=== PATIENT | male | born 1950 | race Caucasian/White ===

== ENCOUNTER 2018-05-03 16:26 | Inpatient (IN) | payer MEDICARE ==
[~2018-05-03] VITALS: Ht 172.7 cm; Wt 70.5 kg
[~2018-05-03 16:26] MED LIST: ALBU2.5V5 NEB; CEFP200T PO; DOXY100T PO; FLUT1DIS3 IH; FLUT1DIS5 IH; FURO-69 PO; LEVO750T31 PO; METO25TA4 PO; PANT40TA3 PO; POTA10TA12 PO; PRED-220 PO; TAMS0.4C97 PO; TIOT18CA IH
[2018-05-03] MEDS ORDERED: IV NORMAL SALINE 1000ML BAG 1,000 ML IV ONE (16:45)
[2018-05-03 16:55] LABS: BASO % 0 % (0-3); EOS # 0.1 x10^3/uL (0.0-0.7); EOS % 1 % (0-3); HEMATOCRIT 40.9 % (39.0-53.0); HEMOGLOBIN 13.4 g/dL (13.0-17.5); LYMPH # 0.7 x10^3/uL (1.0-4.8); LYMPH % 5 % (24-48); MEAN CORPUSCULAR HEMOGLOBIN 30 pg (25-35); MEAN CORPUSCULAR HGB CONC 33 g/dL (31-37); MEAN CORPUSCULAR VOLUME 92 fL (79-100); MONO # 0.8 x10^3/uL (0.0-1.1); MONO % 5 % (0-9); NEUT # 13.7 x10^3uL (1.8-7.7); NEUT % 89 % (31-73); PLATELET COUNT 225 x10^3/uL (140-400); RED BLOOD COUNT 4.44 x10^6/uL (4.30-5.70); RED CELL DISTRIBUTION WIDTH 13.7 % (11.5-14.5); WHITE BLOOD COUNT 15.3 x10^3/uL (4.0-11.0)
--- NOTE | 2018-05-03 17:12 | RAD ---
CHEST AP ONLY History: Shortness of air, wet cough Comparison: 04/14/2016 Findings: Single view of the chest is submitted. There are patchy foci of airspace and interstitial opacity greatest of the mid hemithoraces. There is no pleural fluid or pneumothorax. Heart size is stable, within normal limits. Impression: 1. There are patchy foci of airspace and interstitial opacity bilaterally which may be due to pneumonia or edema. Electronically signed by: Salvador Alva MD (05/03/2018 5:07 PM) [facility]
[2018-05-03] MEDS ORDERED: IPRATRPIUM/ALBUTEROL 0.5/2.5MG 3 ML NEBU. NEB ONE ×2 (17:15→19:15)
[2018-05-03] MEDS ORDERED: methylPREDNISolone SOD SUCC PF 125 MG/2 ML VIAL. IV ONE (17:15)
[2018-05-03 17:20] LABS: % BANDS 9 % (0-9); % LYMPHS 11 % (24-48); % MONOS 4 % (0-10); % SEGS 76 % (35-66); PLT ESTIMATE ADEQUATE (ADEQUATE)
[2018-05-03] MEDS ORDERED: AZITHRMYCN 500MG IVPB FOR OMNI 250 ML IV ONE (17:30)
[2018-05-03] MEDS ORDERED: cefTRIAXone IV Push 1 GM VIAL. IVP ONE (17:30)
--- NOTE | 2018-05-03 17:30 | PHYS DOC ---
Past Medical History Past Medical History: Asthma, CHF, COPD, GERD Additional Past Medical Histor: BPH, home oxygen Past Surgical History: Other Additional Past Surgical Histo: left shoulder rotator cuff repair Additional Information: 1/2 ppd Alcohol Use: Sober Drug Use: None Adult General Chief Complaint Chief Complaint: DYSPNEA/RESPIRATOY DISTRESS HPI HPI 67-year-old male presents to ER via EMS for complaints of shortness of air. Per EMS patient was dropped off at the fire station with oxygenation of 68% and was cyanotic around the lips. Patient is O2 dependent with history of COPD. EMS administered DuoNeb with improved symptoms prior to arrival to ER. On arrival patient is on oxygen via nasal cannula with O2 sat of 89-90%. Patient is denying any pain. Pt reports over past few days he has started feeling fatigued with prod. cough. He reports he felt feverish. He denies CP/palpitations. He denies swelling. He reports his appetite has been less- denies N/V/D. He denies urinary sxs. He reports he smokes <1ppd. He denies any recent travel. He denies flu vaccine in 2018. Review of Systems Review of Systems Constitutional: Reports feeling feverish with gen. weakness/fatigue Eyes: Denies change in visual acuity, redness, or eye pain [] HENT: Denies nasal congestion or sore throat [] Respiratory: Reports prod. cough with SOA Cardiovascular: Denies CP/palpitations GI: Denies abdominal pain, nausea, vomiting, bloody stools or diarrhea [] : Denies dysuria or hematuria [] Musculoskeletal: Denies back/neck pain or joint pain [] Integument: Denies rash, swelling or skin lesions [] Neurologic: Denies headache, focal weakness or sensory changes [] Endocrine: Denies polyuria or polydipsia [] All other systems were reviewed and found to be within normal limits, except as documented in this note. Current Medications Current Medications Current Medications Medications (Trade) Dose Ordered Sig/Elijah Start Time Stop Time Status Last Admin Dose Admin Albuterol/ Ipratropium (Duoneb) 3 ml 1X ONCE 05/03/18 17:15 05/03/18 17:16 DC 05/03/18 17:01 3 ML Azithromycin 250 ml @ 250 mls/hr 1X ONCE 05/03/18 17:30 05/03/18 18:29 DC 05/03/18 18:11 250 MLS/HR Ceftriaxone Sodium (Rocephin) 1 gm 1X ONCE 05/03/18 17:30 05/03/18 17:31 DC 05/03/18 18:06 1 GM Methylprednisolone Sodium Succinate (SOLU-Medrol 125MG VIAL) 125 mg 1X ONCE 05/03/18 17:15 05/03/18 17:16 DC 05/03/18 18:02 125 MG Sodium Chloride 1,000 ml @ 1,000 mls/hr 1X ONCE 05/03/18 16:45 05/03/18 17:44 DC 05/03/18 18:00 1,000 MLS/HR Allergies Allergies Allergies Coded Allergies Type Severity Reaction Last Updated Verified morphine Adverse Reaction Intermediate Itching 04/14/16 Yes Physical Exam Physical Exam Constitutional: Well developed, well nourished, no acute distress, non-toxic appearance. Speaking in full sentences HENT: Normocephalic, atraumatic, bilateral ears normal, mucous membranes pink/ dry, nose normal. [] Eyes: Pupils equal, conjunctiva normal, no discharge. [] Neck: Normal range of motion, no tenderness, supple, no stridor/gross adenopathy. Trachea midline Cardiovascular: Tachycardic heart rate regular rhythm, no murmur [] Lungs & Thorax: Coarse rhonchi with expiratory wheezing in upper lobes- diminished air movement throughout all lung munson with less air movement in bases. Resp. labored. Abdomen: Bowel sounds normal, soft, no tenderness Skin: Warm, dry, no erythema, no rash. [] Back: No tenderness, no CVA tenderness. [] Extremities: No tenderness, no cyanosis, no clubbing, ROM intact, no edema. [] Neurologic: Alert and oriented X 3, normal motor function, normal sensory function, no focal deficits noted. [] Psychologic: Affect normal, judgement normal, mood normal. [] Current Patient Data Vital Signs Vital Signs Date Time Temp Pulse Resp B/P (MAP) Pulse Ox O2 Delivery O2 Flow Rate FiO2 05/03/18 17:30 94 24 133/64 (87) 92 Nasal Cannula 4.0 05/03/18 16:26 98.9 98.9 Lab Values Laboratory Tests Test 05/03/18 16:40 05/03/18 17:13 05/03/18 17:15 White Blood Count 15.3 x10^3/uL (4.0-11.0) H Red Blood Count 4.44 x10^6/uL (4.30-5.70) Hemoglobin 13.4 g/dL (13.0-17.5) Hematocrit 40.9 % (39.0-53.0) Mean Corpuscular Volume 92 fL (79-100) Mean Corpuscular Hemoglobin 30 pg (25-35) Mean Corpuscular Hemoglobin Concent 33 g/dL (31-37) Red Cell Distribution Width 13.7 % (11.5-14.5) Platelet Count 225 x10^3/uL (140-400) Neutrophils (%) (Auto) 89 % (31-73) H Lymphocytes (%) (Auto) 5 % (24-48) L Monocytes (%) (Auto) 5 % (0-9) Eosinophils (%) (Auto) 1 % (0-3) Basophils (%) (Auto) 0 % (0-3) Neutrophils # (Auto) 13.7 x10^3uL (1.8-7.7) H Lymphocytes # (Auto) 0.7 x10^3/uL (1.0-4.8) L Monocytes # (Auto) 0.8 x10^3/uL (0.0-1.1) Eosinophils # (Auto) 0.1 x10^3/uL (0.0-0.7) Basophils # (Auto) 0.0 x10^3/uL (0.0-0.2) Segmented Neutrophils % 76 % (35-66) H Band Neutrophils % 9 % (0-9) Lymphocytes % 11 % (24-48) L Monocytes % 4 % (0-10) Platelet Estimate Adequate (ADEQUATE) Influenza Type A Antigen Negative (NEGATIVE) Influenza Type B Antigen Negative (NEGATIVE) Sodium Level 139 mmol/L (136-145) Potassium Level 4.3 mmol/L (3.5-5.1) Chloride Level 93 mmol/L (98-107) L Carbon Dioxide Level 42 mmol/L (21-32) H Anion Gap 4 (6-14) L Blood Urea Nitrogen 15 mg/dL (8-26) Creatinine 0.5 mg/dL (0.7-1.3) L Estimated GFR (Cockcroft-Gault) 165.4 BUN/Creatinine Ratio 30 (6-20) H Glucose Level 163 mg/dL (70-99) H Lactic Acid Level 1.3 mmol/L (0.4-2.0) Calcium Level 9.1 mg/dL (8.5-10.1) Magnesium Level 2.0 mg/dL (1.8-2.4) Total Bilirubin 0.5 mg/dL (0.2-1.0) Aspartate Amino Transferase (AST) 16 U/L (15-37) Alanine Aminotransferase (ALT) 13 U/L (16-63) L Alkaline Phosphatase 145 U/L (46-116) H Troponin I Quantitative < 0.017 ng/mL (0.000-0.055) Total Protein 6.8 g/dL (6.4-8.2) Albumin 3.3 g/dL (3.4-5.0) L Albumin/Globulin Ratio 0.9 (1.0-1.7) L Laboratory Tests 05/03/18 16:40 Laboratory Tests 05/03/18 17:15 Microbiology 05/03/18 Blood Culture - Final, Complete NO GROWTH AFTER 5 DAYS EKG EKG EKG obtained 05/03/18 at [address] Negron Sinus tachycardia Rate 105 No STEMI Radiology/Procedures Radiology/Procedures PROCEDURE: CHEST AP ONLY CHEST AP ONLY History: Shortness of air, wet cough Comparison: 04/14/2016 Findings: Single view of the chest is submitted. There are patchy foci of airspace and interstitial opacity greatest of the mid hemithoraces. There is no pleural fluid or pneumothorax. Heart size is stable, within normal limits. Impression: 1. There are patchy foci of airspace and interstitial opacity bilaterally which may be due to pneumonia or edema. Electronically signed by: Donovan Blanchard MD (05/03/2018 5:07 PM) [facility] DICTATED and SIGNED BY: DONOVAN BLANCHARD MD DATE: 05/03/18 6428 Course & Med Decision Making Course & Med Decision Making Pertinent Labs and Imaging studies reviewed. (See chart for details) 1740: On reevaluation following dose of Solu-Medrol and DuoNeb treatment patient reports his symptoms have significantly improved. Respirations are equal and nonlabored. Patient has improved lung sounds throughout with increased air movement in bases. Patient is speaking in full sentences. Discussed chest x-ray with probable pneumonia and WBCs at 15.3 with 9 bands. Patient denies any recent hospitalization. Blood cultures were obtained and lactic acid was normal limits at 1.3. Patient was started on IV Rocephin and azithromycin for CAP. Discussed plans for admission and pt is agreeable. Will admit to hospitalist services for further care/monitoring. 1814: Spoke with Dr. Cutler, hospitalist and discussed pt's case and plan of care- per his request will consult pulmonology with admit orders. Pt while waiting on room assignment for admit started having increased SOA- O2 sat mid 80's on 4L O2. Additional Duoneb ordered. Dragon Disclaimer Dragon Disclaimer This electronic medical record was generated, in whole or in part, using a voice recognition dictation system. Departure Departure Impression: Primary Impression: COPD exacerbation Additional Impression: Pneumonia Disposition: ADMITTED INPATIENT Admitting Physician: Casandra Cutler Condition: STABLE Referrals: TOMMIE FLAHERTY MD (PCP) Scripts Ipratropium/Albuterol Sulfate (DUONEB 0.5-3(2.5) MG/3 ML) 3 Ml Ampul.neb 3 ML NEB RTQID for copd MDD 1, #30 EACH Prov: ALBERT MONTEZ MD 05/10/18 Problem Qualifiers EUGENE BANDA APRN May 03, 2018 17:30
[2018-05-03 17:35] LABS: CALCIUM 9.1 mg/dL (8.5-10.1); CREATININE 0.5 mg/dL (0.7-1.3); GFR 165.4; POTASSIUM 4.3 mmol/L (3.5-5.1)
[2018-05-03 17:41] LABS: ALBUMIN 3.3 g/dL (3.4-5.0); ALBUMIN/GLOBULIN RATIO 0.9 (1.0-1.7); TOTAL BILIRUBIN 0.5 mg/dL (0.2-1.0); TOTAL PROTEIN 6.8 g/dL (6.4-8.2)
[2018-05-03 17:51] LABS: INFLUENZA A PATIENT NEGATIVE (NEGATIVE); INFLUENZA B PATIENT NEGATIVE (NEGATIVE)
[2018-05-03 19:15] LABS: BASE EXCESS COOX 10 mmol/L (-3-3); HCO3 COOX 39 mmol/L (21-28); METHEMOGLOBIN 0.3 % (0.0-1.9); OXYHEMOGLOBIN 85.1 %; PO2 COOX 56 mmHg (65-108); SAT O2 COOX 88 % (92-99)
[2018-05-03 19:45] VITALS: BP 117/72
--- NOTE | 2018-05-03 19:45 | NUR ---
The patient, YOUNG PENNINGTON, 67 y/o, M admitted by ANÍBAL BAUTISTA III, DO, was given written information regarding hospital policies, unit procedures and contact persons. Valuables were checked and left with the patient.
[2018-05-03 20:24] LABS: PCO2 COOX 79 mmHg (35-46)
[2018-05-03 23:00] VITALS: BP 112/58
[2018-05-04 03:00] VITALS: BP 123/71
[2018-05-04 07:15] VITALS: BP 142/80
[2018-05-04] MEDS ORDERED: IPRATRPIUM/ALBUTEROL 0.5/2.5MG 3 ML NEBU. NEB STA (07:49)
--- NOTE | 2018-05-04 07:57 | PDOC1 ---
History and Physical Date of Admission Date of Admission DATE: 05/03/18 TIME: 19:54 Identification/Chief Complaint Chief Complaint Shortness of breath Source Source: Chart review, Patient History of Present Illness History of Present Illness 65-year-old smoker with COPD, who started having respiratory symptoms about 2 weeks ago. He relates that between coughing, shortness of breath, sneezing and nasal dripping, symptoms were essentially getting worse and worse. He does have COPD and is home O2 dependent on 2 liters. This, however, does not keep him from smoking on a regular basis. His breathing even at rest has been getting worse. Cough is significant. He denied any fevers or chills over the past couple of weeks. Denies any sick contact. Did not have the flu vaccine. POC rapid flu testing negative Per EMS patient was dropped off at the fire station with oxygenation of 68% and was cyanotic around the lips. Patient is O2 dependent with history of COPD. EMS administered DuoNeb with improved symptoms prior to arrival to ER. On arrival patient is on oxygen via nasal cannula with O2 sat of 89-90%, however he was continuing to have increased respirations and desaturations. Patient is denying any pain. Pt reports over past few days he has started feeling fatigued with prod. cough. He reports he felt feverish. He denies CP/palpitations. He denies swelling. He reports his appetite has been less- denies N/V/D. He denies urinary sxs. He reports he smokes <1ppd. Placed on BIPAP after my eval 17/10 with rate of 18 and FI02 of 60%. Past Medical History Cardiovascular: Other Pulmonary: COPD, Pneumonia, Other GI: No pertinent hx Heme/Onc: No pertinent hx Hepatobiliary: No pertinent hx Psych: No pertinent hx Musculoskeletal: No pain Rheumatologic: No pertinent hx Infectious disease: No pertinent hx Renal/: No pertinent hx Endocrine: No pertinent hx Past Surgical History Past Surgical History: Other Family History Family History: Hypertension Social History ALCOHOL: none Drugs: None Current Problem List Problem List Problems Medical Problems: (1) COPD exacerbation Status: Acute Current Medications Current Medications Current Medications Albuterol/ Ipratropium (Duoneb) 3 ml 1X ONCE NEB Last administered on at 17:01; Start 05/03/18 at 17:15; Stop 05/03/18 at 17:16; Status DC Sodium Chloride 1,000 ml @ 1,000 mls/hr 1X ONCE IV Last administered on at 18:00; Start 05/03/18 at 16:45; Stop 05/03/18 at 17:44; Status DC Methylprednisolone Sodium Succinate (SOLU-Medrol 125MG VIAL) 125 mg 1X ONCE IV Last administered on 05/03/18at 18:02; Start 05/03/18 at 17:15; Stop 05/03/18 at 17:16; Status DC Ceftriaxone Sodium (Rocephin) 1 gm 1X ONCE IVP Last administered on 05/03/18at 18:06; Start 05/03/18 at 17:30; Stop 05/03/18 at 17:31; Status DC Azithromycin 250 ml @ 250 mls/hr 1X ONCE IV Last administered on 05/03/18at 18: 11; Start 05/03/18 at 17:30; Stop 05/03/18 at 18:29; Status DC Albuterol/ Ipratropium (Duoneb) 3 ml 1X ONCE NEB Last administered on at 19:06; Start 05/03/18 at 19:15; Stop 05/03/18 at 19:16; Status DC Influenza Virus Vaccine (Afluria Trivalent [id number] Syringe) 0.5 ml ONCE ONCE VAX IM ; Start 05/03/18 at 20:30; Stop 05/03/18 at 20:34; Status DC Albuterol/ Ipratropium (Duoneb) 3 ml RTQID NEB ; Start 05/04/18 at 08:00 Methylprednisolone Sodium Succinate (SOLU-Medrol 40MG VIAL) 40 mg Q12HR IV ; Start 05/04/18 at 09:00; Status UNV Budesonide (Pulmicort) 0.5 mg RTBID NEB ; Start 05/04/18 at 08:00; Status UNV Ceftriaxone Sodium (Rocephin) 1 gm Q24H IVP ; Start 05/04/18 at 08:00; Status UNV Doxycycline Hyclate 100 mg/ Dextrose 100 ml @ 50 mls/hr Q12HR IV ; Start at 09:00; Status UNV Albuterol/ Ipratropium (Duoneb) 3 ml 1X STAT NEB ; Start 05/04/18 at 07:49; Stop 05/04/18 at 07:50; Status UNV Albuterol Sulfate (Ventolin Neb Soln) 2.5 mg PRN Q4HRS NEB ; Start 05/04/18 at 08:00; Status UNV Metoprolol Tartrate (Lopressor) 12.5 mg BID PO ; Start 05/04/18 at 09:00; Status UNV Pantoprazole Sodium (Protonix) 40 mg DAILY PO ; Start 05/04/18 at 09:00; Status UNV Potassium Chloride (Klor-Con) 10 meq DAILY PO ; Start 05/04/18 at 09:00; Status UNV Tamsulosin HCl (Flomax) 0.4 mg DAILY PO ; Start 05/04/18 at 09:00; Status UNV Non-Formulary Medication (Tiotropium Rodessa (Spiriva)) 1 cap DAILY IH ; Start 05/04/18 at 09:00; Status UNV Active Scripts Active Doxycycline Hyclate 100 Mg Tablet 100 Mg PO BID Prednisone (Prednisone) 10 Mg Tablet 10 Mg PO UD Take 4 tablets by mouth daily for 5 days, then take 3 tablets by mouth daily for 5 days, then resume home dose of prednisone Prednisone (Prednisone) 10 Mg Tablet 10 Mg PO UD Take 4 tablets by mouth daily for 3 days, then take 3 tablets by mouth daily for 3 days, then take 2 tablet by mouth daily for 3 days, then take 1 tablet by mouth daily x 3 days, then stop. Reported Protonix (Pantoprazole Sodium) 40 Mg Tablet.dr 40 Mg PO DAILY Potassium Chloride 10 Meq Capsule.er 10 Meq PO DAILY Lasix (Furosemide) 20 Mg Tablet 1 Tab PO DAILY Albuterol Sulfate Neb Soln (Albuterol Sulfate) 2.5 Mg/3 Ml Vial.neb 1 Vial NEB PRN Q4HRS Advair 500-50 Diskus (Fluticasone/Salmeterol) 1 Each Disk.w.dev 1 Puff IH DAILY Spiriva (Tiotropium Rodessa) 18 Mcg Cap.w.dev 1 Cap IH DAILY Flomax (Tamsulosin Hcl) 0.4 Mg Cap.er.24h 1 Cap PO DAILY Metoprolol Tartrate 25 Mg Tablet 12.5 Mg PO BID Allergies Allergies: Coded Allergies: No Known Medication Allergies (Verified Allergy, Unknown, 3/5/19) morphine (Verified Adverse Reaction, Intermediate, Itching, 04/14/16) ROS General: YES: Fatigue, Malaise, Appetite; No: Chills, Night Sweats, Other PSYCHOLOGICAL ROS: No: Anxiety, Behavioral Disorder, Concentration difficultie , Decreased libido, Depression, Disorientation, Hallucinations, Hostility, Irritablity, Memory difficulties, Mood Swings, Obsessive thoughts, Physical abuse, Sexual abuse, Sleep disturbances, Suicidal ideation, Other Eyes: No Blurry vision, No Decreased vision, No Double vision, No Dry eyes, No Excessive tearing, No Eye Pain, No Itchy Eyes, No Loss of vision, No Photophobia , No Scotomata, No Uses contacts, No Uses glasses, No Other HEENT: No: Heacaches, Visual Changes, Hearing change, Nasal congestion, Nasal discharge, Oral lesions, Sinus pain, Sore Throat, Epistaxis, Sneezing, Snoring, Tinnitus, Vertigo, Vocal changes, Other ALLERGY AND IMMUNOLOGY: No: Hives, Insect Bite Sensitivity, Itchy/Watery Eyes, Nasal Congestion, Post Nasal Drip, Seasonal Allergies, Other Hematological and Lymphatic: No: Bleeding Problems, Blood Clots, Blood Transfusions, Brusing, Night Sweats, Pallor, Swollen Lymph Nodes, Other ENDOCRINE: No: Breast Changes, Galactorrhea, Hair Pattern Changes, Hot Flashes , Malaise/lethargy, Mood Swings, Palpitations, Polydipsia/polyuria, Skin Changes , Temperature Intolerance, Unexpected Weight Changes, Other Breast: No New/Changing Breast Lumps, No Nipple changes, No Nipple discharge, No Other Respiratory: YES: Cough, Shortness of breath, SOB with excertion, Tachypnea, Wheezing Cardiovascular: yes Palpitations, yes Edema; No Chest Pain, No Orthopnea, No Paroxysmal Noc. Dyspnea, No Lt Headedness, No Other Gastrointestinal: Yes Nausea, Yes Abdominal Pain; No Vomiting, No Diarrhea, No Constipation, No Melena, No Hematochezia, No Other Genitourinary: YES Flank Pain; No Dysuria, No Frequency, No Incontinence, No Hematuria, No Retention, No Discharge, No Urgency, No Pain, No Other, No , No , No , No , No , No , No Musculoskeletal: No Gait Disturbance, No Joint Pain, No Joint Stiffness, No Joint Swelling, No Muscle Pain, No Muscular Weakness, No Pain In:, No Swelling In:, No Other Neurological: No Behavorial Changes, No Bowel/Bladder ControlChng, No Confusion , No Dizziness, No Gait Disturbance, No Headaches, No Impaired Coord/balance, No Memory Loss, No Numbness/Tingling, No Seizures, No Speech Problems, No Tremors, No Visual Changes, No Weakness, No Other Skin: No Dry Skin, No Eczema, No Hair Changes, No Lumps, No Mole Changes, No Mottling, No Nail Changes, No Pruritus, No Rash, No Skin Lesion Changes, No Other, No Acne Physical Exam General: Alert, Oriented X3, Cooperative, No acute distress HEENT: Atraumatic, PERRLA, EOMI, Mucous membr. moist/pink Lungs: Other (Diffuse wheezes bilaterally with basilar rhonchi) Heart: S1S2, RRR, murmurs (4/6 systolic ejection murmur heard best at right 2nd ICS) Abdomen: Normal bowel sounds, Soft, No hepatosplenomegaly, No masses Extremities: No clubbing, No cyanosis, No edema, Normal pulses, No tenderness/ swelling Skin: No rashes, No breakdown, No significant lesion Neuro: Normal gait, Normal speech, Strength at 5/5 X4 ext, Normal tone, Sensation intact, Cranial nerves 3-12 NL, Reflexes 2+ Psych/Mental Status: Mental status NL, Mood NL Vitals Vitals Vital Signs Date Time Temp Pulse Resp B/P (MAP) Pulse Ox O2 Delivery O2 Flow Rate FiO2 05/04/18 07:37 100 BiPAP/CPAP 05/04/18 07:15 98.6 108 22 142/80 (100) 98.6 05/03/18 21:00 4.0 Labs Labs Laboratory Tests Test 05/03/18 16:40 05/03/18 17:13 05/03/18 17:15 05/03/18 19:12 White Blood Count 15.3 x10^3/uL (4.0-11.0) Red Blood Count 4.44 x10^6/uL (4.30-5.70) Hemoglobin 13.4 g/dL (13.0-17.5) Hematocrit 40.9 % (39.0-53.0) Mean Corpuscular Volume 92 fL (79-100) Mean Corpuscular Hemoglobin 30 pg (25-35) Mean Corpuscular Hemoglobin Concent 33 g/dL (31-37) Red Cell Distribution Width 13.7 % (11.5-14.5) Platelet Count 225 x10^3/uL (140-400) Neutrophils (%) (Auto) 89 % (31-73) Lymphocytes (%) (Auto) 5 % (24-48) Monocytes (%) (Auto) 5 % (0-9) Eosinophils (%) (Auto) 1 % (0-3) Basophils (%) (Auto) 0 % (0-3) Neutrophils # (Auto) 13.7 x10^3uL (1.8-7.7) Lymphocytes # (Auto) 0.7 x10^3/uL (1.0-4.8) Monocytes # (Auto) 0.8 x10^3/uL (0.0-1.1) Eosinophils # (Auto) 0.1 x10^3/uL (0.0-0.7) Basophils # (Auto) 0.0 x10^3/uL (0.0-0.2) Segmented Neutrophils % 76 % (35-66) Band Neutrophils % 9 % (0-9) Lymphocytes % 11 % (24-48) Monocytes % 4 % (0-10) Platelet Estimate Adequate (ADEQUATE) Influenza Type A Antigen Negative (NEGATIVE) Influenza Type B Antigen Negative (NEGATIVE) Sodium Level 139 mmol/L (136-145) Potassium Level 4.3 mmol/L (3.5-5.1) Chloride Level 93 mmol/L (98-107) Carbon Dioxide Level 42 mmol/L (21-32) Anion Gap 4 (6-14) Blood Urea Nitrogen 15 mg/dL (8-26) Creatinine 0.5 mg/dL (0.7-1.3) Estimated GFR (Cockcroft-Gault) 165.4 BUN/Creatinine Ratio 30 (6-20) Glucose Level 163 mg/dL (70-99) Lactic Acid Level 1.3 mmol/L (0.4-2.0) Calcium Level 9.1 mg/dL (8.5-10.1) Magnesium Level 2.0 mg/dL (1.8-2.4) Total Bilirubin 0.5 mg/dL (0.2-1.0) Aspartate Amino Transf (AST/SGOT) 16 U/L (15-37) Alanine Aminotransferase (ALT/SGPT) 13 U/L (16-63) Alkaline Phosphatase 145 U/L (46-116) Troponin I Quantitative < 0.017 ng/mL (0.000-0.055) Total Protein 6.8 g/dL (6.4-8.2) Albumin 3.3 g/dL (3.4-5.0) Albumin/Globulin Ratio 0.9 (1.0-1.7) O2 Saturation 88 % (92-99) Arterial Blood pH 7.32 (7.35-7.45) Arterial Blood pCO2 at Patient Temp 79 mmHg (35-46) Arterial Blood pO2 at Patient Temp 56 mmHg (65-108) Arterial Blood HCO3 39 mmol/L (21-28) Arterial Blood Base Excess 10 mmol/L (-3-3) Oxyhemoglobin 85.1 % Methemoglobin 0.3 % (0.0-1.9) Carbon Monoxide, Quantitative 2.8 % (0.0-1.9) FiO2 36 Laboratory Tests Test 05/03/18 16:40 05/03/18 17:13 05/03/18 17:15 05/03/18 19:12 White Blood Count 15.3 x10^3/uL (4.0-11.0) Red Blood Count 4.44 x10^6/uL (4.30-5.70) Hemoglobin 13.4 g/dL (13.0-17.5) Hematocrit 40.9 % (39.0-53.0) Mean Corpuscular Volume 92 fL (79-100) Mean Corpuscular Hemoglobin 30 pg (25-35) Mean Corpuscular Hemoglobin Concent 33 g/dL (31-37) Red Cell Distribution Width 13.7 % (11.5-14.5) Platelet Count 225 x10^3/uL (140-400) Neutrophils (%) (Auto) 89 % (31-73) Lymphocytes (%) (Auto) 5 % (24-48) Monocytes (%) (Auto) 5 % (0-9) Eosinophils (%) (Auto) 1 % (0-3) Basophils (%) (Auto) 0 % (0-3) Neutrophils # (Auto) 13.7 x10^3uL (1.8-7.7) Lymphocytes # (Auto) 0.7 x10^3/uL (1.0-4.8) Monocytes # (Auto) 0.8 x10^3/uL (0.0-1.1) Eosinophils # (Auto) 0.1 x10^3/uL (0.0-0.7) Basophils # (Auto) 0.0 x10^3/uL (0.0-0.2) Segmented Neutrophils % 76 % (35-66) Band Neutrophils % 9 % (0-9) Lymphocytes % 11 % (24-48) Monocytes % 4 % (0-10) Platelet Estimate Adequate (ADEQUATE) Influenza Type A Antigen Negative (NEGATIVE) Influenza Type B Antigen Negative (NEGATIVE) Sodium Level 139 mmol/L (136-145) Potassium Level 4.3 mmol/L (3.5-5.1) Chloride Level 93 mmol/L (98-107) Carbon Dioxide Level 42 mmol/L (21-32) Anion Gap 4 (6-14) Blood Urea Nitrogen 15 mg/dL (8-26) Creatinine 0.5 mg/dL (0.7-1.3) Estimated GFR (Cockcroft-Gault) 165.4 BUN/Creatinine Ratio 30 (6-20) Glucose Level 163 mg/dL (70-99) Lactic Acid Level 1.3 mmol/L (0.4-2.0) Calcium Level 9.1 mg/dL (8.5-10.1) Magnesium Level 2.0 mg/dL (1.8-2.4) Total Bilirubin 0.5 mg/dL (0.2-1.0) Aspartate Amino Transf (AST/SGOT) 16 U/L (15-37) Alanine Aminotransferase (ALT/SGPT) 13 U/L (16-63) Alkaline Phosphatase 145 U/L (46-116) Troponin I Quantitative < 0.017 ng/mL (0.000-0.055) Total Protein 6.8 g/dL (6.4-8.2) Albumin 3.3 g/dL (3.4-5.0) Albumin/Globulin Ratio 0.9 (1.0-1.7) O2 Saturation 88 % (92-99) Arterial Blood pH 7.32 (7.35-7.45) Arterial Blood pCO2 at Patient Temp 79 mmHg (35-46) Arterial Blood pO2 at Patient Temp 56 mmHg (65-108) Arterial Blood HCO3 39 mmol/L (21-28) Arterial Blood Base Excess 10 mmol/L (-3-3) Oxyhemoglobin 85.1 % Methemoglobin 0.3 % (0.0-1.9) Carbon Monoxide, Quantitative 2.8 % (0.0-1.9) FiO2 36 Images Images CXR - There are patchy foci of airspace and interstitial opacity bilaterally which may be due to pneumonia or edema. VTE Prophylaxis Ordered VTE Prophylaxis Devices: No VTE Pharmacological Prophylaxi: Yes Assessment/Plan Assessment/Plan A/P: [id number] respiratory failure - on BIPAP currently. Steroids, nebs, treat pneumonia. Consult pulm Community acquired pneumonia - rocephin + doxy Sepsis - tachy with RR and leukocytosis, this is likely from gram positive or high risk of gram negative/atypical pneumonia with history of COPD. Given IVF. Antibiotics given Acute exacerbation of chronic obstructive pulmonary disease - as above, nebs, steroids Tobacco dependence - counseled. Nicotine patch Murmur - systolic, awaiting TTE. Likely from . Consulted cardiology per pt request HTN: controlled HLD - statin FEN - renal PPX - Heparin FULL CODE Inpatient for CAP with COPD exacerbation complicated by hypoxia and sepsis EVGENY ELIZABETH MD May 04, 2018 07:57
[2018-05-04] MEDS: BUDESONIDE 0.5 MG/2 ML NEBU. NEB SCH ×2 (08:00→19:48)
[2018-05-04] MEDS ORDERED: ALBUTEROL SULFATE 2.5 MG/3 ML NEBU. NEB PRN (08:00)
[2018-05-04] MEDS: IPRATRPIUM/ALBUTEROL 0.5/2.5MG 3 ML NEBU. NEB SCH ×4 (08:00→19:48)
--- NOTE | 2018-05-04 08:27 | EKG ---
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
[2018-05-04] MEDS ORDERED: NON FORMULARY ITEM (Tiotropium Bromide (Spiriva) 1 CAP) IH SCH (09:00)
[2018-05-04 09:15] LABS: BASO % 0 % (0-3); EOS % 0 % (0-3); HEMATOCRIT 40.3 % (39.0-53.0); LYMPH # 0.6 x10^3/uL (1.0-4.8); LYMPH % 3 % (24-48); MEAN CORPUSCULAR HEMOGLOBIN 30 pg (25-35); MEAN CORPUSCULAR HGB CONC 32 g/dL (31-37); MEAN CORPUSCULAR VOLUME 93 fL (79-100); MONO # 0.4 x10^3/uL (0.0-1.1); MONO % 3 % (0-9); NEUT # 15.1 x10^3uL (1.8-7.7); NEUT % 94 % (31-73); PLATELET COUNT 292 x10^3/uL (140-400); RED BLOOD COUNT 4.32 x10^6/uL (4.30-5.70); WHITE BLOOD COUNT 16.1 x10^3/uL (4.0-11.0)
--- NOTE | 2018-05-04 09:21 | NUR ---
SW following pt for anticipated dc needs. Chart reviewed. Pt lives at home with family and has home 02. No SW needs indicated at this time. Will continue to assess needs.
[2018-05-04 09:34] LABS: CALCIUM 9.3 mg/dL (8.5-10.1); CREATININE 0.6 mg/dL (0.7-1.3); POTASSIUM 4.3 mmol/L (3.5-5.1)
[2018-05-04] MEDS: DOXYCYCLINE HYCLATE 100 MG in IV DEXTROSE 5% 100ML 100 ML IV SCH ×2 (09:46→21:11)
[2018-05-04] MEDS: methylPREDNISolone SOD SUCC PF 40 MG/ML VIAL. IV SCH ×2 (09:46→21:09)
[2018-05-04] MEDS: TAMSULOSIN 0.4 MG CAP.ER.24H. PO SCH (09:47)
[2018-05-04] MEDS: cefTRIAXone IV Push 1 GM VIAL. IVP SCH (09:47)
[2018-05-04] MEDS: PANTOPRAZOLE 40 MG TABLET.DR. PO SCH (09:47)
[2018-05-04] MEDS: POTASSIUM CHLORIDE 10 MEQ TABLET.ER. PO SCH (09:47)
[2018-05-04] MEDS: METOPROLOL TART IMMED RELEASE 25 MG TABLET. PO SCH ×2 (09:48→21:10)
[2018-05-04 11:01] VITALS: BP 142/80
[2018-05-04] MEDS ORDERED: IPRATRPIUM/ALBUTEROL 0.5/2.5MG 3 ML NEBU. NEB SCH (12:00)
--- NOTE | 2018-05-04 12:03 | PDOC2 ---
BEN ROSS DETACKER 05/04/18 1203: CARDIAC CONSULT DATE OF CONSULT Date of Consult DATE: 05/04/18 TIME: 11:57 REASON FOR CONSULT Reason for Consult: aortic stenosis, worsening murmur REFERRING PHYSICIAN Referring Physician: Char SOURCE Source: Chart review, Patient HISTORY OF PRESENT ILLNESS HISTORY OF PRESENT ILLNESS This is a pleasant 67 yo male admitted for complains of coughing and SOA. Reports that he has been getting more SOA in the last month. He also continued to smoke tobacco. Reports that in the last few days he has been coughing more productively with greenish sputum. He has been using his inhalers and continues O2 at 2.5 LPM at home but continues to be SOA. No complains of palpitations or chest pain. No leg edema. No fever but sometimes feels like having hot flashes. No prior hx of valvular disease, CAD or any arrhythmias. PAST MEDICAL HISTORY Past Medical History Cardiovascular: Other (coronary calcium noted on CT scan of chest) Pulmonary: COPD, Pneumonia, Other (emphysema) GI: GERD Heme/Onc: No pertinent hx Hepatobiliary: No pertinent hx Psych: No pertinent hx Musculoskeletal: OA Rheumatologic: No pertinent hx Infectious disease: No pertinent hx ENT: No pertinent hx Renal/: No pertinent hx Endocrine: No pertinent hx Dermatology: No pertinent hx PAST SURGICAL HISTORY Past Surgical History left rotator cuff repair X 2 FAMILY HISTORY Family History noncontributory to CV SOCIAL HISTORY Smoke: No ALCOHOL: none Drugs: None CURRENT MEDICATIONS CURRENT MEDICATIONS Current Medications Medications (Trade) Dose Ordered Sig/Elijah Route PRN Reason Start Time Stop Time Status Last Admin Dose Admin Albuterol/ Ipratropium (Duoneb) 3 ml 1X ONCE NEB 05/03/18 17:15 05/03/18 17:16 DC 05/03/18 17:01 Sodium Chloride 1,000 ml @ 1,000 mls/hr 1X ONCE IV 05/03/18 16:45 05/03/18 17:44 DC 05/03/18 18:00 Methylprednisolone Sodium Succinate (SOLU-Medrol 125MG VIAL) 125 mg 1X ONCE IV 05/03/18 17:15 05/03/18 17:16 DC 05/03/18 18:02 Ceftriaxone Sodium (Rocephin) 1 gm 1X ONCE IVP 05/03/18 17:30 05/03/18 17:31 DC 05/03/18 18:06 Azithromycin 250 ml @ 250 mls/hr 1X ONCE IV 05/03/18 17:30 05/03/18 18:29 DC 05/03/18 18:11 Albuterol/ Ipratropium (Duoneb) 3 ml 1X ONCE NEB 05/03/18 19:15 05/03/18 19:16 DC 05/03/18 19:06 Albuterol/ Ipratropium (Duoneb) 3 ml RTQID NEB 05/04/18 08:00 05/04/18 08:00 Methylprednisolone Sodium Succinate (SOLU-Medrol 40MG VIAL) 40 mg Q12HR IV 05/04/18 09:00 05/04/18 09:46 Budesonide (Pulmicort) 0.5 mg RTBID NEB 05/04/18 08:00 05/04/18 08:00 Ceftriaxone Sodium (Rocephin) 1 gm Q24H IVP 05/04/18 09:00 05/04/18 09:47 Doxycycline Hyclate 100 mg/ Dextrose 100 ml @ 50 mls/hr Q12HR IV 05/04/18 09:00 05/04/18 09:46 Albuterol/ Ipratropium (Duoneb) 3 ml 1X STAT NEB 05/04/18 07:49 05/04/18 08:02 DC 05/04/18 07:58 Metoprolol Tartrate (Lopressor) 12.5 mg BID PO 05/04/18 09:00 05/04/18 09:48 Pantoprazole Sodium (Protonix) 40 mg DAILYAC PO 05/04/18 09:00 05/04/18 09:47 Potassium Chloride (Klor-Con) 10 meq DAILY PO 05/04/18 09:00 05/04/18 09:47 Tamsulosin HCl (Flomax) 0.4 mg DAILY PO 05/04/18 09:00 05/04/18 09:47 ALLERGIES ALLERGIES: Coded Allergies: No Known Medication Allergies (Verified Allergy, Unknown, 05/04/18) morphine (Verified Adverse Reaction, Intermediate, Itching, 04/14/16) ROS Review of System 14 point ROS evaluated with pertinent positives noted per HPI PHYSICAL EXAM General: Alert, Oriented X3, Cooperative, mild distress HEENT: Atraumatic, Mucous membr. moist/pink Lungs: Other (diminished with diffuse wheeze) Heart: Regular rate (sinus tach), Normal S1, Normal S2, Other (2/6 systolic murmur otherwise no significant murmur) Abdomen: Soft, No tenderness Extremities: No cyanosis, No edema Skin: No breakdown, No significant lesion Neuro: Normal speech, Sensation intact Psych/Mental Status: Mental status NL, Mood NL MUSCULOSKELETAL: Osteoarthritic changes both hands VITALS VITALS Vital Signs Date Time Temp Pulse Resp B/P (MAP) Pulse Ox O2 Delivery O2 Flow Rate FiO2 05/04/18 11:01 98.9 105 20 142/80 (100) 93 BiPAP/CPAP 98.9 05/04/18 08:03 4.0 LABS Lab: Laboratory Tests Test 05/03/18 16:40 05/03/18 17:13 05/03/18 17:15 05/03/18 19:12 White Blood Count 15.3 x10^3/uL (4.0-11.0) Red Blood Count 4.44 x10^6/uL (4.30-5.70) Hemoglobin 13.4 g/dL (13.0-17.5) Hematocrit 40.9 % (39.0-53.0) Mean Corpuscular Volume 92 fL (79-100) Mean Corpuscular Hemoglobin 30 pg (25-35) Mean Corpuscular Hemoglobin Concent 33 g/dL (31-37) Red Cell Distribution Width 13.7 % (11.5-14.5) Platelet Count 225 x10^3/uL (140-400) Neutrophils (%) (Auto) 89 % (31-73) Lymphocytes (%) (Auto) 5 % (24-48) Monocytes (%) (Auto) 5 % (0-9) Eosinophils (%) (Auto) 1 % (0-3) Basophils (%) (Auto) 0 % (0-3) Neutrophils # (Auto) 13.7 x10^3uL (1.8-7.7) Lymphocytes # (Auto) 0.7 x10^3/uL (1.0-4.8) Monocytes # (Auto) 0.8 x10^3/uL (0.0-1.1) Eosinophils # (Auto) 0.1 x10^3/uL (0.0-0.7) Basophils # (Auto) 0.0 x10^3/uL (0.0-0.2) Segmented Neutrophils % 76 % (35-66) Band Neutrophils % 9 % (0-9) Lymphocytes % 11 % (24-48) Monocytes % 4 % (0-10) Platelet Estimate Adequate (ADEQUATE) Influenza Type A Antigen Negative (NEGATIVE) Influenza Type B Antigen Negative (NEGATIVE) Sodium Level 139 mmol/L (136-145) Potassium Level 4.3 mmol/L (3.5-5.1) Chloride Level 93 mmol/L (98-107) Carbon Dioxide Level 42 mmol/L (21-32) Anion Gap 4 (6-14) Blood Urea Nitrogen 15 mg/dL (8-26) Creatinine 0.5 mg/dL (0.7-1.3) Estimated GFR (Cockcroft-Gault) 165.4 BUN/Creatinine Ratio 30 (6-20) Glucose Level 163 mg/dL (70-99) Lactic Acid Level 1.3 mmol/L (0.4-2.0) Calcium Level 9.1 mg/dL (8.5-10.1) Magnesium Level 2.0 mg/dL (1.8-2.4) Total Bilirubin 0.5 mg/dL (0.2-1.0) Aspartate Amino Transf (AST/SGOT) 16 U/L (15-37) Alanine Aminotransferase (ALT/SGPT) 13 U/L (16-63) Alkaline Phosphatase 145 U/L (46-116) Troponin I Quantitative < 0.017 ng/mL (0.000-0.055) Total Protein 6.8 g/dL (6.4-8.2) Albumin 3.3 g/dL (3.4-5.0) Albumin/Globulin Ratio 0.9 (1.0-1.7) O2 Saturation 88 % (92-99) Arterial Blood pH 7.32 (7.35-7.45) Arterial Blood pCO2 at Patient Temp 79 mmHg (35-46) Arterial Blood pO2 at Patient Temp 56 mmHg (65-108) Arterial Blood HCO3 39 mmol/L (21-28) Arterial Blood Base Excess 10 mmol/L (-3-3) Oxyhemoglobin 85.1 % Methemoglobin 0.3 % (0.0-1.9) Carbon Monoxide, Quantitative 2.8 % (0.0-1.9) FiO2 36 Test 05/04/18 08:45 05/04/18 08:55 Sodium Level 139 mmol/L (136-145) Potassium Level 4.3 mmol/L (3.5-5.1) Chloride Level 95 mmol/L (98-107) Carbon Dioxide Level 42 mmol/L (21-32) Anion Gap 2 (6-14) Blood Urea Nitrogen 17 mg/dL (8-26) Creatinine 0.6 mg/dL (0.7-1.3) Estimated GFR (Cockcroft-Gault) 134.0 Glucose Level 197 mg/dL (70-99) Calcium Level 9.3 mg/dL (8.5-10.1) White Blood Count 16.1 x10^3/uL (4.0-11.0) Red Blood Count 4.32 x10^6/uL (4.30-5.70) Hemoglobin 13.0 g/dL (13.0-17.5) Hematocrit 40.3 % (39.0-53.0) Mean Corpuscular Volume 93 fL (79-100) Mean Corpuscular Hemoglobin 30 pg (25-35) Mean Corpuscular Hemoglobin Concent 32 g/dL (31-37) Red Cell Distribution Width 14.0 % (11.5-14.5) Platelet Count 292 x10^3/uL (140-400) Neutrophils (%) (Auto) 94 % (31-73) Lymphocytes (%) (Auto) 3 % (24-48) Monocytes (%) (Auto) 3 % (0-9) Eosinophils (%) (Auto) 0 % (0-3) Basophils (%) (Auto) 0 % (0-3) Neutrophils # (Auto) 15.1 x10^3uL (1.8-7.7) Lymphocytes # (Auto) 0.6 x10^3/uL (1.0-4.8) Monocytes # (Auto) 0.4 x10^3/uL (0.0-1.1) Eosinophils # (Auto) 0.0 x10^3/uL (0.0-0.7) Basophils # (Auto) 0.0 x10^3/uL (0.0-0.2) ECHOCARDIOGRAM ECHOCARDIOGRAM <Conclusion> The left ventricular systolic function is normal and the ejection fraction is within normal range. The Ejection Fraction is 55%. Doppler and Color Flow revealed trace to mild tricuspid regurgitation. The PA pressure was estimated at 48 mmHg. No significant valvular disease. DATE: 10/12/15 1534 ASSESSMENT/PLAN ASSESSMENT/PLAN 1. Acute respiratory failure with AECOPD with continued tobaccoism 2. Murmur: low grade systolic, none significant awaiting TTE. 3. Reactive sinus tach: physiologic 4. HTN: controlled 5. HLP Recommendations 1. Continue with bipap. May need to conuslt pulmonary will defer to PCP. 2. May hold BB with noted wheeze. 3. TTE. smopking cessation. supportive care. FAREED PRADO MD 05/04/18 1419: CARDIAC CONSULT ASSESSMENT/PLAN ASSESSMENT/PLAN Patient seen and examined. Agree with MANAGER OF DATA's assessment and plan. Sinus tachycardia physiologic 2-D echo showed normal LV function without any significant aortic stenosis Continue current treatment for acute COPD exacerbation per pulmonary team Thank you for your consultation BEN ROSS APRN May 04, 2018 12:03 FAREED PRADO MD May 04, 2018 14:19
--- NOTE | 2018-05-04 12:23 | CARD ---
MR#: [id number] Date of Study: 05/04/2018 Ordering Physician: BEN ROSS, Referring Physician: ANÍBAL BAUTISTA Tech: Selina Lua DAQUAN APPROVED REPORT EXAM: Two-dimensional and M-mode echocardiogram with Doppler and color Doppler. Other Information Quality : Technically LimitedHR: 100bpm Rhythm : TachycardiaTechnically limited study due to COPD. INDICATION Murmur 2D DIMENSIONS RVDd2.7 (2.9-3.5cm)Left Atrium(2D)3.3 (1.6-4.0cm) IVSd1.0 (0.7-1.1cm)Aortic Root(2D)4.1 (2.0-3.7cm) LVDd4.2 (3.9-5.9cm)LVOT Diameter2.1 (1.8-2.4cm) PWd1.0 (0.7-1.1cm)LVDs3.2 (2.5-4.0cm) FS (%) 24.7 %SV39.0 ml LVEF(%)49.4 (>50%) Aortic Valve AoV Peak Jesus.118.3cm/sAoV VTI25.1cm AO Peak GR.5.6mmHgLVOT Peak Jesus.85.1cm/s AO Mean GR.3mmHgAVA (VMAX)2.56cm2 JOSE (VTI)2.60cm2 Mitral Valve MV E Hwcxihno66.2cm/sMV DECEL ATBP589xi MV A Ltgleopy469.7cm/sE/A Ratio0.8 MV A Byzpjxpd20jq Pulmonary Valve PV Peak Cnovnlrj575.0cm/s Tricuspid Valve TR P. Hznmlpmz198kn/sRAP FWSMWAQO0xlJk TR Peak Gr.14rxFiULZH00ubKm LEFT VENTRICLE The left ventricle is normal size. There is normal left ventricular wall thickness. Left ventricle sy stolic function is normal. The Ejection Fraction is 50-55%. Septal motion consistent with increased r ight ventricular systolic pressure. Transmitral Doppler flow pattern is Grade I-abnormal relaxation p attern. RIGHT VENTRICLE The right ventricle is mildly dilated. There is normal right ventricular wall thickness. Systolic fun ction is borderline reduced. ATRIA The left atrium size is normal. The right atrium is mildly dilated. The interatrial septum is intact with no evidence for an atrial septal defect or patent foramen ovale as noted on 2-D or Doppler imagi ng. AORTIC VALVE The aortic valve is normal in structure and function. The aortic valve is trileaflet. Doppler and Col or Flow revealed no significant aortic regurgitation. There is no significant aortic valvular stenosi s. MITRAL VALVE The mitral valve is thickened but opens well. There is no evidence of mitral valve prolapse. There is no mitral valve stenosis. Doppler and Color Flow revealed no mitral valve regurgitation noted. TRICUSPID VALVE The tricuspid valve is normal in structure and function. Doppler and Color Flow revealed trace to mil d tricuspid regurgitation. There is moderate pulmonary hypertension. The PA pressure was estimated at 50 mmHg. There is no tricuspid valve prolapse or vegetation. There is no tricuspid valve stenosis. PULMONIC VALVE The pulmonary valve is normal in structure and function. Doppler and Color Flow revealed no pulmonic valvular regurgitation. There is no pulmonic valvular stenosis. GREAT VESSELS The aortic root is mildly enlarged. The ascending aorta is normal in size. The IVC is dilated and col lapses <50% with inspiration. PERICARDIAL EFFUSION There is no evidence of significant pericardial effusion. Critical Notification Critical Value: No <Conclusion> Left ventricle systolic function is normal. The Ejection Fraction is 50-55%. Transmitral Doppler flow pattern is Grade I-abnormal relaxation pattern. The right ventricle is mildly dilated. Trace to mild tricuspid regurgitation. There is moderate pulmonary hypertension. The PA pressure was estimated at 50 mmHg. There is no evidence of significant pericardial effusion. Signed by : Alexey Neal, Electronically Approved : 05/04/2018 12:23:06
[2018-05-04 15:07] VITALS: BP 130/70
--- NOTE | 2018-05-04 16:11 | NUR ---
SS following up with discharge planning. SS met with pt in room to discuss discharge planning. Pt reported that he lives with his niece in a trailer home and will need transportation home when ready to discharge. Pt also reported that he will need oxygen when he goes home as well. SS will continue to follow for discharge planning.
--- NOTE | 2018-05-04 16:54 | PDOC ---
PULMONARY PROGRESS NOTES Vitals Vital Signs Date Time Temp Pulse Resp B/P (MAP) Pulse Ox O2 Delivery O2 Flow Rate FiO2 05/04/18 15:51 97 BiPAP/CPAP 05/04/18 15:07 98.3 109 20 130/70 (90) 98.3 05/04/18 08:03 4.0 General: Alert Lungs: Wheezing Cardiovascular: S1, S2 Abdomen: Soft, Non-tender Extremities: No Edema Labs Laboratory Tests Test 05/03/18 16:40 05/03/18 17:13 05/03/18 17:15 05/03/18 19:12 White Blood Count 15.3 x10^3/uL (4.0-11.0) Red Blood Count 4.44 x10^6/uL (4.30-5.70) Hemoglobin 13.4 g/dL (13.0-17.5) Hematocrit 40.9 % (39.0-53.0) Mean Corpuscular Volume 92 fL (79-100) Mean Corpuscular Hemoglobin 30 pg (25-35) Mean Corpuscular Hemoglobin Concent 33 g/dL (31-37) Red Cell Distribution Width 13.7 % (11.5-14.5) Platelet Count 225 x10^3/uL (140-400) Neutrophils (%) (Auto) 89 % (31-73) Lymphocytes (%) (Auto) 5 % (24-48) Monocytes (%) (Auto) 5 % (0-9) Eosinophils (%) (Auto) 1 % (0-3) Basophils (%) (Auto) 0 % (0-3) Neutrophils # (Auto) 13.7 x10^3uL (1.8-7.7) Lymphocytes # (Auto) 0.7 x10^3/uL (1.0-4.8) Monocytes # (Auto) 0.8 x10^3/uL (0.0-1.1) Eosinophils # (Auto) 0.1 x10^3/uL (0.0-0.7) Basophils # (Auto) 0.0 x10^3/uL (0.0-0.2) Segmented Neutrophils % 76 % (35-66) Band Neutrophils % 9 % (0-9) Lymphocytes % 11 % (24-48) Monocytes % 4 % (0-10) Platelet Estimate Adequate (ADEQUATE) Influenza Type A Antigen Negative (NEGATIVE) Influenza Type B Antigen Negative (NEGATIVE) Sodium Level 139 mmol/L (136-145) Potassium Level 4.3 mmol/L (3.5-5.1) Chloride Level 93 mmol/L (98-107) Carbon Dioxide Level 42 mmol/L (21-32) Anion Gap 4 (6-14) Blood Urea Nitrogen 15 mg/dL (8-26) Creatinine 0.5 mg/dL (0.7-1.3) Estimated GFR (Cockcroft-Gault) 165.4 BUN/Creatinine Ratio 30 (6-20) Glucose Level 163 mg/dL (70-99) Lactic Acid Level 1.3 mmol/L (0.4-2.0) Calcium Level 9.1 mg/dL (8.5-10.1) Magnesium Level 2.0 mg/dL (1.8-2.4) Total Bilirubin 0.5 mg/dL (0.2-1.0) Aspartate Amino Transf (AST/SGOT) 16 U/L (15-37) Alanine Aminotransferase (ALT/SGPT) 13 U/L (16-63) Alkaline Phosphatase 145 U/L (46-116) Troponin I Quantitative < 0.017 ng/mL (0.000-0.055) Total Protein 6.8 g/dL (6.4-8.2) Albumin 3.3 g/dL (3.4-5.0) Albumin/Globulin Ratio 0.9 (1.0-1.7) O2 Saturation 88 % (92-99) Arterial Blood pH 7.32 (7.35-7.45) Arterial Blood pCO2 at Patient Temp 79 mmHg (35-46) Arterial Blood pO2 at Patient Temp 56 mmHg (65-108) Arterial Blood HCO3 39 mmol/L (21-28) Arterial Blood Base Excess 10 mmol/L (-3-3) Oxyhemoglobin 85.1 % Methemoglobin 0.3 % (0.0-1.9) Carbon Monoxide, Quantitative 2.8 % (0.0-1.9) FiO2 36 Test 05/04/18 08:45 05/04/18 08:55 Sodium Level 139 mmol/L (136-145) Potassium Level 4.3 mmol/L (3.5-5.1) Chloride Level 95 mmol/L (98-107) Carbon Dioxide Level 42 mmol/L (21-32) Anion Gap 2 (6-14) Blood Urea Nitrogen 17 mg/dL (8-26) Creatinine 0.6 mg/dL (0.7-1.3) Estimated GFR (Cockcroft-Gault) 134.0 Glucose Level 197 mg/dL (70-99) Calcium Level 9.3 mg/dL (8.5-10.1) White Blood Count 16.1 x10^3/uL (4.0-11.0) Red Blood Count 4.32 x10^6/uL (4.30-5.70) Hemoglobin 13.0 g/dL (13.0-17.5) Hematocrit 40.3 % (39.0-53.0) Mean Corpuscular Volume 93 fL (79-100) Mean Corpuscular Hemoglobin 30 pg (25-35) Mean Corpuscular Hemoglobin Concent 32 g/dL (31-37) Red Cell Distribution Width 14.0 % (11.5-14.5) Platelet Count 292 x10^3/uL (140-400) Neutrophils (%) (Auto) 94 % (31-73) Lymphocytes (%) (Auto) 3 % (24-48) Monocytes (%) (Auto) 3 % (0-9) Eosinophils (%) (Auto) 0 % (0-3) Basophils (%) (Auto) 0 % (0-3) Neutrophils # (Auto) 15.1 x10^3uL (1.8-7.7) Lymphocytes # (Auto) 0.6 x10^3/uL (1.0-4.8) Monocytes # (Auto) 0.4 x10^3/uL (0.0-1.1) Eosinophils # (Auto) 0.0 x10^3/uL (0.0-0.7) Basophils # (Auto) 0.0 x10^3/uL (0.0-0.2) Laboratory Tests Test 05/03/18 17:13 05/03/18 17:15 05/03/18 19:12 05/04/18 08:45 Influenza Type A Antigen Negative (NEGATIVE) Influenza Type B Antigen Negative (NEGATIVE) Sodium Level 139 mmol/L (136-145) 139 mmol/L (136-145) Potassium Level 4.3 mmol/L (3.5-5.1) 4.3 mmol/L (3.5-5.1) Chloride Level 93 mmol/L (98-107) 95 mmol/L (98-107) Carbon Dioxide Level 42 mmol/L (21-32) 42 mmol/L (21-32) Anion Gap 4 (6-14) 2 (6-14) Blood Urea Nitrogen 15 mg/dL (8-26) 17 mg/dL (8-26) Creatinine 0.5 mg/dL (0.7-1.3) 0.6 mg/dL (0.7-1.3) Estimated GFR (Cockcroft-Gault) 165.4 134.0 BUN/Creatinine Ratio 30 (6-20) Glucose Level 163 mg/dL (70-99) 197 mg/dL (70-99) Lactic Acid Level 1.3 mmol/L (0.4-2.0) Calcium Level 9.1 mg/dL (8.5-10.1) 9.3 mg/dL (8.5-10.1) Magnesium Level 2.0 mg/dL (1.8-2.4) Total Bilirubin 0.5 mg/dL (0.2-1.0) Aspartate Amino Transf (AST/SGOT) 16 U/L (15-37) Alanine Aminotransferase (ALT/SGPT) 13 U/L (16-63) Alkaline Phosphatase 145 U/L (46-116) Troponin I Quantitative < 0.017 ng/mL (0.000-0.055) Total Protein 6.8 g/dL (6.4-8.2) Albumin 3.3 g/dL (3.4-5.0) Albumin/Globulin Ratio 0.9 (1.0-1.7) O2 Saturation 88 % (92-99) Arterial Blood pH 7.32 (7.35-7.45) Arterial Blood pCO2 at Patient Temp 79 mmHg (35-46) Arterial Blood pO2 at Patient Temp 56 mmHg (65-108) Arterial Blood HCO3 39 mmol/L (21-28) Arterial Blood Base Excess 10 mmol/L (-3-3) Oxyhemoglobin 85.1 % Methemoglobin 0.3 % (0.0-1.9) Carbon Monoxide, Quantitative 2.8 % (0.0-1.9) FiO2 36 Test 05/04/18 08:55 White Blood Count 16.1 x10^3/uL (4.0-11.0) Red Blood Count 4.32 x10^6/uL (4.30-5.70) Hemoglobin 13.0 g/dL (13.0-17.5) Hematocrit 40.3 % (39.0-53.0) Mean Corpuscular Volume 93 fL (79-100) Mean Corpuscular Hemoglobin 30 pg (25-35) Mean Corpuscular Hemoglobin Concent 32 g/dL (31-37) Red Cell Distribution Width 14.0 % (11.5-14.5) Platelet Count 292 x10^3/uL (140-400) Neutrophils (%) (Auto) 94 % (31-73) Lymphocytes (%) (Auto) 3 % (24-48) Monocytes (%) (Auto) 3 % (0-9) Eosinophils (%) (Auto) 0 % (0-3) Basophils (%) (Auto) 0 % (0-3) Neutrophils # (Auto) 15.1 x10^3uL (1.8-7.7) Lymphocytes # (Auto) 0.6 x10^3/uL (1.0-4.8) Monocytes # (Auto) 0.4 x10^3/uL (0.0-1.1) Eosinophils # (Auto) 0.0 x10^3/uL (0.0-0.7) Basophils # (Auto) 0.0 x10^3/uL (0.0-0.2) Medications Active Scripts Medications Dose Route/Sig Max Daily Dose Days Date Category Dose Instructions Doxycycline Hyclate 100 Mg Tablet 100 Mg PO BID 04/16/16 Rx Prednisone (Prednisone) 10 Mg Tablet 10 Mg PO UD 04/16/16 Rx Take 4 tablets by mouth daily for 5 days, then take 3 tablets by mouth daily for 5 days, then resume home dose of prednisone Protonix (Pantoprazole Sodium) 40 Mg Tablet.dr 40 Mg PO DAILY 11/18/15 Reported Potassium Chloride 10 Meq Capsule.er 10 Meq PO DAILY 11/18/15 Reported Lasix (Furosemide) 20 Mg Tablet 1 Tab PO DAILY 11/18/15 Reported Prednisone (Prednisone) 10 Mg Tablet 10 Mg PO UD 10/15/15 Rx Take 4 tablets by mouth daily for 3 days, then take 3 tablets by mouth daily for 3 days, then take 2 tablet by mouth daily for 3 days, then take 1 tablet by mouth daily x 3 days, then stop. Albuterol Sulfate Neb Soln (Albuterol Sulfate) 2.5 Mg/3 Ml Vial.neb 1 Vial NEB PRN Q4HRS 10/11/15 Reported Advair 500-50 Diskus (Fluticasone/Salmeterol) 1 Each Disk.w.dev 1 Puff IH DAILY 10/11/15 Reported Spiriva (Tiotropium Prole) 18 Mcg Cap.w.dev 1 Cap IH DAILY 10/11/15 Reported Flomax (Tamsulosin Hcl) 0.4 Mg Cap.er.24h 1 Cap PO DAILY 10/11/15 Reported Metoprolol Tartrate 25 Mg Tablet 12.5 Mg PO BID 10/11/15 Reported Impression . A/C RESP FAILURE SEE ORDERS THANKS MARISABEL PULIDO MD May 04, 2018 16:54
[2018-05-04] MEDS: FLUTICASONE 50MCG/NASAL SPRAY 16GM BOTTLE. NS SCH (16:57)
[2018-05-04 19:00] VITALS: BP 125/72
[2018-05-04] MEDS: guaiFENesin DM 200MG/20MG 10 ML SYRUP PO PRN (21:10)
[2018-05-04 22:57] VITALS: BP 106/58
[2018-05-04 23:57] LABS: BASE EXCESS ABG 14 mmol/L (-3-3); HCO3 ABG 42 mmol/L (21-28); PCO2 ABG 70 mmHg (35-46); PO2 ABG 57 mmHg (65-108); SAT O2 ABG 91 % (92-99)
[2018-05-05 03:00] VITALS: BP 128/73
[2018-05-05 06:15] LABS: BASO % 0 % (0-3); EOS % 0 % (0-3); HEMATOCRIT 36.4 % (39.0-53.0); HEMOGLOBIN 11.6 g/dL (13.0-17.5); LYMPH # 0.4 x10^3/uL (1.0-4.8); LYMPH % 3 % (24-48); MEAN CORPUSCULAR HEMOGLOBIN 29 pg (25-35); MEAN CORPUSCULAR HGB CONC 32 g/dL (31-37); MEAN CORPUSCULAR VOLUME 93 fL (79-100); MONO # 0.3 x10^3/uL (0.0-1.1); MONO % 2 % (0-9); NEUT # 15.6 x10^3uL (1.8-7.7); NEUT % 96 % (31-73); PLATELET COUNT 285 x10^3/uL (140-400); RED BLOOD COUNT 3.93 x10^6/uL (4.30-5.70); RED CELL DISTRIBUTION WIDTH 13.9 % (11.5-14.5); WHITE BLOOD COUNT 16.3 x10^3/uL (4.0-11.0)
[2018-05-05 06:42] LABS: CALCIUM 8.7 mg/dL (8.5-10.1); CREATININE 0.5 mg/dL (0.7-1.3); GFR 165.4; POTASSIUM 4.5 mmol/L (3.5-5.1)
[2018-05-05 07:00] VITALS: BP 135/70
[2018-05-05] MEDS: IPRATRPIUM/ALBUTEROL 0.5/2.5MG 3 ML NEBU. NEB SCH ×4 (07:28→19:30)
[2018-05-05] MEDS: BUDESONIDE 0.5 MG/2 ML NEBU. NEB SCH ×2 (07:28→19:30)
--- NOTE | 2018-05-05 07:58 | CONS ---
DATE OF CONSULTATION: 05/04/2018 ATTENDING PHYSICIAN: Dr. Montgomery.. REASON FOR CONSULTATION: The patient is seen in pulmonary consultation at the request of Dr. Montgomery for increasing shortness of air. HISTORY OF PRESENT ILLNESS: The patient is a 67-year-old with chronic respiratory failure, pulmonary fibrosis, tobacco dependent, presented with increasing shortness of breath over the last 2-3 days, coughing up some green sputum. No hemoptysis. He normally wears 2 liters of oxygen at home. He had no fever, chills, nausea, vomiting. He does have a history of bilateral pulmonary infiltrates compatible with fibrosis. His x-ray now slightly worse in comparison to the previous film. I was asked to see him in consultation. PAST MEDICAL HISTORY: 1. Chronic respiratory failure secondary to COPD and fibrosis. 2. Tobacco dependence. 3. Previous pneumonia. 4. BPH. PAST SURGICAL HISTORY: Left rotator cuff repair. SOCIAL HISTORY: He smokes. He is currently not utilizing tobacco. REVIEW OF SYSTEMS: CONSTITUTIONAL: No fever or chills. EYES: No change in visual acuity. HENT: No nasal congestion or sore throat. PULMONARY: As indicated above. CARDIOVASCULAR: No chest pain. No pressure. GASTROINTESTINAL: No nausea, vomiting, diarrhea. GENITOURINARY: No dysuria or frequency. MUSCULOSKELETAL: No localized muscle aches or joint pains. SKIN: No new skin rashes. NEUROLOGIC: No headaches, diplopia or blurred vision. PHYSICAL EXAMINATION: GENERAL: The patient was in no overt significant respiratory distress at this point, he was able to complete full sentences in comparison to when he first came in. EYES: The sclerae were nonicteric. NECK: Jugular venous distention was not elevated. No lymphadenopathy. CHEST: Full expansion. LUNGS: He has crackles, poor airway flow, no wheezes. CARDIOVASCULAR: Regular rate and rhythm with S1, S2, no S3. ABDOMEN: Soft, nontender, nondistended. EXTREMITIES: No clubbing, cyanosis or edema. NEUROLOGIC: The patient was awake, alert, following commands. A detailed neuro exam was not performed. LABORATORY DATA: Reviewed. White count was elevated. Electrolytes were noted. Arterial blood gas; pH of 7.32, PaCO2 of 79, pO2 of 56. Serology for influenza was negative. IMPRESSION: 1. Acute on chronic hypoxemic hypercapnic respiratory failure. 2. Pneumonia, suspect gram-negative, gram-positive. 3. Pulmonary fibrosis. 4. Tobacco dependence. 5. Gastroesophageal reflux. PLAN: 1. Continue current medical regimen. 2. The patient instructed on the importance of discontinuing tobacco use. 3. BiPAP. 4. DVT and GI prophylaxis. I do appreciate the privilege in sharing in the patient's care. MARISABEL PULIDO MD DR: ROBERT/joshua JOB#: [id number] / [id number]
[2018-05-05] MEDS: FLUTICASONE 50MCG/NASAL SPRAY 16GM BOTTLE. NS SCH (10:00)
[2018-05-05] MEDS: guaiFENesin DM 200MG/20MG 10 ML SYRUP PO PRN (10:00)
[2018-05-05] MEDS: PANTOPRAZOLE 40 MG TABLET.DR. PO SCH (10:01)
[2018-05-05] MEDS: methylPREDNISolone SOD SUCC PF 40 MG/ML VIAL. IV SCH ×2 (10:01→19:57)
[2018-05-05] MEDS: POTASSIUM CHLORIDE 10 MEQ TABLET.ER. PO SCH (10:02)
[2018-05-05] MEDS: METOPROLOL TART IMMED RELEASE 25 MG TABLET. PO SCH ×2 (10:02→19:57)
[2018-05-05] MEDS: TAMSULOSIN 0.4 MG CAP.ER.24H. PO SCH (10:02)
[2018-05-05] MEDS: cefTRIAXone IV Push 1 GM VIAL. IVP SCH (10:03)
[2018-05-05] MEDS: DOXYCYCLINE HYCLATE 100 MG in IV DEXTROSE 5% 100ML 100 ML IV SCH ×2 (10:09→19:57)
--- NOTE | 2018-05-05 10:11 | PDOC ---
PULMONARY PROGRESS NOTES Subjective Patient off BiPAP currently on 3L of oxygen, feels better Vitals Vital Signs Date Time Temp Pulse Resp B/P (MAP) Pulse Ox O2 Delivery O2 Flow Rate FiO2 05/05/18 10:02 94 135/70 05/05/18 07:29 96 Nasal Cannula 4.0 05/05/18 07:00 97.7 18 97.7 ROS: No Nausea, No Chest Pain, No Abdominal Pain, No Increase Cough General: Alert Lungs: Wheezing, Crackles Cardiovascular: S1, S2 Abdomen: Soft, Non-tender Neuro Exam: Alert Extremities: No Edema Skin: Warm Labs Laboratory Tests Test 05/03/18 16:40 05/03/18 17:13 05/03/18 17:15 05/03/18 19:12 White Blood Count 15.3 x10^3/uL (4.0-11.0) Red Blood Count 4.44 x10^6/uL (4.30-5.70) Hemoglobin 13.4 g/dL (13.0-17.5) Hematocrit 40.9 % (39.0-53.0) Mean Corpuscular Volume 92 fL (79-100) Mean Corpuscular Hemoglobin 30 pg (25-35) Mean Corpuscular Hemoglobin Concent 33 g/dL (31-37) Red Cell Distribution Width 13.7 % (11.5-14.5) Platelet Count 225 x10^3/uL (140-400) Neutrophils (%) (Auto) 89 % (31-73) Lymphocytes (%) (Auto) 5 % (24-48) Monocytes (%) (Auto) 5 % (0-9) Eosinophils (%) (Auto) 1 % (0-3) Basophils (%) (Auto) 0 % (0-3) Neutrophils # (Auto) 13.7 x10^3uL (1.8-7.7) Lymphocytes # (Auto) 0.7 x10^3/uL (1.0-4.8) Monocytes # (Auto) 0.8 x10^3/uL (0.0-1.1) Eosinophils # (Auto) 0.1 x10^3/uL (0.0-0.7) Basophils # (Auto) 0.0 x10^3/uL (0.0-0.2) Segmented Neutrophils % 76 % (35-66) Band Neutrophils % 9 % (0-9) Lymphocytes % 11 % (24-48) Monocytes % 4 % (0-10) Platelet Estimate Adequate (ADEQUATE) Influenza Type A Antigen Negative (NEGATIVE) Influenza Type B Antigen Negative (NEGATIVE) Sodium Level 139 mmol/L (136-145) Potassium Level 4.3 mmol/L (3.5-5.1) Chloride Level 93 mmol/L (98-107) Carbon Dioxide Level 42 mmol/L (21-32) Anion Gap 4 (6-14) Blood Urea Nitrogen 15 mg/dL (8-26) Creatinine 0.5 mg/dL (0.7-1.3) Estimated GFR (Cockcroft-Gault) 165.4 BUN/Creatinine Ratio 30 (6-20) Glucose Level 163 mg/dL (70-99) Lactic Acid Level 1.3 mmol/L (0.4-2.0) Calcium Level 9.1 mg/dL (8.5-10.1) Magnesium Level 2.0 mg/dL (1.8-2.4) Total Bilirubin 0.5 mg/dL (0.2-1.0) Aspartate Amino Transf (AST/SGOT) 16 U/L (15-37) Alanine Aminotransferase (ALT/SGPT) 13 U/L (16-63) Alkaline Phosphatase 145 U/L (46-116) Troponin I Quantitative < 0.017 ng/mL (0.000-0.055) Total Protein 6.8 g/dL (6.4-8.2) Albumin 3.3 g/dL (3.4-5.0) Albumin/Globulin Ratio 0.9 (1.0-1.7) O2 Saturation 88 % (92-99) Arterial Blood pH 7.32 (7.35-7.45) Arterial Blood pCO2 at Patient Temp 79 mmHg (35-46) Arterial Blood pO2 at Patient Temp 56 mmHg (65-108) Arterial Blood HCO3 39 mmol/L (21-28) Arterial Blood Base Excess 10 mmol/L (-3-3) Oxyhemoglobin 85.1 % Methemoglobin 0.3 % (0.0-1.9) Carbon Monoxide, Quantitative 2.8 % (0.0-1.9) FiO2 36 Test 05/04/18 08:45 05/04/18 08:55 05/04/18 17:38 05/05/18 05:30 Sodium Level 139 mmol/L (136-145) 141 mmol/L (136-145) Potassium Level 4.3 mmol/L (3.5-5.1) 4.5 mmol/L (3.5-5.1) Chloride Level 95 mmol/L (98-107) 98 mmol/L (98-107) Carbon Dioxide Level 42 mmol/L (21-32) 41 mmol/L (21-32) Anion Gap 2 (6-14) 2 (6-14) Blood Urea Nitrogen 17 mg/dL (8-26) 14 mg/dL (8-26) Creatinine 0.6 mg/dL (0.7-1.3) 0.5 mg/dL (0.7-1.3) Estimated GFR (Cockcroft-Gault) 134.0 165.4 Glucose Level 197 mg/dL (70-99) 200 mg/dL (70-99) Calcium Level 9.3 mg/dL (8.5-10.1) 8.7 mg/dL (8.5-10.1) White Blood Count 16.1 x10^3/uL (4.0-11.0) 16.3 x10^3/uL (4.0-11.0) Red Blood Count 4.32 x10^6/uL (4.30-5.70) 3.93 x10^6/uL (4.30-5.70) Hemoglobin 13.0 g/dL (13.0-17.5) 11.6 g/dL (13.0-17.5) Hematocrit 40.3 % (39.0-53.0) 36.4 % (39.0-53.0) Mean Corpuscular Volume 93 fL (79-100) 93 fL (79-100) Mean Corpuscular Hemoglobin 30 pg (25-35) 29 pg (25-35) Mean Corpuscular Hemoglobin Concent 32 g/dL (31-37) 32 g/dL (31-37) Red Cell Distribution Width 14.0 % (11.5-14.5) 13.9 % (11.5-14.5) Platelet Count 292 x10^3/uL (140-400) 285 x10^3/uL (140-400) Neutrophils (%) (Auto) 94 % (31-73) 96 % (31-73) Lymphocytes (%) (Auto) 3 % (24-48) 3 % (24-48) Monocytes (%) (Auto) 3 % (0-9) 2 % (0-9) Eosinophils (%) (Auto) 0 % (0-3) 0 % (0-3) Basophils (%) (Auto) 0 % (0-3) 0 % (0-3) Neutrophils # (Auto) 15.1 x10^3uL (1.8-7.7) 15.6 x10^3uL (1.8-7.7) Lymphocytes # (Auto) 0.6 x10^3/uL (1.0-4.8) 0.4 x10^3/uL (1.0-4.8) Monocytes # (Auto) 0.4 x10^3/uL (0.0-1.1) 0.3 x10^3/uL (0.0-1.1) Eosinophils # (Auto) 0.0 x10^3/uL (0.0-0.7) 0.0 x10^3/uL (0.0-0.7) Basophils # (Auto) 0.0 x10^3/uL (0.0-0.2) 0.0 x10^3/uL (0.0-0.2) O2 Saturation 91 % (92-99) Arterial Blood pH 7.39 (7.35-7.45) Arterial Blood pCO2 at Patient Temp 70 mmHg (35-46) Arterial Blood pO2 at Patient Temp 57 mmHg (65-108) Arterial Blood HCO3 42 mmol/L (21-28) Arterial Blood Base Excess 14 mmol/L (-3-3) Laboratory Tests Test 05/04/18 17:38 05/05/18 05:30 O2 Saturation 91 % (92-99) Arterial Blood pH 7.39 (7.35-7.45) Arterial Blood pCO2 at Patient Temp 70 mmHg (35-46) Arterial Blood pO2 at Patient Temp 57 mmHg (65-108) Arterial Blood HCO3 42 mmol/L (21-28) Arterial Blood Base Excess 14 mmol/L (-3-3) White Blood Count 16.3 x10^3/uL (4.0-11.0) Red Blood Count 3.93 x10^6/uL (4.30-5.70) Hemoglobin 11.6 g/dL (13.0-17.5) Hematocrit 36.4 % (39.0-53.0) Mean Corpuscular Volume 93 fL (79-100) Mean Corpuscular Hemoglobin 29 pg (25-35) Mean Corpuscular Hemoglobin Concent 32 g/dL (31-37) Red Cell Distribution Width 13.9 % (11.5-14.5) Platelet Count 285 x10^3/uL (140-400) Neutrophils (%) (Auto) 96 % (31-73) Lymphocytes (%) (Auto) 3 % (24-48) Monocytes (%) (Auto) 2 % (0-9) Eosinophils (%) (Auto) 0 % (0-3) Basophils (%) (Auto) 0 % (0-3) Neutrophils # (Auto) 15.6 x10^3uL (1.8-7.7) Lymphocytes # (Auto) 0.4 x10^3/uL (1.0-4.8) Monocytes # (Auto) 0.3 x10^3/uL (0.0-1.1) Eosinophils # (Auto) 0.0 x10^3/uL (0.0-0.7) Basophils # (Auto) 0.0 x10^3/uL (0.0-0.2) Sodium Level 141 mmol/L (136-145) Potassium Level 4.5 mmol/L (3.5-5.1) Chloride Level 98 mmol/L (98-107) Carbon Dioxide Level 41 mmol/L (21-32) Anion Gap 2 (6-14) Blood Urea Nitrogen 14 mg/dL (8-26) Creatinine 0.5 mg/dL (0.7-1.3) Estimated GFR (Cockcroft-Gault) 165.4 Glucose Level 200 mg/dL (70-99) Calcium Level 8.7 mg/dL (8.5-10.1) Medications Active Scripts Medications Dose Route/Sig Max Daily Dose Days Date Category Dose Instructions Doxycycline Hyclate 100 Mg Tablet 100 Mg PO BID 04/16/16 Rx Prednisone (Prednisone) 10 Mg Tablet 10 Mg PO UD 04/16/16 Rx Take 4 tablets by mouth daily for 5 days, then take 3 tablets by mouth daily for 5 days, then resume home dose of prednisone Protonix (Pantoprazole Sodium) 40 Mg Tablet.dr 40 Mg PO DAILY 11/18/15 Reported Potassium Chloride 10 Meq Capsule.er 10 Meq PO DAILY 11/18/15 Reported Lasix (Furosemide) 20 Mg Tablet 1 Tab PO DAILY 11/18/15 Reported Prednisone (Prednisone) 10 Mg Tablet 10 Mg PO UD 10/15/15 Rx Take 4 tablets by mouth daily for 3 days, then take 3 tablets by mouth daily for 3 days, then take 2 tablet by mouth daily for 3 days, then take 1 tablet by mouth daily x 3 days, then stop. Albuterol Sulfate Neb Soln (Albuterol Sulfate) 2.5 Mg/3 Ml Vial.neb 1 Vial NEB PRN Q4HRS 10/11/15 Reported Advair 500-50 Diskus (Fluticasone/Salmeterol) 1 Each Disk.w.dev 1 Puff IH DAILY 10/11/15 Reported Spiriva (Tiotropium [place]) 18 Mcg Cap.w.dev 1 Cap IH DAILY 10/11/15 Reported Flomax (Tamsulosin Hcl) 0.4 Mg Cap.er.24h 1 Cap PO DAILY 10/11/15 Reported Metoprolol Tartrate 25 Mg Tablet 12.5 Mg PO BID 10/11/15 Reported Impression . IMPRESSION: 1. Acute on chronic hypoxemic hypercapnic respiratory failure. 2. Pneumonia, suspect gram-negative, gram-positive. 3. Pulmonary fibrosis. 4. Tobacco dependence. 5. Gastroesophageal reflux. Plan . continue PRN BiPAP, antibiotics, steroids, oxygen supplementation ABG noted improved MARISABEL PULIDO MD May 05, 2018 10:11
[2018-05-05 10:49] VITALS: BP 123/71
[2018-05-05] MEDS: NICOTINE 21MG PATCH. TD SCH (12:38)
[2018-05-05] MEDS: LACTOBACILLUS RHAMNOSUS GG 1 CAPSULE. PO SCH ×2 (14:19→19:56)
[2018-05-05 15:00] VITALS: BP 129/75
--- NOTE | 2018-05-05 16:02 | NUR ---
SS following up with discharge planning. PT evaluated pt and recommended home with home healthcare. [facility] videotape sales representative, Rossy, met with pt to discuss home healthcare. Pt agreeable to home healthcare with [facility], ; fax [phone], at discharge. SS will await discharge orders for home healthcare and will proceed accordingly.
--- NOTE | 2018-05-05 17:15 | PDOC ---
PROGRESS NOTES Chief Complaint Chief Complaint [id number] respiratory failure - off BIPAP currently. Steroids, nebs, treat pneumonia. Community acquired pneumonia - rocephin + doxy Sepsis - tachy with RR and leukocytosis, this is likely from gram positive or high risk of gram negative/atypical pneumonia with history of COPD. Given IVF. Antibiotics given Acute exacerbation of chronic obstructive pulmonary disease - as above, nebs, steroids Tobacco dependence - counseled. Nicotine patch Murmur - systolic, awaiting TTE. Likely from . Consulted cardiology per pt request HTN: controlled HLD - statin History of Present Illness History of Present Illness Patient with no acue events reported overnight, patient denies fever chills or new complaints. Reassurance provided. Vitals Vitals Vital Signs Date Time Temp Pulse Resp B/P (MAP) Pulse Ox O2 Delivery O2 Flow Rate FiO2 05/05/18 15:06 Nasal Cannula 4.0 05/05/18 15:00 98.2 96 18 129/75 (93) 95 98.2 Physical Exam General: Alert, Oriented X3, Cooperative, No acute distress Heart: Regular rate (sinus tach), Normal S1, Normal S2, Other (2/6 systolic murmur otherwise no significant murmur) Lungs: Wheezing, Crackles Abdomen: Normal bowel sounds, Soft, No hepatosplenomegaly, No masses Extremities: No clubbing, No cyanosis, No edema, Normal pulses, No tenderness/ swelling Skin: No rashes, No breakdown, No significant lesion Labs LABS Laboratory Tests Test 05/04/18 17:38 05/05/18 05:30 O2 Saturation 91 % (92-99) Arterial Blood pH 7.39 (7.35-7.45) Arterial Blood pCO2 at Patient Temp 70 mmHg (35-46) Arterial Blood pO2 at Patient Temp 57 mmHg (65-108) Arterial Blood HCO3 42 mmol/L (21-28) Arterial Blood Base Excess 14 mmol/L (-3-3) White Blood Count 16.3 x10^3/uL (4.0-11.0) Red Blood Count 3.93 x10^6/uL (4.30-5.70) Hemoglobin 11.6 g/dL (13.0-17.5) Hematocrit 36.4 % (39.0-53.0) Mean Corpuscular Volume 93 fL (79-100) Mean Corpuscular Hemoglobin 29 pg (25-35) Mean Corpuscular Hemoglobin Concent 32 g/dL (31-37) Red Cell Distribution Width 13.9 % (11.5-14.5) Platelet Count 285 x10^3/uL (140-400) Neutrophils (%) (Auto) 96 % (31-73) Lymphocytes (%) (Auto) 3 % (24-48) Monocytes (%) (Auto) 2 % (0-9) Eosinophils (%) (Auto) 0 % (0-3) Basophils (%) (Auto) 0 % (0-3) Neutrophils # (Auto) 15.6 x10^3uL (1.8-7.7) Lymphocytes # (Auto) 0.4 x10^3/uL (1.0-4.8) Monocytes # (Auto) 0.3 x10^3/uL (0.0-1.1) Eosinophils # (Auto) 0.0 x10^3/uL (0.0-0.7) Basophils # (Auto) 0.0 x10^3/uL (0.0-0.2) Sodium Level 141 mmol/L (136-145) Potassium Level 4.5 mmol/L (3.5-5.1) Chloride Level 98 mmol/L (98-107) Carbon Dioxide Level 41 mmol/L (21-32) Anion Gap 2 (6-14) Blood Urea Nitrogen 14 mg/dL (8-26) Creatinine 0.5 mg/dL (0.7-1.3) Estimated GFR (Cockcroft-Gault) 165.4 Glucose Level 200 mg/dL (70-99) Calcium Level 8.7 mg/dL (8.5-10.1) Assessment and Plan Assessmemt and Plan Problems Medical Problems: (1) COPD exacerbation Status: Acute Comment Review of Relevant I have reviewed the following items zaire (where applicable) has been applied. Labs Laboratory Tests Test 05/03/18 17:15 05/03/18 19:12 05/04/18 08:45 05/04/18 08:55 Sodium Level 139 mmol/L (136-145) 139 mmol/L (136-145) Potassium Level 4.3 mmol/L (3.5-5.1) 4.3 mmol/L (3.5-5.1) Chloride Level 93 mmol/L (98-107) 95 mmol/L (98-107) Carbon Dioxide Level 42 mmol/L (21-32) 42 mmol/L (21-32) Anion Gap 4 (6-14) 2 (6-14) Blood Urea Nitrogen 15 mg/dL (8-26) 17 mg/dL (8-26) Creatinine 0.5 mg/dL (0.7-1.3) 0.6 mg/dL (0.7-1.3) Estimated GFR (Cockcroft-Gault) 165.4 134.0 BUN/Creatinine Ratio 30 (6-20) Glucose Level 163 mg/dL (70-99) 197 mg/dL (70-99) Lactic Acid Level 1.3 mmol/L (0.4-2.0) Calcium Level 9.1 mg/dL (8.5-10.1) 9.3 mg/dL (8.5-10.1) Magnesium Level 2.0 mg/dL (1.8-2.4) Total Bilirubin 0.5 mg/dL (0.2-1.0) Aspartate Amino Transf (AST/SGOT) 16 U/L (15-37) Alanine Aminotransferase (ALT/SGPT) 13 U/L (16-63) Alkaline Phosphatase 145 U/L (46-116) Troponin I Quantitative < 0.017 ng/mL (0.000-0.055) Total Protein 6.8 g/dL (6.4-8.2) Albumin 3.3 g/dL (3.4-5.0) Albumin/Globulin Ratio 0.9 (1.0-1.7) O2 Saturation 88 % (92-99) Arterial Blood pH 7.32 (7.35-7.45) Arterial Blood pCO2 at Patient Temp 79 mmHg (35-46) Arterial Blood pO2 at Patient Temp 56 mmHg (65-108) Arterial Blood HCO3 39 mmol/L (21-28) Arterial Blood Base Excess 10 mmol/L (-3-3) Oxyhemoglobin 85.1 % Methemoglobin 0.3 % (0.0-1.9) Carbon Monoxide, Quantitative 2.8 % (0.0-1.9) FiO2 36 White Blood Count 16.1 x10^3/uL (4.0-11.0) Red Blood Count 4.32 x10^6/uL (4.30-5.70) Hemoglobin 13.0 g/dL (13.0-17.5) Hematocrit 40.3 % (39.0-53.0) Mean Corpuscular Volume 93 fL (79-100) Mean Corpuscular Hemoglobin 30 pg (25-35) Mean Corpuscular Hemoglobin Concent 32 g/dL (31-37) Red Cell Distribution Width 14.0 % (11.5-14.5) Platelet Count 292 x10^3/uL (140-400) Neutrophils (%) (Auto) 94 % (31-73) Lymphocytes (%) (Auto) 3 % (24-48) Monocytes (%) (Auto) 3 % (0-9) Eosinophils (%) (Auto) 0 % (0-3) Basophils (%) (Auto) 0 % (0-3) Neutrophils # (Auto) 15.1 x10^3uL (1.8-7.7) Lymphocytes # (Auto) 0.6 x10^3/uL (1.0-4.8) Monocytes # (Auto) 0.4 x10^3/uL (0.0-1.1) Eosinophils # (Auto) 0.0 x10^3/uL (0.0-0.7) Basophils # (Auto) 0.0 x10^3/uL (0.0-0.2) Test 05/04/18 17:38 05/05/18 05:30 O2 Saturation 91 % (92-99) Arterial Blood pH 7.39 (7.35-7.45) Arterial Blood pCO2 at Patient Temp 70 mmHg (35-46) Arterial Blood pO2 at Patient Temp 57 mmHg (65-108) Arterial Blood HCO3 42 mmol/L (21-28) Arterial Blood Base Excess 14 mmol/L (-3-3) White Blood Count 16.3 x10^3/uL (4.0-11.0) Red Blood Count 3.93 x10^6/uL (4.30-5.70) Hemoglobin 11.6 g/dL (13.0-17.5) Hematocrit 36.4 % (39.0-53.0) Mean Corpuscular Volume 93 fL (79-100) Mean Corpuscular Hemoglobin 29 pg (25-35) Mean Corpuscular Hemoglobin Concent 32 g/dL (31-37) Red Cell Distribution Width 13.9 % (11.5-14.5) Platelet Count 285 x10^3/uL (140-400) Neutrophils (%) (Auto) 96 % (31-73) Lymphocytes (%) (Auto) 3 % (24-48) Monocytes (%) (Auto) 2 % (0-9) Eosinophils (%) (Auto) 0 % (0-3) Basophils (%) (Auto) 0 % (0-3) Neutrophils # (Auto) 15.6 x10^3uL (1.8-7.7) Lymphocytes # (Auto) 0.4 x10^3/uL (1.0-4.8) Monocytes # (Auto) 0.3 x10^3/uL (0.0-1.1) Eosinophils # (Auto) 0.0 x10^3/uL (0.0-0.7) Basophils # (Auto) 0.0 x10^3/uL (0.0-0.2) Sodium Level 141 mmol/L (136-145) Potassium Level 4.5 mmol/L (3.5-5.1) Chloride Level 98 mmol/L (98-107) Carbon Dioxide Level 41 mmol/L (21-32) Anion Gap 2 (6-14) Blood Urea Nitrogen 14 mg/dL (8-26) Creatinine 0.5 mg/dL (0.7-1.3) Estimated GFR (Cockcroft-Gault) 165.4 Glucose Level 200 mg/dL (70-99) Calcium Level 8.7 mg/dL (8.5-10.1) Laboratory Tests Test 05/04/18 17:38 05/05/18 05:30 O2 Saturation 91 % (92-99) Arterial Blood pH 7.39 (7.35-7.45) Arterial Blood pCO2 at Patient Temp 70 mmHg (35-46) Arterial Blood pO2 at Patient Temp 57 mmHg (65-108) Arterial Blood HCO3 42 mmol/L (21-28) Arterial Blood Base Excess 14 mmol/L (-3-3) White Blood Count 16.3 x10^3/uL (4.0-11.0) Red Blood Count 3.93 x10^6/uL (4.30-5.70) Hemoglobin 11.6 g/dL (13.0-17.5) Hematocrit 36.4 % (39.0-53.0) Mean Corpuscular Volume 93 fL (79-100) Mean Corpuscular Hemoglobin 29 pg (25-35) Mean Corpuscular Hemoglobin Concent 32 g/dL (31-37) Red Cell Distribution Width 13.9 % (11.5-14.5) Platelet Count 285 x10^3/uL (140-400) Neutrophils (%) (Auto) 96 % (31-73) Lymphocytes (%) (Auto) 3 % (24-48) Monocytes (%) (Auto) 2 % (0-9) Eosinophils (%) (Auto) 0 % (0-3) Basophils (%) (Auto) 0 % (0-3) Neutrophils # (Auto) 15.6 x10^3uL (1.8-7.7) Lymphocytes # (Auto) 0.4 x10^3/uL (1.0-4.8) Monocytes # (Auto) 0.3 x10^3/uL (0.0-1.1) Eosinophils # (Auto) 0.0 x10^3/uL (0.0-0.7) Basophils # (Auto) 0.0 x10^3/uL (0.0-0.2) Sodium Level 141 mmol/L (136-145) Potassium Level 4.5 mmol/L (3.5-5.1) Chloride Level 98 mmol/L (98-107) Carbon Dioxide Level 41 mmol/L (21-32) Anion Gap 2 (6-14) Blood Urea Nitrogen 14 mg/dL (8-26) Creatinine 0.5 mg/dL (0.7-1.3) Estimated GFR (Cockcroft-Gault) 165.4 Glucose Level 200 mg/dL (70-99) Calcium Level 8.7 mg/dL (8.5-10.1) Microbiology 05/03/18 Blood Culture - Preliminary, Resulted NO GROWTH AFTER 1 DAY Medications Current Medications Albuterol/ Ipratropium (Duoneb) 3 ml 1X ONCE NEB Last administered on at 17:01; Start 05/03/18 at 17:15; Stop 05/03/18 at 17:16; Status DC Sodium Chloride 1,000 ml @ 1,000 mls/hr 1X ONCE IV Last administered on 18:00; Start 05/03/18 at 16:45; Stop 05/03/18 at 17:44; Status DC Methylprednisolone Sodium Succinate (SOLU-Medrol 125MG VIAL) 125 mg 1X ONCE IV Last administered on 05/03/18 18:02; Start 05/03/18 at 17:15; Stop 05/03/18 at 17:16; Status DC Ceftriaxone Sodium (Rocephin) 1 gm 1X ONCE IVP Last administered on 05/03/18 18:06; Start 05/03/18 at 17:30; Stop 05/03/18 at 17:31; Status DC Azithromycin 250 ml @ 250 mls/hr 1X ONCE IV Last administered on 05/03/18 18: 11; Start 05/03/18 at 17:30; Stop 05/03/18 at 18:29; Status DC Albuterol/ Ipratropium (Duoneb) 3 ml 1X ONCE NEB Last administered on 19:06; Start 05/03/18 at 19:15; Stop 05/03/18 at 19:16; Status DC Influenza Virus Vaccine (Afluria Trivalent [id number] Syringe) 0.5 ml ONCE ONCE VAX IM ; Start 05/03/18 at 20:30; Stop 05/03/18 at 20:34; Status DC Albuterol/ Ipratropium (Duoneb) 3 ml RTQID NEB Last administered on 05/05/18 15 :05; Start 05/04/18 at 08:00 Methylprednisolone Sodium Succinate (SOLU-Medrol 40MG VIAL) 40 mg Q12HR IV Last administered on 05/05/18 10:01; Start 05/04/18 at 09:00 Budesonide (Pulmicort) 0.5 mg RTBID NEB Last administered on 05/05/18 07:28; Start 05/04/18 at 08:00 Ceftriaxone Sodium (Rocephin) 1 gm Q24H IVP Last administered on 05/05/18 10:03 ; Start 05/04/18 at 09:00 Doxycycline Hyclate 100 mg/ Dextrose 100 ml @ 50 mls/hr Q12HR IV Last administered on 05/05/18 10:09; Start 05/04/18 at 09:00 Albuterol/ Ipratropium (Duoneb) 3 ml 1X STAT NEB Last administered on 07:58; Start 05/04/18 at 07:49; Stop 05/04/18 at 08:02; Status DC Albuterol Sulfate (Ventolin Neb Soln) 2.5 mg PRN Q4HRS PRN NEB SHORTNESS OF BREATH Last administered on 05/05/18 02:40; Start 05/04/18 at 08:00 Metoprolol Tartrate (Lopressor) 12.5 mg BID PO Last administered on 05/05/18 10 :02; Start 05/04/18 at 09:00 Pantoprazole Sodium (Protonix) 40 mg DAILYAC PO Last administered on 05/05/18 10:01; Start 05/04/18 at 09:00 Potassium Chloride (Klor-Con) 10 meq DAILY PO Last administered on 05/05/18 10: 02; Start 05/04/18 at 09:00 Tamsulosin HCl (Flomax) 0.4 mg DAILY PO Last administered on 05/05/18 10:02; Start 05/04/18 at 09:00 Non-Formulary Medication (Tiotropium [place] (Spiriva)) 1 cap DAILY IH ; Start 05/04/18 at 09:00; Stop 05/04/18 at 09:00; Status DC Guaifenesin (Robitussin Dm) 10 ml PRN Q6HRS PRN PO COUGH Last administered on 10:00; Start 05/04/18 at 08:00 Albuterol/ Ipratropium (Duoneb) 3 ml RTQID NEB ; Start 05/04/18 at 12:00; Stop at 12:00; Status DC Fluticasone Propionate (Flonase) 2 spray DAILY NS Last administered on 10:00; Start 05/04/18 at 14:30 Nicotine (Nicoderm Cq 21mg) 1 patch DAILY TD Last administered on 05/05/18at 12: 38; Start 05/05/18 at 12:15 Lactobacillus Rhamnosus (Culturelle) 1 cap BID PO Last administered on at 14:19; Start 05/05/18 at 13:00 Active Scripts Active Doxycycline Hyclate 100 Mg Tablet 100 Mg PO BID Prednisone (Prednisone) 10 Mg Tablet 10 Mg PO UD Take 4 tablets by mouth daily for 5 days, then take 3 tablets by mouth daily for 5 days, then resume home dose of prednisone Prednisone (Prednisone) 10 Mg Tablet 10 Mg PO UD Take 4 tablets by mouth daily for 3 days, then take 3 tablets by mouth daily for 3 days, then take 2 tablet by mouth daily for 3 days, then take 1 tablet by mouth daily x 3 days, then stop. Reported Protonix (Pantoprazole Sodium) 40 Mg Tablet.dr 40 Mg PO DAILY Potassium Chloride 10 Meq Capsule.er 10 Meq PO DAILY Lasix (Furosemide) 20 Mg Tablet 1 Tab PO DAILY Albuterol Sulfate Neb Soln (Albuterol Sulfate) 2.5 Mg/3 Ml Vial.neb 1 Vial NEB PRN Q4HRS Advair 500-50 Diskus (Fluticasone/Salmeterol) 1 Each Disk.w.dev 1 Puff IH DAILY Spiriva (Tiotropium [place]) 18 Mcg Cap.w.dev 1 Cap IH DAILY Flomax (Tamsulosin Hcl) 0.4 Mg Cap.er.24h 1 Cap PO DAILY Metoprolol Tartrate 25 Mg Tablet 12.5 Mg PO BID Vitals/I & O Vital Sign - Last 24 Hours 05/04/18 05/04/18 05/04/18 05/04/18 19:00 19:52 20:18 21:00 Temp 97.7 97.7 Pulse 105 Resp 18 B/P (MAP) 125/72 (89) Pulse Ox 99 96 O2 Delivery BiPAP/CPAP BiPAP/CPAP Nasal Cannula O2 Flow Rate 4.0 4.0 05/04/18 05/04/18 05/05/18 05/05/18 21:10 22:57 02:40 03:00 Temp 97.6 97.3 97.6 97.3 Pulse 105 94 94 Resp 20 20 B/P (MAP) 125/72 106/58 (74) 128/73 (91) Pulse Ox 94 97 97 O2 Delivery BiPAP/CPAP Nasal Cannula Nasal Cannula O2 Flow Rate 4.0 4.0 05/05/18 05/05/18 05/05/18 05/05/18 07:00 07:29 08:00 10:02 Temp 97.7 97.7 Pulse 94 94 Resp 18 B/P (MAP) 135/70 (91) 135/70 Pulse Ox 97 96 O2 Delivery Nasal Cannula Nasal Cannula Nasal Cannula O2 Flow Rate 4.0 4.0 4.0 05/05/18 05/05/18 05/05/18 05/05/18 10:49 11:17 15:00 15:06 Temp 98.4 98.2 98.4 98.2 Pulse 96 96 Resp 18 18 B/P (MAP) 123/71 (88) 129/75 (93) Pulse Ox 95 95 O2 Delivery Nasal Cannula Nasal Cannula Nasal Cannula Nasal Cannula O2 Flow Rate 2.0 4.0 3.0 4.0 Intake and Output 05/04/18 05/04/18 05/05/18 15:00 23:00 07:00 Intake Total 520 ml 240 ml 100 ml Output Total 3 ml 975 ml Balance 520 ml 237 ml -875 ml MUSA HOYT MD May 05, 2018 17:15
[2018-05-05 19:00] VITALS: BP 124/57
[2018-05-05 23:00] VITALS: BP_SYST 112; BP_SYST 87; BP_DIAS 41; BP_DIAS 65
[2018-05-06 03:06] VITALS: BP 121/68
[2018-05-06 04:15] LABS: BASO % 0 % (0-3); EOS % 0 % (0-3); HEMATOCRIT 35.1 % (39.0-53.0); HEMOGLOBIN 11.1 g/dL (13.0-17.5); LYMPH # 0.3 x10^3/uL (1.0-4.8); LYMPH % 3 % (24-48); MEAN CORPUSCULAR HEMOGLOBIN 30 pg (25-35); MEAN CORPUSCULAR HGB CONC 32 g/dL (31-37); MEAN CORPUSCULAR VOLUME 94 fL (79-100); MONO # 0.3 x10^3/uL (0.0-1.1); MONO % 3 % (0-9); NEUT # 10.6 x10^3uL (1.8-7.7); NEUT % 94 % (31-73); PLATELET COUNT 291 x10^3/uL (140-400); RED BLOOD COUNT 3.76 x10^6/uL (4.30-5.70); RED CELL DISTRIBUTION WIDTH 14.1 % (11.5-14.5); WHITE BLOOD COUNT 11.3 x10^3/uL (4.0-11.0)
[2018-05-06 04:25] LABS: CALCIUM 9.2 mg/dL (8.5-10.1); CREATININE 0.7 mg/dL (0.7-1.3); GFR 112.1; POTASSIUM 4.4 mmol/L (3.5-5.1)
[2018-05-06 07:00] VITALS: BP 129/69
[2018-05-06] MEDS: IPRATRPIUM/ALBUTEROL 0.5/2.5MG 3 ML NEBU. NEB SCH ×4 (07:31→19:41)
[2018-05-06] MEDS: BUDESONIDE 0.5 MG/2 ML NEBU. NEB SCH ×2 (07:35→19:42)
[2018-05-06] MEDS: PANTOPRAZOLE 40 MG TABLET.DR. PO SCH (08:50)
[2018-05-06] MEDS: TAMSULOSIN 0.4 MG CAP.ER.24H. PO SCH (08:50)
[2018-05-06] MEDS: LACTOBACILLUS RHAMNOSUS GG 1 CAPSULE. PO SCH ×2 (08:51→20:16)
[2018-05-06] MEDS: NICOTINE 21MG PATCH. TD SCH (08:51)
[2018-05-06] MEDS: METOPROLOL TART IMMED RELEASE 25 MG TABLET. PO SCH ×2 (08:51→20:17)
[2018-05-06] MEDS: cefTRIAXone IV Push 1 GM VIAL. IVP SCH (08:52)
[2018-05-06] MEDS: methylPREDNISolone SOD SUCC PF 40 MG/ML VIAL. IV SCH ×2 (08:52→20:16)
[2018-05-06] MEDS: DOXYCYCLINE HYCLATE 100 MG in IV DEXTROSE 5% 100ML 100 ML IV SCH ×2 (08:53→20:15)
[2018-05-06] MEDS: FLUTICASONE 50MCG/NASAL SPRAY 16GM BOTTLE. NS SCH (08:53)
--- NOTE | 2018-05-06 09:21 | PDOC ---
PULMONARY PROGRESS NOTES Subjective Patient better but still SOA Vitals Vital Signs Date Time Temp Pulse Resp B/P (MAP) Pulse Ox O2 Delivery O2 Flow Rate FiO2 05/06/18 08:51 98 121/68 05/06/18 07:33 96 Nasal Cannula 4.0 05/06/18 03:06 97.3 20 97.3 ROS: No Nausea, No Chest Pain, No Abdominal Pain, No Increase Cough General: Alert Lungs: Wheezing, Crackles Cardiovascular: S1, S2 Abdomen: Soft, Non-tender Neuro Exam: Alert Extremities: No Edema Skin: Warm Labs Laboratory Tests Test 05/04/18 17:38 05/05/18 05:30 05/06/18 03:10 05/06/18 03:15 O2 Saturation 91 % (92-99) Arterial Blood pH 7.39 (7.35-7.45) Arterial Blood pCO2 at Patient Temp 70 mmHg (35-46) Arterial Blood pO2 at Patient Temp 57 mmHg (65-108) Arterial Blood HCO3 42 mmol/L (21-28) Arterial Blood Base Excess 14 mmol/L (-3-3) White Blood Count 16.3 x10^3/uL (4.0-11.0) 11.3 x10^3/uL (4.0-11.0) Red Blood Count 3.93 x10^6/uL (4.30-5.70) 3.76 x10^6/uL (4.30-5.70) Hemoglobin 11.6 g/dL (13.0-17.5) 11.1 g/dL (13.0-17.5) Hematocrit 36.4 % (39.0-53.0) 35.1 % (39.0-53.0) Mean Corpuscular Volume 93 fL (79-100) 94 fL (79-100) Mean Corpuscular Hemoglobin 29 pg (25-35) 30 pg (25-35) Mean Corpuscular Hemoglobin Concent 32 g/dL (31-37) 32 g/dL (31-37) Red Cell Distribution Width 13.9 % (11.5-14.5) 14.1 % (11.5-14.5) Platelet Count 285 x10^3/uL (140-400) 291 x10^3/uL (140-400) Neutrophils (%) (Auto) 96 % (31-73) 94 % (31-73) Lymphocytes (%) (Auto) 3 % (24-48) 3 % (24-48) Monocytes (%) (Auto) 2 % (0-9) 3 % (0-9) Eosinophils (%) (Auto) 0 % (0-3) 0 % (0-3) Basophils (%) (Auto) 0 % (0-3) 0 % (0-3) Neutrophils # (Auto) 15.6 x10^3uL (1.8-7.7) 10.6 x10^3uL (1.8-7.7) Lymphocytes # (Auto) 0.4 x10^3/uL (1.0-4.8) 0.3 x10^3/uL (1.0-4.8) Monocytes # (Auto) 0.3 x10^3/uL (0.0-1.1) 0.3 x10^3/uL (0.0-1.1) Eosinophils # (Auto) 0.0 x10^3/uL (0.0-0.7) 0.0 x10^3/uL (0.0-0.7) Basophils # (Auto) 0.0 x10^3/uL (0.0-0.2) 0.0 x10^3/uL (0.0-0.2) Sodium Level 141 mmol/L (136-145) 138 mmol/L (136-145) Potassium Level 4.5 mmol/L (3.5-5.1) 4.4 mmol/L (3.5-5.1) Chloride Level 98 mmol/L (98-107) 97 mmol/L (98-107) Carbon Dioxide Level 41 mmol/L (21-32) 43 mmol/L (21-32) Anion Gap 2 (6-14) -2 (6-14) Blood Urea Nitrogen 14 mg/dL (8-26) 19 mg/dL (8-26) Creatinine 0.5 mg/dL (0.7-1.3) 0.7 mg/dL (0.7-1.3) Estimated GFR (Cockcroft-Gault) 165.4 112.1 Glucose Level 200 mg/dL (70-99) 222 mg/dL (70-99) Calcium Level 8.7 mg/dL (8.5-10.1) 9.2 mg/dL (8.5-10.1) Laboratory Tests Test 05/06/18 03:10 05/06/18 03:15 White Blood Count 11.3 x10^3/uL (4.0-11.0) Red Blood Count 3.76 x10^6/uL (4.30-5.70) Hemoglobin 11.1 g/dL (13.0-17.5) Hematocrit 35.1 % (39.0-53.0) Mean Corpuscular Volume 94 fL (79-100) Mean Corpuscular Hemoglobin 30 pg (25-35) Mean Corpuscular Hemoglobin Concent 32 g/dL (31-37) Red Cell Distribution Width 14.1 % (11.5-14.5) Platelet Count 291 x10^3/uL (140-400) Neutrophils (%) (Auto) 94 % (31-73) Lymphocytes (%) (Auto) 3 % (24-48) Monocytes (%) (Auto) 3 % (0-9) Eosinophils (%) (Auto) 0 % (0-3) Basophils (%) (Auto) 0 % (0-3) Neutrophils # (Auto) 10.6 x10^3uL (1.8-7.7) Lymphocytes # (Auto) 0.3 x10^3/uL (1.0-4.8) Monocytes # (Auto) 0.3 x10^3/uL (0.0-1.1) Eosinophils # (Auto) 0.0 x10^3/uL (0.0-0.7) Basophils # (Auto) 0.0 x10^3/uL (0.0-0.2) Sodium Level 138 mmol/L (136-145) Potassium Level 4.4 mmol/L (3.5-5.1) Chloride Level 97 mmol/L (98-107) Carbon Dioxide Level 43 mmol/L (21-32) Anion Gap -2 (6-14) Blood Urea Nitrogen 19 mg/dL (8-26) Creatinine 0.7 mg/dL (0.7-1.3) Estimated GFR (Cockcroft-Gault) 112.1 Glucose Level 222 mg/dL (70-99) Calcium Level 9.2 mg/dL (8.5-10.1) Medications Active Scripts Medications Dose Route/Sig Max Daily Dose Days Date Category Dose Instructions Doxycycline Hyclate 100 Mg Tablet 100 Mg PO BID 04/16/16 Rx Prednisone (Prednisone) 10 Mg Tablet 10 Mg PO UD 04/16/16 Rx Take 4 tablets by mouth daily for 5 days, then take 3 tablets by mouth daily for 5 days, then resume home dose of prednisone Protonix (Pantoprazole Sodium) 40 Mg Tablet.dr 40 Mg PO DAILY 11/18/15 Reported Potassium Chloride 10 Meq Capsule.er 10 Meq PO DAILY 11/18/15 Reported Lasix (Furosemide) 20 Mg Tablet 1 Tab PO DAILY 11/18/15 Reported Prednisone (Prednisone) 10 Mg Tablet 10 Mg PO UD 10/15/15 Rx Take 4 tablets by mouth daily for 3 days, then take 3 tablets by mouth daily for 3 days, then take 2 tablet by mouth daily for 3 days, then take 1 tablet by mouth daily x 3 days, then stop. Albuterol Sulfate Neb Soln (Albuterol Sulfate) 2.5 Mg/3 Ml Vial.neb 1 Vial NEB PRN Q4HRS 10/11/15 Reported Advair 500-50 Diskus (Fluticasone/Salmeterol) 1 Each Disk.w.dev 1 Puff IH DAILY 10/11/15 Reported Spiriva (Tiotropium [place]) 18 Mcg Cap.w.dev 1 Cap IH DAILY 10/11/15 Reported Flomax (Tamsulosin Hcl) 0.4 Mg Cap.er.24h 1 Cap PO DAILY 10/11/15 Reported Metoprolol Tartrate 25 Mg Tablet 12.5 Mg PO BID 10/11/15 Reported Impression . IMPRESSION: 1. Acute on chronic hypoxemic hypercapnic respiratory failure. 2. Pneumonia, suspect gram-negative, gram-positive. 3. Pulmonary fibrosis. 4. Tobacco dependence. 5. Gastroesophageal reflux. Plan . will obtain ABG, may qualify for a home BiPAP continue antibiotics and steroids continue BiPAP discuss with case management and social service MARISABEL PULIDO MD May 06, 2018 09:21
[2018-05-06] MEDS: POTASSIUM CHLORIDE 10 MEQ TABLET.ER. PO SCH (09:40)
[2018-05-06 11:00] VITALS: BP 134/75
[2018-05-06 15:00] VITALS: BP 137/71
[2018-05-06 16:40] LABS: BASE EXCESS ABG 15 mmol/L (-3-3); HCO3 ABG 44 mmol/L (21-28); PO2 ABG 70 mmHg (65-108); SAT O2 ABG 94 % (92-99)
[2018-05-06 16:41] LABS: PCO2 ABG 77 mmHg (35-46)
[2018-05-06 19:00] VITALS: BP 160/82
--- NOTE | 2018-05-06 19:17 | PDOC ---
PROGRESS NOTES Chief Complaint Chief Complaint [id number] respiratory failure - off BIPAP currently. Steroids, nebs, treat pneumonia. Community acquired pneumonia - rocephin + doxy Sepsis - tachy with RR and leukocytosis, this is likely from gram positive or high risk of gram negative/atypical pneumonia with history of COPD. Given IVF. Antibiotics given Acute exacerbation of chronic obstructive pulmonary disease - as above, nebs, steroids Tobacco dependence - counseled. Nicotine patch Murmur - systolic, awaiting TTE. Likely from . Consulted cardiology per pt request HTN: controlled HLD - statin History of Present Illness History of Present Illness Patient with no acute events reported overnight, patient denies fever chills or new complaints. Reassurance provided. Patient was able to ambulate today on the hallways but gets winded very quickly. Reassurance has been provided we will continue to monitor on a daily basis his progress definitely improved compared to admission Vitals Vitals Vital Signs Date Time Temp Pulse Resp B/P (MAP) Pulse Ox O2 Delivery O2 Flow Rate FiO2 05/06/18 15:48 96 Nasal Cannula 4.0 05/06/18 15:00 98.3 98 20 137/71 (93) 98.3 Physical Exam General: Alert, Oriented X3, Cooperative, No acute distress Heart: Regular rate (sinus tach), Normal S1, Normal S2, Other (2/6 systolic murmur otherwise no significant murmur) Lungs: Wheezing, Crackles Abdomen: Normal bowel sounds, Soft, No hepatosplenomegaly, No masses Extremities: No clubbing, No cyanosis, No edema, Normal pulses, No tenderness/ swelling Skin: No rashes, No breakdown, No significant lesion Labs LABS Laboratory Tests Test 05/06/18 03:10 05/06/18 03:15 05/06/18 12:07 05/06/18 15:45 White Blood Count 11.3 x10^3/uL (4.0-11.0) Red Blood Count 3.76 x10^6/uL (4.30-5.70) Hemoglobin 11.1 g/dL (13.0-17.5) Hematocrit 35.1 % (39.0-53.0) Mean Corpuscular Volume 94 fL (79-100) Mean Corpuscular Hemoglobin 30 pg (25-35) Mean Corpuscular Hemoglobin Concent 32 g/dL (31-37) Red Cell Distribution Width 14.1 % (11.5-14.5) Platelet Count 291 x10^3/uL (140-400) Neutrophils (%) (Auto) 94 % (31-73) Lymphocytes (%) (Auto) 3 % (24-48) Monocytes (%) (Auto) 3 % (0-9) Eosinophils (%) (Auto) 0 % (0-3) Basophils (%) (Auto) 0 % (0-3) Neutrophils # (Auto) 10.6 x10^3uL (1.8-7.7) Lymphocytes # (Auto) 0.3 x10^3/uL (1.0-4.8) Monocytes # (Auto) 0.3 x10^3/uL (0.0-1.1) Eosinophils # (Auto) 0.0 x10^3/uL (0.0-0.7) Basophils # (Auto) 0.0 x10^3/uL (0.0-0.2) Sodium Level 138 mmol/L (136-145) Potassium Level 4.4 mmol/L (3.5-5.1) Chloride Level 97 mmol/L (98-107) Carbon Dioxide Level 43 mmol/L (21-32) Anion Gap -2 (6-14) Blood Urea Nitrogen 19 mg/dL (8-26) Creatinine 0.7 mg/dL (0.7-1.3) Estimated GFR (Cockcroft-Gault) 112.1 Glucose Level 222 mg/dL (70-99) Calcium Level 9.2 mg/dL (8.5-10.1) Glucose (Fingerstick) 234 mg/dL (70-99) O2 Saturation 94 % (92-99) Arterial Blood pH 7.37 (7.35-7.45) Arterial Blood pCO2 at Patient Temp 77 mmHg (35-46) Arterial Blood pO2 at Patient Temp 70 mmHg (65-108) Arterial Blood HCO3 44 mmol/L (21-28) Arterial Blood Base Excess 15 mmol/L (-3-3) FiO2 4 lpm nc Test 05/06/18 16:16 Glucose (Fingerstick) 166 mg/dL (70-99) Review of Systems Review of Systems 10 point review is negative on ly pertinent as per HPI Assessment and Plan Assessmemt and Plan Problems Medical Problems: (1) COPD exacerbation Status: Acute Comment Review of Relevant I have reviewed the following items zaire (where applicable) has been applied. Labs Laboratory Tests Test 05/05/18 05:30 05/06/18 03:10 05/06/18 03:15 05/06/18 12:07 White Blood Count 16.3 x10^3/uL (4.0-11.0) 11.3 x10^3/uL (4.0-11.0) Red Blood Count 3.93 x10^6/uL (4.30-5.70) 3.76 x10^6/uL (4.30-5.70) Hemoglobin 11.6 g/dL (13.0-17.5) 11.1 g/dL (13.0-17.5) Hematocrit 36.4 % (39.0-53.0) 35.1 % (39.0-53.0) Mean Corpuscular Volume 93 fL (79-100) 94 fL (79-100) Mean Corpuscular Hemoglobin 29 pg (25-35) 30 pg (25-35) Mean Corpuscular Hemoglobin Concent 32 g/dL (31-37) 32 g/dL (31-37) Red Cell Distribution Width 13.9 % (11.5-14.5) 14.1 % (11.5-14.5) Platelet Count 285 x10^3/uL (140-400) 291 x10^3/uL (140-400) Neutrophils (%) (Auto) 96 % (31-73) 94 % (31-73) Lymphocytes (%) (Auto) 3 % (24-48) 3 % (24-48) Monocytes (%) (Auto) 2 % (0-9) 3 % (0-9) Eosinophils (%) (Auto) 0 % (0-3) 0 % (0-3) Basophils (%) (Auto) 0 % (0-3) 0 % (0-3) Neutrophils # (Auto) 15.6 x10^3uL (1.8-7.7) 10.6 x10^3uL (1.8-7.7) Lymphocytes # (Auto) 0.4 x10^3/uL (1.0-4.8) 0.3 x10^3/uL (1.0-4.8) Monocytes # (Auto) 0.3 x10^3/uL (0.0-1.1) 0.3 x10^3/uL (0.0-1.1) Eosinophils # (Auto) 0.0 x10^3/uL (0.0-0.7) 0.0 x10^3/uL (0.0-0.7) Basophils # (Auto) 0.0 x10^3/uL (0.0-0.2) 0.0 x10^3/uL (0.0-0.2) Sodium Level 141 mmol/L (136-145) 138 mmol/L (136-145) Potassium Level 4.5 mmol/L (3.5-5.1) 4.4 mmol/L (3.5-5.1) Chloride Level 98 mmol/L (98-107) 97 mmol/L (98-107) Carbon Dioxide Level 41 mmol/L (21-32) 43 mmol/L (21-32) Anion Gap 2 (6-14) -2 (6-14) Blood Urea Nitrogen 14 mg/dL (8-26) 19 mg/dL (8-26) Creatinine 0.5 mg/dL (0.7-1.3) 0.7 mg/dL (0.7-1.3) Estimated GFR (Cockcroft-Gault) 165.4 112.1 Glucose Level 200 mg/dL (70-99) 222 mg/dL (70-99) Calcium Level 8.7 mg/dL (8.5-10.1) 9.2 mg/dL (8.5-10.1) Glucose (Fingerstick) 234 mg/dL (70-99) Test 05/06/18 15:45 05/06/18 16:16 O2 Saturation 94 % (92-99) Arterial Blood pH 7.37 (7.35-7.45) Arterial Blood pCO2 at Patient Temp 77 mmHg (35-46) Arterial Blood pO2 at Patient Temp 70 mmHg (65-108) Arterial Blood HCO3 44 mmol/L (21-28) Arterial Blood Base Excess 15 mmol/L (-3-3) FiO2 4 lpm nc Glucose (Fingerstick) 166 mg/dL (70-99) Laboratory Tests Test 05/06/18 03:10 05/06/18 03:15 05/06/18 12:07 05/06/18 15:45 White Blood Count 11.3 x10^3/uL (4.0-11.0) Red Blood Count 3.76 x10^6/uL (4.30-5.70) Hemoglobin 11.1 g/dL (13.0-17.5) Hematocrit 35.1 % (39.0-53.0) Mean Corpuscular Volume 94 fL (79-100) Mean Corpuscular Hemoglobin 30 pg (25-35) Mean Corpuscular Hemoglobin Concent 32 g/dL (31-37) Red Cell Distribution Width 14.1 % (11.5-14.5) Platelet Count 291 x10^3/uL (140-400) Neutrophils (%) (Auto) 94 % (31-73) Lymphocytes (%) (Auto) 3 % (24-48) Monocytes (%) (Auto) 3 % (0-9) Eosinophils (%) (Auto) 0 % (0-3) Basophils (%) (Auto) 0 % (0-3) Neutrophils # (Auto) 10.6 x10^3uL (1.8-7.7) Lymphocytes # (Auto) 0.3 x10^3/uL (1.0-4.8) Monocytes # (Auto) 0.3 x10^3/uL (0.0-1.1) Eosinophils # (Auto) 0.0 x10^3/uL (0.0-0.7) Basophils # (Auto) 0.0 x10^3/uL (0.0-0.2) Sodium Level 138 mmol/L (136-145) Potassium Level 4.4 mmol/L (3.5-5.1) Chloride Level 97 mmol/L (98-107) Carbon Dioxide Level 43 mmol/L (21-32) Anion Gap -2 (6-14) Blood Urea Nitrogen 19 mg/dL (8-26) Creatinine 0.7 mg/dL (0.7-1.3) Estimated GFR (Cockcroft-Gault) 112.1 Glucose Level 222 mg/dL (70-99) Calcium Level 9.2 mg/dL (8.5-10.1) Glucose (Fingerstick) 234 mg/dL (70-99) O2 Saturation 94 % (92-99) Arterial Blood pH 7.37 (7.35-7.45) Arterial Blood pCO2 at Patient Temp 77 mmHg (35-46) Arterial Blood pO2 at Patient Temp 70 mmHg (65-108) Arterial Blood HCO3 44 mmol/L (21-28) Arterial Blood Base Excess 15 mmol/L (-3-3) FiO2 4 lpm nc Test 05/06/18 16:16 Glucose (Fingerstick) 166 mg/dL (70-99) Microbiology 05/03/18 Blood Culture - Preliminary, Resulted NO GROWTH AFTER 3 DAYS Medications Current Medications Albuterol/ Ipratropium (Duoneb) 3 ml 1X ONCE NEB Last administered on 17:01; Start 05/03/18 at 17:15; Stop 05/03/18 at 17:16; Status DC Sodium Chloride 1,000 ml @ 1,000 mls/hr 1X ONCE IV Last administered on 18:00; Start 05/03/18 at 16:45; Stop 05/03/18 at 17:44; Status DC Methylprednisolone Sodium Succinate (SOLU-Medrol 125MG VIAL) 125 mg 1X ONCE IV Last administered on 05/03/18 18:02; Start 05/03/18 at 17:15; Stop 05/03/18 at 17:16; Status DC Ceftriaxone Sodium (Rocephin) 1 gm 1X ONCE IVP Last administered on 05/03/18 18:06; Start 05/03/18 at 17:30; Stop 05/03/18 at 17:31; Status DC Azithromycin 250 ml @ 250 mls/hr 1X ONCE IV Last administered on 05/03/18at 18: 11; Start 05/03/18 at 17:30; Stop 05/03/18 at 18:29; Status DC Albuterol/ Ipratropium (Duoneb) 3 ml 1X ONCE NEB Last administered on 19:06; Start 05/03/18 at 19:15; Stop 05/03/18 at 19:16; Status DC Influenza Virus Vaccine (Afluria Trivalent [id number] Syringe) 0.5 ml ONCE ONCE VAX IM Last administered on 05/06/18at 09:40; Start 05/03/18 at 20:30; Stop at 20:34; Status DC Albuterol/ Ipratropium (Duoneb) 3 ml RTQID NEB Last administered on 05/06/18 15 :46; Start 05/04/18 at 08:00 Methylprednisolone Sodium Succinate (SOLU-Medrol 40MG VIAL) 40 mg Q12HR IV Last administered on 05/06/18 08:52; Start 05/04/18 at 09:00 Budesonide (Pulmicort) 0.5 mg RTBID NEB Last administered on 05/06/18 07:35; Start 05/04/18 at 08:00 Ceftriaxone Sodium (Rocephin) 1 gm Q24H IVP Last administered on 05/06/18 08:52 ; Start 05/04/18 at 09:00 Doxycycline Hyclate 100 mg/ Dextrose 100 ml @ 50 mls/hr Q12HR IV Last administered on 05/06/18 08:53; Start 05/04/18 at 09:00 Albuterol/ Ipratropium (Duoneb) 3 ml 1X STAT NEB Last administered on 07:58; Start 05/04/18 at 07:49; Stop 05/04/18 at 08:02; Status DC Albuterol Sulfate (Ventolin Neb Soln) 2.5 mg PRN Q4HRS PRN NEB SHORTNESS OF BREATH Last administered on 05/05/18 02:40; Start 05/04/18 at 08:00 Metoprolol Tartrate (Lopressor) 12.5 mg BID PO Last administered on 05/06/18 08 :51; Start 05/04/18 at 09:00 Pantoprazole Sodium (Protonix) 40 mg DAILYAC PO Last administered on 05/06/18 08:50; Start 05/04/18 at 09:00 Potassium Chloride (Klor-Con) 10 meq DAILY PO Last administered on 05/06/18 09: 40; Start 05/04/18 at 09:00 Tamsulosin HCl (Flomax) 0.4 mg DAILY PO Last administered on 05/06/18 08:50; Start 05/04/18 at 09:00 Non-Formulary Medication (Tiotropium [place] (Spiriva)) 1 cap DAILY IH ; Start 05/04/18 at 09:00; Stop 05/04/18 at 09:00; Status DC Guaifenesin (Robitussin Dm) 10 ml PRN Q6HRS PRN PO COUGH Last administered on at 10:00; Start 05/04/18 at 08:00 Albuterol/ Ipratropium (Duoneb) 3 ml RTQID NEB ; Start 05/04/18 at 12:00; Stop at 12:00; Status DC Fluticasone Propionate (Flonase) 2 spray DAILY NS Last administered on at 10:00; Start 05/04/18 at 14:30 Nicotine (Nicoderm Cq 21mg) 1 patch DAILY TD Last administered on 05/06/18at 08: 51; Start 05/05/18 at 12:15 Lactobacillus Rhamnosus (Culturelle) 1 cap BID PO Last administered on at 08:51; Start 05/05/18 at 13:00 Active Scripts Active Doxycycline Hyclate 100 Mg Tablet 100 Mg PO BID Prednisone (Prednisone) 10 Mg Tablet 10 Mg PO UD Take 4 tablets by mouth daily for 5 days, then take 3 tablets by mouth daily for 5 days, then resume home dose of prednisone Prednisone (Prednisone) 10 Mg Tablet 10 Mg PO UD Take 4 tablets by mouth daily for 3 days, then take 3 tablets by mouth daily for 3 days, then take 2 tablet by mouth daily for 3 days, then take 1 tablet by mouth daily x 3 days, then stop. Reported Protonix (Pantoprazole Sodium) 40 Mg Tablet.dr 40 Mg PO DAILY Potassium Chloride 10 Meq Capsule.er 10 Meq PO DAILY Lasix (Furosemide) 20 Mg Tablet 1 Tab PO DAILY Albuterol Sulfate Neb Soln (Albuterol Sulfate) 2.5 Mg/3 Ml Vial.neb 1 Vial NEB PRN Q4HRS Advair 500-50 Diskus (Fluticasone/Salmeterol) 1 Each Disk.w.dev 1 Puff IH DAILY Spiriva (Tiotropium [place]) 18 Mcg Cap.w.dev 1 Cap IH DAILY Flomax (Tamsulosin Hcl) 0.4 Mg Cap.er.24h 1 Cap PO DAILY Metoprolol Tartrate 25 Mg Tablet 12.5 Mg PO BID Vitals/I & O Vital Sign - Last 24 Hours 05/05/18 05/05/18 05/05/18 05/05/18 19:29 19:31 19:31 19:57 Pulse 100 B/P (MAP) 124/57 Pulse Ox 96 96 O2 Delivery Nasal Cannula Nasal Cannula O2 Flow Rate 4.0 4.0 4.0 05/05/18 05/05/18 05/06/18 05/06/18 20:00 23:00 00:01 03:06 Temp 97.6 97.3 97.6 97.3 Pulse 97 98 Resp B/P (MAP) 112/65 (81) 121/68 (85) Pulse Ox 95 95 92 O2 Delivery Nasal Cannula BiPAP/CPAP BiPAP/CPAP BiPAP/CPAP O2 Flow Rate 4.0 05/06/18 05/06/18 05/06/18 05/06/18 07:00 07:33 08:00 08:51 Temp 98.1 98.1 Pulse 90 98 Resp 22 B/P (MAP) 129/69 (89) 121/68 Pulse Ox 94 96 O2 Delivery BiPAP/CPAP Nasal Cannula Nasal Cannula O2 Flow Rate 4.0 4.0 05/06/18 05/06/18 05/06/18 05/06/18 11:00 11:20 15:00 15:48 Temp 98.3 98.3 98.3 98.3 Pulse 104 98 Resp B/P (MAP) 134/75 (94) 137/71 (93) Pulse Ox 93 94 91 96 O2 Delivery BiPAP/CPAP Nasal Cannula BiPAP/CPAP Nasal Cannula O2 Flow Rate 4.0 4.0 Intake and Output 05/05/18 05/05/18 05/06/18 14:59 22:59 06:59 Intake Total 600 ml 400 ml Output Total 700 ml Balance 600 ml 400 ml -700 ml MUSA HOYT MD May 06, 2018 19:17
[2018-05-06 23:00] VITALS: BP 135/73
[2018-05-07 03:00] VITALS: BP 132/65
[2018-05-07 07:00] VITALS: BP 154/55
[2018-05-07] MEDS: BUDESONIDE 0.5 MG/2 ML NEBU. NEB SCH ×2 (07:34→19:49)
[2018-05-07] MEDS: IPRATRPIUM/ALBUTEROL 0.5/2.5MG 3 ML NEBU. NEB SCH ×4 (07:34→19:49)
--- NOTE | 2018-05-07 08:13 | NUR ---
SW consulted to set up home Bipap with [facility]. SW faxed referral to [facility] and requested for an order form. Will continue to follow.
[2018-05-07] MEDS: NICOTINE 21MG PATCH. TD SCH ×2 (09:00→11:55)
[2018-05-07] MEDS: POTASSIUM CHLORIDE 10 MEQ TABLET.ER. PO SCH (09:19)
[2018-05-07] MEDS: TAMSULOSIN 0.4 MG CAP.ER.24H. PO SCH (09:19)
[2018-05-07] MEDS: LACTOBACILLUS RHAMNOSUS GG 1 CAPSULE. PO SCH ×2 (09:19→20:53)
[2018-05-07] MEDS: PANTOPRAZOLE 40 MG TABLET.DR. PO SCH (09:19)
[2018-05-07] MEDS: METOPROLOL TART IMMED RELEASE 25 MG TABLET. PO SCH ×2 (09:20→20:54)
[2018-05-07] MEDS: guaiFENesin DM 200MG/20MG 10 ML SYRUP PO PRN (09:22)
[2018-05-07] MEDS: FLUTICASONE 50MCG/NASAL SPRAY 16GM BOTTLE. NS SCH (09:22)
[2018-05-07] MEDS: methylPREDNISolone SOD SUCC PF 40 MG/ML VIAL. IV SCH ×2 (09:23→20:54)
[2018-05-07] MEDS: cefTRIAXone IV Push 1 GM VIAL. IVP SCH (09:23)
[2018-05-07] MEDS: DOXYCYCLINE HYCLATE 100 MG in IV DEXTROSE 5% 100ML 100 ML IV SCH ×2 (09:24→20:55)
--- NOTE | 2018-05-07 10:20 | NUR ---
[facility] following. Spoke with pt at bedside who reported he already has home triolgy through [facility]. Cailin from [facility] also confirmed pt had received equipment through [facility]. Dr. Cardoso notified. [facility] provided pt with [facility] area of aging and [facility] information. RN notified.
--- NOTE | 2018-05-07 10:21 | PDOC ---
PULMONARY PROGRESS NOTES Subjective Patient better but still SOA Vitals Vital Signs Date Time Temp Pulse Resp B/P (MAP) Pulse Ox O2 Delivery O2 Flow Rate FiO2 05/07/18 09:20 63 154/55 05/07/18 08:00 Nasal Cannula 2.0 05/07/18 07:35 92 05/07/18 07:00 98.6 17 98.6 ROS: No Nausea, No Chest Pain, No Abdominal Pain, No Increase Cough General: Alert Lungs: Wheezing, Crackles Cardiovascular: S1, S2 Abdomen: Soft, Non-tender Neuro Exam: Alert Extremities: No Edema Skin: Warm Labs Laboratory Tests Test 05/06/18 03:10 05/06/18 03:15 05/06/18 12:07 05/06/18 15:45 White Blood Count 11.3 x10^3/uL (4.0-11.0) Red Blood Count 3.76 x10^6/uL (4.30-5.70) Hemoglobin 11.1 g/dL (13.0-17.5) Hematocrit 35.1 % (39.0-53.0) Mean Corpuscular Volume 94 fL (79-100) Mean Corpuscular Hemoglobin 30 pg (25-35) Mean Corpuscular Hemoglobin Concent 32 g/dL (31-37) Red Cell Distribution Width 14.1 % (11.5-14.5) Platelet Count 291 x10^3/uL (140-400) Neutrophils (%) (Auto) 94 % (31-73) Lymphocytes (%) (Auto) 3 % (24-48) Monocytes (%) (Auto) 3 % (0-9) Eosinophils (%) (Auto) 0 % (0-3) Basophils (%) (Auto) 0 % (0-3) Neutrophils # (Auto) 10.6 x10^3uL (1.8-7.7) Lymphocytes # (Auto) 0.3 x10^3/uL (1.0-4.8) Monocytes # (Auto) 0.3 x10^3/uL (0.0-1.1) Eosinophils # (Auto) 0.0 x10^3/uL (0.0-0.7) Basophils # (Auto) 0.0 x10^3/uL (0.0-0.2) Sodium Level 138 mmol/L (136-145) Potassium Level 4.4 mmol/L (3.5-5.1) Chloride Level 97 mmol/L (98-107) Carbon Dioxide Level 43 mmol/L (21-32) Anion Gap -2 (6-14) Blood Urea Nitrogen 19 mg/dL (8-26) Creatinine 0.7 mg/dL (0.7-1.3) Estimated GFR (Cockcroft-Gault) 112.1 Glucose Level 222 mg/dL (70-99) Calcium Level 9.2 mg/dL (8.5-10.1) Glucose (Fingerstick) 234 mg/dL (70-99) O2 Saturation 94 % (92-99) Arterial Blood pH 7.37 (7.35-7.45) Arterial Blood pCO2 at Patient Temp 77 mmHg (35-46) Arterial Blood pO2 at Patient Temp 70 mmHg (65-108) Arterial Blood HCO3 44 mmol/L (21-28) Arterial Blood Base Excess 15 mmol/L (-3-3) FiO2 4 lpm nc Test 05/06/18 16:16 05/07/18 07:18 Glucose (Fingerstick) 166 mg/dL (70-99) 122 mg/dL (70-99) Laboratory Tests Test 05/06/18 12:07 05/06/18 15:45 05/06/18 16:16 05/07/18 07:18 Glucose (Fingerstick) 234 mg/dL (70-99) 166 mg/dL (70-99) 122 mg/dL (70-99) O2 Saturation 94 % (92-99) Arterial Blood pH 7.37 (7.35-7.45) Arterial Blood pCO2 at Patient Temp 77 mmHg (35-46) Arterial Blood pO2 at Patient Temp 70 mmHg (65-108) Arterial Blood HCO3 44 mmol/L (21-28) Arterial Blood Base Excess 15 mmol/L (-3-3) FiO2 4 lpm nc Medications Active Scripts Medications Dose Route/Sig Max Daily Dose Days Date Category Dose Instructions Doxycycline Hyclate 100 Mg Tablet 100 Mg PO BID 04/16/16 Rx Prednisone (Prednisone) 10 Mg Tablet 10 Mg PO UD 04/16/16 Rx Take 4 tablets by mouth daily for 5 days, then take 3 tablets by mouth daily for 5 days, then resume home dose of prednisone Protonix (Pantoprazole Sodium) 40 Mg Tablet. 40 Mg PO DAILY 11/18/15 Reported Potassium Chloride 10 Meq Capsule.er 10 Meq PO DAILY 11/18/15 Reported Lasix (Furosemide) 20 Mg Tablet 1 Tab PO DAILY 11/18/15 Reported Prednisone (Prednisone) 10 Mg Tablet 10 Mg PO UD 10/15/15 Rx Take 4 tablets by mouth daily for 3 days, then take 3 tablets by mouth daily for 3 days, then take 2 tablet by mouth daily for 3 days, then take 1 tablet by mouth daily x 3 days, then stop. Albuterol Sulfate Neb Soln (Albuterol Sulfate) 2.5 Mg/3 Ml Vial.neb 1 Vial NEB PRN Q4HRS 10/11/15 Reported Advair 500-50 Diskus (Fluticasone/Salmeterol) 1 Each Disk.w.dev 1 Puff IH DAILY 10/11/15 Reported Spiriva (Tiotropium [place]) 18 Mcg Cap.w.dev 1 Cap IH DAILY 10/11/15 Reported Flomax (Tamsulosin Hcl) 0.4 Mg Cap.er.24h 1 Cap PO DAILY 10/11/15 Reported Metoprolol Tartrate 25 Mg Tablet 12.5 Mg PO BID 10/11/15 Reported Impression . IMPRESSION: 1. Acute on chronic hypoxemic hypercapnic respiratory failure. 2. Pneumonia, suspect gram-negative, gram-positive. 3. Pulmonary fibrosis. 4. Tobacco dependence. 5. Gastroesophageal reflux. Plan . PT INFORMED ME THAT HE HAS A BIPAP AT HOME NOT COMPLAINANT AT TIMES POSSIBLE D/C IN MARISABEL BOWERS MD May 07, 2018 10:21
[2018-05-07 11:00] VITALS: BP 143/77
[2018-05-07 15:00] VITALS: BP 133/61
--- NOTE | 2018-05-07 17:07 | PDOC ---
PROGRESS NOTES Chief Complaint Chief Complaint [id number] respiratory failure - off BIPAP currently. Steroids, nebs, treat pneumonia. Community acquired pneumonia - rocephin + doxy Sepsis - tachy with RR and leukocytosis, this is likely from gram positive or high risk of gram negative/atypical pneumonia with history of COPD. Given IVF. Antibiotics given Acute exacerbation of chronic obstructive pulmonary disease - as above, nebs, steroids Tobacco dependence - counseled. Nicotine patch Murmur - systolic, awaiting TTE. Likely from . Consulted cardiology per pt request HTN: controlled HLD - statin History of Present Illness History of Present Illness Patient with no acute events reported overnight, patient denies fever chills or new complaints. Slowly improving may need placement thought Vitals Vitals Vital Signs Date Time Temp Pulse Resp B/P (MAP) Pulse Ox O2 Delivery O2 Flow Rate FiO2 05/07/18 15:17 90 Nasal Cannula 3.0 05/07/18 15:00 98.4 98 20 133/61 (85) 98.4 Physical Exam General: Alert, Oriented X3, Cooperative, No acute distress Heart: Regular rate (sinus tach), Normal S1, Normal S2, Other (2/6 systolic murmur otherwise no significant murmur) Lungs: Wheezing, Crackles Abdomen: Normal bowel sounds, Soft, No hepatosplenomegaly, No masses Extremities: No clubbing, No cyanosis, No edema, Normal pulses, No tenderness/ swelling Skin: No rashes, No breakdown, No significant lesion Labs LABS Laboratory Tests Test 05/07/18 07:18 05/07/18 11:17 05/07/18 16:23 Glucose (Fingerstick) 122 mg/dL (70-99) 202 mg/dL (70-99) 213 mg/dL (70-99) Assessment and Plan Assessmemt and Plan Problems Medical Problems: (1) COPD exacerbation Status: Acute Comment Review of Relevant I have reviewed the following items zaire (where applicable) has been applied. Labs Laboratory Tests Test 05/06/18 03:10 05/06/18 03:15 05/06/18 12:07 05/06/18 15:45 White Blood Count 11.3 x10^3/uL (4.0-11.0) Red Blood Count 3.76 x10^6/uL (4.30-5.70) Hemoglobin 11.1 g/dL (13.0-17.5) Hematocrit 35.1 % (39.0-53.0) Mean Corpuscular Volume 94 fL (79-100) Mean Corpuscular Hemoglobin 30 pg (25-35) Mean Corpuscular Hemoglobin Concent 32 g/dL (31-37) Red Cell Distribution Width 14.1 % (11.5-14.5) Platelet Count 291 x10^3/uL (140-400) Neutrophils (%) (Auto) 94 % (31-73) Lymphocytes (%) (Auto) 3 % (24-48) Monocytes (%) (Auto) 3 % (0-9) Eosinophils (%) (Auto) 0 % (0-3) Basophils (%) (Auto) 0 % (0-3) Neutrophils # (Auto) 10.6 x10^3uL (1.8-7.7) Lymphocytes # (Auto) 0.3 x10^3/uL (1.0-4.8) Monocytes # (Auto) 0.3 x10^3/uL (0.0-1.1) Eosinophils # (Auto) 0.0 x10^3/uL (0.0-0.7) Basophils # (Auto) 0.0 x10^3/uL (0.0-0.2) Sodium Level 138 mmol/L (136-145) Potassium Level 4.4 mmol/L (3.5-5.1) Chloride Level 97 mmol/L (98-107) Carbon Dioxide Level 43 mmol/L (21-32) Anion Gap -2 (6-14) Blood Urea Nitrogen 19 mg/dL (8-26) Creatinine 0.7 mg/dL (0.7-1.3) Estimated GFR (Cockcroft-Gault) 112.1 Glucose Level 222 mg/dL (70-99) Calcium Level 9.2 mg/dL (8.5-10.1) Glucose (Fingerstick) 234 mg/dL (70-99) O2 Saturation 94 % (92-99) Arterial Blood pH 7.37 (7.35-7.45) Arterial Blood pCO2 at Patient Temp 77 mmHg (35-46) Arterial Blood pO2 at Patient Temp 70 mmHg (65-108) Arterial Blood HCO3 44 mmol/L (21-28) Arterial Blood Base Excess 15 mmol/L (-3-3) FiO2 4 lpm nc Test 05/06/18 16:16 05/07/18 07:18 05/07/18 11:17 05/07/18 16:23 Glucose (Fingerstick) 166 mg/dL (70-99) 122 mg/dL (70-99) 202 mg/dL (70-99) 213 mg/dL (70-99) Laboratory Tests Test 05/07/18 07:18 05/07/18 11:17 05/07/18 16:23 Glucose (Fingerstick) 122 mg/dL (70-99) 202 mg/dL (70-99) 213 mg/dL (70-99) Microbiology 05/03/18 Blood Culture - Preliminary, Resulted NO GROWTH AFTER 3 DAYS Medications Current Medications Albuterol/ Ipratropium (Duoneb) 3 ml 1X ONCE NEB Last administered on 17:01; Start 05/03/18 at 17:15; Stop 05/03/18 at 17:16; Status DC Sodium Chloride 1,000 ml @ 1,000 mls/hr 1X ONCE IV Last administered on 18:00; Start 05/03/18 at 16:45; Stop 05/03/18 at 17:44; Status DC Methylprednisolone Sodium Succinate (SOLU-Medrol 125MG VIAL) 125 mg 1X ONCE IV Last administered on 05/03/18 18:02; Start 05/03/18 at 17:15; Stop 05/03/18 at 17:16; Status DC Ceftriaxone Sodium (Rocephin) 1 gm 1X ONCE IVP Last administered on 05/03/18 18:06; Start 05/03/18 at 17:30; Stop 05/03/18 at 17:31; Status DC Azithromycin 250 ml @ 250 mls/hr 1X ONCE IV Last administered on 05/03/18 18: 11; Start 05/03/18 at 17:30; Stop 05/03/18 at 18:29; Status DC Albuterol/ Ipratropium (Duoneb) 3 ml 1X ONCE NEB Last administered on 19:06; Start 05/03/18 at 19:15; Stop 05/03/18 at 19:16; Status DC Influenza Virus Vaccine (Afluria Trivalent [id number] Syringe) 0.5 ml ONCE ONCE VAX IM Last administered on 05/06/18 09:40; Start 05/03/18 at 20:30; Stop at 20:34; Status DC Albuterol/ Ipratropium (Duoneb) 3 ml RTQID NEB Last administered on 05/07/18 15 :13; Start 05/04/18 at 08:00 Methylprednisolone Sodium Succinate (SOLU-Medrol 40MG VIAL) 40 mg Q12HR IV Last administered on 05/07/18 09:23; Start 05/04/18 at 09:00 Budesonide (Pulmicort) 0.5 mg RTBID NEB Last administered on 05/07/18 07:34; Start 05/04/18 at 08:00 Ceftriaxone Sodium (Rocephin) 1 gm Q24H IVP Last administered on 05/07/18 09:23 ; Start 05/04/18 at 09:00 Doxycycline Hyclate 100 mg/ Dextrose 100 ml @ 50 mls/hr Q12HR IV Last administered on 05/07/18 09:24; Start 05/04/18 at 09:00 Albuterol/ Ipratropium (Duoneb) 3 ml 1X STAT NEB Last administered on 07:58; Start 05/04/18 at 07:49; Stop 05/04/18 at 08:02; Status DC Albuterol Sulfate (Ventolin Neb Soln) 2.5 mg PRN Q4HRS PRN NEB SHORTNESS OF BREATH Last administered on 05/05/18 02:40; Start 05/04/18 at 08:00 Metoprolol Tartrate (Lopressor) 12.5 mg BID PO Last administered on 05/07/18 09 :20; Start 05/04/18 at 09:00 Pantoprazole Sodium (Protonix) 40 mg DAILYAC PO Last administered on 05/07/18 09:19; Start 05/04/18 at 09:00 Potassium Chloride (Klor-Con) 10 meq DAILY PO Last administered on 05/07/18 09: 19; Start 05/04/18 at 09:00 Tamsulosin HCl (Flomax) 0.4 mg DAILY PO Last administered on 05/07/18 09:19; Start 05/04/18 at 09:00 Non-Formulary Medication (Tiotropium [place] (Spiriva)) 1 cap DAILY IH ; Start 05/04/18 at 09:00; Stop 05/04/18 at 09:00; Status DC Guaifenesin (Robitussin Dm) 10 ml PRN Q6HRS PRN PO COUGH Last administered on 09:22; Start 05/04/18 at 08:00 Albuterol/ Ipratropium (Duoneb) 3 ml RTQID NEB ; Start 05/04/18 at 12:00; Stop at 12:00; Status DC Fluticasone Propionate (Flonase) 2 spray DAILY NS Last administered on 09:22; Start 05/04/18 at 14:30 Nicotine (Nicoderm Cq 21mg) 1 patch DAILY TD Last administered on 05/07/18at 11: 55; Start 05/05/18 at 12:15 Lactobacillus Rhamnosus (Culturelle) 1 cap BID PO Last administered on 09:19; Start 05/05/18 at 13:00 Active Scripts Active Doxycycline Hyclate 100 Mg Tablet 100 Mg PO BID Reported Protonix (Pantoprazole Sodium) 40 Mg Tablet.dr 40 Mg PO DAILY Potassium Chloride 10 Meq Capsule.er 10 Meq PO DAILY Lasix (Furosemide) 20 Mg Tablet 1 Tab PO DAILY Albuterol Sulfate Neb Soln (Albuterol Sulfate) 2.5 Mg/3 Ml Vial.neb 1 Vial NEB PRN Q4HRS Advair 500-50 Diskus (Fluticasone/Salmeterol) 1 Each Disk.w.dev 1 Puff IH DAILY Spiriva (Tiotropium [place]) 18 Mcg Cap.w.dev 1 Cap IH DAILY Flomax (Tamsulosin Hcl) 0.4 Mg Cap.er.24h 1 Cap PO DAILY Metoprolol Tartrate 25 Mg Tablet 12.5 Mg PO BID Vitals/I & O Vital Sign - Last 24 Hours 05/06/18 05/06/18 05/06/18 05/06/18 19:00 19:45 19:46 19:53 Temp 97.7 97.7 Pulse 98 Resp 20 B/P (MAP) 160/82 (108) Pulse Ox 95 97 97 O2 Delivery Nasal Cannula Nasal Cannula Nasal Cannula Nasal Cannula O2 Flow Rate 4.0 4.0 4.0 05/06/18 05/06/18 05/06/18 05/06/18 20:17 21:00 21:17 23:00 Temp 97.4 97.4 Pulse 98 57 Resp 18 B/P (MAP) 137/71 135/73 (93) Pulse Ox 95 98 O2 Delivery BiPAP/CPAP BiPAP/CPAP O2 Flow Rate 4.0 05/07/18 05/07/18 05/07/18 05/07/18 03:00 07:00 07:35 08:00 Temp 97.1 98.6 97.1 98.6 Pulse 93 63 Resp 18 17 B/P (MAP) 132/65 (87) 154/55 (88) Pulse Ox 95 97 92 O2 Delivery Nasal Cannula Nasal Cannula Nasal Cannula Nasal Cannula O2 Flow Rate 2.0 2.0 05/07/18 05/07/18 05/07/18 05/07/18 09:20 11:00 11:20 15:00 Temp 97.9 98.4 97.9 98.4 Pulse 63 93 98 Resp 20 20 B/P (MAP) 154/55 143/77 (99) 133/61 (85) Pulse Ox 93 89 94 O2 Delivery Nasal Cannula Nasal Cannula Nasal Cannula O2 Flow Rate 3.0 05/07/18 15:17 Pulse Ox 90 O2 Delivery Nasal Cannula O2 Flow Rate 3.0 Intake and Output 05/06/18 05/06/18 05/07/18 14:59 22:59 06:59 Intake Total 540 ml 460 ml 750 ml Output Total 200 ml 2850 ml Balance 540 ml 260 ml -2100 ml MUSA HOYT MD May 07, 2018 17:07
[2018-05-07 19:00] VITALS: BP 128/59
[2018-05-07 23:00] VITALS: BP 130/75
[2018-05-08 03:00] VITALS: BP 126/68
[2018-05-08 07:00] VITALS: BP 133/82
[2018-05-08] MEDS: BUDESONIDE 0.5 MG/2 ML NEBU. NEB SCH ×2 (07:24→19:54)
[2018-05-08] MEDS: IPRATRPIUM/ALBUTEROL 0.5/2.5MG 3 ML NEBU. NEB SCH ×4 (07:24→19:54)
[2018-05-08] MEDS: PANTOPRAZOLE 40 MG TABLET.DR. PO SCH (07:34)
[2018-05-08] MEDS: NICOTINE 21MG PATCH. TD SCH (07:37)
[2018-05-08] MEDS: cefTRIAXone IV Push 1 GM VIAL. IVP SCH (08:43)
[2018-05-08] MEDS: FLUTICASONE 50MCG/NASAL SPRAY 16GM BOTTLE. NS SCH (08:44)
[2018-05-08] MEDS: POTASSIUM CHLORIDE 10 MEQ TABLET.ER. PO SCH (08:44)
[2018-05-08] MEDS: methylPREDNISolone SOD SUCC PF 40 MG/ML VIAL. IV SCH ×2 (08:44→21:20)
[2018-05-08] MEDS: TAMSULOSIN 0.4 MG CAP.ER.24H. PO SCH (08:44)
[2018-05-08] MEDS: LACTOBACILLUS RHAMNOSUS GG 1 CAPSULE. PO SCH ×2 (08:44→21:20)
[2018-05-08] MEDS: METOPROLOL TART IMMED RELEASE 25 MG TABLET. PO SCH ×2 (08:45→21:20)
[2018-05-08] MEDS: DOXYCYCLINE HYCLATE 100 MG in IV DEXTROSE 5% 100ML 100 ML IV SCH ×2 (08:46→21:21)
--- NOTE | 2018-05-08 08:46 | PDOC ---
PULMONARY PROGRESS NOTES Subjective still has sob, cough, no pain, on home 02 Vitals Vital Signs Date Time Temp Pulse Resp B/P (MAP) Pulse Ox O2 Delivery O2 Flow Rate FiO2 05/08/18 07:25 96 Nasal Cannula 3.0 05/08/18 03:00 98.3 89 20 126/68 (87) 98.3 ROS: No Nausea, No Chest Pain, No Abdominal Pain, No Increase Cough General: Alert Lungs: Wheezing, Crackles Cardiovascular: S1, S2 Abdomen: Soft, Non-tender Neuro Exam: Alert Extremities: No Edema Skin: Warm Labs Laboratory Tests Test 05/06/18 12:07 05/06/18 15:45 05/06/18 16:16 05/07/18 07:18 Glucose (Fingerstick) 234 mg/dL (70-99) 166 mg/dL (70-99) 122 mg/dL (70-99) O2 Saturation 94 % (92-99) Arterial Blood pH 7.37 (7.35-7.45) Arterial Blood pCO2 at Patient Temp 77 mmHg (35-46) Arterial Blood pO2 at Patient Temp 70 mmHg (65-108) Arterial Blood HCO3 44 mmol/L (21-28) Arterial Blood Base Excess 15 mmol/L (-3-3) FiO2 4 lpm nc Test 05/07/18 11:17 05/07/18 16:23 05/07/18 20:51 05/08/18 07:54 Glucose (Fingerstick) 202 mg/dL (70-99) 213 mg/dL (70-99) 161 mg/dL (70-99) 117 mg/dL (70-99) Laboratory Tests Test 05/07/18 11:17 05/07/18 16:23 05/07/18 20:51 05/08/18 07:54 Glucose (Fingerstick) 202 mg/dL (70-99) 213 mg/dL (70-99) 161 mg/dL (70-99) 117 mg/dL (70-99) Medications Active Scripts Medications Dose Route/Sig Max Daily Dose Days Date Category Dose Instructions Doxycycline Hyclate 100 Mg Tablet 100 Mg PO BID 04/16/16 Rx Prednisone (Prednisone) 10 Mg Tablet 10 Mg PO UD 04/16/16 Rx Take 4 tablets by mouth daily for 5 days, then take 3 tablets by mouth daily for 5 days, then resume home dose of prednisone Protonix (Pantoprazole Sodium) 40 Mg Tablet.dr 40 Mg PO DAILY 11/18/15 Reported Potassium Chloride 10 Meq Capsule.er 10 Meq PO DAILY 11/18/15 Reported Lasix (Furosemide) 20 Mg Tablet 1 Tab PO DAILY 11/18/15 Reported Prednisone (Prednisone) 10 Mg Tablet 10 Mg PO UD 10/15/15 Rx Take 4 tablets by mouth daily for 3 days, then take 3 tablets by mouth daily for 3 days, then take 2 tablet by mouth daily for 3 days, then take 1 tablet by mouth daily x 3 days, then stop. Albuterol Sulfate Neb Soln (Albuterol Sulfate) 2.5 Mg/3 Ml Vial.neb 1 Vial NEB PRN Q4HRS 10/11/15 Reported Advair 500-50 Diskus (Fluticasone/Salmeterol) 1 Each Disk.w.dev 1 Puff IH DAILY 10/11/15 Reported Spiriva (Tiotropium [place]) 18 Mcg Cap.w.dev 1 Cap IH DAILY 10/11/15 Reported Flomax (Tamsulosin Hcl) 0.4 Mg Cap.er.24h 1 Cap PO DAILY 10/11/15 Reported Metoprolol Tartrate 25 Mg Tablet 12.5 Mg PO BID 10/11/15 Reported Impression . IMPRESSION: 1. Acute on chronic hypoxemic hypercapnic respiratory failure. 2. Pneumonia, suspect gram-negative, gram-positive. 3. Pulmonary fibrosis. 4. Tobacco dependence. 5. Gastroesophageal reflux. 6. copd w ae Plan . bipap prn during day and cont at night 02 titration BD, ICS cont solumedrol bid, no dose change increase activity advised to quit smoking for ever discussed w pt and rn MARITZA JAMES MD May 08, 2018 08:46
[2018-05-08 11:00] VITALS: BP 144/76
[2018-05-08] MEDS ORDERED: LIDO:MAALOX:BENADRYL 1:1:1 180 ML BOTTLE. PO PRN ×2 (12:45→13:45)
--- NOTE | 2018-05-08 13:48 | PDOC ---
PROGRESS NOTES Chief Complaint Chief Complaint [id number] respiratory failure - off BIPAP currently. Steroids, nebs, treat pneumonia. Community acquired pneumonia - rocephin + doxy Sepsis - tachy with RR and leukocytosis, this is likely from gram positive or high risk of gram negative/atypical pneumonia with history of COPD. Given IVF. Antibiotics given Acute exacerbation of chronic obstructive pulmonary disease - as above, nebs, steroids Tobacco dependence - counseled. Nicotine patch Murmur - systolic, awaiting TTE. Likely from . Consulted cardiology per pt request HTN: controlled HLD - statin History of Present Illness History of Present Illness Patient with no acute events reported overnight, patient denies fever chills or new complaints. Slowly improving may need placement thought, patient today requesting to be put back on his BiPAP after he went for ambulation. Unfortunately the patient has very little capacity most likely will require placement ones were done with this hospital stay. Pulmonary outbound sales consultant recommendations greatly appreciated Vitals Vitals Vital Signs Date Time Temp Pulse Resp B/P (MAP) Pulse Ox O2 Delivery O2 Flow Rate FiO2 05/08/18 11:17 96 BiPAP/CPAP 05/08/18 11:16 3.0 05/08/18 11:00 97.5 104 28 144/76 (98) 97.5 Physical Exam General: Alert, Oriented X3, Cooperative, No acute distress Heart: Regular rate (sinus tach), Normal S1, Normal S2, Other (2/6 systolic murmur otherwise no significant murmur) Lungs: Wheezing, Crackles Abdomen: Normal bowel sounds, Soft, No hepatosplenomegaly, No masses Extremities: No clubbing, No cyanosis, No edema, Normal pulses, No tenderness/ swelling Skin: No rashes, No breakdown, No significant lesion Labs LABS Laboratory Tests Test 05/07/18 16:23 05/07/18 20:51 05/08/18 07:54 Glucose (Fingerstick) 213 mg/dL (70-99) 161 mg/dL (70-99) 117 mg/dL (70-99) Review of Systems Review of Systems Review of systems except for history of present illness Assessment and Plan Assessmemt and Plan Problems Medical Problems: (1) COPD exacerbation Status: Acute Comment Review of Relevant I have reviewed the following items zaire (where applicable) has been applied. Labs Laboratory Tests Test 05/06/18 15:45 05/06/18 16:16 3/8/19 07:18 05/07/18 11:17 O2 Saturation 94 % (92-99) Arterial Blood pH 7.37 (7.35-7.45) Arterial Blood pCO2 at Patient Temp 77 mmHg (35-46) Arterial Blood pO2 at Patient Temp 70 mmHg (65-108) Arterial Blood HCO3 44 mmol/L (21-28) Arterial Blood Base Excess 15 mmol/L (-3-3) FiO2 4 lpm nc Glucose (Fingerstick) 166 mg/dL (70-99) 122 mg/dL (70-99) 202 mg/dL (70-99) Test 05/07/18 16:23 05/07/18 20:51 05/08/18 07:54 Glucose (Fingerstick) 213 mg/dL (70-99) 161 mg/dL (70-99) 117 mg/dL (70-99) Laboratory Tests Test 05/07/18 16:23 05/07/18 20:51 05/08/18 07:54 Glucose (Fingerstick) 213 mg/dL (70-99) 161 mg/dL (70-99) 117 mg/dL (70-99) Microbiology 05/03/18 Blood Culture - Preliminary, Resulted NO GROWTH AFTER 4 DAYS Medications Current Medications Albuterol/ Ipratropium (Duoneb) 3 ml 1X ONCE NEB Last administered on at 17:01; Start 05/03/18 at 17:15; Stop 05/03/18 at 17:16; Status DC Sodium Chloride 1,000 ml @ 1,000 mls/hr 1X ONCE IV Last administered on at 18:00; Start 05/03/18 at 16:45; Stop 05/03/18 at 17:44; Status DC Methylprednisolone Sodium Succinate (SOLU-Medrol 125MG VIAL) 125 mg 1X ONCE IV Last administered on 05/03/18at 18:02; Start 05/03/18 at 17:15; Stop 05/03/18 at 17:16; Status DC Ceftriaxone Sodium (Rocephin) 1 gm 1X ONCE IVP Last administered on 05/03/18at 18:06; Start 05/03/18 at 17:30; Stop 05/03/18 at 17:31; Status DC Azithromycin 250 ml @ 250 mls/hr 1X ONCE IV Last administered on 05/03/18 18: 11; Start 05/03/18 at 17:30; Stop 05/03/18 at 18:29; Status DC Albuterol/ Ipratropium (Duoneb) 3 ml 1X ONCE NEB Last administered on 19:06; Start 05/03/18 at 19:15; Stop 05/03/18 at 19:16; Status DC Influenza Virus Vaccine (Afluria Trivalent [id number] Syringe) 0.5 ml ONCE ONCE VAX IM Last administered on 05/06/18 09:40; Start 05/03/18 at 20:30; Stop at 20:34; Status DC Albuterol/ Ipratropium (Duoneb) 3 ml RTQID NEB Last administered on 05/08/18 11 :14; Start 05/04/18 at 08:00 Methylprednisolone Sodium Succinate (SOLU-Medrol 40MG VIAL) 40 mg Q12HR IV Last administered on 05/08/18 08:44; Start 05/04/18 at 09:00 Budesonide (Pulmicort) 0.5 mg RTBID NEB Last administered on 05/08/18 07:24; Start 05/04/18 at 08:00 Ceftriaxone Sodium (Rocephin) 1 gm Q24H IVP Last administered on 05/08/18 08:43 ; Start 05/04/18 at 09:00 Doxycycline Hyclate 100 mg/ Dextrose 100 ml @ 50 mls/hr Q12HR IV Last administered on 05/08/18 08:46; Start 05/04/18 at 09:00 Albuterol/ Ipratropium (Duoneb) 3 ml 1X STAT NEB Last administered on 07:58; Start 05/04/18 at 07:49; Stop 05/04/18 at 08:02; Status DC Albuterol Sulfate (Ventolin Neb Soln) 2.5 mg PRN Q4HRS PRN NEB SHORTNESS OF BREATH Last administered on 05/05/18 02:40; Start 05/04/18 at 08:00 Metoprolol Tartrate (Lopressor) 12.5 mg BID PO Last administered on 05/08/18 08 :45; Start 05/04/18 at 09:00 Pantoprazole Sodium (Protonix) 40 mg DAILYAC PO Last administered on 05/08/18 07:34; Start 05/04/18 at 09:00 Potassium Chloride (Klor-Con) 10 meq DAILY PO Last administered on 05/08/18 08: 44; Start 05/04/18 at 09:00 Tamsulosin HCl (Flomax) 0.4 mg DAILY PO Last administered on 05/08/18 08:44; Start 05/04/18 at 09:00 Non-Formulary Medication (Tiotropium [place] (Spiriva)) 1 cap DAILY IH ; Start 05/04/18 at 09:00; Stop 05/04/18 at 09:00; Status DC Guaifenesin (Robitussin Dm) 10 ml PRN Q6HRS PRN PO COUGH Last administered on 09:22; Start 05/04/18 at 08:00 Albuterol/ Ipratropium (Duoneb) 3 ml RTQID NEB ; Start 05/04/18 at 12:00; Stop at 12:00; Status DC Fluticasone Propionate (Flonase) 2 spray DAILY NS Last administered on 08:44; Start 05/04/18 at 14:30 Nicotine (Nicoderm Cq 21mg) 1 patch DAILY TD Last administered on 05/08/18 07: 37; Start 05/05/18 at 12:15 Lactobacillus Rhamnosus (Culturelle) 1 cap BID PO Last administered on 08:44; Start 05/05/18 at 13:00 Multi-Ingredient Mouthwash/Gargle (Magic Mouthwash) 10 ml PRN QID PRN PO MOUTH PAIN; Start 05/08/18 at 12:45 Active Scripts Active Doxycycline Hyclate 100 Mg Tablet 100 Mg PO BID Reported Protonix (Pantoprazole Sodium) 40 Mg Tablet.dr 40 Mg PO DAILY Potassium Chloride 10 Meq Capsule.er 10 Meq PO DAILY Lasix (Furosemide) 20 Mg Tablet 1 Tab PO DAILY Albuterol Sulfate Neb Soln (Albuterol Sulfate) 2.5 Mg/3 Ml Vial.neb 1 Vial NEB PRN Q4HRS Advair 500-50 Diskus (Fluticasone/Salmeterol) 1 Each Disk.w.dev 1 Puff IH DAILY Spiriva (Tiotropium [place]) 18 Mcg Cap.w.dev 1 Cap IH DAILY Flomax (Tamsulosin Hcl) 0.4 Mg Cap.er.24h 1 Cap PO DAILY Metoprolol Tartrate 25 Mg Tablet 12.5 Mg PO BID Vitals/I & O Vital Sign - Last 24 Hours 05/07/18 05/07/18 05/07/18 05/07/18 15:00 15:17 19:00 19:51 Temp 98.4 98.3 98.4 98.3 Pulse 98 105 Resp 20 20 B/P (MAP) 133/61 (85) 128/59 (82) Pulse Ox 94 90 91 91 O2 Delivery Nasal Cannula Nasal Cannula Nasal Cannula Nasal Cannula O2 Flow Rate 3.0 3.0 05/07/18 05/07/18 05/07/18 05/07/18 20:06 20:54 21:26 21:46 Pulse 105 B/P (MAP) 128/59 Pulse Ox 93 O2 Delivery Nasal Cannula BiPAP/CPAP O2 Flow Rate 3.0 3.0 05/07/18 05/08/18 05/08/18 05/08/18 23:00 03:00 07:00 07:25 Temp 98.3 98.3 97.7 98.3 98.3 97.7 Pulse 90 89 97 Resp 20 20 20 B/P (MAP) 130/75 (93) 126/68 (87) 133/82 (99) Pulse Ox 91 94 94 96 O2 Delivery Nasal Cannula Nasal Cannula Nasal Cannula Nasal Cannula O2 Flow Rate 3.0 3.0 05/08/18 05/08/18 05/08/18 05/08/18 07:25 08:00 08:45 11:00 Temp 97.5 97.5 Pulse 97 104 Resp 28 B/P (MAP) 133/82 144/76 (98) Pulse Ox 96 91 O2 Delivery Nasal Cannula Nasal Cannula O2 Flow Rate 3.0 2.0 3.0 05/08/18 05/08/18 11:16 11:17 Pulse Ox 94 96 O2 Delivery Nasal Cannula BiPAP/CPAP O2 Flow Rate 3.0 Intake and Output 05/07/18 05/07/18 05/08/18 15:00 23:00 07:00 Intake Total 690 ml 950 ml 1000 ml Output Total 750 ml Balance 690 ml 950 ml 250 ml MUSA HOYT MD May 08, 2018 13:47
[2018-05-08 15:00] VITALS: BP 126/73
[2018-05-08] MEDS ORDERED: DEXTROSE 50% 25 GM / 50ML DISP.SYRIN. IV PRN (17:15)
[2018-05-08] MEDS ORDERED: INSULIN LISPRO 300 UNITS/3 ML INSULN.PEN. SQ ONE (17:15)
--- NOTE | 2018-05-08 17:27 | NUR ---
Patient blood sugar [address] Olson, see nursing communication and orders, patient verb. understanding medication, side effects to report and POC.
[2018-05-08 19:00] VITALS: BP 129/65
[2018-05-08 23:04] VITALS: BP 111/52
[2018-05-09 03:37] VITALS: BP 134/80
[2018-05-09 07:00] VITALS: BP 136/74
[2018-05-09] MEDS: BUDESONIDE 0.5 MG/2 ML NEBU. NEB SCH ×2 (07:27→19:36)
[2018-05-09] MEDS: IPRATRPIUM/ALBUTEROL 0.5/2.5MG 3 ML NEBU. NEB SCH ×4 (07:27→19:36)
[2018-05-09] MEDS: PANTOPRAZOLE 40 MG TABLET.DR. PO SCH (07:30)
[2018-05-09] MEDS: INSULIN LISPRO 300 UNITS/3 ML INSULN.PEN. SQ SCH ×3 (07:34→16:53)
--- NOTE | 2018-05-09 08:08 | PDOC ---
PROGRESS NOTES Chief Complaint Chief Complaint Fcfqk-rx-szycidw respiratory failure - off BIPAP currently. Steroids, nebs, treat pneumonia. Community acquired pneumonia - rocephin + doxy Sepsis - tachy with RR and leukocytosis, this is likely from gram positive or high risk of gram negative/atypical pneumonia with history of COPD. Given IVF. Antibiotics given Acute exacerbation of chronic obstructive pulmonary disease - as above, nebs, steroids Tobacco dependence - counseled. Nicotine patch Murmur - systolic, awaiting TTE. Likely from . Consulted cardiology per pt request HTN: controlled HLD - statin History of Present Illness History of Present Illness 65-year-old smoker with COPD, who started having respiratory symptoms about 2 weeks ago. He relates that between coughing, shortness of breath, sneezing and nasal dripping, symptoms were essentially getting worse and worse. He does have COPD and is home O2 dependent on 2 liters. This, however, does not keep him from smoking on a regular basis. His breathing even at rest has been getting worse. Cough is significant. He denied any fevers or chills over the past couple of weeks. Denies any sick contact. Did not have the flu vaccine. POC rapid flu testing negative Per EMS patient was dropped off at the fire station with oxygenation of 68% and was cyanotic around the lips. Patient is O2 dependent with history of COPD. EMS administered DuoNeb with improved symptoms prior to arrival to ER. On arrival patient is on oxygen via nasal cannula with O2 sat of 89-90%, however he was continuing to have increased respirations and desaturations. Placed on BIPAP after my eval 17/10 with rate of 18 and FI02 of 60%. Patient with no acute events reported overnight, patient denies fever chills or new complaints. Slowly improving may need placement thought, patient today requesting to be put back on his BiPAP after he went for ambulation. Labs stable today. BUN up, however. Hb improved Plan: Unfortunately the patient has very little residual lung capacity most likely will require placement ones were done with this hospital stay. He almost needs LTAC with how frequently he requires BIPAP he is almost purely dependent on it. Pulmonary siebel consultant recommendations greatly appreciated Vitals Vitals Vital Signs Date Time Temp Pulse Resp B/P (MAP) Pulse Ox O2 Delivery O2 Flow Rate FiO2 05/09/18 07:29 94 Nasal Cannula 2.0 05/09/18 03:37 97.5 97 20 134/80 (98) 97.5 Physical Exam General: Alert, Oriented X3, Cooperative, No acute distress Heart: Regular rate (sinus tach), Normal S1, Normal S2, Other (2/6 systolic murmur otherwise no significant murmur) Lungs: Wheezing, Crackles Abdomen: Normal bowel sounds, Soft, No hepatosplenomegaly, No masses Extremities: No clubbing, No cyanosis, No edema, Normal pulses, No tenderness/ swelling Skin: No rashes, No breakdown, No significant lesion Labs LABS Laboratory Tests Test 05/08/18 11:44 05/08/18 16:45 05/08/18 20:11 05/09/18 07:32 Glucose (Fingerstick) 197 mg/dL (70-99) 257 mg/dL (70-99) 190 mg/dL (70-99) 139 mg/dL (70-99) Assessment and Plan Assessmemt and Plan Problems Medical Problems: (1) COPD exacerbation Status: Acute Comment Review of Relevant I have reviewed the following items zaire (where applicable) has been applied. Labs Laboratory Tests Test 05/07/18 11:17 05/07/18 16:23 05/07/18 20:51 05/08/18 07:54 Glucose (Fingerstick) 202 mg/dL (70-99) 213 mg/dL (70-99) 161 mg/dL (70-99) 117 mg/dL (70-99) Test 05/08/18 11:44 05/08/18 16:45 05/08/18 20:11 05/09/18 07:32 Glucose (Fingerstick) 197 mg/dL (70-99) 257 mg/dL (70-99) 190 mg/dL (70-99) 139 mg/dL (70-99) Laboratory Tests Test 05/08/18 11:44 05/08/18 16:45 05/08/18 20:11 05/09/18 07:32 Glucose (Fingerstick) 197 mg/dL (70-99) 257 mg/dL (70-99) 190 mg/dL (70-99) 139 mg/dL (70-99) Microbiology 05/03/18 Blood Culture - Final, Complete NO GROWTH AFTER 5 DAYS Medications Current Medications Albuterol/ Ipratropium (Duoneb) 3 ml 1X ONCE NEB Last administered on 17:01; Start 05/03/18 at 17:15; Stop 05/03/18 at 17:16; Status DC Sodium Chloride 1,000 ml @ 1,000 mls/hr 1X ONCE IV Last administered on 18:00; Start 05/03/18 at 16:45; Stop 05/03/18 at 17:44; Status DC Methylprednisolone Sodium Succinate (SOLU-Medrol 125MG VIAL) 125 mg 1X ONCE IV Last administered on 05/03/18 18:02; Start 05/03/18 at 17:15; Stop 05/03/18 at 17:16; Status DC Ceftriaxone Sodium (Rocephin) 1 gm 1X ONCE IVP Last administered on 05/03/18 18:06; Start 05/03/18 at 17:30; Stop 05/03/18 at 17:31; Status DC Azithromycin 250 ml @ 250 mls/hr 1X ONCE IV Last administered on 05/03/18 18: 11; Start 05/03/18 at 17:30; Stop 05/03/18 at 18:29; Status DC Albuterol/ Ipratropium (Duoneb) 3 ml 1X ONCE NEB Last administered on 19:06; Start 05/03/18 at 19:15; Stop 05/03/18 at 19:16; Status DC Influenza Virus Vaccine (Afluria Trivalent [id number] Syringe) 0.5 ml ONCE ONCE VAX IM Last administered on 05/06/18 09:40; Start 05/03/18 at 20:30; Stop at 20:34; Status DC Albuterol/ Ipratropium (Duoneb) 3 ml RTQID NEB Last administered on 05/09/18 07:27; Start 05/04/18 at 08:00 Methylprednisolone Sodium Succinate (SOLU-Medrol 40MG VIAL) 40 mg Q12HR IV Last administered on 05/08/18 21:20; Start 05/04/18 at 09:00 Budesonide (Pulmicort) 0.5 mg RTBID NEB Last administered on 05/09/18 07:27; Start 05/04/18 at 08:00 Ceftriaxone Sodium (Rocephin) 1 gm Q24H IVP Last administered on 05/08/18 08:43 ; Start 05/04/18 at 09:00 Doxycycline Hyclate 100 mg/ Dextrose 100 ml @ 50 mls/hr Q12HR IV Last administered on 05/08/18 21:21; Start 05/04/18 at 09:00 Albuterol/ Ipratropium (Duoneb) 3 ml 1X STAT NEB Last administered on 07:58; Start 05/04/18 at 07:49; Stop 05/04/18 at 08:02; Status DC Albuterol Sulfate (Ventolin Neb Soln) 2.5 mg PRN Q4HRS PRN NEB SHORTNESS OF BREATH Last administered on 05/05/18 02:40; Start 05/04/18 at 08:00 Metoprolol Tartrate (Lopressor) 12.5 mg BID PO Last administered on 05/08/18 21 :20; Start 05/04/18 at 09:00 Pantoprazole Sodium (Protonix) 40 mg DAILYAC PO Last administered on 05/09/18 07:30; Start 05/04/18 at 09:00 Potassium Chloride (Klor-Con) 10 meq DAILY PO Last administered on 05/08/18 08: 44; Start 05/04/18 at 09:00 Tamsulosin HCl (Flomax) 0.4 mg DAILY PO Last administered on 05/08/18 08:44; Start 05/04/18 at 09:00 Non-Formulary Medication (Tiotropium [place] (Spiriva)) 1 cap DAILY IH ; Start 05/04/18 at 09:00; Stop 05/04/18 at 09:00; Status DC Guaifenesin (Robitussin Dm) 10 ml PRN Q6HRS PRN PO COUGH Last administered on 09:22; Start 05/04/18 at 08:00 Albuterol/ Ipratropium (Duoneb) 3 ml RTQID NEB ; Start 05/04/18 at 12:00; Stop at 12:00; Status DC Fluticasone Propionate (Flonase) 2 spray DAILY NS Last administered on 08:44; Start 05/04/18 at 14:30 Nicotine (Nicoderm Cq 21mg) 1 patch DAILY TD Last administered on 05/08/18at 07: 37; Start 05/05/18 at 12:15 Lactobacillus Rhamnosus (Culturelle) 1 cap BID PO Last administered on at 21:20; Start 05/05/18 at 13:00 Multi-Ingredient Mouthwash/Gargle (Magic Mouthwash) 10 ml PRN QID PRN PO MOUTH PAIN; Start 05/08/18 at 12:45; Status Cancel Multi-Ingredient Mouthwash/Gargle (Magic Mouthwash) 10 ml PRN QID PRN PO MOUTH PAIN Last administered on 05/08/18at 16:56; Start 05/08/18 at 13:45 Insulin Human Lispro (HumaLOG) 4 units 1X ONCE SQ Last administered on at 17:21; Start 05/08/18 at 17:15; Stop 05/08/18 at 17:16; Status DC Insulin Human Lispro (HumaLOG) 0-5 UNITS TIDWMEALS SQ ; Start 05/09/18 at 08:00 Dextrose (Dextrose 50%-Water Syringe) 12.5 gm PRN Q15MIN PRN IV SEE COMMENTS; Start 05/08/18 at 17:15 Active Scripts Active Doxycycline Hyclate 100 Mg Tablet 100 Mg PO BID Reported Protonix (Pantoprazole Sodium) 40 Mg Tablet.dr 40 Mg PO DAILY Potassium Chloride 10 Meq Capsule.er 10 Meq PO DAILY Lasix (Furosemide) 20 Mg Tablet 1 Tab PO DAILY Albuterol Sulfate Neb Soln (Albuterol Sulfate) 2.5 Mg/3 Ml Vial.neb 1 Vial NEB PRN Q4HRS Advair 500-50 Diskus (Fluticasone/Salmeterol) 1 Each Disk.w.dev 1 Puff IH DAILY Spiriva (Tiotropium [place]) 18 Mcg Cap.w.dev 1 Cap IH DAILY Flomax (Tamsulosin Hcl) 0.4 Mg Cap.er.24h 1 Cap PO DAILY Metoprolol Tartrate 25 Mg Tablet 12.5 Mg PO BID Vitals/I & O Vital Sign - Last 24 Hours 05/08/18 05/08/18 05/08/18 05/08/18 08:45 11:00 11:16 11:17 Temp 97.5 97.5 Pulse 97 104 Resp 28 B/P (MAP) 133/82 144/76 (98) Pulse Ox 91 94 96 O2 Delivery Nasal Cannula Nasal Cannula BiPAP/CPAP O2 Flow Rate 3.0 3.0 05/08/18 05/08/18 05/08/18 05/08/18 15:00 15:47 19:00 19:55 Temp 97.8 97.8 97.8 97.8 Pulse 97 88 Resp 24 20 B/P (MAP) 126/73 (90) 129/65 (86) Pulse Ox 95 94 94 O2 Delivery Nasal Cannula Nasal Cannula Nasal Cannula Nasal Cannula O2 Flow Rate 3.0 3.0 3.0 05/08/18 05/08/18 05/08/18 05/08/18 19:55 20:05 21:00 21:20 Pulse 88 B/P (MAP) 129/65 Pulse Ox 94 O2 Delivery Nasal Cannula Nasal Cannula O2 Flow Rate 3.0 3.0 3.0 05/08/18 05/09/18 05/09/18 05/09/18 23:04 00:04 01:59 03:37 Temp 98.5 97.5 98.5 97.5 Pulse 68 97 Resp 20 20 B/P (MAP) 111/52 (71) 134/80 (98) Pulse Ox 94 91 O2 Delivery Nasal Cannula BiPAP/CPAP BiPAP/CPAP Nasal Cannula 05/09/18 05/09/18 05:03 07:29 Pulse Ox 94 O2 Delivery BiPAP/CPAP Nasal Cannula O2 Flow Rate 2.0 Intake and Output 05/08/18 05/08/18 05/09/18 15:00 23:00 07:00 Intake Total 1040 ml 180 ml Output Total 110 ml 100 ml 500 ml Balance 930 ml 80 ml -500 ml EVGENY ELIZABETH MD May 09, 2018 08:08
[2018-05-09] MEDS: NICOTINE 21MG PATCH. TD SCH (08:36)
[2018-05-09] MEDS: FLUTICASONE 50MCG/NASAL SPRAY 16GM BOTTLE. NS SCH (08:36)
[2018-05-09] MEDS: cefTRIAXone IV Push 1 GM VIAL. IVP SCH (08:36)
[2018-05-09] MEDS: methylPREDNISolone SOD SUCC PF 40 MG/ML VIAL. IV SCH (08:37)
[2018-05-09] MEDS: POTASSIUM CHLORIDE 10 MEQ TABLET.ER. PO SCH (08:37)
[2018-05-09] MEDS: TAMSULOSIN 0.4 MG CAP.ER.24H. PO SCH (08:37)
[2018-05-09] MEDS: DOXYCYCLINE HYCLATE 100 MG in IV DEXTROSE 5% 100ML 100 ML IV SCH ×2 (08:37→21:22)
[2018-05-09] MEDS: LACTOBACILLUS RHAMNOSUS GG 1 CAPSULE. PO SCH ×2 (08:37→21:21)
[2018-05-09] MEDS: METOPROLOL TART IMMED RELEASE 25 MG TABLET. PO SCH ×2 (08:43→21:21)
--- NOTE | 2018-05-09 09:33 | PDOC ---
PULMONARY PROGRESS NOTES Subjective sob, cough better, no pain, on home 02, has bipap at home Vitals Vital Signs Date Time Temp Pulse Resp B/P (MAP) Pulse Ox O2 Delivery O2 Flow Rate FiO2 05/09/18 08:43 99 136/74 05/09/18 07:29 94 Nasal Cannula 2.0 05/09/18 07:00 98.9 20 98.9 ROS: No Nausea, No Chest Pain, No Abdominal Pain, No Increase Cough General: Alert Lungs: Other (a few end exp wheezing, better air movement) Cardiovascular: S1, S2 Abdomen: Soft, Non-tender Neuro Exam: Alert Extremities: No Edema Skin: Warm Labs Laboratory Tests Test 05/07/18 11:17 05/07/18 16:23 05/07/18 20:51 05/08/18 07:54 Glucose (Fingerstick) 202 mg/dL (70-99) 213 mg/dL (70-99) 161 mg/dL (70-99) 117 mg/dL (70-99) Test 05/08/18 11:44 05/08/18 16:45 05/08/18 20:11 05/09/18 07:32 Glucose (Fingerstick) 197 mg/dL (70-99) 257 mg/dL (70-99) 190 mg/dL (70-99) 139 mg/dL (70-99) Laboratory Tests Test 05/08/18 11:44 05/08/18 16:45 05/08/18 20:11 05/09/18 07:32 Glucose (Fingerstick) 197 mg/dL (70-99) 257 mg/dL (70-99) 190 mg/dL (70-99) 139 mg/dL (70-99) Medications Active Scripts Medications Dose Route/Sig Max Daily Dose Days Date Category Dose Instructions Doxycycline Hyclate 100 Mg Tablet 100 Mg PO BID 04/16/16 Rx Prednisone (Prednisone) 10 Mg Tablet 10 Mg PO UD 04/16/16 Rx Take 4 tablets by mouth daily for 5 days, then take 3 tablets by mouth daily for 5 days, then resume home dose of prednisone Protonix (Pantoprazole Sodium) 40 Mg Tablet.dr 40 Mg PO DAILY 11/18/15 Reported Potassium Chloride 10 Meq Capsule.er 10 Meq PO DAILY 11/18/15 Reported Lasix (Furosemide) 20 Mg Tablet 1 Tab PO DAILY 11/18/15 Reported Prednisone (Prednisone) 10 Mg Tablet 10 Mg PO UD 10/15/15 Rx Take 4 tablets by mouth daily for 3 days, then take 3 tablets by mouth daily for 3 days, then take 2 tablet by mouth daily for 3 days, then take 1 tablet by mouth daily x 3 days, then stop. Albuterol Sulfate Neb Soln (Albuterol Sulfate) 2.5 Mg/3 Ml Vial.neb 1 Vial NEB PRN Q4HRS 10/11/15 Reported Advair 500-50 Diskus (Fluticasone/Salmeterol) 1 Each Disk.w.dev 1 Puff IH DAILY 10/11/15 Reported Spiriva (Tiotropium [place]) 18 Mcg Cap.w.dev 1 Cap IH DAILY 10/11/15 Reported Flomax (Tamsulosin Hcl) 0.4 Mg Cap.er.24h 1 Cap PO DAILY 10/11/15 Reported Metoprolol Tartrate 25 Mg Tablet 12.5 Mg PO BID 10/11/15 Reported Impression . IMPRESSION: 1. Acute on chronic hypoxemic hypercapnic respiratory failure. 2. Pneumonia, suspect gram-negative, gram-positive. 3. Pulmonary fibrosis. 4. Tobacco dependence. 5. Gastroesophageal reflux. 6. copd w ae Plan . bipap prn during day and cont at night 02 titration BD, ICS change solumedrol to prednisone 40 mg daily w taper by 10 mg q 3d increase activity advised to quit smoking for ever discussed w pt and rn MARITZA JAMES MD May 09, 2018 09:33
[2018-05-09 10:15] LABS: BASO % 0 % (0-3); EOS % 0 % (0-3); HEMATOCRIT 41.8 % (39.0-53.0); HEMOGLOBIN 13.3 g/dL (13.0-17.5); LYMPH # 0.6 x10^3/uL (1.0-4.8); LYMPH % 5 % (24-48); MEAN CORPUSCULAR HEMOGLOBIN 30 pg (25-35); MEAN CORPUSCULAR HGB CONC 32 g/dL (31-37); MEAN CORPUSCULAR VOLUME 93 fL (79-100); MONO # 0.4 x10^3/uL (0.0-1.1); MONO % 3 % (0-9); NEUT # 11.7 x10^3uL (1.8-7.7); NEUT % 92 % (31-73); PLATELET COUNT 370 x10^3/uL (140-400); WHITE BLOOD COUNT 12.7 x10^3/uL (4.0-11.0)
[2018-05-09 10:36] LABS: CREATININE 0.8 mg/dL (0.7-1.3); GFR 96.1; POTASSIUM 4.6 mmol/L (3.5-5.1)
[2018-05-09 11:00] VITALS: BP 140/74
[2018-05-09 15:00] VITALS: BP 124/76
[2018-05-09 19:00] VITALS: BP 135/73
[2018-05-09] MEDS ORDERED: DOCUSATE SODIUM 100 MG CAPSULE. PO PRN (19:30)
[2018-05-09 23:05] VITALS: BP 134/75
[2018-05-10 03:05] VITALS: BP 136/79
[2018-05-10] MEDS: PANTOPRAZOLE 40 MG TABLET.DR. PO SCH ×2 (05:33→10:25)
[2018-05-10 07:00] VITALS: BP 128/77
[2018-05-10 07:13] LABS: CALCIUM 9.3 mg/dL (8.5-10.1); CREATININE 0.6 mg/dL (0.7-1.3); POTASSIUM 4.9 mmol/L (3.5-5.1)
[2018-05-10] MEDS: INSULIN LISPRO 300 UNITS/3 ML INSULN.PEN. SQ SCH ×2 (08:00→12:00)
[2018-05-10] MEDS: IPRATRPIUM/ALBUTEROL 0.5/2.5MG 3 ML NEBU. NEB SCH ×2 (08:53→12:46)
[2018-05-10] MEDS: BUDESONIDE 0.5 MG/2 ML NEBU. NEB SCH (08:53)
[2018-05-10] MEDS ORDERED: predniSONE 20 MG TABLET PO SCH (09:00)
[2018-05-10] MEDS: METOPROLOL TART IMMED RELEASE 25 MG TABLET. PO SCH (10:24)
[2018-05-10] MEDS: LACTOBACILLUS RHAMNOSUS GG 1 CAPSULE. PO SCH (10:25)
[2018-05-10] MEDS: POTASSIUM CHLORIDE 10 MEQ TABLET.ER. PO SCH (10:25)
[2018-05-10] MEDS: TAMSULOSIN 0.4 MG CAP.ER.24H. PO SCH (10:29)
[2018-05-10] MEDS: NICOTINE 21MG PATCH. TD SCH (10:30)
[2018-05-10] MEDS: FLUTICASONE 50MCG/NASAL SPRAY 16GM BOTTLE. NS SCH (10:31)
[2018-05-10] MEDS: cefTRIAXone IV Push 1 GM VIAL. IVP SCH (10:37)
[2018-05-10] MEDS: DOXYCYCLINE HYCLATE 100 MG in IV DEXTROSE 5% 100ML 100 ML IV SCH (10:38)
[2018-05-10 11:00] VITALS: BP 126/78
--- NOTE | 2018-05-10 11:40 | NUR ---
SW following pt. Spoke with RN who had concerns about pt going home as pt is too weak. Spoke with pt in room and pt is interested in SNF. Pt reported he feels to weak and is not able to ambulate well due to SOA. Pt agreeable with [facility]. SW phoned and faxed referral to [facility]. Aimme here to see pt. Pt acceptance and admission pending. Will continue to follow.
[2018-05-10] MEDS ORDERED: IPRA3AMP29 NEB (12:27)
[2018-05-10] MEDS ORDERED: BUDE0.5A NEB (12:27)
[2018-05-10] MEDS ORDERED: GUAI5SYR PO (12:27)
--- NOTE | 2018-05-10 12:28 | SNU/HH DC ---
DISCHARGE ORDERS DISCHARGE INFORMATION: DISCHARGE DATE: May 10, 2018 FINAL DIAGNOSIS Problems Medical Problems: (1) COPD exacerbation Status: Acute CONDITION ON DISCHARGE: Stable CODE STATUS: Code Status: Full [facility]: SNF STAY <30 DAYS: Yes HOSPICE: HOSPICE: No HOSPICE EVAL & TREAT: No LTAC: ADMIT TO LTAC: No POST DISCHARGE ORDERS: ACTIVITY ORDERS: Activity as tolerated WEIGHT BEARING STATUS: As tolerated DIET AFTER DISCHARGE: Regular WOUND/INCISION CARE: No wound care needed CHECKS AFTER DISCHARGE: CHECKS AFTER DISCHARGE: Check blood press - daily, Check blood sugar, ac/hs TREATMENT/EQUIPMENT ORDERS: RESPIRATORY EQUIPMENT NEEDED: Oxygen, BiPAP Physical Therapy For: Evalulation/Treatment Occupational Therapy For: Evaluation/Treatment DISCHARGE MEDICATIONS: Home Meds Active Scripts Guaifenesin/Dextromethorphan (GUAIFENESIN DM SYRUP) 5 Ml Syrup, 10 ML PO PRN Q6HRS for cough MDD 1 for 7 Days, [facility] [place] Prov:ALBERT MONTEZ MD 05/10/18 Budesonide (BUDESONIDE) 0.5 Mg/2 Ml Ampul.neb, 0.5 MG NEB RTBID for copd MDD 1, #30 EACH Prov:ALBERT MONTEZ MD 05/10/18 Ipratropium/Albuterol Sulfate (DUONEB 0.5-3(2.5) MG/3 ML) 3 Ml Ampul.neb, 3 ML NEB RTQID for copd MDD 1, #30 EACH Prov:ALBERT MONTEZ MD 05/10/18 Doxycycline Hyclate (DOXYCYCLINE HYCLATE) 100 Mg Tablet, 100 MG PO BID, #14 TAB Prov:VIRAL SERRANO MD 04/16/16 Reported Medications Pantoprazole Sodium (PROTONIX) 40 Mg Tablet.dr, 40 MG PO DAILY, TAB 1 Refill 11/18/15 Potassium Chloride (POTASSIUM CHLORIDE) 10 Meq Capsule.er, 10 MEQ PO DAILY, TAB.SR 11/18/15 Furosemide (LASIX) 20 Mg Tablet, 1 TAB PO DAILY, #90 TAB 1 Refill 11/18/15 Albuterol Sulfate (ALBUTEROL SULFATE NEB SOLN) 2.5 Mg/3 Ml Vial.neb, 1 VIAL NEB PRN Q4HRS, #50 VIAL 10/11/15 Fluticasone/Salmeterol (ADVAIR 500-50 DISKUS) 1 Each Disk.w.dev, 1 PUFF IH DAILY , #1 INHALER 5 Refills 10/11/15 Tiotropium [place] (SPIRIVA) 18 Mcg Cap.w.dev, 1 CAP IH DAILY, #30 CAP 3 Refills 10/11/15 Tamsulosin Hcl (FLOMAX) 0.4 Mg Cap.er.24h, 1 CAP PO DAILY, #30 CAP 11 Refills 10/11/15 Metoprolol Tartrate (METOPROLOL TARTRATE) 25 Mg Tablet, 12.5 MG PO BID, #180 TAB 1 Refill 10/11/15 Discontinued Scripts Prednisone (PREDNISONE ) 10 Mg Tablet, 10 MG PO UD for PREDNISONE TAPER, #35 TAB 0 Refills Take 4 tablets by mouth daily for 5 days, then take 3 tablets by mouth daily for 5 days, then resume home dose of prednisone Prov:VIRAL SERRANO MD 04/16/16 Prednisone (PREDNISONE ) 10 Mg Tablet, 10 MG PO UD for PREDNISONE TAPER, #30 TAB 0 Refills Take 4 tablets by mouth daily for 3 days, then take 3 tablets by mouth daily for 3 days, then take 2 tablet by mouth daily for 3 days, then take 1 tablet by mouth daily x 3 days, then stop. Prov:VIRAL SERRANO MD 10/15/15 ALBERT MONTEZ MD May 10, 2018 12:28
--- NOTE | 2018-05-10 12:32 | PDOC3 ---
Discharge Summary Visit Information Date of Admission: May 03, 2018 Date of Discharge: May 10, 2018 Admitting Diagnosis Comment: 1. Acute on chronic hypoxemic hypercapnic respiratory failure. 2. Pneumonia, suspect gram-negative, gram-positive. 3. Pulmonary fibrosis. 4. Tobacco dependence. 5. Gastroesophageal reflux. 6. copd w ae Final Diagnosis Problems Medical Problems: (1) COPD exacerbation Status: Acute Brief Hospital Course Allergies Allergies Coded Allergies Type Severity Reaction Last Updated Verified morphine Adverse Reaction Intermediate Itching 04/14/16 Yes Vital Signs Vital Signs Date Time Temp Pulse Resp B/P (MAP) Pulse Ox O2 Delivery O2 Flow Rate FiO2 05/10/18 11:00 97.9 96 20 126/78 (94) 93 Nasal Cannula 2.0 97.9 Lab Results Laboratory Tests Test 05/08/18 16:45 05/08/18 20:11 05/09/18 07:32 05/09/18 09:10 Glucose (Fingerstick) 257 mg/dL (70-99) 190 mg/dL (70-99) 139 mg/dL (70-99) White Blood Count 12.7 x10^3/uL (4.0-11.0) Red Blood Count 4.50 x10^6/uL (4.30-5.70) Hemoglobin 13.3 g/dL (13.0-17.5) Hematocrit 41.8 % (39.0-53.0) Mean Corpuscular Volume 93 fL (79-100) Mean Corpuscular Hemoglobin 30 pg (25-35) Mean Corpuscular Hemoglobin Concent 32 g/dL (31-37) Red Cell Distribution Width 14.0 % (11.5-14.5) Platelet Count 370 x10^3/uL (140-400) Neutrophils (%) (Auto) 92 % (31-73) Lymphocytes (%) (Auto) 5 % (24-48) Monocytes (%) (Auto) 3 % (0-9) Eosinophils (%) (Auto) 0 % (0-3) Basophils (%) (Auto) 0 % (0-3) Neutrophils # (Auto) 11.7 x10^3uL (1.8-7.7) Lymphocytes # (Auto) 0.6 x10^3/uL (1.0-4.8) Monocytes # (Auto) 0.4 x10^3/uL (0.0-1.1) Eosinophils # (Auto) 0.0 x10^3/uL (0.0-0.7) Basophils # (Auto) 0.0 x10^3/uL (0.0-0.2) Sodium Level 135 mmol/L (136-145) Potassium Level 4.6 mmol/L (3.5-5.1) Chloride Level 93 mmol/L (98-107) Carbon Dioxide Level 39 mmol/L (21-32) Anion Gap 3 (6-14) Blood Urea Nitrogen 31 mg/dL (8-26) Creatinine 0.8 mg/dL (0.7-1.3) Estimated GFR (Cockcroft-Gault) 96.1 Glucose Level 279 mg/dL (70-99) Calcium Level 9.0 mg/dL (8.5-10.1) Test 05/09/18 11:24 05/09/18 15:52 05/09/18 20:13 05/10/18 05:20 Glucose (Fingerstick) 234 mg/dL (70-99) 205 mg/dL (70-99) 140 mg/dL (70-99) Sodium Level 137 mmol/L (136-145) Potassium Level 4.9 mmol/L (3.5-5.1) Chloride Level 92 mmol/L (98-107) Carbon Dioxide Level 43 mmol/L (21-32) Anion Gap 2 (6-14) Blood Urea Nitrogen 29 mg/dL (8-26) Creatinine 0.6 mg/dL (0.7-1.3) Estimated GFR (Cockcroft-Gault) 134.0 Glucose Level 104 mg/dL (70-99) Calcium Level 9.3 mg/dL (8.5-10.1) Test 05/10/18 07:46 05/10/18 11:11 Glucose (Fingerstick) 81 mg/dL (70-99) 119 mg/dL (70-99) Laboratory Tests Test 05/09/18 15:52 05/09/18 20:13 05/10/18 05:20 05/10/18 07:46 Glucose (Fingerstick) 205 mg/dL (70-99) 140 mg/dL (70-99) 81 mg/dL (70-99) Sodium Level 137 mmol/L (136-145) Potassium Level 4.9 mmol/L (3.5-5.1) Chloride Level 92 mmol/L (98-107) Carbon Dioxide Level 43 mmol/L (21-32) Anion Gap 2 (6-14) Blood Urea Nitrogen 29 mg/dL (8-26) Creatinine 0.6 mg/dL (0.7-1.3) Estimated GFR (Cockcroft-Gault) 134.0 Glucose Level 104 mg/dL (70-99) Calcium Level 9.3 mg/dL (8.5-10.1) Test 05/10/18 11:11 Glucose (Fingerstick) 119 mg/dL (70-99) Brief Hospital Course Mr. Romero is a 67 old white male, smoker, lives in a trailer, admitted for COPD exacerbation with pneumonia on chest x-ray. Comanagement pulmonary. Needed BiPAP when necessary. We are able to get him to rehabilitation SNU Agreeable Counselled on smoke cessation By mouth Doxy. Pred Taper and other inhalers on chart DC time less than 30 minutes Consults pulmonary Procedures performed none Discharge Information Condition at Discharge: Improved, Stable Disposition/Orders: Other (snu) Scheduled Albuterol Sulfate (Albuterol Sulfate Neb Soln) 2.5 Mg/3 Ml Vial.neb, 1 VIAL NEB PRN Q4HRS, #50 (Reported) Entered as Reported by: ROSEMARIE VILLANUEVA on 10/11/15413 Last Action: Continued on 05/04/18752 by EVGENY ELIZABETH MD Budesonide (Budesonide) 0.5 Mg/2 Ml Ampul.neb, 0.5 MG NEB RTBID for copd MDD 1, #30 Prescribed by: ALBERT MONTEZ on 05/10/18 1227 Doxycycline Hyclate (Doxycycline Hyclate) 100 Mg Tablet, 100 MG PO BID, #14 Prescribed by: VIRAL SERRANO on 04/16/16 1054 Last Action: HELD on 05/04/18752 by EVGENY ELIZABETH MD Fluticasone/Salmeterol (Advair 500-50 Diskus) 1 Each Disk.w.dev, 1 PUFF IH DAILY , #1 Ref 5 (Reported) Entered as Reported by: ROSEMARIE VILLANUEVA on 10/11/15413 Last Action: HELD on 05/04/18752 by EVGENY ELIZABETH MD Furosemide (Lasix) 20 Mg Tablet, 1 TAB PO DAILY, #90 Ref 1 (Reported) Entered as Reported by: Kate Casarez on 11/18/15 1156 Last Action: HELD on 05/04/18752 by EVGENY ELIZABETH MD Guaifenesin/Dextromethorphan (Guaifenesin Dm Syrup) 5 Ml Syrup, 10 ML PO PRN Q6HRS for cough MDD 1 for 7 Days Prescribed by: ALBERT MONTEZ on 05/10/18 1227 Ipratropium/Albuterol Sulfate (Duoneb 0.5-3(2.5) Mg/3 Ml) 3 Ml Ampul.neb, 3 ML NEB RTQID for copd MDD 1, #30 Prescribed by: ALBERT MONTEZ on 05/10/18 1227 Metoprolol Tartrate (Metoprolol Tartrate) 25 Mg Tablet, 12.5 MG PO BID, #180 Ref 1 (Reported) Entered as Reported by: ROSEMARIE VILLANUEVA on 10/11/15413 Last Action: Continued on 05/04/18752 by EVGENY ELIZABETH MD Pantoprazole Sodium (Protonix) 40 Mg Tablet.dr, 40 MG PO DAILY, Ref 1 (Reported) Entered as Reported by: Kate Casarez on 11/18/15 1229 Last Action: Continued on 05/04/18752 by EVGENY ELIZABETH MD Potassium Chloride (Potassium Chloride) 10 Meq Capsule.er, 10 MEQ PO DAILY, ( Reported) Entered as Reported by: Kate Casarez on 11/18/15 1157 Last Action: Continued on 05/04/18752 by EVGENY ELIZABETH MD Tamsulosin Hcl (Flomax) 0.4 Mg Cap.er.24h, 1 CAP PO DAILY, #30 Ref 11 (Reported) Entered as Reported by: ROSEMARIE VILLANUEVA on 10/11/15413 Last Action: Continued on 05/04/18752 by EVGENY ELIZABETH MD Tiotropium [place] (Spiriva) 18 Mcg Cap.w.dev, 1 CAP IH DAILY, #30 Ref 3 ( Reported) Entered as Reported by: ROSEMARIE VILLANUEVA on 10/11/15413 Last Action: Converted on 05/04/18 0753 by EVGENY ELIZABETH MD Discontinued Medications Prednisone (Prednisone ) 10 Mg Tablet, 10 MG PO UD for PREDNISONE TAPER, #30 Ref 0 Take 4 tablets by mouth daily for 3 days, then take 3 tablets by mouth daily for 3 days, then take 2 tablet by mouth daily for 3 days, then take 1 tablet by mouth daily x 3 days, then stop. Discontinued Reason: COMPLETED Prescribed by: VIRAL SERRANO on 10/15/15 1521 Last Action: Discontinued on 05/07/181438 by UMA CRAMER RPH Prednisone (Prednisone ) 10 Mg Tablet, 10 MG PO UD for PREDNISONE TAPER, #35 Ref 0 Take 4 tablets by mouth daily for 5 days, then take 3 tablets by mouth daily for 5 days, then resume home dose of prednisone Discontinued Reason: COMPLETED Prescribed by: VIRAL SERRANO on 04/16/16 1054 Last Action: Discontinued on 05/07/181438 by UMA CRAMER [facility] ALBERT MONTEZ MD May 10, 2018 12:32
[2018-05-10] MEDS ORDERED: MAG HYDROX/ALUMINUM HYD/SIMETH 30 ML ORAL.SUSP PO ONE (13:00)
[2018-05-10] MEDS ORDERED: MAG HYDROX/ALUMINUM HYD/SIMETH 30 ML ORAL.SUSP PO PRN (13:00)
--- NOTE | 2018-05-10 14:17 | NUR ---
[facility] following. Pt has been accepted at [facility]. [facility]TIE phoned and faxed orders and Bipap setting. Pt will transport via facility arranged w/c van between [phone]. Packet on chart. Pt aware and agreeable with plans. Discussed with RN.
[2018-05-10 15:00] VITALS: BP 117/64
--- NOTE | 2018-05-10 15:55 | NUR ---
Discharge Note: [facility] [place] Discharge instructions and discharge home medications reviewed with Patient and a copy given. All questions have been answered and understanding verbalized. The following instructions and handouts were given: COPD Discontinued lines and drains: peripheral line. Patient discharged to Rehab Facility with Ambulance Personnel via Wheelchair
== END 2018-05-10 16:09 | DRG 871 ==
LOC: ER 16:26 → 5 NORTH 18:05
PROVIDERS: ADMIT Internal Medicine; ATTEND Internal Medicine
PROC: 5A09357 Assistance with Respiratory Ventilation, Less than 24 Consecutive Hours, Continuous Positive Airway Pressure (ICD-10-PCS; principal; 2018-05-03)
PROC: 5A09357 Assistance with Respiratory Ventilation, Less than 24 Consecutive Hours, Continuous Positive Airway Pressure (ICD-10-PCS; 2018-05-04)
PROC: 5A09357 Assistance with Respiratory Ventilation, Less than 24 Consecutive Hours, Continuous Positive Airway Pressure (ICD-10-PCS; 2018-05-05)
PROC: 5A09357 Assistance with Respiratory Ventilation, Less than 24 Consecutive Hours, Continuous Positive Airway Pressure (ICD-10-PCS; 2018-05-10)
DX: A41.9 Sepsis, unspecified organism (principal); J96.21 Acute and chronic respiratory failure with hypoxia; J96.22 Acute and chronic respiratory failure with hypercapnia; J15.6 Pneumonia due to other Gram-negative bacteria; J15.9 Unspecified bacterial pneumonia; J44.1 Chronic obstructive pulmonary disease with (acute) exacerbation; J44.0 Chronic obstructive pulmonary disease with (acute) lower respiratory infection; J84.10 Pulmonary fibrosis, unspecified; K21.9 Gastro-esophageal reflux disease without esophagitis; I50.9 Heart failure, unspecified; I11.0 Hypertensive heart disease with heart failure; Z99.81 Dependence on supplemental oxygen; Z82.49 Family history of ischemic heart disease and other diseases of the circulatory system; F17.210 Nicotine dependence, cigarettes, uncomplicated; Z79.51 Long term (current) use of inhaled steroids; E78.5 Hyperlipidemia, unspecified; N40.0 Benign prostatic hyperplasia without lower urinary tract symptoms; Z79.899 Other long term (current) drug therapy
CPT/HCPCS: 36415; 36600; 71045; 80048; 80053; 82805; 82962; 83605; 83735; 84484; 85007; 85025; 87040; 87804; 90471; 90756; 93005; 93306; 94640; 94660; 94760; 96374; 96375; J0456; J0696; J1815; J2920; J2930; J3490; J7030; J7512; J7613; J7620; J7626; 97116; 97530; 97535; 99285-25; Q2035

== ENCOUNTER 2018-05-17 21:44 | Inpatient (IN) | payer MEDICARE ==
[~2018-05-17] VITALS: Ht 170.2 cm; Wt 64.1 kg
[~2018-05-17 21:44] MED LIST changes: +BUDE0.5A NEB; +GUAI5SYR PO; +IPRA3AMP29 NEB
[2018-05-17] MEDS ORDERED: IPRATRPIUM/ALBUTEROL 0.5/2.5MG 3 ML NEBU. ONE (21:53)
[2018-05-17 22:01] LABS: BASO # 0.1 x10^3/uL (0.0-0.2); BASO % 1 % (0-3); EOS # 0.2 x10^3/uL (0.0-0.7); EOS % 2 % (0-3); HEMATOCRIT 42.3 % (39.0-53.0); HEMOGLOBIN 13.4 g/dL (13.0-17.5); LYMPH # 1.5 x10^3/uL (1.0-4.8); LYMPH % 16 % (24-48); MEAN CORPUSCULAR HEMOGLOBIN 30 pg (25-35); MEAN CORPUSCULAR HGB CONC 32 g/dL (31-37); MEAN CORPUSCULAR VOLUME 93 fL (79-100); MONO # 0.8 x10^3/uL (0.0-1.1); MONO % 8 % (0-9); NEUT # 7.1 x10^3uL (1.8-7.7); NEUT % 73 % (31-73); PLATELET COUNT 362 x10^3/uL (140-400); RED BLOOD COUNT 4.53 x10^6/uL (4.30-5.70); RED CELL DISTRIBUTION WIDTH 14.3 % (11.5-14.5); WHITE BLOOD COUNT 9.7 x10^3/uL (4.0-11.0)
[2018-05-17] MEDS ORDERED: IPRATRPIUM/ALBUTEROL 0.5/2.5MG 3 ML NEBU. NEB ONE (22:15)
[2018-05-17] MEDS ORDERED: methylPREDNISolone SOD SUCC PF 125 MG/2 ML VIAL. IV ONE (22:15)
[2018-05-17 22:16] LABS: CALCIUM 9.3 mg/dL (8.5-10.1); CREATININE 0.8 mg/dL (0.7-1.3); GFR 96.1; POTASSIUM 4.5 mmol/L (3.5-5.1)
[2018-05-17 22:16] LABS: BASE EXCESS ABG 6 mmol/L (-3-3); HCO3 ABG 34 mmol/L (21-28); PO2 ABG 59 mmHg (65-108); SAT O2 ABG 90 % (92-99)
[2018-05-17 22:17] LABS: PROTHROMBIN TIME PATIENT 12.6 SEC (11.7-14.0)
[2018-05-17 22:18] LABS: FIO2 ABG 50; PCO2 ABG 61 mmHg (35-46)
[2018-05-17 22:20] LABS: D-DIMER 1.67 ug/mlFEU (0.00-0.50)
[2018-05-17 22:25] LABS: ALBUMIN 3.8 g/dL (3.4-5.0); TOTAL BILIRUBIN 0.3 mg/dL (0.2-1.0); TOTAL PROTEIN 7.6 g/dL (6.4-8.2)
--- NOTE | 2018-05-17 22:43 | PHYS DOC ---
Past Medical History Past Medical History: Asthma, CHF, COPD, GERD Additional Past Medical Histor: BPH, home oxygen Past Surgical History: Other Additional Past Surgical Histo: left shoulder rotator cuff repair Alcohol Use: Sober Drug Use: None Adult General Chief Complaint Chief Complaint: DYSPNEA/RESPIRATOY DISTRESS HPI HPI Patient is a 67 yo male who was recently discharged from [facility] w/ pneumonia who presents via EMS from [facility] with complaint of worsening shortness of breath. Per EMS patient received several duoneb treatments at [facility] and was 84% on 4LNC when EMS arrived. EMS applied bipap and patient's sat improved to low 90s. Patient reports he was feeling better on bipap. Patient denies additional sx besides dry cough. 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 Review of Systems Review of Systems Constitutional: Denies fever or chills [] HENT: Denies nasal congestion or sore throat [] Respiratory: Admits cough. Admits shortness of breath. ] Cardiovascular: Denies chest pain GI: Denies abdominal pain, nausea, vomiting, bloody stools or diarrhea [] : Denies dysuria or hematuria [] Musculoskeletal: Denies back pain or joint pain [] Integument: Denies rash or skin lesions [] Neurologic: Denies headache, focal weakness or sensory changes [] Endocrine: Denies polyuria or polydipsia [] All other systems were reviewed and found to be within normal limits, except as documented in this note. Current Medications Current Medications Current Medications Medications (Trade) Dose Ordered Sig/Elijah Start Time Stop Time Status Last Admin Dose Admin Albuterol/ Ipratropium (Duoneb) 3 ml STK-MED ONCE 05/17/18 21:53 05/17/18 21:54 DC Methylprednisolone Sodium Succinate (SOLU-Medrol 125MG VIAL) 125 mg 1X ONCE 05/17/18 22:15 05/17/18 22:16 DC 05/17/18 22:22 125 MG Allergies Allergies Allergies Coded Allergies Type Severity Reaction Last Updated Verified morphine Adverse Reaction Intermediate Itching 04/14/16 Yes Physical Exam Physical Exam Constitutional: Well developed, well nourished, bipap mask in place HENT: Normocephalic, atraumatic, nose normal, no oropharyngeal exudates appreciated Neck: Normal range of motion, no tenderness, supple, no stridor. [] Cardiovascular: Difficult to auscultate d/t bipap Lungs & Thorax: wheezing noted with use of accessroy muscles Skin: Warm, dry, no erythema, no rash. [] Extremities: No tenderness, no cyanosis, no clubbing, no edema, no cords or swelling appreciated. [] Neurologic: Alert and oriented X 3 moving all extremities Current Patient Data Vital Signs Vital Signs Date Time Temp Pulse Resp B/P (MAP) Pulse Ox O2 Delivery O2 Flow Rate FiO2 05/17/18 22:55 94 122/65 (84) 99 BiPAP/CPAP 05/17/18 21:51 98.7 26 98.7 Lab Values Laboratory Tests Test 05/17/18 20:21 05/17/18 22:09 White Blood Count 9.7 x10^3/uL (4.0-11.0) Red Blood Count 4.53 x10^6/uL (4.30-5.70) Hemoglobin 13.4 g/dL (13.0-17.5) Hematocrit 42.3 % (39.0-53.0) Mean Corpuscular Volume 93 fL (79-100) Mean Corpuscular Hemoglobin 30 pg (25-35) Mean Corpuscular Hemoglobin Concent 32 g/dL (31-37) Red Cell Distribution Width 14.3 % (11.5-14.5) Platelet Count 362 x10^3/uL (140-400) Neutrophils (%) (Auto) 73 % (31-73) Lymphocytes (%) (Auto) 16 % (24-48) L Monocytes (%) (Auto) 8 % (0-9) Eosinophils (%) (Auto) 2 % (0-3) Basophils (%) (Auto) 1 % (0-3) Neutrophils # (Auto) 7.1 x10^3uL (1.8-7.7) Lymphocytes # (Auto) 1.5 x10^3/uL (1.0-4.8) Monocytes # (Auto) 0.8 x10^3/uL (0.0-1.1) Eosinophils # (Auto) 0.2 x10^3/uL (0.0-0.7) Basophils # (Auto) 0.1 x10^3/uL (0.0-0.2) Prothrombin Time 12.6 SEC (11.7-14.0) Prothrombin Time INR 1.0 (0.8-1.1) D-Dimer (Zoila) 1.67 ug/mlFEU (0.00-0.50) H Sodium Level 137 mmol/L (136-145) Potassium Level 4.5 mmol/L (3.5-5.1) Chloride Level 96 mmol/L (98-107) L Carbon Dioxide Level 37 mmol/L (21-32) H Anion Gap 4 (6-14) L Blood Urea Nitrogen 26 mg/dL (8-26) Creatinine 0.8 mg/dL (0.7-1.3) Estimated GFR (Cockcroft-Gault) 96.1 BUN/Creatinine Ratio 33 (6-20) H Glucose Level 128 mg/dL (70-99) H Lactic Acid Level 1.0 mmol/L (0.4-2.0) Calcium Level 9.3 mg/dL (8.5-10.1) Total Bilirubin 0.3 mg/dL (0.2-1.0) Aspartate Amino Transferase (AST) 43 U/L (15-37) H Alanine Aminotransferase (ALT) 100 U/L (16-63) H Alkaline Phosphatase 108 U/L (46-116) Troponin I Quantitative < 0.017 ng/mL (0.000-0.055) QQ-Axt-E-Type Natriuretic Peptide 59 pg/mL (0-124) Total Protein 7.6 g/dL (6.4-8.2) Albumin 3.8 g/dL (3.4-5.0) Albumin/Globulin Ratio 1.0 (1.0-1.7) Procalcitonin < 0.10 ng/mL (0.00-0.10) O2 Saturation 90 % (92-99) L Arterial Blood pH 7.36 (7.35-7.45) Arterial Blood pCO2 at Patient Temp 61 mmHg (35-46) *H Arterial Blood pO2 at Patient Temp 59 mmHg (65-108) L Arterial Blood HCO3 34 mmol/L (21-28) H Arterial Blood Base Excess 6 mmol/L (-3-3) H FiO2 50 Laboratory Tests 05/17/18 20:21 Laboratory Tests 05/17/18 20:21 EKG EKG @2151: HR 102BPM; Sinus tachycardia. Normal axis. No ST elevation appreciated.] Radiology/Procedures Radiology/Procedures [PROCEDURE: PORTABLE CHEST 1V PORTABLE CHEST 1V Clinical History: SOA Technique: AP view of the chest was obtained at 05/17/2018 10:14 PM. Comparison: April 14, 2016. Findings: The cardiomediastinal silhouette is normal. The pulmonary vasculature is normal. There is patchy reticular opacities throughout the lungs. The pleural margins are clear. Impression: Mild interstitial edema not seen previously suggesting atypical pneumonia or mild CHF. Electronically signed by: Buck Irwin III, MD (05/17/2018 11:19 PM) [facility]] PROCEDURE: CT ANGIOGRAPHY CHEST INDICATION: SOB, EVAL FOR PE; OMNI 350, 75ML COMPARISON: None. TECHNIQUE: Axial CT images obtained through the chest. Intravenous contrast utilized. Angiogram 3D images processed per protocol. One or more of the following individualized dose reduction techniques were utilized for this examination: 1. Automated exposure control; 2. Adjustment of the mA and/or kV according to patient size; 3. Use of iterative reconstruction technique. FINDINGS: Disorganized pulmonary markings bilaterally with cystic changes throughout the bilateral lungs. There are some patchy groundglass and nodular opacities as well. This includes at the right lower lung where there are some focal masslike opacities identified with a couple of them measuring up to approximately 11 mm. There is some peribronchial thickening. Debris is seen within the airways most severe at the right lung. Partial visualization of air at suspected partially visualized gallbladder. Small hiatal hernia. Enlarged lymph nodes within the mediastinum. Degenerative changes of spine. Portion of ascending thoracic aorta obscured by motion. Aortic root measures approximately 48 mm with a ascending thoracic aorta measuring up to about 36 mm. Coronary artery calcific atherosclerosis. No central pulmonary embolus. Limited peripherally by motion. IMPRESSION: No central pulmonary embolus. Limited peripherally by motion. There is debris within the airway is severe within the right lung. Would correlate with symptoms of aspiration. Patchy nodular and groundglass opacities bilaterally. Could be infectious or inflammatory in nature but neoplastic causes are not excluded and a follow-up could be obtained to ensure no growth to exclude neoplasm. The patient also has lymphadenopathy within the mediastinum and hilum which can be followed at that time as well. This lymphadenopathy could be reactive in nature but neoplastic causes not excluded. Cystic changes throughout the bilateral lungs which can be seen with chronic lung disease such as emphysema. Coronary artery calcific atherosclerosis. Electronically signed by: Kevin Webb MD (05/18/2018 1:32 AM) [facility] [place] Impressions: IMPRESSION: No central pulmonary embolus. Limited peripherally by motion. There is debris within the airway is severe within the right lung. Would correlate with symptoms of aspiration. Patchy nodular and groundglass opacities bilaterally. Could be infectious or inflammatory in nature but neoplastic causes are not excluded and a follow-up could be obtained to ensure no growth to exclude neoplasm. The patient also has lymphadenopathy within the mediastinum and hilum which can be followed at that time as well. This lymphadenopathy could be reactive in nature but neoplastic causes not excluded. Cystic changes throughout the bilateral lungs which can be seen with chronic lung disease such as emphysema. Coronary artery calcific atherosclerosis. Electronically signed by: Kevin Webb MD (05/18/2018 1:32 AM) [facility] [place] Course & Med Decision Making Course & Med Decision Making Critical care time was 40 minutes exclusive of procedures.Patient is a 67 yo male who recently dc from [facility] sp pneumonia who presents from assisted living facility with chief complaint of shortness of breath. Patient received several nebulized treatments at the facility without symptomatic improvement. On arrival via EMS patient was tolerating bipap well. Bipap continued in ED. EKG revealed sinus tachycardia. CXR revealed "mild interstitial edema...suggesting atypical pneumonia or mild CHF". CT angio revealed no central PE, however nodular and groundglass opacities that could be infection or inflammatory in nature. ABG revealed pH 7.36, pCO2 61H, pO2 59L, HCO3 34 indicative of respiratory acidosis. D/t increasing hypoxia, shortness of breath, and imaging felt patient was appropriate for admission d/t COPD exacerbation and pneumonia. Patient received vancomycin and piptazo for pneumonia coverage. Patient admitted to [facility] for further evaluation per usual local protocol. Plan discussed with patient who voiced understanding and agreement. Dragon Disclaimer Dragon Disclaimer This electronic medical record was generated, in whole or in part, using a voice recognition dictation system. Departure Departure Impression: Primary Impression: COPD (chronic obstructive pulmonary disease) Additional Impression: Pneumonia Disposition: ADMITTED INPATIENT Admitting Physician: Other Condition: GUARDED Referrals: DUSTY RAGSDALE MD (PCP) Problem Qualifiers MEGHANN DIAZ MD May 17, 2018 22:43
[2018-05-17] MEDS ORDERED: PIP/TAZO PER PHARMACY MC PRN (23:15)
--- NOTE | 2018-05-17 23:22 | RAD ---
PORTABLE CHEST 1V Clinical History: SOA Technique: AP view of the chest was obtained at 05/17/2018 10:14 PM. Comparison: April 14, 2016. Findings: The cardiomediastinal silhouette is normal. The pulmonary vasculature is normal. There is patchy reticular opacities throughout the lungs. The pleural margins are clear. Impression: Mild interstitial edema not seen previously suggesting atypical pneumonia or mild CHF. Electronically signed by: Buck Irwin III, MD (05/17/2018 11:19 PM) [facility]
[2018-05-17] MEDS ORDERED: VANCOMYCIN 1.5 GM in IV NORMAL SALINE 500ML BAG 500 ML IV ONE (23:30)
[2018-05-17] MEDS ORDERED: PIPERACILLIN/TAZOBACTAM 3.375 GM in IV NORMAL SALINE 50ML 50 ML IV ONE (23:30)
[2018-05-17] MEDS ORDERED: CONTRAST GIVEN. MC PRN (23:45)
[2018-05-18] VITALS (7 sets, daily range): BP systolic 110–143; BP diastolic 58–76
[2018-05-18] MEDS: ASPIRIN CHEWABLE 81 MG TABLET. PO ONE ×2 (00:30→21:29)
[2018-05-18] MEDS ORDERED: IOHEXOL 350 MG/ML 100 ML VIAL. IV ONE (00:30)
--- NOTE | 2018-05-18 01:35 | RAD ---
INDICATION: SOB, EVAL FOR PE; OMNI 350, 75ML COMPARISON: None. TECHNIQUE: Axial CT images obtained through the chest. Intravenous contrast utilized. Angiogram 3D images processed per protocol. One or more of the following individualized dose reduction techniques were utilized for this examination: 1. Automated exposure control; 2. Adjustment of the mA and/or kV according to patient size; 3. Use of iterative reconstruction technique. FINDINGS: Disorganized pulmonary markings bilaterally with cystic changes throughout the bilateral lungs. There are some patchy groundglass and nodular opacities as well. This includes at the right lower lung where there are some focal masslike opacities identified with a couple of them measuring up to approximately 11 mm. There is some peribronchial thickening. Debris is seen within the airways most severe at the right lung. Partial visualization of air at suspected partially visualized gallbladder. Small hiatal hernia. Enlarged lymph nodes within the mediastinum. Degenerative changes of spine. Portion of ascending thoracic aorta obscured by motion. Aortic root measures approximately 48 mm with a ascending thoracic aorta measuring up to about 36 mm. Coronary artery calcific atherosclerosis. No central pulmonary embolus. Limited peripherally by motion. IMPRESSION: No central pulmonary embolus. Limited peripherally by motion. There is debris within the airway is severe within the right lung. Would correlate with symptoms of aspiration. Patchy nodular and groundglass opacities bilaterally. Could be infectious or inflammatory in nature but neoplastic causes are not excluded and a follow-up could be obtained to ensure no growth to exclude neoplasm. The patient also has lymphadenopathy within the mediastinum and hilum which can be followed at that time as well. This lymphadenopathy could be reactive in nature but neoplastic causes not excluded. Cystic changes throughout the bilateral lungs which can be seen with chronic lung disease such as emphysema. Coronary artery calcific atherosclerosis. Electronically signed by: Kevin Webb MD (05/18/2018 1:32 AM) [facility]
--- NOTE | 2018-05-18 01:35 | EKG ---
[facility] [address] [place] [address] Test Date: 2018-05-17 Test Time: 21:51:12 Pat Name: YOUNG PENNINGTON Department: Room: 207 Gender: M Maturity Checker: : 1950 Requested By: MEGHANN DIAZ Order Number: [id number] Reading MD: Oseas Hinton MD Measurements Intervals [place] Rate: 102 P: 61 AR: 124 QRS: 73 QRSD: 86 T: 64 QT: 304 QTc: 400 Interpretive Statements SINUS TACHYCARDIA Electronically Signed On 05-21-2018 16:05:07 CDT by Oseas Hinton MD
[2018-05-18] MEDS: VANCOMYCIN PER PHARMACY MC PRN ×2 (01:40→09:37)
--- NOTE | 2018-05-18 01:40 | NUR ---
Pharmacy Vancomycin Dosing Note S:Consulted to monitor and dose vancomycin started 05/18/18. O:YOUNG PENNINGTON is a 67 year old M with HCAP . Height: 5 feet, 7 inches Weight: 63.947267 kg [place] Body Weight: 66.10 Adjusted Body Weight: 64.86 Dosing Weight: Actual Other Antibiotics: ZOSYN 3.375 GM Q6H LABS: Last BUN: 26 Last Creatinine: 0.8 Creatinine Clearance: 59 mL/min Last WBC: 9.7 Last Procalcitonin: Tmax (past 24 hours): Microbiology: I/O: Drug Levels: Last level: on at Last dose given 05/18/18 at 0000 Vancomycin Dosing: Loading Dose: 1500 mg x1 Dosing Weight: Actual Target Trough: 15-20 A: Based on: WT AND CRCL P: 1. Begin Vancomycin 1000 mg IV q12h 2. Follow up Trough level on 05/19/18 at 1130 3. Pharmacy will continue to monitor, follow and adjust therapy as needed. GRACIELA TALAVERA RPH, 05/18/18 0140 Signed: 05/18/18 at 0141 by GRACIELA TALAVERA RPH PHA
--- NOTE | 2018-05-18 02:00 | NUR ---
The patient, YOUNG PENNINGTON, 67 y/o, M admitted by MUSA HOYT MD, was given written information regarding hospital policies, unit procedures and contact persons. PT ARRIVED TO ROOM 207 ON GURNEY FROM ER WITH STAFF X1. PT ON NON REBREATHER. UNTIL HE NEEDS TO GO BACK ON BIPAP. DISCUSSED POC, MEDS, HISTORY. NPO TILL AM, AND RT TREATMENTS. PT REQUESTED PRN. CALLED DR HOYT, SEE ORDER. PT STATES HE STOPPED SMOKING TWO DAYS AGO. AND PT STATES HE JUST LEFT [facility] BEGIN[facility]ING OF THE MONTH WITH PNEUMONIA. WENT TO [facility]. FLU THEN WAS NEGATIVE. Valuables were checked and DOCUMENTED IN EMR. LCRN .
[2018-05-18] MEDS ORDERED: ALBUTEROL SULFATE 2.5 MG/3 ML NEBU. NEB PRN (02:30)
--- NOTE | 2018-05-18 04:00 | NUR ---
VERIFIED THAT ASPIRIN WAS NOT GIVEN IN ER. PASSED ON TO DAYS RN. MAGALLON
[2018-05-18] MEDS ORDERED: PIPERACILLIN/TAZOBACTAM 3.375 GM in IV NORMAL SALINE 50ML 50 ML IV SCH (06:00)
[2018-05-18] MEDS: IPRATRPIUM/ALBUTEROL 0.5/2.5MG 3 ML NEBU. NEB SCH ×5 (07:33→20:07)
--- NOTE | 2018-05-18 11:23 | NUR ---
SS following up with discharge planning. SS received notification that pt was from [facility] nursing [facility]. ROBERT contacted [facility], ; fax [phone], to verify pt's previous placement. [facility] confirmed that pt was a skilled rehabilitation resident from there facility and was able to return when medically stable for discharge. Pt is currently on high flow oxygen at this time.
[2018-05-18] MEDS: VANCOMYCIN 1 GM in IV NORMAL SALINE 250ML 250 ML IV SCH (11:44)
[2018-05-18] MEDS: PIPERACILLIN/TAZOBACTAM 4.5 GM in IV NORMAL SALINE 100ML 100 ML IV SCH ×2 (11:44→17:40)
--- NOTE | 2018-05-18 15:21 | NUR ---
Bedside Swallow Evaluation completed. Please see full report for additional details. Impressions: Mild oropharyngeal dysphagia w/ s/s aspiration noted w/ thin liquids and solids. Respiratory status, timing of breath/swallow cycle and inhalation post swallow contributing factors for dysphagia. No s/s aspiration noted w/ trials of honey thick liquids and puree. Pt impulsivity w/ thin liquids should also be noted. Recommendations: Initiate dysphagia I (puree) diet w/ honey thick liquids, no straws and swallow precautions. ST f/u for dysphagia and to assess safety for possible diet upgrade. D/w Ana-GRISELDA (to enter orders), written precautions posted in room
--- NOTE | 2018-05-18 15:35 | PDOC1 ---
History and Physical Date of Admission Date of Admission May 18, 2018 Identification/Chief Complaint Chief Complaint I couldn't breathe Source Source: Chart review, Patient History of Present Illness History of Present Illness Jairo is a 67-year-old gentleman with significant COPD who was recently admitted to our institution for a similar episode of shortness of breath. On that occasion the patient was diagnosed with a pneumonia given the very slow progression on his last admission consultation with pulmonology was required. The patient needed BiPAP on and off during that hospital stay and given that the patient lived in a very precarious situation on a trailer arrangements were made to get him to have rehabilitation she was discharged with doxycycline and prednisone taper the night of the admission the patient complained of inability to catch his breath at the facility a pulse oximetry dropped into the 70s according to the patient. The patient denied excessive coughing no fever no chills no recent sick contacts reported. The patient denies dietary transgressions and he has been adherent to the medical management of his underlying COPD disease. Patient that my evaluation is in no apparent distress accessory muscle use seen. No signs of respiratory or hemodynamic instability appreciated. Plan of care explained detail to the patient reassurances been provided and all of his concerns were addressed to the best of my abilities The rest to admit the patient for medical optimization Past Medical History Cardiovascular: Other Pulmonary: COPD, Pneumonia, Other GI: No pertinent hx Heme/Onc: No pertinent hx Hepatobiliary: No pertinent hx Psych: No pertinent hx Rheumatologic: No pertinent hx Infectious disease: No pertinent hx Renal/: No pertinent hx Endocrine: No pertinent hx Past Surgical History Past Surgical History: Other Family History Family History: Hypertension Social History ALCOHOL: none Drugs: None Current Problem List Problem List Problems Medical Problems: (1) COPD (chronic obstructive pulmonary disease) Status: Acute Current Medications Current Medications Current Medications Medications (Trade) Dose Ordered Sig/Elijah Start Time Stop Time Status Last Admin Dose Admin Albuterol Sulfate (Ventolin Neb Soln) 2.5 mg PRN Q4HRS PRN 05/18/18 02:30 05/18/18 02:15 2.5 MG Albuterol/ Ipratropium (Duoneb) 3 ml RTQID 05/18/18 08:00 05/19/18 07:59 05/18/18 11:34 3 ML Aspirin (Children'S Aspirin) 324 mg 1X ONCE 05/18/18 00:30 05/18/18 00:31 DC Info (CONTRAST GIVEN -- Rx MONITORING) 1 each PRN DAILY PRN 05/17/18 23:45 05/19/18 23:44 Iohexol (Omnipaque 350 Mg/ml) 75 ml 1X ONCE 05/18/18 00:30 05/18/18 00:31 DC 05/18/18 00:58 75 ML Methylprednisolone Sodium Succinate (SOLU-Medrol 125MG VIAL) 125 mg 1X ONCE 05/17/18 22:15 05/17/18 22:16 DC 05/17/18 22:22 125 MG Piperacillin Sod/ Tazobactam Sod (Zosyn Per Pharmacy) 1 each PRN DAILY PRN 05/17/18 23:15 Piperacillin Sod/ Tazobactam Sod 3.375 gm/Sodium Chloride 50 ml @ 100 mls/hr Q6HRS 05/18/18 06:00 05/18/18 09:40 DC 05/18/18 06:15 100 MLS/HR Piperacillin Sod/ Tazobactam Sod 4.5 gm/Sodium Chloride 100 ml @ 200 mls/hr Q6HRS 05/18/18 12:00 05/18/18 11:44 200 MLS/HR Vancomycin HCl (Vanco Per Pharmacy) 1 each PRN DAILY PRN 05/17/18 23:15 05/18/18 09:37 1 EACH Vancomycin HCl (Vancomycin Trough Level) 1 each 1X ONCE 05/19/18 11:30 05/19/18 11:31 Vancomycin HCl 1.5 gm/Sodium Chloride 500 ml @ 250 mls/hr 1X ONCE 05/17/18 23:30 05/18/18 01:29 DC 05/17/18 23:44 250 MLS/HR Vancomycin HCl 1 gm/Sodium Chloride 250 ml @ 250 mls/hr Q12H 05/18/18 12:00 05/18/18 11:44 250 MLS/HR Allergies Allergies Allergies Coded Allergies Type Severity Reaction Last Updated Verified morphine Adverse Reaction Intermediate Itching 04/14/16 Yes ROS Review of System CONSTITUTIONAL: No fever or chills EYES: No recent changes SKIN: No rash or itching CARDIOVASCULAR: No chest pain, syncope, palpitations, or edema RESPIRATORY: No SOB or cough GASTROINTESTINAL: No nausea, vomiting or abdominal pain NEUROLOGICAL: No headaches or weakness ENDOCRINE: No cold or heat intolerance GENITOURINARY: No urgency or frequency of urination MUSCULOSKELETAL: No back pain or joint pain LYMPHATICS: No enlarged lymph nodes PSYCHIATRIC: No anxiety or depression Physical Exam Physical Exam GEN.: No apparent distress. Alert and oriented. HEENT: Head is normocephalic, atraumatic NECK: Supple. LUNGS: Clear to auscultation. HEART: RRR, S1, S2 present. Peripheral pulses intact ABDOMEN: Soft, nontender. Positive bowel sounds. EXTREMITIES: Without any cyanosis. NEUROLOGIC: Normal speech, normal tone PSYCHIATRIC: Normal affect, normal mood. SKIN: No ulcerations Vitals Vitals Vital Signs Date Time Temp Pulse Resp B/P (MAP) Pulse Ox O2 Delivery O2 Flow Rate FiO2 05/18/18 11:35 97 Venturi Mask 15.0 05/18/18 11:00 96 20 143/70 (94) 05/18/18 07:00 95.9 95.9 Labs Labs Laboratory Tests Test 05/17/18 20:21 05/17/18 22:09 White Blood Count 9.7 x10^3/uL (4.0-11.0) Red Blood Count 4.53 x10^6/uL (4.30-5.70) Hemoglobin 13.4 g/dL (13.0-17.5) Hematocrit 42.3 % (39.0-53.0) Mean Corpuscular Volume 93 fL (79-100) Mean Corpuscular Hemoglobin 30 pg (25-35) Mean Corpuscular Hemoglobin Concent 32 g/dL (31-37) Red Cell Distribution Width 14.3 % (11.5-14.5) Platelet Count 362 x10^3/uL (140-400) Neutrophils (%) (Auto) 73 % (31-73) Lymphocytes (%) (Auto) 16 % (24-48) Monocytes (%) (Auto) 8 % (0-9) Eosinophils (%) (Auto) 2 % (0-3) Basophils (%) (Auto) 1 % (0-3) Neutrophils # (Auto) 7.1 x10^3uL (1.8-7.7) Lymphocytes # (Auto) 1.5 x10^3/uL (1.0-4.8) Monocytes # (Auto) 0.8 x10^3/uL (0.0-1.1) Eosinophils # (Auto) 0.2 x10^3/uL (0.0-0.7) Basophils # (Auto) 0.1 x10^3/uL (0.0-0.2) Prothrombin Time 12.6 SEC (11.7-14.0) Prothromb Time International Ratio 1.0 (0.8-1.1) D-Dimer (Zoila) 1.67 ug/mlFEU (0.00-0.50) Sodium Level 137 mmol/L (136-145) Potassium Level 4.5 mmol/L (3.5-5.1) Chloride Level 96 mmol/L (98-107) Carbon Dioxide Level 37 mmol/L (21-32) Anion Gap 4 (6-14) Blood Urea Nitrogen 26 mg/dL (8-26) Creatinine 0.8 mg/dL (0.7-1.3) Estimated GFR (Cockcroft-Gault) 96.1 BUN/Creatinine Ratio 33 (6-20) Glucose Level 128 mg/dL (70-99) Lactic Acid Level 1.0 mmol/L (0.4-2.0) Calcium Level 9.3 mg/dL (8.5-10.1) Total Bilirubin 0.3 mg/dL (0.2-1.0) Aspartate Amino Transf (AST/SGOT) 43 U/L (15-37) Alanine Aminotransferase (ALT/SGPT) 100 U/L (16-63) Alkaline Phosphatase 108 U/L (46-116) Troponin I Quantitative < 0.017 ng/mL (0.000-0.055) KJ-Iwc-H-Type Natriuretic Peptide 59 pg/mL (0-124) Total Protein 7.6 g/dL (6.4-8.2) Albumin 3.8 g/dL (3.4-5.0) Albumin/Globulin Ratio 1.0 (1.0-1.7) Procalcitonin < 0.10 ng/mL (0.00-0.10) O2 Saturation 90 % (92-99) Arterial Blood pH 7.36 (7.35-7.45) Arterial Blood pCO2 at Patient Temp 61 mmHg (35-46) Arterial Blood pO2 at Patient Temp 59 mmHg (65-108) Arterial Blood HCO3 34 mmol/L (21-28) Arterial Blood Base Excess 6 mmol/L (-3-3) FiO2 50 Laboratory Tests Test 05/17/18 20:21 05/17/18 22:09 White Blood Count 9.7 x10^3/uL (4.0-11.0) Red Blood Count 4.53 x10^6/uL (4.30-5.70) Hemoglobin 13.4 g/dL (13.0-17.5) Hematocrit 42.3 % (39.0-53.0) Mean Corpuscular Volume 93 fL (79-100) Mean Corpuscular Hemoglobin 30 pg (25-35) Mean Corpuscular Hemoglobin Concent 32 g/dL (31-37) Red Cell Distribution Width 14.3 % (11.5-14.5) Platelet Count 362 x10^3/uL (140-400) Neutrophils (%) (Auto) 73 % (31-73) Lymphocytes (%) (Auto) 16 % (24-48) Monocytes (%) (Auto) 8 % (0-9) Eosinophils (%) (Auto) 2 % (0-3) Basophils (%) (Auto) 1 % (0-3) Neutrophils # (Auto) 7.1 x10^3uL (1.8-7.7) Lymphocytes # (Auto) 1.5 x10^3/uL (1.0-4.8) Monocytes # (Auto) 0.8 x10^3/uL (0.0-1.1) Eosinophils # (Auto) 0.2 x10^3/uL (0.0-0.7) Basophils # (Auto) 0.1 x10^3/uL (0.0-0.2) Prothrombin Time 12.6 SEC (11.7-14.0) Prothromb Time International Ratio 1.0 (0.8-1.1) D-Dimer (Zoila) 1.67 ug/mlFEU (0.00-0.50) Sodium Level 137 mmol/L (136-145) Potassium Level 4.5 mmol/L (3.5-5.1) Chloride Level 96 mmol/L (98-107) Carbon Dioxide Level 37 mmol/L (21-32) Anion Gap 4 (6-14) Blood Urea Nitrogen 26 mg/dL (8-26) Creatinine 0.8 mg/dL (0.7-1.3) Estimated GFR (Cockcroft-Gault) 96.1 BUN/Creatinine Ratio 33 (6-20) Glucose Level 128 mg/dL (70-99) Lactic Acid Level 1.0 mmol/L (0.4-2.0) Calcium Level 9.3 mg/dL (8.5-10.1) Total Bilirubin 0.3 mg/dL (0.2-1.0) Aspartate Amino Transf (AST/SGOT) 43 U/L (15-37) Alanine Aminotransferase (ALT/SGPT) 100 U/L (16-63) Alkaline Phosphatase 108 U/L (46-116) Troponin I Quantitative < 0.017 ng/mL (0.000-0.055) ZU-Fsq-V-Type Natriuretic Peptide 59 pg/mL (0-124) Total Protein 7.6 g/dL (6.4-8.2) Albumin 3.8 g/dL (3.4-5.0) Albumin/Globulin Ratio 1.0 (1.0-1.7) Procalcitonin < 0.10 ng/mL (0.00-0.10) O2 Saturation 90 % (92-99) Arterial Blood pH 7.36 (7.35-7.45) Arterial Blood pCO2 at Patient Temp 61 mmHg (35-46) Arterial Blood pO2 at Patient Temp 59 mmHg (65-108) Arterial Blood HCO3 34 mmol/L (21-28) Arterial Blood Base Excess 6 mmol/L (-3-3) FiO2 50 VTE Prophylaxis Ordered VTE Prophylaxis Devices: Yes VTE Pharmacological Prophylaxi: Yes Assessment/Plan Assessment/Plan 1. Acute on chronic hypoxemic hypercapnic respiratory failure. 2. Recent history of Pneumonia, completed treatment in our institution 3. Pulmonary fibrosis. 4. Tobacco dependence. 5. Gastroesophageal reflux. 6. Acute exacerbation of COPD Plan: Resume home medications Resume home inhalers We will monitor off antibiotics and extending 4 hours The decision therapy as needed Encouraged more activity as tolerated Further recommendations will be based on the clinical course MUSA HOYT MD May 18, 2018 15:35
[2018-05-18] MEDS ORDERED: NICO1PAT27 TD (18:40)
[2018-05-18] MEDS ORDERED: SENN-80 PO (18:40)
[2018-05-18] MEDS ORDERED: MAG355OR11 PO (18:40)
[2018-05-18] MEDS ORDERED: MAG HYDROX/ALUMINUM HYD/SIMETH 30 ML ORAL.SUSP PO PRN (19:45)
[2018-05-18] MEDS: BUDESONIDE 0.5 MG/2 ML NEBU. NEB SCH (20:00)
[2018-05-18] MEDS: SENNOSIDES 8.6 MG TABLET PO SCH (21:11)
[2018-05-18] MEDS: METOPROLOL TART IMMED RELEASE 25 MG TABLET. PO SCH (21:12)
[2018-05-18] MEDS ORDERED: ASPIRIN CHEWABLE 81 MG TABLET. ONE ×2 (21:25→21:29)
[2018-05-19] MEDS: VANCOMYCIN 1 GM in IV NORMAL SALINE 250ML 250 ML IV SCH (00:33)
[2018-05-19] MEDS: PIPERACILLIN/TAZOBACTAM 4.5 GM in IV NORMAL SALINE 100ML 100 ML IV SCH ×2 (00:34→05:09)
[2018-05-19 03:26] VITALS: BP 129/59
[2018-05-19 07:07] VITALS: BP 128/67
[2018-05-19] MEDS: IPRATRPIUM/ALBUTEROL 0.5/2.5MG 3 ML NEBU. NEB SCH ×4 (07:46→20:28)
[2018-05-19] MEDS: BUDESONIDE 0.5 MG/2 ML NEBU. NEB SCH ×2 (07:47→20:00)
[2018-05-19] MEDS ORDERED: NON FORMULARY ITEM (Tiotropium Bromide (Spiriva) 1 CAP) IH SCH (09:00)
[2018-05-19] MEDS ORDERED: NON FORMULARY ITEM (Fluticasone/Salmeterol (Advair 500-50 Diskus) 1 PUFF) IH SCH (09:00)
[2018-05-19] MEDS: NICOTINE 7MG PATCH. TD SCH (09:00)
[2018-05-19] MEDS: TAMSULOSIN 0.4 MG CAP.ER.24H. PO SCH (09:31)
[2018-05-19] MEDS: PANTOPRAZOLE 40 MG TABLET.DR. PO SCH (09:31)
[2018-05-19] MEDS: SENNOSIDES 8.6 MG TABLET PO SCH ×2 (09:31→21:32)
[2018-05-19] MEDS: METOPROLOL TART IMMED RELEASE 25 MG TABLET. PO SCH ×2 (09:32→21:31)
[2018-05-19] MEDS: POTASSIUM CHLORIDE 10 MEQ TABLET.ER. PO SCH (09:32)
[2018-05-19] MEDS: FUROSEMIDE 20 MG TABLET PO SCH (09:32)
[2018-05-19 11:26] VITALS: BP 111/57
--- NOTE | 2018-05-19 14:25 | PDOC ---
PROGRESS NOTES Chief Complaint Chief Complaint 1. Acute on chronic hypoxemic hypercapnic respiratory failure. Silent aspiration, patient seen by speech therapy and changes to the consistency of his diet have been made with thickened equates. Most likely secondary to his respiratory effort he seems way improved ever since his diet was changed yesterday not very happy with the changes that I have explained the importance of following recommendations from speech therapy 2. Recent history of Pneumonia, completed treatment in our institution 3. Pulmonary fibrosis. 4. Tobacco dependence. 5. Gastroesophageal reflux. 6. Acute exacerbation of COPD Plan: Resume home medications Resume home inhalers We will monitor off antibiotics Encouraged more activity as tolerated Further recommendations will be based on the clinical course hopefully discharge in the next 24 to 48 hours. History of Present Illness History of Present Illness had a swallow evaluation yesterday and he needed an adjustment on the consistency of his liquids. Patient is not happy about the change, reassurances been provided and indicated the importance of continuing with this restrictions as per speech therapy given that if he is indeed aspirating this could be compromising his respiratory status going forward Vitals Vitals Vital Signs Date Time Temp Pulse Resp B/P (MAP) Pulse Ox O2 Delivery O2 Flow Rate FiO2 05/19/18 11:31 92 Nasal Cannula 3.0 05/19/18 11:26 98.1 97 19 111/57 (75) 98.1 Physical Exam Physical Exam Gen.: Reji Leo ill-appearing in no apparent distress Head: Normal shape atraumatic Eyes: Pupils equal reactive to light and accommodation, normal conjunctivae and lids Ears: Normal shape Nose: Normal shape no trauma Mouth: No exudates of the back of throat no thrush no lesions Neck: Supple no JVD no carotid bruit or lymphadenopathy no thyromegaly Chest: Lungs with generalized rails most likely secondary to his underlying fibrosis with good inspiratory effort no crackles or rhonchi Cardiovascular: S1-S2 regular rhythm no murmurs gallops or rubs Abdomen: Bowel sounds present soft nontender no hepatosplenomegaly appreciated sign Extremities: No clubbing no cyanosis no edema peripheral pulses palpated bilaterally Neurological: Alert awake oriented in person time place and situation, cranial nerves II through XII intact, no motor or sensory deficits appreciated Psych: Appropriate mood, cooperative Lungs: Other Review of Systems Review of Systems Pertinent as per history of present illness otherwise 14 point review of system is negative Assessment and Plan Assessmemt and Plan Problems Medical Problems: (1) COPD (chronic obstructive pulmonary disease) Status: Acute Comment Review of Relevant I have reviewed the following items zaire (where applicable) has been applied. Labs Laboratory Tests Test 05/17/18 20:21 05/17/18 22:09 05/18/18 06:00 White Blood Count 9.7 x10^3/uL (4.0-11.0) Red Blood Count 4.53 x10^6/uL (4.30-5.70) Hemoglobin 13.4 g/dL (13.0-17.5) Hematocrit 42.3 % (39.0-53.0) Mean Corpuscular Volume 93 fL (79-100) Mean Corpuscular Hemoglobin 30 pg (25-35) Mean Corpuscular Hemoglobin Concent 32 g/dL (31-37) Red Cell Distribution Width 14.3 % (11.5-14.5) Platelet Count 362 x10^3/uL (140-400) Neutrophils (%) (Auto) 73 % (31-73) Lymphocytes (%) (Auto) 16 % (24-48) Monocytes (%) (Auto) 8 % (0-9) Eosinophils (%) (Auto) 2 % (0-3) Basophils (%) (Auto) 1 % (0-3) Neutrophils # (Auto) 7.1 x10^3uL (1.8-7.7) Lymphocytes # (Auto) 1.5 x10^3/uL (1.0-4.8) Monocytes # (Auto) 0.8 x10^3/uL (0.0-1.1) Eosinophils # (Auto) 0.2 x10^3/uL (0.0-0.7) Basophils # (Auto) 0.1 x10^3/uL (0.0-0.2) Prothrombin Time 12.6 SEC (11.7-14.0) Prothromb Time International Ratio 1.0 (0.8-1.1) D-Dimer (Zoila) 1.67 ug/mlFEU (0.00-0.50) Sodium Level 137 mmol/L (136-145) Potassium Level 4.5 mmol/L (3.5-5.1) Chloride Level 96 mmol/L (98-107) Carbon Dioxide Level 37 mmol/L (21-32) Anion Gap 4 (6-14) Blood Urea Nitrogen 26 mg/dL (8-26) Creatinine 0.8 mg/dL (0.7-1.3) Estimated GFR (Cockcroft-Gault) 96.1 BUN/Creatinine Ratio 33 (6-20) Glucose Level 128 mg/dL (70-99) Lactic Acid Level 1.0 mmol/L (0.4-2.0) Calcium Level 9.3 mg/dL (8.5-10.1) Total Bilirubin 0.3 mg/dL (0.2-1.0) Aspartate Amino Transf (AST/SGOT) 43 U/L (15-37) Alanine Aminotransferase (ALT/SGPT) 100 U/L (16-63) Alkaline Phosphatase 108 U/L (46-116) Troponin I Quantitative < 0.017 ng/mL (0.000-0.055) HW-Uuq-W-Type Natriuretic Peptide 59 pg/mL (0-124) Total Protein 7.6 g/dL (6.4-8.2) Albumin 3.8 g/dL (3.4-5.0) Albumin/Globulin Ratio 1.0 (1.0-1.7) Procalcitonin < 0.10 ng/mL (0.00-0.10) O2 Saturation 90 % (92-99) Arterial Blood pH 7.36 (7.35-7.45) Arterial Blood pCO2 at Patient Temp 61 mmHg (35-46) Arterial Blood pO2 at Patient Temp 59 mmHg (65-108) Arterial Blood HCO3 34 mmol/L (21-28) Arterial Blood Base Excess 6 mmol/L (-3-3) FiO2 50 Nasal Screen MRSA (PCR) Negative (Negative) Microbiology 05/17/18 Blood Culture - Preliminary, Resulted NO GROWTH AFTER 1 DAY Medications Current Medications Albuterol/ Ipratropium (Duoneb) 3 ml 1X ONCE NEB Last administered on at 21:55; Start 05/17/18 at 22:15; Stop 05/17/18 at 22:16; Status DC Methylprednisolone Sodium Succinate (SOLU-Medrol 125MG VIAL) 125 mg 1X ONCE IV Last administered on 05/17/18at 22:22; Start 05/17/18 at 22:15; Stop 05/17/18 at 22:16; Status DC Albuterol/ Ipratropium (Duoneb) 3 ml STK-MED ONCE .ROUTE ; Start 05/17/18 at 21: 53; Stop 05/17/18 at 21:54; Status DC Piperacillin Sod/ Tazobactam Sod (Zosyn Per Pharmacy) 1 each PRN DAILY PRN MC SEE COMMENTS; Start 05/17/18 at 23:15; Stop 05/19/18 at 10:05; Status DC Albuterol/ Ipratropium (Duoneb) 3 ml RTQID NEB Last administered on 05/18/18at 20:07; Start 05/18/18 at 08:00; Stop 05/19/18 at 07:59; Status DC Vancomycin HCl (Vanco Per Pharmacy) 1 each PRN DAILY PRN MC SEE COMMENTS Last administered on 05/18/18at 09:37; Start 05/17/18 at 23:15; Stop 05/19/18 at 10:05 ; Status DC Vancomycin HCl 1.5 gm/Sodium Chloride 500 ml @ 250 mls/hr 1X ONCE IV Last administered on 05/17/18at 23:44; Start 05/17/18 at 23:30; Stop 05/18/18 at 01:29 ; Status DC Piperacillin Sod/ Tazobactam Sod 3.375 gm/Sodium Chloride 50 ml @ 100 mls/hr 1X ONCE IV Last administered on 05/17/18at 23:44; Start 05/17/18 at 23:30; Stop 05/17/18 at 23:59; Status DC Iohexol (Omnipaque 350 Mg/ml) 75 ml 1X ONCE IV Last administered on 05/18/18at 00:58; Start 05/18/18 at 00:30; Stop 05/18/18 at 00:31; Status DC Aspirin (Children'S Aspirin) 324 mg 1X ONCE PO Last administered on 05/18/18at 21:29; Start 05/18/18 at 00:30; Stop 05/18/18 at 00:31; Status DC Info (CONTRAST GIVEN -- Rx MONITORING) 1 each PRN DAILY PRN MC SEE COMMENTS; Start 05/17/18 at 23:45; Stop 05/19/18 at 23:44 Vancomycin HCl 1 gm/Sodium Chloride 250 ml @ 250 mls/hr Q12H IV Last administered on 05/19/18at 00:33; Start 05/18/18 at 12:00; Stop 05/19/18 at 10:05 ; Status DC Vancomycin HCl (Vancomycin Trough Level) 1 each 1X ONCE MC ; Start 05/19/18 at 11:30; Stop 05/19/18 at 11:30; Status DC Piperacillin Sod/ Tazobactam Sod 3.375 gm/Sodium Chloride 50 ml @ 100 mls/hr Q6HRS IV Last administered on 05/18/18at 06:15; Start 05/18/18 at 06:00; Stop at 09:40; Status DC Albuterol Sulfate (Ventolin Neb Soln) 2.5 mg PRN Q4HRS PRN NEB SHORTNESS OF BREATH Last administered on 05/18/18at 02:15; Start 05/18/18 at 02:30 Piperacillin Sod/ Tazobactam Sod 4.5 gm/Sodium Chloride 100 ml @ 200 mls/hr Q6HRS IV Last administered on 05/19/18at 05:09; Start 05/18/18 at 12:00; Stop at 10:04; Status DC Furosemide (Lasix) 20 mg DAILY PO Last administered on 05/19/18 09:32; Start 05/19/18 at 09:00 Albuterol/ Ipratropium (Duoneb) 3 ml RTQID NEB Last administered on 05/19/18at 11:31; Start 05/18/18 at 20:00 Metoprolol Tartrate (Lopressor) 12.5 mg BID PO Last administered on 05/19/18 09:32; Start 05/18/18 at 21:00 Pantoprazole Sodium (Protonix) 40 mg DAILY PO Last administered on 05/19/18 09 :31; Start 05/19/18 at 09:00 Potassium Chloride (Klor-Con) 10 meq DAILY PO Last administered on 05/19/18 09 :32; Start 05/19/18 at 09:00 Tamsulosin HCl (Flomax) 0.4 mg DAILY PO Last administered on 05/19/18at 09:31; Start 05/19/18 at 09:00 Non-Formulary Medication (Fluticasone/ Salmeterol (Advair 500-50 Diskus)) 1 puff DAILY IH ; Start 05/19/18 at 09:00; Stop 05/19/18 at 09:00; Status DC Al Hydroxide/Mg Hydroxide (Mylanta Plus Xs) 30 ml PRN Q6HRS PRN PO HEARTBURN / GAS; Start 05/18/18 at 19:45 Nicotine (Nicoderm Cq 7mg) 1 patch DAILY TD ; Start 05/19/18 at 09:00 Sennosides (Senna) 8.6 mg BID PO Last administered on 05/19/18at 09:31; Start at 21:00 Non-Formulary Medication (Tiotropium [place] (Spiriva)) 1 cap DAILY IH ; Start 05/19/18 at 09:00; Status UNV Budesonide (Pulmicort) 0.5 mg RTBID NEB Last administered on 05/19/18at 07:47; Start 05/18/18 at 20:00 Aspirin (Children'S Aspirin) 81 mg STK-MED ONCE .ROUTE ; Start 05/18/18 at 21:25 ; Stop 05/18/18 at 21:26; Status DC Aspirin (Children'S Aspirin) 81 mg STK-MED ONCE .ROUTE ; Start 05/18/18 at 21:29 ; Stop 05/18/18 at 21:30; Status DC Active Scripts Active Duoneb 0.5-3(2.5) Mg/3 Ml (Albuterol/Ipratropium) 3 Ml Ampul.neb 3 Ml NEB RTQID MDD 1 Reported Senna (Sennosides) 8.6 Mg Tablet 8.6 Mg PO BID NICODERM CQ 7mg (Nicotine) 1 Each Patch.td24 1 Patch TD DAILY Maalox Advanced Suspension (Mag Hydrox/Aluminum Hyd/Simeth) 355 Ml Oral.susp 355 Ml PO PRN Q6HRS PRN Protonix (Pantoprazole Sodium) 40 Mg Tablet.dr 40 Mg PO DAILY Potassium Chloride 10 Meq Capsule.er 10 Meq PO DAILY Lasix (Furosemide) 20 Mg Tablet 1 Tab PO DAILY Albuterol Sulfate Neb Soln (Albuterol Sulfate) 2.5 Mg/3 Ml Vial.neb 1 Vial NEB PRN Q4HRS Advair 500-50 Diskus (Fluticasone/Salmeterol) 1 Each Disk.w.dev 1 Puff IH DAILY Spiriva (Tiotropium [place]) 18 Mcg Cap.w.dev 1 Cap IH DAILY Flomax (Tamsulosin Hcl) 0.4 Mg Cap.er.24h 1 Cap PO DAILY Metoprolol Tartrate 25 Mg Tablet 12.5 Mg PO BID Vitals/I & O Vital Sign - Last 24 Hours 05/18/18 05/18/18 05/18/18 05/18/18 15:00 15:39 19:00 19:45 Temp 97.5 97.8 97.5 97.8 Pulse 98 99 Resp 22 21 B/P (MAP) 130/76 (94) 123/70 (87) Pulse Ox 92 95 96 O2 Delivery Room Air Nasal Cannula Nasal Cannula Nasal Cannula O2 Flow Rate 3.0 3.0 3.0 05/18/18 05/18/18 05/18/18 05/19/18 20:00 21:12 23:05 03:26 Temp 98.5 97.9 98.5 97.9 Pulse 99 94 87 Resp 18 B/P (MAP) 123/70 117/58 (77) 129/59 (82) Pulse Ox 98 97 O2 Delivery Nasal Cannula Nasal Cannula Venturi Mask O2 Flow Rate 4.0 3.0 9.0 05/19/18 05/19/18 05/19/18 05/19/18 07:07 07:48 07:52 09:32 Temp 97.7 97.7 Pulse 91 103 Resp 20 B/P (MAP) 128/67 (87) 128/67 Pulse Ox 95 95 O2 Delivery Venturi Mask Nasal Cannula Venturi Mask O2 Flow Rate 9.0 3.0 12.0 05/19/18 05/19/18 11:26 11:31 Temp 98.1 98.1 Pulse 97 Resp 19 B/P (MAP) 111/57 (75) Pulse Ox 93 92 O2 Delivery Nasal Cannula Nasal Cannula O2 Flow Rate 2.0 3.0 Intake and Output 05/18/18 05/18/18 05/19/18 15:00 23:00 07:00 Intake Total 500 ml 560 ml Output Total 450 ml 800 ml 350 ml Balance 50 ml -240 ml -350 ml MUSA HOYT MD May 19, 2018 14:25
[2018-05-19 15:00] VITALS: BP 113/63
[2018-05-19] MEDS ORDERED: SIMETHICONE 80 MG TAB.CHEW PO PRN (18:30)
[2018-05-19 19:25] VITALS: BP 138/71
[2018-05-19] MEDS ORDERED: ACETAMINOPHEN 500 MG TABLET PO PRN (21:15)
[2018-05-19] MEDS: LACTOBACILLUS RHAMNOSUS GG 1 CAPSULE. PO SCH (21:32)
[2018-05-19 22:32] VITALS: BP 109/57
[2018-05-20 03:23] VITALS: BP 107/56
[2018-05-20 07:00] VITALS: BP 149/68
[2018-05-20] MEDS: IPRATRPIUM/ALBUTEROL 0.5/2.5MG 3 ML NEBU. NEB SCH ×2 (07:23→10:42)
[2018-05-20] MEDS: BUDESONIDE 0.5 MG/2 ML NEBU. NEB SCH (07:24)
[2018-05-20] MEDS: LACTOBACILLUS RHAMNOSUS GG 1 CAPSULE. PO SCH (08:20)
[2018-05-20] MEDS: PANTOPRAZOLE 40 MG TABLET.DR. PO SCH (08:20)
[2018-05-20] MEDS: METOPROLOL TART IMMED RELEASE 25 MG TABLET. PO SCH (08:20)
[2018-05-20] MEDS: FUROSEMIDE 20 MG TABLET PO SCH (08:20)
[2018-05-20] MEDS: POTASSIUM CHLORIDE 10 MEQ TABLET.ER. PO SCH (08:21)
[2018-05-20] MEDS: TAMSULOSIN 0.4 MG CAP.ER.24H. PO SCH (08:21)
[2018-05-20] MEDS: SENNOSIDES 8.6 MG TABLET PO SCH (08:21)
[2018-05-20] MEDS: NICOTINE 7MG PATCH. TD SCH (08:43)
[2018-05-20] MEDS ORDERED: FLUTICASONE 50MCG/NASAL SPRAY 16GM BOTTLE. NS SCH (09:00)
--- NOTE | 2018-05-20 10:44 | PDOC ---
PROGRESS NOTES Chief Complaint Chief Complaint Recently admitted HERE for a similar episode of shortness of breath. On that occasion the patient was diagnosed with a pneumonia given the very slow progression on his last admission consultation with pulmonology was required. The patient needed BiPAP on and off during that hospital stay and given that the patient lived in a very precarious situation on a trailer arrangements were made to get him to have rehabilitation she was discharged with doxycycline and prednisone taper the night of the admission the patient complained of inability to catch his breath at the facility a pulse oximetry dropped into the 70s according to the patient. DIETETIC TECHNICIAN REGISTERED IMPRESSION 1. Acute on chronic hypoxemic hypercapnic respiratory failure. Silent aspiration, patient seen by speech therapy and changes to the consistency of his diet have been made with thickened equates. Most likely secondary to his respiratory effort he seems way improved ever since his diet was changed 05/18 not very happy with the changes that I have explained the importance of following recommendations from speech therapy 2. Recent history of Pneumonia, completed treatment in our institution 3. Pulmonary fibrosis. 4. Tobacco dependence. 5. Gastroesophageal reflux. 6. Acute exacerbation of COPD 7. Patchy nodular and groundglass opacities bilaterally. Could be infectious or inflammatory in nature but neoplastic causes are not excluded and a follow-up could be obtained to ensure no growth to exclude neoplasm. 8. lymphadenopathy within the mediastinum and hilum which can be followed at that time as well. This lymphadenopathy could be reactive in nature but neoplastic causes not excluded. Plan: Counseled on smoking permanent cessation agrees to stop long discussion Resume home medications Resume home inhalers We will monitor off antibiotics Encouraged more activity as tolerated Further recommendations will be based on the clinical course hopefully discharge in the next 24 to 48 hours. TO [facility] d/c planning 36 min History of Present Illness History of Present Illness had a swallow evaluation yesterday and he needed an adjustment on the consistency of his liquids. Patient is not happy about the change, reassurances been provided and indicated the importance of continuing with this restrictions as per speech therapy given that if he is indeed aspirating this could be compromising his respiratory status going forward Vitals Vitals Vital Signs Date Time Temp Pulse Resp B/P (MAP) Pulse Ox O2 Delivery O2 Flow Rate FiO2 05/20/18 08:20 105 05/20/18 07:24 93 Nasal Cannula 3.0 05/20/18 07:00 97.6 24 149/68 (95) 97.6 Physical Exam Physical Exam Gen.: appearing in no apparent distress Head: Normal shape atraumatic Eyes: Pupils equal reactive to light and accommodation, normal conjunctivae and lids Ears: Normal shape Nose: Normal shape no trauma Mouth: No exudates of the back of throat no thrush no lesions Neck: Supple no JVD no carotid bruit or lymphadenopathy no thyromegaly Chest: Lungs with generalized rails most likely secondary to his underlying fibrosis with good inspiratory effort no crackles or rhonchi Cardiovascular: S1-S2 regular rhythm no murmurs gallops or rubs Abdomen: Bowel sounds present soft nontender no hepatosplenomegaly appreciated sign Extremities: No clubbing no cyanosis no edema peripheral pulses palpated bilaterally Neurological: Alert awake oriented in person time place and situation, cranial nerves II through XII intact, no motor or sensory deficits appreciated Psych: Appropriate mood, cooperative General: Alert, Oriented X3, Cooperative, No acute distress Heart: Regular rate Lungs: Other (diminished) Extremities: No cyanosis, No edema Skin: No significant lesion Labs LABS PROCEDURE: CT ANGIOGRAPHY CHEST INDICATION: SOB, EVAL FOR PE; OMNI 350, 75ML COMPARISON: None. TECHNIQUE: Axial CT images obtained through the chest. Intravenous contrast utilized. Angiogram 3D images processed per protocol. One or more of the following individualized dose reduction techniques were utilized for this examination: 1. Automated exposure control; 2. Adjustment of the mA and/or kV according to patient size; 3. Use of iterative reconstruction technique. FINDINGS: Disorganized pulmonary markings bilaterally with cystic changes throughout the bilateral lungs. There are some patchy groundglass and nodular opacities as well. This includes at the right lower lung where there are some focal masslike opacities identified with a couple of them measuring up to approximately 11 mm. There is some peribronchial thickening. Debris is seen within the airways most severe at the right lung. Partial visualization of air at suspected partially visualized gallbladder. Small hiatal hernia. Enlarged lymph nodes within the mediastinum. Degenerative changes of spine. Portion of ascending thoracic aorta obscured by motion. Aortic root measures approximately 48 mm with a ascending thoracic aorta measuring up to about 36 mm. Coronary artery calcific atherosclerosis. No central pulmonary embolus. Limited peripherally by motion. IMPRESSION: No central pulmonary embolus. Limited peripherally by motion. There is debris within the airway is severe within the right lung. Would correlate with symptoms of aspiration. Patchy nodular and groundglass opacities bilaterally. Could be infectious or inflammatory in nature but neoplastic causes are not excluded and a follow-up could be obtained to ensure no growth to exclude neoplasm. The patient also has lymphadenopathy within the mediastinum and hilum which can be followed at that time as well. This lymphadenopathy could be reactive in nature but neoplastic causes not excluded. Cystic changes throughout the bilateral lungs which can be seen with chronic lung disease such as emphysema. Coronary artery calcific atherosclerosis. Assessment and Plan Assessmemt and Plan Problems Medical Problems: (1) COPD (chronic obstructive pulmonary disease) Status: Acute Comment Review of Relevant I have reviewed the following items zaire (where applicable) has been applied. Labs Microbiology 05/17/18 Blood Culture - Preliminary, Resulted NO GROWTH AFTER 2 DAYS Medications Current Medications Albuterol/ Ipratropium (Duoneb) 3 ml 1X ONCE NEB Last administered on at 21:55; Start 05/17/18 at 22:15; Stop 05/17/18 at 22:16; Status DC Methylprednisolone Sodium Succinate (SOLU-Medrol 125MG VIAL) 125 mg 1X ONCE IV Last administered on 05/17/18at 22:22; Start 05/17/18 at 22:15; Stop 05/17/18 at 22:16; Status DC Albuterol/ Ipratropium (Duoneb) 3 ml STK-MED ONCE .ROUTE ; Start 05/17/18 at 21: 53; Stop 05/17/18 at 21:54; Status DC Piperacillin Sod/ Tazobactam Sod (Zosyn Per Pharmacy) 1 each PRN DAILY PRN MC SEE COMMENTS; Start 05/17/18 at 23:15; Stop 05/19/18 at 10:05; Status DC Albuterol/ Ipratropium (Duoneb) 3 ml RTQID NEB Last administered on 05/18/18at 20:07; Start 05/18/18 at 08:00; Stop 05/19/18 at 07:59; Status DC Vancomycin HCl (Vanco Per Pharmacy) 1 each PRN DAILY PRN MC SEE COMMENTS Last administered on 05/18/18at 09:37; Start 05/17/18 at 23:15; Stop 05/19/18 at 10:05 ; Status DC Vancomycin HCl 1.5 gm/Sodium Chloride 500 ml @ 250 mls/hr 1X ONCE IV Last administered on 05/17/18at 23:44; Start 05/17/18 at 23:30; Stop 05/18/18 at 01:29 ; Status DC Piperacillin Sod/ Tazobactam Sod 3.375 gm/Sodium Chloride 50 ml @ 100 mls/hr 1X ONCE IV Last administered on 05/17/18at 23:44; Start 05/17/18 at 23:30; Stop 05/17/18 at 23:59; Status DC Iohexol (Omnipaque 350 Mg/ml) 75 ml 1X ONCE IV Last administered on 05/18/18at 00:58; Start 05/18/18 at 00:30; Stop 05/18/18 at 00:31; Status DC Aspirin (Children'S Aspirin) 324 mg 1X ONCE PO Last administered on 05/18/18at 21:29; Start 05/18/18 at 00:30; Stop 05/18/18 at 00:31; Status DC Info (CONTRAST GIVEN -- Rx MONITORING) 1 each PRN DAILY PRN MC SEE COMMENTS; Start 05/17/18 at 23:45; Stop 05/19/18 at 23:44; Status DC Vancomycin HCl 1 gm/Sodium Chloride 250 ml @ 250 mls/hr Q12H IV Last administered on 05/19/18at 00:33; Start 05/18/18 at 12:00; Stop 05/19/18 at 10:05 ; Status DC Vancomycin HCl (Vancomycin Trough Level) 1 each 1X ONCE MC ; Start 05/19/18 at 11:30; Stop 05/19/18 at 11:30; Status DC Piperacillin Sod/ Tazobactam Sod 3.375 gm/Sodium Chloride 50 ml @ 100 mls/hr Q6HRS IV Last administered on 05/18/18at 06:15; Start 05/18/18 at 06:00; Stop at 09:40; Status DC Albuterol Sulfate (Ventolin Neb Soln) 2.5 mg PRN Q4HRS PRN NEB SHORTNESS OF BREATH Last administered on 05/18/18at 02:15; Start 05/18/18 at 02:30 Piperacillin Sod/ Tazobactam Sod 4.5 gm/Sodium Chloride 100 ml @ 200 mls/hr Q6HRS IV Last administered on 05/19/18at 05:09; Start 05/18/18 at 12:00; Stop at 10:04; Status DC Furosemide (Lasix) 20 mg DAILY PO Last administered on 05/20/18at 08:20; Start 05/19/18 at 09:00 Albuterol/ Ipratropium (Duoneb) 3 ml RTQID NEB Last administered on 05/20/18at 10:42; Start 05/18/18 at 20:00 Metoprolol Tartrate (Lopressor) 12.5 mg BID PO Last administered on 05/20/18 08:20; Start 05/18/18 at 21:00 Pantoprazole Sodium (Protonix) 40 mg DAILY PO Last administered on 05/20/18 08 :20; Start 05/19/18 at 09:00 Potassium Chloride (Klor-Con) 10 meq DAILY PO Last administered on 05/20/18at 08 :21; Start 05/19/18 at 09:00 Tamsulosin HCl (Flomax) 0.4 mg DAILY PO Last administered on 05/20/18at 08:21; Start 05/19/18 at 09:00 Non-Formulary Medication (Fluticasone/ Salmeterol (Advair 500-50 Diskus)) 1 puff DAILY IH ; Start 05/19/18 at 09:00; Stop 05/19/18 at 09:00; Status DC Al Hydroxide/Mg Hydroxide (Mylanta Plus Xs) 30 ml PRN Q6HRS PRN PO HEARTBURN / GAS Last administered on 05/19/18at 15:03; Start 05/18/18 at 19:45 Nicotine (Nicoderm Cq 7mg) 1 patch DAILY TD ; Start 05/19/18 at 09:00 Sennosides (Senna) 8.6 mg BID PO Last administered on 05/20/18 08:21; Start at 21:00 Non-Formulary Medication (Tiotropium [place] (Spiriva)) 1 cap DAILY IH ; Start 05/19/18 at 09:00; Status UNV Budesonide (Pulmicort) 0.5 mg RTBID NEB Last administered on 05/20/18at 07:24; Start 05/18/18 at 20:00 Aspirin (Children'S Aspirin) 81 mg STK-MED ONCE .ROUTE ; Start 05/18/18 at 21:25 ; Stop 05/18/18 at 21:26; Status DC Aspirin (Children'S Aspirin) 81 mg STK-MED ONCE .ROUTE ; Start 05/18/18 at 21:29 ; Stop 05/18/18 at 21:30; Status DC Lactobacillus Rhamnosus (Culturelle) 1 cap BID PO Last administered on at 08:20; Start 05/19/18 at 21:00 Simethicone (Gas-X) 80 mg PRN AFTMEALHC PRN PO GAS / BLOATING Last administered on 05/19/18at 18:38; Start 05/19/18 at 18:30 Acetaminophen (Tylenol) 500 mg PRN Q6HRS PRN PO MILD PAIN / TEMP Last administered on 05/19/18at 21:31; Start 05/19/18 at 21:15 Fluticasone Propionate (Flonase) 2 spray DAILY NS Last administered on at 08:25; Start 05/20/18 at 09:00 Active Scripts Active Duoneb 0.5-3(2.5) Mg/3 Ml (Albuterol/Ipratropium) 3 Ml Ampul.neb 3 Ml NEB RTQID MDD 1 Reported Senna (Sennosides) 8.6 Mg Tablet 8.6 Mg PO BID NICODERM CQ 7mg (Nicotine) 1 Each Patch.td24 1 Patch TD DAILY Maalox Advanced Suspension (Mag Hydrox/Aluminum Hyd/Simeth) 355 Ml Oral.susp 355 Ml PO PRN Q6HRS PRN Protonix (Pantoprazole Sodium) 40 Mg Tablet.dr 40 Mg PO DAILY Potassium Chloride 10 Meq Capsule.er 10 Meq PO DAILY Lasix (Furosemide) 20 Mg Tablet 1 Tab PO DAILY Albuterol Sulfate Neb Soln (Albuterol Sulfate) 2.5 Mg/3 Ml Vial.neb 1 Vial NEB PRN Q4HRS Advair 500-50 Diskus (Fluticasone/Salmeterol) 1 Each Disk.w.dev 1 Puff IH DAILY Spiriva (Tiotropium [place]) 18 Mcg Cap.w.dev 1 Cap IH DAILY Flomax (Tamsulosin Hcl) 0.4 Mg Cap.er.24h 1 Cap PO DAILY Metoprolol Tartrate 25 Mg Tablet 12.5 Mg PO BID Vitals/I & O Vital Sign - Last 24 Hours 05/19/18 05/19/18 05/19/18 05/19/18 11:26 11:31 15:00 15:17 Temp 98.1 98.2 98.1 98.2 Pulse 97 100 Resp 19 18 B/P (MAP) 111/57 (75) 113/63 (80) Pulse Ox 93 92 92 93 O2 Delivery Nasal Cannula Nasal Cannula Nasal Cannula Nasal Cannula O2 Flow Rate 2.0 3.0 2.0 3.0 05/19/18 05/19/18 05/19/18 05/19/18 19:25 20:00 20:11 21:31 Temp 98.5 98.5 Pulse 109 109 Resp 18 B/P (MAP) 138/71 (93) 138/71 Pulse Ox 93 94 O2 Delivery Nasal Cannula Nasal Cannula Nasal Cannula O2 Flow Rate 2.0 4.0 3.0 05/19/18 05/20/18 05/20/18 05/20/18 22:32 03:23 07:00 07:24 Temp 98.2 98.2 97.6 98.2 98.2 97.6 Pulse 91 90 101 Resp 18 18 24 B/P (MAP) 109/57 (74) 107/56 (73) 149/68 (95) Pulse Ox 95 95 91 93 O2 Delivery Nasal Cannula Venturi Mask Nasal Cannula Nasal Cannula O2 Flow Rate 2.0 9.0 3.0 3.0 05/20/18 08:20 Pulse 105 Intake and Output 05/19/18 05/19/18 05/20/18 14:59 22:59 06:59 Intake Total 770 ml 420 ml Output Total 1100 ml 350 ml 950 ml Balance -330 ml 70 ml -950 ml GARY BAEZ MD May 20, 2018 10:44
[2018-05-20 10:53] VITALS: BP 114/72
--- NOTE | 2018-05-20 11:02 | PDOC3 ---
Discharge Summary Date of Admission: May 18, 2018 Date of Discharge: May 20, 2018 Follow-Up: 1-2 days Admitting Diagnosis comment: discharge dx 1. Acute on chronic hypoxemic hypercapnic respiratory failure. Silent aspiration, patient seen by speech therapy and changes to the consistency of his diet have been made with thickened equates. Most likely secondary to his respiratory effort he seems way improved ever since his diet was changed 05/18 not very happy with the changes that I have explained the importance of following recommendations from speech therapy 2. Recent history of Pneumonia, completed treatment in our institution 3. Pulmonary fibrosis. 4. Tobacco dependence. 5. Gastroesophageal reflux. 6. Acute exacerbation of COPD 7. Patchy nodular and groundglass opacities bilaterally. Could be infectious or inflammatory in nature but neoplastic causes are not excluded and a follow-up could be obtained to ensure no growth to exclude neoplasm. 8. lymphadenopathy within the mediastinum and hilum which can be followed at that time as well. This lymphadenopathy could be reactive in nature but neoplastic causes not excluded. 9. Cystic changes throughout the bilateral lungs seen with chronic lung disease such as emphysema. Plan: Counseled on smoking permanent cessation agrees to stop long discussion Resume home medications Resume home inhalers We will monitor off antibiotics Encouraged more activity as tolerated Further recommendations will be based on the clinical course hopefully discharge today TO [facility] to continue BIPAP PRN d/c planning 36 min History of Present Illness History of Present Illness had a swallow evaluation yesterday and he needed an adjustment on the consistency of his liquids. Patient is not happy about the change, reassurances been provided and indicated the importance of continuing with this restrictions as per speech therapy given that if he is indeed aspirating this could be compromising his respiratory status Vitals Vitals Vital Signs Date Time Temp Pulse Resp B/P (MAP) Pulse Ox O2 Delivery O2 Flow Rate FiO2 05/20/18 08:20 105 05/20/18 07:24 93 Nasal Cannula 3.0 05/20/18 07:00 97.6 24 149/68 (95) 97.6 Physical Exam Physical Exam Gen.: appearing in no apparent distress Head: Normal shape atraumatic Eyes: Pupils equal reactive to light and accommodation, normal conjunctivae and lids Ears: Normal shape Nose: Normal shape no trauma Mouth: No exudates of the back of throat no thrush no lesions Neck: Supple no JVD no carotid bruit or lymphadenopathy no thyromegaly Chest: Lungs with generalized rails most likely secondary to his underlying fibrosis with good inspiratory effort no crackles or rhonchi Cardiovascular: S1-S2 regular rhythm no murmurs gallops or rubs Abdomen: Bowel sounds present soft nontender no hepatosplenomegaly appreciated sign Extremities: No clubbing no cyanosis no edema peripheral pulses palpated bilaterally Neurological: Alert awake oriented in person time place and situation, cranial nerves II through XII intact, no motor or sensory deficits appreciated Psych: Appropriate mood, cooperative General: Alert, Oriented X3, Cooperative, No acute distress Heart: Regular rate Lungs: Other (diminished) Extremities: No cyanosis, No edema Skin: No significant lesion Labs LABS PROCEDURE: CT ANGIOGRAPHY CHEST INDICATION: SOB, EVAL FOR PE; OMNI 350, 75ML COMPARISON: None. TECHNIQUE: Axial CT images obtained through the chest. Intravenous contrast utilized. Angiogram 3D images processed per protocol. One or more of the following individualized dose reduction techniques were utilized for this examination: 1. Automated exposure control; 2. Adjustment of the mA and/or kV according to patient size; 3. Use of iterative reconstruction technique. FINDINGS: Disorganized pulmonary markings bilaterally with cystic changes throughout the bilateral lungs. There are some patchy groundglass and nodular opacities as well. This includes at the right lower lung where there are some focal masslike opacities identified with a couple of them measuring up to approximately 11 mm. There is some peribronchial thickening. Debris is seen within the airways most severe at the right lung. Partial visualization of air at suspected partially visualized gallbladder. Small hiatal hernia. Enlarged lymph nodes within the mediastinum. Degenerative changes of spine. Portion of ascending thoracic aorta obscured by motion. Aortic root measures approximately 48 mm with a ascending thoracic aorta measuring up to about 36 mm. Coronary artery calcific atherosclerosis. No central pulmonary embolus. Limited peripherally by motion. IMPRESSION: No central pulmonary embolus. Limited peripherally by motion. There is debris within the airway is severe within the right lung. Would correlate with symptoms of aspiration. Patchy nodular and groundglass opacities bilaterally. Could be infectious or inflammatory in nature but neoplastic causes are not excluded and a follow-up could be obtained to ensure no growth to exclude neoplasm. The patient also has lymphadenopathy within the mediastinum and hilum which can be followed at that time as well. This lymphadenopathy could be reactive in nature but neoplastic causes not excluded. Cystic changes throughout the bilateral lungs which can be seen with chronic lung disease such as emphysema. Coronary artery calcific atherosclerosis. FINAL DIAGNOSIS Problems Medical Problems: (1) COPD (chronic obstructive pulmonary disease) Status: Acute Brief Hospital Course Mr. Romeor is a 67 old [sex] who presented with [ copd exac , severe] CONDITION AT DISCHARGE: Improved Discharge Medications Current Medications Albuterol/ Ipratropium (Duoneb) 3 ml 1X ONCE NEB Last administered on at 21:55; Start 05/17/18 at 22:15; Stop 05/17/18 at 22:16; Status DC Methylprednisolone Sodium Succinate (SOLU-Medrol 125MG VIAL) 125 mg 1X ONCE IV Last administered on 05/17/18at 22:22; Start 05/17/18 at 22:15; Stop 05/17/18 at 22:16; Status DC Albuterol/ Ipratropium (Duoneb) 3 ml STK-MED ONCE .ROUTE ; Start 05/17/18 at 21: 53; Stop 05/17/18 at 21:54; Status DC Piperacillin Sod/ Tazobactam Sod (Zosyn Per Pharmacy) 1 each PRN DAILY PRN MC SEE COMMENTS; Start 05/17/18 at 23:15; Stop 05/19/18 at 10:05; Status DC Albuterol/ Ipratropium (Duoneb) 3 ml RTQID NEB Last administered on 05/18/18at 20:07; Start 05/18/18 at 08:00; Stop 05/19/18 at 07:59; Status DC Vancomycin HCl (Vanco Per Pharmacy) 1 each PRN DAILY PRN MC SEE COMMENTS Last administered on 05/18/18at 09:37; Start 05/17/18 at 23:15; Stop 05/19/18 at 10:05 ; Status DC Vancomycin HCl 1.5 gm/Sodium Chloride 500 ml @ 250 mls/hr 1X ONCE IV Last administered on 05/17/18at 23:44; Start 05/17/18 at 23:30; Stop 05/18/18 at 01:29 ; Status DC Piperacillin Sod/ Tazobactam Sod 3.375 gm/Sodium Chloride 50 ml @ 100 mls/hr 1X ONCE IV Last administered on 05/17/18at 23:44; Start 05/17/18 at 23:30; Stop 05/17/18 at 23:59; Status DC Iohexol (Omnipaque 350 Mg/ml) 75 ml 1X ONCE IV Last administered on 05/18/18at 00:58; Start 05/18/18 at 00:30; Stop 05/18/18 at 00:31; Status DC Aspirin (Children'S Aspirin) 324 mg 1X ONCE PO Last administered on 05/18/18at 21:29; Start 05/18/18 at 00:30; Stop 05/18/18 at 00:31; Status DC Info (CONTRAST GIVEN -- Rx MONITORING) 1 each PRN DAILY PRN MC SEE COMMENTS; Start 05/17/18 at 23:45; Stop 05/19/18 at 23:44; Status DC Vancomycin HCl 1 gm/Sodium Chloride 250 ml @ 250 mls/hr Q12H IV Last administered on 05/19/18at 00:33; Start 05/18/18 at 12:00; Stop 05/19/18 at 10:05 ; Status DC Vancomycin HCl (Vancomycin Trough Level) 1 each 1X ONCE MC ; Start 05/19/18 at 11:30; Stop 05/19/18 at 11:30; Status DC Piperacillin Sod/ Tazobactam Sod 3.375 gm/Sodium Chloride 50 ml @ 100 mls/hr Q6HRS IV Last administered on 05/18/18at 06:15; Start 05/18/18 at 06:00; Stop at 09:40; Status DC Albuterol Sulfate (Ventolin Neb Soln) 2.5 mg PRN Q4HRS PRN NEB SHORTNESS OF BREATH Last administered on 05/18/18at 02:15; Start 05/18/18 at 02:30 Piperacillin Sod/ Tazobactam Sod 4.5 gm/Sodium Chloride 100 ml @ 200 mls/hr Q6HRS IV Last administered on 05/19/18at 05:09; Start 05/18/18 at 12:00; Stop at 10:04; Status DC Furosemide (Lasix) 20 mg DAILY PO Last administered on 05/20/18at 08:20; Start 05/19/18 at 09:00 Albuterol/ Ipratropium (Duoneb) 3 ml RTQID NEB Last administered on 05/20/18at 10:42; Start 05/18/18 at 20:00 Metoprolol Tartrate (Lopressor) 12.5 mg BID PO Last administered on 05/20/18at 08:20; Start 05/18/18 at 21:00 Pantoprazole Sodium (Protonix) 40 mg DAILY PO Last administered on 05/20/18at 08 :20; Start 05/19/18 at 09:00 Potassium Chloride (Klor-Con) 10 meq DAILY PO Last administered on 05/20/18at 08 :21; Start 05/19/18 at 09:00 Tamsulosin HCl (Flomax) 0.4 mg DAILY PO Last administered on 05/20/18at 08:21; Start 05/19/18 at 09:00 Non-Formulary Medication (Fluticasone/ Salmeterol (Advair 500-50 Diskus)) 1 puff DAILY IH ; Start 05/19/18 at 09:00; Stop 05/19/18 at 09:00; Status DC Al Hydroxide/Mg Hydroxide (Mylanta Plus Xs) 30 ml PRN Q6HRS PRN PO HEARTBURN / GAS Last administered on 05/19/18at 15:03; Start 05/18/18 at 19:45 Nicotine (Nicoderm Cq 7mg) 1 patch DAILY TD ; Start 05/19/18 at 09:00 Sennosides (Senna) 8.6 mg BID PO Last administered on 05/20/18at 08:21; Start at 21:00 Non-Formulary Medication (Tiotropium [place] (Spiriva)) 1 cap DAILY IH ; Start 05/19/18 at 09:00; Status UNV Budesonide (Pulmicort) 0.5 mg RTBID NEB Last administered on 05/20/18at 07:24; Start 05/18/18 at 20:00 Aspirin (Children'S Aspirin) 81 mg STK-MED ONCE .ROUTE ; Start 05/18/18 at 21:25 ; Stop 05/18/18 at 21:26; Status DC Aspirin (Children'S Aspirin) 81 mg STK-MED ONCE .ROUTE ; Start 05/18/18 at 21:29 ; Stop 05/18/18 at 21:30; Status DC Lactobacillus Rhamnosus (Culturelle) 1 cap BID PO Last administered on at 08:20; Start 05/19/18 at 21:00 Simethicone (Gas-X) 80 mg PRN AFTMEALHC PRN PO GAS / BLOATING Last administered on 05/19/18at 18:38; Start 05/19/18 at 18:30 Acetaminophen (Tylenol) 500 mg PRN Q6HRS PRN PO MILD PAIN / TEMP Last administered on 05/19/18at 21:31; Start 05/19/18 at 21:15 Fluticasone Propionate (Flonase) 2 spray DAILY NS Last administered on at 08:25; Start 05/20/18 at 09:00 Active Scripts Active Duoneb 0.5-3(2.5) Mg/3 Ml (Albuterol/Ipratropium) 3 Ml Ampul.neb 3 Ml NEB RTQID MDD 1 Reported Senna (Sennosides) 8.6 Mg Tablet 8.6 Mg PO BID NICODERM CQ 7mg (Nicotine) 1 Each Patch.td24 1 Patch TD DAILY Maalox Advanced Suspension (Mag Hydrox/Aluminum Hyd/Simeth) 355 Ml Oral.susp 355 Ml PO PRN Q6HRS PRN Protonix (Pantoprazole Sodium) 40 Mg Tablet.dr 40 Mg PO DAILY Potassium Chloride 10 Meq Capsule.er 10 Meq PO DAILY Lasix (Furosemide) 20 Mg Tablet 1 Tab PO DAILY Albuterol Sulfate Neb Soln (Albuterol Sulfate) 2.5 Mg/3 Ml Vial.neb 1 Vial NEB PRN Q4HRS Advair 500-50 Diskus (Fluticasone/Salmeterol) 1 Each Disk.w.dev 1 Puff IH DAILY Spiriva (Tiotropium [place]) 18 Mcg Cap.w.dev 1 Cap IH DAILY Flomax (Tamsulosin Hcl) 0.4 Mg Cap.er.24h 1 Cap PO DAILY Metoprolol Tartrate 25 Mg Tablet 12.5 Mg PO BID Vital Signs Vital Signs Date Time Temp Pulse Resp B/P (MAP) Pulse Ox O2 Delivery O2 Flow Rate FiO2 05/20/18 08:20 105 05/20/18 07:24 93 Nasal Cannula 3.0 05/20/18 07:00 97.6 24 149/68 (95) 97.6 Allergies Allergies Coded Allergies Type Severity Reaction Last Updated Verified morphine Adverse Reaction Intermediate Itching 04/14/16 Yes Disposition/Orders: Other (to snf bed) Patient Instructions D/C PLANNING 36 MIN GARY BAEZ MD May 20, 2018 11:02
[2018-05-20] MEDS ORDERED: SIME80TA14 PO (11:05)
[2018-05-20] MEDS ORDERED: LACT1CAP19 PO (11:05)
--- NOTE | 2018-05-20 11:06 | SNU/HH DC ---
DISCHARGE ORDERS DISCHARGE INFORMATION: FINAL DIAGNOSIS Problems Medical Problems: (1) COPD (chronic obstructive pulmonary disease) Status: Acute CONDITION ON DISCHARGE: Stable CODE STATUS: Code Status: Full DETENTION: SNF STAY <30 DAYS: Yes HOSPICE: HOSPICE: No HOSPICE EVAL & TREAT: No LTAC: ADMIT TO LTAC: No POST DISCHARGE ORDERS: ACTIVITY ORDERS: Activity as tolerated WEIGHT BEARING STATUS: As tolerated DIET AFTER DISCHARGE: Regular WOUND/INCISION CARE: No wound care needed CHECKS AFTER DISCHARGE: CHECKS AFTER DISCHARGE: Check blood press - daily, Check blood sugar, ac/hs TREATMENT/EQUIPMENT ORDERS: ADAPTIVE EQUIPMENT NEEDED: None RESPIRATORY EQUIPMENT NEEDED: Oxygen, BiPAP Physical Therapy For: Evalulation/Treatment Occupational Therapy For: Evaluation/Treatment Speech Language Pathology For: Evaluation/Treatment DISCHARGE MEDICATIONS: Home Meds Active Scripts Lactobacillus Rhamnosus Gg (CULTURELLE) 1 Each Cap.sprink, 1 CAP PO BID for GI SUPPLEMENT for 14 Days, #28 CAP Prov:GARY BAEZ MD 05/20/18 Simethicone (SIMETHICONE) 80 Mg Tab.chew, 80 MG PO PRN AFTMEALHC PRN for GAS / BLOATING for 14 Days, #30 TAB.CHEW Prov:GARY BAEZ MD 05/20/18 Ipratropium/Albuterol Sulfate (DUONEB 0.5-3(2.5) MG/3 ML) 3 Ml Ampul.neb, 3 ML NEB RTQID for copd MDD 1, #30 EACH Prov:ALBERT MONTEZ MD 05/10/18 Reported Medications Sennosides (SENNA) 8.6 Mg Tablet, 8.6 MG PO BID for constipation, TAB 05/18/18 Nicotine (NICODERM CQ 7mg) 1 Each Patch.td24, 1 PATCH TD DAILY for smoking cessation, PATCH 05/18/18 Mag Hydrox/Aluminum Hyd/Simeth (Maalox Advanced Suspension) 355 Ml Oral.susp, 355 ML PO PRN Q6HRS PRN for HEARTBURN / GAS, MISC 05/18/18 Pantoprazole Sodium (PROTONIX) 40 Mg Tablet.dr, 40 MG PO DAILY, TAB 1 Refill 11/18/15 Potassium Chloride (POTASSIUM CHLORIDE) 10 Meq Capsule.er, 10 MEQ PO DAILY, TAB.SR 11/18/15 Furosemide (LASIX) 20 Mg Tablet, 1 TAB PO DAILY, #90 TAB 1 Refill 11/18/15 Fluticasone/Salmeterol (ADVAIR 500-50 DISKUS) 1 Each Disk.w.dev, 1 PUFF IH DAILY , #1 INHALER 5 Refills 10/11/15 Tiotropium Sabine (SPIRIVA) 18 Mcg Cap.w.dev, 1 CAP IH DAILY, #30 CAP 3 Refills 10/11/15 Tamsulosin Hcl (FLOMAX) 0.4 Mg Cap.er.24h, 1 CAP PO DAILY, #30 CAP 11 Refills 10/11/15 Metoprolol Tartrate (METOPROLOL TARTRATE) 25 Mg Tablet, 12.5 MG PO BID, #180 TAB 1 Refill 10/11/15 Discontinued Reported Medications Albuterol Sulfate (ALBUTEROL SULFATE NEB SOLN) 2.5 Mg/3 Ml Vial.neb, 1 VIAL NEB PRN Q4HRS, #50 VIAL 10/11/15 GARY BAEZ MD May 20, 2018 11:06
[2018-05-20] MEDS ORDERED: DOXY100C2 PO (11:09)
--- NOTE | 2018-05-20 11:17 | NUR ---
SS following up with discharge planning. Discharge orders received for return to [facility]. SS phoned and faxed discharge orders and clinical to [facility], ; fax [phone]. Pt will discharge today and go to [facility]. [facility] to arrange transport. Pt and pt's RN notified. SS attempted to contact pt's sister, Susana Buck, to notify but received no answer and was not provided with option to leave voicemail. Pt's RN notified.
[2018-05-20] MEDS ORDERED: LEVO500T59 PO (13:00)
--- NOTE | 2018-05-20 13:20 | NUR ---
Discharge: Report called to [facility] [phone] spoke with Yuliana. IV removed, catheter tip in-tact. Reviewed orders and plan of care, medications, follow-up, ect. Copy of chart sent with patient. Script for Radhauin sent with patient. All belongings with patient. Patient assisted off of unit via wheelchair accompanied by transport.
--- NOTE | 2018-05-20 13:25 | CONS ---
DATE OF CONSULTATION: ATTENDING PHYSICIAN: Dr. Olson. REASON FOR CONSULTATION: Abnormal CT chest, dyspnea. HISTORY OF PRESENT ILLNESS: The patient is a 67-year-old who has history of oxygen-dependent COPD. He smoked for 40 years. He just quit 2 days ago. He came into the hospital with increasing shortness of breath. He states that he was having his physical therapy, and he thought that he was pushed a bit more harder. The patient has been having cough with purulent sputum production. He was seen by a physician at [facility] and was prescribed doxycycline, and he kept refilling that as an outpatient. He was noted to be hypoxic on arrival with saturations in the 70s. The patient underwent CT chest, which was reviewed by me. There was no evidence of central pulmonary embolism. There were patchy ground-glass and alveolar opacities, especially in the left upper lobe, more likely consistent with pneumonitis. There was debris in the right mainstem bronchus consistent with mucus. There was evidence of severe emphysema. Cardiology saw the patient and has been dismissed. He is currently on his home oxygen at 3 liters, saturation of 94%. Denies any headaches, no nausea, vomiting, no diarrhea, no dysuria, no focal weakness. No leg edema. PAST MEDICAL HISTORY: History of oxygen-dependent COPD with chronic respiratory failure. Pneumonia. PAST SURGICAL HISTORY: No recent surgeries. ALLERGIES: MORPHINE. FAMILY HISTORY: Hypertension. SOCIAL HISTORY: Smoker for 40 years, quit 2 days ago. CURRENT MEDICATIONS: Reviewed as listed in the MRAD including DuoNeb. PHYSICAL EXAMINATION: VITAL SIGNS: Reviewed. Pulse ox 94% on 3 liters. NECK: Supple. LUNGS: Diminished breath sounds bilaterally, no wheezing. CARDIOVASCULAR: Regular rate and rhythm. ABDOMEN: Soft, nontender. EXTREMITIES: With no pitting edema. LABORATORY DATA: Reviewed. White cell count 9.7, hemoglobin 13.4. ABGs with a pH of 7.36, pCO2 of 61, pO2 of 59 on 50% FiO2. IMPRESSION: 1. Acute on chronic hypoxic respiratory failure secondary to acute exacerbation of chronic obstructive pulmonary disease and mild patchy pneumonitis. He also has mucus debris in distal right mainstem bronchus. 2. 40 years of tobacco use, just quit 2 days ago, on home oxygen at 2 L, with 3 liters with exertion, now comes in with increased dyspnea, highly likely has severe chronic obstructive pulmonary disease. 3. Abnormal CT chest as discussed above. More consistent with pneumonitis and mucus debris, along with severe emphysema. RECOMMENDATIONS: 1. Continue with present oxygen 2-3 liters. 2. Since the patient has failed oral doxycycline, I will discharge him on oral Levaquin. He has been spitting of yellow sputum. 3. Continue present diabetes. 4. Continue bronchodilators. 5. I have given him a followup with me in the office. The patient has stated that he has transportation issues and does not guarantee that he will make it. However, he will call my office to set up an appointment. I may repeat a CT chest in few months. Discussed with RN. PAULA HAYNES MD DR: EUN/joshua JOB#: [id number] / [id number]
== END 2018-05-20 13:15 | disposition home or self-care (01) | DRG 177 ==
LOC: ER 21:44 → 2 NORTH 23:01
PROVIDERS: ADMIT Internal Medicine; ATTEND Internal Medicine
PROC: 5A09357 Assistance with Respiratory Ventilation, Less than 24 Consecutive Hours, Continuous Positive Airway Pressure (ICD-10-PCS; principal; 2018-05-17)
PROC: 5A09357 Assistance with Respiratory Ventilation, Less than 24 Consecutive Hours, Continuous Positive Airway Pressure (ICD-10-PCS; 2018-05-18)
DX: J69.0 Pneumonitis due to inhalation of food and vomit (principal); J96.22 Acute and chronic respiratory failure with hypercapnia; J96.21 Acute and chronic respiratory failure with hypoxia; J44.1 Chronic obstructive pulmonary disease with (acute) exacerbation; J44.0 Chronic obstructive pulmonary disease with (acute) lower respiratory infection; J15.6 Pneumonia due to other Gram-negative bacteria; J15.9 Unspecified bacterial pneumonia; I50.9 Heart failure, unspecified; J84.10 Pulmonary fibrosis, unspecified; Z99.81 Dependence on supplemental oxygen; K21.9 Gastro-esophageal reflux disease without esophagitis; N40.0 Benign prostatic hyperplasia without lower urinary tract symptoms; F17.200 Nicotine dependence, unspecified, uncomplicated; Z87.01 Personal history of pneumonia (recurrent); Z88.5 Allergy status to narcotic agent; Z82.49 Family history of ischemic heart disease and other diseases of the circulatory system
CPT/HCPCS: 36415; 36600; 71045; 71275; 80053; 82805; 83605; 83880; 84145; 84484; 85025; 85379; 85610; 87040; 87641; 93005; 94640; 94660; 94667; 94760; 96365; 96366; 96368; 99291; 99406; J2543; J2930; J3370; J7040; J7050; J7613; J7620; J7626; Q9967; 92526; 92610; 97110; 97530; 97535; J7030

== ENCOUNTER 2018-07-12 20:27 | Inpatient (IN) | payer MEDICARE ==
[~2018-07-12] VITALS: Ht 170.2 cm; Wt 59.4 kg
[~2018-07-12 20:27] MED LIST changes: +DOXY100C2 PO; +LACT1CAP19 PO; +LEVO500T59 PO; +MAG355OR11 PO; +NICO1PAT27 TD; +SENN-80 PO; +SIME80TA14 PO
[2018-07-12] MEDS ORDERED: IPRATRPIUM/ALBUTEROL 0.5/2.5MG 3 ML NEBU. ONE (20:38)
[2018-07-12] MEDS ORDERED: IPRATRPIUM/ALBUTEROL 0.5/2.5MG 3 ML NEBU. NEB ONE (20:45)
[2018-07-12] MEDS ORDERED: methylPREDNISolone SOD SUCC PF 125 MG/2 ML VIAL. IV ONE (20:45)
[2018-07-12] MEDS ORDERED: FUROSEMIDE 20 MG/2 ML VIAL. IVP ONE (20:45)
[2018-07-12 21:07] LABS: BASO % 1 % (0-3); EOS # 0.2 x10^3/uL (0.0-0.7); EOS % 3 % (0-3); HEMATOCRIT 40.6 % (39.0-53.0); HEMOGLOBIN 13.4 g/dL (13.0-17.5); LYMPH # 0.9 x10^3/uL (1.0-4.8); LYMPH % 12 % (24-48); MEAN CORPUSCULAR HEMOGLOBIN 30 pg (25-35); MEAN CORPUSCULAR HGB CONC 33 g/dL (31-37); MEAN CORPUSCULAR VOLUME 91 fL (79-100); MONO # 0.5 x10^3/uL (0.0-1.1); MONO % 6 % (0-9); NEUT # 5.8 x10^3uL (1.8-7.7); NEUT % 79 % (31-73); PLATELET COUNT 288 x10^3/uL (140-400); RED BLOOD COUNT 4.48 x10^6/uL (4.30-5.70); RED CELL DISTRIBUTION WIDTH 14.8 % (11.5-14.5); WHITE BLOOD COUNT 7.4 x10^3/uL (4.0-11.0)
[2018-07-12 21:17] LABS: PROTHROMBIN TIME PATIENT 11.5 SEC (11.7-14.0)
[2018-07-12 21:18] LABS: BLOOD UREA NITROGEN 14 mg/dL (8-26); BUN/CREATININE RATIO 23 (6-20); CALCIUM 9.5 mg/dL (8.5-10.1); CHLORIDE 93 mmol/L (98-107); CREATININE 0.6 mg/dL (0.7-1.3); GLUCOSE 115 mg/dL (70-99); POTASSIUM 3.9 mmol/L (3.5-5.1); SODIUM 138 mmol/L (136-145)
[2018-07-12 21:24] LABS: ALBUMIN/GLOBULIN RATIO 1.1 (1.0-1.7); ALK PHOS 112 U/L (46-116); ALT (SGPT) 16 U/L (16-63); AST (SGOT) 16 U/L (15-37); TOTAL BILIRUBIN 0.4 mg/dL (0.2-1.0); TOTAL PROTEIN 7.6 g/dL (6.4-8.2)
[2018-07-12 21:29] LABS: ANION GAP 0 (6-14)
--- NOTE | 2018-07-12 21:40 | RAD ---
AP portable chest radiograph 07/12/2018 Clinical History: Shortness of breath. An AP erect portable digital radiograph of the chest was obtained. Comparison study is dated 05/17/2018. The cardiac silhouette is normal in size. The thoracic aorta is mildly tortuous. Emphysematous changes are seen involving both lungs. Prominence of the interstitial markings throughout both lungs are seen consistent with areas of fibrosis. These are unchanged. Patchy right lower lobe subsegmental atelectasis and/or infiltrate is noted. No pneumothorax or pleural effusion is seen. The osseous structures are unchanged. Impression: Patchy right lower lobe subsegmental atelectasis and/or infiltrate. Electronically signed by: Charlie To MD (07/12/2018 9:37 PM) [facility]
[2018-07-12 21:46] LABS: CARBON DIOXIDE > 45 mmol/L (21-32)
[2018-07-12] MEDS ORDERED: PIP/TAZO PER PHARMACY MC PRN (22:30)
[2018-07-12 22:53] LABS: BASE EXCESS ABG 14 mmol/L (-3-3); HCO3 ABG 43 mmol/L (21-28); PO2 ABG 64 mmHg (65-108); SAT O2 ABG 93 % (92-99)
[2018-07-12 22:54] LABS: PCO2 ABG 79 mmHg (35-46)
--- NOTE | 2018-07-12 23:33 | PHYS DOC ---
Past Medical History Past Medical History: Asthma, CHF, COPD, GERD Additional Past Medical Histor: BPH, home oxygen Past Surgical History: Other Additional Past Surgical Histo: left shoulder rotator cuff repair Alcohol Use: Sober Drug Use: None Adult General Chief Complaint Chief Complaint: SHORTNESS OF BREATH [facility] HPI Patient is a 67 year oldmale brought in by dread with a chief complaint of shortness of breath. Patient has been coughing really not taking the Lasix he constance arauz can't give me a good reason why he is still smoking history and quit he did quit for 3 months he was here a while back, but better but now is worse again. SOB, really has some chest tightness, but mostly with deep breathing and there is cough occasional yellow sputum shortness of breath is pretty constant actually not worse with lying flat or exertion per se patient is on home oxygen sats have been a little lower than he is used to Review of Systems Review of Systems Constitutional: Denies fever or chills [] Eyes: Denies change in visual acuity, redness, or eye pain [] Cardiovascular: No additional information not addressed in HPI [] GI: Denies abdominal pain, nausea, vomiting, bloody stools or diarrhea [] Musculoskeletal: Denies back pain or joint pain [] Integument: Denies rash or skin lesions [] All other systems were reviewed and found to be within normal limits, except as documented in this note. Current Medications Current Medications Current Medications Medications (Trade) Dose Ordered Sig/Elijah Start Time Stop Time Status Last Admin Dose Admin Albuterol/ Ipratropium (Duoneb) 3 ml RTQID 07/13/18 08:00 07/14/18 07:59 Furosemide (Lasix) 20 mg 1X ONCE 07/12/18 20:45 07/12/18 20:46 DC 07/12/18 22:40 20 MG Methylprednisolone Sodium Succinate (SOLU-Medrol 125MG VIAL) 125 mg 1X ONCE 07/12/18 20:45 07/12/18 20:46 DC 07/12/18 21:15 125 MG Piperacillin Sod/ Tazobactam Sod (Zosyn Per Pharmacy) 1 each PRN DAILY PRN 07/12/18 22:30 Piperacillin Sod/ Tazobactam Sod 3.375 gm/Sodium Chloride 50 ml @ 100 mls/hr Q6HRS 07/12/18 23:00 Allergies Allergies Allergies Coded Allergies Type Severity Reaction Last Updated Verified morphine Adverse Reaction Intermediate Itching 04/14/16 Yes Physical Exam Physical Exam Constitutional: Well developed, chronically ill-appearing HENT: Normocephalic, atraumatic, bilateral external ears normal, oropharynx moist, no oral exudates, nose normal. [] Eyes: PERRLA, EOMI, conjunctiva normal, no discharge. [] Neck: Normal range of motion, no tenderness, supple, no stridor. [] Cardiovascular:Heart rate regular rhythm, difficult to assess due to respiratory sounds Lungs & Thorax: Wheezing noted bilaterally lung munson there is mild increase in respiratory effort there are some crackles at the bilateral lung bases Abdomen: Bowel sounds normal, soft, no tenderness, no masses, no pulsatile masses. [] Skin: Warm, dry, no erythema, no rash. [] Back: No tenderness, no CVA tenderness. [] Extremities: No tenderness, no cyanosis, no clubbing, ROM intact, no edema. [] Neurologic: Alert and oriented X 3, normal motor function, normal sensory function, no focal deficits noted. [] Psychologic: Affect normal, judgement normal, mood normal. [] Current Patient Data Vital Signs Vital Signs Date Time Temp Pulse Resp B/P (MAP) Pulse Ox O2 Delivery O2 Flow Rate FiO2 07/12/18 20:47 92 Nasal Cannula 4.0 07/12/18 20:27 98.8 96 26 113/65 (81) 98.8 Lab Values Laboratory Tests Test 07/12/18 20:52 07/12/18 22:28 White Blood Count 7.4 x10^3/uL (4.0-11.0) Red Blood Count 4.48 x10^6/uL (4.30-5.70) Hemoglobin 13.4 g/dL (13.0-17.5) Hematocrit 40.6 % (39.0-53.0) Mean Corpuscular Volume 91 fL (79-100) Mean Corpuscular Hemoglobin 30 pg (25-35) Mean Corpuscular Hemoglobin Concent 33 g/dL (31-37) Red Cell Distribution Width 14.8 % (11.5-14.5) H Platelet Count 288 x10^3/uL (140-400) Neutrophils (%) (Auto) 79 % (31-73) H Lymphocytes (%) (Auto) 12 % (24-48) L Monocytes (%) (Auto) 6 % (0-9) Eosinophils (%) (Auto) 3 % (0-3) Basophils (%) (Auto) 1 % (0-3) Neutrophils # (Auto) 5.8 x10^3uL (1.8-7.7) Lymphocytes # (Auto) 0.9 x10^3/uL (1.0-4.8) L Monocytes # (Auto) 0.5 x10^3/uL (0.0-1.1) Eosinophils # (Auto) 0.2 x10^3/uL (0.0-0.7) Basophils # (Auto) 0.0 x10^3/uL (0.0-0.2) Prothrombin Time 11.5 SEC (11.7-14.0) L Prothrombin Time INR 0.9 (0.8-1.1) Sodium Level 138 mmol/L (136-145) Potassium Level 3.9 mmol/L (3.5-5.1) Chloride Level 93 mmol/L (98-107) L Carbon Dioxide Level > 45 mmol/L (21-32) H Anion Gap 0 (6-14) L Blood Urea Nitrogen 14 mg/dL (8-26) Creatinine 0.6 mg/dL (0.7-1.3) L Estimated GFR (Cockcroft-Gault) 134.0 BUN/Creatinine Ratio 23 (6-20) H Glucose Level 115 mg/dL (70-99) H Calcium Level 9.5 mg/dL (8.5-10.1) Total Bilirubin 0.4 mg/dL (0.2-1.0) Aspartate Amino Transferase (AST) 16 U/L (15-37) Alanine Aminotransferase (ALT) 16 U/L (16-63) Alkaline Phosphatase 112 U/L (46-116) Troponin I Quantitative < 0.017 ng/mL (0.000-0.055) HQ-Jxm-G-Type Natriuretic Peptide 73 pg/mL (0-124) Total Protein 7.6 g/dL (6.4-8.2) Albumin 4.0 g/dL (3.4-5.0) Albumin/Globulin Ratio 1.1 (1.0-1.7) O2 Saturation 93 % (92-99) Arterial Blood pH 7.35 (7.35-7.45) Arterial Blood pCO2 at Patient Temp 79 mmHg (35-46) *H Arterial Blood pO2 at Patient Temp 64 mmHg (65-108) L Arterial Blood HCO3 43 mmol/L (21-28) H Arterial Blood Base Excess 14 mmol/L (-3-3) H Laboratory Tests 07/12/18 20:52 Laboratory Tests 07/12/18 20:52 EKG EKG EKG shows a normal sinus rhythm rate of 96 no acute ischemic changes noted no STEMI interpreted by me time of encounter[] Radiology/Procedures Radiology/Procedures [] Impressions: The cardiac silhouette is normal in size. The thoracic aorta is mildly tortuous. Emphysematous changes are seen involving both lungs. Prominence of the interstitial markings throughout both lungs are seen consistent with areas of fibrosis. These are unchanged. Patchy right lower lobe subsegmental atelectasis and/or infiltrate is noted. No pneumothorax or pleural effusion is seen. The osseous structures are unchanged. Impression: Patchy right lower lobe subsegmental atelectasis and/or infiltrate. Electronically signed by: Charlie To MD (07/12/2018 9:37 PM) [facility] DICTATED and SIGNED BY: CHARLIE TO MD. Course & Med Decision Making Course & Med Decision Making Pertinent Labs and Imaging studies reviewed. (See chart for details) []67-year-old male on home oxygen, history of COPD and CHF patient here with increasing shortness of breath likely multifactorial etiology. Patient is a abnormal lung sounds chest x-ray suggestive of a possible subtle pneumonia I ordered blood cultures lactic acid as well as Zosyn for that chest x-ray finding. BNP and troponin are negative possibly primarily a COPD exacerbation. Patient was given treatment for that as well I spoke with Dr. ELIZABETH, [id number] DISCUSSED PLAN OF ARE AND ADMIT The blood gas does show a compensated respiratory acidosis the patient said the CPAP helped him last time so I asked RT to put that on when he sleeping upstairs tonight. It may help his work of breathing Dragon Disclaimer Dragon Disclaimer This electronic medical record was generated, in whole or in part, using a voice recognition dictation system. Departure Departure Impression: Primary Impression: Acute and chronic respiratory failure with hypoxia Disposition: ADMITTED INPATIENT Admitting Physician: Other Condition: STABLE Referrals: DUSTY RAGSDALE MD (PCP) MEGHANN DIAZ MD July 12, 2018 23:32
[2018-07-13] VITALS (7 sets, daily range): BP systolic 107–145; BP diastolic 54–77
[2018-07-13] MEDS: PIPERACILLIN/TAZOBACTAM 3.375 GM in IV NORMAL SALINE 50ML 50 ML IV SCH ×4 (00:01→18:42)
[2018-07-13] MEDS: ALBUTEROL SULFATE 2.5 MG/3 ML NEBU. NEB PRN (04:53)
--- NOTE | 2018-07-13 06:42 | EKG ---
[facility] [address] [place] [id number] Test Date: 2018-07-12 Test Time: 20:38:46 Pat Name: YOUNG PENNINGTON Department: Room: [facility] 1 Gender: M [employer]: : 1950 Requested By: MEGHANN DIAZ Order Number: [id number] Reading MD: Alexey Neal Measurements Intervals [place] Rate: 96 P: 68 IN: 120 QRS: 82 QRSD: 82 T: 77 QT: 314 QTc: 397 Interpretive Statements SINUS RHYTHM NORMAL ECG Electronically Signed On 08-06-2018 11:43:09 CDT by Alexey Neal
[2018-07-13] MEDS ORDERED: IPRATRPIUM/ALBUTEROL 0.5/2.5MG 3 ML NEBU. NEB SCH ×2 (08:00→12:00)
--- NOTE | 2018-07-13 08:40 | NUR ---
Notified Dr. Miles of tachycardia. 110's, occasionally will jump to 120's. Does have cardiac home meds, discussed maybe restarting these.
[2018-07-13] MEDS ORDERED: SIMETHICONE 80 MG TAB.CHEW PO PRN (08:45)
--- NOTE | 2018-07-13 08:52 | PDOC1 ---
History and Physical Date of Admission Date of Admission DATE: 07/13/18 TIME: 08:48 Identification/Chief Complaint Chief Complaint cough, dyspnea, Source Source: Chart review, Patient History of Present Illness History of Present Illness Mr. Loredo is a 67 year oldmale brought in by EMS, he had sudden onset of syptoms after eating, then coughing, he has prior trouble swallowing, and thinks he may have had trouble with some food. Sudden marked cough, dyspnea, shortness of breath. 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 Past Medical History Cardiovascular: No pertinent hx, Other Pulmonary: COPD, Pneumonia, Other GI: No pertinent hx Heme/Onc: No pertinent hx Hepatobiliary: No pertinent hx Psych: No pertinent hx Musculoskeletal: No pain Rheumatologic: No pertinent hx Infectious disease: No pertinent hx Renal/: No pertinent hx Endocrine: No pertinent hx Past Surgical History Past Surgical History: Other Family History Family History: Hypertension Social History Smoke: <1 pack per day ALCOHOL: none Drugs: None Current Problem List Problem List Problems Medical Problems: (1) Acute and chronic respiratory failure with hypoxia Status: Acute Current Medications Current Medications Current Medications Albuterol/ Ipratropium (Duoneb) 3 ml STK-MED ONCE .ROUTE ; Start 07/12/18 at 20:38; Stop 07/12/18 at 20:39; Status DC Albuterol/ Ipratropium (Duoneb) 3 ml 1X ONCE NEB Last administered on 07/12/18at 20:45; Start 07/12/18 at 20:45; Stop 07/12/18 at 20:46; Status DC Methylprednisolone Sodium Succinate (SOLU-Medrol 125MG VIAL) 125 mg 1X ONCE IV Last administered on 07/12/18at 21:15; Start 07/12/18 at 20:45; Stop 07/12/18 at 20:46; Status DC Furosemide (Lasix) 20 mg 1X ONCE IVP Last administered on 07/12/18at 22:40; Start 07/12/18 at 20:45; Stop 07/12/18 at 20:46; Status DC Piperacillin Sod/ Tazobactam Sod (Zosyn Per Pharmacy) 1 each PRN DAILY PRN MC SEE COMMENTS; Start 07/12/18 at 22:30 Albuterol/ Ipratropium (Duoneb) 3 ml RTQID NEB Last administered on 07/13/18at 08:00; Start 07/13/18 at 08:00; Stop 07/14/18 at 07:59 Piperacillin Sod/ Tazobactam Sod 3.375 gm/Sodium Chloride 50 ml @ 100 mls/hr Q6HRS IV Last administered on 07/13/18at 05:31; Start 07/12/18 at 23:00 Albuterol Sulfate (Ventolin Neb Soln) 2.5 mg PRN Q4HRS PRN NEB SHORTNESS OF BREATH Last administered on 07/13/18at 04:53; Start 07/13/18 at 05:00 Enoxaparin Sodium (Lovenox 40mg Syringe) 40 mg Q24H SQ ; Start 07/13/18 at 09:00 Furosemide (Lasix) 20 mg DAILY PO ; Start 07/13/18 at 09:00; Status UNV Albuterol/ Ipratropium (Duoneb) 3 ml RTQID NEB ; Start 07/13/18 at 12:00; Status UNV Lactobacillus Rhamnosus (Culturelle) 1 cap BID PO ; Start 07/13/18 at 09:00; Status UNV Metoprolol Tartrate (Lopressor) 12.5 mg BID PO ; Start 07/13/18 at 09:00; Status UNV Pantoprazole Sodium (Protonix) 40 mg DAILY PO ; Start 07/13/18 at 09:00; Status UNV Potassium Chloride (Klor-Con) 10 meq DAILY PO ; Start 07/13/18 at 09:00; Status UNV Simethicone (Gas-X) 80 mg PRN AFTMEALHC PRN PO GAS / BLOATING; Start 07/13/18 at 08:45; Status UNV Tamsulosin HCl (Flomax) 0.4 mg DAILY PO ; Start 07/13/18 at 09:00; Status UNV Non-Formulary Medication (Fluticasone/ Salmeterol (Advair 500-50 Diskus)) 1 puff DAILY IH ; Start 07/13/18 at 09:00; Status UNV Non-Formulary Medication (Mag Hydrox/ Aluminum Hyd/ Simeth (Maalox Advanced Suspension)) 355 ml PRN Q6HRS PRN PO HEARTBURN / GAS; Start 07/13/18 at 08:45; Status UNV Non-Formulary Medication (Nicotine (NICODERM CQ 7mg)) 1 patch DAILY TD ; Start 07/13/18 at 09:00; Status UNV Non-Formulary Medication (Sennosides (Senna)) 8.6 mg BID PO ; Start 07/13/18 at 09:00; Status UNV Non-Formulary Medication (Tiotropium [place] (Spiriva)) 1 cap DAILY IH ; Start 07/13/18 at 09:00; Status UNV Active Scripts Active Culturelle (Lactobacillus Rhamnosus Gg) 1 Each Cap.sprink 1 Cap PO BID 14 Days Simethicone 80 Mg Tab.chew 80 Mg PO PRN AFTMEALHC PRN 14 Days Duoneb 0.5-3(2.5) Mg/3 Ml (Albuterol/Ipratropium) 3 Ml Ampul.neb 3 Ml NEB RTQID MDD 1 Reported Senna (Sennosides) 8.6 Mg Tablet 8.6 Mg PO BID NICODERM CQ 7mg (Nicotine) 1 Each Patch.td24 1 Patch TD DAILY Maalox Advanced Suspension (Mag Hydrox/Aluminum Hyd/Simeth) 355 Ml Oral.susp 355 Ml PO PRN Q6HRS PRN Protonix (Pantoprazole Sodium) 40 Mg Tablet.dr 40 Mg PO DAILY Potassium Chloride 10 Meq Capsule.er 10 Meq PO DAILY Lasix (Furosemide) 20 Mg Tablet 1 Tab PO DAILY Advair 500-50 Diskus (Fluticasone/Salmeterol) 1 Each Disk.w.dev 1 Puff IH DAILY Spiriva (Tiotropium [place]) 18 Mcg Cap.w.dev 1 Cap IH DAILY Flomax (Tamsulosin Hcl) 0.4 Mg Cap.er.24h 1 Cap PO DAILY Metoprolol Tartrate 25 Mg Tablet 12.5 Mg PO BID Allergies Allergies: Coded Allergies: morphine (Verified Adverse Reaction, Intermediate, Itching, 04/14/16) ROS General: No: Chills, Night Sweats, Fatigue, Malaise, Appetite, Other PSYCHOLOGICAL ROS: No: Anxiety, Behavioral Disorder, Concentration difficultie, Decreased libido, Depression, Disorientation, Hallucinations, Hostility, Irritablity, Memory difficulties, Mood Swings, Obsessive thoughts, Physical abuse, Sexual abuse, Sleep disturbances, Suicidal ideation, Other Eyes: No Blurry vision, No Decreased vision, No Double vision, No Dry eyes, No Excessive tearing, No Eye Pain, No Itchy Eyes, No Loss of vision, No Ph otophobia, No Scotomata, No Uses contacts, No Uses glasses, No Other HEENT: No: Heacaches, Visual Changes, Hearing change, Nasal congestion, Nasal discharge, Oral lesions, Sinus pain, Sore Throat, Epistaxis, Sneezing, Snoring, Tinnitus, Vertigo, Vocal changes, Other Respiratory: No: Cough, Hemoptysis, Orthopnea, Pleuritic Pain, Shortness of breath, SOB with excertion, Sputum Changes, Stridor, Tachypnea, Wheezing, Other Cardiovascular: No Chest Pain, No Palpitations, No Orthopnea, No Paroxysmal Noc. Dyspnea, No Edema, No Lt Headedness, No Other Gastrointestinal: Yes Nausea; No Vomiting, No Abdominal Pain, No Diarrhea, No Constipation, No Melena, No H ematochezia, No Other Genitourinary: No Dysuria, No Frequency, No Incontinence, No Hematuria, No Retention, No Discharge, No Urgency, No Pain, No Flank Pain, No Other, No , No , No , No , No , No , No Musculoskeletal: Yes Joint Pain; No Gait Disturbance, No Joint Stiffness, No Joint Swelling, No Muscle Pain, No Muscular Weakness, No Pain In:, No Swelling In:, No Other Neurological: No Behavorial Changes, No Bowel/Bladder ControlChng, No Confusion, No Dizziness, No Gait Disturbance, No Headaches, No Impaired Coord/balance, No Memory Loss, No Numbness/Tingling, No Seizures, No Speech Problems, No Tremors, No Visual Changes, No Weakness, No Other Skin: No Dry Skin, No Eczema, No Hair Changes, No Lumps, No Mole Changes, No Mottling, No Nail Changes, No Pruritus, No Rash, No Skin Lesion Changes, No Other, No Acne Physical Exam General: Alert, Oriented X3, Cooperative, mild distress HEENT: Atraumatic, PERRLA Lungs: Other (rales, wheeze, low volume) Abdomen: Normal bowel sounds, Soft Rectal Exam: not examined Extremities: No clubbing, No edema Skin: No rashes Neuro: Normal tone, Sensation intact, Cranial nerves 3-12 NL Psych/Mental Status: Mood NL Vitals Vitals Vital Signs Date Time Temp Pulse Resp B/P (MAP) Pulse Ox O2 Delivery O2 Flow Rate FiO2 07/13/18 08:00 95 Nasal Cannula 2.5 07/13/18 07:15 98.1 107 20 107/67 (80) 98.1 Labs Labs Laboratory Tests Test 07/12/18 20:52 07/12/18 22:28 07/13/18 01:35 07/13/18 04:25 White Blood Count 7.4 x10^3/uL (4.0-11.0) Red Blood Count 4.48 x10^6/uL (4.30-5.70) Hemoglobin 13.4 g/dL (13.0-17.5) Hematocrit 40.6 % (39.0-53.0) Mean Corpuscular Volume 91 fL (79-100) Mean Corpuscular Hemoglobin 30 pg (25-35) Mean Corpuscular Hemoglobin Concent 33 g/dL (31-37) Red Cell Distribution Width 14.8 % (11.5-14.5) Platelet Count 288 x10^3/uL (140-400) Neutrophils (%) (Auto) 79 % (31-73) Lymphocytes (%) (Auto) 12 % (24-48) Monocytes (%) (Auto) 6 % (0-9) Eosinophils (%) (Auto) 3 % (0-3) Basophils (%) (Auto) 1 % (0-3) Neutrophils # (Auto) 5.8 x10^3uL (1.8-7.7) Lymphocytes # (Auto) 0.9 x10^3/uL (1.0-4.8) Monocytes # (Auto) 0.5 x10^3/uL (0.0-1.1) Eosinophils # (Auto) 0.2 x10^3/uL (0.0-0.7) Basophils # (Auto) 0.0 x10^3/uL (0.0-0.2) Prothrombin Time 11.5 SEC (11.7-14.0) Prothromb Time International Ratio 0.9 (0.8-1.1) Sodium Level 138 mmol/L (136-145) Potassium Level 3.9 mmol/L (3.5-5.1) Chloride Level 93 mmol/L (98-107) Carbon Dioxide Level > 45 mmol/L (21-32) Anion Gap 0 (6-14) Blood Urea Nitrogen 14 mg/dL (8-26) Creatinine 0.6 mg/dL (0.7-1.3) Estimated GFR (Cockcroft-Gault) 134.0 BUN/Creatinine Ratio 23 (6-20) Glucose Level 115 mg/dL (70-99) Lactic Acid Level 1.1 mmol/L (0.4-2.0) Calcium Level 9.5 mg/dL (8.5-10.1) Total Bilirubin 0.4 mg/dL (0.2-1.0) Aspartate Amino Transf (AST/SGOT) 16 U/L (15-37) Alanine Aminotransferase (ALT/SGPT) 16 U/L (16-63) Alkaline Phosphatase 112 U/L (46-116) Troponin I Quantitative < 0.017 ng/mL (0.000-0.055) < 0.017 ng/mL (0.000-0.055) < 0.017 ng/mL (0.000-0.055) RE-Ioe-X-Type Natriuretic Peptide 73 pg/mL (0-124) Total Protein 7.6 g/dL (6.4-8.2) Albumin 4.0 g/dL (3.4-5.0) Albumin/Globulin Ratio 1.1 (1.0-1.7) O2 Saturation 93 % (92-99) Arterial Blood pH 7.35 (7.35-7.45) Arterial Blood pCO2 at Patient Temp 79 mmHg (35-46) Arterial Blood pO2 at Patient Temp 64 mmHg (65-108) Arterial Blood HCO3 43 mmol/L (21-28) Arterial Blood Base Excess 14 mmol/L (-3-3) Laboratory Tests Test 07/12/18 20:52 07/12/18 22:28 07/13/18 01:35 07/13/18 04:25 White Blood Count 7.4 x10^3/uL (4.0-11.0) Red Blood Count 4.48 x10^6/uL (4.30-5.70) Hemoglobin 13.4 g/dL (13.0-17.5) Hematocrit 40.6 % (39.0-53.0) Mean Corpuscular Volume 91 fL (79-100) Mean Corpuscular Hemoglobin 30 pg (25-35) Mean Corpuscular Hemoglobin Concent 33 g/dL (31-37) Red Cell Distribution Width 14.8 % (11.5-14.5) Platelet Count 288 x10^3/uL (140-400) Neutrophils (%) (Auto) 79 % (31-73) Lymphocytes (%) (Auto) 12 % (24-48) Monocytes (%) (Auto) 6 % (0-9) Eosinophils (%) (Auto) 3 % (0-3) Basophils (%) (Auto) 1 % (0-3) Neutrophils # (Auto) 5.8 x10^3uL (1.8-7.7) Lymphocytes # (Auto) 0.9 x10^3/uL (1.0-4.8) Monocytes # (Auto) 0.5 x10^3/uL (0.0-1.1) Eosinophils # (Auto) 0.2 x10^3/uL (0.0-0.7) Basophils # (Auto) 0.0 x10^3/uL (0.0-0.2) Prothrombin Time 11.5 SEC (11.7-14.0) Prothromb Time International Ratio 0.9 (0.8-1.1) Sodium Level 138 mmol/L (136-145) Potassium Level 3.9 mmol/L (3.5-5.1) Chloride Level 93 mmol/L (98-107) Carbon Dioxide Level > 45 mmol/L (21-32) Anion Gap 0 (6-14) Blood Urea Nitrogen 14 mg/dL (8-26) Creatinine 0.6 mg/dL (0.7-1.3) Estimated GFR (Cockcroft-Gault) 134.0 BUN/Creatinine Ratio 23 (6-20) Glucose Level 115 mg/dL (70-99) Lactic Acid Level 1.1 mmol/L (0.4-2.0) Calcium Level 9.5 mg/dL (8.5-10.1) Total Bilirubin 0.4 mg/dL (0.2-1.0) Aspartate Amino Transf (AST/SGOT) 16 U/L (15-37) Alanine Aminotransferase (ALT/SGPT) 16 U/L (16-63) Alkaline Phosphatase 112 U/L (46-116) Troponin I Quantitative < 0.017 ng/mL (0.000-0.055) < 0.017 ng/mL (0.000-0.055) < 0.017 ng/mL (0.000-0.055) IT-Qzx-J-Type Natriuretic Peptide 73 pg/mL (0-124) Total Protein 7.6 g/dL (6.4-8.2) Albumin 4.0 g/dL (3.4-5.0) Albumin/Globulin Ratio 1.1 (1.0-1.7) O2 Saturation 93 % (92-99) Arterial Blood pH 7.35 (7.35-7.45) Arterial Blood pCO2 at Patient Temp 79 mmHg (35-46) Arterial Blood pO2 at Patient Temp 64 mmHg (65-108) Arterial Blood HCO3 43 mmol/L (21-28) Arterial Blood Base Excess 14 mmol/L (-3-3) VTE Prophylaxis Ordered VTE Prophylaxis Devices: No VTE Pharmacological Prophylaxi: Yes Assessment/Plan Assessment/Plan dysphagia aspiration pneumonitis COPD, severe disease with acute bronchitis tobacco use disorder constance jasmine CHF, VIRAL SERRANO MD July 13, 2018 08:52
--- NOTE | 2018-07-13 08:54 | CONS ---
DATE OF CONSULTATION: ATTENDING PHYSICIAN: Dr. Montgomery. REASON FOR CONSULTATION: Dyspnea, respiratory failure. HISTORY OF PRESENT ILLNESS: The patient is a 67-year-old male who has been a smoker for 40 years, has not quit cigarettes. He came to the hospital with increasing shortness of breath for the last 2 weeks. He had a cough, which has been productive of yellow sputum. For the same duration, no fever, no chills. He has some occasional chest pains. No headaches, no nausea, vomiting, no diarrhea. The patient was seen in the Emergency Room, and a chest x-ray was reviewed by me, it shows mild bilateral interstitial infiltrates with slightly prominence in the right lower lobe. ABG showed a pH of 7.35, pCO2 of 79 and a pO2 of 64. The patient was placed on BiPAP overnight. He states he is mildly better, but still has increased work of breathing with minimal activity. The patient on oxygen at home at 2 liters. Denies any history of DVT or pulmonary embolism. His previous CAT scan from April of last year showed some bilateral patchy nodular infiltrates. PAST MEDICAL HISTORY: Significant for history of COPD with ongoing tobaccoism, history of chronic respiratory failure, GERD, BPH. PAST SURGICAL HISTORY: Left shoulder surgery. ALLERGIES: MORPHINE. REVIEW OF SYSTEMS: Twelve-point system obtained. Pertinent positives discussed in my history of present illness, otherwise noncontributory. All systems that were negative were reviewed as well. MEDICATIONS: All reviewed as listed in the MRAD. FAMILY HISTORY: Noncontributory to lungs. SOCIAL HISTORY: Smoker for 40 years, still smokes. PHYSICAL EXAMINATION: VITAL SIGNS: Reviewed. Pulse ox 95% on 2.5 liters. NECK: Supple. LUNGS: With bilateral faint expiratory wheezes. CARDIOVASCULAR: Regular rate and rhythm. ABDOMEN: Soft, nontender. EXTREMITIES: With no pitting edema. LABORATORY DATA: Reviewed. ABGs as discussed in my history of present illness. BUN and creatinine 14 and 0.6. White cell count 7.4, hemoglobin 13.4. IMPRESSION: 1. Acute on chronic hypoxic and hypercapnic respiratory failure secondary to acute exacerbation of chronic obstructive pulmonary disease and bilateral pneumonia. 2. Abnormal chest x-ray with patchy interstitial infiltrates, more prominent on the right lower lobe, but he has also involvement in other lobes as well. He had an abnormal CT chest in April with some reticular nodular inflammatory infiltrates. He would benefit from repeating the CT chest. 3. 40+ years of tobacco use and continues to smoke cigarettes and severe chronic obstructive pulmonary disease. RECOMMENDATIONS: 1. Continue with present bronchodilators. 2. P.r.n. BiPAP during the day and bedtime scheduled. Clinically, has improved with the BiPAP. 3. Broad-spectrum antibiotic to cover for gram-negative pneumonia. 4. Noncontrast CT chest. 5. DVT prophylaxis will be added. 6. We will repeat chest x-ray in few days after antibiotics. 7. Smoking cessation counseling provided. 8. echo PAULA HAYNES MD DR: EUN/joshua JOB#: [id number] / [id number] TRICIA
[2018-07-13] MEDS: FUROSEMIDE 20 MG TABLET PO SCH (08:56)
[2018-07-13] MEDS: PANTOPRAZOLE 40 MG TABLET.DR. PO SCH (08:56)
[2018-07-13] MEDS: SENNOSIDES 8.6 MG TABLET PO SCH ×2 (08:56→21:20)
[2018-07-13] MEDS: TAMSULOSIN 0.4 MG CAP.ER.24H. PO SCH (08:56)
[2018-07-13] MEDS: METOPROLOL TART IMMED RELEASE 25 MG TABLET. PO SCH ×2 (08:57→21:21)
[2018-07-13] MEDS: LACTOBACILLUS RHAMNOSUS GG 1 CAPSULE. PO SCH ×2 (08:57→21:21)
[2018-07-13] MEDS: POTASSIUM CHLORIDE 10 MEQ TABLET.ER. PO SCH (08:57)
[2018-07-13] MEDS: NICOTINE 7MG PATCH. TD SCH (08:58)
[2018-07-13] MEDS: methylPREDNISolone SOD SUCC PF 40 MG/ML VIAL. IV SCH ×2 (08:58→21:21)
[2018-07-13] MEDS: ENOXAPARIN 40 MG/0.4 ML SYRINGE. SQ SCH (08:58)
[2018-07-13] MEDS ORDERED: NON FORMULARY ITEM (Fluticasone/Salmeterol (Advair 500-50 Diskus) 1 PUFF) IH SCH (09:00)
[2018-07-13] MEDS ORDERED: NON FORMULARY ITEM (Tiotropium Bromide (Spiriva) 1 CAP) IH SCH (09:00)
[2018-07-13] MEDS ORDERED: MAG HYDROX/ALUMINUM HYD/SIMETH 30 ML ORAL.SUSP PO PRN (09:00)
--- NOTE | 2018-07-13 09:33 | NUR ---
Discussed heart rate in 130's with Dr. Miles. PO metoprolol that patient typically takes at home, administered. Actively coughing, PRN cough medication ordered.
[2018-07-13] MEDS: guaiFENesin/CODEINE 100mg/10mg 5 ML LIQUID PO PRN (11:30)
[2018-07-13] MEDS: BUDESONIDE 0.5 MG/2 ML NEBU. NEB SCH ×2 (11:56→20:25)
[2018-07-13] MEDS: IPRATRPIUM/ALBUTEROL 0.5/2.5MG 3 ML NEBU. NEB SCH ×4 (11:56→22:00)
[2018-07-13] MEDS ORDERED: IV NORMAL SALINE 500ML BAG 500 ML IV ONE (13:15)
--- NOTE | 2018-07-13 14:36 | NUR ---
SW following pt for anticipated dc needs. Chart reviewed. Pt lives at home with family. PT pending. No dc recommendations noted at this time. Will continue to eval dc needs.
--- NOTE | 2018-07-13 14:43 | RAD ---
CT CHEST WO CONTRAST Indication: Pneumonia Technique: Noncontrast CT imaging was performed of the chest, multiplanar reconstruction images submitted. One or more of the following individualized dose reduction techniques were utilized for this examination: 1. Automated exposure control 2. Adjustment of the mA and/or kV according to patient size 3. Use of iterative reconstruction technique. Comparison: May 18, 2018 Findings: There is no pleural or pericardial effusion or pneumothorax. There is increased right lower lobe infiltrate near the lung base, has a somewhat nodular morphology,. There are also some new small areas of somewhat nodular appearing infiltrate of the superior right lower lobe and also of the right upper lobe as seen on image 25 series 2 which measures about 1.8 cm. There is again fairly severe emphysema. There is again ectatic ascending thoracic aorta about 3.8 cm. There is coronary calcification. Pretracheal node about 1.1 cm short axis dimension is similar, some other smaller nodes also present as seen previously. IMPRESSION: 1. There is some increased right lower lobe infiltrate such as near the lung base but also of the superior right lower lobe and right upper lobe. Findings could be on a postinfectious basis although underlying neoplastic etiology again not excludable. Assuming there are clinical findings of infection, short-term follow-up after treatment within 2 months is advised. If there are not findings suggestive of infection, PET CT or biopsy should be considered. 2. There is again fairly severe emphysema. 3. There is some coronary calcification. 4. There is stable mild mediastinal lymphadenopathy. Electronically signed by: Salvador Alva MD (07/13/2018 2:40 PM) [email or web address]
[2018-07-14] VITALS (7 sets, daily range): BP systolic 105–130; BP diastolic 59–76
[2018-07-14] MEDS: PIPERACILLIN/TAZOBACTAM 3.375 GM in IV NORMAL SALINE 50ML 50 ML IV SCH ×5 (00:58→23:10)
[2018-07-14] MEDS: ALBUTEROL SULFATE 2.5 MG/3 ML NEBU. NEB PRN (04:17)
[2018-07-14] MEDS: BUDESONIDE 0.5 MG/2 ML NEBU. NEB SCH ×2 (08:00→20:50)
[2018-07-14] MEDS: PANTOPRAZOLE 40 MG TABLET.DR. PO SCH (08:22)
[2018-07-14] MEDS: FUROSEMIDE 20 MG TABLET PO SCH (08:22)
[2018-07-14] MEDS: METOPROLOL TART IMMED RELEASE 25 MG TABLET. PO SCH ×2 (08:22→20:58)
[2018-07-14] MEDS: SENNOSIDES 8.6 MG TABLET PO SCH ×2 (08:22→20:56)
[2018-07-14] MEDS: LACTOBACILLUS RHAMNOSUS GG 1 CAPSULE. PO SCH ×2 (08:22→20:59)
[2018-07-14] MEDS: NICOTINE 7MG PATCH. TD SCH (08:22)
[2018-07-14] MEDS: TAMSULOSIN 0.4 MG CAP.ER.24H. PO SCH (08:23)
[2018-07-14] MEDS: ENOXAPARIN 40 MG/0.4 ML SYRINGE. SQ SCH (08:23)
[2018-07-14] MEDS: methylPREDNISolone SOD SUCC PF 40 MG/ML VIAL. IV SCH ×2 (08:23→20:56)
[2018-07-14] MEDS: POTASSIUM CHLORIDE 10 MEQ TABLET.ER. PO SCH (08:23)
[2018-07-14] MEDS: guaiFENesin/CODEINE 100mg/10mg 5 ML LIQUID PO PRN ×2 (08:36→21:00)
[2018-07-14] MEDS: IPRATRPIUM/ALBUTEROL 0.5/2.5MG 3 ML NEBU. NEB SCH ×5 (08:58→22:00)
--- NOTE | 2018-07-14 10:50 | PDOC ---
PULMONARY PROGRESS NOTES Subjective no soa Vitals Vital Signs Date Time Temp Pulse Resp B/P (MAP) Pulse Ox O2 Delivery O2 Flow Rate FiO2 07/14/18 08:59 96 Nasal Cannula 2.5 07/14/18 08:22 97 110/66 07/14/18 07:15 98.1 18 98.1 General: Alert, No acute distress Lungs: Other (decrease bases) Cardiovascular: S1, S2 Abdomen: Soft, Non-tender Extremities: Other (1+edema) Labs Laboratory Tests Test 07/12/18 20:52 07/12/18 22:28 07/13/18 01:35 07/13/18 04:25 White Blood Count 7.4 x10^3/uL (4.0-11.0) Red Blood Count 4.48 x10^6/uL (4.30-5.70) Hemoglobin 13.4 g/dL (13.0-17.5) Hematocrit 40.6 % (39.0-53.0) Mean Corpuscular Volume 91 fL (79-100) Mean Corpuscular Hemoglobin 30 pg (25-35) Mean Corpuscular Hemoglobin Concent 33 g/dL (31-37) Red Cell Distribution Width 14.8 % (11.5-14.5) Platelet Count 288 x10^3/uL (140-400) Neutrophils (%) (Auto) 79 % (31-73) Lymphocytes (%) (Auto) 12 % (24-48) Monocytes (%) (Auto) 6 % (0-9) Eosinophils (%) (Auto) 3 % (0-3) Basophils (%) (Auto) 1 % (0-3) Neutrophils # (Auto) 5.8 x10^3uL (1.8-7.7) Lymphocytes # (Auto) 0.9 x10^3/uL (1.0-4.8) Monocytes # (Auto) 0.5 x10^3/uL (0.0-1.1) Eosinophils # (Auto) 0.2 x10^3/uL (0.0-0.7) Basophils # (Auto) 0.0 x10^3/uL (0.0-0.2) Prothrombin Time 11.5 SEC (11.7-14.0) Prothromb Time International Ratio 0.9 (0.8-1.1) Sodium Level 138 mmol/L (136-145) Potassium Level 3.9 mmol/L (3.5-5.1) Chloride Level 93 mmol/L (98-107) Carbon Dioxide Level > 45 mmol/L (21-32) Anion Gap 0 (6-14) Blood Urea Nitrogen 14 mg/dL (8-26) Creatinine 0.6 mg/dL (0.7-1.3) Estimated GFR (Cockcroft-Gault) 134.0 BUN/Creatinine Ratio 23 (6-20) Glucose Level 115 mg/dL (70-99) Lactic Acid Level 1.1 mmol/L (0.4-2.0) Calcium Level 9.5 mg/dL (8.5-10.1) Total Bilirubin 0.4 mg/dL (0.2-1.0) Aspartate Amino Transf (AST/SGOT) 16 U/L (15-37) Alanine Aminotransferase (ALT/SGPT) 16 U/L (16-63) Alkaline Phosphatase 112 U/L (46-116) Troponin I Quantitative < 0.017 ng/mL (0.000-0.055) < 0.017 ng/mL (0.000-0.055) < 0.017 ng/mL (0.000-0.055) ZD-Ggd-M-Type Natriuretic Peptide 73 pg/mL (0-124) Total Protein 7.6 g/dL (6.4-8.2) Albumin 4.0 g/dL (3.4-5.0) Albumin/Globulin Ratio 1.1 (1.0-1.7) O2 Saturation 93 % (92-99) Arterial Blood pH 7.35 (7.35-7.45) Arterial Blood pCO2 at Patient Temp 79 mmHg (35-46) Arterial Blood pO2 at Patient Temp 64 mmHg (65-108) Arterial Blood HCO3 43 mmol/L (21-28) Arterial Blood Base Excess 14 mmol/L (-3-3) Procalcitonin < 0.10 ng/mL (0.00-0.10) Medications Active Scripts Medications Dose Route/Sig Max Daily Dose Days Date Category Culturelle (Lactobacillus Rhamnosus Gg) 1 Each Cap.sprink 1 Cap PO BID 14 05/20/18 Rx Simethicone 80 Mg Tab.chew 80 Mg PO PRN AFTMEALHC PRN 14 05/20/18 Rx Senna (Sennosides) 8.6 Mg Tablet 8.6 Mg PO BID 05/18/18 Reported NICODERM CQ 7mg (Nicotine) 1 Each Patch.td24 1 Patch TD DAILY 05/18/18 Reported Maalox Advanced Suspension (Mag Hydrox/Aluminum Hyd/Simeth) 355 Ml Oral.susp 355 Ml PO PRN Q6HRS PRN 05/18/18 Reported Duoneb 0.5-3(2.5) Mg/3 Ml (Albuterol/Ipratropium) 3 Ml Ampul.neb 3 Ml NEB RTQID MDD 1 05/10/18 Rx Protonix (Pantoprazole Sodium) 40 Mg Tablet.dr 40 Mg PO DAILY 11/18/15 Reported Potassium Chloride 10 Meq Capsule.er 10 Meq PO DAILY 11/18/15 Reported Lasix (Furosemide) 20 Mg Tablet 1 Tab PO DAILY 11/18/15 Reported Advair 500-50 Diskus (Fluticasone/Salmeterol) 1 Each Disk.w.dev 1 Puff IH DAILY 10/11/15 Reported Spiriva (Tiotropium [place]) 18 Mcg Cap.w.dev 1 Cap IH DAILY 10/11/15 Reported Flomax (Tamsulosin Hcl) 0.4 Mg Cap.er.24h 1 Cap PO DAILY 10/11/15 Reported Metoprolol Tartrate 25 Mg Tablet 12.5 Mg PO BID 10/11/15 Reported Advair 250-50 Diskus (Fluticasone/Salmeterol) 1 Each Disk.w.dev 1 Each IH 02/14/[address] CHEST IMPRESSION: 1. There is some increased right lower lobe infiltrate such as near the lung base but also of the superior right lower lobe and right upper lobe. Findings could be on a postinfectious basis although underlying neoplastic etiology again not excludable. Assuming there are clinical findings of infection, short-term follow-up after treatment within 2 months is advised. If there are not findings suggestive of infection, PET CT or biopsy should be considered. 2. There is again fairly severe emphysema. 3. There is some coronary calcification. 4. There is stable mild mediastinal lymphadenopathy. Impression . 1. Acute on chronic hypoxic and hypercapnic respiratory failure secondary to acute exacerbation of chronic obstructive pulmonary disease and bilateral pneumonia. 2. Abnormal chest x-ray with patchy interstitial infiltrates, more prominent on the right lower lobe, but he has also involvement in other lobes as well. He had an abnormal CT chest in April with some reticular nodular inflammatory infiltrates. 3. 40+ years of tobacco use and continues to smoke cigarettes and severe chronic obstructive pulmonary disease. Plan . RECOMMENDATIONS: 1. Continue with present bronchodilators. 2. P.r.n. BiPAP during the day and bedtime scheduled. Clinically, has improved with the BiPAP. 3. Broad-spectrum antibiotic to cover for gram-negative pneumonia. 4. Noncontrast CT chest reviewed. Likely infectious etiology, will need f/u ct chest in 2 months 5. DVT prophylaxis will be added. 6. We will repeat chest x-ray in few days after antibiotics. 7. Smoking cessation counseling provided. 8. PAULA Yan MD July 14, 2018 10:50
--- NOTE | 2018-07-14 13:17 | PDOC ---
PROGRESS NOTES Chief Complaint Chief Complaint dysphagia aspiration pneumonitis? COPD severe disease with acute bronchitis tobacco use disorder cor pulmonale, right sided chronic CHF, Acute on chronic hypoxic and hypercapnic respiratory failure secondary to the above Plan: Continue with antibiotics Supportive measures Further recommendations will be based on the clinical course Follow recommendations from pulmonology network consultant Assessing the a.m. History of Present Illness History of Present Illness Patient with improved symptoms. Still quite short of breath. I have encouraged more activity today, still complaining of some cough no fever or chills reported overnight Vitals Vitals Vital Signs Date Time Temp Pulse Resp B/P (MAP) Pulse Ox O2 Delivery O2 Flow Rate FiO2 07/14/18 12:02 90 Nasal Cannula 2.5 07/14/18 11:06 98.3 93 24 130/76 (94) 98.3 Physical Exam General: Alert, Oriented X3, Cooperative, mild distress Lungs: Other (decrease bases) Abdomen: Normal bowel sounds, Soft Extremities: No clubbing, No edema Skin: No rashes Review of Systems Review of Systems Pertinent as per history of present illness otherwise 14 point review of system is negative Assessment and Plan Assessmemt and Plan Problems Medical Problems: (1) Acute and chronic respiratory failure with hypoxia Status: Acute Comment Review of Relevant I have reviewed the following items zaire (where applicable) has been applied. Labs Laboratory Tests Test 07/12/18 20:52 07/12/18 22:28 07/13/18 01:35 07/13/18 04:25 White Blood Count 7.4 x10^3/uL (4.0-11.0) Red Blood Count 4.48 x10^6/uL (4.30-5.70) Hemoglobin 13.4 g/dL (13.0-17.5) Hematocrit 40.6 % (39.0-53.0) Mean Corpuscular Volume 91 fL (79-100) Mean Corpuscular Hemoglobin 30 pg (25-35) Mean Corpuscular Hemoglobin Concent 33 g/dL (31-37) Red Cell Distribution Width 14.8 % (11.5-14.5) Platelet Count 288 x10^3/uL (140-400) Neutrophils (%) (Auto) 79 % (31-73) Lymphocytes (%) (Auto) 12 % (24-48) Monocytes (%) (Auto) 6 % (0-9) Eosinophils (%) (Auto) 3 % (0-3) Basophils (%) (Auto) 1 % (0-3) Neutrophils # (Auto) 5.8 x10^3uL (1.8-7.7) Lymphocytes # (Auto) 0.9 x10^3/uL (1.0-4.8) Monocytes # (Auto) 0.5 x10^3/uL (0.0-1.1) Eosinophils # (Auto) 0.2 x10^3/uL (0.0-0.7) Basophils # (Auto) 0.0 x10^3/uL (0.0-0.2) Prothrombin Time 11.5 SEC (11.7-14.0) Prothromb Time International Ratio 0.9 (0.8-1.1) Sodium Level 138 mmol/L (136-145) Potassium Level 3.9 mmol/L (3.5-5.1) Chloride Level 93 mmol/L (98-107) Carbon Dioxide Level > 45 mmol/L (21-32) Anion Gap 0 (6-14) Blood Urea Nitrogen 14 mg/dL (8-26) Creatinine 0.6 mg/dL (0.7-1.3) Estimated GFR (Cockcroft-Gault) 134.0 BUN/Creatinine Ratio 23 (6-20) Glucose Level 115 mg/dL (70-99) Lactic Acid Level 1.1 mmol/L (0.4-2.0) Calcium Level 9.5 mg/dL (8.5-10.1) Total Bilirubin 0.4 mg/dL (0.2-1.0) Aspartate Amino Transf (AST/SGOT) 16 U/L (15-37) Alanine Aminotransferase (ALT/SGPT) 16 U/L (16-63) Alkaline Phosphatase 112 U/L (46-116) Troponin I Quantitative < 0.017 ng/mL (0.000-0.055) < 0.017 ng/mL (0.000-0.055) < 0.017 ng/mL (0.000-0.055) VD-Utc-A-Type Natriuretic Peptide 73 pg/mL (0-124) Total Protein 7.6 g/dL (6.4-8.2) Albumin 4.0 g/dL (3.4-5.0) Albumin/Globulin Ratio 1.1 (1.0-1.7) O2 Saturation 93 % (92-99) Arterial Blood pH 7.35 (7.35-7.45) Arterial Blood pCO2 at Patient Temp 79 mmHg (35-46) Arterial Blood pO2 at Patient Temp 64 mmHg (65-108) Arterial Blood HCO3 43 mmol/L (21-28) Arterial Blood Base Excess 14 mmol/L (-3-3) Procalcitonin < 0.10 ng/mL (0.00-0.10) Microbiology 07/12/18 Blood Culture - Preliminary, Resulted NO GROWTH AFTER 1 DAY Medications Current Medications Albuterol/ Ipratropium (Duoneb) 3 ml STK-MED ONCE .ROUTE ; Start 07/12/18 at 20:38; Stop 07/12/18 at 20:39; Status DC Albuterol/ Ipratropium (Duoneb) 3 ml 1X ONCE NEB Last administered on 07/12/18at 20:45; Start 07/12/18 at 20:45; Stop 07/12/18 at 20:46; Status DC Methylprednisolone Sodium Succinate (SOLU-Medrol 125MG VIAL) 125 mg 1X ONCE IV Last administered on 07/12/18at 21:15; Start 07/12/18 at 20:45; Stop 07/12/18 at 20:46; Status DC Furosemide (Lasix) 20 mg 1X ONCE IVP Last administered on 07/12/18at 22:40; Start 07/12/18 at 20:45; Stop 07/12/18 at 20:46; Status DC Piperacillin Sod/ Tazobactam Sod (Zosyn Per Pharmacy) 1 each PRN DAILY PRN MC SEE COMMENTS; Start 07/12/18 at 22:30 Albuterol/ Ipratropium (Duoneb) 3 ml RTQID NEB Last administered on 07/13/18at 08:00; Start 07/13/18 at 08:00; Stop 07/13/18 at 08:43; Status DC Piperacillin Sod/ Tazobactam Sod 3.375 gm/Sodium Chloride 50 ml @ 100 mls/hr Q6HRS IV Last administered on 07/14/18at 12:55; Start 07/12/18 at 23:00 Albuterol Sulfate (Ventolin Neb Soln) 2.5 mg PRN Q4HRS PRN NEB SHORTNESS OF BREATH Last administered on 07/14/18 04:17; Start 07/13/18 at 05:00 Enoxaparin Sodium (Lovenox 40mg Syringe) 40 mg Q24H SQ Last administered on 07/14/18 08:23; Start 07/13/18 at 09:00 Furosemide (Lasix) 20 mg DAILY PO Last administered on 07/14/18 08:22; Start 07/13/18 at 09:30 Albuterol/ Ipratropium (Duoneb) 3 ml RTQID NEB ; Start 07/13/18 at 12:00; Status UNV Lactobacillus Rhamnosus (Culturelle) 1 cap BID PO Last administered on 07/14/18 08:22; Start 07/13/18 at 09:30 Metoprolol Tartrate (Lopressor) 12.5 mg BID PO Last administered on 07/14/18 08:22; Start 07/13/18 at 09:30 Pantoprazole Sodium (Protonix) 40 mg DAILYAC PO Last administered on 07/14/18 08:22; Start 07/13/18 at 09:30 Potassium Chloride (Klor-Con) 10 meq DAILY PO Last administered on 07/14/18 08:23; Start 07/13/18 at 09:30 Simethicone (Gas-X) 80 mg PRN AFTMEALHC PRN PO GAS / BLOATING; Start 07/13/18 at 08:45 Tamsulosin HCl (Flomax) 0.4 mg DAILY PO Last administered on 07/14/18 08:23; Start 07/13/18 at 09:30 Non-Formulary Medication (Fluticasone/ Salmeterol (Advair 500-50 Diskus)) 1 puff DAILY IH ; Start 07/13/18 at 09:00; Status UNV Al Hydroxide/Mg Hydroxide (Mylanta Plus Xs) 30 ml PRN Q6HRS PRN PO HEARTBURN / GAS; Start 07/13/18 at 09:00 Nicotine (Nicoderm Cq 7mg) 1 patch DAILY TD Last administered on 07/14/18 08:22; Start 07/13/18 at 09:30 Sennosides (Senna) 8.6 mg BID PO Last administered on 5/15/19at 08:22; Start 07/13/18 at 09:30 Non-Formulary Medication (Tiotropium [place] (Spiriva)) 1 cap DAILY IH ; Start 07/13/18 at 09:00; Status UNV Albuterol/ Ipratropium (Duoneb) 3 ml Q4HRS W/A NEB Last administered on 07/14/18at 12:01; Start 07/13/18 at 10:00 Methylprednisolone Sodium Succinate (SOLU-Medrol 40MG VIAL) 40 mg Q12HR IV Last administered on 07/14/18at 08:23; Start 07/13/18 at 09:30 Budesonide (Pulmicort) 0.5 mg RTBID NEB Last administered on 07/14/18at 08:00; Start 07/13/18 at 10:00 Guaifenesin/ Codeine Phosphate (Robitussin Ac) 15 ml PRN Q6HRS PRN PO COUGH L ast administered on 07/14/18at 08:36; Start 07/13/18 at 09:15 Sodium Chloride 500 ml @ 500 mls/hr 1X ONCE IV Last administered on 07/13/18at 13:15; Start 07/13/18 at 13:15; Stop 07/13/18 at 14:14; Status DC Active Scripts Active Culturelle (Lactobacillus Rhamnosus Gg) 1 Each Cap.sprink 1 Cap PO BID 14 Days Simethicone 80 Mg Tab.chew 80 Mg PO PRN AFTMEALHC PRN 14 Days Duoneb 0.5-3(2.5) Mg/3 Ml (Albuterol/Ipratropium) 3 Ml Ampul.neb 3 Ml NEB RTQID MDD 1 Reported Senna (Sennosides) 8.6 Mg Tablet 8.6 Mg PO BID NICODERM CQ 7mg (Nicotine) 1 Each Patch.td24 1 Patch TD DAILY Maalox Advanced Suspension (Mag Hydrox/Aluminum Hyd/Simeth) 355 Ml Oral.susp 355 Ml PO PRN Q6HRS PRN Protonix (Pantoprazole Sodium) 40 Mg Tablet.dr 40 Mg PO DAILY Potassium Chloride 10 Meq Capsule.er 10 Meq PO DAILY Lasix (Furosemide) 20 Mg Tablet 1 Tab PO DAILY Advair 500-50 Diskus (Fluticasone/Salmeterol) 1 Each Disk.w.dev 1 Puff IH DAILY Spiriva (Tiotropium [place]) 18 Mcg Cap.w.dev 1 Cap IH DAILY Flomax (Tamsulosin Hcl) 0.4 Mg Cap.er.24h 1 Cap PO DAILY Metoprolol Tartrate 25 Mg Tablet 12.5 Mg PO BID Advair 250-50 Diskus (Fluticasone/Salmeterol) 1 Each Disk.w.dev 1 Each IH Vitals/I & O Vital Sign - Last 24 Hours 07/13/18 07/13/18 07/13/18 07/13/18 15:15 16:11 19:15 20:15 Temp 98.6 98.1 98.6 98.1 Pulse 100 104 Resp 20 16 B/P (MAP) 124/68 (86) 119/63 (81) Pulse Ox 95 95 99 O2 Delivery Nasal Cannula Nasal Cannula Nasal Cannula Nasal Cannula O2 Flow Rate 2.5 2.5 2.0 2.5 07/13/18 07/13/18 07/13/18 07/13/18 20:25 21:21 22:24 23:30 Temp 98.0 98.0 Pulse 100 91 Resp 18 B/P (MAP) 124/68 108/54 (72) Pulse Ox 95 98 93 O2 Delivery Nasal Cannula BiPAP/CPAP BiPAP/CPAP O2 Flow Rate 2.5 2.0 07/14/18 07/14/18 07/14/18 07/14/18 00:50 03:15 03:17 04:17 Temp 98.0 98.0 Pulse 95 Resp 18 B/P (MAP) 110/69 (83) Pulse Ox 98 90 98 95 O2 Delivery BiPAP/CPAP BiPAP/CPAP BiPAP/CPAP Nasal Cannula O2 Flow Rate 2.0 2.5 07/14/18 07/14/18 07/14/18 07/14/18 07:15 07:59 08:22 08:59 Temp 98.1 98.1 Pulse 97 97 Resp 18 B/P (MAP) 110/66 (81) 110/66 Pulse Ox 92 96 O2 Delivery Nasal Cannula Nasal Cannula Nasal Cannula O2 Flow Rate 2.0 2.5 2.5 07/14/18 07/14/18 11:06 12:02 Temp 98.3 98.3 Pulse 93 Resp 24 B/P (MAP) 130/76 (94) Pulse Ox 96 90 O2 Delivery Nasal Cannula Nasal Cannula O2 Flow Rate 2.5 2.5 Intake and Output 07/13/18 07/13/18 07/14/18 14:59 22:59 06:59 Intake Total 240 ml 640 ml 300 ml Output Total 300 ml 700 ml 300 ml Balance -60 ml -60 ml 0 ml Nutrition Consultation Dietary Evaluation: Recommendations by RD: Increase Calorie Intake, Protein supplementation Comments: ensure q day Expected Outcomes/Goals: to meet > 75% est nutr needs Malnutrition Findings: Body Fat Depletion (Non Severe: Mild Depletion Weight Status: Underweight MUSA HOYT MD July 14, 2018 13:17
[2018-07-15 03:08] VITALS: BP 123/62
[2018-07-15] MEDS: PANTOPRAZOLE 40 MG TABLET.DR. PO SCH (05:37)
[2018-07-15] MEDS: PIPERACILLIN/TAZOBACTAM 3.375 GM in IV NORMAL SALINE 50ML 50 ML IV SCH ×3 (05:37→17:00)
[2018-07-15] MEDS: IPRATRPIUM/ALBUTEROL 0.5/2.5MG 3 ML NEBU. NEB SCH ×5 (06:00→21:03)
[2018-07-15 07:00] VITALS: BP 114/56
[2018-07-15] MEDS: methylPREDNISolone SOD SUCC PF 40 MG/ML VIAL. IV SCH ×2 (08:04→21:20)
[2018-07-15] MEDS: ENOXAPARIN 40 MG/0.4 ML SYRINGE. SQ SCH (08:04)
[2018-07-15] MEDS: TAMSULOSIN 0.4 MG CAP.ER.24H. PO SCH (08:05)
[2018-07-15] MEDS: LACTOBACILLUS RHAMNOSUS GG 1 CAPSULE. PO SCH ×2 (08:05→21:21)
[2018-07-15] MEDS: FUROSEMIDE 20 MG TABLET PO SCH (08:05)
[2018-07-15] MEDS: SENNOSIDES 8.6 MG TABLET PO SCH ×2 (08:05→21:22)
[2018-07-15] MEDS: POTASSIUM CHLORIDE 10 MEQ TABLET.ER. PO SCH (08:05)
[2018-07-15] MEDS: NICOTINE 7MG PATCH. TD SCH (08:05)
[2018-07-15] MEDS: METOPROLOL TART IMMED RELEASE 25 MG TABLET. PO SCH ×2 (08:06→21:21)
[2018-07-15] MEDS: BUDESONIDE 0.5 MG/2 ML NEBU. NEB SCH ×2 (09:54→21:03)
[2018-07-15] MEDS: FLUTICASONE 50MCG/NASAL SPRAY 16GM BOTTLE. NS SCH ×2 (10:28→21:21)
[2018-07-15] MEDS ORDERED: BARIUM SULFATE 40% (APPLE) 148 GM PWD. PO ONE (10:30)
[2018-07-15 11:00] VITALS: BP 119/64
--- NOTE | 2018-07-15 13:02 | PDOC ---
PULMONARY PROGRESS NOTES Subjective no soa Vitals Vital Signs Date Time Temp Pulse Resp B/P (MAP) Pulse Ox O2 Delivery O2 Flow Rate FiO2 07/15/18 11:00 95 18 119/64 (82) 98 Nasal Cannula 3.0 07/15/18 07:00 96.8 96.8 General: Alert, No acute distress Lungs: Other (decrease bases) Cardiovascular: S1, S2 Abdomen: Soft, Non-tender Extremities: Other (1+edema) Medications Active Scripts Medications Dose Route/Sig Max Daily Dose Days Date Category Culturelle (Lactobacillus Rhamnosus Gg) 1 Each Cap.sprink 1 Cap PO BID 14 05/20/18 Rx Simethicone 80 Mg Tab.chew 80 Mg PO PRN AFTMEALHC PRN 14 05/20/18 Rx Senna (Sennosides) 8.6 Mg Tablet 8.6 Mg PO BID 05/18/18 Reported NICODERM CQ 7mg (Nicotine) 1 Each Patch.td24 1 Patch TD DAILY 05/18/18 Reported Maalox Advanced Suspension (Mag Hydrox/Aluminum Hyd/Simeth) 355 Ml Oral.susp 355 Ml PO PRN Q6HRS PRN 05/18/18 Reported Duoneb 0.5-3(2.5) Mg/3 Ml (Albuterol/Ipratropium) 3 Ml Ampul.neb 3 Ml NEB RTQID MDD 1 05/10/18 Rx Protonix (Pantoprazole Sodium) 40 Mg Tablet.dr 40 Mg PO DAILY 11/18/15 Reported Potassium Chloride 10 Meq Capsule.er 10 Meq PO DAILY 11/18/15 Reported Lasix (Furosemide) 20 Mg Tablet 1 Tab PO DAILY 11/18/15 Reported Advair 500-50 Diskus (Fluticasone/Salmeterol) 1 Each Disk.w.dev 1 Puff IH DAILY 10/11/15 Reported Spiriva (Tiotropium [place]) 18 Mcg Cap.w.dev 1 Cap IH DAILY 10/11/15 Reported Flomax (Tamsulosin Hcl) 0.4 Mg Cap.er.24h 1 Cap PO DAILY 10/11/15 Reported Metoprolol Tartrate 25 Mg Tablet 12.5 Mg PO BID 10/11/15 Reported Advair 250-50 Diskus (Fluticasone/Salmeterol) 1 Each Disk.w.dev 1 Each IH 12/16/[address] CHEST IMPRESSION: 1. There is some increased right lower lobe infiltrate such as near the lung base but also of the superior right lower lobe and right upper lobe. Findings could be on a postinfectious basis although underlying neoplastic etiology again not excludable. Assuming there are clinical findings of infection, short-term follow-up after treatment within 2 months is advised. If there are not findings suggestive of infection, PET CT or biopsy should be considered. 2. There is again fairly severe emphysema. 3. There is some coronary calcification. 4. There is stable mild mediastinal lymphadenopathy. Impression . 1. Acute on chronic hypoxic and hypercapnic respiratory failure secondary to acute exacerbation of chronic obstructive pulmonary disease and bilateral pneumonia. 2. Abnormal chest x-ray with patchy interstitial infiltrates, more prominent on the right lower lobe, but he has also involvement in other lobes as well. He had an abnormal CT chest in April with some reticular nodular inflammatory infiltrates as well. Repeat ct chest with increase RLL nodular infiltrate and RUL infiltrate 3. 40+ years of tobacco use and continues to smoke cigarettes and severe chronic obstructive pulmonary disease. Plan . RECOMMENDATIONS: 1. Continue with present bronchodilators. 2. P.r.n. BiPAP during the day and bedtime scheduled. Clinically, has improved with the BiPAP. 3. Broad-spectrum antibiotic to cover for gram-negative pneumonia. 4. Noncontrast CT chest reviewed. Likely infectious etiology, will need f/u ct chest in 2 months 5. DVT prophylaxis will be added. 6. We will repeat chest x-ray in am 7. Smoking cessation counseling provided. PAULA HAYNES MD July 15, 2018 13:01
--- NOTE | 2018-07-15 14:37 | RAD ---
Video dysphagia study, 07/15/2018: HISTORY: Possible aspiration pneumonia The swallowing mechanism was examined fluoroscopically in the lateral projection while the patient ingested a variety of food materials mixed with barium. 1.3 minutes of fluoroscopy time was utilized. One video fluoroscopic loop was recorded by member of the speech Department. The patient demonstrated good oral control of the barium materials. There was prompt initiation of pharyngeal peristalsis. The majority of the barium bolus passed normally through the cervical esophagus. There was no significant laryngeal penetration or aspiration during ingestion of the thin liquids, thickened materials or barium coated solids. The patient utilized a straw without difficulty. IMPRESSION: No significant abnormality is detected. Electronically signed by: Michael Ervin MD (07/15/2018 2:35 PM) [facility]
[2018-07-15 15:00] VITALS: BP 116/67
--- NOTE | 2018-07-15 15:35 | PDOC3 ---
Discharge Summary Visit Information Date of Admission: July 13, 2018 Date of Discharge: July 15, 2018 Admitting Diagnosis Comment: dysphagia aspiration pneumonitis COPD, severe disease with acute bronchitis tobacco use disorder corpulmonale, r CHF, Final Diagnosis aspiration pneumonitis ruled out COPD severe disease with acute bronchitis tobacco use disorder cor pulmonale, right sided chronic CHF, Acute on chronic hypoxic and hypercapnic respiratory failure secondary to the above Brief Hospital Course Allergies Allergies Coded Allergies Type Severity Reaction Last Updated Verified morphine Allergy Intermediate Itching 07/15/18 Yes Vital Signs Vital Signs Date Time Temp Pulse Resp B/P (MAP) Pulse Ox O2 Delivery O2 Flow Rate FiO2 07/15/18 15:00 98.2 102 18 116/67 (83) 94 Room Air 98.2 07/15/18 13:[address] CHEST WO CONTRAST Indication: Pneumonia Technique: Noncontrast CT imaging was performed of the chest, multiplanar reconstruction images submitted. One or more of the following individualized dose reduction techniques were utilized for this examination: 1. Automated exposure control 2. Adjustment of the mA and/or kV according to patient size 3. Use of iterative reconstruction technique. Comparison: May 18, 2018 Findings: There is no pleural or pericardial effusion or pneumothorax. There is increased right lower lobe infiltrate near the lung base, has a somewhat nodular morphology,. There are also some new small areas of somewhat nodular appearing infiltrate of the superior right lower lobe and also of the right upper lobe as seen on image 25 series 2 which measures about 1.8 cm. There is again fairly severe emphysema. There is again ectatic ascending thoracic aorta about 3.8 cm. There is coronary calcification. Pretracheal node about 1.1 cm short axis dimension is similar, some other smaller nodes also present as seen previously. IMPRESSION: 1. There is some increased right lower lobe infiltrate such as near the lung base but also of the superior right lower lobe and right upper lobe. Findings could be on a postinfectious basis although underlying neoplastic etiology again not excludable. Assuming there are clinical findings of infection, short-term follow-up after treatment within 2 months is advised. If there are not findings suggestive of infection, PET CT or biopsy should be considered. 2. There is again fairly severe emphysema. 3. There is some coronary calcification. 4. There is stable mild mediastinal lymphadenopathy. Electronically signed by: Salvador Alva MD (07/13/2018 2:40 PM) [facility] Brief Hospital Course Mr. Loredo is a 67 year oldmale brought in by EMS, he had sudden onset of syptoms after eating, then coughing, he has prior trouble swallowing, and thinks he may have had trouble with some food. Sudden marked cough, dyspnea, shortness of breath. 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 Hunt and the following recommendations were provided: IMPRESSION: 1. Acute on chronic hypoxic and hypercapnic respiratory failure secondary to acute exacerbation of chronic obstructive pulmonary disease and bilateral pneumonia. 2. Abnormal chest x-ray with patchy interstitial infiltrates, more prominent on the right lower lobe, but he has also involvement in other lobes as well. He had an abnormal CT chest in April with some reticular nodular inflammatory infiltrates. He would benefit from repeating the CT chest. 3. 40+ years of tobacco use and continues to smoke cigarettes and severe chronic obstructive pulmonary disease. RECOMMENDATIONS: 1. Continue with present bronchodilators. 2. P.r.n. BiPAP during the day and bedtime scheduled. Clinically, has improved with the BiPAP. 3. Broad-spectrum antibiotic to cover for gram-negative pneumonia. 4. Noncontrast CT chest. 5. DVT prophylaxis will be added. 6. We will repeat chest x-ray in few days after antibiotics. 7. Smoking cessation counseling provided. 8. echo Patient had an evaluation by speech therapy given the concerned of a possibility of aspiration pneumonitis. The patient underwent a video swallow evaluation with minimal aspiration and recommendations were given by speech therapy to the . The patient was deemed appropriate for discharge I discussed all the findings with patient's prior to dismissal. Signs and symptoms of alarm discussed in detail, the patient was also seen by physical therapy prior to dismissal and he was able to ambulate well. The concern also was for falls given that the patient had a history of his legs "giving out" at the beginning of his hospital stay. No acute events were reported during the evening prior to his dismissal and he is in good spirits to be going home Discharge Information Condition at Discharge: Improved Follow Up: Weeks Disposition/Orders: D/C to Home Scheduled Fluticasone/Salmeterol (Advair 500-50 Diskus) 1 Each Disk.w.dev, 1 PUFF IH TERRIE Y, #1 Ref 5 (Reported) Entered as Reported by: ROSEMARIE VILLANUEVA on 10/11/15413 Last Action: Converted on 07/13/18841 by VIRAL SERRANO Furosemide (Lasix) 20 Mg Tablet, 1 TAB PO DAILY, #90 Ref 1 (Reported) Entered as Reported by: Kate Casarez on 11/18/15 1156 Last Action: Continued on 07/13/18841 by VIRAL SERRANO Ipratropium/Albuterol Sulfate (Duoneb 0.5-3(2.5) Mg/3 Ml) 3 Ml Ampul.neb, 3 ML NEB RTQID for copd MDD 1, #30 Prescribed by: ALBERT MONTEZ on 05/10/18 1227 Last Action: Continued on 07/13/18841 by VIRAL SERRANO Lactobacillus Rhamnosus Gg (Culturelle) 1 Each Cap.sprink, 1 CAP PO BID for GI SUPPLEMENT for 14 Days, #28 Prescribed by: GARY BAEZ MD on 05/20/18 1105 Last Action: Continued on 07/13/18841 by VIRAL SERRANO Metoprolol Tartrate (Metoprolol Tartrate) 25 Mg Tablet, 12.5 MG PO BID, #180 Ref 1 (Reported) Entered as Reported by: ROSEMARIE VILLANUEVA on 10/11/15413 Last Action: Continued on 07/13/18841 by VIRAL SERRANO Nicotine (NICODERM CQ 7mg) 1 Each Patch.td24, 1 PATCH TD DAILY for smoking cessation, (Reported) Entered as Reported by: BALA RAMACHANDRAN on 05/18/18 1840 Last Action: Converted on 07/13/18841 by VIRAL SERRANO Pantoprazole Sodium (Protonix) 40 Mg Tablet.dr, 40 MG PO DAILY, Ref 1 (Reported) Entered as Reported by: Kate Casarez on 11/18/15 1229 Last Action: Continued on 07/13/18841 by VIRAL SERRANO Potassium Chloride (Potassium Chloride) 10 Meq Capsule.er, 10 MEQ PO DAILY, (Reported) Entered as Reported by: Kate Casarez on 11/18/15 1157 Last Action: Continued on 07/13/18841 by VIRAL SERRANO Sennosides (Senna) 8.6 Mg Tablet, 8.6 MG PO BID for constipation, (Reported) Entered as Reported by: BALA RAMACHANDRAN on 05/18/181839 Last Action: Converted on 07/13/18841 by VIRAL SERRANO Tamsulosin Hcl (Flomax) 0.4 Mg Cap.er.24h, 1 CAP PO DAILY, #30 Ref 11 (Reported) Entered as Reported by: ROSEMARIE VILLANUEVA on 10/11/15413 Last Action: Continued on 07/13/18841 by VIRAL SERRANO Tiotropium [place] (Spiriva) 18 Mcg Cap.w.dev, 1 CAP IH DAILY, #30 Ref 3 (Reported) Entered as Reported by: ROSEMARIE VILLANUEVA on 10/11/15413 Last Action: Converted on 07/13/18841 by VIRAL SERRANO Scheduled PRN Mag Hydrox/Aluminum Hyd/Simeth (Maalox Advanced Suspension) 355 Ml Oral.susp, 355 ML PO PRN Q6HRS PRN for HEARTBURN / GAS, (Reported) Entered as Reported by: BALA RAMACHANDRAN on 05/18/181839 Last Action: Converted on 07/13/18841 by VIRAL SERRANO Simethicone (Simethicone) 80 Mg Tab.chew, 80 MG PO PRN AFTMEALHC PRN for GAS / BLOATING for 14 Days, #30 Prescribed by: GARY BAEZ MD on 05/20/18 1105 Last Action: Continued on 07/13/18841 by VIRAL SERRANO Miscellaneous Medications Fluticasone/Salmeterol (Advair 250-50 Diskus) 1 Each Disk.w.dev, 1 EACH IH, (Reported) Entered as Reported by: RASHEL RIOS on 02/14/13 0618 MUSA HOYT MD July 15, 2018 15:35
[2018-07-15 19:00] VITALS: BP 105/61
[2018-07-15 21:07] VITALS: BP 105/61
[2018-07-16] MEDS: PIPERACILLIN/TAZOBACTAM 3.375 GM in IV NORMAL SALINE 50ML 50 ML IV SCH ×4 (00:44→17:31)
[2018-07-16 03:05] VITALS: BP 126/68
[2018-07-16 07:20] VITALS: BP 133/76
[2018-07-16] MEDS: BUDESONIDE 0.5 MG/2 ML NEBU. NEB SCH ×2 (07:52→20:51)
--- NOTE | 2018-07-16 08:04 | PDOC ---
PROGRESS NOTES Chief Complaint Chief Complaint dysphagia aspiration pneumonitis? COPD severe disease with acute bronchitis tobacco use disorder cor pulmonale, right sided chronic CHF, Acute on chronic hypoxic and hypercapnic respiratory failure secondary to the above Plan: Continue with antibiotics Supportive measures Further recommendations will be based on the clinical course Follow recommendations from pulmonology specialty sales consultant Assessing the a.m. CXR in am History of Present Illness History of Present Illness This is a late entry, wrong time of note entered by mistake yesterday. Note for 07/15/2018 Patient with improved symptoms. Still quite short of breath. I have encouraged more activity today, still complaining of some cough no fever or chills reported overnight Vitals Vitals Vital Signs Date Time Temp Pulse Resp B/P (MAP) Pulse Ox O2 Delivery O2 Flow Rate FiO2 07/16/18 07:55 93 Nasal Cannula 3.0 07/16/18 07:20 98.7 94 20 133/76 (95) 98.7 Physical Exam General: Alert, Oriented X3, Cooperative, mild distress Lungs: Other (decrease bases) Abdomen: Normal bowel sounds, Soft Extremities: No clubbing, No edema Skin: No rashes Review of Systems Review of Systems only pertinenet as per hpi otherwise 10 point ROS negative Assessment and Plan Assessmemt and Plan Problems Medical Problems: (1) Acute and chronic respiratory failure with hypoxia Status: Acute Comment Review of Relevant I have reviewed the following items zaire (where applicable) has been applied. Labs Microbiology 07/12/18 Blood Culture - Preliminary, Resulted NO GROWTH AFTER 3 DAYS Medications Current Medications Albuterol/ Ipratropium (Duoneb) 3 ml STK-MED ONCE .ROUTE ; Start 07/12/18 at 20:38; Stop 07/12/18 at 20:39; Status DC Albuterol/ Ipratropium (Duoneb) 3 ml 1X ONCE NEB Last administered on 07/12/18at 20:45; Start 07/12/18 at 20:45; Stop 07/12/18 at 20:46; Status DC Methylprednisolone Sodium Succinate (SOLU-Medrol 125MG VIAL) 125 mg 1X ONCE IV Last administered on 07/12/18at 21:15; Start 07/12/18 at 20:45; Stop 07/12/18 at 20:46; Status DC Furosemide (Lasix) 20 mg 1X ONCE IVP Last administered on 07/12/18at 22:40; Start 07/12/18 at 20:45; Stop 07/12/18 at 20:46; Status DC Piperacillin Sod/ Tazobactam Sod (Zosyn Per Pharmacy) 1 each PRN DAILY PRN MC SEE COMMENTS; Start 07/12/18 at 22:30; Stop 07/14/18 at 14:48; Status DC Albuterol/ Ipratropium (Duoneb) 3 ml RTQID NEB Last administered on 07/13/18at 08:00; Start 07/13/18 at 08:00; Stop 07/13/18 at 08:43; Status DC Piperacillin Sod/ Tazobactam Sod 3.375 gm/Sodium Chloride 50 ml @ 100 mls/hr Q6HRS IV Last administered on 07/16/18at 06:30; Start 07/12/18 at 23:00 Albuterol Sulfate (Ventolin Neb Soln) 2.5 mg PRN Q4HRS PRN NEB SHORTNESS OF BREATH Last administered on 07/14/18at 04:17; Start 07/13/18 at 05:00 Enoxaparin Sodium (Lovenox 40mg Syringe) 40 mg Q24H SQ Last administered on 07/15/18at 08:04; Start 07/13/18 at 09:00 Furosemide (Lasix) 20 mg DAILY PO Last administered on 07/15/18 08:05; Start 07/13/18 at 09:30 Albuterol/ Ipratropium (Duoneb) 3 ml RTQID NEB ; Start 07/13/18 at 12:00; Status UNV Lactobacillus Rhamnosus (Culturelle) 1 cap BID PO Last administered on 07/15/18at 21:21; Start 07/13/18 at 09:30 Metoprolol Tartrate (Lopressor) 12.5 mg BID PO Last administered on 07/15/18 21:21; Start 07/13/18 at 09:30 Pantoprazole Sodium (Protonix) 40 mg DAILYAC PO Last administered on 07/15/18at 05:37; Start 07/13/18 at 09:30 Potassium Chloride (Klor-Con) 10 meq DAILY PO Last administered on 07/15/18at 08:05; Start 07/13/18 at 09:30 Simethicone (Gas-X) 80 mg PRN AFTMEALHC PRN PO GAS / BLOATING; Start 07/13/18 at 08:45 Tamsulosin HCl (Flomax) 0.4 mg DAILY PO Last administered on 07/15/18at 08:05; Start 07/13/18 at 09:30 Non-Formulary Medication (Fluticasone/ Salmeterol (Advair 500-50 Diskus)) 1 puff DAILY IH ; Start 07/13/18 at 09:00; Status UNV Al Hydroxide/Mg Hydroxide (Mylanta Plus Xs) 30 ml PRN Q6HRS PRN PO HEARTBURN / GAS; Start 07/13/18 at 09:00 Nicotine (Nicoderm Cq 7mg) 1 patch DAILY TD Last administered on 07/15/18at 08:05; Start 07/13/18 at 09:30 Sennosides (Senna) 8.6 mg BID PO Last administered on 07/15/18at 21:22; Start 07/13/18 at 09:30 Non-Formulary Medication (Tiotropium [place] (Spiriva)) 1 cap DAILY IH ; Start 07/13/18 at 09:00; Status UNV Albuterol/ Ipratropium (Duoneb) 3 ml Q4HRS W/A NEB Last administered on 21:03; Start 07/13/18 at 10:00 Methylprednisolone Sodium Succinate (SOLU-Medrol 40MG VIAL) 40 mg Q12HR IV Last administered on 07/15/18at 21:20; Start 07/13/18 at 09:30 Budesonide (Pulmicort) 0.5 mg RTBID NEB Last administered on 07/16/18at 07:52; Start 07/13/18 at 10:00 Guaifenesin/ Codeine Phosphate (Robitussin Ac) 15 ml PRN Q6HRS PRN PO COUGH Last administered on 07/14/18 21:00; Start 07/13/18 at 09:15 Sodium Chloride 500 ml @ 500 mls/hr 1X ONCE IV Last administered on 07/13/18 13:15; Start 07/13/18 at 13:15; Stop 07/13/18 at 14:14; Status DC Barium Sulfate (Varibar Thin Liquid Apple) 148 gm 1X ONCE PO Last administered on 07/15/18at 10:30; Start 07/15/18 at 10:30; Stop 07/15/18 at 10:31; Status DC Fluticasone Propionate (Flonase) 2 spray BID NS Last administered on 07/15/18at 21:21; Start 07/15/18 at 11:00 Active Scripts Active Culturelle (Lactobacillus Rhamnosus Gg) 1 Each Cap.sprink 1 Cap PO BID 14 Days Simethicone 80 Mg Tab.chew 80 Mg PO PRN AFTMEALHC PRN 14 Days Duoneb 0.5-3(2.5) Mg/3 Ml (Albuterol/Ipratropium) 3 Ml Ampul.neb 3 Ml NEB RTQID MDD 1 Reported Senna (Sennosides) 8.6 Mg Tablet 8.6 Mg PO BID NICODERM CQ 7mg (Nicotine) 1 Each Patch.td24 1 Patch TD DAILY Maalox Advanced Suspension (Mag Hydrox/Aluminum Hyd/Simeth) 355 Ml Oral.susp 355 Ml PO PRN Q6HRS PRN Protonix (Pantoprazole Sodium) 40 Mg Tablet.dr 40 Mg PO DAILY Potassium Chloride 10 Meq Capsule.er 10 Meq PO DAILY Lasix (Furosemide) 20 Mg Tablet 1 Tab PO DAILY Advair 500-50 Diskus (Fluticasone/Salmeterol) 1 Each Disk.w.dev 1 Puff IH DAILY Spiriva (Tiotropium [place]) 18 Mcg Cap.w.dev 1 Cap IH DAILY Flomax (Tamsulosin Hcl) 0.4 Mg Cap.er.24h 1 Cap PO DAILY Metoprolol Tartrate 25 Mg Tablet 12.5 Mg PO BID Advair 250-50 Diskus (Fluticasone/Salmeterol) 1 Each Disk.w.dev 1 Each IH Vitals/I & O Vital Sign - Last 24 Hours 07/15/18 07/15/18 07/15/18 07/15/18 08:06 09:55 09:55 11:00 Pulse 93 95 Resp 18 B/P (MAP) 114/56 119/64 (82) Pulse Ox 95 95 98 O2 Delivery Nasal Cannula Nasal Cannula Nasal Cannula O2 Flow Rate 3.0 3.0 3.0 07/15/18 07/15/18 07/15/18 07/15/18 13:14 15:00 16:26 19:00 Temp 98.2 97.9 98.2 97.9 Pulse 102 101 Resp 18 18 B/P (MAP) 116/67 (83) 105/61 (76) Pulse Ox 94 94 O2 Delivery Nasal Cannula Nasal Cannula Nasal Cannula Nasal Cannula O2 Flow Rate 3.0 2.0 3.0 3.0 07/15/18 07/15/18 07/15/18 07/15/18 20:00 21:05 21:06 21:07 Temp 97.9 97.9 Pulse 101 Resp 18 B/P (MAP) 105/61 (76) Pulse Ox 98 98 94 O2 Delivery Nasal Cannula Nasal Cannula Nasal Cannula Room Air O2 Flow Rate 3.0 3.0 3.0 07/15/18 07/15/18 07/16/18 07/16/18 21:21 22:05 00:00 02:24 Pulse 101 B/P (MAP) 105/61 Pulse Ox 98 98 O2 Delivery BiPAP/CPAP BiPAP/CPAP BiPAP/CPAP 07/16/18 07/16/18 07/16/18 07/16/18 03:05 07:20 07:54 07:55 Temp 98.7 98.7 98.7 98.7 Pulse 96 94 Resp 18 20 B/P (MAP) 126/68 (87) 133/76 (95) Pulse Ox 94 95 93 93 O2 Delivery Room Air Room Air Nasal Cannula Nasal Cannula O2 Flow Rate 3.0 3.0 Intake and Output 07/15/18 07/15/18 07/16/18 14:59 22:59 06:59 Intake Total 200 ml Balance 200 ml Nutrition Consultation Dietary Evaluation: Recommendations by RD: Increase Calorie Intake, Protein supplementation Comments: ensure q day Expected Outcomes/Goals: to meet > 75% est nutr needs Malnutrition Findings: Body Fat Depletion (Non Severe: Mild Depletion Weight Status: Underweight MUSA HOYT MD July 16, 2018 08:03
[2018-07-16] MEDS: FLUTICASONE 50MCG/NASAL SPRAY 16GM BOTTLE. NS SCH ×2 (08:32→21:58)
[2018-07-16] MEDS: methylPREDNISolone SOD SUCC PF 40 MG/ML VIAL. IV SCH ×2 (08:32→21:15)
[2018-07-16] MEDS: ENOXAPARIN 40 MG/0.4 ML SYRINGE. SQ SCH (08:32)
[2018-07-16] MEDS: TAMSULOSIN 0.4 MG CAP.ER.24H. PO SCH (08:33)
[2018-07-16] MEDS: LACTOBACILLUS RHAMNOSUS GG 1 CAPSULE. PO SCH ×2 (08:33→21:15)
[2018-07-16] MEDS: NICOTINE 7MG PATCH. TD SCH (08:33)
[2018-07-16] MEDS: METOPROLOL TART IMMED RELEASE 25 MG TABLET. PO SCH ×2 (08:33→21:16)
[2018-07-16] MEDS: POTASSIUM CHLORIDE 10 MEQ TABLET.ER. PO SCH (08:33)
[2018-07-16] MEDS: PANTOPRAZOLE 40 MG TABLET.DR. PO SCH (08:33)
[2018-07-16] MEDS: SENNOSIDES 8.6 MG TABLET PO SCH ×2 (08:34→21:15)
[2018-07-16] MEDS: FUROSEMIDE 20 MG TABLET PO SCH (08:34)
[2018-07-16] MEDS: guaiFENesin/CODEINE 100mg/10mg 5 ML LIQUID PO PRN (08:37)
--- NOTE | 2018-07-16 08:45 | RAD ---
Portable chest, 07/16/2018: HISTORY: Pneumonia Comparison is made to a study from 07/12/2018. The heart size is normal. There is emphysema with parenchymal scarring. More prominent right basilar pulmonary markings are unchanged and again suggests superimposed pneumonia. No new pulmonary abnormality is seen. There is no evidence of pleural fluid. IMPRESSION: No significant change since 07/12/2018. Electronically signed by: Michael Ervin MD (07/16/2018 8:43 AM) [facility]
--- NOTE | 2018-07-16 10:43 | PDOC ---
PULMONARY PROGRESS NOTES Subjective no soa Vitals Vital Signs Date Time Temp Pulse Resp B/P (MAP) Pulse Ox O2 Delivery O2 Flow Rate FiO2 07/16/18 08:33 94 133/76 07/16/18 08:00 Nasal Cannula 3.0 07/16/18 07:55 93 07/16/18 07:20 98.7 20 98.7 General: Alert, No acute distress Lungs: Other (decrease bases) Cardiovascular: S1, S2 Abdomen: Soft, Non-tender Extremities: Other (1+edema) Medications Active Scripts Medications Dose Route/Sig Max Daily Dose Days Date Category Culturelle (Lactobacillus Rhamnosus Gg) 1 Each Cap.sprink 1 Cap PO BID 14 05/20/18 Rx Simethicone 80 Mg Tab.chew 80 Mg PO PRN AFTMEALHC PRN 14 05/20/18 Rx Senna (Sennosides) 8.6 Mg Tablet 8.6 Mg PO BID 05/18/18 Reported NICODERM CQ 7mg (Nicotine) 1 Each Patch.td24 1 Patch TD DAILY 05/18/18 Reported Maalox Advanced Suspension (Mag Hydrox/Aluminum Hyd/Simeth) 355 Ml Oral.susp 355 Ml PO PRN Q6HRS PRN 05/18/18 Reported Duoneb 0.5-3(2.5) Mg/3 Ml (Albuterol/Ipratropium) 3 Ml Ampul.neb 3 Ml NEB RTQID MDD 1 05/10/18 Rx Protonix (Pantoprazole Sodium) 40 Mg Tablet.dr 40 Mg PO DAILY 11/18/15 Reported Potassium Chloride 10 Meq Capsule.er 10 Meq PO DAILY 11/18/15 Reported Lasix (Furosemide) 20 Mg Tablet 1 Tab PO DAILY 11/18/15 Reported Advair 500-50 Diskus (Fluticasone/Salmeterol) 1 Each Disk.w.dev 1 Puff IH DAILY 10/11/15 Reported Spiriva (Tiotropium [place]) 18 Mcg Cap.w.dev 1 Cap IH DAILY 10/11/15 Reported Flomax (Tamsulosin Hcl) 0.4 Mg Cap.er.24h 1 Cap PO DAILY 10/11/15 Reported Metoprolol Tartrate 25 Mg Tablet 12.5 Mg PO BID 10/11/15 Reported Advair 250-50 Diskus (Fluticasone/Salmeterol) 1 Each Disk.w.dev 1 Each IH 12/16/[address] CHEST IMPRESSION: 1. There is some increased right lower lobe infiltrate such as near the lung base but also of the superior right lower lobe and right upper lobe. Findings could be on a postinfectious basis although underlying neoplastic etiology again not excludable. Assuming there are clinical findings of infection, short-term follow-up after treatment within 2 months is advised. If there are not findings suggestive of infection, PET CT or biopsy should be considered. 2. There is again fairly severe emphysema. 3. There is some coronary calcification. 4. There is stable mild mediastinal lymphadenopathy. Impression . 1. Acute on chronic hypoxic and hypercapnic respiratory failure secondary to acute exacerbation of chronic obstructive pulmonary disease and bilateral pneumonia. 2. Abnormal chest x-ray with patchy interstitial infiltrates, more prominent on the right lower lobe, but he has also involvement in other lobes as well. He had an abnormal CT chest in April with some reticular nodular inflammatory infiltrates as well. Repeat ct chest with increase RLL nodular infiltrate and RUL infiltrate 3. 40+ years of tobacco use and continues to smoke cigarettes and severe chronic obstructive pulmonary disease. Plan . RECOMMENDATIONS: 1. Continue with present bronchodilators. 2. P.r.n. BiPAP during the day and bedtime scheduled. Clinically, has improved with the BiPAP. 3. Broad-spectrum antibiotic to cover for gram-negative pneumonia. 4. Noncontrast CT chest reviewed. Likely infectious etiology, will need f/u ct chest in 2 months 5. DVT prophylaxis will be added. 6. We will repeat chest x-ray today with unchanged infiltrates, clinically improved 7. Smoking cessation counseling provided. PAULA HAYNES MD July 16, 2018 10:43
[2018-07-16 11:19] VITALS: BP 144/76
[2018-07-16] MEDS: IPRATRPIUM/ALBUTEROL 0.5/2.5MG 3 ML NEBU. NEB SCH ×5 (11:45→22:00)
[2018-07-16 15:17] VITALS: BP 129/74
--- NOTE | 2018-07-16 15:18 | NUR ---
PT recommends SNU. NETTIE spoke with pt and he stated he was at [facility] about three months ago and does not believe he needs SNU. Pt declined HH as well and reported he will think about it. Pt has home 02. Addendum: 07/16/18 at 1521 by HIRA SHEFFIELD Pt also has one day left for SNU and does not want to make co-payments.
--- NOTE | 2018-07-16 17:24 | PDOC ---
PROGRESS NOTES Chief Complaint Chief Complaint dysphagia aspiration pneumonitis? COPD severe disease with acute bronchitis tobacco use disorder cor pulmonale, right sided chronic CHF, Acute on chronic hypoxic and hypercapnic respiratory failure secondary to the above Plan: Continue with antibiotics Supportive measures Further recommendations will be based on the clinical course Follow recommendations from pulmonology real estate consultant Assessing the a.m. CXR in am History of Present Illness History of Present Illness Patient with no acute events continues to have very limited activity due to respiratory distress. Patient with no other complaints. Vitals Vitals Vital Signs Date Time Temp Pulse Resp B/P (MAP) Pulse Ox O2 Delivery O2 Flow Rate FiO2 07/16/18 15:39 Nasal Cannula 3.0 07/16/18 15:17 98.1 101 22 129/74 (92) 90 98.1 Physical Exam General: Alert, Oriented X3, Cooperative, mild distress Lungs: Other (decrease bases) Abdomen: Normal bowel sounds, Soft Extremities: No clubbing, No edema Skin: No rashes Review of Systems Review of Systems pertinent as per hpi otherwise negative Assessment and Plan Assessmemt and Plan Problems Medical Problems: (1) Acute and chronic respiratory failure with hypoxia Status: Acute Comment Review of Relevant I have reviewed the following items zaire (where applicable) has been applied. Labs Microbiology 07/12/18 Blood Culture - Preliminary, Resulted NO GROWTH AFTER 3 DAYS Medications Current Medications Albuterol/ Ipratropium (Duoneb) 3 ml STK-MED ONCE .ROUTE ; Start 07/12/18 at 20:38; Stop 07/12/18 at 20:39; Status DC Albuterol/ Ipratropium (Duoneb) 3 ml 1X ONCE NEB Last administered on 07/12/18a t 20:45; Start 07/12/18 at 20:45; Stop 07/12/18 at 20:46; Status DC Methylprednisolone Sodium Succinate (SOLU-Medrol 125MG VIAL) 125 mg 1X ONCE IV Last administered on 07/12/18at 21:15; Start 07/12/18 at 20:45; Stop 07/12/18 at 20:46; Status DC Furosemide (Lasix) 20 mg 1X ONCE IVP Last administered on 07/12/18at 22:40; Start 07/12/18 at 20:45; Stop 07/12/18 at 20:46; Status DC Piperacillin Sod/ Tazobactam Sod (Zosyn Per Pharmacy) 1 each PRN DAILY PRN MC SEE COMMENTS; Start 07/12/18 at 22:30; Stop 07/14/18 at 14:48; Status DC Albuterol/ Ipratropium (Duoneb) 3 ml RTQID NEB Last administered on 07/13/18at 08:00; Start 07/13/18 at 08:00; Stop 07/13/18 at 08:43; Status DC Piperacillin Sod/ Tazobactam Sod 3.375 gm/Sodium Chloride 50 ml @ 100 mls/hr Q6HRS IV Last administered on 07/16/18at 11:57; Start 07/12/18 at 23:00 Albuterol Sulfate (Ventolin Neb Soln) 2.5 mg PRN Q4HRS PRN NEB SHORTNESS OF BREATH Last administered on 07/14/18at 04:17; Start 07/13/18 at 05:00 Enoxaparin Sodium (Lovenox 40mg Syringe) 40 mg Q24H SQ Last administered on 07/16/18at 08:32; Start 07/13/18 at 09:00 Furosemide (Lasix) 20 mg DAILY PO Last administered on 07/16/18at 08:34; Start 07/13/18 at 09:30 Albuterol/ Ipratropium (Duoneb) 3 ml RTQID NEB ; Start 07/13/18 at 12:00; Status UNV Lactobacillus Rhamnosus (Culturelle) 1 cap BID PO Last administered on 07/16/18at 08:33; Start 07/13/18 at 09:30 Metoprolol Tartrate (Lopressor) 12.5 mg BID PO Last administered on 07/16/18at 08:33; Start 07/13/18 at 09:30 Pantoprazole Sodium (Protonix) 40 mg DAILYAC PO Last administered on 07/16/18at 08:33; Start 07/13/18 at 09:30 Potassium Chloride (Klor-Con) 10 meq DAILY PO Last administered on 07/16/18at 08:33; Start 07/13/18 at 09:30 Simethicone (Gas-X) 80 mg PRN AFTMEALHC PRN PO GAS / BLOATING; Start 07/13/18 at 08:45 Tamsulosin HCl (Flomax) 0.4 mg DAILY PO Last administered on 07/16/18at 08:33; Start 07/13/18 at 09:30 Non-Formulary Medication (Fluticasone/ Salmeterol (Advair 500-50 Diskus)) 1 puff DAILY IH ; Start 07/13/18 at 09:00; Status UNV Al Hydroxide/Mg Hydroxide (Mylanta Plus Xs) 30 ml PRN Q6HRS PRN PO HEARTBURN / GAS; Start 07/13/18 at 09:00 Nicotine (Nicoderm Cq 7mg) 1 patch DAILY TD Last administered on 07/16/18at 08:33; Start 07/13/18 at 09:30 Sennosides (Senna) 8.6 mg BID PO Last administered on 07/16/18at 08:34; Start 07/13/18 at 09:30 Non-Formulary Medication (Tiotropium [place] (Spiriva)) 1 cap DAILY IH ; Start 07/13/18 at 09:00; Status UNV Albuterol/ Ipratropium (Duoneb) 3 ml Q4HRS W/A NEB Last administered on 07/16/18at 15:38; Start 07/13/18 at 10:00 Methylprednisolone Sodium Succinate (SOLU-Medrol 40MG VIAL) 40 mg Q12HR IV Last administered on 07/16/18at 08:32; Start 07/13/18 at 09:30 Budesonide (Pulmicort) 0.5 mg RTBID NEB Last administered on 07/16/18at 07:52; Start 07/13/18 at 10:00 Guaifenesin/ Codeine Phosphate (Robitussin Ac) 15 ml PRN Q6HRS PRN PO COUGH Last administered on 07/16/18at 08:37; Start 07/13/18 at 09:15 Sodium Chloride 500 ml @ 500 mls/hr 1X ONCE IV Last administered on 07/13/18 13:15; Start 07/13/18 at 13:15; Stop 07/13/18 at 14:14; Status DC Barium Sulfate (Varibar Thin Liquid Apple) 148 gm 1X ONCE PO Last administered on 07/15/18at 10:30; Start 07/15/18 at 10:30; Stop 07/15/18 at 10:31; Status DC Fluticasone Propionate (Flonase) 2 spray BID NS Last administered on 07/16/18at 08:32; Start 07/15/18 at 11:00 Active Scripts Active Culturelle (Lactobacillus Rhamnosus Gg) 1 Each Cap.sprink 1 Cap PO BID 14 Days Simethicone 80 Mg Tab.chew 80 Mg PO PRN AFTMEALHC PRN 14 Days Duoneb 0.5-3(2.5) Mg/3 Ml (Albuterol/Ipratropium) 3 Ml Ampul.neb 3 Ml NEB RTQID MDD 1 Reported Senna (Sennosides) 8.6 Mg Tablet 8.6 Mg PO BID NICODERM CQ 7mg (Nicotine) 1 Each Patch.td24 1 Patch TD DAILY Maalox Advanced Suspension (Mag Hydrox/Aluminum Hyd/Simeth) 355 Ml Oral.susp 355 Ml PO PRN Q6HRS PRN Protonix (Pantoprazole Sodium) 40 Mg Tablet.dr 40 Mg PO DAILY Potassium Chloride 10 Meq Capsule.er 10 Meq PO DAILY Lasix (Furosemide) 20 Mg Tablet 1 Tab PO DAILY Advair 500-50 Diskus (Fluticasone/Salmeterol) 1 Each Disk.w.dev 1 Puff IH DAILY Spiriva (Tiotropium [place]) 18 Mcg Cap.w.dev 1 Cap IH DAILY Flomax (Tamsulosin Hcl) 0.4 Mg Cap.er.24h 1 Cap PO DAILY Metoprolol Tartrate 25 Mg Tablet 12.5 Mg PO BID Advair 250-50 Diskus (Fluticasone/Salmeterol) 1 Each Disk.w.dev 1 Each IH Vitals/I & O Vital Sign - Last 24 Hours 07/15/18 07/15/18 07/15/18 07/15/18 19:00 20:00 21:05 21:06 Temp 97.9 97.9 Pulse 101 Resp 18 B/P (MAP) 105/61 (76) Pulse Ox 94 98 98 O2 Delivery Nasal Cannula Nasal Cannula Nasal Cannula Nasal Cannula O2 Flow Rate 3.0 3.0 3.0 3.0 07/15/18 07/15/18 07/15/18 07/16/18 21:07 21:21 22:05 00:00 Temp 97.9 97.9 Pulse 101 101 Resp 18 B/P (MAP) 105/61 (76) 105/61 Pulse Ox 94 98 O2 Delivery Room Air BiPAP/CPAP BiPAP/CPAP 07/16/18 07/16/18 07/16/18 07/16/18 02:24 03:05 07:20 07:54 Temp 98.7 98.7 98.7 98.7 Pulse 96 94 Resp 18 20 B/P (MAP) 126/68 (87) 133/76 (95) Pulse Ox 98 94 95 93 O2 Delivery BiPAP/CPAP Room Air Room Air Nasal Cannula O2 Flow Rate 3.0 07/16/18 07/16/18 07/16/18 07/16/18 07:55 08:00 08:33 11:19 Temp 98.0 98.0 Pulse 94 108 Resp 22 B/P (MAP) 133/76 144/76 (98) Pulse Ox 93 91 O2 Delivery Nasal Cannula Nasal Cannula Room Air O2 Flow Rate 3.0 3.0 07/16/18 07/16/18 07/16/18 11:49 15:17 15:39 Temp 98.1 98.1 Pulse 101 Resp 22 B/P (MAP) 129/74 (92) Pulse Ox 90 O2 Delivery Nasal Cannula Room Air Nasal Cannula O2 Flow Rate 3.0 3.0 Intake and Output 07/15/18 07/15/18 07/16/18 15:00 23:00 07:00 Intake Total 200 ml Balance 200 ml Nutrition Consultation Dietary Evaluation: Recommendations by RD: Increase Calorie Intake, Protein supplementation Comments: ensure q day Expected Outcomes/Goals: to meet > 75% est nutr needs Malnutrition Findings: Body Fat Depletion (Non Severe: Mild Depletion Weight Status: Underweight MUSA HOYT MD July 16, 2018 17:24
[2018-07-16 19:00] VITALS: BP 133/74
[2018-07-16 23:00] VITALS: BP 131/76
[2018-07-17] MEDS: PIPERACILLIN/TAZOBACTAM 3.375 GM in IV NORMAL SALINE 50ML 50 ML IV SCH ×5 (00:40→23:35)
[2018-07-17 03:00] VITALS: BP 136/65
[2018-07-17] MEDS: BUDESONIDE 0.5 MG/2 ML NEBU. NEB SCH ×2 (05:34→20:19)
[2018-07-17] MEDS: IPRATRPIUM/ALBUTEROL 0.5/2.5MG 3 ML NEBU. NEB SCH ×5 (05:34→20:19)
[2018-07-17 07:15] VITALS: BP 139/79
--- NOTE | 2018-07-17 08:42 | PDOC ---
PULMONARY PROGRESS NOTES Subjective sob cough better, no pain, used bipap last night Vitals Vital Signs Date Time Temp Pulse Resp B/P (MAP) Pulse Ox O2 Delivery O2 Flow Rate FiO2 07/17/18 07:15 97.5 94 20 139/79 (99) 95 Nasal Cannula 3.0 97.5 ROS: No Nausea General: Alert, No acute distress HEENT: Other (nc at perrl ) Lungs: Wheezing, Other (decrease bases) Cardiovascular: S1, S2 Abdomen: Soft, Non-tender Neuro Exam: Alert Extremities: Other (1+edema) Skin: Warm Medications Active Scripts Medications Dose Route/Sig Max Daily Dose Days Date Category Culturelle (Lactobacillus Rhamnosus Gg) 1 Each Cap.sprink 1 Cap PO BID 14 05/20/18 Rx Simethicone 80 Mg Tab.chew 80 Mg PO PRN AFTMEALHC PRN 14 05/20/18 Rx Senna (Sennosides) 8.6 Mg Tablet 8.6 Mg PO BID 05/18/18 Reported NICODERM CQ 7mg (Nicotine) 1 Each Patch.td24 1 Patch TD DAILY 05/18/18 Reported Maalox Advanced Suspension (Mag Hydrox/Aluminum Hyd/Simeth) 355 Ml Oral.susp 355 Ml PO PRN Q6HRS PRN 05/18/18 Reported Duoneb 0.5-3(2.5) Mg/3 Ml (Albuterol/Ipratropium) 3 Ml Ampul.neb 3 Ml NEB RTQID MDD 1 05/10/18 Rx Protonix (Pantoprazole Sodium) 40 Mg Tablet.dr 40 Mg PO DAILY 11/18/15 Reported Potassium Chloride 10 Meq Capsule.er 10 Meq PO DAILY 11/18/15 Reported Lasix (Furosemide) 20 Mg Tablet 1 Tab PO DAILY 11/18/15 Reported Advair 500-50 Diskus (Fluticasone/Salmeterol) 1 Each Disk.w.dev 1 Puff IH DAILY 10/11/15 Reported Spiriva (Tiotropium [place]) 18 Mcg Cap.w.dev 1 Cap IH DAILY 10/11/15 Reported Flomax (Tamsulosin Hcl) 0.4 Mg Cap.er.24h 1 Cap PO DAILY 10/11/15 Reported Metoprolol Tartrate 25 Mg Tablet 12.5 Mg PO BID 10/11/15 Reported Advair 250-50 Diskus (Fluticasone/Salmeterol) 1 Each Disk.w.dev 1 Each IH 02/14/[address] CHEST IMPRESSION: 1. There is some increased right lower lobe infiltrate such as near the lung base but also of the superior right lower lobe and right upper lobe. Findings could be on a postinfectious basis although underlying neoplastic etiology again not excludable. Assuming there are clinical findings of infection, short-term follow-up after treatment within 2 months is advised. If there are not findings suggestive of infection, PET CT or biopsy should be considered. 2. There is again fairly severe emphysema. 3. There is some coronary calcification. 4. There is stable mild mediastinal lymphadenopathy. Impression . 1. Acute on chronic hypoxic and hypercapnic respiratory failure secondary to acute exacerbation of chronic obstructive pulmonary disease and bilateral pneumonia. 2. Abnormal chest x-ray with patchy interstitial infiltrates, more prominent on the right lower lobe, but he has also involvement in other lobes as well. He had an abnormal CT chest in April with some reticular nodular inflammatory infiltrates as well. Repeat ct chest with increase RLL nodular infiltrate and RUL infiltrate 3. 40+ years of tobacco use and continues to smoke cigarettes and severe chronic obstructive pulmonary disease. Plan . RECOMMENDATIONS: 1. Continue with present bronchodilators. 2. P.r.n. BiPAP during the day and bedtime scheduled. Clinically, has improved with the BiPAP. 3. Broad-spectrum antibiotic to cover for gram-negative pneumonia. 4. Noncontrast CT chest reviewed. Likely infectious etiology, will need f/u ct chest in 2 months 5. DVT prophylaxis will be added. 6. repeat chest x-ray with unchanged infiltrates, clinically improved 7. Smoking cessation counseling provided. 8. cont solumedrol, no dose change, still wheezing discussed w MARITZA Manriquez MD July 17, 2018 08:42
[2018-07-17] MEDS: LACTOBACILLUS RHAMNOSUS GG 1 CAPSULE. PO SCH ×2 (08:43→21:23)
[2018-07-17] MEDS: TAMSULOSIN 0.4 MG CAP.ER.24H. PO SCH (08:43)
[2018-07-17] MEDS: SENNOSIDES 8.6 MG TABLET PO SCH ×2 (08:43→21:23)
[2018-07-17] MEDS: PANTOPRAZOLE 40 MG TABLET.DR. PO SCH (08:43)
[2018-07-17] MEDS: METOPROLOL TART IMMED RELEASE 25 MG TABLET. PO SCH ×2 (08:44→21:23)
[2018-07-17] MEDS: FUROSEMIDE 20 MG TABLET PO SCH (08:44)
[2018-07-17] MEDS: POTASSIUM CHLORIDE 10 MEQ TABLET.ER. PO SCH (08:44)
[2018-07-17] MEDS: FLUTICASONE 50MCG/NASAL SPRAY 16GM BOTTLE. NS SCH ×2 (08:45→21:26)
[2018-07-17] MEDS: ENOXAPARIN 40 MG/0.4 ML SYRINGE. SQ SCH (08:46)
[2018-07-17] MEDS: methylPREDNISolone SOD SUCC PF 40 MG/ML VIAL. IV SCH ×2 (08:47→21:24)
[2018-07-17] MEDS: NICOTINE 7MG PATCH. TD SCH (08:47)
[2018-07-17 11:00] VITALS: BP_SYST 143; BP_SYST 144; BP_DIAS 60; BP_DIAS 68
--- NOTE | 2018-07-17 14:00 | NUR ---
Short cycle of tachycardia was successfully slowed by patient coughing to stimulate the vagus nerve.
[2018-07-17 15:00] VITALS: BP 142/60
--- NOTE | 2018-07-17 17:34 | PDOC ---
PROGRESS NOTES Chief Complaint Chief Complaint dysphagia aspiration pneumonitis? COPD severe disease with acute bronchitis tobacco use disorder cor pulmonale, right sided chronic CHF, Acute on chronic hypoxic and hypercapnic respiratory failure secondary to the above Plan: Continue with antibiotics Supportive measures Further recommendations will be based on the clinical course Follow recommendations from pulmonology real estate consultant Assessing the a.m. CXR in am History of Present Illness History of Present Illness Patient with no acute events seems to have improved a little bit hoping to be dismissed in the a.m. Vitals Vitals Vital Signs Date Time Temp Pulse Resp B/P (MAP) Pulse Ox O2 Delivery O2 Flow Rate FiO2 07/17/18 16:33 Nasal Cannula 3.0 07/17/18 15:43 92 07/17/18 15:00 97.9 104 20 142/60 (87) 97.9 Physical Exam General: Alert, Oriented X3, Cooperative, mild distress Lungs: Wheezing, Other (decrease bases) Abdomen: Normal bowel sounds, Soft Extremities: No clubbing, No edema Skin: No rashes Review of Systems Review of Systems Pertinent as per history of present illness otherwise 14 point review of system is negative Assessment and Plan Assessmemt and Plan Problems Medical Problems: (1) Acute and chronic respiratory failure with hypoxia Status: Acute Comment Review of Relevant I have reviewed the following items zaire (where applicable) has been applied. Labs Microbiology 07/12/18 Blood Culture - Preliminary, Resulted NO GROWTH AFTER 4 DAYS Medications Current Medications Albuterol/ Ipratropium (Duoneb) 3 ml STK-MED ONCE .ROUTE ; Start 07/12/18 at 20:38; Stop 07/12/18 at 20:39; Status DC Albuterol/ Ipratropium (Duoneb) 3 ml 1X ONCE NEB Last administered on 07/12/18at 20:45; Start 07/12/18 at 20:45; Stop 07/12/18 at 20:46; Status DC Methylprednisolone Sodium Succinate (SOLU-Medrol 125MG VIAL) 125 mg 1X ONCE IV Last administered on 07/12/18at 21:15; Start 07/12/18 at 20:45; Stop 07/12/18 at 20:46; Status DC Furosemide (Lasix) 20 mg 1X ONCE IVP Last administered on 07/12/18at 22:40; Start 07/12/18 at 20:45; Stop 07/12/18 at 20:46; Status DC Piperacillin Sod/ Tazobactam Sod (Zosyn Per Pharmacy) 1 each PRN DAILY PRN MC SEE COMMENTS; Start 07/12/18 at 22:30; Stop 07/14/18 at 14:48; Status DC Albuterol/ Ipratropium (Duoneb) 3 ml RTQID NEB Last administered on 07/13/18at 08:00; Start 07/13/18 at 08:00; Stop 07/13/18 at 08:43; Status DC Piperacillin Sod/ Tazobactam Sod 3.375 gm/Sodium Chloride 50 ml @ 100 mls/hr Q6HRS IV Last administered on 07/17/18at 17:14; Start 07/12/18 at 23:00 Albuterol Sulfate (Ventolin Neb Soln) 2.5 mg PRN Q4HRS PRN NEB SHORTNESS OF BREATH Last administered on 07/14/18at 04:17; Start 07/13/18 at 05:00 Enoxaparin Sodium (Lovenox 40mg Syringe) 40 mg Q24H SQ Last administered on 07/17/18at 08:46; Start 07/13/18 at 09:00 Furosemide (Lasix) 20 mg DAILY PO Last administered on 07/17/18at 08:44; Start 07/13/18 at 09:30 Albuterol/ Ipratropium (Duoneb) 3 ml RTQID NEB ; Start 07/13/18 at 12:00; Status UNV Lactobacillus Rhamnosus (Culturelle) 1 cap BID PO Last administered on at 08:43; Start 07/13/18 at 09:30 Metoprolol Tartrate (Lopressor) 12.5 mg BID PO Last administered on 07/17/18at 08:44; Start 07/13/18 at 09:30 Pantoprazole Sodium (Protonix) 40 mg DAILYAC PO Last administered on 07/17/18at 08:43; Start 07/13/18 at 09:30 Potassium Chloride (Klor-Con) 10 meq DAILY PO Last administered on 07/17/18at 08:44; Start 07/13/18 at 09:30 Simethicone (Gas-X) 80 mg PRN AFTMEALHC PRN PO GAS / BLOATING; Start 07/13/18 at 08:45 Tamsulosin HCl (Flomax) 0.4 mg DAILY PO Last administered on 07/17/18 08:43; Start 07/13/18 at 09:30 Non-Formulary Medication (Fluticasone/ Salmeterol (Advair 500-50 Diskus)) 1 puff DAILY IH ; Start 07/13/18 at 09:00; Status UNV Al Hydroxide/Mg Hydroxide (Mylanta Plus Xs) 30 ml PRN Q6HRS PRN PO HEARTBURN / GAS; Start 07/13/18 at 09:00 Nicotine (Nicoderm Cq 7mg) 1 patch DAILY TD Last administered on 07/17/18 08:47; Start 07/13/18 at 09:30 Sennosides (Senna) 8.6 mg BID PO Last administered on 07/17/18 08:43; Start 07/13/18 at 09:30 Non-Formulary Medication (Tiotropium [place] (Spiriva)) 1 cap DAILY IH ; Start 07/13/18 at 09:00; Status UNV Albuterol/ Ipratropium (Duoneb) 3 ml Q4HRS W/A NEB Last administered on 07/17/18 15:43; Start 07/13/18 at 10:00 Methylprednisolone Sodium Succinate (SOLU-Medrol 40MG VIAL) 40 mg Q12HR IV Last administered on 07/17/18 08:47; Start 07/13/18 at 09:30 Budesonide (Pulmicort) 0.5 mg RTBID NEB Last administered on 07/17/18 05:34; Start 07/13/18 at 10:00 Guaifenesin/ Codeine Phosphate (Robitussin Ac) 15 ml PRN Q6HRS PRN PO COUGH Last administered on 07/16/18 08:37; Start 07/13/18 at 09:15 Sodium Chloride 500 ml @ 500 mls/hr 1X ONCE IV Last administered on 07/13/18 13:15; Start 07/13/18 at 13:15; Stop 07/13/18 at 14:14; Status DC Barium Sulfate (Varibar Thin Liquid Apple) 148 gm 1X ONCE PO Last administered on 07/15/18at 10:30; Start 07/15/18 at 10:30; Stop 07/15/18 at 10:31; Status DC Fluticasone Propionate (Flonase) 2 spray BID NS Last administered on 07/17/18at 08:45; Start 07/15/18 at 11:00 Active Scripts Active Culturelle (Lactobacillus Rhamnosus Gg) 1 Each Cap.sprink 1 Cap PO BID 14 Days Simethicone 80 Mg Tab.chew 80 Mg PO PRN AFTMEALHC PRN 14 Days Duoneb 0.5-3(2.5) Mg/3 Ml (Albuterol/Ipratropium) 3 Ml Ampul.neb 3 Ml NEB RTQID MDD 1 Reported Senna (Sennosides) 8.6 Mg Tablet 8.6 Mg PO BID NICODERM CQ 7mg (Nicotine) 1 Each Patch.td24 1 Patch TD DAILY Maalox Advanced Suspension (Mag Hydrox/Aluminum Hyd/Simeth) 355 Ml Oral.susp 355 Ml PO PRN Q6HRS PRN Protonix (Pantoprazole Sodium) 40 Mg Tablet.dr 40 Mg PO DAILY Potassium Chloride 10 Meq Capsule.er 10 Meq PO DAILY Lasix (Furosemide) 20 Mg Tablet 1 Tab PO DAILY Advair 500-50 Diskus (Fluticasone/Salmeterol) 1 Each Disk.w.dev 1 Puff IH DAILY Spiriva (Tiotropium Stilwell) 18 Mcg Cap.w.dev 1 Cap IH DAILY Flomax (Tamsulosin Hcl) 0.4 Mg Cap.er.24h 1 Cap PO DAILY Metoprolol Tartrate 25 Mg Tablet 12.5 Mg PO BID Advair 250-50 Diskus (Fluticasone/Salmeterol) 1 Each Disk.w.dev 1 Each IH Vitals/I & O Vital Sign - Last 24 Hours 07/16/18 07/16/18 07/16/18 07/16/18 19:00 20:00 20:52 20:52 Temp 98.4 98.4 Pulse 106 Resp 16 B/P (MAP) 133/74 (93) Pulse Ox 96 91 91 O2 Delivery Room Air Nasal Cannula Nasal Cannula Nasal Cannula O2 Flow Rate 3.0 3.0 3.0 07/16/18 07/16/18 07/16/18 07/17/18 21:16 22:08 23:00 03:00 Temp 98.3 97.9 98.3 97.9 Pulse 69 85 Resp 18 16 B/P (MAP) 129/74 131/76 (94) 136/65 (88) Pulse Ox 96 95 98 O2 Delivery BiPAP/CPAP Room Air Room Air 07/17/18 07/17/18 07/17/18 07/17/18 06:00 07:15 08:00 08:44 Temp 97.5 97.5 Pulse 94 94 Resp 20 B/P (MAP) 139/79 (99) 139/79 Pulse Ox 86 95 O2 Delivery Nasal Cannula Nasal Cannula Nasal Cannula O2 Flow Rate 2.0 3.0 3.0 07/17/18 07/17/18 07/17/18 07/17/18 11:00 11:10 15:00 15:43 Temp 98.1 97.9 98.1 97.9 Pulse 98 104 Resp 18 20 B/P (MAP) 144/68 (93) 142/60 (87) Pulse Ox 92 92 94 92 O2 Delivery Nasal Cannula Nasal Cannula Nasal Cannula Nasal Cannula O2 Flow Rate 3.0 3.0 3.0 3.0 07/17/18 16:33 O2 Delivery Nasal Cannula O2 Flow Rate 3.0 Intake and Output 07/16/18 07/16/18 07/17/18 15:00 23:00 07:00 Intake Total 350 ml 200 ml Output Total 900 ml Balance 350 ml 200 ml -900 ml Nutrition Consultation Dietary Evaluation: Recommendations by RD: Increase Calorie Intake, Protein supplementation Comments: ensure q day Expected Outcomes/Goals: to meet > 75% est nutr needs Malnutrition Findings: Body Fat Depletion (Non Severe: Mild Depletion Weight Status: Underweight MUSA HOYT MD July 17, 2018 17:34
[2018-07-17 19:39] VITALS: BP 146/83
[2018-07-17 23:13] VITALS: BP 125/80
[2018-07-18 03:00] VITALS: BP 124/74
[2018-07-18] MEDS: PIPERACILLIN/TAZOBACTAM 3.375 GM in IV NORMAL SALINE 50ML 50 ML IV SCH ×2 (06:10→12:00)
[2018-07-18] MEDS: BUDESONIDE 0.5 MG/2 ML NEBU. NEB SCH (06:25)
[2018-07-18] MEDS: IPRATRPIUM/ALBUTEROL 0.5/2.5MG 3 ML NEBU. NEB SCH ×2 (06:25→12:06)
[2018-07-18 07:10] VITALS: BP 129/72
[2018-07-18] MEDS: PANTOPRAZOLE 40 MG TABLET.DR. PO SCH (07:34)
--- NOTE | 2018-07-18 08:45 | PDOC ---
PULMONARY PROGRESS NOTES Subjective feels better, sob cough better, no pain, used bipap last night Vitals Vital Signs Date Time Temp Pulse Resp B/P (MAP) Pulse Ox O2 Delivery O2 Flow Rate FiO2 07/18/18 07:35 Nasal Cannula 3.0 07/18/18 07:10 97.6 96 20 129/72 (91) 94 97.6 ROS: No Nausea General: Alert, No acute distress HEENT: Other (nc at perrl ) Lungs: Other (decrease bases) Cardiovascular: S1, S2 Abdomen: Soft, Non-tender Neuro Exam: Alert Extremities: Other (1+edema) Skin: Warm Medications Active Scripts Medications Dose Route/Sig Max Daily Dose Days Date Category Culturelle (Lactobacillus Rhamnosus Gg) 1 Each Cap.sprink 1 Cap PO BID 14 05/20/18 Rx Simethicone 80 Mg Tab.chew 80 Mg PO PRN AFTMEALHC PRN 14 05/20/18 Rx Senna (Sennosides) 8.6 Mg Tablet 8.6 Mg PO BID 05/18/18 Reported NICODERM CQ 7mg (Nicotine) 1 Each Patch.td24 1 Patch TD DAILY 05/18/18 Reported Maalox Advanced Suspension (Mag Hydrox/Aluminum Hyd/Simeth) 355 Ml Oral.susp 355 Ml PO PRN Q6HRS PRN 05/18/18 Reported Duoneb 0.5-3(2.5) Mg/3 Ml (Albuterol/Ipratropium) 3 Ml Ampul.neb 3 Ml NEB RTQID MDD 1 05/10/18 Rx Protonix (Pantoprazole Sodium) 40 Mg Tablet.dr 40 Mg PO DAILY 11/18/15 Reported Potassium Chloride 10 Meq Capsule.er 10 Meq PO DAILY 11/18/15 Reported Lasix (Furosemide) 20 Mg Tablet 1 Tab PO DAILY 11/18/15 Reported Advair 500-50 Diskus (Fluticasone/Salmeterol) 1 Each Disk.w.dev 1 Puff IH DAILY 10/11/15 Reported Spiriva (Tiotropium [place]) 18 Mcg Cap.w.dev 1 Cap IH DAILY 10/11/15 Reported Flomax (Tamsulosin Hcl) 0.4 Mg Cap.er.24h 1 Cap PO DAILY 10/11/15 Reported Metoprolol Tartrate 25 Mg Tablet 12.5 Mg PO BID 10/11/15 Reported Advair 250-50 Diskus (Fluticasone/Salmeterol) 1 Each Disk.w.dev 1 Each IH 02/14/[address] CHEST IMPRESSION: 1. There is some increased right lower lobe infiltrate such as near the lung base but also of the superior right lower lobe and right upper lobe. Findings could be on a postinfectious basis although underlying neoplastic etiology again not excludable. Assuming there are clinical findings of infection, short-term follow-up after treatment within 2 months is advised. If there are not findings suggestive of infection, PET CT or biopsy should be considered. 2. There is again fairly severe emphysema. 3. There is some coronary calcification. 4. There is stable mild mediastinal lymphadenopathy. Impression . 1. Acute on chronic hypoxic and hypercapnic respiratory failure secondary to acute exacerbation of chronic obstructive pulmonary disease and bilateral pneumonia. 2. Abnormal chest x-ray with patchy interstitial infiltrates, more prominent on the right lower lobe, but he has also involvement in other lobes as well. He had an abnormal CT chest in April with some reticular nodular inflammatory infiltrates as well. Repeat ct chest with increase RLL nodular infiltrate and RUL infiltrate 3. 40+ years of tobacco use and continues to smoke cigarettes and severe chronic obstructive pulmonary disease. Plan . RECOMMENDATIONS: 1. Continue with present bronchodilators. 2. P.r.n. BiPAP during the day and bedtime scheduled, setting reviewed. Clinically, has improved with the BiPAP. 3. Broad-spectrum antibiotic to cover for gram-negative pneumonia. 4. Noncontrast CT chest reviewed. Likely infectious etiology, will need f/u ct chest in 2 months and fu w dr ramos 5. DVT prophylaxis will be added. 6. repeat chest x-ray with unchanged infiltrates, clinically improved 7. Smoking cessation counseling provided, advised to quit smoking for ever. 8. change solumedrol to 40 mg daily 9. increase activity discussed w pt. MARITZA Gilliland MD July 18, 2018 08:45
[2018-07-18] MEDS: FLUTICASONE 50MCG/NASAL SPRAY 16GM BOTTLE. NS SCH (08:57)
[2018-07-18] MEDS: SENNOSIDES 8.6 MG TABLET PO SCH (08:58)
[2018-07-18] MEDS: TAMSULOSIN 0.4 MG CAP.ER.24H. PO SCH (08:58)
[2018-07-18] MEDS: ENOXAPARIN 40 MG/0.4 ML SYRINGE. SQ SCH (08:58)
[2018-07-18] MEDS: LACTOBACILLUS RHAMNOSUS GG 1 CAPSULE. PO SCH (08:58)
[2018-07-18] MEDS: FUROSEMIDE 20 MG TABLET PO SCH (08:59)
[2018-07-18] MEDS: POTASSIUM CHLORIDE 10 MEQ TABLET.ER. PO SCH (08:59)
[2018-07-18] MEDS: METOPROLOL TART IMMED RELEASE 25 MG TABLET. PO SCH (08:59)
[2018-07-18] MEDS: NICOTINE 7MG PATCH. TD SCH (09:00)
[2018-07-18] MEDS ORDERED: methylPREDNISolone SOD SUCC PF 40 MG/ML VIAL. IV SCH (09:00)
[2018-07-18 11:08] VITALS: BP 125/58
--- NOTE | 2018-07-18 13:37 | PDOC3 ---
Discharge Summary Visit Information Date of Admission: July 13, 2018 Date of Discharge: July 18, 2018 Admitting Diagnosis: Acute copd exacerbation Final Diagnosis COPD severe disease with acute bronchitis tobacco use disorder cor pulmonale, right sided chronic CHF, Acute on chronic hypoxic and hypercapnic respiratory failure secondary to the above Brief Hospital Course Allergies Allergies Coded Allergies Type Severity Reaction Last Updated Verified morphine Allergy Intermediate Itching 07/15/18 Yes Vital Signs Vital Signs Date Time Temp Pulse Resp B/P (MAP) Pulse Ox O2 Delivery O2 Flow Rate FiO2 07/18/18 12:06 Nasal Cannula 3.0 07/18/18 11:08 98.3 104 20 125/58 (80) 93 98.3 General: Alert, Oriented X3, Cooperative, mild distress HEENT: Atraumatic, PERRLA Lungs: Other (rales, wheeze, low volume) Abdomen: Normal bowel sounds, Soft Rectal Exam: not examined Extremities: No clubbing, No edema Skin: No rashes Neuro: Normal tone, Sensation intact, Cranial nerves 3-12 NL Psych/Mental Status: Mood NL Brief Hospital Course Mr. Loredo is a 67 year old male brought in by EMS, he had sudden onset of syptoms after eating, then coughing, he has prior trouble swallowing, and thinks he may have had trouble with some food. Sudden marked cough, dyspnea, shortness of breath. 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 Serrano notes patient quite well. The patient lives with his niece but denied sick contacts most likely is weather related and of course his advanced emphysema. Reassurance has been provided to the patient he did not percent adverse outcomes in the hospital setting and he had a very slow recovery but certainly feels much improved going home. Signs and symptoms of alarm were discussed with the patient prior to discharge all of his concerns were addressed to the best of my abilities Discharge Information Condition at Discharge: Improved Follow Up: Weeks Disposition/Orders: D/C to Home Scheduled Fluticasone/Salmeterol (Advair 500-50 Diskus) 1 Each Disk.w.dev, 1 PUFF IH DAILY, #1 Ref 5 (Reported) Entered as Reported by: ROSEMARIE VILLANUEVA on 10/11/15413 Last Action: Converted on 07/13/18841 by VIRAL SERRANO Furosemide (Lasix) 20 Mg Tablet, 1 TAB PO DAILY, #90 Ref 1 (Reported) Entered as Reported by: Kate Casarez on 11/18/15 1156 Last Action: Continued on 07/13/18841 by VIRAL SERRANO Ipratropium/Albuterol Sulfate (Duoneb 0.5-3(2.5) Mg/3 Ml) 3 Ml Ampul.neb, 3 ML NEB RTQID for copd MDD 1, #30 Prescribed by: ALBERT MONTEZ on 05/10/18 1227 Last Action: Continued on 07/13/18841 by VIRAL SERRANO Lactobacillus Rhamnosus Gg (Culturelle) 1 Each Cap.sprink, 1 CAP PO BID for GI SUPPLEMENT for 14 Days, #28 Prescribed by: GARY BAEZ MD on 05/20/18 1105 Last Action: Continued on 07/13/18841 by VIRAL SERRANO Metoprolol Tartrate (Metoprolol Tartrate) 25 Mg Tablet, 12.5 MG PO BID, #180 Ref 1 (Reported) Entered as Reported by: ROSEMARIE VILLANUEVA on 10/11/15413 Last Action: Continued on 07/13/18841 by VIRAL SERRANO Nicotine (NICODERM CQ 7mg) 1 Each Patch.td24, 1 PATCH TD DAILY for smoking cessation, (Reported) Entered as Reported by: BALA RAMACHANDRAN on 05/18/181839 Last Action: Converted on 07/13/18841 by VIRAL SERRANO Pantoprazole Sodium (Protonix) 40 Mg Tablet.dr, 40 MG PO DAILY, Ref 1 (Reported) Entered as Reported by: Kate Casarez on 11/18/15 1229 Last Action: Continued on 07/13/18841 by VIRAL SERRANO Potassium Chloride (Potassium Chloride) 10 Meq Capsule.er, 10 MEQ PO DAILY, (Reported) Entered as Reported by: Kate Casarez on 11/18/15 1157 Last Action: Continued on 07/13/18841 by VIRAL SERRANO Sennosides (Senna) 8.6 Mg Tablet, 8.6 MG PO BID for constipation, (Reported) Entered as Reported by: BALA RAMACHANDRAN on 05/18/181839 Last Action: Converted on 07/13/18841 by VIRAL SERRANO Tamsulosin Hcl (Flomax) 0.4 Mg Cap.er.24h, 1 CAP PO DAILY, #30 Ref 11 (Reported) Entered as Reported by: ROSEMARIE VILLANUEVA on 10/11/15413 Last Action: Continued on 07/13/18841 by VIRAL SERRANO Tiotropium [place] (Spiriva) 18 Mcg Cap.w.dev, 1 CAP IH DAILY, #30 Ref 3 (Reported) Entered as Reported by: ROSEMARIE VILLANUEVA on 10/11/15413 Last Action: Converted on 07/13/18841 by VIRAL SERRANO Scheduled PRN Mag Hydrox/Aluminum Hyd/Simeth (Maalox Advanced Suspension) 355 Ml Oral.susp, 355 ML PO PRN Q6HRS PRN for HEARTBURN / GAS, (Reported) Entered as Reported by: BALA RAMACHANDRAN on 05/18/181839 Last Action: Converted on 07/13/18841 by VIRAL SERRANO Simethicone (Simethicone) 80 Mg Tab.chew, 80 MG PO PRN AFTMEALHC PRN for GAS / BLOATING for 14 Days, #30 Prescribed by: GARY BAEZ MD on 05/20/18 1105 Last Action: Continued on 07/13/18841 by VIRAL SERRANO Miscellaneous Medications Fluticasone/Salmeterol (Advair 250-50 Diskus) 1 Each Disk.w.dev, 1 EACH IH, (Reported) Entered as Reported by: RASHEL RIOS on 02/14/13 0618 MUSA HOYT MD July 18, 2018 13:37
--- NOTE | 2018-07-18 14:01 | NUR ---
1200 abx non-administered r/t IV removed for DC
--- NOTE | 2018-07-18 14:13 | NUR ---
Discharge Note: [facility] [place] [address] Discharge instructions and discharge home medications reviewed with Patient and a copy given. All questions have been answered and understanding verbalized. F/U instructions provided. Pt. verbalized understanding. The following instructions and handouts were given: COPD, COPD exacerbation, pneumonia Discontinued lines and drains: peripheral IV removed, catheter intact. Bleeding at site. Direct pressure applied, arm elevated, and bandage applied. Patient discharged to home with self-care via cab. pt. states he came to the ED with a portable O2 tank. This nurse and 2 other nurses checked pt. room. This nurse called security and ED with no luck of finding portable tank. This nurse left a message with environmental services to check lost and found. This nurse called nursing route supervisor. Nursing route supervisor stated to send pt. with [facility] portable tank and have aircraft cabin cleaner bring tank back. Pt. stated he has "a bunch of tanks at home that are all full". seasonal driver returned 02 tank to [employer].
== END 2018-07-18 13:21 | disposition home or self-care (01) | DRG 871 ==
LOC: ER 20:27 → 6 SOUTH 23:21
PROVIDERS: ADMIT Internal Medicine; ATTEND Internal Medicine
PROC: 5A09357 Assistance with Respiratory Ventilation, Less than 24 Consecutive Hours, Continuous Positive Airway Pressure (ICD-10-PCS; principal; 2018-07-12)
PROC: 5A09357 Assistance with Respiratory Ventilation, Less than 24 Consecutive Hours, Continuous Positive Airway Pressure (ICD-10-PCS; 2018-07-12)
PROC: 5A09357 Assistance with Respiratory Ventilation, Less than 24 Consecutive Hours, Continuous Positive Airway Pressure (ICD-10-PCS; 2018-07-12)
PROC: 5A09357 Assistance with Respiratory Ventilation, Less than 24 Consecutive Hours, Continuous Positive Airway Pressure (ICD-10-PCS; 2018-07-12)
PROC: 5A09357 Assistance with Respiratory Ventilation, Less than 24 Consecutive Hours, Continuous Positive Airway Pressure (ICD-10-PCS; 2018-07-12)
DX: A41.9 Sepsis, unspecified organism (principal); J18.9 Pneumonia, unspecified organism; J96.21 Acute and chronic respiratory failure with hypoxia; J96.22 Acute and chronic respiratory failure with hypercapnia; J44.0 Chronic obstructive pulmonary disease with (acute) lower respiratory infection; J44.1 Chronic obstructive pulmonary disease with (acute) exacerbation; J20.9 Acute bronchitis, unspecified; I50.9 Heart failure, unspecified; K21.9 Gastro-esophageal reflux disease without esophagitis; N40.0 Benign prostatic hyperplasia without lower urinary tract symptoms; F17.210 Nicotine dependence, cigarettes, uncomplicated; R13.10 Dysphagia, unspecified; I27.81 Cor pulmonale (chronic); Z99.81 Dependence on supplemental oxygen; Z88.5 Allergy status to narcotic agent; Z82.49 Family history of ischemic heart disease and other diseases of the circulatory system; Z71.6 Tobacco abuse counseling
CPT/HCPCS: 36415; 36600; 71045; 71250; 74230; 80053; 82805; 83605; 83880; 84145; 84484; 85025; 85610; 87040; 93005; 94640; 94660; 94760; 96374; 96375; J1650; J1940; J2543; J2920; J2930; J7040; J7613; J7620; J7626; 92610; 92611; 97110; 97116; 97530; 99285-25

== ENCOUNTER 2018-08-02 07:01 | Inpatient (IN) | payer MEDICARE ==
[~2018-08-02] VITALS: Ht 170.2 cm; Wt 62.8 kg
[2018-08-02] MEDS ORDERED: IV NORMAL SALINE 1000ML BAG 1,000 ML IV SCH (07:13)
[2018-08-02] MEDS ORDERED: IPRATRPIUM/ALBUTEROL 0.5/2.5MG 3 ML NEBU. NEB ONE (07:15)
[2018-08-02] MEDS ORDERED: methylPREDNISolone SOD SUCC PF 125 MG/2 ML VIAL. IV ONE (07:15)
[2018-08-02 07:39] LABS: BASO # 0.1 x10^3/uL (0.0-0.2); BASO % 1 % (0-3); EOS # 0.2 x10^3/uL (0.0-0.7); EOS % 2 % (0-3); HEMATOCRIT 39.8 % (39.0-53.0); HEMOGLOBIN 12.9 g/dL (13.0-17.5); LYMPH % 14 % (24-48); MEAN CORPUSCULAR HEMOGLOBIN 30 pg (25-35); MEAN CORPUSCULAR HGB CONC 32 g/dL (31-37); MEAN CORPUSCULAR VOLUME 92 fL (79-100); MONO # 0.4 x10^3/uL (0.0-1.1); MONO % 5 % (0-9); NEUT # 5.3 x10^3uL (1.8-7.7); NEUT % 78 % (31-73); PLATELET COUNT 222 x10^3/uL (140-400); RED BLOOD COUNT 4.32 x10^6/uL (4.30-5.70); RED CELL DISTRIBUTION WIDTH 14.8 % (11.5-14.5); WHITE BLOOD COUNT 6.8 x10^3/uL (4.0-11.0)
[2018-08-02 07:53] LABS: BASE EXCESS ABG 12 mmol/L (-3-3); HCO3 ABG 42 mmol/L (21-28); SAT O2 ABG 83 % (92-99)
[2018-08-02 08:02] LABS: PCO2 ABG 82 mmHg (35-46); PO2 ABG 45 mmHg (65-108)
[2018-08-02 08:02] LABS: CALCIUM 9.4 mg/dL (8.5-10.1); CREATININE 0.5 mg/dL (0.7-1.3); GFR 165.4; POTASSIUM 4.3 mmol/L (3.5-5.1)
[2018-08-02 08:04] LABS: ALBUMIN 3.6 g/dL (3.4-5.0); ALBUMIN/GLOBULIN RATIO 1.2 (1.0-1.7); TOTAL BILIRUBIN 0.4 mg/dL (0.2-1.0); TOTAL PROTEIN 6.6 g/dL (6.4-8.2)
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
[2018-08-02] MEDS ORDERED: cefTRIAXone IV Push 1 GM VIAL. IVP ONE (08:30)
--- NOTE | 2018-08-02 08:55 | RAD ---
EXAM: Chest one view. HISTORY: Shortness of breath. COMPARISON: 07/16/2018. FINDINGS: A frontal view of the chest is obtained. Hyperinflation suggests chronic obstructive pulmonary disease. Scattered interstitial opacities appear chronic and may represent scarring or interstitial lung disease. There is no pneumothorax or pleural effusion. The heart is not enlarged. IMPRESSION: 1. Chronic obstructive pulmonary disease with stable superimposed scarring versus interstitial lung disease.
[2018-08-02 09:08] VITALS: BP 119/71
--- NOTE | 2018-08-02 10:10 | PDOC1 ---
History and Physical Date of Admission Date of Admission DATE: 08/02/18 TIME: 10:05 Identification/Chief Complaint Chief Complaint Shortness of breath History of Present Illness History of Present Illness 65-year-old smoker with COPD on continuous home O2 3L, who started having respiratory symptoms about 2 days ago. He relates that between coughing, shortness of breath, sneezing and nasal dripping, symptoms were essentially getting worse and worse. This, however, does not keep him from smoking on a regular basis. His breathing even at rest has been getting worse. Cough is present. He notes his O2 fell off his face last night. Patient stated while he was sleeping his oxygen nasal tube came off and he felt more shortness of breath. EMS reported that patient had O2 sat of 70 that increased with starting oxygen to more than 90s. EMS administered DuoNeb with improved symptoms prior to arrival to ER. On arrival patient is on oxygen via nasal cannula with O2 sat of 89-90%, however he was continuing to have increased respirations and desaturations. Patient is denying any pain. He denies CP/palpitations. He denies swelling. He reports his appetite has been less- denies N/V/D. He denies urinary sxs. He reports he smokes <1ppd. He denied any fevers or chills over the past couple of weeks. Denies any sick contact. Did not have the flu vaccine. ABG 7.33/82/45 Placed on BIPAP after my eval / per pulm with rate of 24 and FI02 of 40%. EKG NSR Past Medical History Cardiovascular: No pertinent hx, Other Pulmonary: COPD, Pneumonia, Other GI: No pertinent hx Heme/Onc: No pertinent hx Hepatobiliary: No pertinent hx Psych: No pertinent hx Musculoskeletal: No pain Rheumatologic: No pertinent hx Infectious disease: No pertinent hx Renal/: No pertinent hx Endocrine: No pertinent hx Past Surgical History Past Surgical History: Other Family History Family History: Hypertension Social History Smoke: 1 pack per day ALCOHOL: none Drugs: None Current Problem List Problem List Problems Medical Problems: (1) Acute and chronic respiratory failure with hypoxia Status: Acute (2) Hypoxia Status: Acute Current Medications Current Medications Current Medications Sodium Chloride 1,000 ml @ 1,000 mls/hr Q1H IV Last administered on 08/02/18at 08:25; Start 08/02/18 at 07:13; Stop 08/02/18 at 08:12; Status DC Albuterol/ Ipratropium (Duoneb) 3 ml 1X ONCE NEB Last administered on 08/02/18at 07:30; Start 08/02/18 at 07:15; Stop 08/02/18 at 07:20; Status DC Methylprednisolone Sodium Succinate (SOLU-Medrol 125MG VIAL) 125 mg 1X ONCE IV Last administered on 08/02/18at 07:30; Start 08/02/18 at 07:15; Stop 08/02/18 at 07:20; Status DC Ceftriaxone Sodium (Rocephin) 1 gm 1X ONCE IVP ; Start 08/02/18 at 08:30; Stop 08/02/18 at 08:31; Status DC Sodium Chloride 1,000 ml @ 125 mls/hr Q8H IV ; Start 08/02/18 at 08:29; Stop 08/03/18 at 08:28 Active Scripts Active Culturelle (Lactobacillus Rhamnosus Gg) 1 Each Cap.sprink 1 Cap PO BID 14 Days Simethicone 80 Mg Tab.chew 80 Mg PO PRN AFTMEALHC PRN 14 Days Duoneb 0.5-3(2.5) Mg/3 Ml (Albuterol/Ipratropium) 3 Ml Ampul.neb 3 Ml NEB RTQID MDD 1 Reported Senna (Sennosides) 8.6 Mg Tablet 8.6 Mg PO BID NICODERM CQ 7mg (Nicotine) 1 Each Patch.td24 1 Patch TD DAILY Maalox Advanced Suspension (Mag Hydrox/Aluminum Hyd/Simeth) 355 Ml Oral.susp 355 Ml PO PRN Q6HRS PRN Protonix (Pantoprazole Sodium) 40 Mg Tablet.dr 40 Mg PO DAILY Potassium Chloride 10 Meq Capsule.er 10 Meq PO DAILY Lasix (Furosemide) 20 Mg Tablet 1 Tab PO DAILY Advair 500-50 Diskus (Fluticasone/Salmeterol) 1 Each Disk.w.dev 1 Puff IH DAILY Spiriva (Tiotropium Milton) 18 Mcg Cap.w.dev 1 Cap IH DAILY Flomax (Tamsulosin Hcl) 0.4 Mg Cap.er.24h 1 Cap PO DAILY Metoprolol Tartrate 25 Mg Tablet 12.5 Mg PO BID Advair 250-50 Diskus (Fluticasone/Salmeterol) 1 Each Disk.w.dev 1 Each IH Allergies Allergies: Coded Allergies: morphine (Verified Allergy, Intermediate, Itching, 07/15/18) ROS General: YES: Fatigue, Malaise; No: Chills, Night Sweats, Appetite, Other PSYCHOLOGICAL ROS: No: Anxiety, Behavioral Disorder, Concentration difficultie, Decreased libido, Depression, Disorientation, Hallucinations, Hostility, Irritablity, Memory difficulties, Mood Swings, Obsessive thoughts, Physical abuse, Sexual abuse, Sleep disturbances, Suicidal ideation, Other Eyes: No Blurry vision, No Decreased vision, No Double vision, No Dry eyes, No Excessive tearing, No Eye Pain, No Itchy Eyes, No Loss of vision, No Photophobia, No Scotomata, No Uses contacts, No Uses glasses, No Other HEENT: No: Heacaches, Visual Changes, Hearing change, Nasal congestion, Nasal discharge, Oral lesions, Sinus pain, Sore Throat, Epistaxis, Sneezing, Snoring, Tinnitus, Vertigo, Vocal changes, Other ALLERGY AND IMMUNOLOGY: No: Hives, Insect Bite Sensitivity, Itchy/Watery Eyes, Nasal Congestion, Post Nasal Drip, Seasonal Allergies, Other Hematological and Lymphatic: No: Bleeding Problems, Blood Clots, Blood Transfusions, Brusing, Night Sweats, Pallor, Swollen Lymph Nodes, Other ENDOCRINE: No: Breast Changes, Galactorrhea, Hair Pattern Changes, Hot Flashes, Malaise/lethargy, Mood Swings, Palpitations, Polydipsia/polyuria, Skin Changes, Temperature Intolerance, Unexpected Weight Changes, Other Breast: No New/Changing Breast Lumps, No Nipple changes, No Nipple discharge, No Other Respiratory: YES: Cough, Shortness of breath, SOB with excertion, Tachypnea, Wheezing; No: Hemoptysis, Orthopnea, Pleuritic Pain, Sputum Changes, Stridor, Other Cardiovascular: No Chest Pain, No Palpitations, No Orthopnea, No Paroxysmal Noc. Dyspnea, No Edema, No Lt Headedness, No Other Gastrointestinal: No Nausea, No Vomiting, No Abdominal Pain, No Diarrhea, No Constipation, No Melena, No Hematochezia, No Other Genitourinary: No Dysuria, No Frequency, No Incontinence, No Hematuria, No Retention, No Discharge, No Urgency, No Pain, No Flank Pain, No Other, No , No , No , No , No , No , No Musculoskeletal: No Gait Disturbance, No Joint Pain, No Joint Stiffness, No Joint Swelling, No Muscle Pain, No Muscular Weakness, No Pain In:, No Swelling In:, No Other Neurological: No Behavorial Changes, No Bowel/Bladder ControlChng, No Confusion, No Dizziness, No Gait Disturbance, No Headaches, No Impaired Coord/balance, No Memory Loss, No Numbness/Tingling, No Seizures, No Speech Problems, No Tremors, No Visual Changes, No Weakness, No Other Skin: No Dry Skin, No Eczema, No Hair Changes, No Lumps, No Mole Changes, No Mottling, No Nail Changes, No Pruritus, No Rash, No Skin Lesion Changes, No Other, No Acne Physical Exam General: Alert, Oriented X3, Cooperative, No acute distress HEENT: Atraumatic, PERRLA, EOMI, Mucous membr. moist/pink Lungs: Other (DIffuse wheezing) Heart: S1S2, RRR Abdomen: Normal bowel sounds, Soft, No tenderness, No hepatosplenomegaly, No masses Rectal Exam: not examined Extremities: No clubbing, No cyanosis, No edema, Normal pulses, No tenderness/s welling Skin: No rashes, No breakdown, No significant lesion Neuro: Normal gait, Normal speech, Strength at 5/5 X4 ext, Normal tone, Sensation intact, Cranial nerves 3-12 NL, Reflexes 2+ Psych/Mental Status: Mental status NL, Mood NL Vitals Vitals Vital Signs Date Time Temp Pulse Resp B/P (MAP) Pulse Ox O2 Delivery O2 Flow Rate FiO2 08/02/18 09:41 100 BiPAP/CPAP 08/02/18 09:08 98.4 86 20 119/71 (87) 98.4 08/02/18 07:35 4.0 Labs Labs Laboratory Tests Test 08/02/18 07:13 08/02/18 07:15 08/02/18 07:16 08/02/18 07:35 White Blood Count 6.8 x10^3/uL (4.0-11.0) Red Blood Count 4.32 x10^6/uL (4.30-5.70) Hemoglobin 12.9 g/dL (13.0-17.5) Hematocrit 39.8 % (39.0-53.0) Mean Corpuscular Volume 92 fL (79-100) Mean Corpuscular Hemoglobin 30 pg (25-35) Mean Corpuscular Hemoglobin Concent 32 g/dL (31-37) Red Cell Distribution Width 14.8 % (11.5-14.5) Platelet Count 222 x10^3/uL (140-400) Neutrophils (%) (Auto) 78 % (31-73) Lymphocytes (%) (Auto) 14 % (24-48) Monocytes (%) (Auto) 5 % (0-9) Eosinophils (%) (Auto) 2 % (0-3) Basophils (%) (Auto) 1 % (0-3) Neutrophils # (Auto) 5.3 x10^3uL (1.8-7.7) Lymphocytes # (Auto) 1.0 x10^3/uL (1.0-4.8) Monocytes # (Auto) 0.4 x10^3/uL (0.0-1.1) Eosinophils # (Auto) 0.2 x10^3/uL (0.0-0.7) Basophils # (Auto) 0.1 x10^3/uL (0.0-0.2) Lactic Acid Level 0.9 mmol/L (0.4-2.0) Sodium Level 141 mmol/L (136-145) Potassium Level 4.3 mmol/L (3.5-5.1) Chloride Level 95 mmol/L (98-107) Carbon Dioxide Level 43 mmol/L (21-32) Anion Gap 3 (6-14) Blood Urea Nitrogen 12 mg/dL (8-26) Creatinine 0.5 mg/dL (0.7-1.3) Estimated GFR (Cockcroft-Gault) 165.4 BUN/Creatinine Ratio 24 (6-20) Glucose Level 131 mg/dL (70-99) Calcium Level 9.4 mg/dL (8.5-10.1) Total Bilirubin 0.4 mg/dL (0.2-1.0) Aspartate Amino Transf (AST/SGOT) 14 U/L (15-37) Alanine Aminotransferase (ALT/SGPT) 18 U/L (16-63) Alkaline Phosphatase 105 U/L (46-116) Creatine Kinase 36 U/L (39-308) Troponin I Quantitative < 0.017 ng/mL (0.000-0.055) RN-Esp-P-Type Natriuretic Peptide 77 pg/mL (0-124) Total Protein 6.6 g/dL (6.4-8.2) Albumin 3.6 g/dL (3.4-5.0) Albumin/Globulin Ratio 1.2 (1.0-1.7) O2 Saturation 83 % (92-99) Arterial Blood pH 7.33 (7.35-7.45) Arterial Blood pCO2 at Patient Temp 82 mmHg (35-46) Arterial Blood pO2 at Patient Temp 45 mmHg (65-108) Arterial Blood HCO3 42 mmol/L (21-28) Arterial Blood Base Excess 12 mmol/L (-3-3) Laboratory Tests Test 08/02/18 07:13 08/02/18 07:15 08/02/18 07:16 08/02/18 07:35 White Blood Count 6.8 x10^3/uL (4.0-11.0) Red Blood Count 4.32 x10^6/uL (4.30-5.70) Hemoglobin 12.9 g/dL (13.0-17.5) Hematocrit 39.8 % (39.0-53.0) Mean Corpuscular Volume 92 fL (79-100) Mean Corpuscular Hemoglobin 30 pg (25-35) Mean Corpuscular Hemoglobin Concent 32 g/dL (31-37) Red Cell Distribution Width 14.8 % (11.5-14.5) Platelet Count 222 x10^3/uL (140-400) Neutrophils (%) (Auto) 78 % (31-73) Lymphocytes (%) (Auto) 14 % (24-48) Monocytes (%) (Auto) 5 % (0-9) Eosinophils (%) (Auto) 2 % (0-3) Basophils (%) (Auto) 1 % (0-3) Neutrophils # (Auto) 5.3 x10^3uL (1.8-7.7) Lymphocytes # (Auto) 1.0 x10^3/uL (1.0-4.8) Monocytes # (Auto) 0.4 x10^3/uL (0.0-1.1) Eosinophils # (Auto) 0.2 x10^3/uL (0.0-0.7) Basophils # (Auto) 0.1 x10^3/uL (0.0-0.2) Lactic Acid Level 0.9 mmol/L (0.4-2.0) Sodium Level 141 mmol/L (136-145) Potassium Level 4.3 mmol/L (3.5-5.1) Chloride Level 95 mmol/L (98-107) Carbon Dioxide Level 43 mmol/L (21-32) Anion Gap 3 (6-14) Blood Urea Nitrogen 12 mg/dL (8-26) Creatinine 0.5 mg/dL (0.7-1.3) Estimated GFR (Cockcroft-Gault) 165.4 BUN/Creatinine Ratio 24 (6-20) Glucose Level 131 mg/dL (70-99) Calcium Level 9.4 mg/dL (8.5-10.1) Total Bilirubin 0.4 mg/dL (0.2-1.0) Aspartate Amino Transf (AST/SGOT) 14 U/L (15-37) Alanine Aminotransferase (ALT/SGPT) 18 U/L (16-63) Alkaline Phosphatase 105 U/L (46-116) Creatine Kinase 36 U/L (39-308) Troponin I Quantitative < 0.017 ng/mL (0.000-0.055) FR-Sfr-T-Type Natriuretic Peptide 77 pg/mL (0-124) Total Protein 6.6 g/dL (6.4-8.2) Albumin 3.6 g/dL (3.4-5.0) Albumin/Globulin Ratio 1.2 (1.0-1.7) O2 Saturation 83 % (92-99) Arterial Blood pH 7.33 (7.35-7.45) Arterial Blood pCO2 at Patient Temp 82 mmHg (35-46) Arterial Blood pO2 at Patient Temp 45 mmHg (65-108) Arterial Blood HCO3 42 mmol/L (21-28) Arterial Blood Base Excess 12 mmol/L (-3-3) Images Images CT - 1. No acute intracranial findings. MRI is more sensitive for acute ischemia if there is persistent concern. 2. Mild to moderate atrophy and mild chronic microangiopathic white matter change. VTE Prophylaxis Ordered VTE Prophylaxis Devices: Yes VTE Pharmacological Prophylaxi: Yes Assessment/Plan Assessment/Plan A/P: [id number] respiratory failure - on BIPAP currently. Steroids, nebs, treat pneumonia. Consult pulm - rocephin + doxy. will check procalcitonin Acute exacerbation of chronic obstructive pulmonary disease - as above, nebs, steroids Tobacco dependence - counseled. Nicotine patch Murmur - systolic HTN: controlled HLD - statin FEN - renal PPX - Heparin FULL CODE Inpatient for COPD exacerbation complicated by hypoxia EVGENY ELIZABETH MD Aug 02, 2018 10:10
[2018-08-02 11:00] VITALS: BP 130/77
--- NOTE | 2018-08-02 11:17 | EKG ---
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
[2018-08-02] MEDS: IPRATRPIUM/ALBUTEROL 0.5/2.5MG 3 ML NEBU. NEB SCH ×3 (12:15→20:59)
[2018-08-02] MEDS: BUDESONIDE 0.5 MG/2 ML NEBU. NEB SCH ×2 (12:17→20:59)
[2018-08-02] MEDS: IV NORMAL SALINE 1000ML BAG 1,000 ML IV SCH ×2 (12:38→16:50)
--- NOTE | 2018-08-02 13:52 | PDOC ---
PULMONARY PROGRESS NOTES Vitals Vital Signs Date Time Temp Pulse Resp B/P (MAP) Pulse Ox O2 Delivery O2 Flow Rate FiO2 08/02/18 12:23 98 Nasal Cannula 3.0 08/02/18 11:00 98.5 90 20 130/77 (94) 98.5 General: Alert, No acute distress HEENT: Other Lungs: Other Cardiovascular: S1, S2 Abdomen: Soft, Non-tender Extremities: Other Labs Laboratory Tests Test 08/02/18 07:13 08/02/18 07:15 08/02/18 07:16 08/02/18 07:35 White Blood Count 6.8 x10^3/uL (4.0-11.0) Red Blood Count 4.32 x10^6/uL (4.30-5.70) Hemoglobin 12.9 g/dL (13.0-17.5) Hematocrit 39.8 % (39.0-53.0) Mean Corpuscular Volume 92 fL (79-100) Mean Corpuscular Hemoglobin 30 pg (25-35) Mean Corpuscular Hemoglobin Concent 32 g/dL (31-37) Red Cell Distribution Width 14.8 % (11.5-14.5) Platelet Count 222 x10^3/uL (140-400) Neutrophils (%) (Auto) 78 % (31-73) Lymphocytes (%) (Auto) 14 % (24-48) Monocytes (%) (Auto) 5 % (0-9) Eosinophils (%) (Auto) 2 % (0-3) Basophils (%) (Auto) 1 % (0-3) Neutrophils # (Auto) 5.3 x10^3uL (1.8-7.7) Lymphocytes # (Auto) 1.0 x10^3/uL (1.0-4.8) Monocytes # (Auto) 0.4 x10^3/uL (0.0-1.1) Eosinophils # (Auto) 0.2 x10^3/uL (0.0-0.7) Basophils # (Auto) 0.1 x10^3/uL (0.0-0.2) Lactic Acid Level 0.9 mmol/L (0.4-2.0) Sodium Level 141 mmol/L (136-145) Potassium Level 4.3 mmol/L (3.5-5.1) Chloride Level 95 mmol/L (98-107) Carbon Dioxide Level 43 mmol/L (21-32) Anion Gap 3 (6-14) Blood Urea Nitrogen 12 mg/dL (8-26) Creatinine 0.5 mg/dL (0.7-1.3) Estimated GFR (Cockcroft-Gault) 165.4 BUN/Creatinine Ratio 24 (6-20) Glucose Level 131 mg/dL (70-99) Calcium Level 9.4 mg/dL (8.5-10.1) Total Bilirubin 0.4 mg/dL (0.2-1.0) Aspartate Amino Transf (AST/SGOT) 14 U/L (15-37) Alanine Aminotransferase (ALT/SGPT) 18 U/L (16-63) Alkaline Phosphatase 105 U/L (46-116) Creatine Kinase 36 U/L (39-308) Troponin I Quantitative < 0.017 ng/mL (0.000-0.055) HH-Bfk-J-Type Natriuretic Peptide 77 pg/mL (0-124) Total Protein 6.6 g/dL (6.4-8.2) Albumin 3.6 g/dL (3.4-5.0) Albumin/Globulin Ratio 1.2 (1.0-1.7) O2 Saturation 83 % (92-99) Arterial Blood pH 7.33 (7.35-7.45) Arterial Blood pCO2 at Patient Temp 82 mmHg (35-46) Arterial Blood pO2 at Patient Temp 45 mmHg (65-108) Arterial Blood HCO3 42 mmol/L (21-28) Arterial Blood Base Excess 12 mmol/L (-3-3) Laboratory Tests Test 08/02/18 07:13 08/02/18 07:15 08/02/18 07:16 08/02/18 07:35 White Blood Count 6.8 x10^3/uL (4.0-11.0) Red Blood Count 4.32 x10^6/uL (4.30-5.70) Hemoglobin 12.9 g/dL (13.0-17.5) Hematocrit 39.8 % (39.0-53.0) Mean Corpuscular Volume 92 fL (79-100) Mean Corpuscular Hemoglobin 30 pg (25-35) Mean Corpuscular Hemoglobin Concent 32 g/dL (31-37) Red Cell Distribution Width 14.8 % (11.5-14.5) Platelet Count 222 x10^3/uL (140-400) Neutrophils (%) (Auto) 78 % (31-73) Lymphocytes (%) (Auto) 14 % (24-48) Monocytes (%) (Auto) 5 % (0-9) Eosinophils (%) (Auto) 2 % (0-3) Basophils (%) (Auto) 1 % (0-3) Neutrophils # (Auto) 5.3 x10^3uL (1.8-7.7) Lymphocytes # (Auto) 1.0 x10^3/uL (1.0-4.8) Monocytes # (Auto) 0.4 x10^3/uL (0.0-1.1) Eosinophils # (Auto) 0.2 x10^3/uL (0.0-0.7) Basophils # (Auto) 0.1 x10^3/uL (0.0-0.2) Lactic Acid Level 0.9 mmol/L (0.4-2.0) Sodium Level 141 mmol/L (136-145) Potassium Level 4.3 mmol/L (3.5-5.1) Chloride Level 95 mmol/L (98-107) Carbon Dioxide Level 43 mmol/L (21-32) Anion Gap 3 (6-14) Blood Urea Nitrogen 12 mg/dL (8-26) Creatinine 0.5 mg/dL (0.7-1.3) Estimated GFR (Cockcroft-Gault) 165.4 BUN/Creatinine Ratio 24 (6-20) Glucose Level 131 mg/dL (70-99) Calcium Level 9.4 mg/dL (8.5-10.1) Total Bilirubin 0.4 mg/dL (0.2-1.0) Aspartate Amino Transf (AST/SGOT) 14 U/L (15-37) Alanine Aminotransferase (ALT/SGPT) 18 U/L (16-63) Alkaline Phosphatase 105 U/L (46-116) Creatine Kinase 36 U/L (39-308) Troponin I Quantitative < 0.017 ng/mL (0.000-0.055) FF-Wjt-M-Type Natriuretic Peptide 77 pg/mL (0-124) Total Protein 6.6 g/dL (6.4-8.2) Albumin 3.6 g/dL (3.4-5.0) Albumin/Globulin Ratio 1.2 (1.0-1.7) O2 Saturation 83 % (92-99) Arterial Blood pH 7.33 (7.35-7.45) Arterial Blood pCO2 at Patient Temp 82 mmHg (35-46) Arterial Blood pO2 at Patient Temp 45 mmHg (65-108) Arterial Blood HCO3 42 mmol/L (21-28) Arterial Blood Base Excess 12 mmol/L (-3-3) Medications Active Scripts Medications Dose Route/Sig Max Daily Dose Days Date Category Culturelle (Lactobacillus Rhamnosus Gg) 1 Each Cap.sprink 1 Cap PO BID 14 05/20/18 Rx Simethicone 80 Mg Tab.chew 80 Mg PO PRN AFTMEALHC PRN 14 05/20/18 Rx Senna (Sennosides) 8.6 Mg Tablet 8.6 Mg PO BID 05/18/18 Reported NICODERM CQ 7mg (Nicotine) 1 Each Patch.td24 1 Patch TD DAILY 05/18/18 Reported Maalox Advanced Suspension (Mag Hydrox/Aluminum Hyd/Simeth) 355 Ml Oral.susp 355 Ml PO PRN Q6HRS PRN 05/18/18 Reported Duoneb 0.5-3(2.5) Mg/3 Ml (Albuterol/Ipratropium) 3 Ml Ampul.neb 3 Ml NEB RTQID MDD 1 05/10/18 Rx Protonix (Pantoprazole Sodium) 40 Mg Tablet.dr 40 Mg PO DAILY 11/18/15 Reported Potassium Chloride 10 Meq Capsule.er 10 Meq PO DAILY 11/18/15 Reported Lasix (Furosemide) 20 Mg Tablet 1 Tab PO DAILY 11/18/15 Reported Advair 500-50 Diskus (Fluticasone/Salmeterol) 1 Each Disk.w.dev 1 Puff IH DAILY 10/11/15 Reported Spiriva (Tiotropium [place]) 18 Mcg Cap.w.dev 1 Cap IH DAILY 10/11/15 Reported Flomax (Tamsulosin Hcl) 0.4 Mg Cap.er.24h 1 Cap PO DAILY 10/11/15 Reported Metoprolol Tartrate 25 Mg Tablet 12.5 Mg PO BID 10/11/15 Reported Advair 250-50 Diskus (Fluticasone/Salmeterol) 1 Each Disk.w.dev 1 Each IH 02/14/13 Reported Impression . NOTE DICTATED A/C RESP FAILURE AECOPD MARISABEL PULIDO MD Aug 02, 2018 13:52
[2018-08-02] MEDS ORDERED: ALBUTEROL SULFATE 2.5 MG/3 ML NEBU. NEB PRN (14:00)
[2018-08-02 15:00] VITALS: BP 100/70
--- NOTE | 2018-08-02 15:22 | RAD ---
EXAM: CT HEAD WITHOUT CONTRAST. HISTORY: Lower extremity weakness. TECHNIQUE: Computed tomography of the head was performed without intravenous contrast. COMPARISON: None. FINDINGS: There is no intracranial hemorrhage. Hypoattenuation within the periventricular white matter indicates mild chronic microangiopathic change. Prominence of the lateral ventricles and hemispheric sulci indicates mild to moderate atrophy. A mucus retention cyst is noted in the right maxillary sinus. The orbits are unremarkable. The temporal bones are unremarkable. The calvarium reveals no suspicious lesions. IMPRESSION: 1. No acute intracranial findings. MRI is more sensitive for acute ischemia if there is persistent concern. 2. Mild to moderate atrophy and mild chronic microangiopathic white matter change. *One or more of the following individualized dose reduction techniques were utilized for this examination: 1. Automated exposure control. 2. Adjustment of the mA and/or kV according to patient size. 3. Use of iterative reconstruction technique. Electronically signed by: Tracy Wolf MD (08/02/2018 3:14 PM) [facility]
[2018-08-02 15:51] LABS: BASE EXCESS ABG 13 mmol/L (-3-3); HCO3 ABG 43 mmol/L (21-28); PO2 ABG 78 mmHg (65-108); SAT O2 ABG 96 % (92-99)
[2018-08-02 15:53] LABS: FIO2 ABG 40; PCO2 ABG 78 mmHg (35-46)
[2018-08-02] MEDS ORDERED: ONDANSETRON PF 4 MG/2 ML VIAL. IV PRN (16:15)
[2018-08-02] MEDS ORDERED: SIMETHICONE 80 MG TAB.CHEW PO PRN (16:15)
[2018-08-02] MEDS ORDERED: ACETAMINOPHEN 325 MG TABLET. PO PRN (16:15)
[2018-08-02] MEDS: DOXYCYCLINE HYCLATE 100 MG in IV DEXTROSE 5% 100ML 100 ML IV SCH (16:49)
[2018-08-02 19:00] VITALS: BP 115/69
[2018-08-02] MEDS: METOPROLOL TART IMMED RELEASE 25 MG TABLET. PO SCH (22:00)
[2018-08-02] MEDS: LACTOBACILLUS RHAMNOSUS GG 1 CAPSULE. PO SCH (22:00)
[2018-08-02] MEDS: methylPREDNISolone SOD SUCC PF 125 MG/2 ML VIAL. IV SCH (22:00)
[2018-08-02] MEDS: guaiFENesin/CODEINE 100mg/10mg 5 ML LIQUID PO PRN (22:01)
[2018-08-02 22:44] VITALS: BP 103/72
[2018-08-02 23:35] LABS: BILIRUBIN,URINE NEGATIVE (NEG); CLARITY,URINE TURBID; COLOR,URINE YELLOW; NITRITE,URINE NEGATIVE (NEG); PH,URINE 7.5; PROTEIN,URINE NEGATIVE (NEG-TRACE)
[2018-08-02 23:39] LABS: SQUAMOUS EPITHELIAL CELL,UR FEW /LPF
[2018-08-02 23:40] LABS: AMORPHOUS SEDIMENT,UR PRESENT /HPF; BACTERIA,URINE 0 /HPF (0-FEW); RBC,URINE 0 /HPF (0-2); WBC,URINE 0 /HPF (0-4)
[2018-08-03] MEDS: IV NORMAL SALINE 1000ML BAG 1,000 ML IV SCH (00:20)
[2018-08-03] MEDS: DOXYCYCLINE HYCLATE 100 MG in IV DEXTROSE 5% 100ML 100 ML IV SCH ×3 (00:20→21:25)
--- NOTE | 2018-08-03 02:00 | CONS ---
DATE OF CONSULTATION: 08/02/2018 ATTENDING PHYSICIAN: Dr. Montgomery. REASON FOR CONSULTATION: The patient seen in pulmonary consultation at the request of Dr. Montgomery for acute on chronic hypercapnic respiratory failure, pH of 7.33, PaCO2 of 82, pO2 of 45. HISTORY OF PRESENT ILLNESS: The patient is a 67-year-old male with chronic respiratory failure, COPD, tobacco dependence, smokes approximately 3 cigarettes a day became more short of breath and confused at home. He was found to have O2 saturations of 70% by EMS. The patient was admitted, arterial blood gas was obtained revealing a pH of 7.33, PaCO2 of 82, pO2 of 45. Electrolytes were noted. BUN and creatinine were noted. White count was normal. Chest x-ray reveals some increased lung marking, possible interstitial lung disease. I was asked to see him in consultation. The patient is currently on BiPAP. He is awake, alert, following commands. Denies fever or chills. No hemoptysis. PAST MEDICAL HISTORY: 1. Chronic respiratory failure, COPD, tobacco dependence. 2. Gastroesophageal reflux. 3. Benign prostatic hypertrophy. SOCIAL HISTORY: The patient is currently not consuming any alcohol. He was an alcoholic at one-time, continues to smoke. FAMILY HISTORY: No family history of lung disorders. ALLERGIES: MORPHINE. REVIEW OF SYSTEMS: Unobtainable secondary to the patient's condition. He is currently on BiPAP. CURRENT MEDICATION: List was reviewed. Home medication list was reviewed. PHYSICAL EXAMINATION: VITAL SIGNS: Stable. O2 saturation was greater than 92%. HEENT: Eyes, the sclerae were nonicteric. NECK: Jugular venous distention was not elevated. No lymphadenopathy. CHEST: Full expansion. LUNGS: Poor airway flow with no wheezes. CARDIOVASCULAR: Regular rate and rhythm with S1, S2, no S3. ABDOMEN: Soft, nontender, nondistended. EXTREMITIES: No clubbing, cyanosis or edema. NEUROLOGIC: The patient was awake, alert, following commands. A detailed neuro exam was not performed. LABORATORY DATA: As indicated above. IMAGING: Chest x-ray was reviewed revealing increased interstitial lung markings. IMPRESSION: 1. Acute on chronic hypoxemic hypercapnic respiratory failure. 2. Acute exacerbation of chronic obstructive pulmonary disease. 3. Possible interstitial lung disease. 4. Tobacco dependence. 5. Acute nonspecific bronchitis. 6. Metabolic toxic encephalopathy, present upon admission. PLAN: 1. Continue noninvasive ventilation with BiPAP. 2. Repeat arterial blood gas. 3. Steroids and antibiotics. 4. I will review previous films, I believe the patient had a CT of the chest several months ago. We will review it and make further recommendations 5. Continue deep venous thrombosis prophylaxis. 6. Nebulized treatments. 7. Steroids. I do appreciate the privilege in sharing in the patient's care. Total of cumulative critical care time of 35 minutes. MARISABEL PULIDO MD DR: ROBERT/joshua JOB#: [id number] / [id number]
[2018-08-03 02:51] VITALS: BP 111/55
[2018-08-03 07:40] VITALS: BP 127/72
[2018-08-03] MEDS: BUDESONIDE 0.5 MG/2 ML NEBU. NEB SCH ×2 (07:40→20:33)
[2018-08-03] MEDS: IPRATRPIUM/ALBUTEROL 0.5/2.5MG 3 ML NEBU. NEB SCH ×4 (07:40→20:33)
--- NOTE | 2018-08-03 08:46 | PDOC ---
PULMONARY PROGRESS NOTES Subjective PT FEELS BETTER OFF BIPAP Vitals Vital Signs Date Time Temp Pulse Resp B/P (MAP) Pulse Ox O2 Delivery O2 Flow Rate FiO2 08/03/18 07:43 93 Nasal Cannula 3.0 08/03/18 07:40 97.8 85 22 127/72 (90) 97.8 ROS: No Nausea, No Chest Pain, No Abdominal Pain, No Increase Cough General: Alert, No acute distress Lungs: Clear, Other Cardiovascular: S1, S2 Abdomen: Soft, Non-tender Neuro Exam: Alert Extremities: No Edema, Other Skin: Warm Labs Laboratory Tests Test 08/02/18 07:13 08/02/18 07:15 08/02/18 07:16 08/02/18 07:35 White Blood Count 6.8 x10^3/uL (4.0-11.0) Red Blood Count 4.32 x10^6/uL (4.30-5.70) Hemoglobin 12.9 g/dL (13.0-17.5) Hematocrit 39.8 % (39.0-53.0) Mean Corpuscular Volume 92 fL (79-100) Mean Corpuscular Hemoglobin 30 pg (25-35) Mean Corpuscular Hemoglobin Concent 32 g/dL (31-37) Red Cell Distribution Width 14.8 % (11.5-14.5) Platelet Count 222 x10^3/uL (140-400) Neutrophils (%) (Auto) 78 % (31-73) Lymphocytes (%) (Auto) 14 % (24-48) Monocytes (%) (Auto) 5 % (0-9) Eosinophils (%) (Auto) 2 % (0-3) Basophils (%) (Auto) 1 % (0-3) Neutrophils # (Auto) 5.3 x10^3uL (1.8-7.7) Lymphocytes # (Auto) 1.0 x10^3/uL (1.0-4.8) Monocytes # (Auto) 0.4 x10^3/uL (0.0-1.1) Eosinophils # (Auto) 0.2 x10^3/uL (0.0-0.7) Basophils # (Auto) 0.1 x10^3/uL (0.0-0.2) Lactic Acid Level 0.9 mmol/L (0.4-2.0) Sodium Level 141 mmol/L (136-145) Potassium Level 4.3 mmol/L (3.5-5.1) Chloride Level 95 mmol/L (98-107) Carbon Dioxide Level 43 mmol/L (21-32) Anion Gap 3 (6-14) Blood Urea Nitrogen 12 mg/dL (8-26) Creatinine 0.5 mg/dL (0.7-1.3) Estimated GFR (Cockcroft-Gault) 165.4 BUN/Creatinine Ratio 24 (6-20) Glucose Level 131 mg/dL (70-99) Calcium Level 9.4 mg/dL (8.5-10.1) Total Bilirubin 0.4 mg/dL (0.2-1.0) Aspartate Amino Transf (AST/SGOT) 14 U/L (15-37) Alanine Aminotransferase (ALT/SGPT) 18 U/L (16-63) Alkaline Phosphatase 105 U/L (46-116) Creatine Kinase 36 U/L (39-308) Troponin I Quantitative < 0.017 ng/mL (0.000-0.055) YI-Axe-K-Type Natriuretic Peptide 77 pg/mL (0-124) Total Protein 6.6 g/dL (6.4-8.2) Albumin 3.6 g/dL (3.4-5.0) Albumin/Globulin Ratio 1.2 (1.0-1.7) Procalcitonin < 0.10 ng/mL (0.00-0.10) O2 Saturation 83 % (92-99) Arterial Blood pH 7.33 (7.35-7.45) Arterial Blood pCO2 at Patient Temp 82 mmHg (35-46) Arterial Blood pO2 at Patient Temp 45 mmHg (65-108) Arterial Blood HCO3 42 mmol/L (21-28) Arterial Blood Base Excess 12 mmol/L (-3-3) Test 08/02/18 15:40 08/02/18 22:30 O2 Saturation 96 % (92-99) Arterial Blood pH 7.36 (7.35-7.45) Arterial Blood pCO2 at Patient Temp 78 mmHg (35-46) Arterial Blood pO2 at Patient Temp 78 mmHg (65-108) Arterial Blood HCO3 43 mmol/L (21-28) Arterial Blood Base Excess 13 mmol/L (-3-3) FiO2 40 Urine Collection Type Unknown Urine Color Yellow Urine Clarity Turbid Urine pH 7.5 Urine Specific [place] >=1.030 Urine Protein Negative mg/dL (NEG-TRACE) Urine Glucose (UA) >=1000 mg/dL (NEG) Urine Ketones (Stick) Negative mg/dL (NEG) Urine Blood Negative (NEG) Urine Nitrite Negative (NEG) Urine Bilirubin Negative (NEG) Urine Urobilinogen Dipstick 1.0 mg/dL (0.2 mg/dL) Urine Leukocyte Esterase Negative (NEG) Urine RBC 0 /HPF (0-2) Urine WBC 0 /HPF (0-4) Urine Squamous Epithelial Cells Few /LPF Urine Amorphous Sediment Present /HPF Urine Bacteria 0 /HPF (0-FEW) Urine Mucus Slight /LPF Laboratory Tests Test 08/02/18 15:40 08/02/18 22:30 O2 Saturation 96 % (92-99) Arterial Blood pH 7.36 (7.35-7.45) Arterial Blood pCO2 at Patient Temp 78 mmHg (35-46) Arterial Blood pO2 at Patient Temp 78 mmHg (65-108) Arterial Blood HCO3 43 mmol/L (21-28) Arterial Blood Base Excess 13 mmol/L (-3-3) FiO2 40 Urine Collection Type Unknown Urine Color Yellow Urine Clarity Turbid Urine pH 7.5 Urine Specific [place] >=1.030 Urine Protein Negative mg/dL (NEG-TRACE) Urine Glucose (UA) >=1000 mg/dL (NEG) Urine Ketones (Stick) Negative mg/dL (NEG) Urine Blood Negative (NEG) Urine Nitrite Negative (NEG) Urine Bilirubin Negative (NEG) Urine Urobilinogen Dipstick 1.0 mg/dL (0.2 mg/dL) Urine Leukocyte Esterase Negative (NEG) Urine RBC 0 /HPF (0-2) Urine WBC 0 /HPF (0-4) Urine Squamous Epithelial Cells Few /LPF Urine Amorphous Sediment Present /HPF Urine Bacteria 0 /HPF (0-FEW) Urine Mucus Slight /LPF Medications Active Scripts Medications Dose Route/Sig Max Daily Dose Days Date Category Culturelle (Lactobacillus Rhamnosus Gg) 1 Each Cap.sprink 1 Cap PO BID 14 05/20/18 Rx Simethicone 80 Mg Tab.chew 80 Mg PO PRN AFTMEALHC PRN 14 05/20/18 Rx Senna (Sennosides) 8.6 Mg Tablet 8.6 Mg PO BID 05/18/18 Reported NICODERM CQ 7mg (Nicotine) 1 Each Patch.td24 1 Patch TD DAILY 05/18/18 Reported Maalox Advanced Suspension (Mag Hydrox/Aluminum Hyd/Simeth) 355 Ml Oral.susp 355 Ml PO PRN Q6HRS PRN 05/18/18 Reported Duoneb 0.5-3(2.5) Mg/3 Ml (Albuterol/Ipratropium) 3 Ml Ampul.neb 3 Ml NEB RTQID MDD 1 05/10/18 Rx Protonix (Pantoprazole Sodium) 40 Mg Tablet.dr 40 Mg PO DAILY 11/18/15 Reported Potassium Chloride 10 Meq Capsule.er 10 Meq PO DAILY 11/18/15 Reported Lasix (Furosemide) 20 Mg Tablet 1 Tab PO DAILY 11/18/15 Reported Advair 500-50 Diskus (Fluticasone/Salmeterol) 1 Each Disk.w.dev 1 Puff IH DAILY 10/11/15 Reported Spiriva (Tiotropium [place]) 18 Mcg Cap.w.dev 1 Cap IH DAILY 10/11/15 Reported Flomax (Tamsulosin Hcl) 0.4 Mg Cap.er.24h 1 Cap PO DAILY 10/11/15 Reported Metoprolol Tartrate 25 Mg Tablet 12.5 Mg PO BID 10/11/15 Reported Advair 250-50 Diskus (Fluticasone/Salmeterol) 1 Each Disk.w.dev 1 Each IH 02/14/13 Reported Impression . IMPRESSION: 1. Acute on chronic hypoxemic hypercapnic respiratory failure. 2. Acute exacerbation of chronic obstructive pulmonary disease. 3. Possible interstitial lung disease. 4. Tobacco dependence. 5. Acute nonspecific bronchitis. 6. Metabolic toxic encephalopathy, present upon admission. ct JUNE 2018 IMPRESSION: 1. There is some increased right lower lobe infiltrate such as near the lung base but also of the superior right lower lobe and right upper lobe. Findings could be on a postinfectious basis although underlying neoplastic etiology again not excludable. Assuming there are clinical findings of infection, short-term follow-up after treatment within 2 months is advised. If there are not findings suggestive of infection, PET CT or biopsy should be considered. 2. There is again fairly severe emphysema. 3. There is some coronary calcification. 4. There is stable mild mediastinal lymphadenopathy. Plan . REPEAT CT IN BIPAP ANTIBX STERDOIS ABG SISILLO,SABATO MD Aug 03, 2018 08:46
--- NOTE | 2018-08-03 08:50 | NUR ---
SW following pt for anticipated dc needs. Chart reviewed. Pt lives at home and has home 02 with [employer]. No SW needs noted at this time. Will continue to evaluate dc needs.
[2018-08-03] MEDS: NICOTINE 7MG PATCH. TD SCH (09:14)
[2018-08-03] MEDS: FUROSEMIDE 20 MG TABLET PO SCH (09:15)
[2018-08-03] MEDS: methylPREDNISolone SOD SUCC PF 125 MG/2 ML VIAL. IV SCH ×2 (09:15→21:25)
[2018-08-03] MEDS: METOPROLOL TART IMMED RELEASE 25 MG TABLET. PO SCH ×2 (09:15→21:28)
[2018-08-03] MEDS: PANTOPRAZOLE 40 MG TABLET.DR. PO SCH (09:15)
[2018-08-03] MEDS: TAMSULOSIN 0.4 MG CAP.ER.24H. PO SCH (09:15)
[2018-08-03] MEDS: POTASSIUM CHLORIDE 10 MEQ TABLET.ER. PO SCH (09:16)
[2018-08-03] MEDS: LACTOBACILLUS RHAMNOSUS GG 1 CAPSULE. PO SCH ×2 (09:19→21:26)
[2018-08-03] MEDS: guaiFENesin/CODEINE 100mg/10mg 5 ML LIQUID PO PRN ×2 (09:19→21:41)
[2018-08-03] MEDS: FLUTICASONE 50MCG/NASAL SPRAY 16GM BOTTLE. NS SCH (10:36)
[2018-08-03 11:03] VITALS: BP 132/75
--- NOTE | 2018-08-03 11:29 | PDOC ---
[employer] PROGRESS NOTE Chief Complaint Chief Complaint COPD Pneumonia Respiratory failure Bronchitis History of Present Illness History of Present Illness The patient seen and examined Discussed with his RN He is in mild respiratory distress on O2 per nasal cannula States he wants to quit smoking Vitals Vitals Vital Signs Date Time Temp Pulse Resp B/P (MAP) Pulse Ox O2 Delivery O2 Flow Rate FiO2 08/03/18 11:03 98.0 98 22 132/75 (94) 86 Nasal Cannula 3.0 98.0 Physical Exam General: Alert, Oriented X3, Cooperative, moderate distress Heart: Regular rate, Normal S1, Normal S2 Lungs: Wheezing, Crackles, Other Abdomen: Normal bowel sounds, Soft, No tenderness, No hepatosplenomegaly, No masses Extremities: No clubbing, No cyanosis, No edema, Normal pulses, No tenderness/swelling Skin: No rashes, No breakdown, No significant lesion Labs Labs: Laboratory Tests Test 08/02/18 15:40 08/02/18 22:30 O2 Saturation 96 % (92-99) Arterial Blood pH 7.36 (7.35-7.45) Arterial Blood pCO2 at Patient Temp 78 mmHg (35-46) Arterial Blood pO2 at Patient Temp 78 mmHg (65-108) Arterial Blood HCO3 43 mmol/L (21-28) Arterial Blood Base Excess 13 mmol/L (-3-3) FiO2 40 Urine Collection Type Unknown Urine Color Yellow Urine Clarity Turbid Urine pH 7.5 Urine Specific [place] >=1.030 Urine Protein Negative mg/dL (NEG-TRACE) Urine Glucose (UA) >=1000 mg/dL (NEG) Urine Ketones (Stick) Negative mg/dL (NEG) Urine Blood Negative (NEG) Urine Nitrite Negative (NEG) Urine Bilirubin Negative (NEG) Urine Urobilinogen Dipstick 1.0 mg/dL (0.2 mg/dL) Urine Leukocyte Esterase Negative (NEG) Urine RBC 0 /HPF (0-2) Urine WBC 0 /HPF (0-4) Urine Squamous Epithelial Cells Few /LPF Urine Amorphous Sediment Present /HPF Urine Bacteria 0 /HPF (0-FEW) Urine Mucus Slight /LPF Assessment and Plan Assessmemt and Plan Problems Medical Problems: (1) Acute and chronic respiratory failure with hypoxia Status: Acute (2) CO2 retention Status: Acute (3) Hypochloremia Status: Acute (4) Hypoxia Status: Acute [id number] respiratory failure - on BIPAP currently. Steroids, nebs, treat pneumonia. Consult pulm - rocephin + doxy. will check procalcitonin Acute exacerbation of chronic obstructive pulmonary disease - as above, nebs, steroids Tobacco dependence - counseled. Nicotine patch Murmur - systolic HTN: controlled HLD - statin Comment Review of Relevant I have reviewed the following items zaire (where applicable) has been applied. Labs Laboratory Tests Test 08/02/18 07:13 08/02/18 07:15 08/02/18 07:16 08/02/18 07:35 White Blood Count 6.8 x10^3/uL (4.0-11.0) Red Blood Count 4.32 x10^6/uL (4.30-5.70) Hemoglobin 12.9 g/dL (13.0-17.5) Hematocrit 39.8 % (39.0-53.0) Mean Corpuscular Volume 92 fL (79-100) Mean Corpuscular Hemoglobin 30 pg (25-35) Mean Corpuscular Hemoglobin Concent 32 g/dL (31-37) Red Cell Distribution Width 14.8 % (11.5-14.5) Platelet Count 222 x10^3/uL (140-400) Neutrophils (%) (Auto) 78 % (31-73) Lymphocytes (%) (Auto) 14 % (24-48) Monocytes (%) (Auto) 5 % (0-9) Eosinophils (%) (Auto) 2 % (0-3) Basophils (%) (Auto) 1 % (0-3) Neutrophils # (Auto) 5.3 x10^3uL (1.8-7.7) Lymphocytes # (Auto) 1.0 x10^3/uL (1.0-4.8) Monocytes # (Auto) 0.4 x10^3/uL (0.0-1.1) Eosinophils # (Auto) 0.2 x10^3/uL (0.0-0.7) Basophils # (Auto) 0.1 x10^3/uL (0.0-0.2) Lactic Acid Level 0.9 mmol/L (0.4-2.0) Sodium Level 141 mmol/L (136-145) Potassium Level 4.3 mmol/L (3.5-5.1) Chloride Level 95 mmol/L (98-107) Carbon Dioxide Level 43 mmol/L (21-32) Anion Gap 3 (6-14) Blood Urea Nitrogen 12 mg/dL (8-26) Creatinine 0.5 mg/dL (0.7-1.3) Estimated GFR (Cockcroft-Gault) 165.4 BUN/Creatinine Ratio 24 (6-20) Glucose Level 131 mg/dL (70-99) Calcium Level 9.4 mg/dL (8.5-10.1) Total Bilirubin 0.4 mg/dL (0.2-1.0) Aspartate Amino Transf (AST/SGOT) 14 U/L (15-37) Alanine Aminotransferase (ALT/SGPT) 18 U/L (16-63) Alkaline Phosphatase 105 U/L (46-116) Creatine Kinase 36 U/L (39-308) Troponin I Quantitative < 0.017 ng/mL (0.000-0.055) ZO-Sqm-L-Type Natriuretic Peptide 77 pg/mL (0-124) Total Protein 6.6 g/dL (6.4-8.2) Albumin 3.6 g/dL (3.4-5.0) Albumin/Globulin Ratio 1.2 (1.0-1.7) Procalcitonin < 0.10 ng/mL (0.00-0.10) O2 Saturation 83 % (92-99) Arterial Blood pH 7.33 (7.35-7.45) Arterial Blood pCO2 at Patient Temp 82 mmHg (35-46) Arterial Blood pO2 at Patient Temp 45 mmHg (65-108) Arterial Blood HCO3 42 mmol/L (21-28) Arterial Blood Base Excess 12 mmol/L (-3-3) Test 08/02/18 15:40 08/02/18 22:30 O2 Saturation 96 % (92-99) Arterial Blood pH 7.36 (7.35-7.45) Arterial Blood pCO2 at Patient Temp 78 mmHg (35-46) Arterial Blood pO2 at Patient Temp 78 mmHg (65-108) Arterial Blood HCO3 43 mmol/L (21-28) Arterial Blood Base Excess 13 mmol/L (-3-3) FiO2 40 Urine Collection Type Unknown Urine Color Yellow Urine Clarity Turbid Urine pH 7.5 Urine Specific [place] >=1.030 Urine Protein Negative mg/dL (NEG-TRACE) Urine Glucose (UA) >=1000 mg/dL (NEG) Urine Ketones (Stick) Negative mg/dL (NEG) Urine Blood Negative (NEG) Urine Nitrite Negative (NEG) Urine Bilirubin Negative (NEG) Urine Urobilinogen Dipstick 1.0 mg/dL (0.2 mg/dL) Urine Leukocyte Esterase Negative (NEG) Urine RBC 0 /HPF (0-2) Urine WBC 0 /HPF (0-4) Urine Squamous Epithelial Cells Few /LPF Urine Amorphous Sediment Present /HPF Urine Bacteria 0 /HPF (0-FEW) Urine Mucus Slight /LPF Laboratory Tests Test 08/02/18 15:40 08/02/18 22:30 O2 Saturation 96 % (92-99) Arterial Blood pH 7.36 (7.35-7.45) Arterial Blood pCO2 at Patient Temp 78 mmHg (35-46) Arterial Blood pO2 at Patient Temp 78 mmHg (65-108) Arterial Blood HCO3 43 mmol/L (21-28) Arterial Blood Base Excess 13 mmol/L (-3-3) FiO2 40 Urine Collection Type Unknown Urine Color Yellow Urine Clarity Turbid Urine pH 7.5 Urine Specific [place] >=1.030 Urine Protein Negative mg/dL (NEG-TRACE) Urine Glucose (UA) >=1000 mg/dL (NEG) Urine Ketones (Stick) Negative mg/dL (NEG) Urine Blood Negative (NEG) Urine Nitrite Negative (NEG) Urine Bilirubin Negative (NEG) Urine Urobilinogen Dipstick 1.0 mg/dL (0.2 mg/dL) Urine Leukocyte Esterase Negative (NEG) Urine RBC 0 /HPF (0-2) Urine WBC 0 /HPF (0-4) Urine Squamous Epithelial Cells Few /LPF Urine Amorphous Sediment Present /HPF Urine Bacteria 0 /HPF (0-FEW) Urine Mucus Slight /LPF Microbiology 08/02/18 Blood Culture - Preliminary, Resulted NO GROWTH AFTER 1 DAY Medications Current Medications Sodium Chloride 1,000 ml @ 1,000 mls/hr Q1H IV Last administered on 08/02/18at 08:25; Start 08/02/18 at 07:13; Stop 08/02/18 at 08:12; Status DC Albuterol/ Ipratropium (Duoneb) 3 ml 1X ONCE NEB Last administered on 08/02/18at 07:30; Start 08/02/18 at 07:15; Stop 08/02/18 at 07:20; Status DC Methylprednisolone Sodium Succinate (SOLU-Medrol 125MG VIAL) 125 mg 1X ONCE IV Last administered on 08/02/18 07:30; Start 08/02/18 at 07:15; Stop 08/02/18 at 07:20; Status DC Ceftriaxone Sodium (Rocephin) 1 gm 1X ONCE IVP Last administered on 08/02/18at 12:25; Start 08/02/18 at 08:30; Stop 08/02/18 at 08:31; Status DC Sodium Chloride 1,000 ml @ 125 mls/hr Q8H IV Last administered on 08/03/18at 00:20; Start 08/02/18 at 08:29; Stop 08/03/18 at 08:28; Status DC Albuterol/ Ipratropium (Duoneb) 3 ml RTQID NEB Last administered on 08/03/18 07:40; Start 08/02/18 at 12:00 Budesonide (Pulmicort) 0.5 mg RTBID NEB Last administered on 08/03/18 07:40; Start 08/02/18 at 12:00 Doxycycline Hyclate 100 mg/ Dextrose 100 ml @ 50 mls/hr Q12HR IV Last administered on 08/03/18 09:14; Start 08/02/18 at 14:30 Enoxaparin Sodium (Lovenox 40mg Syringe) 40 mg DAILY SQ ; Start 08/03/18 at 14:30 Albuterol Sulfate (Ventolin Neb Soln) 2.5 mg PRN Q2HR PRN NEB DYSPNEA; Start 08/02/18 at 14:00 Methylprednisolone Sodium Succinate (SOLU-Medrol 125MG VIAL) 60 mg BID IV Last administered on 08/03/18 09:15; Start 08/02/18 at 21:00 Furosemide (Lasix) 20 mg DAILY PO Last administered on 08/03/18 09:15; Start 08/03/18 at 09:00 Lactobacillus Rhamnosus (Culturelle) 1 cap BID PO Last administered on 08/03/18 09:19; Start 08/02/18 at 21:00 Metoprolol Tartrate (Lopressor) 12.5 mg BID PO Last administered on 08/03/18 09:15; Start 08/02/18 at 21:00 Pantoprazole Sodium (Protonix) 40 mg DAILYAC PO Last administered on 08/03/18 09:15; Start 08/03/18 at 07:30 Potassium Chloride (Klor-Con) 10 meq DAILY PO Last administered on 08/03/18at 09:16; Start 08/03/18 at 09:00 Simethicone (Gas-X) 80 mg PRN AFTMEALHC PRN PO GAS / BLOATING; Start 08/02/18 at 16:15 Tamsulosin HCl (Flomax) 0.4 mg DAILY PO Last administered on 08/03/18at 09:15; Start 08/03/18 at 09:00 Nicotine (Nicoderm Cq 7mg) 1 patch DAILY TD Last administered on 08/03/18at 09:14; Start 08/03/18 at 09:00 Ondansetron HCl (Zofran) 4 mg PRN Q6HRS PRN IV NAUSEA/VOMITING; Start 08/02/18 at 16:15 Acetaminophen (Tylenol) 650 mg PRN Q6HRS PRN PO FEVER; Start 08/02/18 at 16:15 Guaifenesin/ Codeine Phosphate (Robitussin Ac) 5 ml PRN Q6HRS PRN PO COUGH Last administered on 08/03/18 09:19; Start 08/02/18 at 19:00 Fluticasone Propionate (Flonase) 2 spray DAILY NS Last administered on 08/03/18at 10:36; Start 08/03/18 at 11:00 Active Scripts Active Culturelle (Lactobacillus Rhamnosus Gg) 1 Each Cap.sprink 1 Cap PO BID 14 Days Simethicone 80 Mg Tab.chew 80 Mg PO PRN AFTMEALHC PRN 14 Days Duoneb 0.5-3(2.5) Mg/3 Ml (Albuterol/Ipratropium) 3 Ml Ampul.neb 3 Ml NEB RTQID MDD 1 Reported Senna (Sennosides) 8.6 Mg Tablet 8.6 Mg PO BID NICODERM CQ 7mg (Nicotine) 1 Each Patch.td24 1 Patch TD DAILY Maalox Advanced Suspension (Mag Hydrox/Aluminum Hyd/Simeth) 355 Ml Oral.susp 355 Ml PO PRN Q6HRS PRN Protonix (Pantoprazole Sodium) 40 Mg Tablet.dr 40 Mg PO DAILY Potassium Chloride 10 Meq Capsule.er 10 Meq PO DAILY Lasix (Furosemide) 20 Mg Tablet 1 Tab PO DAILY Advair 500-50 Diskus (Fluticasone/Salmeterol) 1 Each Disk.w.dev 1 Puff IH DAILY Spiriva (Tiotropium [place]) 18 Mcg Cap.w.dev 1 Cap IH DAILY Flomax (Tamsulosin Hcl) 0.4 Mg Cap.er.24h 1 Cap PO DAILY Metoprolol Tartrate 25 Mg Tablet 12.5 Mg PO BID Advair 250-50 Diskus (Fluticasone/Salmeterol) 1 Each Disk.w.dev 1 Each IH Vitals/I & O Vital Sign - Last 24 Hours 08/02/18 08/02/18 08/02/18 08/02/18 12:23 15:00 15:43 19:00 Temp 99.0 98.4 99.0 98.4 Pulse 100 110 Resp 20 20 B/P (MAP) 100/70 (80) 115/69 (84) Pulse Ox 98 97 94 90 O2 Delivery Nasal Cannula BiPAP/CPAP BiPAP/CPAP Nasal Cannula O2 Flow Rate 3.0 3.0 08/02/18 08/02/18 08/02/18 08/02/18 20:10 21:04 21:07 22:00 Pulse 110 B/P (MAP) 115/69 Pulse Ox 83 95 O2 Delivery Nasal Cannula Nasal Cannula BiPAP/CPAP O2 Flow Rate 3.0 3.0 08/02/18 08/02/18 08/02/18 08/03/18 22:43 22:44 23:45 02:51 Temp 98.4 98.1 98.4 98.1 Pulse 105 76 Resp 18 18 B/P (MAP) 103/72 (82) 111/55 (73) Pulse Ox 91 93 O2 Delivery Nasal Cannula Nasal Cannula BiPAP/CPAP Nasal Cannula O2 Flow Rate 3.0 3.0 3.0 08/03/18 08/03/18 08/03/18 08/03/18 07:40 07:43 08:00 09:15 Temp 97.8 97.8 Pulse 85 85 Resp 22 B/P (MAP) 127/72 (90) 127/72 Pulse Ox 93 93 O2 Delivery Nasal Cannula Nasal Cannula Nasal Cannula O2 Flow Rate 3.0 3.0 3.0 08/03/18 11:03 Temp 98.0 98.0 Pulse 98 Resp 22 B/P (MAP) 132/75 (94) Pulse Ox 86 O2 Delivery Nasal Cannula O2 Flow Rate 3.0 Intake and Output 08/02/18 08/02/18 08/03/18 15:00 23:00 07:00 Intake Total 100 ml 300 ml Output Total 125 ml 200 ml Balance -25 ml 300 ml -200 ml ANÍBAL BAUTISTA III DO Aug 03, 2018 11:29
[2018-08-03 13:29] LABS: BASE EXCESS ABG 14 mmol/L (-3-3); HCO3 ABG 43 mmol/L (21-28); PO2 ABG 52 mmHg (65-108); SAT O2 ABG 87 % (92-99)
[2018-08-03 13:33] LABS: PCO2 ABG 74 mmHg (35-46)
[2018-08-03] MEDS: ENOXAPARIN 40 MG/0.4 ML SYRINGE. SQ SCH (15:24)
[2018-08-03 15:25] VITALS: BP 147/83
[2018-08-03] MEDS ORDERED: MAGNESIUM CITRATE 296 ML SOLUTION. PO PRN (16:15)
[2018-08-03 19:47] VITALS: BP 128/75
[2018-08-03] MEDS: POLYETHYLENE GLYCOL 3350 17 GM PACKET. PO SCH (21:00)
[2018-08-03 23:38] VITALS: BP 131/75
[2018-08-04 03:57] VITALS: BP 131/74
[2018-08-04 07:00] VITALS: BP 131/73
[2018-08-04] MEDS: BUDESONIDE 0.5 MG/2 ML NEBU. NEB SCH ×2 (07:47→21:15)
[2018-08-04] MEDS: IPRATRPIUM/ALBUTEROL 0.5/2.5MG 3 ML NEBU. NEB SCH ×4 (07:47→21:15)
--- NOTE | 2018-08-04 08:46 | PDOC ---
PULMONARY PROGRESS NOTES Subjective PT FEELS BETTER. sitting up in the chair. back on nasal cannula oxygen Vitals Vital Signs Date Time Temp Pulse Resp B/P (MAP) Pulse Ox O2 Delivery O2 Flow Rate FiO2 08/04/18 07:49 94 Nasal Cannula 3.0 08/04/18 07:00 97.8 93 16 131/73 (92) 97.8 ROS: No Nausea, No Chest Pain, No Abdominal Pain, No Increase Cough General: Alert, No acute distress Lungs: Clear, Other Cardiovascular: S1, S2 Abdomen: Soft, Non-tender Neuro Exam: Alert Extremities: No Edema, Other Skin: Warm Labs Laboratory Tests Test 08/02/18 15:40 08/02/18 22:30 08/03/18 13:20 O2 Saturation 96 % (92-99) 87 % (92-99) Arterial Blood pH 7.36 (7.35-7.45) 7.38 (7.35-7.45) Arterial Blood pCO2 at Patient Temp 78 mmHg (35-46) 74 mmHg (35-46) Arterial Blood pO2 at Patient Temp 78 mmHg (65-108) 52 mmHg (65-108) Arterial Blood HCO3 43 mmol/L (21-28) 43 mmol/L (21-28) Arterial Blood Base Excess 13 mmol/L (-3-3) 14 mmol/L (-3-3) FiO2 40 2.5 lpm nc Urine Collection Type Unknown Urine Color Yellow Urine Clarity Turbid Urine pH 7.5 Urine Specific [place] >=1.030 Urine Protein Negative mg/dL (NEG-TRACE) Urine Glucose (UA) >=1000 mg/dL (NEG) Urine Ketones (Stick) Negative mg/dL (NEG) Urine Blood Negative (NEG) Urine Nitrite Negative (NEG) Urine Bilirubin Negative (NEG) Urine Urobilinogen Dipstick 1.0 mg/dL (0.2 mg/dL) Urine Leukocyte Esterase Negative (NEG) Urine RBC 0 /HPF (0-2) Urine WBC 0 /HPF (0-4) Urine Squamous Epithelial Cells Few /LPF Urine Amorphous Sediment Present /HPF Urine Bacteria 0 /HPF (0-FEW) Urine Mucus Slight /LPF Laboratory Tests Test 08/03/18 13:20 O2 Saturation 87 % (92-99) Arterial Blood pH 7.38 (7.35-7.45) Arterial Blood pCO2 at Patient Temp 74 mmHg (35-46) Arterial Blood pO2 at Patient Temp 52 mmHg (65-108) Arterial Blood HCO3 43 mmol/L (21-28) Arterial Blood Base Excess 14 mmol/L (-3-3) FiO2 2.5 lpm nc Medications Active Scripts Medications Dose Route/Sig Max Daily Dose Days Date Category Culturelle (Lactobacillus Rhamnosus Gg) 1 Each Cap.sprink 1 Cap PO BID 14 05/20/18 Rx Simethicone 80 Mg Tab.chew 80 Mg PO PRN AFTMEALHC PRN 14 05/20/18 Rx Senna (Sennosides) 8.6 Mg Tablet 8.6 Mg PO BID 05/18/18 Reported NICODERM CQ 7mg (Nicotine) 1 Each Patch.td24 1 Patch TD DAILY 05/18/18 Reported Maalox Advanced Suspension (Mag Hydrox/Aluminum Hyd/Simeth) 355 Ml Oral.susp 355 Ml PO PRN Q6HRS PRN 05/18/18 Reported Duoneb 0.5-3(2.5) Mg/3 Ml (Albuterol/Ipratropium) 3 Ml Ampul.neb 3 Ml NEB RTQID MDD 1 05/10/18 Rx Protonix (Pantoprazole Sodium) 40 Mg Tablet.dr 40 Mg PO DAILY 11/18/15 Reported Potassium Chloride 10 Meq Capsule.er 10 Meq PO DAILY 11/18/15 Reported Lasix (Furosemide) 20 Mg Tablet 1 Tab PO DAILY 11/18/15 Reported Advair 500-50 Diskus (Fluticasone/Salmeterol) 1 Each Disk.w.dev 1 Puff IH DAILY 10/11/15 Reported Spiriva (Tiotropium [place]) 18 Mcg Cap.w.dev 1 Cap IH DAILY 10/11/15 Reported Flomax (Tamsulosin Hcl) 0.4 Mg Cap.er.24h 1 Cap PO DAILY 10/11/15 Reported Metoprolol Tartrate 25 Mg Tablet 12.5 Mg PO BID 10/11/15 Reported Advair 250-50 Diskus (Fluticasone/Salmeterol) 1 Each Disk.w.dev 1 Each IH 02/14/13 Reported Impression . IMPRESSION: 1. Acute on chronic hypoxemic hypercapnic respiratory failure. 2. Acute exacerbation of chronic obstructive pulmonary disease. 3. Possible interstitial lung disease. 4. Tobacco dependence. 5. Acute nonspecific bronchitis. 6. Metabolic toxic encephalopathy, present upon admission. ct JUNE 2018 IMPRESSION: 1. There is some increased right lower lobe infiltrate such as near the lung base but also of the superior right lower lobe and right upper lobe. Findings could be on a postinfectious basis although underlying neoplastic etiology again not excludable. Assuming there are clinical findings of infection, short-term follow-up after treatment within 2 months is advised. If there are not findings suggestive of infection, PET CT or biopsy should be considered. 2. There is again fairly severe emphysema. 3. There is some coronary calcification. 4. There is stable mild mediastinal lymphadenopathy. Plan . will have health and social care teacher check to see if patient qualifies for a noninvasive ventilator at home to prevent readmissions, and acute cor pulmonale MARISABEL PULIDO MD Aug 04, 2018 08:46
[2018-08-04] MEDS: guaiFENesin/CODEINE 100mg/10mg 5 ML LIQUID PO PRN ×2 (08:47→16:49)
[2018-08-04] MEDS: NICOTINE 7MG PATCH. TD SCH (08:47)
[2018-08-04] MEDS: methylPREDNISolone SOD SUCC PF 125 MG/2 ML VIAL. IV SCH ×2 (08:48→20:57)
[2018-08-04] MEDS: TAMSULOSIN 0.4 MG CAP.ER.24H. PO SCH (08:48)
[2018-08-04] MEDS: POLYETHYLENE GLYCOL 3350 17 GM PACKET. PO SCH ×2 (08:48→21:00)
[2018-08-04] MEDS: ENOXAPARIN 40 MG/0.4 ML SYRINGE. SQ SCH (08:48)
[2018-08-04] MEDS: FUROSEMIDE 20 MG TABLET PO SCH (08:48)
[2018-08-04] MEDS: PANTOPRAZOLE 40 MG TABLET.DR. PO SCH (08:48)
[2018-08-04] MEDS: DOXYCYCLINE HYCLATE 100 MG in IV DEXTROSE 5% 100ML 100 ML IV SCH ×2 (08:49→20:57)
[2018-08-04] MEDS: LACTOBACILLUS RHAMNOSUS GG 1 CAPSULE. PO SCH ×2 (08:49→20:56)
[2018-08-04] MEDS: POTASSIUM CHLORIDE 10 MEQ TABLET.ER. PO SCH (08:49)
[2018-08-04] MEDS: METOPROLOL TART IMMED RELEASE 25 MG TABLET. PO SCH ×2 (08:49→20:55)
[2018-08-04] MEDS: FLUTICASONE 50MCG/NASAL SPRAY 16GM BOTTLE. NS SCH (08:49)
[2018-08-04 11:00] VITALS: BP 139/85
--- NOTE | 2018-08-04 11:21 | NUR ---
SW following pt. PT/OT pending. SW will await for PT/OT recommendation to assess skilled needs.
--- NOTE | 2018-08-04 12:32 | PDOC ---
[employer] PROGRESS NOTE Chief Complaint Chief Complaint COPD Pneumonia Respiratory failure Bronchitis History of Present Illness History of Present Illness The patient seen and examined Discussed with his RN He is currently resting with no apparent distress Has O2 per nasal cannula on Has IV Doxy running Vitals Vitals Vital Signs Date Time Temp Pulse Resp B/P (MAP) Pulse Ox O2 Delivery O2 Flow Rate FiO2 08/04/18 11:33 92 Nasal Cannula 3.0 08/04/18 11:00 97.5 91 18 139/85 (103) 97.5 Physical Exam General: Alert, Oriented X3, Cooperative, moderate distress Heart: Regular rate, Normal S1, Normal S2 Lungs: Clear, Other Abdomen: Normal bowel sounds, Soft, No tenderness, No hepatosplenomegaly, No masses Extremities: No clubbing, No cyanosis, No edema, Normal pulses, No tenderness/swelling Skin: No rashes, No breakdown, No significant lesion Labs Labs: Laboratory Tests Test 08/03/18 13:20 O2 Saturation 87 % (92-99) Arterial Blood pH 7.38 (7.35-7.45) Arterial Blood pCO2 at Patient Temp 74 mmHg (35-46) Arterial Blood pO2 at Patient Temp 52 mmHg (65-108) Arterial Blood HCO3 43 mmol/L (21-28) Arterial Blood Base Excess 14 mmol/L (-3-3) FiO2 2.5 lpm nc Assessment and Plan Assessmemt and Plan Problems Medical Problems: (1) Acute and chronic respiratory failure with hypoxia Status: Acute (2) CO2 retention Status: Acute (3) Hypochloremia Status: Acute (4) Hypoxia Status: Acute COPD Pneumonia Respiratory failure Bronchitis Plan Duo nebs and oxygen IV steroids IV antibiotics Home meds PT OT DVT prophylaxis Full code Comment Review of Relevant I have reviewed the following items zaire (where applicable) has been applied. Labs Laboratory Tests Test 08/02/18 15:40 08/02/18 22:30 08/03/18 13:20 O2 Saturation 96 % (92-99) 87 % (92-99) Arterial Blood pH 7.36 (7.35-7.45) 7.38 (7.35-7.45) Arterial Blood pCO2 at Patient Temp 78 mmHg (35-46) 74 mmHg (35-46) Arterial Blood pO2 at Patient Temp 78 mmHg (65-108) 52 mmHg (65-108) Arterial Blood HCO3 43 mmol/L (21-28) 43 mmol/L (21-28) Arterial Blood Base Excess 13 mmol/L (-3-3) 14 mmol/L (-3-3) FiO2 40 2.5 lpm nc Urine Collection Type Unknown Urine Color Yellow Urine Clarity Turbid Urine pH 7.5 Urine Specific [place] >=1.030 Urine Protein Negative mg/dL (NEG-TRACE) Urine Glucose (UA) >=1000 mg/dL (NEG) Urine Ketones (Stick) Negative mg/dL (NEG) Urine Blood Negative (NEG) Urine Nitrite Negative (NEG) Urine Bilirubin Negative (NEG) Urine Urobilinogen Dipstick 1.0 mg/dL (0.2 mg/dL) Urine Leukocyte Esterase Negative (NEG) Urine RBC 0 /HPF (0-2) Urine WBC 0 /HPF (0-4) Urine Squamous Epithelial Cells Few /LPF Urine Amorphous Sediment Present /HPF Urine Bacteria 0 /HPF (0-FEW) Urine Mucus Slight /LPF Laboratory Tests Test 08/03/18 13:20 O2 Saturation 87 % (92-99) Arterial Blood pH 7.38 (7.35-7.45) Arterial Blood pCO2 at Patient Temp 74 mmHg (35-46) Arterial Blood pO2 at Patient Temp 52 mmHg (65-108) Arterial Blood HCO3 43 mmol/L (21-28) Arterial Blood Base Excess 14 mmol/L (-3-3) FiO2 2.5 lpm nc Microbiology 08/02/18 Blood Culture - Preliminary, Resulted NO GROWTH AFTER 2 DAYS Medications Current Medications Sodium Chloride 1,000 ml @ 1,000 mls/hr Q1H IV Last administered on 08/02/18at 08:25; Start 08/02/18 at 07:13; Stop 08/02/18 at 08:12; Status DC Albuterol/ Ipratropium (Duoneb) 3 ml 1X ONCE NEB Last administered on 08/02/18at 07:30; Start 08/02/18 at 07:15; Stop 08/02/18 at 07:20; Status DC Methylprednisolone Sodium Succinate (SOLU-Medrol 125MG VIAL) 125 mg 1X ONCE IV Last administered on 08/02/18at 07:30; Start 08/02/18 at 07:15; Stop 08/02/18 at 07:20; Status DC Ceftriaxone Sodium (Rocephin) 1 gm 1X ONCE IVP Last administered on 08/02/18 12:25; Start 08/02/18 at 08:30; Stop 08/02/18 at 08:31; Status DC Sodium Chloride 1,000 ml @ 125 mls/hr Q8H IV Last administered on 08/03/18 00:20; Start 08/02/18 at 08:29; Stop 08/03/18 at 08:28; Status DC Albuterol/ Ipratropium (Duoneb) 3 ml RTQID NEB Last administered on 08/04/18 11:32; Start 08/02/18 at 12:00 Budesonide (Pulmicort) 0.5 mg RTBID NEB Last administered on 08/04/18 07:47; Start 08/02/18 at 12:00 Doxycycline Hyclate 100 mg/ Dextrose 100 ml @ 50 mls/hr Q12HR IV Last administered on 08/04/18 08:49; Start 08/02/18 at 14:30 Enoxaparin Sodium (Lovenox 40mg Syringe) 40 mg DAILY SQ Last administered on 08/04/18 08:48; Start 08/03/18 at 14:30 Albuterol Sulfate (Ventolin Neb Soln) 2.5 mg PRN Q2HR PRN NEB DYSPNEA; Start 08/02/18 at 14:00 Methylprednisolone Sodium Succinate (SOLU-Medrol 125MG VIAL) 60 mg BID IV Last administered on 08/04/18 08:48; Start 08/02/18 at 21:00 Furosemide (Lasix) 20 mg DAILY PO Last administered on 08/04/18 08:48; Start 08/03/18 at 09:00 Lactobacillus Rhamnosus (Culturelle) 1 cap BID PO Last administered on 08/04/18 08:49; Start 08/02/18 at 21:00 Metoprolol Tartrate (Lopressor) 12.5 mg BID PO Last administered on 08/04/18 08:49; Start 08/02/18 at 21:00 Pantoprazole Sodium (Protonix) 40 mg DAILYAC PO Last administered on 08/04/18 08:48; Start 08/03/18 at 07:30 Potassium Chloride (Klor-Con) 10 meq DAILY PO Last administered on 08/04/18 08:49; Start 08/03/18 at 09:00 Simethicone (Gas-X) 80 mg PRN AFTMEALHC PRN PO GAS / BLOATING; Start 08/02/18 at 16:15 Tamsulosin HCl (Flomax) 0.4 mg DAILY PO Last administered on 08/04/18at 08:48; Start 08/03/18 at 09:00 Nicotine (Nicoderm Cq 7mg) 1 patch DAILY TD Last administered on 08/04/18at 08:47; Start 08/03/18 at 09:00 Ondansetron HCl (Zofran) 4 mg PRN Q6HRS PRN IV NAUSEA/VOMITING; Start 08/02/18 at 16:15 Acetaminophen (Tylenol) 650 mg PRN Q6HRS PRN PO FEVER; Start 08/02/18 at 16:15 Guaifenesin/ Codeine Phosphate (Robitussin Ac) 5 ml PRN Q6HRS PRN PO COUGH Last administered on 08/04/18at 08:47; Start 08/02/18 at 19:00 Fluticasone Propionate (Flonase) 2 spray DAILY NS Last administered on 08/04/18at 08:49; Start 08/03/18 at 11:00 Polyethylene Glycol (miraLAX PACKET) 17 gm BID PO ; Start 08/03/18 at 21:00 Magnesium Citrate (Citroma) 296 ml PRN 1X PRN PO CONSTIPATION Last administered on 08/03/18at 16:50; Start 08/03/18 at 16:15 Active Scripts Active Culturelle (Lactobacillus Rhamnosus Gg) 1 Each Cap.sprink 1 Cap PO BID 14 Days Simethicone 80 Mg Tab.chew 80 Mg PO PRN AFTMEALHC PRN 14 Days Duoneb 0.5-3(2.5) Mg/3 Ml (Albuterol/Ipratropium) 3 Ml Ampul.neb 3 Ml NEB RTQID MDD 1 Reported Senna (Sennosides) 8.6 Mg Tablet 8.6 Mg PO BID NICODERM CQ 7mg (Nicotine) 1 Each Patch.td24 1 Patch TD DAILY Maalox Advanced Suspension (Mag Hydrox/Aluminum Hyd/Simeth) 355 Ml Oral.susp 355 Ml PO PRN Q6HRS PRN Protonix (Pantoprazole Sodium) 40 Mg Tablet.dr 40 Mg PO DAILY Potassium Chloride 10 Meq Capsule.er 10 Meq PO DAILY Lasix (Furosemide) 20 Mg Tablet 1 Tab PO DAILY Advair 500-50 Diskus (Fluticasone/Salmeterol) 1 Each Disk.w.dev 1 Puff IH DAILY Spiriva (Tiotropium [place]) 18 Mcg Cap.w.dev 1 Cap IH DAILY Flomax (Tamsulosin Hcl) 0.4 Mg Cap.er.24h 1 Cap PO DAILY Metoprolol Tartrate 25 Mg Tablet 12.5 Mg PO BID Advair 250-50 Diskus (Fluticasone/Salmeterol) 1 Each Disk.w.dev 1 Each IH Vitals/I & O Vital Sign - Last 24 Hours 08/03/18 08/03/18 08/03/18 08/03/18 12:43 15:25 17:09 19:47 Temp 98.2 97.9 98.2 97.9 Pulse 94 94 Resp 24 20 B/P (MAP) 147/83 (104) 128/75 (92) Pulse Ox 88 88 91 O2 Delivery Nasal Cannula Nasal Cannula Nasal Cannula Nasal Cannula O2 Flow Rate 2.5 3.0 2.5 3.0 08/03/18 08/03/18 08/03/18 08/03/18 20:00 20:36 20:37 21:28 Pulse 94 B/P (MAP) 128/75 Pulse Ox 91 91 O2 Delivery Nasal Cannula Nasal Cannula Nasal Cannula O2 Flow Rate 3.0 3.0 3.0 08/03/18 08/03/18 08/04/18 08/04/18 21:51 23:38 00:57 03:57 Temp 98.1 98.8 98.1 98.8 Pulse 94 92 Resp 20 20 B/P (MAP) 131/75 (93) 131/74 (93) Pulse Ox 95 90 O2 Delivery BiPAP/CPAP Nasal Cannula BiPAP/CPAP Nasal Cannula O2 Flow Rate 3.0 3.0 08/04/18 08/04/18 08/04/18 08/04/18 07:00 07:49 08:00 08:49 Temp 97.8 97.8 Pulse 93 93 Resp 16 B/P (MAP) 131/73 (92) 131/73 Pulse Ox 91 94 O2 Delivery Nasal Cannula Nasal Cannula Nasal Cannula O2 Flow Rate 3.0 3.0 3.0 08/04/18 08/04/18 11:00 11:33 Temp 97.5 97.5 Pulse 91 Resp 18 B/P (MAP) 139/85 (103) Pulse Ox 91 92 O2 Delivery Nasal Cannula Nasal Cannula O2 Flow Rate 3.0 3.0 Intake and Output 08/03/18 08/03/18 08/04/18 15:00 23:00 07:00 Intake Total 600 ml 2400 ml Output Total 500 ml Balance 600 ml 2400 ml -500 ml ANÍBAL BAUTISTA III DO Aug 04, 2018 12:32
[2018-08-04 15:00] VITALS: BP 179/71
[2018-08-04 19:10] VITALS: BP 144/82
[2018-08-04 23:40] VITALS: BP 145/81
[2018-08-05 03:41] VITALS: BP 136/81
[2018-08-05 07:20] VITALS: BP 130/76
[2018-08-05] MEDS: BUDESONIDE 0.5 MG/2 ML NEBU. NEB SCH ×2 (08:07→19:33)
[2018-08-05] MEDS: IPRATRPIUM/ALBUTEROL 0.5/2.5MG 3 ML NEBU. NEB SCH ×4 (08:07→19:32)
[2018-08-05] MEDS: POLYETHYLENE GLYCOL 3350 17 GM PACKET. PO SCH ×2 (09:00→21:11)
--- NOTE | 2018-08-05 09:11 | PDOC ---
PULMONARY PROGRESS NOTES Subjective STILL SOA NOT ABLE TO COMPLETE SENTENCES Vitals Vital Signs Date Time Temp Pulse Resp B/P (MAP) Pulse Ox O2 Delivery O2 Flow Rate FiO2 08/05/18 08:12 93 Nasal Cannula 3.0 08/05/18 07:20 97.2 83 20 130/76 (94) 97.2 ROS: No Nausea, No Chest Pain, No Abdominal Pain, No Increase Cough General: Alert, No acute distress Lungs: Wheezing, Other (SEVERE WHEEZE) Cardiovascular: S1, S2 Abdomen: Soft, Non-tender Neuro Exam: Alert Extremities: No Edema, Other Skin: Warm Labs Laboratory Tests Test 08/03/18 13:20 O2 Saturation 87 % (92-99) Arterial Blood pH 7.38 (7.35-7.45) Arterial Blood pCO2 at Patient Temp 74 mmHg (35-46) Arterial Blood pO2 at Patient Temp 52 mmHg (65-108) Arterial Blood HCO3 43 mmol/L (21-28) Arterial Blood Base Excess 14 mmol/L (-3-3) FiO2 2.5 lpm nc Medications Active Scripts Medications Dose Route/Sig Max Daily Dose Days Date Category Culturelle (Lactobacillus Rhamnosus Gg) 1 Each Cap.sprink 1 Cap PO BID 14 05/20/18 Rx Simethicone 80 Mg Tab.chew 80 Mg PO PRN AFTMEALHC PRN 14 05/20/18 Rx Senna (Sennosides) 8.6 Mg Tablet 8.6 Mg PO BID 05/18/18 Reported NICODERM CQ 7mg (Nicotine) 1 Each Patch.td24 1 Patch TD DAILY 05/18/18 Reported Maalox Advanced Suspension (Mag Hydrox/Aluminum Hyd/Simeth) 355 Ml Oral.susp 355 Ml PO PRN Q6HRS PRN 05/18/18 Reported Duoneb 0.5-3(2.5) Mg/3 Ml (Albuterol/Ipratropium) 3 Ml Ampul.neb 3 Ml NEB RTQID MDD 1 05/10/18 Rx Protonix (Pantoprazole Sodium) 40 Mg Tablet.dr 40 Mg PO DAILY 11/18/15 Reported Potassium Chloride 10 Meq Capsule.er 10 Meq PO DAILY 11/18/15 Reported Lasix (Furosemide) 20 Mg Tablet 1 Tab PO DAILY 11/18/15 Reported Advair 500-50 Diskus (Fluticasone/Salmeterol) 1 Each Disk.w.dev 1 Puff IH DAILY 10/11/15 Reported Spiriva (Tiotropium [place]) 18 Mcg Cap.w.dev 1 Cap IH DAILY 10/11/15 Reported Flomax (Tamsulosin Hcl) 0.4 Mg Cap.er.24h 1 Cap PO DAILY 10/11/15 Reported Metoprolol Tartrate 25 Mg Tablet 12.5 Mg PO BID 10/11/15 Reported Advair 250-50 Diskus (Fluticasone/Salmeterol) 1 Each Disk.w.dev 1 Each IH 02/14/13 Reported Impression . IMPRESSION: 1. Acute on chronic hypoxemic hypercapnic respiratory failure. 2. Acute exacerbation of chronic obstructive pulmonary disease. 3. Possible interstitial lung disease. 4. Tobacco dependence. 5. Acute nonspecific bronchitis. 6. Metabolic toxic encephalopathy, present upon admission. ct JUNE 2018 IMPRESSION: 1. There is some increased right lower lobe infiltrate such as near the lung base but also of the superior right lower lobe and right upper lobe. Findings could be on a postinfectious basis although underlying neoplastic etiology again not excludable. Assuming there are clinical findings of infection, short-term follow-up after treatment within 2 months is advised. If there are not findings suggestive of infection, PET CT or biopsy should be considered. 2. There is again fairly severe emphysema. 3. There is some coronary calcification. 4. There is stable mild mediastinal lymphadenopathy. Plan . PT WAS SCHEDULED TO D/C TODAY HE IS VERY SOA, USING ACCESSORY MUSCLE NOT ABLE TO COMPLETE FULL SENTENCES WILL HOLD D/C TILL TOMORROW D/W RN PRN MARISABEL MULLEN MD Aug 05, 2018 09:11
[2018-08-05] MEDS: FLUTICASONE 50MCG/NASAL SPRAY 16GM BOTTLE. NS SCH (11:12)
[2018-08-05 11:13] VITALS: BP 135/79
[2018-08-05] MEDS: TAMSULOSIN 0.4 MG CAP.ER.24H. PO SCH (11:13)
[2018-08-05] MEDS: PANTOPRAZOLE 40 MG TABLET.DR. PO SCH (11:13)
[2018-08-05] MEDS: FUROSEMIDE 20 MG TABLET PO SCH (11:13)
[2018-08-05] MEDS: methylPREDNISolone SOD SUCC PF 125 MG/2 ML VIAL. IV SCH ×2 (11:13→21:06)
[2018-08-05] MEDS: LACTOBACILLUS RHAMNOSUS GG 1 CAPSULE. PO SCH ×2 (11:13→21:06)
[2018-08-05] MEDS: POTASSIUM CHLORIDE 10 MEQ TABLET.ER. PO SCH (11:14)
[2018-08-05] MEDS: METOPROLOL TART IMMED RELEASE 25 MG TABLET. PO SCH ×2 (11:15→21:06)
[2018-08-05] MEDS: ENOXAPARIN 40 MG/0.4 ML SYRINGE. SQ SCH (11:16)
[2018-08-05] MEDS: NICOTINE 7MG PATCH. TD SCH (11:16)
[2018-08-05] MEDS: DOXYCYCLINE HYCLATE 100 MG in IV DEXTROSE 5% 100ML 100 ML IV SCH ×2 (11:22→21:06)
--- NOTE | 2018-08-05 11:26 | SNU/HH DC ---
DISCHARGE WITH HOME HEALTH DISCHARGE INFORMATION: Final Diagnosis: Problems Medical Problems: (1) Acute and chronic respiratory failure with hypoxia Status: Acute (2) CO2 retention Status: Acute (3) Hypochloremia Status: Acute (4) Hypoxia Status: Acute Condition on Discharge: Stable CODE STATUS: Code Status: Full HOME HEALTH: Face to Face: I certify this patient is under my care and that I, or a nurse practitioner or physician's vet assistant working with me, had a face to face encounter that meets the physician face to face encounter requirements with this patient on []. Medical Complications: COPD Nursing Home For: Admin/Educate Injections RN For Eval/Treatment: Yes Physical Therapy For: Evalulation/Treatment Occupational Therapy For: Evaluation/Treatment Speech Language Pathology For: Evaluation/Treatment Home Health Aide For: Self-care STORAGE BATTERY INSPECTOR For: Community Resources Pt Meets Homebound Status: Poor coordination w/ amb. POST DISCHARGE ORDERS: Activity Instructions for Disc: Activity as tolerated Weight Bearing Status after Di: As tolerated DIET AFTER DISCHARGE: Regular Wound/Incision Care: No wound care needed CHECKS AFTER DISCHARGE: Checks after discharge: Check blood press - daily TREATMENT/EQUIPMENT ORDERS: Adaptive Equipment Issued: None Discharge Respiratory Equipmen: Oxygen, BiPAP CERTIFICATION STATEMENT: Certification Statement: Certification Statement: Based on the above finding, I certify that this patient is confined to the home and needs intermittent long term care, physical therapy and/or speech therapy, or continues to need occupational therapy.~ This patient is under my care, and I have initiated the establishment of the plan of care.~ This patient will be followed by myself or a community physician who will periodically review the plan of care. Home Meds Active Scripts Lactobacillus Rhamnosus Gg (CULTURELLE) 1 Each Cap.sprink, 1 CAP PO BID for GI SUPPLEMENT for 14 Days, #28 CAP Prov:GARY BAEZ MD 05/20/18 Simethicone (SIMETHICONE) 80 Mg Tab.chew, 80 MG PO PRN AFTMEALHC PRN for GAS / BLOATING for 14 Days, #30 TAB.CHEW Prov:GARY BAEZ MD 05/20/18 Ipratropium/Albuterol Sulfate (DUONEB 0.5-3(2.5) MG/3 ML) 3 Ml Ampul.neb, 3 ML NEB RTQID for copd MDD 1, #30 EACH Prov:ALBERT MONTEZ MD 05/10/18 Reported Medications Sennosides (SENNA) 8.6 Mg Tablet, 8.6 MG PO BID for constipation, TAB 05/18/18 Nicotine (NICODERM CQ 7mg) 1 Each Patch.td24, 1 PATCH TD DAILY for smoking c essation, PATCH 05/18/18 Mag Hydrox/Aluminum Hyd/Simeth (Maalox Advanced Suspension) 355 Ml Oral.susp, 355 ML PO PRN Q6HRS PRN for HEARTBURN / GAS, MISC 05/18/18 Pantoprazole Sodium (PROTONIX) 40 Mg Tablet.dr, 40 MG PO DAILY, TAB 1 Refill 11/18/15 Potassium Chloride (POTASSIUM CHLORIDE) 10 Meq Capsule.er, 10 MEQ PO DAILY, TAB.SR 11/18/15 Furosemide (LASIX) 20 Mg Tablet, 1 TAB PO DAILY, #90 TAB 1 Refill 11/18/15 Fluticasone/Salmeterol (ADVAIR 500-50 DISKUS) 1 Each Disk.w.dev, 1 PUFF IH DAILY, #1 INHALER 5 Refills 10/11/15 Tiotropium [place] (SPIRIVA) 18 Mcg Cap.w.dev, 1 CAP IH DAILY, #30 CAP 3 Refills 10/11/15 Tamsulosin Hcl (FLOMAX) 0.4 Mg Cap.er.24h, 1 CAP PO DAILY, #30 CAP 11 Refills 10/11/15 Metoprolol Tartrate (METOPROLOL TARTRATE) 25 Mg Tablet, 12.5 MG PO BID, #180 TAB 1 Refill 10/11/15 Fluticasone/Salmeterol (ADVAIR 250-50 DISKUS) 1 Each Disk.w.dev, 1 EACH IH 02/14/13 ANÍBAL BAUTISTA III DO Aug 05, 2018 11:26
[2018-08-05] MEDS: guaiFENesin/CODEINE 100mg/10mg 5 ML LIQUID PO PRN ×2 (11:27→17:23)
--- NOTE | 2018-08-05 12:40 | NUR ---
Dr. Cardoso would like to hold discharge on patient for one more day. Dr. Cutler notified. Discharge discontinued.
[2018-08-05 15:13] VITALS: BP 125/80
--- NOTE | 2018-08-05 16:03 | NUR ---
SW following pt. PT/OT recommends home health and Pt spoke with Jailyn from [facility] this morning. Pt agreeable with services. Tamy will send a rep to pt's home to fix Bipap machine once pt dc home.
[2018-08-05 20:17] VITALS: BP 138/75
[2018-08-05 23:28] VITALS: BP 130/75
[2018-08-06 03:15] VITALS: BP 127/76
--- NOTE | 2018-08-06 04:14 | PN ---
DATE: 08/05/2018 CHIEF COMPLAINT: Chronic obstructive pulmonary disease exacerbation with respiratory failure. SUBJECTIVE: The patient is still mildly short of breath this morning. OBJECTIVE: I saw and examined the patient. His heart tones were normal, but his lungs were diminished, with some slight wheezing. He is still on oxygen. I discussed the case with the case management team and with Dr. Cardoso and the nurse. ASSESSMENT: Respiratory failure secondary to chronic obstructive pulmonary disease. PLAN: We were initially going to try to discharge today, but he is still just a little too unstable. We are going to give more nebulizer treatments, oxygen therapy, steroids and antibiotics and hope to discharge tomorrow, if he is doing better with home health. TOTAL TIME: 32 minutes. ANÍBAL BAUTISTA DO DR: JAKE/joshua JOB#: [id number] / [id number]
[2018-08-06] MEDS: IPRATRPIUM/ALBUTEROL 0.5/2.5MG 3 ML NEBU. NEB SCH ×4 (06:18→21:06)
[2018-08-06] MEDS: BUDESONIDE 0.5 MG/2 ML NEBU. NEB SCH ×2 (06:18→21:06)
[2018-08-06 07:00] VITALS: BP 139/79
[2018-08-06] MEDS: POTASSIUM CHLORIDE 10 MEQ TABLET.ER. PO SCH (09:00)
[2018-08-06] MEDS: FUROSEMIDE 20 MG TABLET PO SCH (09:00)
[2018-08-06] MEDS: FLUTICASONE 50MCG/NASAL SPRAY 16GM BOTTLE. NS SCH (09:00)
[2018-08-06] MEDS: POLYETHYLENE GLYCOL 3350 17 GM PACKET. PO SCH ×2 (09:13→20:14)
[2018-08-06] MEDS: NICOTINE 7MG PATCH. TD SCH (09:14)
[2018-08-06] MEDS: TAMSULOSIN 0.4 MG CAP.ER.24H. PO SCH (09:14)
[2018-08-06] MEDS: PANTOPRAZOLE 40 MG TABLET.DR. PO SCH (09:14)
[2018-08-06] MEDS: LACTOBACILLUS RHAMNOSUS GG 1 CAPSULE. PO SCH ×2 (09:14→20:14)
[2018-08-06] MEDS: ENOXAPARIN 40 MG/0.4 ML SYRINGE. SQ SCH (09:14)
[2018-08-06] MEDS: METOPROLOL TART IMMED RELEASE 25 MG TABLET. PO SCH ×2 (09:15→21:00)
[2018-08-06 11:00] VITALS: BP 136/62
--- NOTE | 2018-08-06 11:08 | PDOC ---
PULMONARY PROGRESS NOTES Subjective PATIENT STILL SOA NOT ABLE TO COMPLETE SENTENCES USING PACKAGING OPERATOR MUSCLES Vitals Vital Signs Date Time Temp Pulse Resp B/P (MAP) Pulse Ox O2 Delivery O2 Flow Rate FiO2 08/06/18 11:04 Nasal Cannula 3.0 08/06/18 09:15 91 139/79 08/06/18 07:00 97.8 20 95 97.8 ROS: No Nausea, No Chest Pain, No Abdominal Pain, No Increase Cough General: Alert, No acute distress Lungs: Wheezing, Other (SEVERE WHEEZE) Cardiovascular: S1, S2 Abdomen: Soft, Non-tender Neuro Exam: Alert Extremities: No Edema, Other Skin: Warm Medications Active Scripts Medications Dose Route/Sig Max Daily Dose Days Date Category Culturelle (Lactobacillus Rhamnosus Gg) 1 Each Cap.sprink 1 Cap PO BID 14 05/20/18 Rx Simethicone 80 Mg Tab.chew 80 Mg PO PRN AFTMEALHC PRN 14 05/20/18 Rx Senna (Sennosides) 8.6 Mg Tablet 8.6 Mg PO BID 05/18/18 Reported NICODERM CQ 7mg (Nicotine) 1 Each Patch.td24 1 Patch TD DAILY 05/18/18 Reported Maalox Advanced Suspension (Mag Hydrox/Aluminum Hyd/Simeth) 355 Ml Oral.susp 355 Ml PO PRN Q6HRS PRN 05/18/18 Reported Duoneb 0.5-3(2.5) Mg/3 Ml (Albuterol/Ipratropium) 3 Ml Ampul.neb 3 Ml NEB RTQID MDD 1 05/10/18 Rx Protonix (Pantoprazole Sodium) 40 Mg Tablet.dr 40 Mg PO DAILY 11/18/15 Reported Potassium Chloride 10 Meq Capsule.er 10 Meq PO DAILY 11/18/15 Reported Lasix (Furosemide) 20 Mg Tablet 1 Tab PO DAILY 11/18/15 Reported Advair 500-50 Diskus (Fluticasone/Salmeterol) 1 Each Disk.w.dev 1 Puff IH DAILY 10/11/15 Reported Spiriva (Tiotropium [place]) 18 Mcg Cap.w.dev 1 Cap IH DAILY 10/11/15 Reported Flomax (Tamsulosin Hcl) 0.4 Mg Cap.er.24h 1 Cap PO DAILY 10/11/15 Reported Metoprolol Tartrate 25 Mg Tablet 12.5 Mg PO BID 10/11/15 Reported Advair 250-50 Diskus (Fluticasone/Salmeterol) 1 Each Disk.w.dev 1 Each IH 02/14/13 Reported Impression . IMPRESSION: 1. Acute on chronic hypoxemic hypercapnic respiratory failure. 2. Acute exacerbation of chronic obstructive pulmonary disease. 3. Possible interstitial lung disease. 4. Tobacco dependence. 5. Acute nonspecific bronchitis. 6. Metabolic toxic encephalopathy, present upon admission. ct JUNE 2018 IMPRESSION: 1. There is some increased right lower lobe infiltrate such as near the lung base but also of the superior right lower lobe and right upper lobe. Findings could be on a postinfectious basis although underlying neoplastic etiology again not excludable. Assuming there are clinical findings of infection, short-term follow-up after treatment within 2 months is advised. If there are not findings suggestive of infection, PET CT or biopsy should be considered. 2. There is again fairly severe emphysema. 3. There is some coronary calcification. 4. There is stable mild mediastinal lymphadenopathy. Plan . HOLD DISCHARGE CONTINUE BIPAP OXYGEN SUPPLEMENTATION NEBULIZER TREATMENTS MARISABEL PULIDO MD Aug 06, 2018 11:08
--- NOTE | 2018-08-06 14:14 | PDOC ---
PROGRESS NOTES Chief Complaint Chief Complaint COPD, home O2 dependent Pneumonia Respiratory failure Bronchitis History of Present Illness History of Present Illness In the potty Very wheezy still - including on anterior auscultation Tachypneic on short phrases BiPAP at bedside-arranging for something similar gadget at home Plan: Not ready to DC, lost IV line-I have shifted to by mouth Doxy and by mouth prednisone same dose Wait for pulmonary Rounds Discussed with RN and patient-agreeable to stay Vitals Vitals Vital Signs Date Time Temp Pulse Resp B/P (MAP) Pulse Ox O2 Delivery O2 Flow Rate FiO2 08/06/18 11:04 Nasal Cannula 3.0 08/06/18 11:00 98.4 110 22 136/62 (86 91 98.4 Physical Exam General: Alert, Oriented X3, Cooperative, moderate distress Heart: Regular rate, Normal S1, Normal S2 Lungs: Wheezing, Other (SEVERE WHEEZE) Abdomen: Normal bowel sounds, Soft, No tenderness, No hepatosplenomegaly, No masses Extremities: No clubbing, No cyanosis, No edema, Normal pulses, No tenderness/swelling Skin: No rashes, No breakdown, No significant lesion Review of Systems Review of Systems wheezy, SOA short distances, no chest pain, no fever, the rest of ROS 14 point negative Assessment and Plan Assessmemt and Plan Problems Medical Problems: (1) Acute and chronic respiratory failure with hypoxia Status: Acute (2) CO2 retention Status: Acute (3) Hypochloremia Status: Acute (4) Hypoxia Status: Acute Comment Review of Relevant I have reviewed the following items zaire (where applicable) has been applied. Labs Microbiology 08/02/18 Blood Culture - Preliminary, Resulted NO GROWTH AFTER 4 DAYS Medications Current Medications Sodium Chloride 1,000 ml @ 1,000 mls/hr Q1H IV Last administered on 08/02/18at 08:25; Start 08/02/18 at 07:13; Stop 08/02/18 at 08:12; Status DC Albuterol/ Ipratropium (Duoneb) 3 ml 1X ONCE NEB Last administered on 08/02/18at 07:30; Start 08/02/18 at 07:15; Stop 08/02/18 at 07:20; Status DC Methylprednisolone Sodium Succinate (SOLU-Medrol 125MG VIAL) 125 mg 1X ONCE IV Last administered on 08/02/18at 07:30; Start 08/02/18 at 07:15; Stop 08/02/18 at 07:20; Status DC Ceftriaxone Sodium (Rocephin) 1 gm 1X ONCE IVP Last administered on 08/02/18 12:25; Start 08/02/18 at 08:30; Stop 08/02/18 at 08:31; Status DC Sodium Chloride 1,000 ml @ 125 mls/hr Q8H IV Last administered on 08/03/18 00:20; Start 08/02/18 at 08:29; Stop 08/03/18 at 08:28; Status DC Albuterol/ Ipratropium (Duoneb) 3 ml RTQID NEB Last administered on 08/06/18 11:03; Start 08/02/18 at 12:00 Budesonide (Pulmicort) 0.5 mg RTBID NEB Last administered on 08/06/18 06:18; Start 08/02/18 at 12:00 Doxycycline Hyclate 100 mg/ Dextrose 100 ml @ 50 mls/hr Q12HR IV Last a dministered on 08/05/18 21:06; Start 08/02/18 at 14:30; Stop 08/06/18 at 13:01; Status DC Enoxaparin Sodium (Lovenox 40mg Syringe) 40 mg DAILY SQ Last administered on 08/06/18 09:14; Start 08/03/18 at 14:30 Albuterol Sulfate (Ventolin Neb Soln) 2.5 mg PRN Q2HR PRN NEB DYSPNEA; Start 08/02/18 at 14:00 Methylprednisolone Sodium Succinate (SOLU-Medrol 125MG VIAL) 60 mg BID IV Last administered on 08/05/18 21:06; Start 08/02/18 at 21:00; Stop 08/06/18 at 13:01; Status DC Furosemide (Lasix) 20 mg DAILY PO Last administered on 08/05/18 11:13; Start 08/03/18 at 09:00 Lactobacillus Rhamnosus (Culturelle) 1 cap BID PO Last administered on 08/06/18 09:14; Start 08/02/18 at 21:00 Metoprolol Tartrate (Lopressor) 12.5 mg BID PO Last administered on 08/06/18 09:15; Start 08/02/18 at 21:00 Pantoprazole Sodium (Protonix) 40 mg DAILYAC PO Last administered on 08/06/18 09:14; Start 08/03/18 at 07:30 Potassium Chloride (Klor-Con) 10 meq DAILY PO Last administered on 08/05/18 11:14; Start 08/03/18 at 09:00 Simethicone (Gas-X) 80 mg PRN AFTMEALHC PRN PO GAS / BLOATING; Start 08/02/18 at 16:15 Tamsulosin HCl (Flomax) 0.4 mg DAILY PO Last administered on 08/06/18 09:14; Start 08/03/18 at 09:00 Nicotine (Nicoderm Cq 7mg) 1 patch DAILY TD Last administered on 08/06/18 09:14; Start 08/03/18 at 09:00 Ondansetron HCl (Zofran) 4 mg PRN Q6HRS PRN IV NAUSEA/VOMITING; Start 08/02/18 at 16:15 Acetaminophen (Tylenol) 650 mg PRN Q6HRS PRN PO FEVER; Start 08/02/18 at 16:15 Guaifenesin/ Codeine Phosphate (Robitussin Ac) 5 ml PRN Q6HRS PRN PO COUGH Last administered on 08/05/18 17:23; Start 08/02/18 at 19:00 Fluticasone Propionate (Flonase) 2 spray DAILY NS Last administered on 08/06/18 09:00; Start 08/03/18 at 11:00 Polyethylene Glycol (miraLAX PACKET) 17 gm BID PO Last administered on 08/06/18 09:13; Start 08/03/18 at 21:00 Magnesium Citrate (Citroma) 296 ml PRN 1X PRN PO CONSTIPATION Last administered on 08/03/18 16:50; Start 08/03/18 at 16:15 Doxycycline Hyclate (Vibra-Tab) 100 mg BID PO ; Start 08/06/18 at 21:00; Stop 08/06/18 at 21:00; Status DC Prednisone (Prednisone) 60 mg BID PO ; Start 08/06/18 at 21:00; Stop 08/06/18 at 21:00; Status DC Doxycycline Hyclate (Vibra-Tab) 100 mg BID PO ; Start 08/06/18 at 14:15 Prednisone (Prednisone) 60 mg BID PO ; Start 08/06/18 at 14:15 Active Scripts Active Culturelle (Lactobacillus Rhamnosus Gg) 1 Each Cap.sprink 1 Cap PO BID 14 Days Simethicone 80 Mg Tab.chew 80 Mg PO PRN AFTMEALHC PRN 14 Days Duoneb 0.5-3(2.5) Mg/3 Ml (Albuterol/Ipratropium) 3 Ml Ampul.neb 3 Ml NEB RTQID MDD 1 Reported Senna (Sennosides) 8.6 Mg Tablet 8.6 Mg PO BID NICODERM CQ 7mg (Nicotine) 1 Each Patch.td24 1 Patch TD DAILY Maalox Advanced Suspension (Mag Hydrox/Aluminum Hyd/Simeth) 355 Ml Oral.susp 355 Ml PO PRN Q6HRS PRN Protonix (Pantoprazole Sodium) 40 Mg Tablet.dr 40 Mg PO DAILY Potassium Chloride 10 Meq Capsule.er 10 Meq PO DAILY Lasix (Furosemide) 20 Mg Tablet 1 Tab PO DAILY Advair 500-50 Diskus (Fluticasone/Salmeterol) 1 Each Disk.w.dev 1 Puff IH DAILY Spiriva (Tiotropium [place]) 18 Mcg Cap.w.dev 1 Cap IH DAILY Flomax (Tamsulosin Hcl) 0.4 Mg Cap.er.24h 1 Cap PO DAILY Metoprolol Tartrate 25 Mg Tablet 12.5 Mg PO BID Advair 250-50 Diskus (Fluticasone/Salmeterol) 1 Each Disk.w.dev 1 Each IH Vitals/I & O Vital Sign - Last 24 Hours 08/05/18 08/05/18 08/05/18 08/05/18 15:13 15:24 19:34 20:17 Temp 97.9 98.6 97.9 98.6 Pulse 101 114 Resp 20 24 B/P (MAP) 125/80 (95) 138/75 (96) Pulse Ox 96 91 92 O2 Delivery Nasal Cannula Nasal Cannula Nasal Cannula Nasal Cannula O2 Flow Rate 3.0 3.0 3.0 3.0 08/05/18 08/05/18 08/05/18 08/05/18 20:26 21:06 21:30 23:28 Temp 98.2 98.2 Pulse 114 89 Resp 24 B/P (MAP) 138/75 130/75 (93) Pulse Ox 97 O2 Delivery Nasal Cannula BiPAP/CPAP BiPAP/CPAP O2 Flow Rate 3.0 3.0 08/06/18 08/06/18 08/06/18 08/06/18 00:06 03:05 03:15 05:21 Temp 97.7 97.7 Pulse 97 Resp 24 B/P (MAP) 127/76 (93) Pulse Ox 96 97 97 96 O2 Delivery BiPAP/CPAP BiPAP/CPAP BiPAP/CPAP BiPAP/CPAP 08/06/18 08/06/18 08/06/18 08/06/18 06:16 07:00 08:00 09:15 Temp 97.8 97.8 Pulse 91 91 Resp 20 B/P (MAP) 139/79 (99) 139/79 Pulse Ox 95 O2 Delivery Nasal Cannula Nasal Cannula Nasal Cannula O2 Flow Rate 3.0 3.0 3.0 08/06/18 08/06/18 11:00 11:04 Temp 98.4 98.4 Pulse 110 Resp 22 B/P (MAP) 136/62 (86) Pulse Ox 91 O2 Delivery Nasal Cannula Nasal Cannula O2 Flow Rate 3.0 3.0 Intake and Output 08/05/18 08/05/18 08/06/18 15:00 23:00 07:00 Intake Total 960 ml 320 ml Output Total 700 ml 500 ml 1900 ml Balance 260 ml -500 ml -1580 ml Nutrition Consultation Dietary Evaluation: Recommendations by RD: Increase Calorie Intake, Protein supplementation Comments: ensure bid Expected Outcomes/Goals: to meet > 75% est nutr needs Malnutrition Findings: Body Fat Depletion (Non Severe: Mild Depletion Weight Status: Underweight ALBERT MONTEZ MD Aug 06, 2018 14:14
[2018-08-06 15:00] VITALS: BP 126/68
[2018-08-06] MEDS: DOXYCYCLINE HYCLATE 100 MG TABLET PO SCH ×2 (16:07→20:15)
[2018-08-06] MEDS: predniSONE 20 MG TABLET PO SCH ×2 (16:07→20:17)
[2018-08-06 19:39] VITALS: BP 134/70
[2018-08-06] MEDS: guaiFENesin/CODEINE 100mg/10mg 5 ML LIQUID PO PRN (20:18)
[2018-08-06] MEDS ORDERED: DOXYCYCLINE HYCLATE 100 MG TABLET PO SCH (21:00)
[2018-08-06] MEDS ORDERED: predniSONE 20 MG TABLET PO SCH (21:00)
[2018-08-06 23:15] VITALS: BP 114/71
[2018-08-07 03:34] VITALS: BP 117/64
[2018-08-07] MEDS: BUDESONIDE 0.5 MG/2 ML NEBU. NEB SCH ×2 (06:16→20:53)
[2018-08-07] MEDS: IPRATRPIUM/ALBUTEROL 0.5/2.5MG 3 ML NEBU. NEB SCH ×4 (06:16→20:53)
[2018-08-07 07:53] VITALS: BP 148/89
[2018-08-07] MEDS: LACTOBACILLUS RHAMNOSUS GG 1 CAPSULE. PO SCH ×2 (08:44→21:37)
[2018-08-07] MEDS: PANTOPRAZOLE 40 MG TABLET.DR. PO SCH (08:44)
[2018-08-07] MEDS: POTASSIUM CHLORIDE 10 MEQ TABLET.ER. PO SCH (08:44)
[2018-08-07] MEDS: FUROSEMIDE 20 MG TABLET PO SCH (08:45)
[2018-08-07] MEDS: predniSONE 20 MG TABLET PO SCH ×2 (08:46→21:36)
[2018-08-07] MEDS: DOXYCYCLINE HYCLATE 100 MG TABLET PO SCH ×2 (08:46→21:36)
[2018-08-07] MEDS: NICOTINE 7MG PATCH. TD SCH (08:47)
[2018-08-07] MEDS: TAMSULOSIN 0.4 MG CAP.ER.24H. PO SCH (08:47)
[2018-08-07] MEDS: METOPROLOL TART IMMED RELEASE 25 MG TABLET. PO SCH ×2 (08:48→21:37)
[2018-08-07] MEDS: POLYETHYLENE GLYCOL 3350 17 GM PACKET. PO SCH ×2 (08:48→21:35)
[2018-08-07] MEDS: ENOXAPARIN 40 MG/0.4 ML SYRINGE. SQ SCH (08:49)
--- NOTE | 2018-08-07 09:40 | PDOC ---
PULMONARY PROGRESS NOTES Subjective sob cough better, no cp, is on trilogy at night, is on 02 2lp at home Vitals Vital Signs Date Time Temp Pulse Resp B/P (MAP) Pulse Ox O2 Delivery O2 Flow Rate FiO2 08/07/18 08:48 94 148/89 08/07/18 07:53 97.6 20 90 Nasal Cannula 3.0 97.6 ROS: No Nausea, No Chest Pain, No Abdominal Pain, No Increase Cough General: Alert, No acute distress Lungs: Wheezing, Other Cardiovascular: S1, S2 Abdomen: Soft, Non-tender Neuro Exam: Alert Extremities: No Edema, Other Skin: Warm Medications Active Scripts Medications Dose Route/Sig Max Daily Dose Days Date Category Culturelle (Lactobacillus Rhamnosus Gg) 1 Each Cap.sprink 1 Cap PO BID 14 05/20/18 Rx Simethicone 80 Mg Tab.chew 80 Mg PO PRN AFTMEALHC PRN 14 05/20/18 Rx Senna (Sennosides) 8.6 Mg Tablet 8.6 Mg PO BID 05/18/18 Reported NICODERM CQ 7mg (Nicotine) 1 Each Patch.td24 1 Patch TD DAILY 05/18/18 Reported Maalox Advanced Suspension (Mag Hydrox/Aluminum Hyd/Simeth) 355 Ml Oral.susp 355 Ml PO PRN Q6HRS PRN 05/18/18 Reported Duoneb 0.5-3(2.5) Mg/3 Ml (Albuterol/Ipratropium) 3 Ml Ampul.neb 3 Ml NEB RTQID MDD 1 05/10/18 Rx Protonix (Pantoprazole Sodium) 40 Mg Tablet.dr 40 Mg PO DAILY 11/18/15 Reported Potassium Chloride 10 Meq Capsule.er 10 Meq PO DAILY 11/18/15 Reported Lasix (Furosemide) 20 Mg Tablet 1 Tab PO DAILY 11/18/15 Reported Advair 500-50 Diskus (Fluticasone/Salmeterol) 1 Each Disk.w.dev 1 Puff IH DAILY 10/11/15 Reported Spiriva (Tiotropium [place]) 18 Mcg Cap.w.dev 1 Cap IH DAILY 10/11/15 Reported Flomax (Tamsulosin Hcl) 0.4 Mg Cap.er.24h 1 Cap PO DAILY 10/11/15 Reported Metoprolol Tartrate 25 Mg Tablet 12.5 Mg PO BID 10/11/15 Reported Advair 250-50 Diskus (Fluticasone/Salmeterol) 1 Each Disk.w.dev 1 Each IH 02/14/13 Reported Impression . IMPRESSION: 1. Acute on chronic hypoxemic hypercapnic respiratory failure. 2. Acute exacerbation of chronic obstructive pulmonary disease. 3. Possible interstitial lung disease. 4. Tobacco dependence. 5. Acute nonspecific bronchitis. 6. Metabolic toxic encephalopathy, present upon admission. resolved 7. abnl ct of chest ct JUNE 2018 IMPRESSION: 1. There is some increased right lower lobe infiltrate such as near the lung base but also of the superior right lower lobe and right upper lobe. Findings could be on a postinfectious basis although underlying neoplastic etiology again not excludable. Assuming there are clinical findings of infection, short-term follow-up after treatment within 2 months is advised. If there are not findings suggestive of infection, PET CT or biopsy should be considered. 2. There is again fairly severe emphysema. 3. There is some coronary calcification. 4. There is stable mild mediastinal lymphadenopathy. Plan . prednisone w taper by 10 mg q 3d use trilogy qhs at home cont abx, total of 7 days quit smoking for ever OXYGEN SUPPLEMENTATION NEBULIZER TREATMENTS fu ct in mid august discussed w pt MARITZA JAMES MD Aug 07, 2018 09:40
[2018-08-07] MEDS: FLUTICASONE 50MCG/NASAL SPRAY 16GM BOTTLE. NS SCH (10:36)
[2018-08-07 11:00] VITALS: BP 142/79
--- NOTE | 2018-08-07 12:48 | PDOC ---
PROGRESS NOTES Chief Complaint Chief Complaint COPD, home O2 dependent Pneumonia Respiratory failure Bronchitis History of Present Illness History of Present Illness Very wheezy still - including on anterior auscultation Tachypneic on short phrases BiPAP at bedside-arranging for something similar gadget at home Walked with salvador GARZA with assistance Plan: Not ready to DC, lost IV line-I have shifted to by mouth Doxy and by mouth prednisone same dose Discussed with RN and patient-agreeable to stay Vitals Vitals Vital Signs Date Time Temp Pulse Resp B/P (MAP) Pulse Ox O2 Delivery O2 Flow Rate FiO2 08/07/18 11:51 92 Nasal Cannula 3.0 08/07/18 11:00 98.1 98 20 142/79 (100) 98.1 Physical Exam General: Alert, Oriented X3, Cooperative, moderate distress Heart: Regular rate, Normal S1, Normal S2 Lungs: Wheezing, Other (SEVERE WHEEZE) Abdomen: Normal bowel sounds, Soft, No tenderness, No hepatosplenomegaly, No masses Extremities: No clubbing, No cyanosis, No edema, Normal pulses, No tenderness/swelling Skin: No rashes, No breakdown, No significant lesion Review of Systems Review of Systems wheezy, soa short distances, no cp, no fever, no abd issues Assessment and Plan Assessmemt and Plan Problems Medical Problems: (1) Acute and chronic respiratory failure with hypoxia Status: Acute (2) CO2 retention Status: Acute (3) Hypochloremia Status: Acute (4) Hypoxia Status: Acute Comment Review of Relevant I have reviewed the following items zaire (where applicable) has been applied. Labs Microbiology 08/02/18 Blood Culture - Final, Complete NO GROWTH AFTER 5 DAYS Medications Current Medications Sodium Chloride 1,000 ml @ 1,000 mls/hr Q1H IV Last administered on 08/02/18at 08:25; Start 08/02/18 at 07:13; Stop 08/02/18 at 08:12; Status DC Albuterol/ Ipratropium (Duoneb) 3 ml 1X ONCE NEB Last administered on 08/02/18at 07:30; Start 08/02/18 at 07:15; Stop 08/02/18 at 07:20; Status DC Methylprednisolone Sodium Succinate (SOLU-Medrol 125MG VIAL) 125 mg 1X ONCE IV Last administered on 08/02/18at 07:30; Start 08/02/18 at 07:15; Stop 08/02/18 at 07:20; Status DC Ceftriaxone Sodium (Rocephin) 1 gm 1X ONCE IVP Last administered on 08/02/18 12:25; Start 08/02/18 at 08:30; Stop 08/02/18 at 08:31; Status DC Sodium Chloride 1,000 ml @ 125 mls/hr Q8H IV Last administered on 08/03/18 00:20; Start 08/02/18 at 08:29; Stop 08/03/18 at 08:28; Status DC Albuterol/ Ipratropium (Duoneb) 3 ml RTQID NEB Last administered on 08/07/18 11:50; Start 08/02/18 at 12:00 Budesonide (Pulmicort) 0.5 mg RTBID NEB Last administered on 08/07/18 06:16; Start 08/02/18 at 12:00 Doxycycline Hyclate 100 mg/ Dextrose 100 ml @ 50 mls/hr Q12HR IV Last administered on 08/05/18 21:06; Start 08/02/18 at 14:30; Stop 08/06/18 at 13:01; Status DC Enoxaparin Sodium (Lovenox 40mg Syringe) 40 mg DAILY SQ Last administered on 08/07/18 08:49; Start 08/03/18 at 14:30 Albuterol Sulfate (Ventolin Neb Soln) 2.5 mg PRN Q2HR PRN NEB DYSPNEA; Start 08/02/18 at 14:00 Methylprednisolone Sodium Succinate (SOLU-Medrol 125MG VIAL) 60 mg BID IV Last administered on 08/05/18 21:06; Start 08/02/18 at 21:00; Stop 08/06/18 at 13:01; Status DC Furosemide (Lasix) 20 mg DAILY PO Last administered on 08/07/18 08:45; Start 08/03/18 at 09:00 Lactobacillus Rhamnosus (Culturelle) 1 cap BID PO Last administered on 08/07/18 08:44; Start 08/02/18 at 21:00 Metoprolol Tartrate (Lopressor) 12.5 mg BID PO Last administered on 08/07/18 08:48; Start 08/02/18 at 21:00 Pantoprazole Sodium (Protonix) 40 mg DAILYAC PO Last administered on 08/07/18 08:44; Start 08/03/18 at 07:30 Potassium Chloride (Klor-Con) 10 meq DAILY PO Last administered on 08/07/18 08:44; Start 08/03/18 at 09:00 Simethicone (Gas-X) 80 mg PRN AFTMEALHC PRN PO GAS / BLOATING; Start 08/02/18 at 16:15 Tamsulosin HCl (Flomax) 0.4 mg DAILY PO Last administered on 08/07/18 08:47; Start 08/03/18 at 09:00 Nicotine (Nicoderm Cq 7mg) 1 patch DAILY TD Last administered on 08/07/18 08:47; Start 08/03/18 at 09:00 Ondansetron HCl (Zofran) 4 mg PRN Q6HRS PRN IV NAUSEA/VOMITING; Start 08/02/18 at 16:15 Acetaminophen (Tylenol) 650 mg PRN Q6HRS PRN PO FEVER; Start 08/02/18 at 16:15 Guaifenesin/ Codeine Phosphate (Robitussin Ac) 5 ml PRN Q6HRS PRN PO COUGH Last administered on 08/06/18 20:18; Start 08/02/18 at 19:00 Fluticasone Propionate (Flonase) 2 spray DAILY NS Last administered on 08/07/18 10:36; Start 08/03/18 at 11:00 Polyethylene Glycol (miraLAX PACKET) 17 gm BID PO Last administered on 08/07/18 08:48; Start 08/03/18 at 21:00 Magnesium Citrate (Citroma) 296 ml PRN 1X PRN PO CONSTIPATION Last administered on 08/03/18 16:50; Start 08/03/18 at 16:15 Doxycycline Hyclate (Vibra-Tab) 100 mg BID PO ; Start 08/06/18 at 21:00; Stop 08/06/18 at 21:00; Status DC Prednisone (Prednisone) 60 mg BID PO ; Start 08/06/18 at 21:00; Stop 08/06/18 at 21:00; Status DC Doxycycline Hyclate (Vibra-Tab) 100 mg BID PO Last administered on 08/07/18 08:46; Start 08/06/18 at 14:15 Prednisone (Prednisone) 60 mg BID PO Last administered on 08/07/18at 08:46; Start 08/06/18 at 14:15 Active Scripts Active Culturelle (Lactobacillus Rhamnosus Gg) 1 Each Cap.sprink 1 Cap PO BID 14 Days Simethicone 80 Mg Tab.chew 80 Mg PO PRN AFTMEALHC PRN 14 Days Duoneb 0.5-3(2.5) Mg/3 Ml (Albuterol/Ipratropium) 3 Ml Ampul.neb 3 Ml NEB RTQID MDD 1 Reported Senna (Sennosides) 8.6 Mg Tablet 8.6 Mg PO BID NICODERM CQ 7mg (Nicotine) 1 Each Patch.td24 1 Patch TD DAILY Maalox Advanced Suspension (Mag Hydrox/Aluminum Hyd/Simeth) 355 Ml Oral.susp 355 Ml PO PRN Q6HRS PRN Protonix (Pantoprazole Sodium) 40 Mg Tablet.dr 40 Mg PO DAILY Potassium Chloride 10 Meq Capsule.er 10 Meq PO DAILY Lasix (Furosemide) 20 Mg Tablet 1 Tab PO DAILY Advair 500-50 Diskus (Fluticasone/Salmeterol) 1 Each Disk.w.dev 1 Puff IH DAILY Spiriva (Tiotropium [place]) 18 Mcg Cap.w.dev 1 Cap IH DAILY Flomax (Tamsulosin Hcl) 0.4 Mg Cap.er.24h 1 Cap PO DAILY Metoprolol Tartrate 25 Mg Tablet 12.5 Mg PO BID Advair 250-50 Diskus (Fluticasone/Salmeterol) 1 Each Disk.w.dev 1 Each IH Vitals/I & O Vital Sign - Last 24 Hours 08/06/18 08/06/18 08/06/18 08/06/18 15:00 15:26 19:39 19:47 Temp 98.1 97.9 98.1 97.9 Pulse 109 104 Resp 22 16 B/P (MAP) 126/68 (87) 134/70 (91) Pulse Ox 90 91 O2 Delivery Nasal Cannula Nasal Cannula Nasal Cannula Nasal Cannula O2 Flow Rate 3.0 3.0 3.0 3.0 08/06/18 08/06/18 08/06/18 08/07/18 21:00 21:07 23:15 01:25 Temp 98.2 98.2 Pulse 104 93 Resp 28 B/P (MAP) 134/70 114/71 (85) Pulse Ox 92 99 96 O2 Delivery BiPAP/CPAP Nasal Cannula BiPAP/CPAP O2 Flow Rate 3.0 08/07/18 08/07/18 08/07/18 08/07/18 03:34 06:16 07:53 08:48 Temp 98.2 97.6 98.2 97.6 Pulse 90 94 94 Resp 24 20 B/P (MAP) 117/64 (81) 148/89 (108) 148/89 Pulse Ox 97 94 90 O2 Delivery Nasal Cannula Nasal Cannula Nasal Cannula O2 Flow Rate 3.0 3.0 3.0 08/07/18 08/07/18 11:00 11:51 Temp 98.1 98.1 Pulse 98 Resp 20 B/P (MAP) 142/79 (100) Pulse Ox 82 92 O2 Delivery Nasal Cannula Nasal Cannula O2 Flow Rate 3.0 3.0 Intake and Output 08/06/18 08/06/18 08/07/18 15:00 23:00 07:00 Intake Total 500 ml 300 ml 600 ml Output Total 1350 ml Balance 500 ml 300 ml -750 ml Nutrition Consultation Dietary Evaluation: Recommendations by RD: Increase Calorie Intake, Protein supplementation Comments: ensure bid Expected Outcomes/Goals: to meet > 75% est nutr needs Malnutrition Findings: Body Fat Depletion (Non Severe: Mild Depletion Weight Status: Underweight ALBERT MONTEZ MD Aug 07, 2018 12:48
[2018-08-07 15:33] VITALS: BP 94/61
[2018-08-07 19:45] VITALS: BP 129/73
[2018-08-07 23:45] VITALS: BP 136/80
[2018-08-08 03:35] VITALS: BP 136/77
[2018-08-08 07:00] VITALS: BP 129/78
[2018-08-08] MEDS: BUDESONIDE 0.5 MG/2 ML NEBU. NEB SCH (07:06)
[2018-08-08] MEDS: IPRATRPIUM/ALBUTEROL 0.5/2.5MG 3 ML NEBU. NEB SCH ×2 (07:06→11:13)
[2018-08-08] MEDS: ENOXAPARIN 40 MG/0.4 ML SYRINGE. SQ SCH (07:59)
[2018-08-08] MEDS: predniSONE 20 MG TABLET PO SCH (07:59)
[2018-08-08] MEDS: POLYETHYLENE GLYCOL 3350 17 GM PACKET. PO SCH (07:59)
[2018-08-08] MEDS: LACTOBACILLUS RHAMNOSUS GG 1 CAPSULE. PO SCH (07:59)
[2018-08-08] MEDS: PANTOPRAZOLE 40 MG TABLET.DR. PO SCH (08:00)
[2018-08-08] MEDS: FUROSEMIDE 20 MG TABLET PO SCH (08:00)
[2018-08-08] MEDS: POTASSIUM CHLORIDE 10 MEQ TABLET.ER. PO SCH (08:00)
[2018-08-08] MEDS: DOXYCYCLINE HYCLATE 100 MG TABLET PO SCH (08:00)
[2018-08-08] MEDS: TAMSULOSIN 0.4 MG CAP.ER.24H. PO SCH (08:00)
[2018-08-08] MEDS: FLUTICASONE 50MCG/NASAL SPRAY 16GM BOTTLE. NS SCH (08:01)
[2018-08-08] MEDS: METOPROLOL TART IMMED RELEASE 25 MG TABLET. PO SCH (08:01)
--- NOTE | 2018-08-08 08:06 | PDOC ---
PULMONARY PROGRESS NOTES Subjective sob cough better, no cp, used bipap last night, is on trilogy at night, is on 02 2lp at home Vitals Vital Signs Date Time Temp Pulse Resp B/P (MAP) Pulse Ox O2 Delivery O2 Flow Rate FiO2 08/08/18 08:01 90 129/78 08/08/18 07:08 91 Nasal Cannula 3.0 08/08/18 07:00 97.5 18 97.5 ROS: No Nausea, No Chest Pain, No Abdominal Pain, No Increase Cough General: Alert, No acute distress Lungs: Other (deminished bs) Cardiovascular: S1, S2 Abdomen: Soft, Non-tender Neuro Exam: Alert Extremities: No Edema, Other Skin: Warm Medications Active Scripts Medications Dose Route/Sig Max Daily Dose Days Date Category Culturelle (Lactobacillus Rhamnosus Gg) 1 Each Cap.sprink 1 Cap PO BID 14 05/20/18 Rx Simethicone 80 Mg Tab.chew 80 Mg PO PRN AFTMEALHC PRN 14 05/20/18 Rx Senna (Sennosides) 8.6 Mg Tablet 8.6 Mg PO BID 05/18/18 Reported NICODERM CQ 7mg (Nicotine) 1 Each Patch.td24 1 Patch TD DAILY 05/18/18 Reported Maalox Advanced Suspension (Mag Hydrox/Aluminum Hyd/Simeth) 355 Ml Oral.susp 355 Ml PO PRN Q6HRS PRN 05/18/18 Reported Duoneb 0.5-3(2.5) Mg/3 Ml (Albuterol/Ipratropium) 3 Ml Ampul.neb 3 Ml NEB RTQID MDD 1 05/10/18 Rx Protonix (Pantoprazole Sodium) 40 Mg Tablet.dr 40 Mg PO DAILY 11/18/15 Reported Potassium Chloride 10 Meq Capsule.er 10 Meq PO DAILY 11/18/15 Reported Lasix (Furosemide) 20 Mg Tablet 1 Tab PO DAILY 11/18/15 Reported Advair 500-50 Diskus (Fluticasone/Salmeterol) 1 Each Disk.w.dev 1 Puff IH DAILY 10/11/15 Reported Spiriva (Tiotropium [place]) 18 Mcg Cap.w.dev 1 Cap IH DAILY 10/11/15 Reported Flomax (Tamsulosin Hcl) 0.4 Mg Cap.er.24h 1 Cap PO DAILY 10/11/15 Reported Metoprolol Tartrate 25 Mg Tablet 12.5 Mg PO BID 10/11/15 Reported Advair 250-50 Diskus (Fluticasone/Salmeterol) 1 Each Disk.w.dev 1 Each IH 02/14/13 Reported Impression . IMPRESSION: 1. Acute on chronic hypoxemic hypercapnic respiratory failure. 2. Acute exacerbation of chronic obstructive pulmonary disease. 3. Possible interstitial lung disease. 4. Tobacco dependence. 5. Acute nonspecific bronchitis. 6. Metabolic toxic encephalopathy, present upon admission. resolved 7. abnl ct of chest ct JUNE 2018 IMPRESSION: 1. There is some increased right lower lobe infiltrate such as near the lung base but also of the superior right lower lobe and right upper lobe. Findings could be on a postinfectious basis although underlying neoplastic etiology again not excludable. Assuming there are clinical findings of infection, short-term follow-up after treatment within 2 months is advised. If there are not findings suggestive of infection, PET CT or biopsy should be considered. 2. There is again fairly severe emphysema. 3. There is some coronary calcification. 4. There is stable mild mediastinal lymphadenopathy. Plan . prednisone w taper by 10 mg q 3d use trilogy qhs at home cont abx, total of 7 days quit smoking for ever OXYGEN SUPPLEMENTATION NEBULIZER TREATMENTS need fu ct of chest in mid august discussed w pt MARITZA JAMES MD Aug 08, 2018 08:06
[2018-08-08] MEDS: NICOTINE 7MG PATCH. TD SCH (09:56)
[2018-08-08] MEDS ORDERED: NICO1PAT21 TP (10:21)
[2018-08-08] MEDS ORDERED: DOXY100T PO (10:21)
[2018-08-08] MEDS ORDERED: FLUT1DIS5 IH (10:23)
--- NOTE | 2018-08-08 10:25 | PDOC3 ---
Discharge Summary Visit Information Date of Admission: Aug 02, 2018 Date of Discharge: Aug 08, 2018 Admitting Diagnosis Comment: COPD, home O2 dependent Pneumonia Respiratory failure Bronchitis Final Diagnosis Problems Medical Problems: (1) Acute and chronic respiratory failure with hypoxia Status: Acute (2) CO2 retention Status: Acute (3) Hypochloremia Status: Acute (4) Hypoxia Status: Acute Brief Hospital Course Allergies Allergies Coded Allergies Type Severity Reaction Last Updated Verified morphine Allergy Intermediate Itching 07/15/18 Yes Vital Signs Vital Signs Date Time Temp Pulse Resp B/P (MAP) Pulse Ox O2 Delivery O2 Flow Rate FiO2 08/08/18 08:01 90 129/78 08/08/18 07:50 Nasal Cannula 3.0 08/08/18 07:08 91 08/08/18 07:00 97.5 18 97.5 Brief Hospital Course Mr. Romero is a 67 old white male home O2 dependent O2, 2 L nasal cannula comes in because of COPD flare with high wheezing component both on anterior and posterior auscultation. Comanagement pulmonary. Needed BiPAP. He has home Trilogy. He basically stayed maybe close to 1 week here with us to get the wheezing under control. He will discharged today to continue Advair 500/250, prednisone taper, Doxy for 7 days. Trilogy during the night and O2 2 L nasal cannula at baseline All Rx on chart DC time 31 minutes discussed with GRISELDA Martínez Discharge Information Condition at Discharge: Improved, Stable Disposition/Orders: D/C to Home Scheduled Doxycycline Hyclate (Doxycycline Hyclate) 100 Mg Tablet, 100 MG PO BID for bronchitis MDD 1, #14 Prescribed by: ALBERT MONTEZ on 08/08/18 1021 Fluticasone/Salmeterol (Advair 500-50 Diskus) 1 Each Disk.w.dev, 1 PUFF IH DAILY, #1 Ref 5 (Reported) Entered as Reported by: ROSEMARIE VILLANUEVA on 10/11/15 0414 Last Taken: UNKNOWN on Unknown Date & Time Last Action: Last Taken Edited on 08/02/18 09 by ROLAN ELAM Fluticasone/Salmeterol (Advair 500-50 Diskus) 1 Each Disk.w.dev, 1 PUFF IH BID for copd, #1 Ref 5 Prescribed by: ALBERT MONTEZ on 08/08/18 1023 Furosemide (Lasix) 20 Mg Tablet, 1 TAB PO DAILY, #90 Ref 1 (Reported) Entered as Reported by: Kate Casarez on 11/18/15 1156 Last Taken: Unknown Dose on 08/01/18 Last Action: Continued on 08/02/181612 by EVGENY ELIZABETH MD Ipratropium/Albuterol Sulfate (Duoneb 0.5-3(2.5) Mg/3 Ml) 3 Ml Ampul.neb, 3 ML NEB RTQID for copd MDD 1, #30 Prescribed by: ALBERT MONTEZ on 05/10/18 1227 Last Taken: Unknown Dose on 08/01/18 Last Action: Last Taken Edited on 08/02/18 09 by ROLAN ELAM Lactobacillus Rhamnosus Gg (Culturelle) 1 Each Cap.sprink, 1 CAP PO BID for GI SUPPLEMENT for 14 Days, #28 Prescribed by: GARY BAEZ MD on 05/20/18 1105 Last Taken: Unknown Dose on Unknown Date & Time Last Action: Continued on 08/02/181612 by EVGENY ELIZABETH MD Metoprolol Tartrate (Metoprolol Tartrate) 25 Mg Tablet, 12.5 MG PO BID, #180 Ref 1 (Reported) Entered as Reported by: ROSEMARIE VILLANUEVA on 10/11/15 0414 Last Taken: Unknown Dose on 08/02/18 Last Action: Continued on 08/02/181612 by EVGENY ELIZABETH MD Nicotine (NICODERM CQ 7mg) 1 Each Patch.td24, 1 PATCH TD DAILY for smoking cessation, (Reported) Entered as Reported by: BALA RAMACHANDRAN on 05/18/18 1840 Last Taken: Unknown Dose on Unknown Date & Time Last Action: Converted on 08/02/181612 by EVGENY ELIZABETH MD Nicotine (NICODERM CQ 21mg) 1 Each Patch.td24, 1 PATCH TP DAILY for smoking cessation, #28 Ref 1 Prescribed by: ALBERT MONTEZ on 08/08/18 1021 Pantoprazole Sodium (Protonix) 40 Mg Tablet.dr, 40 MG PO DAILY, Ref 1 (Reported) Entered as Reported by: Kate Casarez on 11/18/15 1229 Last Taken: Unknown Dose on 08/01/18 Last Action: Continued on 08/02/181612 by EVGENY ELIZABETH MD Potassium Chloride (Potassium Chloride) 10 Meq Capsule.er, 10 MEQ PO DAILY, (Reported) Entered as Reported by: Kate Shresthat on 11/18/15 1157 Last Taken: Unknown Dose on 08/01/18 Last Action: Continued on 08/02/181612 by EVGENY ELIZABETH MD Sennosides (Senna) 8.6 Mg Tablet, 8.6 MG PO BID for constipation, (Reported) Entered as Reported by: BALA RAMACHANDRAN on 05/18/181839 Last Taken: Unknown Dose on Unknown Date & Time Last Action: Last Taken Edited on 08/02/18906 by ROLAN ELAM Tamsulosin Hcl (Flomax) 0.4 Mg Cap.er.24h, 1 CAP PO DAILY, #30 Ref 11 (Reported) Entered as Reported by: ROSEMARIE VILLANUEVA on 10/11/15413 Last Taken: Unknown Dose on 08/01/18 Last Action: Continued on 08/02/181612 by EVGENY ELIZABETH MD Tiotropium [place] (Spiriva) 18 Mcg Cap.w.dev, 1 CAP IH DAILY, #30 Ref 3 (Reported) Entered as Reported by: ROSEMARIE VILLANUEVA on 10/11/15413 Last Taken: Unknown Dose on 08/01/18 Last Action: Last Taken Edited on 08/02/18906 by ROLAN ELAM Scheduled PRN Mag Hydrox/Aluminum Hyd/Simeth (Maalox Advanced Suspension) 355 Ml Oral.susp, 355 ML PO PRN Q6HRS PRN for HEARTBURN / GAS, (Reported) Entered as Reported by: BALA RAMACHANDRAN on 05/18/181839 Last Taken: Unknown Dose on Unknown Date & Time Last Action: Last Taken Edited on 08/02/18906 by ROLAN ELAM Simethicone (Simethicone) 80 Mg Tab.chew, 80 MG PO PRN AFTMEALHC PRN for GAS / BLOATING for 14 Days, #30 Prescribed by: GARY BAEZ MD on 05/20/18 1105 Last Taken: Unknown Dose on Unknown Date & Time Last Action: Continued on 08/02/181612 by EVGENY ELIZABETH MD Discontinued Medications Fluticasone/Salmeterol (Advair 250-50 Diskus) 1 Each Disk.w.dev, 1 EACH IH, (Reported) Entered as Reported by: RASHEL RIOS on 02/14/13 0618 Last Taken: UNKNOWN on Unknown Date & Time Last Action: Last Taken Edited on 08/02/18 0907 by ALBERT BHAT MD Aug 08, 2018 10:25
--- NOTE | 2018-08-08 10:26 | SNU/HH DC ---
DISCHARGE WITH HOME HEALTH DISCHARGE INFORMATION: Discharge Date: Aug 08, 2018 Final Diagnosis: Problems Medical Problems: (1) Acute and chronic respiratory failure with hypoxia Status: Acute (2) CO2 retention Status: Acute (3) Hypochloremia Status: Acute (4) Hypoxia Status: Acute Condition on Discharge: Stable CODE STATUS: Code Status: Full HOME HEALTH: Face to Face: I certify this patient is under my care and that I, or a nurse practitioner or physician's certified physician assistant working with me, had a face to face encounter that meets the physician face to face encounter requirements with this patient on []. RN For Eval/Treatment: Yes Physical Therapy For: Evalulation/Treatment Occupational Therapy For: Evaluation/Treatment Home Health Aide For: Self-care PLASTIC BOAT BUFFER For: Community Resources Pt Meets Homebound Status: Extreme weakness w/ amb. POST DISCHARGE ORDERS: Activity Instructions for Disc: Activity as tolerated Weight Bearing Status after Di: As tolerated DIET AFTER DISCHARGE: Regular Wound/Incision Care: No wound care needed CHECKS AFTER DISCHARGE: Checks after discharge: Check blood press - daily TREATMENT/EQUIPMENT ORDERS: Adaptive Equipment Issued: None Discharge Respiratory Equipmen: Oxygen, BiPAP CERTIFICATION STATEMENT: Certification Statement: Certification Statement: Based on the above finding, I certify that this patient is confined to the home and needs intermittent residential care, physical therapy and/or speech therapy, or continues to need occupational therapy.~ This patient is under my care, and I have initiated the establishment of the plan of care.~ This patient will be followed by myself or a community physician who will periodically review the plan of care. Home Meds Active Scripts Fluticasone/Salmeterol (ADVAIR 500-50 DISKUS) 1 Each Disk.w.dev, 1 PUFF IH BID for copd, #1 INHALER 5 Refills Prov:ALBERT MONTEZ MD 08/08/18 Nicotine (NICODERM CQ 21mg) 1 Each Patch.td24, 1 PATCH TP DAILY for smoking cessation, #28 PATCH 1 Refill Prov:ALBERT MONTEZ MD 08/08/18 Doxycycline Hyclate (DOXYCYCLINE HYCLATE) 100 Mg Tablet, 100 MG PO BID for bronchitis MDD 1, #14 TAB Prov:ALBERT MONTEZ MD 08/08/18 Lactobacillus Rhamnosus Gg (CULTURELLE) 1 Each Cap.sprink, 1 CAP PO BID for GI SUPPLEMENT for 14 Days, #28 CAP Prov:GARY BAEZ MD 05/20/18 Simethicone (SIMETHICONE) 80 Mg Tab.chew, 80 MG PO PRN AFTMEALHC PRN for GAS / BLOATING for 14 Days, #30 TAB.CHEW Prov:GARY BAEZ MD 05/20/18 Ipratropium/Albuterol Sulfate (DUONEB 0.5-3(2.5) MG/3 ML) 3 Ml Ampul.neb, 3 ML NEB RTQID for copd MDD 1, #30 EACH Prov:ALBERT MONTEZ MD 05/10/18 Reported Medications Sennosides (SENNA) 8.6 Mg Tablet, 8.6 MG PO BID for constipation, TAB 05/18/18 Nicotine (NICODERM CQ 7mg) 1 Each Patch.td24, 1 PATCH TD DAILY for smoking cessation, PATCH 05/18/18 Mag Hydrox/Aluminum Hyd/Simeth (Maalox Advanced Suspension) 355 Ml Oral.susp, 355 ML PO PRN Q6HRS PRN for HEARTBURN / GAS, MISC 05/18/18 Pantoprazole Sodium (PROTONIX) 40 Mg Tablet.dr, 40 MG PO DAILY, TAB 1 Refill 11/18/15 Potassium Chloride (POTASSIUM CHLORIDE) 10 Meq Capsule.er, 10 MEQ PO DAILY, TAB.SR 11/18/15 Furosemide (LASIX) 20 Mg Tablet, 1 TAB PO DAILY, #90 TAB 1 Refill 11/18/15 Fluticasone/Salmeterol (ADVAIR 500-50 DISKUS) 1 Each Disk.w.dev, 1 PUFF IH DAILY, #1 INHALER 5 Refills 10/11/15 Tiotropium [place] (SPIRIVA) 18 Mcg Cap.w.dev, 1 CAP IH DAILY, #30 CAP 3 Refills 10/11/15 Tamsulosin Hcl (FLOMAX) 0.4 Mg Cap.er.24h, 1 CAP PO DAILY, #30 CAP 11 Refills 10/11/15 Metoprolol Tartrate (METOPROLOL TARTRATE) 25 Mg Tablet, 12.5 MG PO BID, #180 TAB 1 Refill 10/11/15 Discontinued Reported Medications Fluticasone/Salmeterol (ADVAIR 250-50 DISKUS) 1 Each Disk.w.dev, 1 EACH IH 02/14/13 ALBERT MONTEZ MD Aug 08, 2018 10:26
[2018-08-08 10:46] VITALS: BP 123/69
--- NOTE | 2018-08-08 13:13 | NUR ---
Discharge Note: [place] [place] Discharge instructions and discharge home medications reviewed with Patient and a copy given. All questions have been answered and understanding verbalized. The following instructions and handouts were given: discharge instructions, home health agency number, new prescriptions, education and follow up recommendations. Discontinued lines and drains: Peripheral IV discontinued intact. Patient discharged to Home or Self Care with Self via Wheelchair off unit for cab ride home
== END 2018-08-08 13:15 | disposition home health service (06) | DRG 871 ==
LOC: ER 07:01 → 6 SOUTH 07:13 → 5 NORTH 08-08 05:32
PROVIDERS: ADMIT Internal Medicine; ATTEND Internal Medicine
PROC: 5A09357 Assistance with Respiratory Ventilation, Less than 24 Consecutive Hours, Continuous Positive Airway Pressure (ICD-10-PCS; principal; 2018-08-02)
PROC: 5A09357 Assistance with Respiratory Ventilation, Less than 24 Consecutive Hours, Continuous Positive Airway Pressure (ICD-10-PCS; 2018-08-03)
PROC: 5A09357 Assistance with Respiratory Ventilation, Less than 24 Consecutive Hours, Continuous Positive Airway Pressure (ICD-10-PCS; 2018-08-04)
PROC: 5A09357 Assistance with Respiratory Ventilation, Less than 24 Consecutive Hours, Continuous Positive Airway Pressure (ICD-10-PCS; 2018-08-05)
PROC: 5A09357 Assistance with Respiratory Ventilation, Less than 24 Consecutive Hours, Continuous Positive Airway Pressure (ICD-10-PCS; 2018-08-07)
DX: A41.9 Sepsis, unspecified organism (principal); J96.21 Acute and chronic respiratory failure with hypoxia; J18.9 Pneumonia, unspecified organism; G92 Toxic encephalopathy; J96.22 Acute and chronic respiratory failure with hypercapnia; E78.5 Hyperlipidemia, unspecified; E87.8 Other disorders of electrolyte and fluid balance, not elsewhere classified; F17.210 Nicotine dependence, cigarettes, uncomplicated; I11.0 Hypertensive heart disease with heart failure; I25.10 Atherosclerotic heart disease of native coronary artery without angina pectoris; I50.9 Heart failure, unspecified; J43.9 Emphysema, unspecified; J20.9 Acute bronchitis, unspecified; K21.9 Gastro-esophageal reflux disease without esophagitis; K59.00 Constipation, unspecified; N40.0 Benign prostatic hyperplasia without lower urinary tract symptoms; Z79.51 Long term (current) use of inhaled steroids; Z79.899 Other long term (current) drug therapy; Z82.49 Family history of ischemic heart disease and other diseases of the circulatory system; Z99.81 Dependence on supplemental oxygen; Z88.8 Allergy status to other drugs, medicaments and biological substances
CPT/HCPCS: 36415; 36600; 70450; 71045; 80053; 81001; 82550; 82805; 83605; 83880; 84145; 84484; 85025; 87040; 93005; 94640; 94660; 94760; 96374; J0696; J1650; J2930; J3490; J7030; J7512; J7620; J7626; 97116; 99285-25

== ENCOUNTER 2018-08-30 14:31 | Inpatient (IN) | payer MEDICARE ==
[~2018-08-30] VITALS: Ht 165.1 cm; Wt 64.4 kg
[~2018-08-30 14:31] MED LIST changes: +NICO1PAT21 TP; -PANT40TA3 PO; +PANT40TA77 PO
[2018-08-30] MEDS ORDERED: IPRATRPIUM/ALBUTEROL 0.5/2.5MG 3 ML NEBU. ONE (14:37)
--- NOTE | 2018-08-30 14:51 | PHYS DOC ---
Past Medical History Past Medical History: Asthma, CHF, COPD, GERD, Hypertension, Pneumonia Additional Past Medical Histor: BPH, home oxygen Past Surgical History: Other Additional Past Surgical Histo: left shoulder rotator cuff repair Alcohol Use: Sober Drug Use: None Adult General Chief Complaint Chief Complaint: SHORTNESS OF BREATH HPI HPI Patient is a 68-year-old male with a past history of COPD, on home oxygen, who states he quit smoking a few days ago, who presents to the emergency department via EMS for increasing respiratory difficulty or respiratory distress. He was placed on CPAP by EMS, but is tolerating nasal cannula in the emergency department. Does report increasing trouble breathing over the past few days after receiving a Pneumovax. He denies any pain, including any chest pain, has had a cough productive of greenish sputum, and denies any fevers or chills. There are no alleviating or exacerbating factors to his symptoms, although exertion seems to worsen his symptoms. Reviewed the patient's records reveals that he was admitted to the hospital for difficulty breathing at the beginning of July. He had an echocardiogram in April of this past year, which showed an EF of 50 of 55%. Review of Systems Review of Systems Constitutional: Denies fever or chills [] Eyes: Denies change in visual acuity, redness, or eye pain [] HENT: Denies nasal congestion or sore throat [] Respiratory: No additional information not addressed in HPI [] Cardiovascular:The patient denies any chest pain, palpitations, or orthopnea [] GI: Denies abdominal pain, nausea, vomiting, bloody stools or diarrhea [] : Denies dysuria or hematuria [] Musculoskeletal: Denies back pain or joint pain [] Integument: Denies rash or skin lesions [] Neurologic: Denies headache, focal weakness or sensory changes [] Endocrine: Denies polyuria or polydipsia [] All other systems were reviewed and found to be within normal limits, except as documented in this note. Current Medications Current Medications Current Medications Medications (Trade) Dose Ordered Sig/Elijah Start Time Stop Time Status Last Admin Dose Admin Albuterol/ Ipratropium (Duoneb) 3 ml 1X ONCE 08/30/18 15:00 08/30/18 15:01 DC 08/30/18 14:53 3 ML Methylprednisolone Sodium Succinate (SOLU-Medrol 125MG VIAL) 125 mg 1X ONCE 08/30/18 15:00 08/30/18 15:01 DC 08/30/18 15:03 125 MG Sodium Chloride 1,000 ml @ 1,000 mls/hr 1X ONCE 08/30/18 15:00 08/30/18 15:59 08/30/18 15:05 1,000 MLS/HR Allergies Allergies Allergies Coded Allergies Type Severity Reaction Last Updated Verified morphine Allergy Intermediate Itching 07/15/18 Yes Physical Exam Physical Exam PHYSICAL EXAM: CONSTITUTIONAL: Well developed, well nourished HEAD: normocephalic, atraumatic EENT: PERRL, EOMI. Conjunctivae normal color, sclerae non-icteric; moist mucous membranes. NECK: Supple, non-tender; no meningismus. LUNGS: There are globally diminished breath sounds in all lung munson, with scattered wheezing diffusely. There are no rales or rhonchi. There is moderately increased work of breathing. HEART: Regular rate and rhythm, no murmur CHEST: No deformity; non-tender ABDOMEN: The abdomen is soft, and non-tender, no masses or bruits. EXTREM: Normal ROM; no deformity, no calf tenderness. Normal pulses palpable in all extremities. There is no pedal edema. SKIN: No rash; no diaphoresis NEURO: Alert; normal speech and cognition; CN's grossly intact; strength grossly intact without focal deficit. BACK: No CVA TTP. Current Patient Data Vital Signs Vital Signs Date Time Temp Pulse Resp B/P (MAP) Pulse Ox O2 Delivery O2 Flow Rate FiO2 08/30/18 15:06 91 BiPAP/CPAP 08/30/18 15:00 2.5 08/30/18 14:31 98.4 113 24 124/64 (84) 98.4 Lab Values Laboratory Tests Test 08/30/18 14:40 08/30/18 14:45 White Blood Count 6.5 x10^3/uL (4.0-11.0) Red Blood Count 3.95 x10^6/uL (4.30-5.70) L Hemoglobin 12.1 g/dL (13.0-17.5) L Hematocrit 36.6 % (39.0-53.0) L Mean Corpuscular Volume 93 fL (79-100) Mean Corpuscular Hemoglobin 31 pg (25-35) Mean Corpuscular Hemoglobin Concent 33 g/dL (31-37) Red Cell Distribution Width 15.0 % (11.5-14.5) H Platelet Count 225 x10^3/uL (140-400) Neutrophils (%) (Auto) 82 % (31-73) H Lymphocytes (%) (Auto) 12 % (24-48) L Monocytes (%) (Auto) 5 % (0-9) Eosinophils (%) (Auto) 2 % (0-3) Basophils (%) (Auto) 1 % (0-3) Neutrophils # (Auto) 5.3 x10^3uL (1.8-7.7) Lymphocytes # (Auto) 0.8 x10^3/uL (1.0-4.8) L Monocytes # (Auto) 0.3 x10^3/uL (0.0-1.1) Eosinophils # (Auto) 0.1 x10^3/uL (0.0-0.7) Basophils # (Auto) 0.0 x10^3/uL (0.0-0.2) Sodium Level 139 mmol/L (136-145) Potassium Level 4.1 mmol/L (3.5-5.1) Chloride Level 97 mmol/L (98-107) L Carbon Dioxide Level > 45 mmol/L (21-32) H Anion Gap (6-14) Blood Urea Nitrogen 13 mg/dL (8-26) Creatinine 0.6 mg/dL (0.7-1.3) L Estimated GFR (Cockcroft-Gault) 133.6 BUN/Creatinine Ratio 22 (6-20) H Glucose Level 213 mg/dL (70-99) H Calcium Level 9.3 mg/dL (8.5-10.1) Total Bilirubin 0.3 mg/dL (0.2-1.0) Aspartate Amino Transferase (AST) 16 U/L (15-37) Alanine Aminotransferase (ALT) 23 U/L (16-63) Alkaline Phosphatase 105 U/L (46-116) Troponin I Quantitative < 0.017 ng/mL (0.000-0.055) EK-Gfe-R-Type Natriuretic Peptide 39 pg/mL (0-124) Total Protein 6.7 g/dL (6.4-8.2) Albumin 3.4 g/dL (3.4-5.0) Albumin/Globulin Ratio 1.0 (1.0-1.7) O2 Saturation 90 % (92-99) L Arterial Blood pH 7.25 (7.35-7.45) L Arterial Blood pCO2 at Patient Temp 104 mmHg (35-46) *H Arterial Blood pO2 at Patient Temp 62 mmHg (65-108) L Arterial Blood HCO3 45 mmol/L (21-28) H Arterial Blood Base Excess 13 mmol/L (-3-3) H FiO2 30% Laboratory Tests 08/30/18 14:40 Laboratory Tests 08/30/18 14:40 EKG EKG [Normal sinus rhythm at a rate of 115 bpm with occasional PVCs, normal axis, normal ischemic ST/T changes.] Radiology/Procedures Radiology/Procedures [PROCEDURE: PORTABLE CHEST 1V Examination: PORTABLE CHEST 1V History: Shortness of breath Comparison/Correlation: 08/02/2018 portable chest x-ray exam Findings: Portable upright frontal view chest was obtained. Heart size is normal. No pneumothorax. Interstitial thickening of the lung munson is similar to prior exam. No new infiltrate. There is very minimal interstitial linear thickening of the left lower lung field that is more evident. No dense consolidation in the interval. No definite pleural effusion. Bony structures are unremarkable. Impression: No suspicious new process. No focal consolidation in the interval.] Course & Med Decision Making Course & Med Decision Making Pertinent Labs and Imaging studies reviewed. (See chart for details) []The patient's condition remains stable. I spoke with the hospitalist, who accepted the patient to the hospital for further evaluation and treatm ent.pulmonary on-call has been consult as well Dragon Disclaimer Dragon Disclaimer This electronic medical record was generated, in whole or in part, using a voice recognition dictation system. Departure Departure Impression: Primary Impression: COPD exacerbation Additional Impression: Acute and chronic respiratory failure with hypoxia Disposition: ADMITTED INPATIENT Admitting Physician: HIMS Condition: STABLE Referrals: DUSTY RAGSDALE MD (PCP) Problem Qualifiers MARY BOSCH MD Aug 30, 2018 14:51
[2018-08-30 14:56] LABS: BASO % 1 % (0-3); EOS # 0.1 x10^3/uL (0.0-0.7); EOS % 2 % (0-3); HEMATOCRIT 36.6 % (39.0-53.0); HEMOGLOBIN 12.1 g/dL (13.0-17.5); LYMPH # 0.8 x10^3/uL (1.0-4.8); LYMPH % 12 % (24-48); MEAN CORPUSCULAR HEMOGLOBIN 31 pg (25-35); MEAN CORPUSCULAR HGB CONC 33 g/dL (31-37); MEAN CORPUSCULAR VOLUME 93 fL (79-100); MONO # 0.3 x10^3/uL (0.0-1.1); MONO % 5 % (0-9); NEUT # 5.3 x10^3uL (1.8-7.7); NEUT % 82 % (31-73); PLATELET COUNT 225 x10^3/uL (140-400); RED BLOOD COUNT 3.95 x10^6/uL (4.30-5.70); WHITE BLOOD COUNT 6.5 x10^3/uL (4.0-11.0)
[2018-08-30] MEDS ORDERED: IV NORMAL SALINE 1000ML BAG 1,000 ML IV ONE (15:00)
[2018-08-30] MEDS ORDERED: methylPREDNISolone SOD SUCC PF 125 MG/2 ML VIAL. IV ONE (15:00)
[2018-08-30] MEDS ORDERED: IPRATRPIUM/ALBUTEROL 0.5/2.5MG 3 ML NEBU. NEB ONE (15:00)
[2018-08-30 15:11] LABS: BASE EXCESS ABG 13 mmol/L (-3-3); HCO3 ABG 45 mmol/L (21-28); PO2 ABG 62 mmHg (65-108); SAT O2 ABG 90 % (92-99)
[2018-08-30 15:12] LABS: FIO2 ABG 30%; PCO2 ABG 104 mmHg (35-46)
[2018-08-30 15:20] LABS: BLOOD UREA NITROGEN 13 mg/dL (8-26); BUN/CREATININE RATIO 22 (6-20); CALCIUM 9.3 mg/dL (8.5-10.1); CHLORIDE 97 mmol/L (98-107); CREATININE 0.6 mg/dL (0.7-1.3); GFR 133.6; GLUCOSE 213 mg/dL (70-99); POTASSIUM 4.1 mmol/L (3.5-5.1); SODIUM 139 mmol/L (136-145)
--- NOTE | 2018-08-30 15:20 | EKG ---
[facility] [address] [place] [address] Test Date: 2018-08-30 Test Time: 14:36:43 Pat Name: YOUNG PENNINGTON Department: Room: Gender: M [employer] L[employer] Operator: : [id number] Requested By: MARY BOSCH Order Number: [id number] Reading MD: Measurements Intervals Mcrae Rate: 115 P: 63 MA: 120 QRS: 75 QRSD: 84 T: 63 QT: 298 QTc: 414 Interpretive Statements SINUS TACHYCARDIA VENTRICULAR PREMATURE COMPLEX(ES) ABNORMAL ECG RI6.01 Unconfirmed report No previous ECG available for comparison
--- NOTE | 2018-08-30 15:24 | RAD ---
Examination: PORTABLE CHEST 1V History: Shortness of breath Comparison/Correlation: 08/02/2018 portable chest x-ray exam Findings: Portable upright frontal view chest was obtained. Heart size is normal. No pneumothorax. Interstitial thickening of the lung munson is similar to prior exam. No new infiltrate. There is very minimal interstitial linear thickening of the left lower lung field that is more evident. No dense consolidation in the interval. No definite pleural effusion. Bony structures are unremarkable. Impression: No suspicious new process. No focal consolidation in the interval. Electronically signed by: Eric Hernandez MD (08/30/2018 3:21 PM) [facility]
[2018-08-30 15:27] LABS: ALBUMIN 3.4 g/dL (3.4-5.0); ALK PHOS 105 U/L (46-116); ALT (SGPT) 23 U/L (16-63); AST (SGOT) 16 U/L (15-37); TOTAL BILIRUBIN 0.3 mg/dL (0.2-1.0); TOTAL PROTEIN 6.7 g/dL (6.4-8.2)
[2018-08-30 15:36] LABS: CARBON DIOXIDE > 45 mmol/L (21-32)
--- NOTE | 2018-08-30 16:32 | PDOC ---
PULMONARY PROGRESS NOTES Vitals Vital Signs Date Time Temp Pulse Resp B/P (MAP) Pulse Ox O2 Delivery O2 Flow Rate FiO2 08/30/18 15:06 91 BiPAP/CPAP 08/30/18 15:00 2.5 08/30/18 14:31 98.4 113 24 124/64 (84) 98.4 General: Alert, No acute distress Lungs: Other Cardiovascular: S1, S2 Abdomen: Soft, Non-tender Extremities: No Edema, Other Labs Laboratory Tests Test 08/30/18 14:40 08/30/18 14:45 White Blood Count 6.5 x10^3/uL (4.0-11.0) Red Blood Count 3.95 x10^6/uL (4.30-5.70) Hemoglobin 12.1 g/dL (13.0-17.5) Hematocrit 36.6 % (39.0-53.0) Mean Corpuscular Volume 93 fL (79-100) Mean Corpuscular Hemoglobin 31 pg (25-35) Mean Corpuscular Hemoglobin Concent 33 g/dL (31-37) Red Cell Distribution Width 15.0 % (11.5-14.5) Platelet Count 225 x10^3/uL (140-400) Neutrophils (%) (Auto) 82 % (31-73) Lymphocytes (%) (Auto) 12 % (24-48) Monocytes (%) (Auto) 5 % (0-9) Eosinophils (%) (Auto) 2 % (0-3) Basophils (%) (Auto) 1 % (0-3) Neutrophils # (Auto) 5.3 x10^3uL (1.8-7.7) Lymphocytes # (Auto) 0.8 x10^3/uL (1.0-4.8) Monocytes # (Auto) 0.3 x10^3/uL (0.0-1.1) Eosinophils # (Auto) 0.1 x10^3/uL (0.0-0.7) Basophils # (Auto) 0.0 x10^3/uL (0.0-0.2) Sodium Level 139 mmol/L (136-145) Potassium Level 4.1 mmol/L (3.5-5.1) Chloride Level 97 mmol/L (98-107) Carbon Dioxide Level > 45 mmol/L (21-32) Anion Gap (6-14) Blood Urea Nitrogen 13 mg/dL (8-26) Creatinine 0.6 mg/dL (0.7-1.3) Estimated GFR (Cockcroft-Gault) 133.6 BUN/Creatinine Ratio 22 (6-20) Glucose Level 213 mg/dL (70-99) Calcium Level 9.3 mg/dL (8.5-10.1) Total Bilirubin 0.3 mg/dL (0.2-1.0) Aspartate Amino Transf (AST/SGOT) 16 U/L (15-37) Alanine Aminotransferase (ALT/SGPT) 23 U/L (16-63) Alkaline Phosphatase 105 U/L (46-116) Troponin I Quantitative < 0.017 ng/mL (0.000-0.055) ON-Qud-J-Type Natriuretic Peptide 39 pg/mL (0-124) Total Protein 6.7 g/dL (6.4-8.2) Albumin 3.4 g/dL (3.4-5.0) Albumin/Globulin Ratio 1.0 (1.0-1.7) O2 Saturation 90 % (92-99) Arterial Blood pH 7.25 (7.35-7.45) Arterial Blood pCO2 at Patient Temp 104 mmHg (35-46) Arterial Blood pO2 at Patient Temp 62 mmHg (65-108) Arterial Blood HCO3 45 mmol/L (21-28) Arterial Blood Base Excess 13 mmol/L (-3-3) FiO2 30% Laboratory Tests Test 08/30/18 14:40 08/30/18 14:45 White Blood Count 6.5 x10^3/uL (4.0-11.0) Red Blood Count 3.95 x10^6/uL (4.30-5.70) Hemoglobin 12.1 g/dL (13.0-17.5) Hematocrit 36.6 % (39.0-53.0) Mean Corpuscular Volume 93 fL (79-100) Mean Corpuscular Hemoglobin 31 pg (25-35) Mean Corpuscular Hemoglobin Concent 33 g/dL (31-37) Red Cell Distribution Width 15.0 % (11.5-14.5) Platelet Count 225 x10^3/uL (140-400) Neutrophils (%) (Auto) 82 % (31-73) Lymphocytes (%) (Auto) 12 % (24-48) Monocytes (%) (Auto) 5 % (0-9) Eosinophils (%) (Auto) 2 % (0-3) Basophils (%) (Auto) 1 % (0-3) Neutrophils # (Auto) 5.3 x10^3uL (1.8-7.7) Lymphocytes # (Auto) 0.8 x10^3/uL (1.0-4.8) Monocytes # (Auto) 0.3 x10^3/uL (0.0-1.1) Eosinophils # (Auto) 0.1 x10^3/uL (0.0-0.7) Basophils # (Auto) 0.0 x10^3/uL (0.0-0.2) Sodium Level 139 mmol/L (136-145) Potassium Level 4.1 mmol/L (3.5-5.1) Chloride Level 97 mmol/L (98-107) Carbon Dioxide Level > 45 mmol/L (21-32) Anion Gap (6-14) Blood Urea Nitrogen 13 mg/dL (8-26) Creatinine 0.6 mg/dL (0.7-1.3) Estimated GFR (Cockcroft-Gault) 133.6 BUN/Creatinine Ratio 22 (6-20) Glucose Level 213 mg/dL (70-99) Calcium Level 9.3 mg/dL (8.5-10.1) Total Bilirubin 0.3 mg/dL (0.2-1.0) Aspartate Amino Transf (AST/SGOT) 16 U/L (15-37) Alanine Aminotransferase (ALT/SGPT) 23 U/L (16-63) Alkaline Phosphatase 105 U/L (46-116) Troponin I Quantitative < 0.017 ng/mL (0.000-0.055) OF-Omv-V-Type Natriuretic Peptide 39 pg/mL (0-124) Total Protein 6.7 g/dL (6.4-8.2) Albumin 3.4 g/dL (3.4-5.0) Albumin/Globulin Ratio 1.0 (1.0-1.7) O2 Saturation 90 % (92-99) Arterial Blood pH 7.25 (7.35-7.45) Arterial Blood pCO2 at Patient Temp 104 mmHg (35-46) Arterial Blood pO2 at Patient Temp 62 mmHg (65-108) Arterial Blood HCO3 45 mmol/L (21-28) Arterial Blood Base Excess 13 mmol/L (-3-3) FiO2 30% Medications Active Scripts Medications Dose Route/Sig Max Daily Dose Days Date Category Advair 500-50 Diskus (Fluticasone/Salmeterol) 1 Each Disk.w.dev 1 Puff IH BID 08/08/18 Rx NICODERM CQ 21mg (Nicotine) 1 Each Patch.td24 1 Patch TP DAILY 08/08/18 Rx Doxycycline Hyclate 100 Mg Tablet 100 Mg PO BID MDD 1 08/08/18 Rx Culturelle (Lactobacillus Rhamnosus Gg) 1 Each Cap.sprink 1 Cap PO BID 14 05/20/18 Rx Simethicone 80 Mg Tab.chew 80 Mg PO PRN AFTMEALHC PRN 14 05/20/18 Rx Senna (Sennosides) 8.6 Mg Tablet 8.6 Mg PO BID 05/18/18 Reported NICODERM CQ 7mg (Nicotine) 1 Each Patch.td24 1 Patch TD DAILY 05/18/18 Reported Maalox Advanced Suspension (Mag Hydrox/Aluminum Hyd/Simeth) 355 Ml Oral.susp 355 Ml PO PRN Q6HRS PRN 05/18/18 Reported Duoneb 0.5-3(2.5) Mg/3 Ml (Albuterol/Ipratropium) 3 Ml Ampul.neb 3 Ml NEB RTQID MDD 1 05/10/18 Rx Protonix (Pantoprazole Sodium) 40 Mg Tablet.dr 40 Mg PO DAILY 11/18/15 Reported Potassium Chloride 10 Meq Capsule.er 10 Meq PO DAILY 11/18/15 Reported Lasix (Furosemide) 20 Mg Tablet 1 Tab PO DAILY 11/18/15 Reported Advair 500-50 Diskus (Fluticasone/Salmeterol) 1 Each Disk.w.dev 1 Puff IH DAILY 10/11/15 Reported Spiriva (Tiotropium [place]) 18 Mcg Cap.w.dev 1 Cap IH DAILY 10/11/15 Reported Flomax (Tamsulosin Hcl) 0.4 Mg Cap.er.24h 1 Cap PO DAILY 10/11/15 Reported Metoprolol Tartrate 25 Mg Tablet 12.5 Mg PO BID 10/11/15 Reported Impression . FULL NOTE DICTATED AECOPD RESP FAILURE MARISABEL PULIDO MD Aug 30, 2018 16:32
--- NOTE | 2018-08-30 17:03 | PDOC1 ---
History and Physical Date of Admission: Date of Admission DATE: 08/30/18 TIME: 17:01 Chief Complaint: Problems: (1) PNA (pneumonia) (2) Pneumonia (3) COPD exacerbation (4) COPD exacerbation (5) Pneumonia (6) COPD (chronic obstructive pulmonary disease) (7) CHF (congestive heart failure) (8) Hypoxia (9) COPD exacerbation (10) Acute and chronic respiratory failure with hypoxia Chief Complain: Shortness of breath History of Present Illness: HPI: This is a pleasant middle-aged male with end-stage COPD who just quit smoking a couple days ago He told me on his last admission he was given a quit smoking but apparently he's been smoking Once again he presents to ER with fulminant respiratory failure We put him on BiPAP Rates his symptoms at 10 out 10 Has associated anxiety Describes as agonizing I discussed the case with ER physician and Dr. Lorenzana of the pulmonary service Patient is being admitted on steroids breathing treatments oxygen and antibiotics Past Medical/Surgical History: PMH/PSH: Past Medical History: Asthma, CHF, COPD, GERD, Hypertension, Pneumonia Additional Past Medical Histor: BPH, home oxygen Past Surgical History: Other Additional Past Surgical Histo: left shoulder rotator cuff repair Alcohol Use: Sober Allergies: Allergies: Coded Allergies: morphine (Verified Allergy, Intermediate, Itching, 07/15/18) Family History: Family History: COPD Social History: Social Hisoty: He states he quit smoking no drinking or drugs Current Medications: Current Medications Current Medications Albuterol/ Ipratropium (Duoneb) 3 ml STK-MED ONCE .ROUTE ; Start 08/30/18 at 14:37; Stop 08/30/18 at 14:38; Status DC Albuterol/ Ipratropium (Duoneb) 3 ml 1X ONCE NEB Last administered on 08/30/18at 14:53; Start 08/30/18 at 15:00; Stop 08/30/18 at 15:01; Status DC Methylprednisolone Sodium Succinate (SOLU-Medrol 125MG VIAL) 125 mg 1X ONCE IV Last administered on 08/30/18at 15:03; Start 08/30/18 at 15:00; Stop 08/30/18 at 15:01; Status DC Sodium Chloride 1,000 ml @ 1,000 mls/hr 1X ONCE IV Last administered on 08/30/18at 15:05; Start 08/30/18 at 15:00; Stop 08/30/18 at 15:59; Status DC Methylprednisolone Sodium Succinate (SOLU-Medrol 125MG VIAL) 80 mg Q8HRS IV ; Start 08/30/18 at 22:00 Active Scripts Active Advair 500-50 Diskus (Fluticasone/Salmeterol) 1 Each Disk.w.dev 1 Puff IH BID NICODERM CQ 21mg (Nicotine) 1 Each Patch.td24 1 Patch TP DAILY Doxycycline Hyclate 100 Mg Tablet 100 Mg PO BID MDD 1 Culturelle (Lactobacillus Rhamnosus Gg) 1 Each Cap.sprink 1 Cap PO BID 14 Days Simethicone 80 Mg Tab.chew 80 Mg PO PRN AFTMEALHC PRN 14 Days Duoneb 0.5-3(2.5) Mg/3 Ml (Albuterol/Ipratropium) 3 Ml Ampul.neb 3 Ml NEB RTQID MDD 1 Reported Senna (Sennosides) 8.6 Mg Tablet 8.6 Mg PO BID NICODERM CQ 7mg (Nicotine) 1 Each Patch.td24 1 Patch TD DAILY Maalox Advanced Suspension (Mag Hydrox/Aluminum Hyd/Simeth) 355 Ml Oral.susp 355 Ml PO PRN Q6HRS PRN Protonix (Pantoprazole Sodium) 40 Mg Tablet.dr 40 Mg PO DAILY Potassium Chloride 10 Meq Capsule.er 10 Meq PO DAILY Lasix (Furosemide) 20 Mg Tablet 1 Tab PO DAILY Advair 500-50 Diskus (Fluticasone/Salmeterol) 1 Each Disk.w.dev 1 Puff IH DAILY Spiriva (Tiotropium [place]) 18 Mcg Cap.w.dev 1 Cap IH DAILY Flomax (Tamsulosin Hcl) 0.4 Mg Cap.er.24h 1 Cap PO DAILY Metoprolol Tartrate 25 Mg Tablet 12.5 Mg PO BID ROS: Review of Systems Review of System REVIEW OF SYSTEMS: GENERAL: Denies weakness SKIN: No bruising, hair changes or rashes. EYES: No blurred, double or loss of vision. NOSE AND THROAT: No history of nosebleeds, hoarseness or sore throat. HEART: No history of palpitations, chest pain or shortness of breath on exertion. LUNGS: Denies cough, hemoptysis, wheezing or shortness of breath. GASTROINTESTINAL: Denies changes in appetite, nausea, vomiting, diarrhea or constipation. GENITOURINARY: No history of frequency, urgency, hesitancy or nocturia. NEUROLOGIC: Denies history of numbness, tingling, tremor or weakness. PSYCHIATRIC: No history of panic, anxiety or depression. ENDOCRINE: No history of heat or cold intolerance, polyuria or polydipsia. EXTREMITIES: Denies muscle weakness, joint pain, pain on walking or stiffness. Physical Exam: Vital Signs: Vital Signs Date Time Temp Pulse Resp B/P (MAP) Pulse Ox O2 Delivery O2 Flow Rate FiO2 08/30/18 16:30 91 BiPAP/CPAP 08/30/18 15:00 2.5 08/30/18 14:31 98.4 113 24 124/64 (84) 98.4 Physcial Exam: GEN.: No apparent distress. Alert and oriented. HEENT: Head is normocephalic, atraumatic NECK: Supple, no JVD LUNGS: Clear to auscultation without rhonchi or wheezing HEART: RRR, S1, S2 present. Peripheral pulses intact ABDOMEN: Soft, nontender. Positive bowel sounds no organomegaly EXTREMITIES: Without any cyanosis, clubbing, or edema. Pedal pulses intact NEUROLOGIC: Normal speech, normal tone. A&O x 3 PSYCHIATRIC: Normal affect, normal mood. Stable SKIN: No ulcerations or rashes VASCULAR: Good capillary refill Labs: Labs: Laboratory Tests Test 08/30/18 14:40 08/30/18 14:45 White Blood Count 6.5 x10^3/uL (4.0-11.0) Red Blood Count 3.95 x10^6/uL (4.30-5.70) Hemoglobin 12.1 g/dL (13.0-17.5) Hematocrit 36.6 % (39.0-53.0) Mean Corpuscular Volume 93 fL (79-100) Mean Corpuscular Hemoglobin 31 pg (25-35) Mean Corpuscular Hemoglobin Concent 33 g/dL (31-37) Red Cell Distribution Width 15.0 % (11.5-14.5) Platelet Count 225 x10^3/uL (140-400) Neutrophils (%) (Auto) 82 % (31-73) Lymphocytes (%) (Auto) 12 % (24-48) Monocytes (%) (Auto) 5 % (0-9) Eosinophils (%) (Auto) 2 % (0-3) Basophils (%) (Auto) 1 % (0-3) Neutrophils # (Auto) 5.3 x10^3uL (1.8-7.7) Lymphocytes # (Auto) 0.8 x10^3/uL (1.0-4.8) Monocytes # (Auto) 0.3 x10^3/uL (0.0-1.1) Eosinophils # (Auto) 0.1 x10^3/uL (0.0-0.7) Basophils # (Auto) 0.0 x10^3/uL (0.0-0.2) Sodium Level 139 mmol/L (136-145) Potassium Level 4.1 mmol/L (3.5-5.1) Chloride Level 97 mmol/L (98-107) Carbon Dioxide Level > 45 mmol/L (21-32) Anion Gap (6-14) Blood Urea Nitrogen 13 mg/dL (8-26) Creatinine 0.6 mg/dL (0.7-1.3) Estimated GFR (Cockcroft-Gault) 133.6 BUN/Creatinine Ratio 22 (6-20) Glucose Level 213 mg/dL (70-99) Calcium Level 9.3 mg/dL (8.5-10.1) Total Bilirubin 0.3 mg/dL (0.2-1.0) Aspartate Amino Transf (AST/SGOT) 16 U/L (15-37) Alanine Aminotransferase (ALT/SGPT) 23 U/L (16-63) Alkaline Phosphatase 105 U/L (46-116) Troponin I Quantitative < 0.017 ng/mL (0.000-0.055) YJ-Ddi-T-Type Natriuretic Peptide 39 pg/mL (0-124) Total Protein 6.7 g/dL (6.4-8.2) Albumin 3.4 g/dL (3.4-5.0) Albumin/Globulin Ratio 1.0 (1.0-1.7) O2 Saturation 90 % (92-99) Arterial Blood pH 7.25 (7.35-7.45) Arterial Blood pCO2 at Patient Temp 104 mmHg (35-46) Arterial Blood pO2 at Patient Temp 62 mmHg (65-108) Arterial Blood HCO3 45 mmol/L (21-28) Arterial Blood Base Excess 13 mmol/L (-3-3) FiO2 30% Laboratory Tests Test 08/30/18 14:40 08/30/18 14:45 White Blood Count 6.5 x10^3/uL (4.0-11.0) Red Blood Count 3.95 x10^6/uL (4.30-5.70) Hemoglobin 12.1 g/dL (13.0-17.5) Hematocrit 36.6 % (39.0-53.0) Mean Corpuscular Volume 93 fL (79-100) Mean Corpuscular Hemoglobin 31 pg (25-35) Mean Corpuscular Hemoglobin Concent 33 g/dL (31-37) Red Cell Distribution Width 15.0 % (11.5-14.5) Platelet Count 225 x10^3/uL (140-400) Neutrophils (%) (Auto) 82 % (31-73) Lymphocytes (%) (Auto) 12 % (24-48) Monocytes (%) (Auto) 5 % (0-9) Eosinophils (%) (Auto) 2 % (0-3) Basophils (%) (Auto) 1 % (0-3) Neutrophils # (Auto) 5.3 x10^3uL (1.8-7.7) Lymphocytes # (Auto) 0.8 x10^3/uL (1.0-4.8) Monocytes # (Auto) 0.3 x10^3/uL (0.0-1.1) Eosinophils # (Auto) 0.1 x10^3/uL (0.0-0.7) Basophils # (Auto) 0.0 x10^3/uL (0.0-0.2) Sodium Level 139 mmol/L (136-145) Potassium Level 4.1 mmol/L (3.5-5.1) Chloride Level 97 mmol/L (98-107) Carbon Dioxide Level > 45 mmol/L (21-32) Anion Gap (6-14) Blood Urea Nitrogen 13 mg/dL (8-26) Creatinine 0.6 mg/dL (0.7-1.3) Estimated GFR (Cockcroft-Gault) 133.6 BUN/Creatinine Ratio 22 (6-20) Glucose Level 213 mg/dL (70-99) Calcium Level 9.3 mg/dL (8.5-10.1) Total Bilirubin 0.3 mg/dL (0.2-1.0) Aspartate Amino Transf (AST/SGOT) 16 U/L (15-37) Alanine Aminotransferase (ALT/SGPT) 23 U/L (16-63) Alkaline Phosphatase 105 U/L (46-116) Troponin I Quantitative < 0.017 ng/mL (0.000-0.055) FL-Yyn-R-Type Natriuretic Peptide 39 pg/mL (0-124) Total Protein 6.7 g/dL (6.4-8.2) Albumin 3.4 g/dL (3.4-5.0) Albumin/Globulin Ratio 1.0 (1.0-1.7) O2 Saturation 90 % (92-99) Arterial Blood pH 7.25 (7.35-7.45) Arterial Blood pCO2 at Patient Temp 104 mmHg (35-46) Arterial Blood pO2 at Patient Temp 62 mmHg (65-108) Arterial Blood HCO3 45 mmol/L (21-28) Arterial Blood Base Excess 13 mmol/L (-3-3) FiO2 30% Images: Images Chest x-ray does not show any acute changes Assessment/Plan Assessment/Plan Fulminant restaurant failure secondary to end-stage COPD Plan IV steroids BiPAP IV antibiotics Duo nebs DVT prophylaxis Full code Cardiac monitoring Prognosis guarded He is critically ill Total time 32 minutes ANÍBAL BAUTISTA III DO Aug 30, 2018 17:03
[2018-08-30 19:25] VITALS: BP 121/66
[2018-08-30] MEDS ORDERED: NON FORMULARY ITEM (Fluticasone/Salmeterol (Advair 500-50 Diskus) 1 PUFF) IH SCH (21:00)
[2018-08-30] MEDS: SENNOSIDES 8.6 MG TABLET PO SCH (21:31)
[2018-08-30] MEDS: BENZONATATE 100 MG CAPSULE. PO SCH (21:31)
[2018-08-30] MEDS: methylPREDNISolone SOD SUCC PF 125 MG/2 ML VIAL. IV SCH (21:32)
[2018-08-30] MEDS: METOPROLOL TART IMMED RELEASE 25 MG TABLET. PO SCH (21:32)
[2018-08-30] MEDS: BUDESONIDE 0.5 MG/2 ML NEBU. NEB SCH (23:45)
[2018-08-30] MEDS: IPRATRPIUM/ALBUTEROL 0.5/2.5MG 3 ML NEBU. NEB SCH (23:45)
[2018-08-30 23:55] VITALS: BP 114/51
--- NOTE | 2018-08-31 01:21 | CONS ---
DATE OF CONSULTATION: 08/30/2018 ATTENDING PHYSICIAN: Dr. Cutler. REASON FOR CONSULTATION: The patient is seen in pulmonary consultation at the request of Dr. Cutler for acute on chronic respiratory failure, hypercapnia. Arterial blood gas revealing a pH of 7.25, pCO2 of 104, pO2 of 62. HISTORY OF PRESENT ILLNESS: The patient is a 68-year-old, with chronic hypercapnic hypoxemic respiratory failure, who presented with increasing shortness of breath. He continues to smoke. He states he quit a few days ago and has home oxygen at 2 liters per nasal cannula. He was having increasing difficulty breathing. EMS was summoned. They placed him on CPAP. He was admitted in the Emergency Room. He also had a cough productive of green sputum. Denies fever or chills. I went to see him while he was in the Emergency Room on BiPAP. I reviewed his x-ray, which revealed no acute process. PAST MEDICAL HISTORY: Otherwise remarkable for acute on chronic respiratory failure. We have seen him in the past. SOCIAL HISTORY: The patient once again continues to smoke despite our efforts to stress the importance of discontinuing tobacco use. He has a history of gastroesophageal reflux, benign prostatic hypertrophy. SOCIAL HISTORY: He denies any consumption of alcohol. He continues to smoke. FAMILY HISTORY: No family history of lung disorders. ALLERGIES: MORPHINE. REVIEW OF SYSTEMS: Unobtainable secondary to the patient's condition, he is on BiPAP. MEDICATIONS: Current medication list was reviewed. Home medication list was reviewed. PHYSICAL EXAMINATION: VITAL SIGNS: Stable. He was on BiPAP in the Emergency Room. HEENT: Eyes, the sclerae were nonicteric. NECK: Jugular venous distention could not be assessed secondary to BiPAP being in place. CHEST: Full expansion. LUNGS: Poor airway flow, no wheezes. CARDIOVASCULAR: Regular rate and rhythm with S1, S2, no S3. ABDOMEN: Soft, nontender, nondistended. EXTREMITIES: No clubbing, cyanosis or edema. NEUROLOGIC: The patient was awake, alert, following commands. A detailed neuro exam was not performed. LABORATORY DATA: Reviewed. White count was normal. Hemoglobin and hematocrit were noted. Arterial blood gas as indicated above. Last time he was discharged, his pCO2 was 74. White count was normal. Hemoglobin and hematocrit were noted. Chest x-ray as indicated above. IMPRESSION: 1. Acute on chronic hypoxemic hypercapnic respiratory failure. 2. Acute exacerbation of chronic obstructive pulmonary disease. 3. Tobacco dependent. 4. Gastroesophageal reflux. 5. Hypertension. PLAN: 1. Continue BiPAP. 2. IV steroids. 3. No need for antibiotics. 4. Nebulized treatments. 5. Nicotine replacement once discharged. 6. The patient instructed on the importance of discontinuing tobacco use. I do appreciate the privilege in sharing in the patient's care. MARISABEL PULIDO MD DR: ROBERT/joshua JOB#: [id number] / [id number]
[2018-08-31 03:38] VITALS: BP 119/62
[2018-08-31] MEDS: methylPREDNISolone SOD SUCC PF 125 MG/2 ML VIAL. IV SCH ×3 (05:54→20:25)
[2018-08-31 07:00] VITALS: BP 115/56
[2018-08-31] MEDS: BUDESONIDE 0.5 MG/2 ML NEBU. NEB SCH ×2 (08:00→19:55)
[2018-08-31] MEDS: IPRATRPIUM/ALBUTEROL 0.5/2.5MG 3 ML NEBU. NEB SCH ×4 (08:32→19:55)
--- NOTE | 2018-08-31 08:45 | PDOC ---
PULMONARY PROGRESS NOTES Subjective PT STILL SOA UNABLE TO WALK IN ROOM Vitals Vital Signs Date Time Temp Pulse Resp B/P (MAP) Pulse Ox O2 Delivery O2 Flow Rate FiO2 08/31/18 08:37 95 Nasal Cannula 3.0 08/31/18 03:38 97.4 86 20 119/62 (81) 97.4 ROS: No Nausea, No Chest Pain, No Abdominal Pain, No Increase Cough (VERY POOR AIRFLOW) General: Alert, No acute distress Lungs: Other Cardiovascular: S1, S2 Abdomen: Soft, Non-tender Neuro Exam: Alert Extremities: No Edema, Other Skin: Warm Labs Laboratory Tests Test 08/30/18 14:40 08/30/18 14:45 White Blood Count 6.5 x10^3/uL (4.0-11.0) Red Blood Count 3.95 x10^6/uL (4.30-5.70) Hemoglobin 12.1 g/dL (13.0-17.5) Hematocrit 36.6 % (39.0-53.0) Mean Corpuscular Volume 93 fL (79-100) Mean Corpuscular Hemoglobin 31 pg (25-35) Mean Corpuscular Hemoglobin Concent 33 g/dL (31-37) Red Cell Distribution Width 15.0 % (11.5-14.5) Platelet Count 225 x10^3/uL (140-400) Neutrophils (%) (Auto) 82 % (31-73) Lymphocytes (%) (Auto) 12 % (24-48) Monocytes (%) (Auto) 5 % (0-9) Eosinophils (%) (Auto) 2 % (0-3) Basophils (%) (Auto) 1 % (0-3) Neutrophils # (Auto) 5.3 x10^3uL (1.8-7.7) Lymphocytes # (Auto) 0.8 x10^3/uL (1.0-4.8) Monocytes # (Auto) 0.3 x10^3/uL (0.0-1.1) Eosinophils # (Auto) 0.1 x10^3/uL (0.0-0.7) Basophils # (Auto) 0.0 x10^3/uL (0.0-0.2) Sodium Level 139 mmol/L (136-145) Potassium Level 4.1 mmol/L (3.5-5.1) Chloride Level 97 mmol/L (98-107) Carbon Dioxide Level > 45 mmol/L (21-32) Anion Gap (6-14) Blood Urea Nitrogen 13 mg/dL (8-26) Creatinine 0.6 mg/dL (0.7-1.3) Estimated GFR (Cockcroft-Gault) 133.6 BUN/Creatinine Ratio 22 (6-20) Glucose Level 213 mg/dL (70-99) Calcium Level 9.3 mg/dL (8.5-10.1) Total Bilirubin 0.3 mg/dL (0.2-1.0) Aspartate Amino Transf (AST/SGOT) 16 U/L (15-37) Alanine Aminotransferase (ALT/SGPT) 23 U/L (16-63) Alkaline Phosphatase 105 U/L (46-116) Troponin I Quantitative < 0.017 ng/mL (0.000-0.055) WG-Fqi-O-Type Natriuretic Peptide 39 pg/mL (0-124) Total Protein 6.7 g/dL (6.4-8.2) Albumin 3.4 g/dL (3.4-5.0) Albumin/Globulin Ratio 1.0 (1.0-1.7) O2 Saturation 90 % (92-99) Arterial Blood pH 7.25 (7.35-7.45) Arterial Blood pCO2 at Patient Temp 104 mmHg (35-46) Arterial Blood pO2 at Patient Temp 62 mmHg (65-108) Arterial Blood HCO3 45 mmol/L (21-28) Arterial Blood Base Excess 13 mmol/L (-3-3) FiO2 30% Laboratory Tests Test 08/30/18 14:40 08/30/18 14:45 White Blood Count 6.5 x10^3/uL (4.0-11.0) Red Blood Count 3.95 x10^6/uL (4.30-5.70) Hemoglobin 12.1 g/dL (13.0-17.5) Hematocrit 36.6 % (39.0-53.0) Mean Corpuscular Volume 93 fL (79-100) Mean Corpuscular Hemoglobin 31 pg (25-35) Mean Corpuscular Hemoglobin Concent 33 g/dL (31-37) Red Cell Distribution Width 15.0 % (11.5-14.5) Platelet Count 225 x10^3/uL (140-400) Neutrophils (%) (Auto) 82 % (31-73) Lymphocytes (%) (Auto) 12 % (24-48) Monocytes (%) (Auto) 5 % (0-9) Eosinophils (%) (Auto) 2 % (0-3) Basophils (%) (Auto) 1 % (0-3) Neutrophils # (Auto) 5.3 x10^3uL (1.8-7.7) Lymphocytes # (Auto) 0.8 x10^3/uL (1.0-4.8) Monocytes # (Auto) 0.3 x10^3/uL (0.0-1.1) Eosinophils # (Auto) 0.1 x10^3/uL (0.0-0.7) Basophils # (Auto) 0.0 x10^3/uL (0.0-0.2) Sodium Level 139 mmol/L (136-145) Potassium Level 4.1 mmol/L (3.5-5.1) Chloride Level 97 mmol/L (98-107) Carbon Dioxide Level > 45 mmol/L (21-32) Anion Gap (6-14) Blood Urea Nitrogen 13 mg/dL (8-26) Creatinine 0.6 mg/dL (0.7-1.3) Estimated GFR (Cockcroft-Gault) 133.6 BUN/Creatinine Ratio 22 (6-20) Glucose Level 213 mg/dL (70-99) Calcium Level 9.3 mg/dL (8.5-10.1) Total Bilirubin 0.3 mg/dL (0.2-1.0) Aspartate Amino Transf (AST/SGOT) 16 U/L (15-37) Alanine Aminotransferase (ALT/SGPT) 23 U/L (16-63) Alkaline Phosphatase 105 U/L (46-116) Troponin I Quantitative < 0.017 ng/mL (0.000-0.055) YC-Fgg-N-Type Natriuretic Peptide 39 pg/mL (0-124) Total Protein 6.7 g/dL (6.4-8.2) Albumin 3.4 g/dL (3.4-5.0) Albumin/Globulin Ratio 1.0 (1.0-1.7) O2 Saturation 90 % (92-99) Arterial Blood pH 7.25 (7.35-7.45) Arterial Blood pCO2 at Patient Temp 104 mmHg (35-46) Arterial Blood pO2 at Patient Temp 62 mmHg (65-108) Arterial Blood HCO3 45 mmol/L (21-28) Arterial Blood Base Excess 13 mmol/L (-3-3) FiO2 30% Medications Active Scripts Medications Dose Route/Sig Max Daily Dose Days Date Category Advair 500-50 Diskus (Fluticasone/Salmeterol) 1 Each Disk.w.dev 1 Puff IH BID 08/08/18 Rx NICODERM CQ 21mg (Nicotine) 1 Each Patch.td24 1 Patch TP DAILY 08/08/18 Rx Doxycycline Hyclate 100 Mg Tablet 100 Mg PO BID MDD 1 08/08/18 Rx Culturelle (Lactobacillus Rhamnosus Gg) 1 Each Cap.sprink 1 Cap PO BID 14 05/20/18 Rx Simethicone 80 Mg Tab.chew 80 Mg PO PRN AFTMEALHC PRN 14 05/20/18 Rx Senna (Sennosides) 8.6 Mg Tablet 8.6 Mg PO BID 05/18/18 Reported NICODERM CQ 7mg (Nicotine) 1 Each Patch.td24 1 Patch TD DAILY 05/18/18 Reported Maalox Advanced Suspension (Mag Hydrox/Aluminum Hyd/Simeth) 355 Ml Oral.susp 355 Ml PO PRN Q6HRS PRN 05/18/18 Reported Duoneb 0.5-3(2.5) Mg/3 Ml (Albuterol/Ipratropium) 3 Ml Ampul.neb 3 Ml NEB RTQID MDD 1 05/10/18 Rx Protonix (Pantoprazole Sodium) 40 Mg Tablet.dr 40 Mg PO DAILY 11/18/15 Reported Potassium Chloride 10 Meq Capsule.er 10 Meq PO DAILY 11/18/15 Reported Lasix (Furosemide) 20 Mg Tablet 1 Tab PO DAILY 11/18/15 Reported Advair 500-50 Diskus (Fluticasone/Salmeterol) 1 Each Disk.w.dev 1 Puff IH DAILY 10/11/15 Reported Spiriva (Tiotropium [place]) 18 Mcg Cap.w.dev 1 Cap IH DAILY 10/11/15 Reported Flomax (Tamsulosin Hcl) 0.4 Mg Cap.er.24h 1 Cap PO DAILY 10/11/15 Reported Metoprolol Tartrate 25 Mg Tablet 12.5 Mg PO BID 10/11/15 Reported Impression . IMPRESSION: 1. Acute on chronic hypoxemic hypercapnic respiratory failure. 2. Acute exacerbation of chronic obstructive pulmonary disease. 3. Tobacco dependent. 4. Gastroesophageal reflux. 5. Hypertension. Plan . WILL CONTINUE BIPAP D/C SMOKING PT VERY SOA CONTINUE THE SAME 1. Continue BiPAP. 2. IV steroids. 3. No need for antibiotics. 4. Nebulized treatments. 5. Nicotine replacement once discharged. 6. The patient instructed on the importance of discontinuing tobacco use. MARISABEL PULIDO MD Aug 31, 2018 08:45
[2018-08-31] MEDS: PANTOPRAZOLE 40 MG TABLET.DR. PO SCH (08:57)
[2018-08-31] MEDS: FUROSEMIDE 20 MG TABLET PO SCH (08:57)
[2018-08-31] MEDS: TAMSULOSIN 0.4 MG CAP.ER.24H. PO SCH (08:57)
[2018-08-31] MEDS: BENZONATATE 100 MG CAPSULE. PO SCH ×3 (08:57→20:25)
[2018-08-31] MEDS: SENNOSIDES 8.6 MG TABLET PO SCH ×2 (08:58→20:25)
[2018-08-31] MEDS: METOPROLOL TART IMMED RELEASE 25 MG TABLET. PO SCH ×2 (08:59→20:27)
[2018-08-31] MEDS: POTASSIUM CHLORIDE 10 MEQ TABLET.ER. PO SCH (08:59)
[2018-08-31] MEDS: NICOTINE 7MG PATCH. TD SCH (09:01)
--- NOTE | 2018-08-31 10:29 | PDOC ---
[facility] PROGRESS NOTE Chief Complaint Chief Complaint Hypercapnic respiratory failure. Chronic obstructive pulmonary disease. Tobacco dependent. Gastroesophageal reflux. Hypertension. History of Present Illness History of Present Illness Pt seen and examined DW RN and case mgmt Reviewed notes Vitals Vitals Vital Signs Date Time Temp Pulse Resp B/P (MAP) Pulse Ox O2 Delivery O2 Flow Rate FiO2 08/31/18 08:59 100 115/56 08/31/18 08:37 95 Nasal Cannula 3.0 08/31/18 07:00 98.1 20 98.1 Physical Exam General: Alert, Oriented X3 Heart: Regular rate, Normal S1, Normal S2 Lungs: Wheezing, Crackles, Other Abdomen: Normal bowel sounds, Soft Extremities: No clubbing, No cyanosis Skin: No rashes Labs Labs: Laboratory Tests Test 08/30/18 14:40 08/30/18 14:45 White Blood Count 6.5 x10^3/uL (4.0-11.0) Red Blood Count 3.95 x10^6/uL (4.30-5.70) Hemoglobin 12.1 g/dL (13.0-17.5) Hematocrit 36.6 % (39.0-53.0) Mean Corpuscular Volume 93 fL (79-100) Mean Corpuscular Hemoglobin 31 pg (25-35) Mean Corpuscular Hemoglobin Concent 33 g/dL (31-37) Red Cell Distribution Width 15.0 % (11.5-14.5) Platelet Count 225 x10^3/uL (140-400) Neutrophils (%) (Auto) 82 % (31-73) Lymphocytes (%) (Auto) 12 % (24-48) Monocytes (%) (Auto) 5 % (0-9) Eosinophils (%) (Auto) 2 % (0-3) Basophils (%) (Auto) 1 % (0-3) Neutrophils # (Auto) 5.3 x10^3uL (1.8-7.7) Lymphocytes # (Auto) 0.8 x10^3/uL (1.0-4.8) Monocytes # (Auto) 0.3 x10^3/uL (0.0-1.1) Eosinophils # (Auto) 0.1 x10^3/uL (0.0-0.7) Basophils # (Auto) 0.0 x10^3/uL (0.0-0.2) Sodium Level 139 mmol/L (136-145) Potassium Level 4.1 mmol/L (3.5-5.1) Chloride Level 97 mmol/L (98-107) Carbon Dioxide Level > 45 mmol/L (21-32) Anion Gap (6-14) Blood Urea Nitrogen 13 mg/dL (8-26) Creatinine 0.6 mg/dL (0.7-1.3) Estimated GFR (Cockcroft-Gault) 133.6 BUN/Creatinine Ratio 22 (6-20) Glucose Level 213 mg/dL (70-99) Calcium Level 9.3 mg/dL (8.5-10.1) Total Bilirubin 0.3 mg/dL (0.2-1.0) Aspartate Amino Transf (AST/SGOT) 16 U/L (15-37) Alanine Aminotransferase (ALT/SGPT) 23 U/L (16-63) Alkaline Phosphatase 105 U/L (46-116) Troponin I Quantitative < 0.017 ng/mL (0.000-0.055) YO-App-B-Type Natriuretic Peptide 39 pg/mL (0-124) Total Protein 6.7 g/dL (6.4-8.2) Albumin 3.4 g/dL (3.4-5.0) Albumin/Globulin Ratio 1.0 (1.0-1.7) O2 Saturation 90 % (92-99) Arterial Blood pH 7.25 (7.35-7.45) Arterial Blood pCO2 at Patient Temp 104 mmHg (35-46) Arterial Blood pO2 at Patient Temp 62 mmHg (65-108) Arterial Blood HCO3 45 mmol/L (21-28) Arterial Blood Base Excess 13 mmol/L (-3-3) FiO2 30% Assessment and Plan Assessmemt and Plan Problems Medical Problems: (1) Acute and chronic respiratory failure with hypoxia Status: Acute (2) COPD exacerbation Status: Acute Hypercapnic respiratory failure. End stage Chronic obstructive pulmonary disease. Tobacco dependent. Gastroesophageal reflux. Hypertension. Plan Steroids Nebs O2 Home meds Consult cards Pulm following DVT proph care home prog guarded Comment Review of Relevant I have reviewed the following items zaire (where applicable) has been applied. Labs Laboratory Tests Test 08/30/18 14:40 08/30/18 14:45 White Blood Count 6.5 x10^3/uL (4.0-11.0) Red Blood Count 3.95 x10^6/uL (4.30-5.70) Hemoglobin 12.1 g/dL (13.0-17.5) Hematocrit 36.6 % (39.0-53.0) Mean Corpuscular Volume 93 fL (79-100) Mean Corpuscular Hemoglobin 31 pg (25-35) Mean Corpuscular Hemoglobin Concent 33 g/dL (31-37) Red Cell Distribution Width 15.0 % (11.5-14.5) Platelet Count 225 x10^3/uL (140-400) Neutrophils (%) (Auto) 82 % (31-73) Lymphocytes (%) (Auto) 12 % (24-48) Monocytes (%) (Auto) 5 % (0-9) Eosinophils (%) (Auto) 2 % (0-3) Basophils (%) (Auto) 1 % (0-3) Neutrophils # (Auto) 5.3 x10^3uL (1.8-7.7) Lymphocytes # (Auto) 0.8 x10^3/uL (1.0-4.8) Monocytes # (Auto) 0.3 x10^3/uL (0.0-1.1) Eosinophils # (Auto) 0.1 x10^3/uL (0.0-0.7) Basophils # (Auto) 0.0 x10^3/uL (0.0-0.2) Sodium Level 139 mmol/L (136-145) Potassium Level 4.1 mmol/L (3.5-5.1) Chloride Level 97 mmol/L (98-107) Carbon Dioxide Level > 45 mmol/L (21-32) Anion Gap (6-14) Blood Urea Nitrogen 13 mg/dL (8-26) Creatinine 0.6 mg/dL (0.7-1.3) Estimated GFR (Cockcroft-Gault) 133.6 BUN/Creatinine Ratio 22 (6-20) Glucose Level 213 mg/dL (70-99) Calcium Level 9.3 mg/dL (8.5-10.1) Total Bilirubin 0.3 mg/dL (0.2-1.0) Aspartate Amino Transf (AST/SGOT) 16 U/L (15-37) Alanine Aminotransferase (ALT/SGPT) 23 U/L (16-63) Alkaline Phosphatase 105 U/L (46-116) Troponin I Quantitative < 0.017 ng/mL (0.000-0.055) UI-Jwb-M-Type Natriuretic Peptide 39 pg/mL (0-124) Total Protein 6.7 g/dL (6.4-8.2) Albumin 3.4 g/dL (3.4-5.0) Albumin/Globulin Ratio 1.0 (1.0-1.7) O2 Saturation 90 % (92-99) Arterial Blood pH 7.25 (7.35-7.45) Arterial Blood pCO2 at Patient Temp 104 mmHg (35-46) Arterial Blood pO2 at Patient Temp 62 mmHg (65-108) Arterial Blood HCO3 45 mmol/L (21-28) Arterial Blood Base Excess 13 mmol/L (-3-3) FiO2 30% Laboratory Tests Test 08/30/18 14:40 08/30/18 14:45 White Blood Count 6.5 x10^3/uL (4.0-11.0) Red Blood Count 3.95 x10^6/uL (4.30-5.70) Hemoglobin 12.1 g/dL (13.0-17.5) Hematocrit 36.6 % (39.0-53.0) Mean Corpuscular Volume 93 fL (79-100) Mean Corpuscular Hemoglobin 31 pg (25-35) Mean Corpuscular Hemoglobin Concent 33 g/dL (31-37) Red Cell Distribution Width 15.0 % (11.5-14.5) Platelet Count 225 x10^3/uL (140-400) Neutrophils (%) (Auto) 82 % (31-73) Lymphocytes (%) (Auto) 12 % (24-48) Monocytes (%) (Auto) 5 % (0-9) Eosinophils (%) (Auto) 2 % (0-3) Basophils (%) (Auto) 1 % (0-3) Neutrophils # (Auto) 5.3 x10^3uL (1.8-7.7) Lymphocytes # (Auto) 0.8 x10^3/uL (1.0-4.8) Monocytes # (Auto) 0.3 x10^3/uL (0.0-1.1) Eosinophils # (Auto) 0.1 x10^3/uL (0.0-0.7) Basophils # (Auto) 0.0 x10^3/uL (0.0-0.2) Sodium Level 139 mmol/L (136-145) Potassium Level 4.1 mmol/L (3.5-5.1) Chloride Level 97 mmol/L (98-107) Carbon Dioxide Level > 45 mmol/L (21-32) Anion Gap (6-14) Blood Urea Nitrogen 13 mg/dL (8-26) Creatinine 0.6 mg/dL (0.7-1.3) Estimated GFR (Cockcroft-Gault) 133.6 BUN/Creatinine Ratio 22 (6-20) Glucose Level 213 mg/dL (70-99) Calcium Level 9.3 mg/dL (8.5-10.1) Total Bilirubin 0.3 mg/dL (0.2-1.0) Aspartate Amino Transf (AST/SGOT) 16 U/L (15-37) Alanine Aminotransferase (ALT/SGPT) 23 U/L (16-63) Alkaline Phosphatase 105 U/L (46-116) Troponin I Quantitative < 0.017 ng/mL (0.000-0.055) NV-Qsx-T-Type Natriuretic Peptide 39 pg/mL (0-124) Total Protein 6.7 g/dL (6.4-8.2) Albumin 3.4 g/dL (3.4-5.0) Albumin/Globulin Ratio 1.0 (1.0-1.7) O2 Saturation 90 % (92-99) Arterial Blood pH 7.25 (7.35-7.45) Arterial Blood pCO2 at Patient Temp 104 mmHg (35-46) Arterial Blood pO2 at Patient Temp 62 mmHg (65-108) Arterial Blood HCO3 45 mmol/L (21-28) Arterial Blood Base Excess 13 mmol/L (-3-3) FiO2 30% Medications Current Medications Albuterol/ Ipratropium (Duoneb) 3 ml STK-MED ONCE .ROUTE ; Start 08/30/18 at 14:37; Stop 08/30/18 at 14:38; Status DC Albuterol/ Ipratropium (Duoneb) 3 ml 1X ONCE NEB Last administered on 08/30/18at 14:53; Start 08/30/18 at 15:00; Stop 08/30/18 at 15:01; Status DC Methylprednisolone Sodium Succinate (SOLU-Medrol 125MG VIAL) 125 mg 1X ONCE IV Last administered on 08/30/18at 15:03; Start 08/30/18 at 15:00; Stop 08/30/18 at 15:01; Status DC Sodium Chloride 1,000 ml @ 1,000 mls/hr 1X ONCE IV Last administered on 08/30/18at 15:05; Start 08/30/18 at 15:00; Stop 08/30/18 at 15:59; Status DC Methylprednisolone Sodium Succinate (SOLU-Medrol 125MG VIAL) 80 mg Q8HRS IV Last administered on 08/31/18at 05:54; Start 08/30/18 at 22:00 Furosemide (Lasix) 20 mg DAILY PO Last administered on 08/31/18at 08:57; Start 08/31/18 at 09:00 Albuterol/ Ipratropium (Duoneb) 3 ml RTQID NEB Last administered on 08/31/18at 08:32; Start 08/30/18 at 20:00 Metoprolol Tartrate (Lopressor) 12.5 mg BID PO Last administered on 08/31/18at 08:59; Start 08/30/18 at 21:00 Pantoprazole Sodium (Protonix) 40 mg DAILY PO Last administered on 08/31/18 08:57; Start 08/31/18 at 09:00 Potassium Chloride (Klor-Con) 10 meq [id number] PO Last administered on 08/31/18 08:59; Start 08/31/18 at 08:00 Tamsulosin HCl (Flomax) 0.4 mg DAILY PO Last administered on 08/31/18at 08:57; Start 08/31/18 at 09:00 Non-Formulary Medication (Fluticasone/ Salmeterol (Advair 500-50 Diskus)) 1 puff BID IH ; Start 08/30/18 at 21:00; Status UNV Al Hydroxide/Mg Hydroxide (Mylanta Plus Xs) 30 ml PRN Q6HRS PRN PO HEARTBURN / GAS; Start 08/30/18 at 20:30 Nicotine (Nicoderm Cq 7mg) 1 patch DAILY TD Last administered on 08/31/18at 09:01; Start 08/31/18 at 09:00 Sennosides (Senna) 8.6 mg BID PO Last administered on 08/31/18at 08:58; Start 08/30/18 at 21:00 Benzonatate (Tessalon Perle) 100 mg [id number] PO Last administered on 08/31/18at 08:57; Start 08/30/18 at 21:00 Budesonide (Pulmicort) 0.5 mg RTBID NEB Last administered on 08/31/18at 08:00; Start 08/30/18 at 22:00 Guaifenesin/ Codeine Phosphate (Robitussin Ac) 5 ml PRN Q4HRS PRN PO COUGH; Start 08/31/18 at 09:45 Active Scripts Active Advair 500-50 Diskus (Fluticasone/Salmeterol) 1 Each Disk.w.dev 1 Puff IH BID Duoneb 0.5-3(2.5) Mg/3 Ml (Albuterol/Ipratropium) 3 Ml Ampul.neb 3 Ml NEB RTQID MDD 1 Reported Senna (Sennosides) 8.6 Mg Tablet 8.6 Mg PO BID NICODERM CQ 7mg (Nicotine) 1 Each Patch.td24 1 Patch TD DAILY Maalox Advanced Suspension (Mag Hydrox/Aluminum Hyd/Simeth) 355 Ml Oral.susp 355 Ml PO PRN Q6HRS PRN Protonix (Pantoprazole Sodium) 40 Mg Tablet.dr 40 Mg PO DAILY Potassium Chloride 10 Meq Capsule.er 10 Meq PO DAILY Lasix (Furosemide) 20 Mg Tablet 1 Tab PO DAILY Flomax (Tamsulosin Hcl) 0.4 Mg Cap.er.24h 1 Cap PO DAILY Metoprolol Tartrate 25 Mg Tablet 12.5 Mg PO BID Vitals/I & O Vital Sign - Last 24 Hours 08/30/18 08/30/18 08/30/18 08/30/18 14:31 14:39 15:00 15:06 Temp 98.4 98.4 Pulse 113 Resp 24 B/P (MAP) 124/64 (84) Pulse Ox 93 94 89 91 O2 Delivery Nasal Cannula Nasal Cannula Nasal Cannula BiPAP/CPAP O2 Flow Rate 2.5 2.5 2.5 08/30/18 08/30/18 08/30/18 08/30/18 15:07 16:00 16:07 16:30 Pulse 108 98 94 Resp 20 20 20 B/P (MAP) 106/63 (77) 131/69 (89) 106/70 (82) Pulse Ox 90 97 96 91 O2 Delivery BiPAP/CPAP BiPAP/CPAP BiPAP/CPAP BiPAP/CPAP 08/30/18 08/30/18 08/30/18 08/30/18 16:37 19:25 20:24 20:30 Temp 98.5 98.5 Pulse 102 114 Resp 20 18 B/P (MAP) 115/93 (100) 121/66 (84) Pulse Ox 90 91 97 O2 Delivery BiPAP/CPAP Nasal Cannula Nasal Cannula Nasal Cannula O2 Flow Rate 5.0 5.0 3.0 08/30/18 08/30/18 08/30/18 08/30/18 21:32 22:24 23:43 23:55 Temp 98.3 98.3 Pulse 114 52 Resp 18 B/P (MAP) 121/66 114/51 (72) Pulse Ox 90 96 95 O2 Delivery BiPAP/CPAP BiPAP/CPAP BiPAP/CPAP O2 Flow Rate 3.0 08/31/18 08/31/18 08/31/18 08/31/18 03:38 07:00 08:36 08:37 Temp 97.4 98.1 97.4 98.1 Pulse 86 100 Resp 20 20 B/P (MAP) 119/62 (81) 115/56 (75) Pulse Ox 93 91 95 95 O2 Delivery BiPAP/CPAP BiPAP/CPAP Nasal Cannula Nasal Cannula O2 Flow Rate 3.0 3.0 3.0 3.0 08/31/18 08:59 Pulse 100 B/P (MAP) 115/56 Intake and Output 08/30/18 08/30/18 08/31/18 14:59 22:59 06:59 Intake Total 1250 ml 1000 ml Balance 1250 ml 1000 ml ANÍBAL BAUTISTA III DO Aug 31, 2018 10:29
--- NOTE | 2018-08-31 10:47 | PDOC2 ---
CARDIAC CONSULT DATE OF CONSULT Date of Consult DATE: 08/31/18 TIME: 10:34 REASON FOR CONSULT Reason for Consult: SVT REFERRING PHYSICIAN Referring Physician: Omayra SOURCE Source: Chart review, Patient HISTORY OF PRESENT ILLNESS HISTORY OF PRESENT ILLNESS This is a 68 yo male admitted for complains of persistent shortness of breath. It is unclear if he is consistent with his home bipap use but verbalized that when he uses his bipap reverse happens to which his O2 sat becomes low. At some point at home he noted his O2 sat at 50%. He has been coughing, no chest pain and no dizziness but with occasional palpitations. As an inpt he has been noted with brief PSVT but no symptoms associated with it. Presentl he is off bipap and trying to eat lunch. PAST MEDICAL HISTORY Past Medical History Cardiovascular: coronary calcification per past CT Pulmonary: COPD, Pneumonia, Other (emphysema) with home bipap GI: GERD Heme/Onc: No pertinent hx Hepatobiliary: No pertinent hx Psych: No pertinent hx Musculoskeletal: OA Rheumatologic: No pertinent hx Infectious disease: No pertinent hx ENT: No pertinent hx Renal/: No pertinent hx Endocrine: No pertinent hx Dermatology: No pertinent hx PAST SURGICAL HISTORY Past Surgical History: Arthroscopy (Left RTC repair x2) FAMILY HISTORY Family History noncontributory to CV SOCIAL HISTORY ALCOHOL: none Drugs: None Lives: with Family CURRENT MEDICATIONS CURRENT MEDICATIONS Current Medications Medications (Trade) Dose Ordered Sig/Elijah Route PRN Reason Start Time Stop Time Status Last Admin Dose Admin Albuterol/ Ipratropium (Duoneb) 3 ml 1X ONCE NEB 08/30/18 15:00 08/30/18 15:01 DC 08/30/18 14:53 Methylprednisolone Sodium Succinate (SOLU-Medrol 125MG VIAL) 125 mg 1X ONCE IV 08/30/18 15:00 08/30/18 15:01 DC 08/30/18 15:03 Sodium Chloride 1,000 ml @ 1,000 mls/hr 1X ONCE IV 08/30/18 15:00 08/30/18 15:59 DC 08/30/18 15:05 Methylprednisolone Sodium Succinate (SOLU-Medrol 125MG VIAL) 80 mg Q8HRS IV 08/30/18 22:00 08/31/18 05:54 Furosemide (Lasix) 20 mg DAILY PO 08/31/18 09:00 08/31/18 08:57 Albuterol/ Ipratropium (Duoneb) 3 ml RTQID NEB 08/30/18 20:00 08/31/18 08:32 Metoprolol Tartrate (Lopressor) 12.5 mg BID PO 08/30/18 21:00 08/31/18 08:59 Pantoprazole Sodium (Protonix) 40 mg DAILY PO 08/31/18 09:00 08/31/18 08:57 Potassium Chloride (Klor-Con) 10 meq DAILYWBKFT PO 08/31/18 08:00 08/31/18 08:59 Tamsulosin HCl (Flomax) 0.4 mg DAILY PO 08/31/18 09:00 08/31/18 08:57 Nicotine (Nicoderm Cq 7mg) 1 patch DAILY TD 08/31/18 09:00 08/31/18 09:01 Sennosides (Senna) 8.6 mg BID PO 08/30/18 21:00 08/31/18 08:58 Benzonatate (Tessalon Perle) 100 mg [id number] PO 08/30/18 21:00 08/31/18 08:57 Budesonide (Pulmicort) 0.5 mg RTBID NEB 08/30/18 22:00 08/31/18 08:00 ALLERGIES ALLERGIES: Coded Allergies: morphine (Verified Allergy, Intermediate, Itching, 07/15/18) ROS Review of System 14 point ROS evaluated with pertinent positives noted per HPI PHYSICAL EXAM General: Alert, Oriented X3, Cooperative, mild distress HEENT: Atraumatic, Mucous membr. moist/pink Lungs: Other (diminished; tachypnea on O2 3LPMNC) Heart: Regular rate (SR), Normal S1, Normal S2, Other (2/6 systolic murmur to LLS border) Abdomen: Soft, No tenderness Extremities: No cyanosis, Other (1+ pitting edema more to LLE) Skin: No breakdown, No significant lesion Neuro: Normal speech, Sensation intact Psych/Mental Status: Mental status NL, Mood NL MUSCULOSKELETAL: Osteoarthritic changes both hands VITALS VITALS Vital Signs Date Time Temp Pulse Resp B/P (MAP) Pulse Ox O2 Delivery O2 Flow Rate FiO2 08/31/18 08:59 100 115/56 08/31/18 08:37 95 Nasal Cannula 3.0 08/31/18 07:00 98.1 20 98.1 LABS Lab: Laboratory Tests Test 08/30/18 14:40 08/30/18 14:45 White Blood Count 6.5 x10^3/uL (4.0-11.0) Red Blood Count 3.95 x10^6/uL (4.30-5.70) Hemoglobin 12.1 g/dL (13.0-17.5) Hematocrit 36.6 % (39.0-53.0) Mean Corpuscular Volume 93 fL (79-100) Mean Corpuscular Hemoglobin 31 pg (25-35) Mean Corpuscular Hemoglobin Concent 33 g/dL (31-37) Red Cell Distribution Width 15.0 % (11.5-14.5) Platelet Count 225 x10^3/uL (140-400) Neutrophils (%) (Auto) 82 % (31-73) Lymphocytes (%) (Auto) 12 % (24-48) Monocytes (%) (Auto) 5 % (0-9) Eosinophils (%) (Auto) 2 % (0-3) Basophils (%) (Auto) 1 % (0-3) Neutrophils # (Auto) 5.3 x10^3uL (1.8-7.7) Lymphocytes # (Auto) 0.8 x10^3/uL (1.0-4.8) Monocytes # (Auto) 0.3 x10^3/uL (0.0-1.1) Eosinophils # (Auto) 0.1 x10^3/uL (0.0-0.7) Basophils # (Auto) 0.0 x10^3/uL (0.0-0.2) Sodium Level 139 mmol/L (136-145) Potassium Level 4.1 mmol/L (3.5-5.1) Chloride Level 97 mmol/L (98-107) Carbon Dioxide Level > 45 mmol/L (21-32) Anion Gap (6-14) Blood Urea Nitrogen 13 mg/dL (8-26) Creatinine 0.6 mg/dL (0.7-1.3) Estimated GFR (Cockcroft-Gault) 133.6 BUN/Creatinine Ratio 22 (6-20) Glucose Level 213 mg/dL (70-99) Calcium Level 9.3 mg/dL (8.5-10.1) Total Bilirubin 0.3 mg/dL (0.2-1.0) Aspartate Amino Transf (AST/SGOT) 16 U/L (15-37) Alanine Aminotransferase (ALT/SGPT) 23 U/L (16-63) Alkaline Phosphatase 105 U/L (46-116) Troponin I Quantitative < 0.017 ng/mL (0.000-0.055) KK-Erd-K-Type Natriuretic Peptide 39 pg/mL (0-124) Total Protein 6.7 g/dL (6.4-8.2) Albumin 3.4 g/dL (3.4-5.0) Albumin/Globulin Ratio 1.0 (1.0-1.7) O2 Saturation 90 % (92-99) Arterial Blood pH 7.25 (7.35-7.45) Arterial Blood pCO2 at Patient Temp 104 mmHg (35-46) Arterial Blood pO2 at Patient Temp 62 mmHg (65-108) Arterial Blood HCO3 45 mmol/L (21-28) Arterial Blood Base Excess 13 mmol/L (-3-3) FiO2 30% ECHOCARDIOGRAM ECHOCARDIOGRAM <Conclusion> Left ventricle systolic function is normal. The Ejection Fraction is 50-55%. Transmitral Doppler flow pattern is Grade I-abnormal relaxation pattern. The right ventricle is mildly dilated. Trace to mild tricuspid regurgitation. There is moderate pulmonary hypertension. The PA pressure was estimated at 50 mmHg. There is no evidence of significant pericardial effusion. DATE: 05/04/18 1223 ASSESSMENT/PLAN ASSESSMENT/PLAN 1. PSVT: brief narrow complex. reactive with noted acidemia and albuterol treatments 2. Acute on chronic hypoxemic hypercapnic respiratory failure with AECOPD 3. HTN: controlled 4. HLP 5. Tobaccoism 6. Hyperglycemia: steroid induced? Recommendations 1. Recent EF and WM nml. Certainly prone to tachyarrhythmias with his significant COPD issues. Agree with low dose metoprolol unless wheezy 2. BMP, Mg, lipids, and TSH 3. Supportive care 4. Bipap, recheck BEN WHALEN APRN Aug 31, 2018 10:47
[2018-08-31] MEDS: guaiFENesin/CODEINE 100mg/10mg 5 ML LIQUID PO PRN ×2 (10:50→22:06)
[2018-08-31 11:00] VITALS: BP 123/78
[2018-08-31 12:05] LABS: CALCIUM 9.4 mg/dL (8.5-10.1); CREATININE 0.7 mg/dL (0.7-1.3); GFR 111.8; POTASSIUM 3.9 mmol/L (3.5-5.1)
[2018-08-31 12:53] LABS: CHOLESTEROL/HDL RATIO 3.2
[2018-08-31 13:11] LABS: BASE EXCESS ABG 11 mmol/L (-3-3); HCO3 ABG 39 mmol/L (21-28); PO2 ABG 57 mmHg (65-108); SAT O2 ABG 89 % (92-99)
[2018-08-31 13:35] LABS: FIO2 ABG 32
[2018-08-31] MEDS: ENOXAPARIN 40 MG/0.4 ML SYRINGE. SQ SCH (13:38)
[2018-08-31 15:00] VITALS: BP 105/44
[2018-08-31] MEDS: MAG HYDROX/ALUMINUM HYD/SIMETH 30 ML ORAL.SUSP PO PRN (15:45)
[2018-08-31 19:51] VITALS: BP 113/71
[2018-08-31 23:25] VITALS: BP 115/75
[2018-09-01 03:44] VITALS: BP 107/68
[2018-09-01] MEDS: methylPREDNISolone SOD SUCC PF 125 MG/2 ML VIAL. IV SCH ×3 (05:33→22:01)
[2018-09-01] MEDS: BUDESONIDE 0.5 MG/2 ML NEBU. NEB SCH ×2 (06:15→20:12)
[2018-09-01] MEDS: IPRATRPIUM/ALBUTEROL 0.5/2.5MG 3 ML NEBU. NEB SCH ×4 (06:16→20:12)
[2018-09-01 07:49] VITALS: BP 135/71
[2018-09-01] MEDS: NICOTINE 7MG PATCH. TD SCH (08:46)
[2018-09-01] MEDS: POTASSIUM CHLORIDE 10 MEQ TABLET.ER. PO SCH (08:48)
[2018-09-01] MEDS: PANTOPRAZOLE 40 MG TABLET.DR. PO SCH (08:48)
[2018-09-01] MEDS: TAMSULOSIN 0.4 MG CAP.ER.24H. PO SCH (08:48)
[2018-09-01] MEDS: SENNOSIDES 8.6 MG TABLET PO SCH ×2 (08:48→20:02)
[2018-09-01] MEDS: BENZONATATE 100 MG CAPSULE. PO SCH ×3 (08:48→20:02)
[2018-09-01] MEDS: FUROSEMIDE 20 MG TABLET PO SCH (08:49)
[2018-09-01] MEDS: METOPROLOL TART IMMED RELEASE 25 MG TABLET. PO SCH ×2 (08:49→20:02)
[2018-09-01] MEDS: guaiFENesin/CODEINE 100mg/10mg 5 ML LIQUID PO PRN (08:50)
[2018-09-01] MEDS: MAG HYDROX/ALUMINUM HYD/SIMETH 30 ML ORAL.SUSP PO PRN (09:00)
--- NOTE | 2018-09-01 09:29 | PDOC ---
CARDIO Progress Notes Date and Time Date of Service 09/01/18 Time of Evaluation 0930 Subjective Subjective: No Chest Pain, Other (breathing improved) Vitals Vitals Vital Signs Date Time Temp Pulse Resp B/P (MAP) Pulse Ox O2 Delivery O2 Flow Rate FiO2 09/01/18 08:49 87 135/71 09/01/18 07:49 97.6 20 94 BiPAP/CPAP 97.6 09/01/18 06:17 3.0 Weight Weight [ ] Input and Output Intake and Output Intake and Output 09/01/18 06:59 Intake Total 520 ml Output Total 900 ml Balance -380 ml Intake Oral 520 ml Output Urine Total 900 ml # Voids 3 Laboratory Labs Laboratory Tests Test 08/31/18 11:20 08/31/18 12:29 Sodium Level 140 mmol/L (136-145) Potassium Level 3.9 mmol/L (3.5-5.1) Chloride Level 94 mmol/L (98-107) Carbon Dioxide Level 43 mmol/L (21-32) Anion Gap 3 (6-14) Blood Urea Nitrogen 18 mg/dL (8-26) Creatinine 0.7 mg/dL (0.7-1.3) Estimated GFR (Cockcroft-Gault) 111.8 Glucose Level 369 mg/dL (70-99) Calcium Level 9.4 mg/dL (8.5-10.1) Magnesium Level 2.0 mg/dL (1.8-2.4) Triglycerides Level 74 mg/dL (0-150) Cholesterol Level 214 mg/dL (0-200) LDL Cholesterol, Calculated 132 mg/dL (0-100) VLDL Cholesterol, Calculated 15 mg/dL (0-40) Non-HDL Cholesterol Calculated 147 mg/dL (0-129) HDL Cholesterol 67 mg/dL (40-60) Cholesterol/HDL Ratio 3.2 Thyroid Stimulating Hormone (TSH) 0.126 uIU/mL (0.358-3.74) Free Triiodothyronine (T3) pg/mL 1.52 pg/mL (2.18-3.98) O2 Saturation 89 % (92-99) Arterial Blood pH 7.38 (7.35-7.45) Arterial Blood pCO2 at Patient Temp 66 mmHg (35-46) Arterial Blood pO2 at Patient Temp 57 mmHg (65-108) Arterial Blood HCO3 39 mmol/L (21-28) Arterial Blood Base Excess 11 mmol/L (-3-3) FiO2 32 Physical Exam HEENT: Neck Supple W Full Motion Chest: Symmetric LUNGS: Other (fine expiratory wheezing) Heart: S1S2, RRR Abdomen: Soft N/T Extremities: Other (trace LE edema ) Neurology: alert, oriented, follow commands Assessment Assessment 1. PSVT: brief narrow complex. multifactorial. Recent EF and WM nml. None further today 2. Acute on chronic hypoxemic hypercapnic respiratory failure with AECOPD 3. HTN: controlled 4. HLP; LDL 132 5. Tobaccoism; discussed/encouraged cessation 6. Hyperthyroidism Recommendations Continue BB for rate control unless significant wheezing noted. Add statin Lung optimization as per pulmonary CANDICE WADE APRN Sep 01, 2018 09:29
--- NOTE | 2018-09-01 10:07 | PDOC ---
PULMONARY PROGRESS NOTES Subjective PT ABLE TO WALK IN ROOM NOW Vitals Vital Signs Date Time Temp Pulse Resp B/P (MAP) Pulse Ox O2 Delivery O2 Flow Rate FiO2 09/01/18 08:49 87 135/71 09/01/18 07:49 97.6 20 94 BiPAP/CPAP 97.6 09/01/18 06:17 3.0 ROS: No Nausea, No Chest Pain, No Abdominal Pain, No Increase Cough (VERY POOR AIRFLOW) General: Alert, No acute distress Lungs: Other (decrease bs) Cardiovascular: S1, S2 Abdomen: Soft, Non-tender Neuro Exam: Alert Extremities: No Edema, Other Skin: Warm Labs Laboratory Tests Test 08/30/18 14:40 08/30/18 14:45 08/31/18 11:20 08/31/18 12:29 White Blood Count 6.5 x10^3/uL (4.0-11.0) Red Blood Count 3.95 x10^6/uL (4.30-5.70) Hemoglobin 12.1 g/dL (13.0-17.5) Hematocrit 36.6 % (39.0-53.0) Mean Corpuscular Volume 93 fL (79-100) Mean Corpuscular Hemoglobin 31 pg (25-35) Mean Corpuscular Hemoglobin Concent 33 g/dL (31-37) Red Cell Distribution Width 15.0 % (11.5-14.5) Platelet Count 225 x10^3/uL (140-400) Neutrophils (%) (Auto) 82 % (31-73) Lymphocytes (%) (Auto) 12 % (24-48) Monocytes (%) (Auto) 5 % (0-9) Eosinophils (%) (Auto) 2 % (0-3) Basophils (%) (Auto) 1 % (0-3) Neutrophils # (Auto) 5.3 x10^3uL (1.8-7.7) Lymphocytes # (Auto) 0.8 x10^3/uL (1.0-4.8) Monocytes # (Auto) 0.3 x10^3/uL (0.0-1.1) Eosinophils # (Auto) 0.1 x10^3/uL (0.0-0.7) Basophils # (Auto) 0.0 x10^3/uL (0.0-0.2) Sodium Level 139 mmol/L (136-145) 140 mmol/L (136-145) Potassium Level 4.1 mmol/L (3.5-5.1) 3.9 mmol/L (3.5-5.1) Chloride Level 97 mmol/L (98-107) 94 mmol/L (98-107) Carbon Dioxide Level > 45 mmol/L (21-32) 43 mmol/L (21-32) Anion Gap (6-14) 3 (6-14) Blood Urea Nitrogen 13 mg/dL (8-26) 18 mg/dL (8-26) Creatinine 0.6 mg/dL (0.7-1.3) 0.7 mg/dL (0.7-1.3) Estimated GFR (Cockcroft-Gault) 133.6 111.8 BUN/Creatinine Ratio 22 (6-20) Glucose Level 213 mg/dL (70-99) 369 mg/dL (70-99) Calcium Level 9.3 mg/dL (8.5-10.1) 9.4 mg/dL (8.5-10.1) Total Bilirubin 0.3 mg/dL (0.2-1.0) Aspartate Amino Transf (AST/SGOT) 16 U/L (15-37) Alanine Aminotransferase (ALT/SGPT) 23 U/L (16-63) Alkaline Phosphatase 105 U/L (46-116) Troponin I Quantitative < 0.017 ng/mL (0.000-0.055) KV-Lge-J-Type Natriuretic Peptide 39 pg/mL (0-124) Total Protein 6.7 g/dL (6.4-8.2) Albumin 3.4 g/dL (3.4-5.0) Albumin/Globulin Ratio 1.0 (1.0-1.7) O2 Saturation 90 % (92-99) 89 % (92-99) Arterial Blood pH 7.25 (7.35-7.45) 7.38 (7.35-7.45) Arterial Blood pCO2 at Patient Temp 104 mmHg (35-46) 66 mmHg (35-46) Arterial Blood pO2 at Patient Temp 62 mmHg (65-108) 57 mmHg (65-108) Arterial Blood HCO3 45 mmol/L (21-28) 39 mmol/L (21-28) Arterial Blood Base Excess 13 mmol/L (-3-3) 11 mmol/L (-3-3) FiO2 30% 32 Magnesium Level 2.0 mg/dL (1.8-2.4) Triglycerides Level 74 mg/dL (0-150) Cholesterol Level 214 mg/dL (0-200) LDL Cholesterol, Calculated 132 mg/dL (0-100) VLDL Cholesterol, Calculated 15 mg/dL (0-40) Non-HDL Cholesterol Calculated 147 mg/dL (0-129) HDL Cholesterol 67 mg/dL (40-60) Cholesterol/HDL Ratio 3.2 Thyroid Stimulating Hormone (TSH) 0.126 uIU/mL (0.358-3.74) Free Triiodothyronine (T3) pg/mL 1.52 pg/mL (2.18-3.98) Laboratory Tests Test 08/31/18 11:20 08/31/18 12:29 Sodium Level 140 mmol/L (136-145) Potassium Level 3.9 mmol/L (3.5-5.1) Chloride Level 94 mmol/L (98-107) Carbon Dioxide Level 43 mmol/L (21-32) Anion Gap 3 (6-14) Blood Urea Nitrogen 18 mg/dL (8-26) Creatinine 0.7 mg/dL (0.7-1.3) Estimated GFR (Cockcroft-Gault) 111.8 Glucose Level 369 mg/dL (70-99) Calcium Level 9.4 mg/dL (8.5-10.1) Magnesium Level 2.0 mg/dL (1.8-2.4) Triglycerides Level 74 mg/dL (0-150) Cholesterol Level 214 mg/dL (0-200) LDL Cholesterol, Calculated 132 mg/dL (0-100) VLDL Cholesterol, Calculated 15 mg/dL (0-40) Non-HDL Cholesterol Calculated 147 mg/dL (0-129) HDL Cholesterol 67 mg/dL (40-60) Cholesterol/HDL Ratio 3.2 Thyroid Stimulating Hormone (TSH) 0.126 uIU/mL (0.358-3.74) Free Triiodothyronine (T3) pg/mL 1.52 pg/mL (2.18-3.98) O2 Saturation 89 % (92-99) Arterial Blood pH 7.38 (7.35-7.45) Arterial Blood pCO2 at Patient Temp 66 mmHg (35-46) Arterial Blood pO2 at Patient Temp 57 mmHg (65-108) Arterial Blood HCO3 39 mmol/L (21-28) Arterial Blood Base Excess 11 mmol/L (-3-3) FiO2 32 Medications Active Scripts Medications Dose Route/Sig Max Daily Dose Days Date Category Advair 500-50 Diskus (Fluticasone/Salmeterol) 1 Each Disk.w.dev 1 Puff IH BID 08/08/18 Rx NICODERM CQ 21mg (Nicotine) 1 Each Patch.td24 1 Patch TP DAILY 08/08/18 Rx Doxycycline Hyclate 100 Mg Tablet 100 Mg PO BID MDD 1 08/08/18 Rx Culturelle (Lactobacillus Rhamnosus Gg) 1 Each Cap.sprink 1 Cap PO BID 14 05/20/18 Rx Simethicone 80 Mg Tab.chew 80 Mg PO PRN AFTMEALHC PRN 14 05/20/18 Rx Senna (Sennosides) 8.6 Mg Tablet 8.6 Mg PO BID 05/18/18 Reported NICODERM CQ 7mg (Nicotine) 1 Each Patch.td24 1 Patch TD DAILY 05/18/18 Reported Maalox Advanced Suspension (Mag Hydrox/Aluminum Hyd/Simeth) 355 Ml Oral.susp 355 Ml PO PRN Q6HRS PRN 05/18/18 Reported Duoneb 0.5-3(2.5) Mg/3 Ml (Albuterol/Ipratropium) 3 Ml Ampul.neb 3 Ml NEB RTQID MDD 1 05/10/18 Rx Protonix (Pantoprazole Sodium) 40 Mg Tablet.dr 40 Mg PO DAILY 11/18/15 Reported Potassium Chloride 10 Meq Capsule.er 10 Meq PO DAILY 11/18/15 Reported Lasix (Furosemide) 20 Mg Tablet 1 Tab PO DAILY 11/18/15 Reported Advair 500-50 Diskus (Fluticasone/Salmeterol) 1 Each Disk.w.dev 1 Puff IH DAILY 10/11/15 Reported Spiriva (Tiotropium [place]) 18 Mcg Cap.w.dev 1 Cap IH DAILY 10/11/15 Reported Flomax (Tamsulosin Hcl) 0.4 Mg Cap.er.24h 1 Cap PO DAILY 10/11/15 Reported Metoprolol Tartrate 25 Mg Tablet 12.5 Mg PO BID 10/11/15 Reported Impression . IMPRESSION: 1. Acute on chronic hypoxemic/ hypercapnic respiratory failure. 2. Acute exacerbation of chronic obstructive pulmonary disease. 3. Tobacco dependent. 4. Gastroesophageal reflux. 5. Hypertension. Plan . ABG COMPENSATED/ WILL USE PRN BIPAP D/C SMOKING 1. PRN BiPAP. 2. IV steroids with taper 3. No need for antibiotics. 4. Nebulized treatments. 5. Nicotine replacement 6. The patient instructed on the importance of discontinuing tobacco use. 7. increase ambulation 8. Pt on home O2 2 litres 24 hr PAULA HAYNES MD Sep 01, 2018 10:07
[2018-09-01 11:00] VITALS: BP 145/76
[2018-09-01] MEDS: ENOXAPARIN 40 MG/0.4 ML SYRINGE. SQ SCH (13:15)
--- NOTE | 2018-09-01 13:25 | PDOC ---
[employer] PROGRESS NOTE Chief Complaint Chief Complaint Hypercapnic respiratory failure. Chronic obstructive pulmonary disease. Tobacco dependent. Gastroesophageal reflux. Hypertension. History of Present Illness History of Present Illness Pt seen and examined Patient is a pleasant 68 year old male He was not in acute distress He says that he is feeling better and is saturating 94% on 3L O2 Vitals/I&O Vitals/I&O: Vital Signs Date Time Temp Pulse Resp B/P (MAP) Pulse Ox O2 Delivery O2 Flow Rate FiO2 09/01/18 11:59 95 Nasal Cannula 3.0 09/01/18 11:00 97.5 86 24 145/76 (99) 97.5 I & O 08/31/18 08/31/18 09/01/18 15:00 23:00 07:00 Intake Total 520 ml Output Total 200 ml 700 ml Balance -200 ml -180 ml Physical Exam General: Alert, Oriented X3, Cooperative, mild distress Heart: Regular rate (SR), Normal S1, Normal S2, Other (2/6 systolic murmur to LLS border) Lungs: Other (decrease bs) Abdomen: Soft, No tenderness Extremities: No cyanosis, Other (1+ pitting edema more to LLE) Skin: No breakdown, No significant lesion Review of Systems Review of Systems: General: No fever, no chills Respiratory: decreased shortness of breath, no cough, no hemoptysis Assessment and Plan Assessmemt and Plan Problems Medical Problems: (1) Acute and chronic respiratory failure with hypoxia Status: Acute (2) COPD exacerbation Status: Acute Assessment: Hypercapnic respiratory failure. Chronic obstructive pulmonary disease. Tobacco dependent. Gastroesophageal reflux. Hypertension. Plan: O2 Duonebs Steroids with taper Pulmonary consulted - PRN BiPap Cards consulted - BB for rate control, start atorvastatin PT/OT DVT prophylaxis Possible discharge tomorrow if ok with consulting physicians Comment Review of Relevant I have reviewed the following items zaire (where applicable) has been applied. ANÍBAL BAUTISTA III, DO Sep 01, 2018 13:25
--- NOTE | 2018-09-01 13:41 | NUR ---
NETTIE following pt for dc planning. NETTIE notified pt's Bipap is not working at home. NETTIE notified Joao at [facility] and faxed pt's facesheet. Pt had used [facility] in the past. No other needs noted at this time. Addendum: 09/01/18 at 1549 by HIRA SHEFFIELD Joao from [facility] reported he will set up a Bipap exchange next week.
[2018-09-01 14:58] VITALS: BP 137/57
[2018-09-01 19:52] VITALS: BP 132/67
[2018-09-01] MEDS: SODIUM CHLORIDE 0.65% NASAL SPRAY 45ML BOTTLE. NS PRN (19:58)
[2018-09-01] MEDS: ATORVASTATIN CALCIUM 10 MG TABLET. PO SCH (19:59)
[2018-09-01 23:06] VITALS: BP 132/99
[2018-09-02] MEDS: ALBUTEROL SULFATE 2.5 MG/3 ML NEBU. NEB PRN (02:47)
[2018-09-02 02:59] VITALS: BP 137/59
[2018-09-02] MEDS: methylPREDNISolone SOD SUCC PF 125 MG/2 ML VIAL. IV SCH (06:19)
[2018-09-02] MEDS: BUDESONIDE 0.5 MG/2 ML NEBU. NEB SCH ×2 (07:31→20:03)
[2018-09-02] MEDS: IPRATRPIUM/ALBUTEROL 0.5/2.5MG 3 ML NEBU. NEB SCH ×4 (07:31→20:03)
[2018-09-02 07:58] VITALS: BP 139/70
[2018-09-02] MEDS: PANTOPRAZOLE 40 MG TABLET.DR. PO SCH (10:23)
[2018-09-02] MEDS: POTASSIUM CHLORIDE 10 MEQ TABLET.ER. PO SCH (10:23)
[2018-09-02] MEDS: TAMSULOSIN 0.4 MG CAP.ER.24H. PO SCH (10:23)
[2018-09-02] MEDS: BENZONATATE 100 MG CAPSULE. PO SCH ×3 (10:23→21:56)
[2018-09-02] MEDS: METOPROLOL TART IMMED RELEASE 25 MG TABLET. PO SCH ×2 (10:24→21:56)
[2018-09-02] MEDS: FUROSEMIDE 20 MG TABLET PO SCH (10:24)
[2018-09-02] MEDS: NICOTINE 7MG PATCH. TD SCH (10:25)
[2018-09-02] MEDS: SENNOSIDES 8.6 MG TABLET PO SCH ×2 (10:27→21:55)
--- NOTE | 2018-09-02 10:47 | PDOC ---
PULMONARY PROGRESS NOTES Subjective PT ABLE TO WALK IN ROOM NOW Vitals Vital Signs Date Time Temp Pulse Resp B/P (MAP) Pulse Ox O2 Delivery O2 Flow Rate FiO2 09/02/18 10:24 87 139/70 09/02/18 07:58 97.7 24 95 Nasal Cannula 3.0 97.7 ROS: No Nausea, No Chest Pain, No Abdominal Pain, No Increase Cough (VERY POOR AIRFLOW) General: Alert, No acute distress Lungs: Other (decrease bs) Cardiovascular: S1, S2 Abdomen: Soft, Non-tender Neuro Exam: Alert Extremities: No Edema, Other Skin: Warm Labs Laboratory Tests Test 08/31/18 11:20 08/31/18 12:29 Sodium Level 140 mmol/L (136-145) Potassium Level 3.9 mmol/L (3.5-5.1) Chloride Level 94 mmol/L (98-107) Carbon Dioxide Level 43 mmol/L (21-32) Anion Gap 3 (6-14) Blood Urea Nitrogen 18 mg/dL (8-26) Creatinine 0.7 mg/dL (0.7-1.3) Estimated GFR (Cockcroft-Gault) 111.8 Glucose Level 369 mg/dL (70-99) Calcium Level 9.4 mg/dL (8.5-10.1) Magnesium Level 2.0 mg/dL (1.8-2.4) Triglycerides Level 74 mg/dL (0-150) Cholesterol Level 214 mg/dL (0-200) LDL Cholesterol, Calculated 132 mg/dL (0-100) VLDL Cholesterol, Calculated 15 mg/dL (0-40) Non-HDL Cholesterol Calculated 147 mg/dL (0-129) HDL Cholesterol 67 mg/dL (40-60) Cholesterol/HDL Ratio 3.2 Thyroid Stimulating Hormone (TSH) 0.126 uIU/mL (0.358-3.74) Free Triiodothyronine (T3) pg/mL 1.52 pg/mL (2.18-3.98) O2 Saturation 89 % (92-99) Arterial Blood pH 7.38 (7.35-7.45) Arterial Blood pCO2 at Patient Temp 66 mmHg (35-46) Arterial Blood pO2 at Patient Temp 57 mmHg (65-108) Arterial Blood HCO3 39 mmol/L (21-28) Arterial Blood Base Excess 11 mmol/L (-3-3) FiO2 32 Medications Active Scripts Medications Dose Route/Sig Max Daily Dose Days Date Category Advair 500-50 Diskus (Fluticasone/Salmeterol) 1 Each Disk.w.dev 1 Puff IH BID 08/08/18 Rx NICODERM CQ 21mg (Nicotine) 1 Each Patch.td24 1 Patch TP DAILY 08/08/18 Rx Doxycycline Hyclate 100 Mg Tablet 100 Mg PO BID MDD 1 08/08/18 Rx Culturelle (Lactobacillus Rhamnosus Gg) 1 Each Cap.sprink 1 Cap PO BID 14 05/20/18 Rx Simethicone 80 Mg Tab.chew 80 Mg PO PRN AFTMEALHC PRN 14 05/20/18 Rx Senna (Sennosides) 8.6 Mg Tablet 8.6 Mg PO BID 05/18/18 Reported NICODERM CQ 7mg (Nicotine) 1 Each Patch.td24 1 Patch TD DAILY 05/18/18 Reported Maalox Advanced Suspension (Mag Hydrox/Aluminum Hyd/Simeth) 355 Ml Oral.susp 355 Ml PO PRN Q6HRS PRN 05/18/18 Reported Duoneb 0.5-3(2.5) Mg/3 Ml (Albuterol/Ipratropium) 3 Ml Ampul.neb 3 Ml NEB RTQID MDD 1 05/10/18 Rx Protonix (Pantoprazole Sodium) 40 Mg Tablet.dr 40 Mg PO DAILY 11/18/15 Reported Potassium Chloride 10 Meq Capsule.er 10 Meq PO DAILY 11/18/15 Reported Lasix (Furosemide) 20 Mg Tablet 1 Tab PO DAILY 11/18/15 Reported Advair 500-50 Diskus (Fluticasone/Salmeterol) 1 Each Disk.w.dev 1 Puff IH DAILY 10/11/15 Reported Spiriva (Tiotropium [place]) 18 Mcg Cap.w.dev 1 Cap IH DAILY 10/11/15 Reported Flomax (Tamsulosin Hcl) 0.4 Mg Cap.er.24h 1 Cap PO DAILY 10/11/15 Reported Metoprolol Tartrate 25 Mg Tablet 12.5 Mg PO BID 10/11/15 Reported Impression . IMPRESSION: 1. Acute on chronic hypoxemic/ hypercapnic respiratory failure. 2. Acute exacerbation of chronic obstructive pulmonary disease. 3. Tobacco dependent. 4. Gastroesophageal reflux. 5. Hypertension. Plan . ABG COMPENSATED/ WILL USE PRN BIPAP D/C SMOKING 1. PRN BiPAP. 2. IV steroids with taper 3. No need for antibiotics. 4. Nebulized treatments. 5. Nicotine replacement 6. The patient instructed on the importance of discontinuing tobacco use. 7. increase ambulation 8. Pt on home O2 2 litres 24 hr PAULA HAYNES MD Sep 02, 2018 10:47
[2018-09-02 11:00] VITALS: BP 139/70
--- NOTE | 2018-09-02 12:26 | PDOC ---
[employer] PROGRESS NOTE Chief Complaint Chief Complaint Hypercapnic respiratory failure. Chronic obstructive pulmonary disease. Tobacco dependent. Gastroesophageal reflux. Hypertension. History of Present Illness History of Present Illness 09-02-2018 Patient was seen and examined He says that he was not feeling very well today and that he was very short of breath He is still on 3L of O2 saturating at 95% Pt seen and examined Patient is a pleasant 68 year old male He was not in acute distress He says that he is feeling better and is saturating 94% on 3L O2 Vitals/I&O Vitals/I&O: Vital Signs Date Time Temp Pulse Resp B/P (MAP) Pulse Ox O2 Delivery O2 Flow Rate FiO2 09/02/18 11:18 95 Nasal Cannula 3.0 09/02/18 11:00 97.6 97 24 139/70 (93) 97.6 I & O 09/01/18 09/01/18 09/02/18 14:59 22:59 06:59 Intake Total 840 ml Output Total 300 ml 600 ml Balance -300 ml 240 ml Physical Exam General: Alert, Oriented X3, Cooperative, mild distress Heart: Regular rate (SR), Normal S1, Normal S2, Other (2/6 systolic murmur to LLS border) Lungs: Other (decrease bs) Abdomen: Soft, No tenderness Extremities: No cyanosis, Other (1+ pitting edema more to LLE) Skin: No breakdown, No significant lesion Review of Systems Review of Systems: General: No fever, no chills Respiratory: Shortness of breath, no coughing, no hemoptysis Assessment and Plan Assessmemt and Plan Problems Medical Problems: (1) Acute and chronic respiratory failure with hypoxia Status: Acute (2) COPD exacerbation Status: Acute Assessment: Hypercapnic respiratory failure. Chronic obstructive pulmonary disease. Tobacco dependent. Gastroesophageal reflux. Hypertension. Plan: O2 - uses 2L at home Duonebs Steroids with taper Pulmonary consulted - PRN BiPap Cards consulted - BB for rate control, start atorvastatin PT/OT DVT prophylaxis Possible discharge tomorrow if shortness of breath resolves and if consulting physicians ok with discharge Comment Review of Relevant I have reviewed the following items zaire (where applicable) has been applied. Medications: Current Medications Medications (Trade) Dose Ordered Sig/Elijah Route PRN Reason Start Time Stop Time Status Last Admin Dose Admin Atorvastatin Calcium (Lipitor) 10 mg QHS PO 09/01/18 21:00 7/3/19 19:59 Sodium Chloride (Saline Mist Nasal) 1 hoang PRN Q1HR PRN NS NASAL CONGESTION 09/01/18 20:00 09/01/18 19:58 ANÍBAL BAUTISTA III DO Sep 02, 2018 12:26
[2018-09-02] MEDS: ENOXAPARIN 40 MG/0.4 ML SYRINGE. SQ SCH (13:19)
[2018-09-02] MEDS: SODIUM CHLORIDE 0.65% NASAL SPRAY 45ML BOTTLE. NS PRN (13:19)
[2018-09-02] MEDS: MAG HYDROX/ALUMINUM HYD/SIMETH 30 ML ORAL.SUSP PO PRN (13:25)
[2018-09-02] MEDS: methylPREDNISolone SOD SUCC PF 40 MG/ML VIAL. IV SCH ×2 (13:26→21:57)
[2018-09-02 15:34] VITALS: BP 128/62
[2018-09-02 19:55] VITALS: BP 141/62
[2018-09-02] MEDS: ATORVASTATIN CALCIUM 10 MG TABLET. PO SCH (21:56)
[2018-09-02 23:57] VITALS: BP 127/75
[2018-09-03 03:40] VITALS: BP 126/78
[2018-09-03] MEDS: methylPREDNISolone SOD SUCC PF 40 MG/ML VIAL. IV SCH ×3 (05:54→21:39)
[2018-09-03 06:53] LABS: PCO2 ABG 66 mmHg (35-46)
[2018-09-03 07:00] VITALS: BP 134/75
[2018-09-03] MEDS: IPRATRPIUM/ALBUTEROL 0.5/2.5MG 3 ML NEBU. NEB SCH ×4 (08:01→19:35)
[2018-09-03] MEDS: BUDESONIDE 0.5 MG/2 ML NEBU. NEB SCH ×2 (08:01→19:35)
[2018-09-03] MEDS: PANTOPRAZOLE 40 MG TABLET.DR. PO SCH (08:52)
[2018-09-03] MEDS: BENZONATATE 100 MG CAPSULE. PO SCH ×3 (08:53→21:39)
[2018-09-03] MEDS: SENNOSIDES 8.6 MG TABLET PO SCH ×2 (08:53→21:39)
[2018-09-03] MEDS: FUROSEMIDE 20 MG TABLET PO SCH (08:55)
[2018-09-03] MEDS: METOPROLOL TART IMMED RELEASE 25 MG TABLET. PO SCH ×2 (08:55→21:41)
[2018-09-03] MEDS: TAMSULOSIN 0.4 MG CAP.ER.24H. PO SCH (08:56)
[2018-09-03] MEDS: NICOTINE 7MG PATCH. TD SCH (08:57)
[2018-09-03] MEDS: POTASSIUM CHLORIDE 10 MEQ TABLET.ER. PO SCH (09:02)
[2018-09-03] MEDS: SODIUM CHLORIDE 0.65% NASAL SPRAY 45ML BOTTLE. NS PRN (09:09)
--- NOTE | 2018-09-03 10:50 | PDOC ---
PULMONARY PROGRESS NOTES Subjective PT ABLE TO WALK IN ROOM NOW Vitals Vital Signs Date Time Temp Pulse Resp B/P (MAP) Pulse Ox O2 Delivery O2 Flow Rate FiO2 09/03/18 08:55 87 134/75 09/03/18 08:04 94 Nasal Cannula 3.0 09/03/18 07:00 97.6 18 97.6 ROS: No Nausea, No Chest Pain, No Abdominal Pain, No Increase Cough (VERY POOR AIRFLOW) General: Alert, No acute distress Lungs: Other (decrease bs) Cardiovascular: S1, S2 Abdomen: Soft, Non-tender Neuro Exam: Alert Extremities: No Edema, Other Skin: Warm Medications Active Scripts Medications Dose Route/Sig Max Daily Dose Days Date Category Advair 500-50 Diskus (Fluticasone/Salmeterol) 1 Each Disk.w.dev 1 Puff IH BID 08/08/18 Rx NICODERM CQ 21mg (Nicotine) 1 Each Patch.td24 1 Patch TP DAILY 08/08/18 Rx Doxycycline Hyclate 100 Mg Tablet 100 Mg PO BID MDD 1 08/08/18 Rx Culturelle (Lactobacillus Rhamnosus Gg) 1 Each Cap.sprink 1 Cap PO BID 14 05/20/18 Rx Simethicone 80 Mg Tab.chew 80 Mg PO PRN AFTMEALHC PRN 14 05/20/18 Rx Senna (Sennosides) 8.6 Mg Tablet 8.6 Mg PO BID 05/18/18 Reported NICODERM CQ 7mg (Nicotine) 1 Each Patch.td24 1 Patch TD DAILY 05/18/18 Reported Maalox Advanced Suspension (Mag Hydrox/Aluminum Hyd/Simeth) 355 Ml Oral.susp 355 Ml PO PRN Q6HRS PRN 05/18/18 Reported Duoneb 0.5-3(2.5) Mg/3 Ml (Albuterol/Ipratropium) 3 Ml Ampul.neb 3 Ml NEB RTQID MDD 1 05/10/18 Rx Protonix (Pantoprazole Sodium) 40 Mg Tablet.dr 40 Mg PO DAILY 11/18/15 Reported Potassium Chloride 10 Meq Capsule.er 10 Meq PO DAILY 11/18/15 Reported Lasix (Furosemide) 20 Mg Tablet 1 Tab PO DAILY 11/18/15 Reported Advair 500-50 Diskus (Fluticasone/Salmeterol) 1 Each Disk.w.dev 1 Puff IH DAILY 10/11/15 Reported Spiriva (Tiotropium [place]) 18 Mcg Cap.w.dev 1 Cap IH DAILY 10/11/15 Reported Flomax (Tamsulosin Hcl) 0.4 Mg Cap.er.24h 1 Cap PO DAILY 10/11/15 Reported Metoprolol Tartrate 25 Mg Tablet 12.5 Mg PO BID 10/11/15 Reported Impression . IMPRESSION: 1. Acute on chronic hypoxemic/ hypercapnic respiratory failure. 2. Acute exacerbation of chronic obstructive pulmonary disease. 3. Tobacco dependent. 4. Gastroesophageal reflux. 5. Hypertension. Plan . ABG COMPENSATED/ WILL USE PRN BIPAP D/C SMOKING 1. PRN BiPAP. 2. IV steroids with taper 3. No need for antibiotics. 4. Nebulized treatments. 5. Nicotine replacement 6. The patient instructed on the importance of discontinuing tobacco use. 7. increase ambulation 8. Pt on home O2, 2 litres 24 hr anticipate dc home in 24 hrs PAULA HAYNES MD Sep 03, 2018 10:50
[2018-09-03 11:00] VITALS: BP 130/55
[2018-09-03] MEDS: MAG HYDROX/ALUMINUM HYD/SIMETH 30 ML ORAL.SUSP PO PRN ×2 (11:25→19:40)
--- NOTE | 2018-09-03 11:42 | PDOC ---
[employer] PROGRESS NOTE Chief Complaint Chief Complaint Hypercapnic respiratory failure. Chronic obstructive pulmonary disease. Tobacco dependent. Gastroesophageal reflux. Hypertension. History of Present Illness History of Present Illness 09-03-2018 Patient was seen and examined He says that he still feels short of breath and has begun to cough up sputum today He is still on 3L of O2 and saturating at 94% 09-02-2018 Patient was seen and examined He says that he was not feeling very well today and that he was very short of breath He is still on 3L of O2 saturating at 95% Pt seen and examined Patient is a pleasant 68 year old male He was not in acute distress He says that he is feeling better and is saturating 94% on 3L O2 Vitals/I&O Vitals/I&O: Vital Signs Date Time Temp Pulse Resp B/P (MAP) Pulse Ox O2 Delivery O2 Flow Rate FiO2 09/03/18 08:55 87 134/75 09/03/18 08:25 Nasal Cannula 3.0 09/03/18 08:04 94 09/03/18 07:00 97.6 18 97.6 I & O 09/02/18 09/02/18 09/03/18 15:00 23:00 07:00 Intake Total 250 ml 150 ml Output Total 250 ml 200 ml Balance -250 ml 250 ml -50 ml Physical Exam General: Alert, Oriented X3, Cooperative, mild distress Heart: Regular rate (SR), Normal S1, Normal S2, Other (2/6 systolic murmur to LLS border) Lungs: Other (decrease bs) Abdomen: Soft, No tenderness Extremities: No cyanosis, Other (1+ pitting edema more to LLE) Skin: No breakdown, No significant lesion Review of Systems Review of Systems: General: No fever, no chills Respiratory: Shortness of breath, cough, sputum production Assessment and Plan Assessmemt and Plan Problems Medical Problems: (1) Acute and chronic respiratory failure with hypoxia Status: Acute (2) COPD exacerbation Status: Acute Assessment: Hypercapnic respiratory failure. Chronic obstructive pulmonary disease. Tobacco dependent. Gastroesophageal reflux. Hypertension. Plan: O2 - uses 2L at home Duonebs Steroids with taper Pulmonary consulted - PRN BiPap, anticipate patient ready for discharge in next 24hrs Cards consulted - BB for rate control, continue atorvastatin PT/OT DVT prophylaxis Possible discharge tomorrow if pulm ok to discharge Comment Review of Relevant I have reviewed the following items zaire (where applicable) has been applied. Medications: Current Medications Medications (Trade) Dose Ordered Sig/Elijah Route PRN Reason Start Time Stop Time Status Last Admin Dose Admin Methylprednisolone Sodium Succinate (SOLU-Medrol 40MG VIAL) 40 mg Q8HRS IV 09/02/18 14:00 09/03/18 05:54 ANÍBAL BAUTISTA III DO Sep 03, 2018 11:42
[2018-09-03 12:56] LABS: ALBUMIN 3.4 g/dL (3.4-5.0); ALBUMIN/GLOBULIN RATIO 1.1 (1.0-1.7); CALCIUM 9.1 mg/dL (8.5-10.1); CREATININE 0.7 mg/dL (0.7-1.3); GFR 111.8; POTASSIUM 4.7 mmol/L (3.5-5.1); TOTAL BILIRUBIN 0.3 mg/dL (0.2-1.0); TOTAL PROTEIN 6.6 g/dL (6.4-8.2)
[2018-09-03] MEDS: ENOXAPARIN 40 MG/0.4 ML SYRINGE. SQ SCH (13:31)
[2018-09-03 15:00] VITALS: BP 146/77
[2018-09-03 19:35] VITALS: BP 113/72
[2018-09-03] MEDS: ATORVASTATIN CALCIUM 10 MG TABLET. PO SCH (21:39)
[2018-09-03 22:57] VITALS: BP 131/79
[2018-09-04 03:00] VITALS: BP 128/74
[2018-09-04 04:31] LABS: BASO % 0 % (0-3); EOS % 0 % (0-3); HEMOGLOBIN 12.4 g/dL (13.0-17.5); LYMPH # 0.5 x10^3/uL (1.0-4.8); LYMPH % 4 % (24-48); MEAN CORPUSCULAR HEMOGLOBIN 31 pg (25-35); MEAN CORPUSCULAR HGB CONC 33 g/dL (31-37); MEAN CORPUSCULAR VOLUME 93 fL (79-100); MONO # 0.5 x10^3/uL (0.0-1.1); MONO % 4 % (0-9); NEUT # 12.2 x10^3uL (1.8-7.7); NEUT % 93 % (31-73); PLATELET COUNT 320 x10^3/uL (140-400); RED BLOOD COUNT 4.08 x10^6/uL (4.30-5.70); RED CELL DISTRIBUTION WIDTH 15.6 % (11.5-14.5); WHITE BLOOD COUNT 13.2 x10^3/uL (4.0-11.0)
[2018-09-04] MEDS: ALBUTEROL SULFATE 2.5 MG/3 ML NEBU. NEB PRN (04:38)
[2018-09-04 05:33] LABS: % BANDS 6 % (0-9); % LYMPHS 1 % (24-48); % METAS 1 % (0-0); % SEGS 92 % (35-66); PLT ESTIMATE ADEQUATE (ADEQUATE)
[2018-09-04] MEDS: methylPREDNISolone SOD SUCC PF 40 MG/ML VIAL. IV SCH ×2 (06:10→21:05)
[2018-09-04 07:00] VITALS: BP 140/82
[2018-09-04] MEDS: IPRATRPIUM/ALBUTEROL 0.5/2.5MG 3 ML NEBU. NEB SCH ×4 (07:59→18:21)
[2018-09-04] MEDS: BUDESONIDE 0.5 MG/2 ML NEBU. NEB SCH ×2 (07:59→18:21)
[2018-09-04] MEDS: FUROSEMIDE 20 MG TABLET PO SCH (08:33)
[2018-09-04] MEDS: NICOTINE 7MG PATCH. TD SCH (08:33)
[2018-09-04] MEDS: TAMSULOSIN 0.4 MG CAP.ER.24H. PO SCH (08:33)
[2018-09-04] MEDS: BENZONATATE 100 MG CAPSULE. PO SCH ×3 (08:33→21:04)
[2018-09-04] MEDS: POTASSIUM CHLORIDE 10 MEQ TABLET.ER. PO SCH (08:33)
[2018-09-04] MEDS: PANTOPRAZOLE 40 MG TABLET.DR. PO SCH (08:33)
[2018-09-04] MEDS: SENNOSIDES 8.6 MG TABLET PO SCH ×2 (08:34→21:04)
[2018-09-04] MEDS: METOPROLOL TART IMMED RELEASE 25 MG TABLET. PO SCH ×2 (08:34→21:04)
[2018-09-04] MEDS: SODIUM CHLORIDE 0.65% NASAL SPRAY 45ML BOTTLE. NS PRN (08:38)
--- NOTE | 2018-09-04 09:30 | PDOC ---
PULMONARY PROGRESS NOTES Subjective used bipap last night, sob cough better, no pain, on home 02 Vitals Vital Signs Date Time Temp Pulse Resp B/P (MAP) Pulse Ox O2 Delivery O2 Flow Rate FiO2 09/04/18 08:34 88 140/82 09/04/18 08:01 91 Nasal Cannula 3.0 09/04/18 07:00 97.5 18 97.5 ROS: No Nausea, No Chest Pain, No Abdominal Pain, No Increase Cough (VERY POOR AIRFLOW) General: Alert, No acute distress Lungs: Other (decrease bs) Cardiovascular: S1, S2 Abdomen: Soft, Non-tender Neuro Exam: Alert Extremities: No Edema, Other Skin: Warm Labs Laboratory Tests Test 09/03/18 12:25 09/04/18 04:00 Sodium Level 136 mmol/L (136-145) Potassium Level 4.7 mmol/L (3.5-5.1) Chloride Level 95 mmol/L (98-107) Carbon Dioxide Level 39 mmol/L (21-32) Anion Gap 2 (6-14) Blood Urea Nitrogen 31 mg/dL (8-26) Creatinine 0.7 mg/dL (0.7-1.3) Estimated GFR (Cockcroft-Gault) 111.8 BUN/Creatinine Ratio 44 (6-20) Glucose Level 336 mg/dL (70-99) Calcium Level 9.1 mg/dL (8.5-10.1) Total Bilirubin 0.3 mg/dL (0.2-1.0) Aspartate Amino Transf (AST/SGOT) 10 U/L (15-37) Alanine Aminotransferase (ALT/SGPT) 28 U/L (16-63) Alkaline Phosphatase 87 U/L (46-116) Total Protein 6.6 g/dL (6.4-8.2) Albumin 3.4 g/dL (3.4-5.0) Albumin/Globulin Ratio 1.1 (1.0-1.7) White Blood Count 13.2 x10^3/uL (4.0-11.0) Red Blood Count 4.08 x10^6/uL (4.30-5.70) Hemoglobin 12.4 g/dL (13.0-17.5) Hematocrit 38.0 % (39.0-53.0) Mean Corpuscular Volume 93 fL (79-100) Mean Corpuscular Hemoglobin 31 pg (25-35) Mean Corpuscular Hemoglobin Concent 33 g/dL (31-37) Red Cell Distribution Width 15.6 % (11.5-14.5) Platelet Count 320 x10^3/uL (140-400) Neutrophils (%) (Auto) 93 % (31-73) Lymphocytes (%) (Auto) 4 % (24-48) Monocytes (%) (Auto) 4 % (0-9) Eosinophils (%) (Auto) 0 % (0-3) Basophils (%) (Auto) 0 % (0-3) Neutrophils # (Auto) 12.2 x10^3uL (1.8-7.7) Lymphocytes # (Auto) 0.5 x10^3/uL (1.0-4.8) Monocytes # (Auto) 0.5 x10^3/uL (0.0-1.1) Eosinophils # (Auto) 0.0 x10^3/uL (0.0-0.7) Basophils # (Auto) 0.0 x10^3/uL (0.0-0.2) Segmented Neutrophils % 92 % (35-66) Band Neutrophils % 6 % (0-9) Lymphocytes % 1 % (24-48) Metamyelocytes % 1 % (0-0) Platelet Estimate Adequate (ADEQUATE) Laboratory Tests Test 09/03/18 12:25 09/04/18 04:00 Sodium Level 136 mmol/L (136-145) Potassium Level 4.7 mmol/L (3.5-5.1) Chloride Level 95 mmol/L (98-107) Carbon Dioxide Level 39 mmol/L (21-32) Anion Gap 2 (6-14) Blood Urea Nitrogen 31 mg/dL (8-26) Creatinine 0.7 mg/dL (0.7-1.3) Estimated GFR (Cockcroft-Gault) 111.8 BUN/Creatinine Ratio 44 (6-20) Glucose Level 336 mg/dL (70-99) Calcium Level 9.1 mg/dL (8.5-10.1) Total Bilirubin 0.3 mg/dL (0.2-1.0) Aspartate Amino Transf (AST/SGOT) 10 U/L (15-37) Alanine Aminotransferase (ALT/SGPT) 28 U/L (16-63) Alkaline Phosphatase 87 U/L (46-116) Total Protein 6.6 g/dL (6.4-8.2) Albumin 3.4 g/dL (3.4-5.0) Albumin/Globulin Ratio 1.1 (1.0-1.7) White Blood Count 13.2 x10^3/uL (4.0-11.0) Red Blood Count 4.08 x10^6/uL (4.30-5.70) Hemoglobin 12.4 g/dL (13.0-17.5) Hematocrit 38.0 % (39.0-53.0) Mean Corpuscular Volume 93 fL (79-100) Mean Corpuscular Hemoglobin 31 pg (25-35) Mean Corpuscular Hemoglobin Concent 33 g/dL (31-37) Red Cell Distribution Width 15.6 % (11.5-14.5) Platelet Count 320 x10^3/uL (140-400) Neutrophils (%) (Auto) 93 % (31-73) Lymphocytes (%) (Auto) 4 % (24-48) Monocytes (%) (Auto) 4 % (0-9) Eosinophils (%) (Auto) 0 % (0-3) Basophils (%) (Auto) 0 % (0-3) Neutrophils # (Auto) 12.2 x10^3uL (1.8-7.7) Lymphocytes # (Auto) 0.5 x10^3/uL (1.0-4.8) Monocytes # (Auto) 0.5 x10^3/uL (0.0-1.1) Eosinophils # (Auto) 0.0 x10^3/uL (0.0-0.7) Basophils # (Auto) 0.0 x10^3/uL (0.0-0.2) Segmented Neutrophils % 92 % (35-66) Band Neutrophils % 6 % (0-9) Lymphocytes % 1 % (24-48) Metamyelocytes % 1 % (0-0) Platelet Estimate Adequate (ADEQUATE) Medications Active Scripts Medications Dose Route/Sig Max Daily Dose Days Date Category Advair 500-50 Diskus (Fluticasone/Salmeterol) 1 Each Disk.w.dev 1 Puff IH BID 08/08/18 Rx NICODERM CQ 21mg (Nicotine) 1 Each Patch.td24 1 Patch TP DAILY 08/08/18 Rx Doxycycline Hyclate 100 Mg Tablet 100 Mg PO BID MDD 1 08/08/18 Rx Culturelle (Lactobacillus Rhamnosus Gg) 1 Each Cap.sprink 1 Cap PO BID 14 05/20/18 Rx Simethicone 80 Mg Tab.chew 80 Mg PO PRN AFTMEALHC PRN 14 05/20/18 Rx Senna (Sennosides) 8.6 Mg Tablet 8.6 Mg PO BID 05/18/18 Reported NICODERM CQ 7mg (Nicotine) 1 Each Patch.td24 1 Patch TD DAILY 05/18/18 Reported Maalox Advanced Suspension (Mag Hydrox/Aluminum Hyd/Simeth) 355 Ml Oral.susp 355 Ml PO PRN Q6HRS PRN 05/18/18 Reported Duoneb 0.5-3(2.5) Mg/3 Ml (Albuterol/Ipratropium) 3 Ml Ampul.neb 3 Ml NEB RTQID MDD 1 05/10/18 Rx Protonix (Pantoprazole Sodium) 40 Mg Tablet.dr 40 Mg PO DAILY 11/18/15 Reported Potassium Chloride 10 Meq Capsule.er 10 Meq PO DAILY 11/18/15 Reported Lasix (Furosemide) 20 Mg Tablet 1 Tab PO DAILY 11/18/15 Reported Advair 500-50 Diskus (Fluticasone/Salmeterol) 1 Each Disk.w.dev 1 Puff IH DAILY 10/11/15 Reported Spiriva (Tiotropium [place]) 18 Mcg Cap.w.dev 1 Cap IH DAILY 10/11/15 Reported Flomax (Tamsulosin Hcl) 0.4 Mg Cap.er.24h 1 Cap PO DAILY 10/11/15 Reported Metoprolol Tartrate 25 Mg Tablet 12.5 Mg PO BID 10/11/15 Reported Impression . IMPRESSION: 1. Acute on chronic hypoxemic/ hypercapnic respiratory failure. 2. Acute exacerbation of chronic obstructive pulmonary disease. 3. Tobacco dependent. 4. Gastroesophageal reflux. 5. Hypertension. Plan . ABG COMPENSATED 1. PRN BiPAP during day, cont at night. 2. change solumedrol to 40 bid 3. No need for antibiotics. 4. Nebulized treatments. 5. Nicotine replacement 6. The patient instructed on the importance of discontinuing tobacco use. 7. increase activity 8. Pt on home O2, 2 liters 24 hr discussed w pt MARITZA JAMES MD Sep 04, 2018 09:30
--- NOTE | 2018-09-04 10:58 | PDOC ---
PROGRESS NOTES Chief Complaint Chief Complaint impression Hypercapnic respiratory failure. Chronic obstructive pulmonary disease. Tobacco dependent. Gastroesophageal reflux. Hypertension. hyperlipidemia 38 min pt exam, chart review, > 50% of time spent with exam, chart review, pt care coordination History of Present Illness History of Present Illness 09-03-2018 Patient was seen and examined He says that he still feels short of breath and has begun to cough up sputum today He is still on 3L of O2 and saturating at 94% 09-02-2018 Patient was seen and examined He says that he was not feeling very well today and that he was very short of breath He is still on 3L of O2 saturating at 95% Pt seen and examined Patient is a pleasant 68 year old male He was not in acute distress He says that he is feeling better and is saturating 94% on 3L O2 09/04 still wheezing when supine Vitals Vitals Vital Signs Date Time Temp Pulse Resp B/P (MAP) Pulse Ox O2 Delivery O2 Flow Rate FiO2 09/04/18 08:34 88 140/82 09/04/18 08:01 91 Nasal Cannula 3.0 09/04/18 07:00 97.5 18 97.5 Physical Exam General: Alert, Oriented X3, Cooperative, mild distress Heart: Regular rate (SR), Normal S1, Normal S2, Other (2/6 systolic murmur to LLS border) Lungs: Other (decrease bs mild exp wheezing) Abdomen: Soft, No tenderness Extremities: No clubbing, No cyanosis, Other (1+ pitting edema more to LLE) Skin: No breakdown, No significant lesion Labs LABS Laboratory Tests Test 09/03/18 12:25 09/04/18 04:00 Sodium Level 136 mmol/L (136-145) Potassium Level 4.7 mmol/L (3.5-5.1) Chloride Level 95 mmol/L (98-107) Carbon Dioxide Level 39 mmol/L (21-32) Anion Gap 2 (6-14) Blood Urea Nitrogen 31 mg/dL (8-26) Creatinine 0.7 mg/dL (0.7-1.3) Estimated GFR (Cockcroft-Gault) 111.8 BUN/Creatinine Ratio 44 (6-20) Glucose Level 336 mg/dL (70-99) Calcium Level 9.1 mg/dL (8.5-10.1) Total Bilirubin 0.3 mg/dL (0.2-1.0) Aspartate Amino Transf (AST/SGOT) 10 U/L (15-37) Alanine Aminotransferase (ALT/SGPT) 28 U/L (16-63) Alkaline Phosphatase 87 U/L (46-116) Total Protein 6.6 g/dL (6.4-8.2) Albumin 3.4 g/dL (3.4-5.0) Albumin/Globulin Ratio 1.1 (1.0-1.7) White Blood Count 13.2 x10^3/uL (4.0-11.0) Red Blood Count 4.08 x10^6/uL (4.30-5.70) Hemoglobin 12.4 g/dL (13.0-17.5) Hematocrit 38.0 % (39.0-53.0) Mean Corpuscular Volume 93 fL (79-100) Mean Corpuscular Hemoglobin 31 pg (25-35) Mean Corpuscular Hemoglobin Concent 33 g/dL (31-37) Red Cell Distribution Width 15.6 % (11.5-14.5) Platelet Count 320 x10^3/uL (140-400) Neutrophils (%) (Auto) 93 % (31-73) Lymphocytes (%) (Auto) 4 % (24-48) Monocytes (%) (Auto) 4 % (0-9) Eosinophils (%) (Auto) 0 % (0-3) Basophils (%) (Auto) 0 % (0-3) Neutrophils # (Auto) 12.2 x10^3uL (1.8-7.7) Lymphocytes # (Auto) 0.5 x10^3/uL (1.0-4.8) Monocytes # (Auto) 0.5 x10^3/uL (0.0-1.1) Eosinophils # (Auto) 0.0 x10^3/uL (0.0-0.7) Basophils # (Auto) 0.0 x10^3/uL (0.0-0.2) Segmented Neutrophils % 92 % (35-66) Band Neutrophils % 6 % (0-9) Lymphocytes % 1 % (24-48) Metamyelocytes % 1 % (0-0) Platelet Estimate Adequate (ADEQUATE) Assessment and Plan Assessmemt and Plan Problems Medical Problems: (1) Acute and chronic respiratory failure with hypoxia Status: Acute (2) COPD exacerbation Status: Acute Comment Review of Relevant I have reviewed the following items zaire (where applicable) has been applied. Labs Laboratory Tests Test 09/03/18 12:25 09/04/18 04:00 Sodium Level 136 mmol/L (136-145) Potassium Level 4.7 mmol/L (3.5-5.1) Chloride Level 95 mmol/L (98-107) Carbon Dioxide Level 39 mmol/L (21-32) Anion Gap 2 (6-14) Blood Urea Nitrogen 31 mg/dL (8-26) Creatinine 0.7 mg/dL (0.7-1.3) Estimated GFR (Cockcroft-Gault) 111.8 BUN/Creatinine Ratio 44 (6-20) Glucose Level 336 mg/dL (70-99) Calcium Level 9.1 mg/dL (8.5-10.1) Total Bilirubin 0.3 mg/dL (0.2-1.0) Aspartate Amino Transf (AST/SGOT) 10 U/L (15-37) Alanine Aminotransferase (ALT/SGPT) 28 U/L (16-63) Alkaline Phosphatase 87 U/L (46-116) Total Protein 6.6 g/dL (6.4-8.2) Albumin 3.4 g/dL (3.4-5.0) Albumin/Globulin Ratio 1.1 (1.0-1.7) White Blood Count 13.2 x10^3/uL (4.0-11.0) Red Blood Count 4.08 x10^6/uL (4.30-5.70) Hemoglobin 12.4 g/dL (13.0-17.5) Hematocrit 38.0 % (39.0-53.0) Mean Corpuscular Volume 93 fL (79-100) Mean Corpuscular Hemoglobin 31 pg (25-35) Mean Corpuscular Hemoglobin Concent 33 g/dL (31-37) Red Cell Distribution Width 15.6 % (11.5-14.5) Platelet Count 320 x10^3/uL (140-400) Neutrophils (%) (Auto) 93 % (31-73) Lymphocytes (%) (Auto) 4 % (24-48) Monocytes (%) (Auto) 4 % (0-9) Eosinophils (%) (Auto) 0 % (0-3) Basophils (%) (Auto) 0 % (0-3) Neutrophils # (Auto) 12.2 x10^3uL (1.8-7.7) Lymphocytes # (Auto) 0.5 x10^3/uL (1.0-4.8) Monocytes # (Auto) 0.5 x10^3/uL (0.0-1.1) Eosinophils # (Auto) 0.0 x10^3/uL (0.0-0.7) Basophils # (Auto) 0.0 x10^3/uL (0.0-0.2) Segmented Neutrophils % 92 % (35-66) Band Neutrophils % 6 % (0-9) Lymphocytes % 1 % (24-48) Metamyelocytes % 1 % (0-0) Platelet Estimate Adequate (ADEQUATE) Laboratory Tests Test 09/03/18 12:25 09/04/18 04:00 Sodium Level 136 mmol/L (136-145) Potassium Level 4.7 mmol/L (3.5-5.1) Chloride Level 95 mmol/L (98-107) Carbon Dioxide Level 39 mmol/L (21-32) Anion Gap 2 (6-14) Blood Urea Nitrogen 31 mg/dL (8-26) Creatinine 0.7 mg/dL (0.7-1.3) Estimated GFR (Cockcroft-Gault) 111.8 BUN/Creatinine Ratio 44 (6-20) Glucose Level 336 mg/dL (70-99) Calcium Level 9.1 mg/dL (8.5-10.1) Total Bilirubin 0.3 mg/dL (0.2-1.0) Aspartate Amino Transf (AST/SGOT) 10 U/L (15-37) Alanine Aminotransferase (ALT/SGPT) 28 U/L (16-63) Alkaline Phosphatase 87 U/L (46-116) Total Protein 6.6 g/dL (6.4-8.2) Albumin 3.4 g/dL (3.4-5.0) Albumin/Globulin Ratio 1.1 (1.0-1.7) White Blood Count 13.2 x10^3/uL (4.0-11.0) Red Blood Count 4.08 x10^6/uL (4.30-5.70) Hemoglobin 12.4 g/dL (13.0-17.5) Hematocrit 38.0 % (39.0-53.0) Mean Corpuscular Volume 93 fL (79-100) Mean Corpuscular Hemoglobin 31 pg (25-35) Mean Corpuscular Hemoglobin Concent 33 g/dL (31-37) Red Cell Distribution Width 15.6 % (11.5-14.5) Platelet Count 320 x10^3/uL (140-400) Neutrophils (%) (Auto) 93 % (31-73) Lymphocytes (%) (Auto) 4 % (24-48) Monocytes (%) (Auto) 4 % (0-9) Eosinophils (%) (Auto) 0 % (0-3) Basophils (%) (Auto) 0 % (0-3) Neutrophils # (Auto) 12.2 x10^3uL (1.8-7.7) Lymphocytes # (Auto) 0.5 x10^3/uL (1.0-4.8) Monocytes # (Auto) 0.5 x10^3/uL (0.0-1.1) Eosinophils # (Auto) 0.0 x10^3/uL (0.0-0.7) Basophils # (Auto) 0.0 x10^3/uL (0.0-0.2) Segmented Neutrophils % 92 % (35-66) Band Neutrophils % 6 % (0-9) Lymphocytes % 1 % (24-48) Metamyelocytes % 1 % (0-0) Platelet Estimate Adequate (ADEQUATE) Medications Current Medications Albuterol/ Ipratropium (Duoneb) 3 ml STK-MED ONCE .ROUTE ; Start 08/30/18 at 14:37; Stop 08/30/18 at 14:38; Status DC Albuterol/ Ipratropium (Duoneb) 3 ml 1X ONCE NEB Last administered on 08/30/18at 14:53; Start 08/30/18 at 15:00; Stop 08/30/18 at 15:01; Status DC Methylprednisolone Sodium Succinate (SOLU-Medrol 125MG VIAL) 125 mg 1X ONCE IV Last administered on 08/30/18at 15:03; Start 08/30/18 at 15:00; Stop 08/30/18 at 15:01; Status DC Sodium Chloride 1,000 ml @ 1,000 mls/hr 1X ONCE IV Last administered on 08/30/18 15:05; Start 08/30/18 at 15:00; Stop 08/30/18 at 15:59; Status DC Methylprednisolone Sodium Succinate (SOLU-Medrol 125MG VIAL) 80 mg Q8HRS IV Last administered on 09/02/18 06:19; Start 08/30/18 at 22:00; Stop 09/02/18 at 10:47; Status DC Furosemide (Lasix) 20 mg DAILY PO Last administered on 09/04/18 08:33; Start 08/31/18 at 09:00 Albuterol/ Ipratropium (Duoneb) 3 ml RTQID NEB Last administered on 09/04/18 07:59; Start 08/30/18 at 20:00 Metoprolol Tartrate (Lopressor) 12.5 mg BID PO Last administered on 09/04/18 08:34; Start 08/30/18 at 21:00 Pantoprazole Sodium (Protonix) 40 mg DAILY PO Last administered on 09/04/18 08:33; Start 08/31/18 at 09:00 Potassium Chloride (Klor-Con) 10 meq [id number] PO Last administered on 09/04/18 08:33; Start 08/31/18 at 08:00 Tamsulosin HCl (Flomax) 0.4 mg DAILY PO Last administered on 09/04/18 08:33; Start 08/31/18 at 09:00 Non-Formulary Medication (Fluticasone/ Salmeterol (Advair 500-50 Diskus)) 1 puff BID IH ; Start 08/30/18 at 21:00; Status UNV Al Hydroxide/Mg Hydroxide (Mylanta Plus Xs) 30 ml PRN Q6HRS PRN PO HEARTBURN / GAS Last administered on 09/03/18 19:40; Start 08/30/18 at 20:30 Nicotine (Nicoderm Cq 7mg) 1 patch DAILY TD Last administered on 09/04/18 08:33; Start 08/31/18 at 09:00 Sennosides (Senna) 8.6 mg BID PO Last administered on 09/04/18 08:34; Start 08/30/18 at 21:00 Benzonatate (Tessalon Perle) 100 mg [id number] PO Last administered on 09/04/18 08:33; Start 08/30/18 at 21:00 Budesonide (Pulmicort) 0.5 mg RTBID NEB Last administered on 09/04/18 07:59; Start 08/30/18 at 22:00 Guaifenesin/ Codeine Phosphate (Robitussin Ac) 5 ml PRN Q4HRS PRN PO COUGH Last administered on 09/01/18 08:50; Start 08/31/18 at 09:45 Enoxaparin Sodium (Lovenox 40mg Syringe) 40 mg Q24H SQ Last administered on 09/03/18 13:31; Start 08/31/18 at 13:00 Albuterol Sulfate (Ventolin Neb Soln) 2.5 mg PRN Q4HRS PRN NEB SHORTNESS OF BREATH Last administered on 09/04/18 04:38; Start 09/01/18 at 02:45 Atorvastatin Calcium (Lipitor) 10 mg QHS PO Last administered on 09/03/18 21:39; Start 09/01/18 at 21:00 Sodium Chloride (Saline Mist Nasal) 1 hoang PRN Q1HR PRN NS NASAL CONGESTION Last administered on 09/04/18 08:38; Start 09/01/18 at 20:00 Methylprednisolone Sodium Succinate (SOLU-Medrol 40MG VIAL) 40 mg Q8HRS IV Last administered on 09/04/18 06:10; Start 09/02/18 at 14:00; Stop 09/04/18 at 09:31; Status DC Methylprednisolone Sodium Succinate (SOLU-Medrol 40MG VIAL) 40 mg Q12HR IV ; Start 09/04/18 at 21:00 Active Scripts Active Advair 500-50 Diskus (Fluticasone/Salmeterol) 1 Each Disk.w.dev 1 Puff IH BID Duoneb 0.5-3(2.5) Mg/3 Ml (Albuterol/Ipratropium) 3 Ml Ampul.neb 3 Ml NEB RTQID MDD 1 Reported Senna (Sennosides) 8.6 Mg Tablet 8.6 Mg PO BID NICODERM CQ 7mg (Nicotine) 1 Each Patch.td24 1 Patch TD DAILY Maalox Advanced Suspension (Mag Hydrox/Aluminum Hyd/Simeth) 355 Ml Oral.susp 355 Ml PO PRN Q6HRS PRN Protonix (Pantoprazole Sodium) 40 Mg Tablet.dr 40 Mg PO DAILY Potassium Chloride 10 Meq Capsule.er 10 Meq PO DAILY Lasix (Furosemide) 20 Mg Tablet 1 Tab PO DAILY Flomax (Tamsulosin Hcl) 0.4 Mg Cap.er.24h 1 Cap PO DAILY Metoprolol Tartrate 25 Mg Tablet 12.5 Mg PO BID Vitals/I & O Vital Sign - Last 24 Hours 09/03/18 09/03/18 09/03/18 09/03/18 11:00 12:08 15:00 16:26 Temp 97.5 97.5 97.5 97.5 Pulse 96 97 Resp 18 18 B/P (MAP) 130/55 (80) 146/77 (100) Pulse Ox 90 91 O2 Delivery Nasal Cannula Nasal Cannula Nasal Cannula Nasal Cannula O2 Flow Rate 3.0 3.0 3.0 3.0 09/03/18 09/03/18 09/03/18 09/03/18 19:35 19:35 19:40 20:00 Temp 97.6 97.6 Pulse 89 Resp 20 B/P (MAP) 113/72 (86) Pulse Ox 90 96 90 O2 Delivery Nasal Cannula Nasal Cannula Nasal Cannula Nasal Cannula O2 Flow Rate 3.0 3.0 3.0 3.0 09/03/18 09/03/18 09/03/18 09/04/18 21:28 21:41 22:57 00:02 Temp 97.9 97.9 Pulse 100 98 Resp 20 B/P (MAP) 132/77 131/79 (96) Pulse Ox 92 95 O2 Delivery BiPAP/CPAP Nasal Cannula BiPAP/CPAP O2 Flow Rate 3.0 09/04/18 09/04/18 09/04/18 09/04/18 01:49 03:00 04:38 07:00 Temp 98.2 97.5 98.2 97.5 Pulse 92 88 Resp 23 18 B/P (MAP) 128/74 (92) 140/82 (101) Pulse Ox 95 96 94 O2 Delivery BiPAP/CPAP BiPAP/CPAP Nasal Cannula Nasal Cannula O2 Flow Rate 3.0 3.0 09/04/18 09/04/18 09/04/18 08:00 08:01 08:34 Pulse 88 B/P (MAP) 140/82 Pulse Ox 91 O2 Delivery Nasal Cannula Nasal Cannula O2 Flow Rate 3.0 3.0 Intake and Output 0 09/03/18 09/03/18 09/04/18 14:59 22:59 06:59 Intake Total 200 ml Output Total 1150 ml 600 ml Balance -950 ml -600 ml GARY BAEZ MD Sep 04, 2018 10:58
[2018-09-04 11:00] VITALS: BP 142/70
[2018-09-04] MEDS: ENOXAPARIN 40 MG/0.4 ML SYRINGE. SQ SCH (12:22)
[2018-09-04 15:00] VITALS: BP 131/74
[2018-09-04 19:20] VITALS: BP 130/77
[2018-09-04] MEDS: MAG HYDROX/ALUMINUM HYD/SIMETH 30 ML ORAL.SUSP PO PRN (21:03)
[2018-09-04] MEDS: ATORVASTATIN CALCIUM 10 MG TABLET. PO SCH (21:04)
[2018-09-04 23:14] VITALS: BP 125/72
[2018-09-05 03:15] VITALS: BP 114/71
[2018-09-05 04:59] LABS: BASO % 0 % (0-3); EOS % 0 % (0-3); HEMATOCRIT 36.6 % (39.0-53.0); HEMOGLOBIN 11.9 g/dL (13.0-17.5); LYMPH # 0.6 x10^3/uL (1.0-4.8); LYMPH % 5 % (24-48); MEAN CORPUSCULAR HEMOGLOBIN 30 pg (25-35); MEAN CORPUSCULAR HGB CONC 33 g/dL (31-37); MEAN CORPUSCULAR VOLUME 92 fL (79-100); MONO # 0.7 x10^3/uL (0.0-1.1); MONO % 5 % (0-9); NEUT # 11.2 x10^3uL (1.8-7.7); NEUT % 90 % (31-73); PLATELET COUNT 321 x10^3/uL (140-400); RED BLOOD COUNT 3.98 x10^6/uL (4.30-5.70); RED CELL DISTRIBUTION WIDTH 15.6 % (11.5-14.5); WHITE BLOOD COUNT 12.5 x10^3/uL (4.0-11.0)
[2018-09-05 05:19] LABS: CREATININE 0.6 mg/dL (0.7-1.3); GFR 133.6
[2018-09-05 05:25] LABS: POTASSIUM 5.2 mmol/L (3.5-5.1)
[2018-09-05 07:00] VITALS: BP 132/79
[2018-09-05] MEDS: POTASSIUM CHLORIDE 10 MEQ TABLET.ER. PO SCH (08:00)
[2018-09-05] MEDS: NICOTINE 7MG PATCH. TD SCH (08:30)
[2018-09-05] MEDS: methylPREDNISolone SOD SUCC PF 40 MG/ML VIAL. IV SCH (08:30)
[2018-09-05] MEDS: PANTOPRAZOLE 40 MG TABLET.DR. PO SCH (08:30)
[2018-09-05] MEDS: METOPROLOL TART IMMED RELEASE 25 MG TABLET. PO SCH ×2 (08:31→21:33)
[2018-09-05] MEDS: SENNOSIDES 8.6 MG TABLET PO SCH ×2 (08:32→21:30)
[2018-09-05] MEDS: TAMSULOSIN 0.4 MG CAP.ER.24H. PO SCH (08:32)
[2018-09-05] MEDS: FUROSEMIDE 20 MG TABLET PO SCH (08:32)
[2018-09-05] MEDS: BENZONATATE 100 MG CAPSULE. PO SCH ×3 (08:32→21:30)
[2018-09-05] MEDS: BUDESONIDE 0.5 MG/2 ML NEBU. NEB SCH ×2 (08:34→20:28)
[2018-09-05] MEDS: IPRATRPIUM/ALBUTEROL 0.5/2.5MG 3 ML NEBU. NEB SCH ×4 (08:34→20:28)
--- NOTE | 2018-09-05 08:54 | PDOC ---
PULMONARY PROGRESS NOTES Subjective feels better, used bipap last night, sob cough better, no pain, on home 02 Vitals Vital Signs Date Time Temp Pulse Resp B/P (MAP) Pulse Ox O2 Delivery O2 Flow Rate FiO2 09/05/18 08:34 97 Nasal Cannula 3.0 09/05/18 08:31 88 132/79 09/05/18 03:15 97.6 18 97.6 ROS: No Nausea, No Chest Pain, No Abdominal Pain, No Increase Cough (VERY POOR AIRFLOW) General: Alert, No acute distress HEENT: Other (nc at perrl ) Lungs: Other (decrease bs mild exp wheezing) Cardiovascular: S1, S2 Abdomen: Soft, Non-tender Neuro Exam: Alert Extremities: No Edema, Other Skin: Warm Labs Laboratory Tests Test 09/03/18 12:25 09/04/18 04:00 09/05/18 04:30 Sodium Level 136 mmol/L (136-145) 136 mmol/L (136-145) Potassium Level 4.7 mmol/L (3.5-5.1) 5.2 mmol/L (3.5-5.1) Chloride Level 95 mmol/L (98-107) 95 mmol/L (98-107) Carbon Dioxide Level 39 mmol/L (21-32) 41 mmol/L (21-32) Anion Gap 2 (6-14) 0 (6-14) Blood Urea Nitrogen 31 mg/dL (8-26) 28 mg/dL (8-26) Creatinine 0.7 mg/dL (0.7-1.3) 0.6 mg/dL (0.7-1.3) Estimated GFR (Cockcroft-Gault) 111.8 133.6 BUN/Creatinine Ratio 44 (6-20) Glucose Level 336 mg/dL (70-99) 253 mg/dL (70-99) Calcium Level 9.1 mg/dL (8.5-10.1) 9.0 mg/dL (8.5-10.1) Total Bilirubin 0.3 mg/dL (0.2-1.0) Aspartate Amino Transf (AST/SGOT) 10 U/L (15-37) Alanine Aminotransferase (ALT/SGPT) 28 U/L (16-63) Alkaline Phosphatase 87 U/L (46-116) Total Protein 6.6 g/dL (6.4-8.2) Albumin 3.4 g/dL (3.4-5.0) Albumin/Globulin Ratio 1.1 (1.0-1.7) White Blood Count 13.2 x10^3/uL (4.0-11.0) 12.5 x10^3/uL (4.0-11.0) Red Blood Count 4.08 x10^6/uL (4.30-5.70) 3.98 x10^6/uL (4.30-5.70) Hemoglobin 12.4 g/dL (13.0-17.5) 11.9 g/dL (13.0-17.5) Hematocrit 38.0 % (39.0-53.0) 36.6 % (39.0-53.0) Mean Corpuscular Volume 93 fL (79-100) 92 fL (79-100) Mean Corpuscular Hemoglobin 31 pg (25-35) 30 pg (25-35) Mean Corpuscular Hemoglobin Concent 33 g/dL (31-37) 33 g/dL (31-37) Red Cell Distribution Width 15.6 % (11.5-14.5) 15.6 % (11.5-14.5) Platelet Count 320 x10^3/uL (140-400) 321 x10^3/uL (140-400) Neutrophils (%) (Auto) 93 % (31-73) 90 % (31-73) Lymphocytes (%) (Auto) 4 % (24-48) 5 % (24-48) Monocytes (%) (Auto) 4 % (0-9) 5 % (0-9) Eosinophils (%) (Auto) 0 % (0-3) 0 % (0-3) Basophils (%) (Auto) 0 % (0-3) 0 % (0-3) Neutrophils # (Auto) 12.2 x10^3uL (1.8-7.7) 11.2 x10^3uL (1.8-7.7) Lymphocytes # (Auto) 0.5 x10^3/uL (1.0-4.8) 0.6 x10^3/uL (1.0-4.8) Monocytes # (Auto) 0.5 x10^3/uL (0.0-1.1) 0.7 x10^3/uL (0.0-1.1) Eosinophils # (Auto) 0.0 x10^3/uL (0.0-0.7) 0.0 x10^3/uL (0.0-0.7) Basophils # (Auto) 0.0 x10^3/uL (0.0-0.2) 0.0 x10^3/uL (0.0-0.2) Segmented Neutrophils % 92 % (35-66) Band Neutrophils % 6 % (0-9) Lymphocytes % 1 % (24-48) Metamyelocytes % 1 % (0-0) Platelet Estimate Adequate (ADEQUATE) Magnesium Level 2.4 mg/dL (1.8-2.4) Laboratory Tests Test 09/05/18 04:30 White Blood Count 12.5 x10^3/uL (4.0-11.0) Red Blood Count 3.98 x10^6/uL (4.30-5.70) Hemoglobin 11.9 g/dL (13.0-17.5) Hematocrit 36.6 % (39.0-53.0) Mean Corpuscular Volume 92 fL (79-100) Mean Corpuscular Hemoglobin 30 pg (25-35) Mean Corpuscular Hemoglobin Concent 33 g/dL (31-37) Red Cell Distribution Width 15.6 % (11.5-14.5) Platelet Count 321 x10^3/uL (140-400) Neutrophils (%) (Auto) 90 % (31-73) Lymphocytes (%) (Auto) 5 % (24-48) Monocytes (%) (Auto) 5 % (0-9) Eosinophils (%) (Auto) 0 % (0-3) Basophils (%) (Auto) 0 % (0-3) Neutrophils # (Auto) 11.2 x10^3uL (1.8-7.7) Lymphocytes # (Auto) 0.6 x10^3/uL (1.0-4.8) Monocytes # (Auto) 0.7 x10^3/uL (0.0-1.1) Eosinophils # (Auto) 0.0 x10^3/uL (0.0-0.7) Basophils # (Auto) 0.0 x10^3/uL (0.0-0.2) Sodium Level 136 mmol/L (136-145) Potassium Level 5.2 mmol/L (3.5-5.1) Chloride Level 95 mmol/L (98-107) Carbon Dioxide Level 41 mmol/L (21-32) Anion Gap 0 (6-14) Blood Urea Nitrogen 28 mg/dL (8-26) Creatinine 0.6 mg/dL (0.7-1.3) Estimated GFR (Cockcroft-Gault) 133.6 Glucose Level 253 mg/dL (70-99) Calcium Level 9.0 mg/dL (8.5-10.1) Magnesium Level 2.4 mg/dL (1.8-2.4) Medications Active Scripts Medications Dose Route/Sig Max Daily Dose Days Date Category Advair 500-50 Diskus (Fluticasone/Salmeterol) 1 Each Disk.w.dev 1 Puff IH BID 08/08/18 Rx NICODERM CQ 21mg (Nicotine) 1 Each Patch.td24 1 Patch TP DAILY 08/08/18 Rx Doxycycline Hyclate 100 Mg Tablet 100 Mg PO BID MDD 1 08/08/18 Rx Culturelle (Lactobacillus Rhamnosus Gg) 1 Each Cap.sprink 1 Cap PO BID 14 05/20/18 Rx Simethicone 80 Mg Tab.chew 80 Mg PO PRN AFTMEALHC PRN 14 05/20/18 Rx Senna (Sennosides) 8.6 Mg Tablet 8.6 Mg PO BID 05/18/18 Reported NICODERM CQ 7mg (Nicotine) 1 Each Patch.td24 1 Patch TD DAILY 05/18/18 Reported Maalox Advanced Suspension (Mag Hydrox/Aluminum Hyd/Simeth) 355 Ml Oral.susp 355 Ml PO PRN Q6HRS PRN 05/18/18 Reported Duoneb 0.5-3(2.5) Mg/3 Ml (Albuterol/Ipratropium) 3 Ml Ampul.neb 3 Ml NEB RTQID MDD 1 05/10/18 Rx Protonix (Pantoprazole Sodium) 40 Mg Tablet.dr 40 Mg PO DAILY 11/18/15 Reported Potassium Chloride 10 Meq Capsule.er 10 Meq PO DAILY 11/18/15 Reported Lasix (Furosemide) 20 Mg Tablet 1 Tab PO DAILY 11/18/15 Reported Advair 500-50 Diskus (Fluticasone/Salmeterol) 1 Each Disk.w.dev 1 Puff IH DAILY 10/11/15 Reported Spiriva (Tiotropium Beverly) 18 Mcg Cap.w.dev 1 Cap IH DAILY 10/11/15 Reported Flomax (Tamsulosin Hcl) 0.4 Mg Cap.er.24h 1 Cap PO DAILY 10/11/15 Reported Metoprolol Tartrate 25 Mg Tablet 12.5 Mg PO BID 10/11/15 Reported Impression . IMPRESSION: 1. Acute on chronic hypoxemic/ hypercapnic respiratory failure. 2. Acute exacerbation of chronic obstructive pulmonary disease. 3. Tobacco dependent. 4. Gastroesophageal reflux. 5. Hypertension. Plan . ABG COMPENSATED 1. PRN BiPAP during day, cont at night. 2. change solumedrol to prednisone 40 mg daily w taper by 10 mg q 5 d (slow taper) 3. No need for antibiotics. 4. Nebulized treatments. 5. Nicotine replacement, quit smoking for ever. 6. The patient instructed on the importance of discontinuing tobacco use. 7. increase activity 8. Pt on home O2, 2 liters 24 hr discussed w pt MARITZA JAMES MD Sep 05, 2018 08:54
[2018-09-05] MEDS: predniSONE 20 MG TABLET PO SCH (09:10)
[2018-09-05 11:00] VITALS: BP 164/98
--- NOTE | 2018-09-05 11:00 | PDOC ---
PROGRESS NOTES Chief Complaint Chief Complaint impression SEVERE Hypercapnic respiratory failure. Chronic obstructive pulmonary disease. Tobacco dependent. Gastroesophageal reflux. Hypertension. hyperlipidemia There is moderate pulmonary hypertension. The PA pressure was estimated at 50 mmHg. poor long-term prognosis per my chart review 40 min pt exam, chart review, > 50% of time spent with exam, chart review, pt care coordination History of Present Illness History of Present Illness 09-03-2018 Patient was seen and examined He says that he still feels short of breath and has begun to cough up sputum today He is still on 3L of O2 and saturating at 94% 09-02-2018 Patient was seen and examined He says that he was not feeling very well today and that he was very short of breath He is still on 3L of O2 saturating at 95% Pt seen and examined Patient is a pleasant 68 year old male He was not in acute distress He says that he is feeling better and is saturating 94% on 3L O2 09/04 still wheezing when supine 09/05 USED BIPAP LAST NIGHT, appears in less distress, needs cpcp at home re- programmed free t4 pending Vitals Vitals Vital Signs Date Time Temp Pulse Resp B/P (MAP) Pulse Ox O2 Delivery O2 Flow Rate FiO2 09/05/18 08:34 97 Nasal Cannula 3.0 09/05/18 08:31 88 132/79 09/05/18 07:00 98.4 20 98.4 Physical Exam General: Alert, Oriented X3, Cooperative, mild distress Heart: Regular rate (SR), Normal S1, Normal S2, Other (2/6 systolic murmur to LLS border) Lungs: Other (decrease bs mild exp wheezing) Abdomen: Soft, No tenderness Extremities: No clubbing, No cyanosis, Other (1+ pitting edema more to LLE) Skin: No breakdown, No significant lesion Labs LABS LEFT VENTRICLE The left ventricle is normal size. There is normal left ventricular wall thickness. Left ventricle systolic function is normal. The Ejection Fraction is 50-55%. Septal motion consistent with increased right ventricular systolic pressure. Transmitral Doppler flow pattern is Grade I-abnormal relaxation pattern. RIGHT VENTRICLE The right ventricle is mildly dilated. There is normal right ventricular wall thickness. Systolic function is borderline reduced. ATRIA The left atrium size is normal. The right atrium is mildly dilated. The interatrial septum is intact with no evidence for an atrial septal defect or patent foramen ovale as noted on 2-D or Doppler imaging. AORTIC VALVE The aortic valve is normal in structure and function. The aortic valve is trileaflet. Doppler and Color Flow revealed no significant aortic regurgitation. There is no significant aortic valvular stenosis. MITRAL VALVE The mitral valve is thickened but opens well. There is no evidence of mitral valve prolapse. There is no mitral valve stenosis. Doppler and Color Flow revealed no mitral valve regurgitation noted. TRICUSPID VALVE The tricuspid valve is normal in structure and function. Doppler and Color Flow revealed trace to mild tricuspid regurgitation. There is moderate pulmonary hypertension. The PA pressure was estimated at 50 mmHg. There is no tricuspid valve prolapse or vegetation. There is no tricuspid valve stenosis. PULMONIC VALVE The pulmonary valve is normal in structure and function. Doppler and Color Flow revealed no pulmonic valvular regurgitation. There is no pulmonic valvular stenosis. GREAT VESSELS The aortic root is mildly enlarged. The ascending aorta is normal in size. The IVC is dilated and collapses <50% with inspiration. PERICARDIAL EFFUSION There is no evidence of significant pericardial effusion. Critical Notification Critical Value: No <Conclusion> Left ventricle systolic function is normal. The Ejection Fraction is 50-55%. Transmitral Doppler flow pattern is Grade I-abnormal relaxation pattern. The right ventricle is mildly dilated. Trace to mild tricuspid regurgitation. There is moderate pulmonary hypertension. The PA pressure was estimated at 50 mmHg. There is no evidence of significant pericardial effusion. Signed by : Alexey Neal, Electronically Approved : 05/04/2018 12:23:06 Laboratory Tests Test 09/05/18 04:30 White Blood Count 12.5 x10^3/uL (4.0-11.0) Red Blood Count 3.98 x10^6/uL (4.30-5.70) Hemoglobin 11.9 g/dL (13.0-17.5) Hematocrit 36.6 % (39.0-53.0) Mean Corpuscular Volume 92 fL (79-100) Mean Corpuscular Hemoglobin 30 pg (25-35) Mean Corpuscular Hemoglobin Concent 33 g/dL (31-37) Red Cell Distribution Width 15.6 % (11.5-14.5) Platelet Count 321 x10^3/uL (140-400) Neutrophils (%) (Auto) 90 % (31-73) Lymphocytes (%) (Auto) 5 % (24-48) Monocytes (%) (Auto) 5 % (0-9) Eosinophils (%) (Auto) 0 % (0-3) Basophils (%) (Auto) 0 % (0-3) Neutrophils # (Auto) 11.2 x10^3uL (1.8-7.7) Lymphocytes # (Auto) 0.6 x10^3/uL (1.0-4.8) Monocytes # (Auto) 0.7 x10^3/uL (0.0-1.1) Eosinophils # (Auto) 0.0 x10^3/uL (0.0-0.7) Basophils # (Auto) 0.0 x10^3/uL (0.0-0.2) Sodium Level 136 mmol/L (136-145) Potassium Level 5.2 mmol/L (3.5-5.1) Chloride Level 95 mmol/L (98-107) Carbon Dioxide Level 41 mmol/L (21-32) Anion Gap 0 (6-14) Blood Urea Nitrogen 28 mg/dL (8-26) Creatinine 0.6 mg/dL (0.7-1.3) Estimated GFR (Cockcroft-Gault) 133.6 Glucose Level 253 mg/dL (70-99) Calcium Level 9.0 mg/dL (8.5-10.1) Magnesium Level 2.4 mg/dL (1.8-2.4) Assessment and Plan Assessmemt and Plan Problems Medical Problems: (1) Acute and chronic respiratory failure with hypoxia Status: Acute (2) COPD exacerbation Status: Acute Comment Review of Relevant I have reviewed the following items zaire (where applicable) has been applied. Labs Laboratory Tests Test 09/03/18 12:25 09/04/18 04:00 09/05/18 04:30 Sodium Level 136 mmol/L (136-145) 136 mmol/L (136-145) Potassium Level 4.7 mmol/L (3.5-5.1) 5.2 mmol/L (3.5-5.1) Chloride Level 95 mmol/L (98-107) 95 mmol/L (98-107) Carbon Dioxide Level 39 mmol/L (21-32) 41 mmol/L (21-32) Anion Gap 2 (6-14) 0 (6-14) Blood Urea Nitrogen 31 mg/dL (8-26) 28 mg/dL (8-26) Creatinine 0.7 mg/dL (0.7-1.3) 0.6 mg/dL (0.7-1.3) Estimated GFR (Cockcroft-Gault) 111.8 133.6 BUN/Creatinine Ratio 44 (6-20) Glucose Level 336 mg/dL (70-99) 253 mg/dL (70-99) Calcium Level 9.1 mg/dL (8.5-10.1) 9.0 mg/dL (8.5-10.1) Total Bilirubin 0.3 mg/dL (0.2-1.0) Aspartate Amino Transf (AST/SGOT) 10 U/L (15-37) Alanine Aminotransferase (ALT/SGPT) 28 U/L (16-63) Alkaline Phosphatase 87 U/L (46-116) Total Protein 6.6 g/dL (6.4-8.2) Albumin 3.4 g/dL (3.4-5.0) Albumin/Globulin Ratio 1.1 (1.0-1.7) White Blood Count 13.2 x10^3/uL (4.0-11.0) 12.5 x10^3/uL (4.0-11.0) Red Blood Count 4.08 x10^6/uL (4.30-5.70) 3.98 x10^6/uL (4.30-5.70) Hemoglobin 12.4 g/dL (13.0-17.5) 11.9 g/dL (13.0-17.5) Hematocrit 38.0 % (39.0-53.0) 36.6 % (39.0-53.0) Mean Corpuscular Volume 93 fL (79-100) 92 fL (79-100) Mean Corpuscular Hemoglobin 31 pg (25-35) 30 pg (25-35) Mean Corpuscular Hemoglobin Concent 33 g/dL (31-37) 33 g/dL (31-37) Red Cell Distribution Width 15.6 % (11.5-14.5) 15.6 % (11.5-14.5) Platelet Count 320 x10^3/uL (140-400) 321 x10^3/uL (140-400) Neutrophils (%) (Auto) 93 % (31-73) 90 % (31-73) Lymphocytes (%) (Auto) 4 % (24-48) 5 % (24-48) Monocytes (%) (Auto) 4 % (0-9) 5 % (0-9) Eosinophils (%) (Auto) 0 % (0-3) 0 % (0-3) Basophils (%) (Auto) 0 % (0-3) 0 % (0-3) Neutrophils # (Auto) 12.2 x10^3uL (1.8-7.7) 11.2 x10^3uL (1.8-7.7) Lymphocytes # (Auto) 0.5 x10^3/uL (1.0-4.8) 0.6 x10^3/uL (1.0-4.8) Monocytes # (Auto) 0.5 x10^3/uL (0.0-1.1) 0.7 x10^3/uL (0.0-1.1) Eosinophils # (Auto) 0.0 x10^3/uL (0.0-0.7) 0.0 x10^3/uL (0.0-0.7) Basophils # (Auto) 0.0 x10^3/uL (0.0-0.2) 0.0 x10^3/uL (0.0-0.2) Segmented Neutrophils % 92 % (35-66) Band Neutrophils % 6 % (0-9) Lymphocytes % 1 % (24-48) Metamyelocytes % 1 % (0-0) Platelet Estimate Adequate (ADEQUATE) Magnesium Level 2.4 mg/dL (1.8-2.4) Laboratory Tests Test 09/05/18 04:30 White Blood Count 12.5 x10^3/uL (4.0-11.0) Red Blood Count 3.98 x10^6/uL (4.30-5.70) Hemoglobin 11.9 g/dL (13.0-17.5) Hematocrit 36.6 % (39.0-53.0) Mean Corpuscular Volume 92 fL (79-100) Mean Corpuscular Hemoglobin 30 pg (25-35) Mean Corpuscular Hemoglobin Concent 33 g/dL (31-37) Red Cell Distribution Width 15.6 % (11.5-14.5) Platelet Count 321 x10^3/uL (140-400) Neutrophils (%) (Auto) 90 % (31-73) Lymphocytes (%) (Auto) 5 % (24-48) Monocytes (%) (Auto) 5 % (0-9) Eosinophils (%) (Auto) 0 % (0-3) Basophils (%) (Auto) 0 % (0-3) Neutrophils # (Auto) 11.2 x10^3uL (1.8-7.7) Lymphocytes # (Auto) 0.6 x10^3/uL (1.0-4.8) Monocytes # (Auto) 0.7 x10^3/uL (0.0-1.1) Eosinophils # (Auto) 0.0 x10^3/uL (0.0-0.7) Basophils # (Auto) 0.0 x10^3/uL (0.0-0.2) Sodium Level 136 mmol/L (136-145) Potassium Level 5.2 mmol/L (3.5-5.1) Chloride Level 95 mmol/L (98-107) Carbon Dioxide Level 41 mmol/L (21-32) Anion Gap 0 (6-14) Blood Urea Nitrogen 28 mg/dL (8-26) Creatinine 0.6 mg/dL (0.7-1.3) Estimated GFR (Cockcroft-Gault) 133.6 Glucose Level 253 mg/dL (70-99) Calcium Level 9.0 mg/dL (8.5-10.1) Magnesium Level 2.4 mg/dL (1.8-2.4) Medications Current Medications Albuterol/ Ipratropium (Duoneb) 3 ml STK-MED ONCE .ROUTE ; Start 08/30/18 at 14:37; Stop 08/30/18 at 14:38; Status DC Albuterol/ Ipratropium (Duoneb) 3 ml 1X ONCE NEB Last administered on 08/30/18at 14:53; Start 08/30/18 at 15:00; Stop 08/30/18 at 15:01; Status DC Methylprednisolone Sodium Succinate (SOLU-Medrol 125MG VIAL) 125 mg 1X ONCE IV Last administered on 08/30/18at 15:03; Start 08/30/18 at 15:00; Stop 08/30/18 at 15:01; Status DC Sodium Chloride 1,000 ml @ 1,000 mls/hr 1X ONCE IV Last administered on 08/30/18at 15:05; Start 08/30/18 at 15:00; Stop 08/30/18 at 15:59; Status DC Methylprednisolone Sodium Succinate (SOLU-Medrol 125MG VIAL) 80 mg Q8HRS IV Last administered on 09/02/18 06:19; Start 08/30/18 at 22:00; Stop 09/02/18 at 10:47; Status DC Furosemide (Lasix) 20 mg DAILY PO Last administered on 09/05/18 08:32; Start 08/31/18 at 09:00 Albuterol/ Ipratropium (Duoneb) 3 ml RTQID NEB Last administered on 09/05/18 08:34; Start 08/30/18 at 20:00 Metoprolol Tartrate (Lopressor) 12.5 mg BID PO Last administered on 09/05/18 08:31; Start 08/30/18 at 21:00 Pantoprazole Sodium (Protonix) 40 mg DAILY PO Last administered on 09/05/18 08:30; Start 08/31/18 at 09:00 Potassium Chloride (Klor-Con) 10 meq [id number] PO Last administered on 09/04/18 08:33; Start 08/31/18 at 08:00 Tamsulosin HCl (Flomax) 0.4 mg DAILY PO Last administered on 09/05/18 08:32; Start 08/31/18 at 09:00 Non-Formulary Medication (Fluticasone/ Salmeterol (Advair 500-50 Diskus)) 1 puff BID IH ; Start 08/30/18 at 21:00; Status UNV Al Hydroxide/Mg Hydroxide (Mylanta Plus Xs) 30 ml PRN Q6HRS PRN PO HEARTBURN / GAS Last administered on 09/04/18 21:03; Start 08/30/18 at 20:30 Nicotine (Nicoderm Cq 7mg) 1 patch DAILY TD Last administered on 09/05/18 08:30; Start 08/31/18 at 09:00 Sennosides (Senna) 8.6 mg BID PO Last administered on 7/7/19at 08:32; Start 08/30/18 at 21:00 Benzonatate (Tessalon Perle) 100 mg [id number] PO Last administered on 09/05/18 08:32; Start 08/30/18 at 21:00 Budesonide (Pulmicort) 0.5 mg RTBID NEB Last administered on 09/05/18 08:34; Start 08/30/18 at 22:00 Guaifenesin/ Codeine Phosphate (Robitussin Ac) 5 ml PRN Q4HRS PRN PO COUGH Last administered on 09/01/18 08:50; Start 08/31/18 at 09:45 Enoxaparin Sodium (Lovenox 40mg Syringe) 40 mg Q24H SQ Last administered on 09/04/18 12:22; Start 08/31/18 at 13:00 Albuterol Sulfate (Ventolin Neb Soln) 2.5 mg PRN Q4HRS PRN NEB SHORTNESS OF BREATH Last administered on 09/04/18 04:38; Start 09/01/18 at 02:45 Atorvastatin Calcium (Lipitor) 10 mg QHS PO Last administered on 09/04/18 21:04; Start 09/01/18 at 21:00 Sodium Chloride (Saline Mist Nasal) 1 hoang PRN Q1HR PRN NS NASAL CONGESTION Last administered on 09/04/18 08:38; Start 09/01/18 at 20:00 Methylprednisolone Sodium Succinate (SOLU-Medrol 40MG VIAL) 40 mg Q8HRS IV Last administered on 09/04/18 06:10; Start 09/02/18 at 14:00; Stop 09/04/18 at 09:31; Status DC Methylprednisolone Sodium Succinate (SOLU-Medrol 40MG VIAL) 40 mg Q12HR IV Last administered on 09/05/18 08:30; Start 09/04/18 at 21:00; Stop 09/05/18 at 08:56; Status DC Prednisone (Prednisone) 40 mg DAILY PO Last administered on 09/05/18 09:10; Start 09/05/18 at 09:00 Active Scripts Active Advair 500-50 Diskus (Fluticasone/Salmeterol) 1 Each Disk.w.dev 1 Puff IH BID Duoneb 0.5-3(2.5) Mg/3 Ml (Albuterol/Ipratropium) 3 Ml Ampul.neb 3 Ml NEB RTQID MDD 1 Reported Senna (Sennosides) 8.6 Mg Tablet 8.6 Mg PO BID NICODERM CQ 7mg (Nicotine) 1 Each Patch.td24 1 Patch TD DAILY Maalox Advanced Suspension (Mag Hydrox/Aluminum Hyd/Simeth) 355 Ml Oral.susp 355 Ml PO PRN Q6HRS PRN Protonix (Pantoprazole Sodium) 40 Mg Tablet.dr 40 Mg PO DAILY Potassium Chloride 10 Meq Capsule.er 10 Meq PO DAILY Lasix (Furosemide) 20 Mg Tablet 1 Tab PO DAILY Flomax (Tamsulosin Hcl) 0.4 Mg Cap.er.24h 1 Cap PO DAILY Metoprolol Tartrate 25 Mg Tablet 12.5 Mg PO BID Vitals/I & O Vital Sign - Last 24 Hours 09/04/18 09/04/18 09/04/18 09/04/18 12:25 15:00 16:07 18:22 Temp 97.7 97.7 Pulse 110 Resp 20 B/P (MAP) 131/74 (93) Pulse Ox 91 93 94 91 O2 Delivery Nasal Cannula Nasal Cannula Nasal Cannula Nasal Cannula O2 Flow Rate 3.0 3.0 3.0 3.0 09/04/18 09/04/18 09/04/18 09/04/18 19:20 20:00 21:04 22:35 Temp 97.8 97.8 Pulse 121 121 Resp 20 B/P (MAP) 130/77 (94) 130/77 Pulse Ox 93 O2 Delivery Nasal Cannula Nasal Cannula BiPAP/CPAP O2 Flow Rate 3.0 3.0 09/04/18 09/05/18 09/05/18 09/05/18 23:14 01:41 03:15 03:32 Temp 97.4 97.6 97.4 97.6 Pulse 97 93 Resp 20 18 B/P (MAP) 125/72 (89) 114/71 (85) Pulse Ox 94 94 96 96 O2 Delivery Nasal Cannula BiPAP/CPAP Nasal Cannula BiPAP/CPAP O2 Flow Rate 3.0 3.0 09/05/18 09/05/18 09/05/18 09/05/18 05:06 07:00 08:00 08:31 Temp 98.4 98.4 Pulse 88 88 Resp 20 B/P (MAP) 132/79 (96) 132/79 Pulse Ox 96 97 O2 Delivery BiPAP/CPAP Nasal Cannula Nasal Cannula O2 Flow Rate 3.0 09/05/18 08:34 Pulse Ox 97 O2 Delivery Nasal Cannula O2 Flow Rate 3.0 Intake and Output 09/04/18 09/04/18 09/05/18 15:00 23:00 07:00 Intake Total 360 ml 380 ml 150 ml Output Total 300 ml Balance 360 ml 380 ml -150 ml GARY BAEZ MD Sep 05, 2018 11:00
[2018-09-05] MEDS: MAG HYDROX/ALUMINUM HYD/SIMETH 30 ML ORAL.SUSP PO PRN (12:58)
[2018-09-05] MEDS: ENOXAPARIN 40 MG/0.4 ML SYRINGE. SQ SCH (12:58)
[2018-09-05 15:00] VITALS: BP 122/70
[2018-09-05 19:45] VITALS: BP 102/60
[2018-09-05] MEDS: ATORVASTATIN CALCIUM 10 MG TABLET. PO SCH (21:30)
[2018-09-05 23:15] VITALS: BP 114/75
[2018-09-06 03:51] VITALS: BP 131/72
[2018-09-06 04:00] LABS: BASO % 0 % (0-3); EOS % 0 % (0-3); HEMATOCRIT 35.6 % (39.0-53.0); HEMOGLOBIN 11.8 g/dL (13.0-17.5); LYMPH % 7 % (24-48); MEAN CORPUSCULAR HEMOGLOBIN 31 pg (25-35); MEAN CORPUSCULAR HGB CONC 33 g/dL (31-37); MEAN CORPUSCULAR VOLUME 93 fL (79-100); MONO % 7 % (0-9); NEUT # 12.5 x10^3uL (1.8-7.7); NEUT % 86 % (31-73); PLATELET COUNT 345 x10^3/uL (140-400); RED BLOOD COUNT 3.85 x10^6/uL (4.30-5.70); RED CELL DISTRIBUTION WIDTH 15.6 % (11.5-14.5); WHITE BLOOD COUNT 14.6 x10^3/uL (4.0-11.0)
[2018-09-06 04:26] LABS: ALBUMIN 2.8 g/dL (3.4-5.0); CALCIUM 8.9 mg/dL (8.5-10.1); CREATININE 0.6 mg/dL (0.7-1.3); GFR 133.6; PHOSPHORUS 3.9 mg/dL (2.6-4.7)
[2018-09-06] MEDS: MAG HYDROX/ALUMINUM HYD/SIMETH 30 ML ORAL.SUSP PO PRN (06:53)
[2018-09-06] MEDS: guaiFENesin/CODEINE 100mg/10mg 5 ML LIQUID PO PRN (06:54)
[2018-09-06 07:20] VITALS: BP 134/69
[2018-09-06] MEDS: BUDESONIDE 0.5 MG/2 ML NEBU. NEB SCH (07:53)
[2018-09-06] MEDS: IPRATRPIUM/ALBUTEROL 0.5/2.5MG 3 ML NEBU. NEB SCH ×2 (07:53→12:05)
[2018-09-06] MEDS: SENNOSIDES 8.6 MG TABLET PO SCH (08:41)
[2018-09-06] MEDS: predniSONE 20 MG TABLET PO SCH (08:41)
[2018-09-06] MEDS: BENZONATATE 100 MG CAPSULE. PO SCH (08:41)
[2018-09-06] MEDS: FUROSEMIDE 20 MG TABLET PO SCH (08:41)
[2018-09-06] MEDS: NICOTINE 7MG PATCH. TD SCH (08:41)
[2018-09-06] MEDS: TAMSULOSIN 0.4 MG CAP.ER.24H. PO SCH (08:41)
[2018-09-06] MEDS: PANTOPRAZOLE 40 MG TABLET.DR. PO SCH (08:41)
[2018-09-06] MEDS: METOPROLOL TART IMMED RELEASE 25 MG TABLET. PO SCH (08:42)
--- NOTE | 2018-09-06 09:01 | PDOC ---
PROGRESS NOTES Chief Complaint Chief Complaint SEVERE Hypercapnic respiratory failure. Chronic obstructive pulmonary disease. Tobacco dependent. Gastroesophageal reflux. Hypertension. hyperlipidemia There is moderate pulmonary hypertension. The PA pressure was estimated at 50 mmHg. Poor long-term prognosis per my chart review 40 min pt exam, chart review, > 50% of time spent with exam, chart review, pt care coordination History of Present Illness History of Present Illness Mr Romero is a 68 yo smoker with COPD on continuous home O2 3L, who started having respiratory symptoms worsening prior to admission. Last admitted 1 month ago for the same. He relates that between coughing, shortness of breath, sneezing and nasal dripping, symptoms were essentially getting worse and worse. This, however, does not keep him from smoking on a regular basis. His breathing even at rest has been getting worse. Cough is present. He notes his O2 fell off his face last night. Patient stated while he was sleeping his oxygen nasal tube came off and he felt more shortness of breath. EMS reported that patient had O2 sat of 70 that increased with starting oxygen to more than 90s. EMS administered DuoNeb with improved symptoms prior to arrival to ER. On arrival patient is on oxygen via nasal cannula with O2 sat of 89-90%, however he was continuing to have increased respirations and desaturations and was placed on BIPAP. He improved significantly, wishes to go home 09-03-2018 Patient was seen and examined He says that he still feels short of breath and has begun to cough up sputum today He is still on 3L of O2 and saturating at 94% 09-02-2018 Patient was seen and examined He says that he was not feeling very well today and that he was very short of breath He is still on 3L of O2 saturating at 95% Pt seen and examined Patient is a pleasant 68 year old male He was not in acute distress He says that he is feeling better and is saturating 94% on 3L O2 09/04 still wheezing when supine 09/05 USED BIPAP LAST NIGHT, appears in less distress, needs cpcp at home re- programmed free t4 pending Vitals Vitals Vital Signs Date Time Temp Pulse Resp B/P (MAP) Pulse Ox O2 Delivery O2 Flow Rate FiO2 09/06/18 08:42 91 134/69 09/06/18 07:54 93 Nasal Cannula 3.0 09/06/18 07:20 98.0 20 98.0 Physical Exam General: Alert, Oriented X3, Cooperative, mild distress Heart: Regular rate (SR), Normal S1, Normal S2, Other (2/6 systolic murmur to LLS border) Lungs: Other (decrease bs mild exp wheezing) Abdomen: Soft, No tenderness Extremities: No clubbing, No cyanosis, Other (1+ pitting edema more to LLE) Skin: No breakdown, No significant lesion Labs LABS Laboratory Tests Test 09/06/18 02:50 White Blood Count 14.6 x10^3/uL (4.0-11.0) Red Blood Count 3.85 x10^6/uL (4.30-5.70) Hemoglobin 11.8 g/dL (13.0-17.5) Hematocrit 35.6 % (39.0-53.0) Mean Corpuscular Volume 93 fL (79-100) Mean Corpuscular Hemoglobin 31 pg (25-35) Mean Corpuscular Hemoglobin Concent 33 g/dL (31-37) Red Cell Distribution Width 15.6 % (11.5-14.5) Platelet Count 345 x10^3/uL (140-400) Neutrophils (%) (Auto) 86 % (31-73) Lymphocytes (%) (Auto) 7 % (24-48) Monocytes (%) (Auto) 7 % (0-9) Eosinophils (%) (Auto) 0 % (0-3) Basophils (%) (Auto) 0 % (0-3) Neutrophils # (Auto) 12.5 x10^3uL (1.8-7.7) Lymphocytes # (Auto) 1.0 x10^3/uL (1.0-4.8) Monocytes # (Auto) 1.0 x10^3/uL (0.0-1.1) Eosinophils # (Auto) 0.0 x10^3/uL (0.0-0.7) Basophils # (Auto) 0.0 x10^3/uL (0.0-0.2) Sodium Level 140 mmol/L (136-145) Potassium Level 4.0 mmol/L (3.5-5.1) Chloride Level 97 mmol/L (98-107) Carbon Dioxide Level 43 mmol/L (21-32) Anion Gap 0 (6-14) Blood Urea Nitrogen 30 mg/dL (8-26) Creatinine 0.6 mg/dL (0.7-1.3) Estimated GFR (Cockcroft-Gault) 133.6 Glucose Level 182 mg/dL (70-99) Calcium Level 8.9 mg/dL (8.5-10.1) Phosphorus Level 3.9 mg/dL (2.6-4.7) Albumin 2.8 g/dL (3.4-5.0) Assessment and Plan Assessmemt and Plan Problems Medical Problems: (1) Acute and chronic respiratory failure with hypoxia Status: Acute (2) COPD exacerbation Status: Acute Comment Review of Relevant I have reviewed the following items zaire (where applicable) has been applied. Labs Laboratory Tests Test 09/05/18 04:30 09/06/18 02:50 White Blood Count 12.5 x10^3/uL (4.0-11.0) 14.6 x10^3/uL (4.0-11.0) Red Blood Count 3.98 x10^6/uL (4.30-5.70) 3.85 x10^6/uL (4.30-5.70) Hemoglobin 11.9 g/dL (13.0-17.5) 11.8 g/dL (13.0-17.5) Hematocrit 36.6 % (39.0-53.0) 35.6 % (39.0-53.0) Mean Corpuscular Volume 92 fL (79-100) 93 fL (79-100) Mean Corpuscular Hemoglobin 30 pg (25-35) 31 pg (25-35) Mean Corpuscular Hemoglobin Concent 33 g/dL (31-37) 33 g/dL (31-37) Red Cell Distribution Width 15.6 % (11.5-14.5) 15.6 % (11.5-14.5) Platelet Count 321 x10^3/uL (140-400) 345 x10^3/uL (140-400) Neutrophils (%) (Auto) 90 % (31-73) 86 % (31-73) Lymphocytes (%) (Auto) 5 % (24-48) 7 % (24-48) Monocytes (%) (Auto) 5 % (0-9) 7 % (0-9) Eosinophils (%) (Auto) 0 % (0-3) 0 % (0-3) Basophils (%) (Auto) 0 % (0-3) 0 % (0-3) Neutrophils # (Auto) 11.2 x10^3uL (1.8-7.7) 12.5 x10^3uL (1.8-7.7) Lymphocytes # (Auto) 0.6 x10^3/uL (1.0-4.8) 1.0 x10^3/uL (1.0-4.8) Monocytes # (Auto) 0.7 x10^3/uL (0.0-1.1) 1.0 x10^3/uL (0.0-1.1) Eosinophils # (Auto) 0.0 x10^3/uL (0.0-0.7) 0.0 x10^3/uL (0.0-0.7) Basophils # (Auto) 0.0 x10^3/uL (0.0-0.2) 0.0 x10^3/uL (0.0-0.2) Sodium Level 136 mmol/L (136-145) 140 mmol/L (136-145) Potassium Level 5.2 mmol/L (3.5-5.1) 4.0 mmol/L (3.5-5.1) Chloride Level 95 mmol/L (98-107) 97 mmol/L (98-107) Carbon Dioxide Level 41 mmol/L (21-32) 43 mmol/L (21-32) Anion Gap 0 (6-14) 0 (6-14) Blood Urea Nitrogen 28 mg/dL (8-26) 30 mg/dL (8-26) Creatinine 0.6 mg/dL (0.7-1.3) 0.6 mg/dL (0.7-1.3) Estimated GFR (Cockcroft-Gault) 133.6 133.6 Glucose Level 253 mg/dL (70-99) 182 mg/dL (70-99) Calcium Level 9.0 mg/dL (8.5-10.1) 8.9 mg/dL (8.5-10.1) Magnesium Level 2.4 mg/dL (1.8-2.4) Free Thyroxine 1.02 ng/dL (0.76-1.46) Phosphorus Level 3.9 mg/dL (2.6-4.7) Albumin 2.8 g/dL (3.4-5.0) Laboratory Tests Test 09/06/18 02:50 White Blood Count 14.6 x10^3/uL (4.0-11.0) Red Blood Count 3.85 x10^6/uL (4.30-5.70) Hemoglobin 11.8 g/dL (13.0-17.5) Hematocrit 35.6 % (39.0-53.0) Mean Corpuscular Volume 93 fL (79-100) Mean Corpuscular Hemoglobin 31 pg (25-35) Mean Corpuscular Hemoglobin Concent 33 g/dL (31-37) Red Cell Distribution Width 15.6 % (11.5-14.5) Platelet Count 345 x10^3/uL (140-400) Neutrophils (%) (Auto) 86 % (31-73) Lymphocytes (%) (Auto) 7 % (24-48) Monocytes (%) (Auto) 7 % (0-9) Eosinophils (%) (Auto) 0 % (0-3) Basophils (%) (Auto) 0 % (0-3) Neutrophils # (Auto) 12.5 x10^3uL (1.8-7.7) Lymphocytes # (Auto) 1.0 x10^3/uL (1.0-4.8) Monocytes # (Auto) 1.0 x10^3/uL (0.0-1.1) Eosinophils # (Auto) 0.0 x10^3/uL (0.0-0.7) Basophils # (Auto) 0.0 x10^3/uL (0.0-0.2) Sodium Level 140 mmol/L (136-145) Potassium Level 4.0 mmol/L (3.5-5.1) Chloride Level 97 mmol/L (98-107) Carbon Dioxide Level 43 mmol/L (21-32) Anion Gap 0 (6-14) Blood Urea Nitrogen 30 mg/dL (8-26) Creatinine 0.6 mg/dL (0.7-1.3) Estimated GFR (Cockcroft-Gault) 133.6 Glucose Level 182 mg/dL (70-99) Calcium Level 8.9 mg/dL (8.5-10.1) Phosphorus Level 3.9 mg/dL (2.6-4.7) Albumin 2.8 g/dL (3.4-5.0) Medications Current Medications Albuterol/ Ipratropium (Duoneb) 3 ml STK-MED ONCE .ROUTE ; Start 08/30/18 at 14:37; Stop 08/30/18 at 14:38; Status DC Albuterol/ Ipratropium (Duoneb) 3 ml 1X ONCE NEB Last administered on 08/30/18at 14:53; Start 08/30/18 at 15:00; Stop 08/30/18 at 15:01; Status DC Methylprednisolone Sodium Succinate (SOLU-Medrol 125MG VIAL) 125 mg 1X ONCE IV Last administered on 08/30/18at 15:03; Start 08/30/18 at 15:00; Stop 08/30/18 at 15:01; Status DC Sodium Chloride 1,000 ml @ 1,000 mls/hr 1X ONCE IV Last administered on 08/30/18at 15:05; Start 08/30/18 at 15:00; Stop 08/30/18 at 15:59; Status DC Methylprednisolone Sodium Succinate (SOLU-Medrol 125MG VIAL) 80 mg Q8HRS IV L ast administered on 09/02/18at 06:19; Start 08/30/18 at 22:00; Stop 09/02/18 at 10:47; Status DC Furosemide (Lasix) 20 mg DAILY PO Last administered on 09/06/18at 08:41; Start 08/31/18 at 09:00 Albuterol/ Ipratropium (Duoneb) 3 ml RTQID NEB Last administered on 09/06/18at 07:53; Start 08/30/18 at 20:00 Metoprolol Tartrate (Lopressor) 12.5 mg BID PO Last administered on 09/06/18 08:42; Start 08/30/18 at 21:00 Pantoprazole Sodium (Protonix) 40 mg DAILY PO Last administered on 09/06/18at 08:41; Start 08/31/18 at 09:00 Potassium Chloride (Klor-Con) 10 meq [id number] PO Last administered on 09/04/18at 08:33; Start 08/31/18 at 08:00; Stop 09/05/18 at 12:10; Status DC Tamsulosin HCl (Flomax) 0.4 mg DAILY PO Last administered on 09/06/18 08:41; Start 08/31/18 at 09:00 Non-Formulary Medication (Fluticasone/ Salmeterol (Advair 500-50 Diskus)) 1 puff BID IH ; Start 08/30/18 at 21:00; Status UNV Al Hydroxide/Mg Hydroxide (Mylanta Plus Xs) 30 ml PRN Q6HRS PRN PO HEARTBURN / GAS Last administered on 09/06/18 06:53; Start 08/30/18 at 20:30 Nicotine (Nicoderm Cq 7mg) 1 patch DAILY TD Last administered on 09/06/18 08:41; Start 08/31/18 at 09:00 Sennosides (Senna) 8.6 mg BID PO Last administered on 09/06/18 08:41; Start 08/30/18 at 21:00 Benzonatate (Tessalon Perle) 100 mg [id number] PO Last administered on 09/06/18 08:41; Start 08/30/18 at 21:00 Budesonide (Pulmicort) 0.5 mg RTBID NEB Last administered on 09/06/18 07:53; Start 08/30/18 at 22:00 Guaifenesin/ Codeine Phosphate (Robitussin Ac) 5 ml PRN Q4HRS PRN PO COUGH Last administered on 09/06/18 06:54; Start 08/31/18 at 09:45 Enoxaparin Sodium (Lovenox 40mg Syringe) 40 mg Q24H SQ Last administered on 09/05/18 12:58; Start 08/31/18 at 13:00 Albuterol Sulfate (Ventolin Neb Soln) 2.5 mg PRN Q4HRS PRN NEB SHORTNESS OF BREATH Last administered on 09/04/18 04:38; Start 09/01/18 at 02:45 Atorvastatin Calcium (Lipitor) 10 mg QHS PO Last administered on 09/05/18 21:30; Start 09/01/18 at 21:00 Sodium Chloride (Saline Mist Nasal) 1 hoang PRN Q1HR PRN NS NASAL CONGESTION Last administered on 09/04/18 08:38; Start 09/01/18 at 20:00 Methylprednisolone Sodium Succinate (SOLU-Medrol 40MG VIAL) 40 mg Q8HRS IV Last administered on 09/04/18at 06:10; Start 09/02/18 at 14:00; Stop 09/04/18 at 09:31; Status DC Methylprednisolone Sodium Succinate (SOLU-Medrol 40MG VIAL) 40 mg Q12HR IV Last administered on 09/05/18at 08:30; Start 09/04/18 at 21:00; Stop 09/05/18 at 08:56; Status DC Prednisone (Prednisone) 40 mg DAILY PO Last administered on 09/06/18at 08:41; Start 09/05/18 at 09:00 Active Scripts Active Advair 500-50 Diskus (Fluticasone/Salmeterol) 1 Each Disk.w.dev 1 Puff IH BID Duoneb 0.5-3(2.5) Mg/3 Ml (Albuterol/Ipratropium) 3 Ml Ampul.neb 3 Ml NEB RTQID MDD 1 Reported Senna (Sennosides) 8.6 Mg Tablet 8.6 Mg PO BID NICODERM CQ 7mg (Nicotine) 1 Each Patch.td24 1 Patch TD DAILY Maalox Advanced Suspension (Mag Hydrox/Aluminum Hyd/Simeth) 355 Ml Oral.susp 355 Ml PO PRN Q6HRS PRN Protonix (Pantoprazole Sodium) 40 Mg Tablet.dr 40 Mg PO DAILY Potassium Chloride 10 Meq Capsule.er 10 Meq PO DAILY Lasix (Furosemide) 20 Mg Tablet 1 Tab PO DAILY Flomax (Tamsulosin Hcl) 0.4 Mg Cap.er.24h 1 Cap PO DAILY Metoprolol Tartrate 25 Mg Tablet 12.5 Mg PO BID Vitals/I & O Vital Sign - Last 24 Hours 09/05/18 09/05/18 09/05/18 09/05/18 11:00 12:45 15:00 16:19 Temp 98.1 97.8 98.1 97.8 Pulse 98 100 Resp 26 22 B/P (MAP) 164/98 (120) 122/70 (87) Pulse Ox 93 92 93 94 O2 Delivery Nasal Cannula Nasal Cannula Nasal Cannula Nasal Cannula O2 Flow Rate 3.0 3.0 3.0 3.0 09/05/18 09/05/18 09/05/18 09/05/18 19:45 20:00 20:29 21:33 Temp 98.1 98.1 Pulse 115 125 Resp 20 B/P (MAP) 102/60 (74) 133/67 Pulse Ox 97 94 O2 Delivery Nasal Cannula Nasal Cannula Nasal Cannula O2 Flow Rate 3.0 3.0 3.0 09/05/18 09/05/18 09/06/18 09/06/18 22:35 23:15 03:51 07:20 Temp 97.9 97.9 98.0 97.9 97.9 98.0 Pulse 97 89 91 Resp 20 20 20 B/P (MAP) 114/75 (88) 131/72 (91) 134/69 (90) Pulse Ox 96 96 95 96 O2 Delivery BiPAP/CPAP Nasal Cannula Nasal Cannula Nasal Cannula O2 Flow Rate 3.0 3.0 3.0 09/06/18 09/06/18 09/06/18 07:54 07:54 08:42 Pulse 91 B/P (MAP) 134/69 Pulse Ox 93 93 O2 Delivery Nasal Cannula Nasal Cannula O2 Flow Rate 3.0 3.0 Intake and Output 09/05/18 09/05/18 09/06/18 15:00 23:00 07:00 Intake Total 320 ml 610 ml 450 ml Output Total 400 ml Balance 320 ml 610 ml 50 ml EVGENY ELIZABETH MD Sep 06, 2018 09:01
[2018-09-06] MEDS ORDERED: PRED20TA PO (11:12)
--- NOTE | 2018-09-06 11:14 | PDOC3 ---
Discharge Summary Visit Information Date of Admission: Aug 30, 2018 Date of Discharge: Sep 06, 2018 Admitting Diagnosis: Acute hypoxic resp failure, COPD exacerbation Final Diagnosis Problems Medical Problems: (1) Acute and chronic respiratory failure with hypoxia Status: Acute (2) COPD exacerbation Status: Acute Brief Hospital Course Allergies Allergies Coded Allergies Type Severity Reaction Last Updated Verified morphine Allergy Intermediate Itching 07/15/18 Yes Vital Signs Vital Signs Date Time Temp Pulse Resp B/P (MAP) Pulse Ox O2 Delivery O2 Flow Rate FiO2 09/06/18 08:42 91 134/69 09/06/18 08:00 Nasal Cannula 3.0 09/06/18 07:54 93 09/06/18 07:20 98.0 20 98.0 Lab Results Laboratory Tests Test 09/05/18 04:30 09/06/18 02:50 White Blood Count 12.5 x10^3/uL (4.0-11.0) 14.6 x10^3/uL (4.0-11.0) Red Blood Count 3.98 x10^6/uL (4.30-5.70) 3.85 x10^6/uL (4.30-5.70) Hemoglobin 11.9 g/dL (13.0-17.5) 11.8 g/dL (13.0-17.5) Hematocrit 36.6 % (39.0-53.0) 35.6 % (39.0-53.0) Mean Corpuscular Volume 92 fL (79-100) 93 fL (79-100) Mean Corpuscular Hemoglobin 30 pg (25-35) 31 pg (25-35) Mean Corpuscular Hemoglobin Concent 33 g/dL (31-37) 33 g/dL (31-37) Red Cell Distribution Width 15.6 % (11.5-14.5) 15.6 % (11.5-14.5) Platelet Count 321 x10^3/uL (140-400) 345 x10^3/uL (140-400) Neutrophils (%) (Auto) 90 % (31-73) 86 % (31-73) Lymphocytes (%) (Auto) 5 % (24-48) 7 % (24-48) Monocytes (%) (Auto) 5 % (0-9) 7 % (0-9) Eosinophils (%) (Auto) 0 % (0-3) 0 % (0-3) Basophils (%) (Auto) 0 % (0-3) 0 % (0-3) Neutrophils # (Auto) 11.2 x10^3uL (1.8-7.7) 12.5 x10^3uL (1.8-7.7) Lymphocytes # (Auto) 0.6 x10^3/uL (1.0-4.8) 1.0 x10^3/uL (1.0-4.8) Monocytes # (Auto) 0.7 x10^3/uL (0.0-1.1) 1.0 x10^3/uL (0.0-1.1) Eosinophils # (Auto) 0.0 x10^3/uL (0.0-0.7) 0.0 x10^3/uL (0.0-0.7) Basophils # (Auto) 0.0 x10^3/uL (0.0-0.2) 0.0 x10^3/uL (0.0-0.2) Sodium Level 136 mmol/L (136-145) 140 mmol/L (136-145) Potassium Level 5.2 mmol/L (3.5-5.1) 4.0 mmol/L (3.5-5.1) Chloride Level 95 mmol/L (98-107) 97 mmol/L (98-107) Carbon Dioxide Level 41 mmol/L (21-32) 43 mmol/L (21-32) Anion Gap 0 (6-14) 0 (6-14) Blood Urea Nitrogen 28 mg/dL (8-26) 30 mg/dL (8-26) Creatinine 0.6 mg/dL (0.7-1.3) 0.6 mg/dL (0.7-1.3) Estimated GFR (Cockcroft-Gault) 133.6 133.6 Glucose Level 253 mg/dL (70-99) 182 mg/dL (70-99) Calcium Level 9.0 mg/dL (8.5-10.1) 8.9 mg/dL (8.5-10.1) Magnesium Level 2.4 mg/dL (1.8-2.4) Free Thyroxine 1.02 ng/dL (0.76-1.46) Phosphorus Level 3.9 mg/dL (2.6-4.7) Albumin 2.8 g/dL (3.4-5.0) Laboratory Tests Test 09/06/18 02:50 White Blood Count 14.6 x10^3/uL (4.0-11.0) Red Blood Count 3.85 x10^6/uL (4.30-5.70) Hemoglobin 11.8 g/dL (13.0-17.5) Hematocrit 35.6 % (39.0-53.0) Mean Corpuscular Volume 93 fL (79-100) Mean Corpuscular Hemoglobin 31 pg (25-35) Mean Corpuscular Hemoglobin Concent 33 g/dL (31-37) Red Cell Distribution Width 15.6 % (11.5-14.5) Platelet Count 345 x10^3/uL (140-400) Neutrophils (%) (Auto) 86 % (31-73) Lymphocytes (%) (Auto) 7 % (24-48) Monocytes (%) (Auto) 7 % (0-9) Eosinophils (%) (Auto) 0 % (0-3) Basophils (%) (Auto) 0 % (0-3) Neutrophils # (Auto) 12.5 x10^3uL (1.8-7.7) Lymphocytes # (Auto) 1.0 x10^3/uL (1.0-4.8) Monocytes # (Auto) 1.0 x10^3/uL (0.0-1.1) Eosinophils # (Auto) 0.0 x10^3/uL (0.0-0.7) Basophils # (Auto) 0.0 x10^3/uL (0.0-0.2) Sodium Level 140 mmol/L (136-145) Potassium Level 4.0 mmol/L (3.5-5.1) Chloride Level 97 mmol/L (98-107) Carbon Dioxide Level 43 mmol/L (21-32) Anion Gap 0 (6-14) Blood Urea Nitrogen 30 mg/dL (8-26) Creatinine 0.6 mg/dL (0.7-1.3) Estimated GFR (Cockcroft-Gault) 133.6 Glucose Level 182 mg/dL (70-99) Calcium Level 8.9 mg/dL (8.5-10.1) Phosphorus Level 3.9 mg/dL (2.6-4.7) Albumin 2.8 g/dL (3.4-5.0) Brief Hospital Course Mr Romero is a 68 yo smoker with COPD on continuous home O2 3L, who started having respiratory symptoms worsening prior to admission. Last admitted 1 month ago for the same. He relates that between coughing, shortness of breath, sneezing and nasal dripping, symptoms were essentially getting worse and worse. This, however, does not keep him from smoking on a regular basis. His breathing even at rest has been getting worse. Cough is present. He notes his O2 fell off his face last night. Patient stated while he was sleeping his oxygen nasal tube came off and he felt more shortness of breath. EMS reported that patient had O2 sat of 70 that increased with starting oxygen to more than 90s. EMS administered DuoNeb with improved symptoms prior to arrival to ER. On arrival patient is on oxygen via nasal cannula with O2 sat of 89-90%, however he was continuing to have increased respirations and desaturations and was placed on BIPAP. He improved significantly, wishes to go home. 09-03-2018 Patient was seen and examined He says that he still feels short of breath and has begun to cough up sputum today He is still on 3L of O2 and saturating at 94% 09-02-2018 Patient was seen and examined He says that he was not feeling very well today and that he was very short of breath He is still on 3L of O2 saturating at 95% Pt seen and examined Patient is a pleasant 68 year old male He was not in acute distress He says that he is feeling better and is saturating 94% on 3L O2 09/04 still wheezing when supine 09/05 USED BIPAP LAST NIGHT Severe hypercapnic respiratory failure Chronic obstructive pulmonary disease Tobacco dependent Gastroesophageal reflux Hypertension Hyperlipidemia There is moderate pulmonary hypertension. The PA pressure was estimated at 50 mmHg. Greater than 30 minutes spent on discharge. Discharge Information Condition at Discharge: Improved Follow Up: Weeks Disposition/Orders: D/C to Home Scheduled Fluticasone/Salmeterol (Advair 500-50 Diskus) 1 Each Disk.w.dev, 1 PUFF IH BID for copd, #1 Ref 5 Prescribed by: ALBERT MONTEZ on 08/08/18 1023 Last Taken: Unknown Dose on Unknown Date & Time Last Action: Converted on 08/30/181941 by WILFREDO ACOSTA RN Furosemide (Lasix) 20 Mg Tablet, 1 TAB PO DAILY, #90 Ref 1 (Reported) Entered as Reported by: Kate Casarez on 11/18/15 1156 Last Taken: Unknown Dose on Unknown Date & Time Last Action: Continued on 08/30/181941 by WILFREDO ACOSTA RN Ipratropium/Albuterol Sulfate (Duoneb 0.5-3(2.5) Mg/3 Ml) 3 Ml Ampul.neb, 3 ML NEB RTQID for copd MDD 1, #30 Prescribed by: ALBERT MONTEZ on 05/10/18 1227 Last Taken: Unknown Dose on Unknown Date & Time Last Action: Continued on 08/30/181941 by WILFREDO ACOSTA RN Metoprolol Tartrate (Metoprolol Tartrate) 25 Mg Tablet, 12.5 MG PO BID, #180 Ref 1 (Reported) Entered as Reported by: ROSEMARIE VILLANUEVA on 10/11/15 0414 Last Taken: Unknown Dose on Unknown Date & Time Last Action: Continued on 08/30/181941 by WILFREDO ACOSTA RN Nicotine (NICODERM CQ 7mg) 1 Each Patch.td24, 1 PATCH TD DAILY for smoking cessation, (Reported) Entered as Reported by: BALA RAMACHANDRAN on 05/18/18 1840 Last Taken: Unknown Dose on Unknown Date & Time Last Action: Converted on 08/30/181941 by WILFREDO ACOSTA RN Pantoprazole Sodium (Protonix ) 40 Mg Tablet.dr, 40 MG PO DAILY, Ref 1 (Reported) Entered as Reported by: Kate Casarez on 11/18/15 1229 Last Taken: Unknown Dose on Unknown Date & Time Last Action: Continued on 08/30/181941 by WILFREDO ACOSTA RN Potassium Chloride (Potassium Chloride) 10 Meq Capsule.er, 10 MEQ PO DAILY, (Reported) Entered as Reported by: Kate Casarez on 11/18/15 1157 Last Taken: Unknown Dose on Unknown Date & Time Last Action: Continued on 08/30/181941 by WILFREDO ACOSTA RN Prednisone (Prednisone) 20 Mg Tablet, 40 MG PO DAILY for COPD for 5 Days, #10 Prescribed by: EVGENY ELIZABETH MD on 09/06/18 1112 Sennosides (Senna) 8.6 Mg Tablet, 8.6 MG PO BID for constipation, (Reported) Entered as Reported by: BALA RAMACHANDRAN on 05/18/181839 Last Taken: Unknown Dose on Unknown Date & Time Last Action: Converted on 08/30/181941 by WILFREDO ACOSTA RN Tamsulosin Hcl (Flomax) 0.4 Mg Cap.er.24h, 1 CAP PO DAILY, #30 Ref 11 (Reported) Entered as Reported by: ROSEMARIE VILLANUEVA on 10/11/15 0414 Last Taken: Unknown Dose on Unknown Date & Time Last Action: Continued on 08/30/181941 by WILFREDO ACOSTA RN Scheduled PRN Mag Hydrox/Aluminum Hyd/Simeth (Maalox Advanced Suspension) 355 Ml Oral.susp, 355 ML PO PRN Q6HRS PRN for HEARTBURN / GAS, (Reported) Entered as Reported by: BALA RAMACHANDRAN on 05/18/181839 Last Taken: Unknown Dose on Unknown Date & Time Last Action: Converted on 08/30/181941 by GRISELDA GUNTER CHRISTOPHER S MD Sep 06, 2018 11:14
[2018-09-06 11:30] VITALS: BP 107/67
--- NOTE | 2018-09-06 12:04 | PDOC ---
PULMONARY PROGRESS NOTES Subjective feels better, used bipap last night, sob cough better, no pain, on home 02 Vitals Vital Signs Date Time Temp Pulse Resp B/P (MAP) Pulse Ox O2 Delivery O2 Flow Rate FiO2 09/06/18 11:30 98.2 99 20 107/67 (80) 92 Nasal Cannula 3.0 98.2 ROS: No Nausea, No Chest Pain, No Abdominal Pain, No Increase Cough (VERY POOR AIRFLOW) General: Alert, No acute distress HEENT: Other (nc at perrl ) Lungs: Other (decrease bs mild exp wheezing) Cardiovascular: S1, S2 Abdomen: Soft, Non-tender Neuro Exam: Alert Extremities: No Edema, Other Skin: Warm Labs Laboratory Tests Test 09/05/18 04:30 09/06/18 02:50 White Blood Count 12.5 x10^3/uL (4.0-11.0) 14.6 x10^3/uL (4.0-11.0) Red Blood Count 3.98 x10^6/uL (4.30-5.70) 3.85 x10^6/uL (4.30-5.70) Hemoglobin 11.9 g/dL (13.0-17.5) 11.8 g/dL (13.0-17.5) Hematocrit 36.6 % (39.0-53.0) 35.6 % (39.0-53.0) Mean Corpuscular Volume 92 fL (79-100) 93 fL (79-100) Mean Corpuscular Hemoglobin 30 pg (25-35) 31 pg (25-35) Mean Corpuscular Hemoglobin Concent 33 g/dL (31-37) 33 g/dL (31-37) Red Cell Distribution Width 15.6 % (11.5-14.5) 15.6 % (11.5-14.5) Platelet Count 321 x10^3/uL (140-400) 345 x10^3/uL (140-400) Neutrophils (%) (Auto) 90 % (31-73) 86 % (31-73) Lymphocytes (%) (Auto) 5 % (24-48) 7 % (24-48) Monocytes (%) (Auto) 5 % (0-9) 7 % (0-9) Eosinophils (%) (Auto) 0 % (0-3) 0 % (0-3) Basophils (%) (Auto) 0 % (0-3) 0 % (0-3) Neutrophils # (Auto) 11.2 x10^3uL (1.8-7.7) 12.5 x10^3uL (1.8-7.7) Lymphocytes # (Auto) 0.6 x10^3/uL (1.0-4.8) 1.0 x10^3/uL (1.0-4.8) Monocytes # (Auto) 0.7 x10^3/uL (0.0-1.1) 1.0 x10^3/uL (0.0-1.1) Eosinophils # (Auto) 0.0 x10^3/uL (0.0-0.7) 0.0 x10^3/uL (0.0-0.7) Basophils # (Auto) 0.0 x10^3/uL (0.0-0.2) 0.0 x10^3/uL (0.0-0.2) Sodium Level 136 mmol/L (136-145) 140 mmol/L (136-145) Potassium Level 5.2 mmol/L (3.5-5.1) 4.0 mmol/L (3.5-5.1) Chloride Level 95 mmol/L (98-107) 97 mmol/L (98-107) Carbon Dioxide Level 41 mmol/L (21-32) 43 mmol/L (21-32) Anion Gap 0 (6-14) 0 (6-14) Blood Urea Nitrogen 28 mg/dL (8-26) 30 mg/dL (8-26) Creatinine 0.6 mg/dL (0.7-1.3) 0.6 mg/dL (0.7-1.3) Estimated GFR (Cockcroft-Gault) 133.6 133.6 Glucose Level 253 mg/dL (70-99) 182 mg/dL (70-99) Calcium Level 9.0 mg/dL (8.5-10.1) 8.9 mg/dL (8.5-10.1) Magnesium Level 2.4 mg/dL (1.8-2.4) Free Thyroxine 1.02 ng/dL (0.76-1.46) Phosphorus Level 3.9 mg/dL (2.6-4.7) Albumin 2.8 g/dL (3.4-5.0) Laboratory Tests Test 09/06/18 02:50 White Blood Count 14.6 x10^3/uL (4.0-11.0) Red Blood Count 3.85 x10^6/uL (4.30-5.70) Hemoglobin 11.8 g/dL (13.0-17.5) Hematocrit 35.6 % (39.0-53.0) Mean Corpuscular Volume 93 fL (79-100) Mean Corpuscular Hemoglobin 31 pg (25-35) Mean Corpuscular Hemoglobin Concent 33 g/dL (31-37) Red Cell Distribution Width 15.6 % (11.5-14.5) Platelet Count 345 x10^3/uL (140-400) Neutrophils (%) (Auto) 86 % (31-73) Lymphocytes (%) (Auto) 7 % (24-48) Monocytes (%) (Auto) 7 % (0-9) Eosinophils (%) (Auto) 0 % (0-3) Basophils (%) (Auto) 0 % (0-3) Neutrophils # (Auto) 12.5 x10^3uL (1.8-7.7) Lymphocytes # (Auto) 1.0 x10^3/uL (1.0-4.8) Monocytes # (Auto) 1.0 x10^3/uL (0.0-1.1) Eosinophils # (Auto) 0.0 x10^3/uL (0.0-0.7) Basophils # (Auto) 0.0 x10^3/uL (0.0-0.2) Sodium Level 140 mmol/L (136-145) Potassium Level 4.0 mmol/L (3.5-5.1) Chloride Level 97 mmol/L (98-107) Carbon Dioxide Level 43 mmol/L (21-32) Anion Gap 0 (6-14) Blood Urea Nitrogen 30 mg/dL (8-26) Creatinine 0.6 mg/dL (0.7-1.3) Estimated GFR (Cockcroft-Gault) 133.6 Glucose Level 182 mg/dL (70-99) Calcium Level 8.9 mg/dL (8.5-10.1) Phosphorus Level 3.9 mg/dL (2.6-4.7) Albumin 2.8 g/dL (3.4-5.0) Medications Active Scripts Medications Dose Route/Sig Max Daily Dose Days Date Category Advair 500-50 Diskus (Fluticasone/Salmeterol) 1 Each Disk.w.dev 1 Puff IH BID 08/08/18 Rx NICODERM CQ 21mg (Nicotine) 1 Each Patch.td24 1 Patch TP DAILY 08/08/18 Rx Doxycycline Hyclate 100 Mg Tablet 100 Mg PO BID MDD 1 08/08/18 Rx Culturelle (Lactobacillus Rhamnosus Gg) 1 Each Cap.sprink 1 Cap PO BID 14 05/20/18 Rx Simethicone 80 Mg Tab.chew 80 Mg PO PRN AFTMEALHC PRN 14 05/20/18 Rx Senna (Sennosides) 8.6 Mg Tablet 8.6 Mg PO BID 05/18/18 Reported NICODERM CQ 7mg (Nicotine) 1 Each Patch.td24 1 Patch TD DAILY 05/18/18 Reported Maalox Advanced Suspension (Mag Hydrox/Aluminum Hyd/Simeth) 355 Ml Oral.susp 355 Ml PO PRN Q6HRS PRN 05/18/18 Reported Duoneb 0.5-3(2.5) Mg/3 Ml (Albuterol/Ipratropium) 3 Ml Ampul.neb 3 Ml NEB RTQID MDD 1 05/10/18 Rx Protonix (Pantoprazole Sodium) 40 Mg Tablet.dr 40 Mg PO DAILY 11/18/15 Reported Potassium Chloride 10 Meq Capsule.er 10 Meq PO DAILY 11/18/15 Reported Lasix (Furosemide) 20 Mg Tablet 1 Tab PO DAILY 11/18/15 Reported Advair 500-50 Diskus (Fluticasone/Salmeterol) 1 Each Disk.w.dev 1 Puff IH DAILY 10/11/15 Reported Spiriva (Tiotropium Mayer) 18 Mcg Cap.w.dev 1 Cap IH DAILY 10/11/15 Reported Flomax (Tamsulosin Hcl) 0.4 Mg Cap.er.24h 1 Cap PO DAILY 10/11/15 Reported Metoprolol Tartrate 25 Mg Tablet 12.5 Mg PO BID 10/11/15 Reported Impression . IMPRESSION: 1. Acute on chronic hypoxemic/ hypercapnic respiratory failure. 2. Acute exacerbation of chronic obstructive pulmonary disease. 3. Tobacco dependent. 4. Gastroesophageal reflux. 5. Hypertension. Plan . ABG COMPENSATED 1. PRN BiPAP 2. prednisone taper b 3. No need for antibiotics. 4. Nebulized treatments. 5. Nicotine replacement, quit smoking for ever. 6. The patient instructed on the importance of discontinuing tobacco use. 7. increase activity 8. Pt on home O2, 2 liters 24 hr discussed w pt/ RN OK WITH [facility] [facility] [employer] PAULA HAYNES MD Sep 06, 2018 12:04
--- NOTE | 2018-09-06 12:06 | NUR ---
SW arranged transportation via [facility] at 1330. RN and pt notified. Pt also notified Tamy will send some one to look at his Bipap machine this week.
[2018-09-06] MEDS: ENOXAPARIN 40 MG/0.4 ML SYRINGE. SQ SCH (12:25)
--- NOTE | 2018-09-06 13:30 | NUR ---
Pt discharged to home with self care via [facility]. Peripheral IV removed. Home oxygen set up, and all belongings with patient at the time of discharge.
== END 2018-09-06 13:20 | disposition home or self-care (01) | DRG 189 ==
LOC: ER 14:31 → 6 SOUTH 15:49
PROVIDERS: ADMIT Internal Medicine; ATTEND Internal Medicine
PROC: 5A09357 Assistance with Respiratory Ventilation, Less than 24 Consecutive Hours, Continuous Positive Airway Pressure (ICD-10-PCS; principal; 2018-08-30)
PROC: 5A09357 Assistance with Respiratory Ventilation, Less than 24 Consecutive Hours, Continuous Positive Airway Pressure (ICD-10-PCS; 2018-08-31)
PROC: 5A09357 Assistance with Respiratory Ventilation, Less than 24 Consecutive Hours, Continuous Positive Airway Pressure (ICD-10-PCS; 2018-09-01)
PROC: 5A09357 Assistance with Respiratory Ventilation, Less than 24 Consecutive Hours, Continuous Positive Airway Pressure (ICD-10-PCS; 2018-09-02)
PROC: 5A09357 Assistance with Respiratory Ventilation, Less than 24 Consecutive Hours, Continuous Positive Airway Pressure (ICD-10-PCS; 2018-09-03)
PROC: 5A09357 Assistance with Respiratory Ventilation, Less than 24 Consecutive Hours, Continuous Positive Airway Pressure (ICD-10-PCS; 2018-09-04)
PROC: 5A09357 Assistance with Respiratory Ventilation, Less than 24 Consecutive Hours, Continuous Positive Airway Pressure (ICD-10-PCS; 2018-09-05)
DX: J96.22 Acute and chronic respiratory failure with hypercapnia (principal); I47.1 Supraventricular tachycardia; E87.2 Acidosis; J43.9 Emphysema, unspecified; J96.21 Acute and chronic respiratory failure with hypoxia; I11.0 Hypertensive heart disease with heart failure; I50.9 Heart failure, unspecified; K21.9 Gastro-esophageal reflux disease without esophagitis; N40.0 Benign prostatic hyperplasia without lower urinary tract symptoms; F17.210 Nicotine dependence, cigarettes, uncomplicated; F41.9 Anxiety disorder, unspecified; E78.5 Hyperlipidemia, unspecified; I27.20 Pulmonary hypertension, unspecified; E05.90 Thyrotoxicosis, unspecified without thyrotoxic crisis or storm; Z99.81 Dependence on supplemental oxygen; Z79.899 Other long term (current) drug therapy; Z88.5 Allergy status to narcotic agent; Z82.5 Family history of asthma and other chronic lower respiratory diseases; Z79.51 Long term (current) use of inhaled steroids
CPT/HCPCS: 36415; 36600; 71045; 80048; 80053; 80061; 80069; 82805; 83735; 83880; 84439; 84443; 84481; 84484; 85007; 85025; 93005; 94640; 94660; 94760; 96361; 96374; J1650; J2920; J2930; J7030; J7512; J7613; J7620; J7626; 99285-25

== ENCOUNTER 2018-10-15 15:26 | Inpatient (IN) | payer MEDICARE ==
[~2018-10-15] VITALS: Ht 170.2 cm; Wt 69.5 kg
[~2018-10-15 15:26] MED LIST changes: +ALBU2.5V8 NEB; +BENZ100C PO; +GLIM2TAB PO; +INSU100I13 SQ; +METF500T PO; +PRED20TA PO
[2018-10-15] MEDS ORDERED: IPRATRPIUM/ALBUTEROL 0.5/2.5MG 3 ML NEBU. NEB ONE (15:30)
[2018-10-15] MEDS ORDERED: methylPREDNISolone SOD SUCC PF 125 MG/2 ML VIAL. IV ONE (15:30)
[2018-10-15 15:44] LABS: BASO % 1 % (0-3); EOS # 0.1 x10^3/uL (0.0-0.7); EOS % 2 % (0-3); HEMOGLOBIN 11.8 g/dL (13.0-17.5); LYMPH # 0.8 x10^3/uL (1.0-4.8); LYMPH % 15 % (24-48); MEAN CORPUSCULAR HEMOGLOBIN 32 pg (25-35); MEAN CORPUSCULAR HGB CONC 34 g/dL (31-37); MEAN CORPUSCULAR VOLUME 94 fL (79-100); MONO # 0.4 x10^3/uL (0.0-1.1); MONO % 8 % (0-9); NEUT # 3.9 x10^3/uL (1.8-7.7); NEUT % 74 % (31-73); PLATELET COUNT 336 x10^3/uL (140-400); RED BLOOD COUNT 3.74 x10^6/uL (4.30-5.70); RED CELL DISTRIBUTION WIDTH 15.3 % (11.5-14.5); WHITE BLOOD COUNT 5.2 x10^3/uL (4.0-11.0)
[2018-10-15 15:58] LABS: BLOOD UREA NITROGEN 9 mg/dL (8-26); BUN/CREATININE RATIO 18 (6-20); CALCIUM 9.6 mg/dL (8.5-10.1); CHLORIDE 99 mmol/L (98-107); CREATININE 0.5 mg/dL (0.7-1.3); GFR 164.9; GLUCOSE 147 mg/dL (70-99); POTASSIUM 3.8 mmol/L (3.5-5.1); SODIUM 144 mmol/L (136-145)
[2018-10-15 15:58] LABS: BASE EXCESS ABG 16 mmol/L (-3-3); HCO3 ABG 45 mmol/L (21-28); PO2 ABG 58 mmHg (65-108); SAT O2 ABG 90 % (92-99)
--- NOTE | 2018-10-15 15:58 | EKG ---
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
[2018-10-15 16:01] LABS: FIO2 ABG 36; PCO2 ABG 86 mmHg (35-46)
[2018-10-15 16:13] LABS: ALBUMIN 3.6 g/dL (3.4-5.0); ALBUMIN/GLOBULIN RATIO 1.1 (1.0-1.7); ALK PHOS 106 U/L (46-116); ALT (SGPT) 18 U/L (16-63); AST (SGOT) 13 U/L (15-37); CREATINE KINASE 39 U/L (39-308); TOTAL BILIRUBIN 0.3 mg/dL (0.2-1.0); TOTAL PROTEIN 6.9 g/dL (6.4-8.2)
[2018-10-15 16:14] LABS: CARBON DIOXIDE > 45 mmol/L (21-32)
--- NOTE | 2018-10-15 16:23 | PHYS DOC ---
Past Medical History Past Medical History: Asthma, CHF, COPD, GERD, Hypertension, Pneumonia Additional Past Medical Histor: BPH, home oxygen Past Surgical History: Other Additional Past Surgical Histo: left shoulder rotator cuff repair Alcohol Use: Sober Drug Use: None Adult General Chief Complaint Chief Complaint: SHORTNESS OF BREATH HPI HPI Patient is a 68 year old male with history of COPD on 2.5 L of oxygen and CHF who presents via EMS with complaining of shortness of breath. Patient complaining of productive cough with yellow sputum for the last 4 days with generalized weakness and intermittent shortness of breath that getting worse since this morning. Patient currently of constant shortness of breath and bilateral lower chest and upper abdominal pain with episodes of cough. EMS reported the patient had O2 sat of 94% on home oxygen with rales bilaterally wit h consideration of CHF and started patient on CPAP. Review of Systems Review of Systems Constitutional: Denies fever or chills [] Eyes: Denies change in visual acuity, redness, or eye pain [] HENT: Denies nasal congestion or sore throat [] Respiratory: Reports cough and shortness of breath Cardiovascular: No additional information not addressed in HPI [] GI: Denies abdominal pain, nausea, vomiting, bloody stools or diarrhea [] : Denies dysuria or hematuria [] Musculoskeletal: Denies back pain or joint pain [] Integument: Denies rash or skin lesions [] Neurologic: Denies headache, focal weakness or sensory changes [] Endocrine: Denies polyuria or polydipsia [] All other systems were reviewed and found to be within normal limits, except as documented in this note. Current Medications Current Medications Current Medications Medications (Trade) Dose Ordered Sig/Elijah Start Time Stop Time Status Last Admin Dose Admin Albuterol/ Ipratropium (Duoneb) 3 ml 1X ONCE 10/15/18 15:30 10/15/18 15:35 DC 10/15/18 15:38 3 ML Methylprednisolone Sodium Succinate (SOLU-Medrol 125MG VIAL) 125 mg 1X ONCE 10/15/18 15:30 10/15/18 15:35 DC 10/15/18 16:03 125 MG Allergies Allergies Allergies Coded Allergies Type Severity Reaction Last Updated Verified morphine Allergy Intermediate Itching 07/15/18 Yes Physical Exam Physical Exam Constitutional: Well developed, well nourished, moderate distress, non-toxic appearance. [] HENT: Normocephalic, atraumatic. Eyes: PERRLA, EOMI, conjunctiva normal, no discharge. [] Neck: Normal range of motion, no tenderness, supple, no stridor. [] Cardiovascular: Tachycardia, no murmur [] Lungs & Thorax: Acute respiratory distress with decrease of air movement laterally and wheezing and rhonchi Abdomen: Bowel sounds normal, soft, no tenderness, no masses, no pulsatile masses. [] Skin: Warm, dry, no erythema, no rash. [] Back: No tenderness, no CVA tenderness. [] Extremities: No tenderness, no cyanosis, no clubbing, ROM intact, there is lower extremity edema. [] Neurologic: Alert and oriented X 3, no focal deficits noted. [] Psychologic: Affect anxious, judgement normal, mood normal. [] Current Patient Data Vital Signs Vital Signs Date Time Temp Pulse Resp B/P (MAP) Pulse Ox O2 Delivery O2 Flow Rate FiO2 10/15/18 15:26 98.2 99 24 130/69 (89) 96 Nasal Cannula 2.0 98.2 Lab Values Laboratory Tests Test 10/15/18 15:35 White Blood Count 5.2 x10^3/uL (4.0-11.0) Red Blood Count 3.74 x10^6/uL (4.30-5.70) L Hemoglobin 11.8 g/dL (13.0-17.5) L Hematocrit 35.0 % (39.0-53.0) L Mean Corpuscular Volume 94 fL (79-100) Mean Corpuscular Hemoglobin 32 pg (25-35) Mean Corpuscular Hemoglobin Concent 34 g/dL (31-37) Red Cell Distribution Width 15.3 % (11.5-14.5) H Platelet Count 336 x10^3/uL (140-400) Neutrophils (%) (Auto) 74 % (31-73) H Lymphocytes (%) (Auto) 15 % (24-48) L Monocytes (%) (Auto) 8 % (0-9) Eosinophils (%) (Auto) 2 % (0-3) Basophils (%) (Auto) 1 % (0-3) Neutrophils # (Auto) 3.9 x10^3/uL (1.8-7.7) Lymphocytes # (Auto) 0.8 x10^3/uL (1.0-4.8) L Monocytes # (Auto) 0.4 x10^3/uL (0.0-1.1) Eosinophils # (Auto) 0.1 x10^3/uL (0.0-0.7) Basophils # (Auto) 0.0 x10^3/uL (0.0-0.2) Sodium Level 144 mmol/L (136-145) Potassium Level 3.8 mmol/L (3.5-5.1) Chloride Level 99 mmol/L (98-107) Carbon Dioxide Level > 45 mmol/L (21-32) H Anion Gap (6-14) Blood Urea Nitrogen 9 mg/dL (8-26) Creatinine 0.5 mg/dL (0.7-1.3) L Estimated GFR (Cockcroft-Gault) 164.9 BUN/Creatinine Ratio 18 (6-20) Glucose Level 147 mg/dL (70-99) H Lactic Acid Level 0.5 mmol/L (0.4-2.0) Calcium Level 9.6 mg/dL (8.5-10.1) Total Bilirubin 0.3 mg/dL (0.2-1.0) Aspartate Amino Transferase (AST) 13 U/L (15-37) L Alanine Aminotransferase (ALT) 18 U/L (16-63) Alkaline Phosphatase 106 U/L (46-116) Creatine Kinase 39 U/L (39-308) Troponin I Quantitative < 0.017 ng/mL (0.000-0.055) EI-Fcw-Y-Type Natriuretic Peptide 120 pg/mL (0-124) Total Protein 6.9 g/dL (6.4-8.2) Albumin 3.6 g/dL (3.4-5.0) Albumin/Globulin Ratio 1.1 (1.0-1.7) Laboratory Tests 10/15/18 15:35 Laboratory Tests 10/15/18 15:35 EKG EKG EKG interpreted by me. EKG at 1535 showed sinus rhythm at rate of 100, no acute ST and T-wave abnormalities, normal IL and QT intervals. Radiology/Procedures Radiology/Procedures [facility] [address] [place] [address] IMAGING REPORT Signed PATIENT: YOUNG PENNINGTON DACCOUNT: [id number] : 1950 LOCATION: ER AGE: 68 SEX: M EXAM STATUS: REG ER ORD. PHYSICIAN: GAIL CASTRO MD REASON: shortness of breath PROCEDURE: PORTABLE CHEST 1V PORTABLE CHEST 1V Clinical indications: Shortness of breath. COMPARISON: September 16, 2018. Findings: Chronic hyperinflation and chronic interstitial thickening is seen consistent with COPD. No new lung consolidation or pleural effusion or Any B line's or lung mass or pneumothorax is seen. The heart size, pulmonary vasculature, mediastinum and both tylor are unremarkable. Impression: COPD. No acute radiographic abnormality is seen. Electronically signed by: Dahlia Pérez MD (10/15/2018 4:19 PM) [place] [id number] DICTATED and SIGNED BY: DAHLIA PÉREZ MD DATE: 10/15/18 161 Course & Med Decision Making Course & Med Decision Making Pertinent Labs and Imaging studies reviewed. (See chart for details) Evaluation of patient in ER showed 68-year-old male patient with history of COPD and CHF on home oxygen use in by EMS because of shortness of breath and cough. ABG showed PCO2 of 86 without confusion and patient was started on BiPAP. Chest x-ray did not show infiltration and BMP was unremarkable. Patient treated with IV fluid, DuoNeb, Solu-Medrol and antibiotic and felt better. Patient requiring admission for further evaluation and treatment. Discussed with Dr. Aiken who is in agreement with admission. Discussed findings and plan with patient and family, who acknowledge understanding and agreement. Dragon Disclaimer Dragon Disclaimer This electronic medical record was generated, in whole or in part, using a voice recognition dictation system. Departure Departure Impression: Primary Impression: Acute respiratory distress Additional Impressions: COPD exacerbation CO2 retention Chronic anemia Disposition: ADMITTED INPATIENT (at 1609) Admitting Physician: SID (Dr. Aiken accepted admission at 1609) Condition: GUARDED Referrals: DUSTY RAGSDALE MD (PCP) Critical Care Time Critical care time was 60 minutes exclusive of procedures. Problem Qualifiers GAIL CASTRO MD Oct 15, 2018 16:23
[2018-10-15] MEDS ORDERED: IV NORMAL SALINE 1000ML BAG 1,000 ML IV ONE (16:30)
[2018-10-15] MEDS ORDERED: cefTRIAXone IV Push 1 GM VIAL. IVP ONE (16:30)
--- NOTE | 2018-10-15 16:32 | PDOC1 ---
History and Physical Date of Admission Date of Admission DATE: 10/15/18 TIME: 16:28 Identification/Chief Complaint Chief Complaint SOA, phlegm, yellow Source Source: Caregiver, Chart review, Patient History of Present Illness History of Present Illness NEver smoker, O2 2LNC 22/09 at home, I admitted last month for th eff: Date of Admission: Sep 16, 2018 Date of Discharge: Sep 21, 2018 Admitting Diagnosis Comment: copd. Exacerbation, severe Advanced COPD HCAP - was here within the last 3 mos HX lung infections in younger yrs SMoker since age 11 Smoker quit 3 weeks ago Hypertension, controlled OA Hyperglycemia with no diagnosis of diabetes - hgb a1c 09/04 COMES AGAIN FOR THE SAME, YELLOW PHLGEM, NO FEVERS, NO CP, CXR NO CONSOLIDATION BUT CO2 ON ABG IS 86, PH 7.34 ON BIPAP DENIES EVER SMOKING ONLY ON ALBUTEROL, CANT AFFORD EXPENSIVE INH STEROIDS Past Medical History Cardiovascular: No pertinent hx, Other Pulmonary: Bronchitis, COPD, Pneumonia, Other GI: No pertinent hx Heme/Onc: No pertinent hx Hepatobiliary: No pertinent hx Psych: No pertinent hx Musculoskeletal: No pain Rheumatologic: No pertinent hx Infectious disease: No pertinent hx Renal/: No pertinent hx Endocrine: No pertinent hx Past Surgical History Past Surgical History: Arthroscopy Family History Family History: Hypertension Social History Smoke: No ALCOHOL: none Drugs: None Current Medications Current Medications Current Medications Albuterol/ Ipratropium (Duoneb) 3 ml 1X ONCE NEB Last administered on 10/15/18at 15:38; Start 10/15/18 at 15:30; Stop 10/15/18 at 15:35; Status DC Methylprednisolone Sodium Succinate (SOLU-Medrol 125MG VIAL) 125 mg 1X ONCE IV Last administered on 10/15/18at 16:03; Start 10/15/18 at 15:30; Stop 10/15/18 at 15:35; Status DC Active Scripts Active Amaryl (Glimepiride) 2 Mg Tablet 2 Mg PO DAILY Lantus Solostar (Insulin Glargine,Hum.rec.anlog) 100 Unit/1 Ml Insuln.pen 20 Units SQ QHS 30 Days Glucophage (Metformin Hcl) 500 Mg Tablet 500 Mg PO BIDWMEALS Guaifenesin Dm Syrup (Guaifenesin/Dextromethorphan) 5 Ml Syrup 10 Ml PO PRN Q6HRS PRN 7 Days Proair Hfa (Albuterol Sulfate) 8.5 Gm Hfa.aer.ad 2.5 Mg NEB PRN Q4HRS PRN 30 Days Tessalon Perle (Benzonatate) 100 Mg Capsule 100 Mg PO TID PRN 7 Days Advair 500-50 Diskus (Fluticasone/Salmeterol) 1 Each Disk.w.dev 1 Puff IH BID Duoneb 0.5-3(2.5) Mg/3 Ml (Albuterol/Ipratropium) 3 Ml Ampul.neb 3 Ml NEB RTQID MDD 1 Reported Senna (Sennosides) 8.6 Mg Tablet 8.6 Mg PO BID Maalox Advanced Suspension (Mag Hydrox/Aluminum Hyd/Simeth) 355 Ml Oral.susp 355 Ml PO PRN Q6HRS PRN Protonix (Pantoprazole Sodium) 40 Mg Tablet.dr 40 Mg PO DAILY Potassium Chloride 10 Meq Capsule.er 10 Meq PO DAILY Lasix (Furosemide) 20 Mg Tablet 1 Tab PO DAILY Flomax (Tamsulosin Hcl) 0.4 Mg Cap.er.24h 1 Cap PO DAILY Metoprolol Tartrate 25 Mg Tablet 12.5 Mg PO BID Allergies Allergies: Coded Allergies: morphine (Verified Allergy, Intermediate, Itching, 07/15/18) ROS Review of System PER HPI, NO FEVER, POSITIVE FOR SOA AND PHLEGM, THE REST 14 PT NEG Physical Exam General: mild distress, Other (on bipap) HEENT: Atraumatic, PERRLA, EOMI Lungs: Normal air movement, Other (sce, wheezes, no crackles) Heart: S1S2, RRR, no thrills, no rubs, no gallops, no murmurs Cardiovascular: S1, S2 Breasts: Normal, Rt breast nml w/o mass, Lt breast nml w/o mass, Nipples normal Abdomen: Normal bowel sounds, Soft, No tenderness, No hepatosplenomegaly, No masses Rectal Exam: not examined PELVIC: Nml ext genitalia Extremities: No clubbing Skin: No rashes, No breakdown, No significant lesion Neuro: Normal gait, Normal speech, Strength at 5/5 X4 ext, Normal tone, Sensation intact, Cranial nerves 3-12 NL, Reflexes 2+ Psych/Mental Status: Mental status NL, Mood NL Vitals Vitals Vital Signs Date Time Temp Pulse Resp B/P (MAP) Pulse Ox O2 Delivery O2 Flow Rate FiO2 10/15/18 16:15 92 BiPAP/CPAP 10/15/18 15:40 4.0 10/15/18 15:26 98.2 99 24 130/69 (89) 98.2 Labs Labs Laboratory Tests Test 10/15/18 15:35 10/15/18 15:50 White Blood Count 5.2 x10^3/uL (4.0-11.0) Red Blood Count 3.74 x10^6/uL (4.30-5.70) Hemoglobin 11.8 g/dL (13.0-17.5) Hematocrit 35.0 % (39.0-53.0) Mean Corpuscular Volume 94 fL (79-100) Mean Corpuscular Hemoglobin 32 pg (25-35) Mean Corpuscular Hemoglobin Concent 34 g/dL (31-37) Red Cell Distribution Width 15.3 % (11.5-14.5) Platelet Count 336 x10^3/uL (140-400) Neutrophils (%) (Auto) 74 % (31-73) Lymphocytes (%) (Auto) 15 % (24-48) Monocytes (%) (Auto) 8 % (0-9) Eosinophils (%) (Auto) 2 % (0-3) Basophils (%) (Auto) 1 % (0-3) Neutrophils # (Auto) 3.9 x10^3/uL (1.8-7.7) Lymphocytes # (Auto) 0.8 x10^3/uL (1.0-4.8) Monocytes # (Auto) 0.4 x10^3/uL (0.0-1.1) Eosinophils # (Auto) 0.1 x10^3/uL (0.0-0.7) Basophils # (Auto) 0.0 x10^3/uL (0.0-0.2) Sodium Level 144 mmol/L (136-145) Potassium Level 3.8 mmol/L (3.5-5.1) Chloride Level 99 mmol/L (98-107) Carbon Dioxide Level > 45 mmol/L (21-32) Anion Gap (6-14) Blood Urea Nitrogen 9 mg/dL (8-26) Creatinine 0.5 mg/dL (0.7-1.3) Estimated GFR (Cockcroft-Gault) 164.9 BUN/Creatinine Ratio 18 (6-20) Glucose Level 147 mg/dL (70-99) Lactic Acid Level 0.5 mmol/L (0.4-2.0) Calcium Level 9.6 mg/dL (8.5-10.1) Total Bilirubin 0.3 mg/dL (0.2-1.0) Aspartate Amino Transf (AST/SGOT) 13 U/L (15-37) Alanine Aminotransferase (ALT/SGPT) 18 U/L (16-63) Alkaline Phosphatase 106 U/L (46-116) Creatine Kinase 39 U/L (39-308) Troponin I Quantitative < 0.017 ng/mL (0.000-0.055) AU-Kbl-X-Type Natriuretic Peptide 120 pg/mL (0-124) Total Protein 6.9 g/dL (6.4-8.2) Albumin 3.6 g/dL (3.4-5.0) Albumin/Globulin Ratio 1.1 (1.0-1.7) O2 Saturation 90 % (92-99) Arterial Blood pH 7.34 (7.35-7.45) Arterial Blood pCO2 at Patient Temp 86 mmHg (35-46) Arterial Blood pO2 at Patient Temp 58 mmHg (65-108) Arterial Blood HCO3 45 mmol/L (21-28) Arterial Blood Base Excess 16 mmol/L (-3-3) FiO2 36 Laboratory Tests Test 10/15/18 15:35 10/15/18 15:50 White Blood Count 5.2 x10^3/uL (4.0-11.0) Red Blood Count 3.74 x10^6/uL (4.30-5.70) Hemoglobin 11.8 g/dL (13.0-17.5) Hematocrit 35.0 % (39.0-53.0) Mean Corpuscular Volume 94 fL (79-100) Mean Corpuscular Hemoglobin 32 pg (25-35) Mean Corpuscular Hemoglobin Concent 34 g/dL (31-37) Red Cell Distribution Width 15.3 % (11.5-14.5) Platelet Count 336 x10^3/uL (140-400) Neutrophils (%) (Auto) 74 % (31-73) Lymphocytes (%) (Auto) 15 % (24-48) Monocytes (%) (Auto) 8 % (0-9) Eosinophils (%) (Auto) 2 % (0-3) Basophils (%) (Auto) 1 % (0-3) Neutrophils # (Auto) 3.9 x10^3/uL (1.8-7.7) Lymphocytes # (Auto) 0.8 x10^3/uL (1.0-4.8) Monocytes # (Auto) 0.4 x10^3/uL (0.0-1.1) Eosinophils # (Auto) 0.1 x10^3/uL (0.0-0.7) Basophils # (Auto) 0.0 x10^3/uL (0.0-0.2) Sodium Level 144 mmol/L (136-145) Potassium Level 3.8 mmol/L (3.5-5.1) Chloride Level 99 mmol/L (98-107) Carbon Dioxide Level > 45 mmol/L (21-32) Anion Gap (6-14) Blood Urea Nitrogen 9 mg/dL (8-26) Creatinine 0.5 mg/dL (0.7-1.3) Estimated GFR (Cockcroft-Gault) 164.9 BUN/Creatinine Ratio 18 (6-20) Glucose Level 147 mg/dL (70-99) Lactic Acid Level 0.5 mmol/L (0.4-2.0) Calcium Level 9.6 mg/dL (8.5-10.1) Total Bilirubin 0.3 mg/dL (0.2-1.0) Aspartate Amino Transf (AST/SGOT) 13 U/L (15-37) Alanine Aminotransferase (ALT/SGPT) 18 U/L (16-63) Alkaline Phosphatase 106 U/L (46-116) Creatine Kinase 39 U/L (39-308) Troponin I Quantitative < 0.017 ng/mL (0.000-0.055) TU-Ytv-E-Type Natriuretic Peptide 120 pg/mL (0-124) Total Protein 6.9 g/dL (6.4-8.2) Albumin 3.6 g/dL (3.4-5.0) Albumin/Globulin Ratio 1.1 (1.0-1.7) O2 Saturation 90 % (92-99) Arterial Blood pH 7.34 (7.35-7.45) Arterial Blood pCO2 at Patient Temp 86 mmHg (35-46) Arterial Blood pO2 at Patient Temp 58 mmHg (65-108) Arterial Blood HCO3 45 mmol/L (21-28) Arterial Blood Base Excess 16 mmol/L (-3-3) FiO2 36 VTE Prophylaxis Ordered VTE Prophylaxis Devices: Yes VTE Pharmacological Prophylaxi: Yes Assessment/Plan Assessment/Plan HYPERCAPNEIC Respi failure copd. Exacerbation, severe on NIPPV Advanced COPD HX lung infections in younger yrs Tobacoism hx - my last note says he smoked at age 11, quit 3 weeks ago - Hypertension, controlled OA Hyperglycemia with no diagnosis of diabetes - hgb a1c 09/04 PLAn: TEle bed, pulmo nebs Steroids IV BIPAP FULL CODE awaiting home meds Seen in ER # 1 Kevin patch no m,ore smoking! ALBERT MONTEZ MD Oct 15, 2018 16:32
[2018-10-15] MEDS ORDERED: fentaNYL PF VIAL 100 MCG/2 ML VIAL IV PRN (16:45)
[2018-10-15] MEDS ORDERED: TEMAZEPAM 7.5 MG CAPSULE PO PRN (16:45)
[2018-10-15] MEDS ORDERED: traMADol 50 MG TABLET PO PRN (16:45)
[2018-10-15] MEDS ORDERED: IV DEXTROSE 5% 250 ML BAG. IV PRN (16:45)
[2018-10-15] MEDS ORDERED: DEXTROSE 50% 25 GM / 50ML DISP.SYRIN. IV PRN (16:45)
[2018-10-15] MEDS: INSULIN LISPRO 300 UNITS/3 ML VIAL. SQ SCH (17:00)
[2018-10-15] MEDS: IV NORMAL SALINE 1000ML BAG 1,000 ML IV SCH (19:38)
[2018-10-15 19:55] VITALS: BP 127/65
[2018-10-15] MEDS: IPRATRPIUM/ALBUTEROL 0.5/2.5MG 3 ML NEBU. NEB SCH (20:18)
[2018-10-15] MEDS: GABAPENTIN 100 MG CAPSULE. PO SCH (20:32)
[2018-10-15] MEDS: guaiFENesin DM 200MG/20MG 10 ML SYRUP PO SCH ×2 (20:33→21:08)
[2018-10-15] MEDS: SENNOSIDES 8.6 MG TABLET PO SCH (20:33)
[2018-10-15] MEDS: BENZONATATE 100 MG CAPSULE. PO SCH (20:33)
[2018-10-15] MEDS ORDERED: PANTOPRAZOLE 40 MG TABLET.DR. PO ONE (22:28)
[2018-10-15] MEDS: methylPREDNISolone SOD SUCC PF 40 MG/ML VIAL. IV SCH (22:31)
[2018-10-15] MEDS: PANTOPRAZOLE 40 MG TABLET.DR. PO SCH (22:32)
[2018-10-15 23:19] VITALS: BP 128/81
[2018-10-16] MEDS: IV NORMAL SALINE 1000ML BAG 1,000 ML IV SCH ×2 (00:29→08:46)
[2018-10-16 03:38] VITALS: BP 141/73
[2018-10-16] MEDS: methylPREDNISolone SOD SUCC PF 40 MG/ML VIAL. IV SCH ×3 (05:57→21:11)
[2018-10-16 07:00] VITALS: BP_SYST 127; BP_SYST 166; BP_DIAS 72; BP_DIAS 97
[2018-10-16] MEDS: IPRATRPIUM/ALBUTEROL 0.5/2.5MG 3 ML NEBU. NEB SCH ×4 (08:04→19:53)
[2018-10-16] MEDS: GLIMEPIRIDE 2 MG TABLET. PO SCH (08:45)
[2018-10-16] MEDS: guaiFENesin DM 200MG/20MG 10 ML SYRUP PO SCH ×4 (08:45→21:11)
[2018-10-16] MEDS: BENZONATATE 100 MG CAPSULE. PO SCH ×3 (08:45→21:10)
[2018-10-16] MEDS: POTASSIUM CHLORIDE 10 MEQ TABLET.ER. PO SCH (08:45)
[2018-10-16] MEDS: TAMSULOSIN 0.4 MG CAP.ER.24H. PO SCH (08:45)
[2018-10-16] MEDS: GABAPENTIN 100 MG CAPSULE. PO SCH ×3 (08:46→21:11)
[2018-10-16] MEDS: SENNOSIDES 8.6 MG TABLET PO SCH ×2 (08:46→21:11)
[2018-10-16] MEDS: FUROSEMIDE 20 MG TABLET PO SCH (08:46)
[2018-10-16] MEDS: INSULIN LISPRO 300 UNITS/3 ML VIAL. SQ SCH ×3 (09:00→17:50)
--- NOTE | 2018-10-16 09:37 | PDOC ---
Provider Note Provider Note [id number] acute resp fail ae of copd acute bronchitis steroid abx bipap MARITZA JAMES MD Oct 16, 2018 09:37
--- NOTE | 2018-10-16 09:50 | CONS ---
DATE OF CONSULTATION: 10/16/2018 I was asked to see this 68-year-old gentleman for [id number] respiratory failure. HISTORY OF PRESENT ILLNESS: He has a history of 54-jusf-ewup smoking, stopped smoking about a month ago. He was brought to the Emergency Room via masks for increased shortness of breath, cough, wheezing. He is usually on oxygen 2.5 liters via nasal cannula. He does use Trilogy at night, but it has not been working. He has had fever and chills. Denies runny nose. He denies gastroesophageal reflux symptoms. PAST MEDICAL HISTORY: COPD, CHF, hypertension, and chronic respiratory failure. ALLERGIES: MORPHINE. MEDICATIONS: Currently, he is on Flomax, KCl, Amaryl, Lasix, Protonix, Solu-Medrol 40 mg IV every 8, Neurontin, and DuoNeb. SOCIAL HISTORY: History of 23-vxpa-wxwj smoking, stopped smoking about a month ago. FAMILY HISTORY: Hypertension. REVIEW OF SYSTEMS: As mentioned as above, other systems otherwise negative. PHYSICAL EXAMINATION: GENERAL: This is an elderly gentleman. VITAL SIGNS: His O2 saturation on BiPAP is 96%, respiratory rate 20, heart rate 87, blood pressure 127/72, and temperature 96. HEENT: Normocephalic, atraumatic. Pupils equal, round, reactive to light. He is on BiPAP mask. NECK: There is no JVD, lymphadenopathy or thyromegaly. CARDIOVASCULAR: Regular rate and rhythm. Distant heart sounds. CHEST: Inspection is normal. LUNGS: There are diminished breath sounds, dullness at the bases. ABDOMEN: Soft. Bowel sounds are good. There is no mass. EXTREMITIES: There is edema. LYMPHATICS: There is no lymphadenopathy. SKIN: Warm. NEUROLOGIC: Alert. LABORATORY DATA: I reviewed the following lab data. ABG yesterday, pH 7.34, pCO2 of 86, pO2 of 58 on 3 liters of oxygen. Sodium 143, potassium 4.5, chloride 100, CO2 of 42, BUN 1, creatinine 0.4. Lactic acid 0.5. BNP 120. Troponin less than 0.01. WBC 5.2, hemoglobin 11.8, platelets 336. Chest x-ray: There are no infiltrates, COPD changes. IMPRESSION: 1. Acute on chronic respiratory failure secondary to acute exacerbation of chronic obstructive pulmonary disease, acute bronchitis versus others. 2. Acute exacerbation of chronic obstructive pulmonary disease. 3. Acute bronchitis. 4. Ex-smoker. 5. Congestive heart failure. PLAN AND RECOMMENDATIONS: 1. Titrate FiO2 to keep O2 saturation 90%. 2. Bronchodilator. 3. Continue Solu-Medrol. 4. Continue BiPAP p.r.n. during day, continuously at night. 5. We need to make sure his Trilogy machine is in working condition at home. 6. Continue not smoking. 7. I will do a lower extremity venous Doppler. 8. Monitor respiratory status very closely. 9. The findings and recommendations were discussed with the patient. He understood and agreed to proceed with the plan. I have answered all of his questions. Thank you very much for allowing me to participate in care of this very nice gentleman. MARITZA JAMES M.D. DR: Nakul JOB#: [id number] / [id number]
[2018-10-16 11:00] VITALS: BP 124/69
--- NOTE | 2018-10-16 11:35 | RAD ---
Ultrasound venous system of the legs 10/16/2018. Reason for exam: Leg swelling. Shortness of breath. Possible DVT. Color Doppler and spectral waveform analysis was performed along with real-time grayscale technique. The deep venous system of both lower extremities shows normal compressibility and normal Doppler flow and augmentation of flow extending from the common femoral segment to the popliteal segment. The visualized calf veins also appear normal. IMPRESSION: No evidence of DVT. Electronically signed by: Jerson Bai Jr., MD (10/16/2018 11:32 AM) [facility]
[2018-10-16] MEDS: NICOTINE 14MG PATCH. TD SCH (12:48)
--- NOTE | 2018-10-16 13:13 | PDOC ---
[employer] PROGRESS NOTE Chief Complaint Chief Complaint Acute Respiratory Distress COPD Bronchitis Pneumonia Arthroscopy History of Present Illness History of Present Illness 10/16/18 Pt seen/examined at bedside On BiPAP with 45% FiO2, sating 86% Vitals/I&O Vitals/I&O: Vital Signs Date Time Temp Pulse Resp B/P (MAP) Pulse Ox O2 Delivery O2 Flow Rate FiO2 10/16/18 12:24 96 Nasal Cannula 2.0 10/16/18 11:00 97.8 91 16 124/69 (87) 97.8 I & O 10/15/18 10/15/18 10/16/18 15:00 23:00 07:00 Intake Total 1300 ml 0 ml Output Total 300 ml Balance 1000 ml 0 ml Physical Exam General: Alert, Oriented X3, Cooperative, No acute distress, Other (on bipap) Heart: Regular rate, Normal S1, Normal S2 Lungs: Wheezing Abdomen: Normal bowel sounds, Soft, No tenderness Extremities: No clubbing Skin: No rashes, No breakdown, No significant lesion Labs Labs: Laboratory Tests Test 10/15/18 15:35 10/15/18 15:50 10/16/18 08:15 10/16/18 08:22 White Blood Count 5.2 x10^3/uL (4.0-11.0) Red Blood Count 3.74 x10^6/uL (4.30-5.70) Hemoglobin 11.8 g/dL (13.0-17.5) Hematocrit 35.0 % (39.0-53.0) Mean Corpuscular Volume 94 fL (79-100) Mean Corpuscular Hemoglobin 32 pg (25-35) Mean Corpuscular Hemoglobin Concent 34 g/dL (31-37) Red Cell Distribution Width 15.3 % (11.5-14.5) Platelet Count 336 x10^3/uL (140-400) Neutrophils (%) (Auto) 74 % (31-73) Lymphocytes (%) (Auto) 15 % (24-48) Monocytes (%) (Auto) 8 % (0-9) Eosinophils (%) (Auto) 2 % (0-3) Basophils (%) (Auto) 1 % (0-3) Neutrophils # (Auto) 3.9 x10^3/uL (1.8-7.7) Lymphocytes # (Auto) 0.8 x10^3/uL (1.0-4.8) Monocytes # (Auto) 0.4 x10^3/uL (0.0-1.1) Eosinophils # (Auto) 0.1 x10^3/uL (0.0-0.7) Basophils # (Auto) 0.0 x10^3/uL (0.0-0.2) Sodium Level 144 mmol/L (136-145) 143 mmol/L (136-145) Potassium Level 3.8 mmol/L (3.5-5.1) 4.5 mmol/L (3.5-5.1) Chloride Level 99 mmol/L (98-107) 100 mmol/L (98-107) Carbon Dioxide Level > 45 mmol/L (21-32) 42 mmol/L (21-32) Anion Gap (6-14) 1 (6-14) Blood Urea Nitrogen 9 mg/dL (8-26) 11 mg/dL (8-26) Creatinine 0.5 mg/dL (0.7-1.3) 0.4 mg/dL (0.7-1.3) Estimated GFR (Cockcroft-Gault) 164.9 213.3 BUN/Creatinine Ratio 18 (6-20) Glucose Level 147 mg/dL (70-99) 196 mg/dL (70-99) Lactic Acid Level 0.5 mmol/L (0.4-2.0) Calcium Level 9.6 mg/dL (8.5-10.1) 8.9 mg/dL (8.5-10.1) Total Bilirubin 0.3 mg/dL (0.2-1.0) Aspartate Amino Transf (AST/SGOT) 13 U/L (15-37) Alanine Aminotransferase (ALT/SGPT) 18 U/L (16-63) Alkaline Phosphatase 106 U/L (46-116) Creatine Kinase 39 U/L (39-308) Troponin I Quantitative < 0.017 ng/mL (0.000-0.055) FM-Hvz-S-Type Natriuretic Peptide 120 pg/mL (0-124) Total Protein 6.9 g/dL (6.4-8.2) Albumin 3.6 g/dL (3.4-5.0) Albumin/Globulin Ratio 1.1 (1.0-1.7) O2 Saturation 90 % (92-99) Arterial Blood pH 7.34 (7.35-7.45) Arterial Blood pCO2 at Patient Temp 86 mmHg (35-46) Arterial Blood pO2 at Patient Temp 58 mmHg (65-108) Arterial Blood HCO3 45 mmol/L (21-28) Arterial Blood Base Excess 16 mmol/L (-3-3) FiO2 36 Glucose (Fingerstick) 181 mg/dL (70-99) Test 10/16/18 12:16 Glucose (Fingerstick) 247 mg/dL (70-99) Review of Systems Review of Systems: No CO pain No confusion Assessment and Plan Assessmemt and Plan Problems Medical Problems: (1) Acute respiratory distress Status: Acute (2) Chronic anemia Status: Acute (3) CO2 retention Status: Acute Assessment Acute Respiratory Distress COPD Bronchitis Pneumonia Arthroscopy Plan IV steroids BiPAP Stop fluids Zosyn Consult pulm DVT prophylaxis Home meds PT/OT Comment Review of Relevant I have reviewed the following items zaire (where applicable) has been applied. Medications: Current Medications Medications (Trade) Dose Ordered Sig/Elijah Route PRN Reason Start Time Stop Time Status Last Admin Dose Admin Albuterol/ Ipratropium (Duoneb) 3 ml 1X ONCE NEB 10/15/18 15:30 10/15/18 15:35 DC 10/15/18 15:38 Methylprednisolone Sodium Succinate (SOLU-Medrol 125MG VIAL) 125 mg 1X ONCE IV 10/15/18 15:30 10/15/18 15:35 DC 10/15/18 16:03 Sodium Chloride 1,000 ml @ 1,000 mls/hr 1X ONCE IV 10/15/18 16:30 10/15/18 17:29 DC 10/15/18 16:43 Ceftriaxone Sodium (Rocephin) 1 gm 1X ONCE IVP 10/15/18 16:30 10/15/18 16:31 DC 10/15/18 16:43 Sodium Chloride 1,000 ml @ 125 mls/hr Q8H IV 10/15/18 16:25 10/16/18 09:58 DC 10/16/18 09:00 Methylprednisolone Sodium Succinate (SOLU-Medrol 40MG VIAL) 40 mg Q8HRS IV 10/15/18 22:00 10/16/18 05:57 Insulin Human Lispro (HumaLOG) 0-9 UNITS TIDWMEALS SQ 10/15/18 17:00 10/16/18 12:54 Benzonatate (Tessalon Perle) 100 mg [id number] PO 10/15/18 21:00 10/16/18 09:00 Albuterol/ Ipratropium (Duoneb) 3 ml RTQID NEB 10/15/18 20:00 10/16/18 12:23 Guaifenesin (Robitussin Dm) 10 ml QID PO 10/15/18 17:00 10/16/18 12:54 Furosemide (Lasix) 20 mg DAILY PO 10/16/18 09:00 10/16/18 09:00 Glimepiride (Amaryl) 2 mg DAILY PO 10/16/18 09:00 10/16/18 09:00 Pantoprazole Sodium (Protonix) 40 mg DAILYAC PO 10/16/18 07:30 10/15/18 22:32 Potassium Chloride (Klor-Con) 10 meq DAILY PO 10/16/18 09:00 10/16/18 09:00 Sennosides (Senna) 8.6 mg BID PO 10/15/18 21:00 10/16/18 09:00 Tamsulosin HCl (Flomax) 0.4 mg DAILY PO 10/16/18 09:00 10/16/18 09:00 Gabapentin (Neurontin) 100 mg TID PO 10/15/18 21:00 10/16/18 09:00 Nicotine (Nicoderm Cq 14mg) 1 patch DAILY TD 10/16/18 13:00 10/16/18 12:54 ANÍBAL BAUTISTA III DO Oct 16, 2018 13:13
[2018-10-16] MEDS ORDERED: PIP/TAZO PER PHARMACY MC PRN (13:15)
[2018-10-16] MEDS: PIPERACILLIN/TAZOBACTAM 3.375 GM in IV NORMAL SALINE 50ML 50 ML IV SCH ×2 (14:30→21:12)
[2018-10-16 14:52] LABS: ALBUMIN 3.4 g/dL (3.4-5.0); ALBUMIN/GLOBULIN RATIO 1.1 (1.0-1.7); CREATININE 0.4 mg/dL (0.7-1.3); GFR 213.3; POTASSIUM 4.7 mmol/L (3.5-5.1); TOTAL BILIRUBIN 0.2 mg/dL (0.2-1.0); TOTAL PROTEIN 6.4 g/dL (6.4-8.2)
[2018-10-16 15:00] VITALS: BP 139/65
[2018-10-16] MEDS ORDERED: cefTRIAXone IV Push 1 GM VIAL. IVP SCH (16:00)
[2018-10-16] MEDS: MAG HYDROX/ALUMINUM HYD/SIMETH 30 ML ORAL.SUSP PO PRN (17:43)
[2018-10-16 19:30] VITALS: BP 112/65
[2018-10-16 23:50] VITALS: BP 126/68
[2018-10-17] MEDS: PIPERACILLIN/TAZOBACTAM 3.375 GM in IV NORMAL SALINE 50ML 50 ML IV SCH ×4 (03:00→20:35)
[2018-10-17 03:40] VITALS: BP 178/79
[2018-10-17] MEDS: methylPREDNISolone SOD SUCC PF 40 MG/ML VIAL. IV SCH ×3 (06:16→20:34)
[2018-10-17 07:00] VITALS: BP 144/86
[2018-10-17] MEDS: INSULIN LISPRO 300 UNITS/3 ML VIAL. SQ SCH ×3 (08:00→17:00)
[2018-10-17] MEDS: IPRATRPIUM/ALBUTEROL 0.5/2.5MG 3 ML NEBU. NEB SCH ×4 (08:01→20:14)
--- NOTE | 2018-10-17 08:35 | PDOC ---
PULMONARY PROGRESS NOTES Subjective used bipap overnight, sob better, has cough, no pain Vitals Vital Signs Date Time Temp Pulse Resp B/P (MAP) Pulse Ox O2 Delivery O2 Flow Rate FiO2 10/17/18 08:02 100 Nasal Cannula 2.0 10/17/18 03:40 97.7 90 22 178/79 (112) 97.7 ROS: No Nausea, No Chest Pain General: Alert, Oriented X4, No acute distress, Moderate Distress HEENT: Other Lungs: Other (deminished bs) Cardiovascular: S1, S2 Abdomen: Soft, Non-tender Neuro Exam: Alert Extremities: No Edema, Other Skin: Warm Labs Laboratory Tests Test 10/15/18 15:35 10/15/18 15:50 10/16/18 08:15 10/16/18 08:22 White Blood Count 5.2 x10^3/uL (4.0-11.0) Red Blood Count 3.74 x10^6/uL (4.30-5.70) Hemoglobin 11.8 g/dL (13.0-17.5) Hematocrit 35.0 % (39.0-53.0) Mean Corpuscular Volume 94 fL (79-100) Mean Corpuscular Hemoglobin 32 pg (25-35) Mean Corpuscular Hemoglobin Concent 34 g/dL (31-37) Red Cell Distribution Width 15.3 % (11.5-14.5) Platelet Count 336 x10^3/uL (140-400) Neutrophils (%) (Auto) 74 % (31-73) Lymphocytes (%) (Auto) 15 % (24-48) Monocytes (%) (Auto) 8 % (0-9) Eosinophils (%) (Auto) 2 % (0-3) Basophils (%) (Auto) 1 % (0-3) Neutrophils # (Auto) 3.9 x10^3/uL (1.8-7.7) Lymphocytes # (Auto) 0.8 x10^3/uL (1.0-4.8) Monocytes # (Auto) 0.4 x10^3/uL (0.0-1.1) Eosinophils # (Auto) 0.1 x10^3/uL (0.0-0.7) Basophils # (Auto) 0.0 x10^3/uL (0.0-0.2) Sodium Level 144 mmol/L (136-145) 144 mmol/L (136-145) Potassium Level 3.8 mmol/L (3.5-5.1) 4.7 mmol/L (3.5-5.1) Chloride Level 99 mmol/L (98-107) 102 mmol/L (98-107) Carbon Dioxide Level > 45 mmol/L (21-32) 41 mmol/L (21-32) Anion Gap (6-14) 1 (6-14) Blood Urea Nitrogen 9 mg/dL (8-26) 11 mg/dL (8-26) Creatinine 0.5 mg/dL (0.7-1.3) 0.4 mg/dL (0.7-1.3) Estimated GFR (Cockcroft-Gault) 164.9 213.3 BUN/Creatinine Ratio 18 (6-20) 28 (6-20) Glucose Level 147 mg/dL (70-99) 195 mg/dL (70-99) Lactic Acid Level 0.5 mmol/L (0.4-2.0) Calcium Level 9.6 mg/dL (8.5-10.1) 9.0 mg/dL (8.5-10.1) Total Bilirubin 0.3 mg/dL (0.2-1.0) 0.2 mg/dL (0.2-1.0) Aspartate Amino Transf (AST/SGOT) 13 U/L (15-37) 13 U/L (15-37) Alanine Aminotransferase (ALT/SGPT) 18 U/L (16-63) 18 U/L (16-63) Alkaline Phosphatase 106 U/L (46-116) 99 U/L (46-116) Creatine Kinase 39 U/L (39-308) Troponin I Quantitative < 0.017 ng/mL (0.000-0.055) AE-Kyn-B-Type Natriuretic Peptide 120 pg/mL (0-124) Total Protein 6.9 g/dL (6.4-8.2) 6.4 g/dL (6.4-8.2) Albumin 3.6 g/dL (3.4-5.0) 3.4 g/dL (3.4-5.0) Albumin/Globulin Ratio 1.1 (1.0-1.7) 1.1 (1.0-1.7) O2 Saturation 90 % (92-99) Arterial Blood pH 7.34 (7.35-7.45) Arterial Blood pCO2 at Patient Temp 86 mmHg (35-46) Arterial Blood pO2 at Patient Temp 58 mmHg (65-108) Arterial Blood HCO3 45 mmol/L (21-28) Arterial Blood Base Excess 16 mmol/L (-3-3) FiO2 36 Glucose (Fingerstick) 181 mg/dL (70-99) Test 10/16/18 12:16 10/16/18 17:23 10/16/18 20:42 Glucose (Fingerstick) 247 mg/dL (70-99) 268 mg/dL (70-99) 257 mg/dL (70-99) Laboratory Tests Test 10/16/18 12:16 10/16/18 17:23 10/16/18 20:42 Glucose (Fingerstick) 247 mg/dL (70-99) 268 mg/dL (70-99) 257 mg/dL (70-99) Medications Active Scripts Medications Dose Route/Sig Max Daily Dose Days Date Category Amaryl (Glimepiride) 2 Mg Tablet 2 Mg PO DAILY 09/21/18 Rx Lantus Solostar (Insulin Glargine,Hum.rec.anlog) 100 Unit/1 Ml Insuln.pen 20 Units SQ QHS 30 09/21/18 Rx Glucophage (Metformin Hcl) 500 Mg Tablet 500 Mg PO BIDWMEALS 09/21/18 Rx Guaifenesin Dm Syrup (Guaifenesin/Dextromethorphan) 5 Ml Syrup 10 Ml PO PRN Q6HRS PRN 7 09/21/18 Rx Proair Hfa (Albuterol Sulfate) 8.5 Gm Hfa.aer.ad 2.5 Mg NEB PRN Q4HRS PRN 30 09/21/18 Rx Tessalon Perle (Benzonatate) 100 Mg Capsule 100 Mg PO TID PRN 7 09/21/18 Rx Advair 500-50 Diskus (Fluticasone/Salmeterol) 1 Each Disk.w.dev 1 Puff IH BID 08/08/18 Rx Senna (Sennosides) 8.6 Mg Tablet 8.6 Mg PO BID 05/18/18 Reported Maalox Advanced Suspension (Mag Hydrox/Aluminum Hyd/Simeth) 355 Ml Oral.susp 355 Ml PO PRN Q6HRS PRN 05/18/18 Reported Duoneb 0.5-3(2.5) Mg/3 Ml (Albuterol/Ipratropium) 3 Ml Ampul.neb 3 Ml NEB RTQID MDD 1 05/10/18 Rx Protonix (Pantoprazole Sodium) 40 Mg Tablet.dr 40 Mg PO DAILY 11/18/15 Reported Potassium Chloride 10 Meq Capsule.er 10 Meq PO DAILY 11/18/15 Reported Lasix (Furosemide) 20 Mg Tablet 1 Tab PO DAILY 11/18/15 Reported Flomax (Tamsulosin Hcl) 0.4 Mg Cap.er.24h 1 Cap PO DAILY 10/11/15 Reported Metoprolol Tartrate 25 Mg Tablet 12.5 Mg PO BID 10/11/15 Reported Impression . IMPRESSION: 1. Acute on chronic respiratory failure secondary to acute exacerbation of chronic obstructive pulmonary disease, acute bronchitis 2. Acute exacerbation of chronic obstructive pulmonary disease. 3. Acute bronchitis. 4. Ex-smoker. 5. Congestive heart failure. Plan . PLAN AND RECOMMENDATIONS: 1. Titrate FiO2 to keep O2 saturation 90%. 2. Bronchodilator. 3. change Solu-Medrol to bid, cont abx 4. Continue BiPAP p.r.n. during day, continuously at night. 5. We need to make sure his Trilogy machine is in working condition at home. need to consult sw 6. Continue not smoking. 7. lower extremity venous Doppler, neg. discussed w pt MARITZA JAMES MD Oct 17, 2018 08:35
[2018-10-17] MEDS: PANTOPRAZOLE 40 MG TABLET.DR. PO SCH (08:51)
[2018-10-17] MEDS: POTASSIUM CHLORIDE 10 MEQ TABLET.ER. PO SCH (08:51)
[2018-10-17] MEDS: BENZONATATE 100 MG CAPSULE. PO SCH ×3 (08:51→20:34)
[2018-10-17] MEDS: guaiFENesin DM 200MG/20MG 10 ML SYRUP PO SCH ×4 (08:51→20:34)
[2018-10-17] MEDS: TAMSULOSIN 0.4 MG CAP.ER.24H. PO SCH (08:51)
[2018-10-17] MEDS: GLIMEPIRIDE 2 MG TABLET. PO SCH (08:51)
[2018-10-17] MEDS: SENNOSIDES 8.6 MG TABLET PO SCH ×2 (08:52→20:31)
[2018-10-17] MEDS: GABAPENTIN 100 MG CAPSULE. PO SCH ×3 (08:52→20:34)
[2018-10-17] MEDS: FUROSEMIDE 20 MG TABLET PO SCH (08:52)
[2018-10-17] MEDS: NICOTINE 14MG PATCH. TD SCH (08:52)
[2018-10-17 11:00] VITALS: BP 141/78
--- NOTE | 2018-10-17 12:59 | PDOC ---
[employer] PROGRESS NOTE Chief Complaint Chief Complaint Acute Respiratory Distress COPD Bronchitis Pneumonia Arthroscopy History of Present Illness History of Present Illness 10/17/18 Resting with NAD On BiPAP with 45% FiO2, sating 91% 10/16/18 Pt seen/examined at bedside On BiPAP with 45% FiO2, sating 86% Vitals/I&O Vitals/I&O: Vital Signs Date Time Temp Pulse Resp B/P (MAP) Pulse Ox O2 Delivery O2 Flow Rate FiO2 10/17/18 11:14 96 BiPAP/CPAP 10/17/18 11:00 97.3 86 24 141/78 (99) 2.0 97.3 I & O 10/16/18 10/16/18 10/17/18 15:00 23:00 07:00 Intake Total 300 ml 350 ml Balance 300 ml 350 ml Physical Exam General: Alert, Oriented X3, Cooperative, No acute distress, Other (on bipap) Heart: Regular rate, Normal S1, Normal S2 Lungs: Other (deminished bs) Abdomen: Normal bowel sounds, Soft, No tenderness Extremities: No clubbing Skin: No rashes, No breakdown, No significant lesion Labs Labs: Laboratory Tests Test 10/16/18 17:23 10/16/18 20:42 10/17/18 08:21 10/17/18 08:30 Glucose (Fingerstick) 268 mg/dL (70-99) 257 mg/dL (70-99) 136 mg/dL (70-99) Sodium Level 144 mmol/L (136-145) Potassium Level 4.9 mmol/L (3.5-5.1) Chloride Level 101 mmol/L (98-107) Carbon Dioxide Level 43 mmol/L (21-32) Anion Gap 0 (6-14) Blood Urea Nitrogen 21 mg/dL (8-26) Creatinine 0.6 mg/dL (0.7-1.3) Estimated GFR (Cockcroft-Gault) 133.6 Glucose Level 168 mg/dL (70-99) Calcium Level 9.3 mg/dL (8.5-10.1) Review of Systems Review of Systems: Unable to obtain, pt resting with NAD Assessment and Plan Assessmemt and Plan Problems Medical Problems: (1) Acute respiratory distress Status: Acute (2) Chronic anemia Status: Acute (3) CO2 retention Status: Acute Assessment Acute Respiratory Distress COPD Bronchitis Pneumonia Arthroscopy Plan IV steroids BiPAP Zosyn Appreciate pulm input DVT prophylaxis Home meds PT/OT Comment Review of Relevant I have reviewed the following items zaire (where applicable) has been applied. Medications: Current Medications Medications (Trade) Dose Ordered Sig/Elijah Route PRN Reason Start Time Stop Time Status Last Admin Dose Admin Nicotine (Nicoderm Cq 14mg) 1 patch DAILY TD 10/16/18 13:00 10/17/18 08:56 Piperacillin Sod/ Tazobactam Sod 3.375 gm/Sodium Chloride 50 ml @ 100 mls/hr Q6H IV 10/16/18 14:00 10/17/18 06:16 ANÍBAL BAUTISTA III DO Oct 17, 2018 12:59
[2018-10-17 13:24] LABS: ALBUMIN 3.4 g/dL (3.4-5.0); CALCIUM 9.2 mg/dL (8.5-10.1); CREATININE 0.6 mg/dL (0.7-1.3); GFR 133.6; POTASSIUM 4.9 mmol/L (3.5-5.1); TOTAL BILIRUBIN 0.2 mg/dL (0.2-1.0); TOTAL PROTEIN 6.8 g/dL (6.4-8.2)
[2018-10-17 15:00] VITALS: BP 120/69
[2018-10-17] MEDS ORDERED: VANCOMYCIN 1.5 GM in IV NORMAL SALINE 500ML BAG 500 ML IV ONE (15:00)
[2018-10-17] MEDS: VANCOMYCIN PER PHARMACY MC PRN (17:24)
--- NOTE | 2018-10-17 17:25 | NUR ---
Pharmacy Vancomycin Dosing Note S:Consulted to monitor and dose vancomycin started 10/17/18. O:YOUNG PENNINGTON is a 68 year old M with Bacteremia Pneumonia . Height: 5 feet, 7 inches Weight: 67.149815 kg Bison Body Weight: 66.10 Adjusted Body Weight: 66.46 Dosing Weight: Actual Other Antibiotics: ZOSYN 10/16 - LABS: Last BUN: 22 Last Creatinine: 0.6 Creatinine Clearance: 65 mL/min Last WBC: 5.2 Last Procalcitonin: NO Tmax (past 24 hours): 98 Microbiology: 10/17 BCX GVR, GPC I/O: 650/2 Drug Levels: Last level: on at Last dose given 10/17/18 at 1700 Vancomycin Dosing: Loading Dose: 1500 mg x1 Dosing Weight: Actual Target Trough: 15-20 A: Based on: WEIGHT, CRCL~65, P: 1. INITIATE Vancomycin 1000 mg IV q12h 2. Follow up Trough level on 10/19/18 at 0500 3. Pharmacy will continue to monitor, follow and adjust therapy as needed. HERACLIO HOLT [facility] [place], 10/17/18 [id number]
[2018-10-17 19:20] VITALS: BP 143/84
[2018-10-17] MEDS: LACTOBACILLUS RHAMNOSUS GG 1 CAPSULE. PO SCH (20:34)
[2018-10-17 23:55] VITALS: BP 150/88
[2018-10-18 03:35] VITALS: BP 148/82
[2018-10-18] MEDS: VANCOMYCIN 1 GM in IV NORMAL SALINE 250ML 250 ML IV SCH ×2 (04:30→17:24)
[2018-10-18 05:34] LABS: CALCIUM 8.9 mg/dL (8.5-10.1); CREATININE 0.5 mg/dL (0.7-1.3); GFR 164.9; POTASSIUM 4.5 mmol/L (3.5-5.1)
[2018-10-18] MEDS: methylPREDNISolone SOD SUCC PF 40 MG/ML VIAL. IV SCH ×3 (06:13→22:01)
[2018-10-18] MEDS: PIPERACILLIN/TAZOBACTAM 3.375 GM in IV NORMAL SALINE 50ML 50 ML IV SCH ×6 (06:14→23:38)
[2018-10-18 07:55] VITALS: BP 161/81
[2018-10-18] MEDS: INSULIN LISPRO 300 UNITS/3 ML VIAL. SQ SCH ×3 (08:00→17:32)
[2018-10-18] MEDS: GABAPENTIN 100 MG CAPSULE. PO SCH ×3 (08:03→22:02)
[2018-10-18] MEDS: GLIMEPIRIDE 2 MG TABLET. PO SCH (08:03)
[2018-10-18] MEDS: BENZONATATE 100 MG CAPSULE. PO SCH ×3 (08:03→22:02)
[2018-10-18] MEDS: PANTOPRAZOLE 40 MG TABLET.DR. PO SCH (08:03)
[2018-10-18] MEDS: FUROSEMIDE 20 MG TABLET PO SCH (08:04)
[2018-10-18] MEDS: POTASSIUM CHLORIDE 10 MEQ TABLET.ER. PO SCH (08:04)
[2018-10-18] MEDS: LACTOBACILLUS RHAMNOSUS GG 1 CAPSULE. PO SCH ×2 (08:04→22:02)
[2018-10-18] MEDS: TAMSULOSIN 0.4 MG CAP.ER.24H. PO SCH (08:04)
[2018-10-18] MEDS: SENNOSIDES 8.6 MG TABLET PO SCH ×2 (08:04→21:00)
[2018-10-18] MEDS: NICOTINE 14MG PATCH. TD SCH (08:05)
[2018-10-18] MEDS: guaiFENesin DM 200MG/20MG 10 ML SYRUP PO SCH ×4 (08:05→22:02)
[2018-10-18] MEDS: IPRATRPIUM/ALBUTEROL 0.5/2.5MG 3 ML NEBU. NEB SCH ×4 (09:03→20:04)
--- NOTE | 2018-10-18 09:50 | PDOC ---
Provider Note Provider Note Pt seen and examined ID consult dictated [id number] Thank you ALLIE GIRALDO MD Oct 18, 2018 09:50
--- NOTE | 2018-10-18 10:45 | NUR ---
SS following for discharge planning. SS reviewed pt chart. Pt is from home with family and recently completed half-way stay at [facility]. Pt is currently requiring oxygen. PT recommended home healthcare at discharge. Nurse Navigator to meet with pt to provide education and options for home healthcare. SS will continue to follow for discharge planning.
[2018-10-18 11:22] VITALS: BP 151/75
--- NOTE | 2018-10-18 12:04 | PDOC ---
PULMONARY PROGRESS NOTES Subjective used bipap overnight, sob better, has cough, no pain Vitals Vital Signs Date Time Temp Pulse Resp B/P (MAP) Pulse Ox O2 Delivery O2 Flow Rate FiO2 10/18/18 11:52 98 Nasal Cannula 2.0 10/18/18 11:22 98.6 106 22 151/75 (100) 98.6 ROS: No Nausea, No Chest Pain General: Alert, Oriented X4, No acute distress, Moderate Distress HEENT: Other Lungs: Wheezing Cardiovascular: S1, S2 Abdomen: Soft, Non-tender Neuro Exam: Alert Extremities: No Edema, Other Skin: Warm Labs Laboratory Tests Test 10/16/18 12:16 10/16/18 17:23 10/16/18 20:42 10/17/18 08:21 Glucose (Fingerstick) 247 mg/dL (70-99) 268 mg/dL (70-99) 257 mg/dL (70-99) 136 mg/dL (70-99) Test 10/17/18 08:30 10/17/18 12:02 10/17/18 16:53 10/17/18 21:08 Sodium Level 142 mmol/L (136-145) Potassium Level 4.9 mmol/L (3.5-5.1) Chloride Level 98 mmol/L (98-107) Carbon Dioxide Level 40 mmol/L (21-32) Anion Gap 4 (6-14) Blood Urea Nitrogen 22 mg/dL (8-26) Creatinine 0.6 mg/dL (0.7-1.3) Estimated GFR (Cockcroft-Gault) 133.6 BUN/Creatinine Ratio 37 (6-20) Glucose Level 167 mg/dL (70-99) Calcium Level 9.2 mg/dL (8.5-10.1) Total Bilirubin 0.2 mg/dL (0.2-1.0) Aspartate Amino Transf (AST/SGOT) 7 U/L (15-37) Alanine Aminotransferase (ALT/SGPT) 13 U/L (16-63) Alkaline Phosphatase 86 U/L (46-116) Total Protein 6.8 g/dL (6.4-8.2) Albumin 3.4 g/dL (3.4-5.0) Albumin/Globulin Ratio 1.0 (1.0-1.7) Glucose (Fingerstick) 252 mg/dL (70-99) 115 mg/dL (70-99) 220 mg/dL (70-99) Test 10/18/18 03:45 10/18/18 07:32 Sodium Level 140 mmol/L (136-145) Potassium Level 4.5 mmol/L (3.5-5.1) Chloride Level 99 mmol/L (98-107) Carbon Dioxide Level 40 mmol/L (21-32) Anion Gap 1 (6-14) Blood Urea Nitrogen 24 mg/dL (8-26) Creatinine 0.5 mg/dL (0.7-1.3) Estimated GFR (Cockcroft-Gault) 164.9 Glucose Level 229 mg/dL (70-99) Calcium Level 8.9 mg/dL (8.5-10.1) Glucose (Fingerstick) 141 mg/dL (70-99) Laboratory Tests Test 10/17/18 16:53 10/17/18 21:08 10/18/18 03:45 10/18/18 07:32 Glucose (Fingerstick) 115 mg/dL (70-99) 220 mg/dL (70-99) 141 mg/dL (70-99) Sodium Level 140 mmol/L (136-145) Potassium Level 4.5 mmol/L (3.5-5.1) Chloride Level 99 mmol/L (98-107) Carbon Dioxide Level 40 mmol/L (21-32) Anion Gap 1 (6-14) Blood Urea Nitrogen 24 mg/dL (8-26) Creatinine 0.5 mg/dL (0.7-1.3) Estimated GFR (Cockcroft-Gault) 164.9 Glucose Level 229 mg/dL (70-99) Calcium Level 8.9 mg/dL (8.5-10.1) Medications Active Scripts Medications Dose Route/Sig Max Daily Dose Days Date Category Amaryl (Glimepiride) 2 Mg Tablet 2 Mg PO DAILY 09/21/18 Rx Lantus Solostar (Insulin Glargine,Hum.rec.anlog) 100 Unit/1 Ml Insuln.pen 20 Units SQ QHS 30 09/21/18 Rx Glucophage (Metformin Hcl) 500 Mg Tablet 500 Mg PO BIDWMEALS 09/21/18 Rx Guaifenesin Dm Syrup (Guaifenesin/Dextromethorphan) 5 Ml Syrup 10 Ml PO PRN Q6HRS PRN 7 09/21/18 Rx Proair Hfa (Albuterol Sulfate) 8.5 Gm Hfa.aer.ad 2.5 Mg NEB PRN Q4HRS PRN 30 09/21/18 Rx Tessalon Perle (Benzonatate) 100 Mg Capsule 100 Mg PO TID PRN 7 09/21/18 Rx Advair 500-50 Diskus (Fluticasone/Salmeterol) 1 Each Disk.w.dev 1 Puff IH BID 08/08/18 Rx Senna (Sennosides) 8.6 Mg Tablet 8.6 Mg PO BID 05/18/18 Reported Maalox Advanced Suspension (Mag Hydrox/Aluminum Hyd/Simeth) 355 Ml Oral.susp 355 Ml PO PRN Q6HRS PRN 05/18/18 Reported Duoneb 0.5-3(2.5) Mg/3 Ml (Albuterol/Ipratropium) 3 Ml Ampul.neb 3 Ml NEB RTQID MDD 1 05/10/18 Rx Protonix (Pantoprazole Sodium) 40 Mg Tablet.dr 40 Mg PO DAILY 11/18/15 Reported Potassium Chloride 10 Meq Capsule.er 10 Meq PO DAILY 11/18/15 Reported Lasix (Furosemide) 20 Mg Tablet 1 Tab PO DAILY 11/18/15 Reported Flomax (Tamsulosin Hcl) 0.4 Mg Cap.er.24h 1 Cap PO DAILY 10/11/15 Reported Metoprolol Tartrate 25 Mg Tablet 12.5 Mg PO BID 10/11/15 Reported Impression . 1. Acute on chronic respiratory failure secondary to acute exacerbation of chronic obstructive pulmonary disease, acute bronchitis 2. Acute exacerbation of chronic obstructive pulmonary disease. 3. Acute bronchitis. 4. Ex-smoker. 5. Congestive heart failure. Plan . 1. Titrate FiO2 to keep O2 saturation 90%. 2. Bronchodilator. add pulmicort 3. Solu-Medrol 4. Continue BiPAP p.r.n. during day, continuously at night. 5. We need to make sure his Trilogy machine is in working condition at home. need to consult sw 6. Continue not smoking. 7. lower extremity venous Doppler, neg. discussed w pt PAULA HAYNES MD Oct 18, 2018 12:04
--- NOTE | 2018-10-18 12:06 | CONS ---
DATE OF CONSULTATION: 10/18/2018 REFERRING PHYSICIAN: Marci Aiken MD REASON FOR CONSULTATION: Bacteremia. HISTORY OF PRESENT ILLNESS: A 68-year-old male with history of COPD, on home oxygen, CHF, who presented to the ER on 10/15/2018 with complaints of shortness of breath and productive cough of 4 days prior to admission. His breathing gradually got worse along with generalized weakness. His white count was normal. He was afebrile. He had a pulmonary infiltrate thought to be either CHF versus COPD exacerbation. He was started on Zosyn. Blood cultures were done, 1/4 bottles is positive for GPC in clusters and 1/4 is positive for gram-variable silvano. The patient is started on IV vancomycin. ID consult has been requested for antibiotic management. Today, the patient states he is feeling a little better, less short of breath, still has some cough. Denies any fevers, chills, nausea or vomiting. Does have some loose bowel movement. No abdominal pain. No sick contact. Denies being on any antibiotics prior to admission. PAST MEDICAL HISTORY: Chronic respiratory failure, on home O2, COPD, CHF and hypertension. ALLERGIES: MORPHINE. CURRENT MEDICATION: IV vancomycin, Zosyn, Solu-Medrol. Other medications reviewed in medication list. SOCIAL HISTORY: Quit smoking about a month ago. FAMILY HISTORY: As per HPI. REVIEW OF SYSTEMS: Negative except for above in HPI. PHYSICAL EXAMINATION: VITAL SIGNS: Temperature 98.4, pulse 88, respiratory rate 20, blood pressure 161/81 and oxygen saturation 95% on 2 liters by nasal cannula. GENERAL: Alert, oriented, pleasant male in no acute distress, sitting upright in bed, cooperative and pleasant. HEENT: Normocephalic, atraumatic and anicteric. No thrush. Oral mucosa moist. NECK: Supple, no JVD. LUNGS: Decreased breath sound at bases. HEART: S1, S2. ABDOMEN: Soft, nontender and nondistended. Bowel sounds present. NEUROLOGIC: Alert and oriented x 3, grossly nonfocal. EXTREMITIES: No edema, no cyanosis. DERMATOLOGIC: Warm and dry. No generalized rash. LABORATORY DATA: WBC 5.2, hemoglobin 11.8, hematocrit 35 and platelets 336. Lactate 0.5. Sodium 140, potassium 4.5, chloride 99, bicarbonate 40, BUN 24, creatinine 0.5, glucose 229, calcium 8.9. MICROBIOLOGY: Blood culture 03/05 bottles positive for GPC in clusters, 1/ bottles positive for gram-variable rods. RADIOLOGY: Chest x-ray: COPD, no acute cardiopulmonary abnormality. Lower extremity ultrasound, no evidence of DVT. IMPRESSION: 1. Bacteremia, present on admission 03/05, 10/15/2018, GPC in clusters in 03/05 gram-variable silvano likely contaminant. ID and HERMILO pending at this time. 2. Acute on chronic respiratory failure. 3. Chronic obstructive pulmonary disease. 4. History of congestive heart failure. 5. Hypertension. RECOMMENDATIONS: 1. Continue empiric IV vancomycin and Zosyn. 2. Follow up final ID and HERMILO of GPC in clusters in blood culture. 3. Afebrile, repeat blood cultures. 4. Follow up labs and cultures. 5. Continue supportive care. 6. We will wean off IV antibiotics soon. 7. Monitor renal functions closely. 8. Discussed with RN. Thank you, Dr. Aiken, for consulting Infectious Disease to participate in this patient's care. If you have any questions, do not hesitate to contact me. ALLIE GIRALDO MD DR: RENEE/joshua JOB#: [id number] / [id number] TRICIA
[2018-10-18] MEDS: MAG HYDROX/ALUMINUM HYD/SIMETH 30 ML ORAL.SUSP PO PRN (12:24)
--- NOTE | 2018-10-18 13:22 | PDOC ---
[employer] PROGRESS NOTE Chief Complaint Chief Complaint Acute Respiratory Distress COPD Bronchitis Pneumonia Arthroscopy History of Present Illness History of Present Illness 10/18/18 Pt seen/examined at bedside, resting comfortably On O2 NC, had BiPAP treatment last night, sating 98% Still coughing DW with shelter case manager 10/17/18 Resting with NAD On BiPAP with 45% FiO2, sating 91% 10/16/18 Pt seen/examined at bedside On BiPAP with 45% FiO2, sating 86% Vitals/I&O Vitals/I&O: Vital Signs Date Time Temp Pulse Resp B/P (MAP) Pulse Ox O2 Delivery O2 Flow Rate FiO2 10/18/18 11:52 98 Nasal Cannula 2.0 10/18/18 11:22 98.6 106 22 151/75 (100) 98.6 I & O 10/17/18 10/17/18 10/18/18 14:59 22:59 06:59 Intake Total 300 ml 700 ml Balance 300 ml 700 ml Physical Exam General: Alert, Oriented X3, Cooperative, No acute distress, Other (on bipap) Heart: Regular rate, Normal S1, Normal S2 Lungs: Wheezing Abdomen: Normal bowel sounds, Soft, No tenderness Extremities: No clubbing Skin: No rashes, No breakdown, No significant lesion Labs Labs: Laboratory Tests Test 10/17/18 16:53 10/17/18 21:08 10/18/18 03:45 10/18/18 07:32 Glucose (Fingerstick) 115 mg/dL (70-99) 220 mg/dL (70-99) 141 mg/dL (70-99) Sodium Level 140 mmol/L (136-145) Potassium Level 4.5 mmol/L (3.5-5.1) Chloride Level 99 mmol/L (98-107) Carbon Dioxide Level 40 mmol/L (21-32) Anion Gap 1 (6-14) Blood Urea Nitrogen 24 mg/dL (8-26) Creatinine 0.5 mg/dL (0.7-1.3) Estimated GFR (Cockcroft-Gault) 164.9 Glucose Level 229 mg/dL (70-99) Calcium Level 8.9 mg/dL (8.5-10.1) Test 10/18/18 11:07 Glucose (Fingerstick) 278 mg/dL (70-99) Review of Systems Review of Systems: co cough no co weakness Assessment and Plan Assessmemt and Plan Problems Medical Problems: (1) Acute bronchitis Status: Acute (2) Acute respiratory distress Status: Acute (3) CHF (congestive heart failure) Status: Chronic (4) Chronic anemia Status: Acute (5) CO2 retention Status: Acute (6) COPD exacerbation Status: Acute (7) HTN (hypertension) Status: Chronic (8) Hyperglycemia Status: Acute (9) Osteoarthritis Status: Chronic (10) Pneumonia Status: Acute (11) Respiratory failure with hypercapnia Status: Acute Assessment Acute Respiratory Distress COPD Bronchitis Pneumonia Arthroscopy Plan IV steroids BiPAP PRN IV Abx, Zosyn DuoNeb Appreciate pulm input DVT prophylaxis Home meds PT/OT Discussed with shelter case manager, plan is to discharge to home health when cleared by pulmonary Comment Review of Relevant I have reviewed the following items zaire (where applicable) has been applied. Medications: Current Medications Medications (Trade) Dose Ordered Sig/Elijah Route PRN Reason Start Time Stop Time Status Last Admin Dose Admin Lactobacillus Rhamnosus (Culturelle) 1 cap BID PO 10/17/18 21:00 10/18/18 08:05 Vancomycin HCl (Vanco Per Pharmacy) 1 each PRN DAILY PRN MC SEE COMMENTS 10/17/18 14:45 10/17/18 17:24 Vancomycin HCl 1.5 gm/Sodium Chloride 500 ml @ 250 mls/hr 1X ONCE IV 10/17/18 15:00 10/17/18 16:59 DC 10/17/18 17:03 Vancomycin HCl 1 gm/Sodium Chloride 250 ml @ 250 mls/hr Q12H IV 10/18/18 05:00 10/18/18 04:30 ANÍBAL BAUTISTA III DO Oct 18, 2018 13:22
[2018-10-18] MEDS: VANCOMYCIN PER PHARMACY MC PRN (14:54)
[2018-10-18 15:41] VITALS: BP 119/68
--- NOTE | 2018-10-18 17:05 | NUR ---
SS following up with discharge planning. Pt agreeable to [facility], ; fax [phone], at discharge. SS will continue to follow for discharge planning.
[2018-10-18 19:47] VITALS: BP 122/70
[2018-10-18] MEDS: BUDESONIDE 0.5 MG/2 ML NEBU. NEB SCH (20:04)
[2018-10-18 23:57] VITALS: BP 141/66
[2018-10-19 03:57] VITALS: BP 144/88
[2018-10-19 04:58] LABS: BLOOD UREA NITROGEN 21 mg/dL (8-26); CALCIUM 8.6 mg/dL (8.5-10.1); CARBON DIOXIDE 43 mmol/L (21-32); CHLORIDE 101 mmol/L (98-107); CREATININE 0.6 mg/dL (0.7-1.3); GFR 133.6; GLUCOSE 220 mg/dL (70-99); POTASSIUM 4.8 mmol/L (3.5-5.1); SODIUM 142 mmol/L (136-145); VANC TR 8.3 mcg/mL (10.0-20.0)
[2018-10-19] MEDS: VANCOMYCIN 1 GM in IV NORMAL SALINE 250ML 250 ML IV SCH ×3 (05:30→21:48)
[2018-10-19] MEDS: VANCOMYCIN PER PHARMACY MC PRN ×2 (05:52→12:21)
--- NOTE | 2018-10-19 05:52 | NUR ---
Pharmacy Vancomycin Dosing Note S:Consulted to monitor and dose vancomycin started 10/17/18. O:YOUNG PENNINGTON is a 68 year old M with Bacteremia Pneumonia . Height: 5 feet, 7 inches Weight: 68.084499 kg [place] Body Weight: 66.10 Adjusted Body Weight: 66.46 Dosing Weight: Actual Other Antibiotics: ZOSYN 3.375G IV Q6HRS LABS: Last BUN: 24 Last Creatinine: 0.5 Creatinine Clearance: 65 mL/min Last WBC: 5.2 Last Procalcitonin: - Tmax (past 24 hours): 98.6 Microbiology: 10/17 BCX GVR, GPC I/O: 1000/1 void Drug Levels: Last Trough level: 8.3 on 10/19/18 at 0500 Last dose given 10/18/18 at 0430 Vancomycin Dosing: Loading Dose: 1500 mg x1 Dosing Weight: Actual Target Trough: 15-20 A: Based on: TROUGH P: 1. Begin Vancomycin 1000 mg IV q8h 2. Follow up Trough level on 10/20/18 at 0530 3. Pharmacy will continue to monitor, follow and adjust therapy as needed. GRACIELA TALAVERA RPH, 10/19/18 0552 Signed: 10/19/18 at 0553 by GRACIELA TALAVERA RPH PHA
[2018-10-19 07:00] VITALS: BP 141/84
[2018-10-19] MEDS: IPRATRPIUM/ALBUTEROL 0.5/2.5MG 3 ML NEBU. NEB SCH ×4 (07:48→19:43)
[2018-10-19] MEDS: BUDESONIDE 0.5 MG/2 ML NEBU. NEB SCH ×2 (07:49→19:43)
[2018-10-19] MEDS: INSULIN LISPRO 300 UNITS/3 ML VIAL. SQ SCH ×3 (08:00→17:00)
[2018-10-19] MEDS: POTASSIUM CHLORIDE 10 MEQ TABLET.ER. PO SCH (08:26)
[2018-10-19] MEDS: GLIMEPIRIDE 2 MG TABLET. PO SCH (08:26)
[2018-10-19] MEDS: TAMSULOSIN 0.4 MG CAP.ER.24H. PO SCH (08:26)
[2018-10-19] MEDS: methylPREDNISolone SOD SUCC PF 40 MG/ML VIAL. IV SCH ×3 (08:26→21:47)
[2018-10-19] MEDS: LACTOBACILLUS RHAMNOSUS GG 1 CAPSULE. PO SCH ×2 (08:27→21:46)
[2018-10-19] MEDS: BENZONATATE 100 MG CAPSULE. PO SCH ×3 (08:27→21:46)
[2018-10-19] MEDS: FUROSEMIDE 20 MG TABLET PO SCH (08:27)
[2018-10-19] MEDS: PANTOPRAZOLE 40 MG TABLET.DR. PO SCH (08:27)
[2018-10-19] MEDS: GABAPENTIN 100 MG CAPSULE. PO SCH ×3 (08:27→21:46)
[2018-10-19] MEDS: SENNOSIDES 8.6 MG TABLET PO SCH ×2 (08:27→21:46)
[2018-10-19] MEDS: guaiFENesin DM 200MG/20MG 10 ML SYRUP PO SCH ×4 (08:28→21:46)
[2018-10-19] MEDS: PIPERACILLIN/TAZOBACTAM 3.375 GM in IV NORMAL SALINE 50ML 50 ML IV SCH ×4 (08:31→23:36)
[2018-10-19] MEDS: NICOTINE 14MG PATCH. TD SCH (09:00)
--- NOTE | 2018-10-19 09:02 | PDOC ---
Infectious Disease Note Subjective: Subjective pt says feels a little better still has cough and sob but improving very slowly has consipation no f/c/n/v/d ROS: ROS Negative otherwise. Vital Signs: Vital Signs Vital Signs Date Time Temp Pulse Resp B/P (MAP) Pulse Ox O2 Delivery O2 Flow Rate FiO2 10/19/18 07:52 100 Nasal Cannula 2.5 10/19/18 07:00 97.5 79 18 141/84 (103) 97.5 Physical Exam: PHYSICAL EXAM GENERAL: Alert, oriented, pleasant male in no acute distress, sitting upright in bed, cooperative and pleasant. HEENT: Normocephalic, atraumatic and anicteric. No thrush. Oral mucosa moist. NECK: Supple, no JVD. LUNGS: Decreased breath sound at bases. HEART: S1, S2. ABDOMEN: Soft, nontender and nondistended. Bowel sounds present. NEUROLOGIC: Alert and oriented x 3, grossly nonfocal. EXTREMITIES: No edema, no cyanosis. DERMATOLOGIC: Warm and dry. No generalized rash. Medications: Inpatient Meds: Current Medications Medications (Trade) Dose Ordered Sig/Elijah Start Time Stop Time Status Last Admin Dose Admin Al Hydroxide/Mg Hydroxide (Mylanta Plus Xs) 30 ml PRN Q6HRS PRN 10/15/18 17:00 10/18/18 12:24 30 ML Albuterol/ Ipratropium (Duoneb) 3 ml RTQID 10/15/18 20:00 10/19/18 07:49 3 ML Benzonatate (Tessalon Perle) 100 mg [id number] 10/15/18 21:00 10/19/18 08:28 100 MG Budesonide (Pulmicort) 0.5 mg RTBID 10/18/18 20:00 10/19/18 07:49 0.5 MG Ceftriaxone Sodium (Rocephin) 1 gm Q24H 10/16/18 16:00 Cancel Dextrose 250 ml PRN Q15MIN PRN 10/15/18 16:45 Dextrose (Dextrose 50%-Water Syringe) 12.5 gm PRN Q15MIN PRN 10/15/18 16:45 Fentanyl Citrate (Fentanyl 2ml Vial) 25 mcg PRN Q2HR PRN 10/15/18 16:45 Furosemide (Lasix) 20 mg DAILY 10/16/18 09:00 10/19/18 08:28 20 MG Gabapentin (Neurontin) 100 mg TID 10/15/18 21:00 10/19/18 08:28 100 MG Glimepiride (Amaryl) 2 mg DAILY 10/16/18 09:00 10/19/18 08:28 2 MG Guaifenesin (Robitussin Dm) 10 ml QID 10/15/18 17:00 10/19/18 08:28 10 ML Insulin Human Lispro (HumaLOG) 0-9 UNITS TIDWMEALS 10/15/18 17:00 10/18/18 17:32 4 UNITS Lactobacillus Rhamnosus (Culturelle) 1 cap BID 10/17/18 21:00 10/19/18 08:28 1 CAP Methylprednisolone Sodium Succinate (SOLU-Medrol 40MG VIAL) 40 mg Q8HRS 10/15/18 22:00 10/19/18 08:28 40 MG Methylprednisolone Sodium Succinate (SOLU-Medrol 125MG VIAL) 125 mg 1X ONCE 10/15/18 15:30 10/15/18 15:35 DC 10/15/18 16:03 125 MG Nicotine (Nicoderm Cq 14mg) 1 patch DAILY 10/16/18 13:00 10/18/18 08:05 1 PATCH Pantoprazole Sodium (Protonix) 40 mg STK-MED ONCE 10/15/18 22:28 10/15/18 22:28 DC Piperacillin Sod/ Tazobactam Sod (Zosyn Per Pharmacy) 1 each PRN DAILY PRN 10/16/18 13:15 Piperacillin Sod/ Tazobactam Sod 3.375 gm/Sodium Chloride 50 ml @ 100 mls/hr Q6H 10/16/18 14:00 10/19/18 08:32 100 MLS/HR Potassium Chloride (Klor-Con) 10 meq DAILY 10/16/18 09:00 10/19/18 08:28 10 MEQ Sennosides (Senna) 8.6 mg BID 10/15/18 21:00 10/19/18 08:28 8.6 MG Sodium Chloride 1,000 ml @ 125 mls/hr Q8H 10/15/18 16:25 10/16/18 09:58 DC 10/16/18 09:00 125 MLS/HR Tamsulosin HCl (Flomax) 0.4 mg DAILY 10/16/18 09:00 10/19/18 08:28 0.4 MG Temazepam (Restoril) 7.5 mg PRN QHS PRN 10/15/18 16:45 Tramadol HCl (Ultram) 50 mg PRN Q6HRS PRN 10/15/18 16:45 Vancomycin HCl (Vanco Per Pharmacy) 1 each PRN DAILY PRN 10/17/18 14:45 10/19/18 05:52 1 EACH Vancomycin HCl (Vancomycin Trough Level) 1 each 1X ONCE 10/20/18 05:30 10/20/18 05:31 Vancomycin HCl 1.5 gm/Sodium Chloride 500 ml @ 250 mls/hr 1X ONCE 10/17/18 15:00 10/17/18 16:59 DC 10/17/18 17:03 250 MLS/HR Vancomycin HCl 1 gm/Sodium Chloride 250 ml @ 250 mls/hr Q8HRS 10/19/18 06:00 10/19/18 05:30 250 MLS/HR Labs: Lab Laboratory Tests Test 10/18/18 11:07 10/18/18 16:55 10/18/18 20:23 10/19/18 04:20 Glucose (Fingerstick) 278 mg/dL (70-99) 156 mg/dL (70-99) 283 mg/dL (70-99) Sodium Level 142 mmol/L (136-145) Potassium Level 4.8 mmol/L (3.5-5.1) Chloride Level 101 mmol/L (98-107) Carbon Dioxide Level 43 mmol/L (21-32) Anion Gap (6-14) Blood Urea Nitrogen 21 mg/dL (8-26) Creatinine 0.6 mg/dL (0.7-1.3) Estimated GFR (Cockcroft-Gault) 133.6 Glucose Level 220 mg/dL (70-99) Calcium Level 8.6 mg/dL (8.5-10.1) Vancomycin Level Trough 8.3 mcg/mL (10.0-20.0) Vancomycin Last Dose Date Vancomycin Last Dose Time 1700 Test 10/19/18 07:00 Glucose (Fingerstick) 141 mg/dL (70-99) Micro RUN DATE: 10/17/18 PAGE 1 RUN TIME: 1350 [facility] [address] [place] [address] Estuardo Pulliam M.D., Telephone Operator Receptionist PATIENT: YOUNG PENNINGTON ACCT: [id number] LOC: [address] [place] [address] U: [id number] AGE/SX: 68/M ROOM: [facility]ly [facility], [facility] RE10/15/[address]: ALBERT MONTEZ MD : 1950 BED: 1 DIS: STATUS: ADM IN TLOC: SPEC #: [id number] RODRIGO: 10/16/18 STATUS: COMP REQ #: [id number] RECD: [id number]/16/[id number] [facility] DR: GAIL CASTRO MD SOURCE: BLOOD ENTR: 10/15/18153 [facility] DR: DUSTY RAGSDALE MD [facility]: ORDERED: BCULT Procedure Result BLOOD CULTURE Final GRAM POSITIVE COCCI IN CLUSTERS 2 SETS DRAWN, 1 OF 4 POSITIVE CALLED TO JENNIFER REYES RN IN 6S BY Shilpa ROOT,10/17/18,0815 SPECIMEN SENDING TO LAB [facility] FOR FURTHER WORK UP GRAM VARIABLE RODS IN AEROBIC CULTURE 2 SETS DRAWN, 1 OF 4 POSITIVE CALLED TO CINDY SANTANA RN IN 6S BY Shilpa ROOT,10/17/18,1345 SPECIMEN SENDING TO LAB [facility] FOR FURTHER WORK UP * This is a corrected result. * A prior result that was reported as final has been changed. Objective: Assessment: 1. Bacteremia, present on admission 03/05, 10/15/2018, GPC in clusters in 03/05 gram-variable silvano,possibly contaminant. ID and HERMILO still pending at this time. 2. Acute on chronic respiratory failure. 3. Chronic obstructive pulmonary disease. 4. History of congestive heart failure. 5. Hypertension. Plan: Plan of Care Continue empiric IV vancomycin and Zosyn. Follow up final ID and HERMILO of GPC in clusters in blood culture. Follow up labs,renal functions and cultures. Discussed with GRISELDA. ALLIE GIRALDO MD Oct 19, 2018 09:02
--- NOTE | 2018-10-19 09:45 | PDOC ---
PULMONARY PROGRESS NOTES Subjective used bipap overnight, sob better, has cough, no pain Vitals Vital Signs Date Time Temp Pulse Resp B/P (MAP) Pulse Ox O2 Delivery O2 Flow Rate FiO2 10/19/18 08:00 Nasal Cannula 3.0 10/19/18 07:52 100 10/19/18 07:00 97.5 79 18 141/84 (103) 97.5 ROS: No Nausea, No Chest Pain General: Alert, Oriented X4, No acute distress, Moderate Distress HEENT: Other Lungs: Wheezing (IMPROVED) Cardiovascular: S1, S2 Abdomen: Soft, Non-tender Neuro Exam: Alert Extremities: No Edema, Other Skin: Warm Labs Laboratory Tests Test 10/17/18 12:02 10/17/18 16:53 10/17/18 21:08 10/18/18 03:45 Glucose (Fingerstick) 252 mg/dL (70-99) 115 mg/dL (70-99) 220 mg/dL (70-99) Sodium Level 140 mmol/L (136-145) Potassium Level 4.5 mmol/L (3.5-5.1) Chloride Level 99 mmol/L (98-107) Carbon Dioxide Level 40 mmol/L (21-32) Anion Gap 1 (6-14) Blood Urea Nitrogen 24 mg/dL (8-26) Creatinine 0.5 mg/dL (0.7-1.3) Estimated GFR (Cockcroft-Gault) 164.9 Glucose Level 229 mg/dL (70-99) Calcium Level 8.9 mg/dL (8.5-10.1) Test 10/18/18 07:32 10/18/18 11:07 10/18/18 16:55 10/18/18 20:23 Glucose (Fingerstick) 141 mg/dL (70-99) 278 mg/dL (70-99) 156 mg/dL (70-99) 283 mg/dL (70-99) Test 10/19/18 04:20 10/19/18 07:00 Sodium Level 142 mmol/L (136-145) Potassium Level 4.8 mmol/L (3.5-5.1) Chloride Level 101 mmol/L (98-107) Carbon Dioxide Level 43 mmol/L (21-32) Anion Gap (6-14) Blood Urea Nitrogen 21 mg/dL (8-26) Creatinine 0.6 mg/dL (0.7-1.3) Estimated GFR (Cockcroft-Gault) 133.6 Glucose Level 220 mg/dL (70-99) Calcium Level 8.6 mg/dL (8.5-10.1) Vancomycin Level Trough 8.3 mcg/mL (10.0-20.0) Vancomycin Last Dose Date Vancomycin Last Dose Time 1700 Glucose (Fingerstick) 141 mg/dL (70-99) Laboratory Tests Test 10/18/18 11:07 10/18/18 16:55 10/18/18 20:23 10/19/18 04:20 Glucose (Fingerstick) 278 mg/dL (70-99) 156 mg/dL (70-99) 283 mg/dL (70-99) Sodium Level 142 mmol/L (136-145) Potassium Level 4.8 mmol/L (3.5-5.1) Chloride Level 101 mmol/L (98-107) Carbon Dioxide Level 43 mmol/L (21-32) Anion Gap (6-14) Blood Urea Nitrogen 21 mg/dL (8-26) Creatinine 0.6 mg/dL (0.7-1.3) Estimated GFR (Cockcroft-Gault) 133.6 Glucose Level 220 mg/dL (70-99) Calcium Level 8.6 mg/dL (8.5-10.1) Vancomycin Level Trough 8.3 mcg/mL (10.0-20.0) Vancomycin Last Dose Date Vancomycin Last Dose Time 1700 Test 10/19/18 07:00 Glucose (Fingerstick) 141 mg/dL (70-99) Medications Active Scripts Medications Dose Route/Sig Max Daily Dose Days Date Category Amaryl (Glimepiride) 2 Mg Tablet 2 Mg PO DAILY 09/21/18 Rx Lantus Solostar (Insulin Glargine,Hum.rec.anlog) 100 Unit/1 Ml Insuln.pen 20 Units SQ QHS 30 09/21/18 Rx Glucophage (Metformin Hcl) 500 Mg Tablet 500 Mg PO BIDWMEALS 09/21/18 Rx Guaifenesin Dm Syrup (Guaifenesin/Dextromethorphan) 5 Ml Syrup 10 Ml PO PRN Q6HRS PRN 7 09/21/18 Rx Proair Hfa (Albuterol Sulfate) 8.5 Gm Hfa.aer.ad 2.5 Mg NEB PRN Q4HRS PRN 30 09/21/18 Rx Tessalon Perle (Benzonatate) 100 Mg Capsule 100 Mg PO TID PRN 7 09/21/18 Rx Advair 500-50 Diskus (Fluticasone/Salmeterol) 1 Each Disk.w.dev 1 Puff IH BID 08/08/18 Rx Senna (Sennosides) 8.6 Mg Tablet 8.6 Mg PO BID 05/18/18 Reported Maalox Advanced Suspension (Mag Hydrox/Aluminum Hyd/Simeth) 355 Ml Oral.susp 355 Ml PO PRN Q6HRS PRN 05/18/18 Reported Duoneb 0.5-3(2.5) Mg/3 Ml (Albuterol/Ipratropium) 3 Ml Ampul.neb 3 Ml NEB RTQID MDD 1 05/10/18 Rx Protonix (Pantoprazole Sodium) 40 Mg Tablet.dr 40 Mg PO DAILY 11/18/15 Reported Potassium Chloride 10 Meq Capsule.er 10 Meq PO DAILY 11/18/15 Reported Lasix (Furosemide) 20 Mg Tablet 1 Tab PO DAILY 11/18/15 Reported Flomax (Tamsulosin Hcl) 0.4 Mg Cap.er.24h 1 Cap PO DAILY 10/11/15 Reported Metoprolol Tartrate 25 Mg Tablet 12.5 Mg PO BID 10/11/15 Reported Impression . 1. Acute on chronic respiratory failure secondary to acute exacerbation of chronic obstructive pulmonary disease, acute bronchitis 2. Acute exacerbation of chronic obstructive pulmonary disease. 3. Acute bronchitis. 4. Ex-smoker. 5. Congestive heart failure. Plan . 1. Titrate FiO2 to keep O2 saturation 90%. 2. Bronchodilator.with pulmicort 3. Solu-Medrol 4. Continue BiPAP p.r.n. during day, continuously at night. 5. We need to make sure his Trilogy machine is in working condition at home. need to consult sw 6. Continue not smoking. 7. lower extremity venous Doppler, neg. discussed w pt/ consider rehab PAULA HAYNES MD Oct 19, 2018 09:45
--- NOTE | 2018-10-19 10:08 | PDOC ---
[employer] PROGRESS NOTE Chief Complaint Chief Complaint Acute Respiratory Distress COPD Bronchitis Pneumonia Arthroscopy History of Present Illness History of Present Illness 10/19/18 Pt seen/examined at bedside, resting comfortably On O2 NC 2.0L today, had BiPAP treatment again last night, sating 89% Cough has improved 10/18/18 Pt seen/examined at bedside, resting comfortably On O2 NC, had BiPAP treatment last night, sating 98% Still coughing DW with home health care case manager 10/17/18 Resting with NAD On BiPAP with 45% FiO2, sating 91% 10/16/18 Pt seen/examined at bedside On BiPAP with 45% FiO2, sating 86% Vitals/I&O Vitals/I&O: Vital Signs Date Time Temp Pulse Resp B/P (MAP) Pulse Ox O2 Delivery O2 Flow Rate FiO2 10/19/18 08:00 Nasal Cannula 3.0 10/19/18 07:52 100 10/19/18 07:00 97.5 79 18 141/84 (103) 97.5 I & O 10/18/18 10/18/18 10/19/18 14:59 22:59 06:59 Intake Total 400 ml 400 ml 310 ml Output Total 250 ml Balance 400 ml 150 ml 310 ml Physical Exam Physical Exam: GENERAL: Alert, oriented, pleasant male in no acute distress, sitting upright in bed, cooperative and pleasant. HEENT: Normocephalic, atraumatic and anicteric. No thrush. Oral mucosa moist. NECK: Supple, no JVD. LUNGS: Decreased breath sound at bases. HEART: S1, S2. ABDOMEN: Soft, nontender and nondistended. Bowel sounds present. NEUROLOGIC: Alert and oriented x 3, grossly nonfocal. EXTREMITIES: No edema, no cyanosis. DERMATOLOGIC: Warm and dry. No generalized rash. General: Alert, Oriented X3, Cooperative, No acute distress, Other (on bipap) Heart: Regular rate, Normal S1, Normal S2 Lungs: Wheezing (IMPROVED) Abdomen: Normal bowel sounds, Soft, No tenderness Extremities: No clubbing Skin: No rashes, No breakdown, No significant lesion Labs Labs: Laboratory Tests Test 10/18/18 11:07 10/18/18 16:55 10/18/18 20:23 10/19/18 04:20 Glucose (Fingerstick) 278 mg/dL (70-99) 156 mg/dL (70-99) 283 mg/dL (70-99) Sodium Level 142 mmol/L (136-145) Potassium Level 4.8 mmol/L (3.5-5.1) Chloride Level 101 mmol/L (98-107) Carbon Dioxide Level 43 mmol/L (21-32) Anion Gap (6-14) Blood Urea Nitrogen 21 mg/dL (8-26) Creatinine 0.6 mg/dL (0.7-1.3) Estimated GFR (Cockcroft-Gault) 133.6 Glucose Level 220 mg/dL (70-99) Calcium Level 8.6 mg/dL (8.5-10.1) Vancomycin Level Trough 8.3 mcg/mL (10.0-20.0) Vancomycin Last Dose Date Vancomycin Last Dose Time 1700 Test 10/19/18 07:00 Glucose (Fingerstick) 141 mg/dL (70-99) Review of Systems Review of Systems: co cough no co chest pain Assessment and Plan Assessmemt and Plan Problems Medical Problems: (1) Acute bronchitis Status: Acute (2) Acute respiratory distress Status: Acute (3) CHF (congestive heart failure) Status: Chronic (4) Chronic anemia Status: Acute (5) CO2 retention Status: Acute (6) COPD exacerbation Status: Acute (7) HTN (hypertension) Status: Chronic (8) Hyperglycemia Status: Acute (9) Osteoarthritis Status: Chronic (10) Pneumonia Status: Acute (11) Respiratory failure with hypercapnia Status: Acute Assessment Acute Respiratory Distress COPD Bronchitis Pneumonia Arthroscopy Plan IV steroids BiPAP PRN IV Abx, Zosyn, Vancomycin DuoNeb O2 NC DVT prophylaxis Home meds PT/OT Plan is to discharge to home health when cleared by pulmonary Comment Review of Relevant I have reviewed the following items zaire (where applicable) has been applied. Medications: Current Medications Medications (Trade) Dose Ordered Sig/Elijah Route PRN Reason Start Time Stop Time Status Last Admin Dose Admin Vancomycin HCl (Vancomycin Trough Level) 1 each 1X ONCE MC 10/19/18 04:30 10/19/18 04:31 DC 10/19/18 05:30 Budesonide (Pulmicort) 0.5 mg RTBID NEB 10/18/18 20:00 10/19/18 07:49 Vancomycin HCl 1 gm/Sodium Chloride 250 ml @ 250 mls/hr Q8HRS IV 10/19/18 06:00 10/19/18 05:30 ANÍBAL BAUTISTA III DO Oct 19, 2018 10:08
[2018-10-19 11:00] VITALS: BP 123/77
[2018-10-19 15:00] VITALS: BP 139/64
[2018-10-19 19:34] VITALS: BP 142/58
[2018-10-19] MEDS: MAG HYDROX/ALUMINUM HYD/SIMETH 30 ML ORAL.SUSP PO PRN (21:47)
[2018-10-19 23:46] VITALS: BP 136/72
[2018-10-20 03:42] VITALS: BP 140/70
[2018-10-20] MEDS: methylPREDNISolone SOD SUCC PF 40 MG/ML VIAL. IV SCH ×2 (05:07→21:21)
[2018-10-20] MEDS: PIPERACILLIN/TAZOBACTAM 3.375 GM in IV NORMAL SALINE 50ML 50 ML IV SCH ×3 (05:07→17:57)
[2018-10-20 06:18] LABS: BLOOD UREA NITROGEN 25 mg/dL (8-26); CALCIUM 8.7 mg/dL (8.5-10.1); CARBON DIOXIDE 45 mmol/L (21-32); CHLORIDE 101 mmol/L (98-107); CREATININE 0.6 mg/dL (0.7-1.3); GFR 133.6; GLUCOSE 187 mg/dL (70-99); POTASSIUM 4.7 mmol/L (3.5-5.1); SODIUM 143 mmol/L (136-145); VANC TR 13.8 mcg/mL (10.0-20.0)
[2018-10-20] MEDS: VANCOMYCIN PER PHARMACY MC PRN (06:26)
--- NOTE | 2018-10-20 06:26 | NUR ---
Pharmacy Vancomycin Dosing Note S:Consulted to monitor and dose vancomycin started 10/17/18. O:YOUNG PENNINGTON is a 68 year old M with Bacteremia Pneumonia . Height: 5 feet, 7 inches Weight: 69.377794 kg [place] Body Weight: 66.10 Adjusted Body Weight: 67.26 Dosing Weight: Actual Other Antibiotics: ZOSYN 3.375G IV Q6HRS LABS: Last BUN: 21 Last Creatinine: 0.6 Creatinine Clearance: 65 mL/min Last WBC: 5.2 Last Procalcitonin: - Tmax (past 24 hours): 98.4 (TMIN 97.3) Microbiology: 10/17 BCX GVR, GPC 1 OF 4 POSITIVE I/O: 1110/250 + 5 VOIDS Drug Levels: Last Trough level: 13.8 on 10/20/18 at 0530 Last dose given 10/18/18 at 0430 Vancomycin Dosing: Loading Dose: 1500 mg x1 Dosing Weight: Actual Target Trough: 15-20 A: Based on: TROUGH AND PT CONDITION P: 1. Continue Vancomycin 1000 mg IV q8h 2. Follow up Trough level IF NEEDED 3. Pharmacy will continue to monitor, follow and adjust therapy as needed. GRACIELA TALAVERA RPH, 10/20/18625 Signed: 10/20/18 at 625 by GRACIELA TALAVERA RPH PHA
[2018-10-20] MEDS: VANCOMYCIN 1 GM in IV NORMAL SALINE 250ML 250 ML IV SCH ×3 (06:27→21:21)
[2018-10-20] MEDS: BUDESONIDE 0.5 MG/2 ML NEBU. NEB SCH ×2 (07:08→20:08)
[2018-10-20] MEDS: IPRATRPIUM/ALBUTEROL 0.5/2.5MG 3 ML NEBU. NEB SCH ×4 (07:08→20:08)
[2018-10-20 07:30] VITALS: BP 131/83
[2018-10-20] MEDS: INSULIN LISPRO 300 UNITS/3 ML VIAL. SQ SCH ×3 (08:00→17:00)
[2018-10-20] MEDS: GLIMEPIRIDE 2 MG TABLET. PO SCH (08:46)
[2018-10-20] MEDS: LACTOBACILLUS RHAMNOSUS GG 1 CAPSULE. PO SCH ×2 (08:46→21:21)
[2018-10-20] MEDS: guaiFENesin DM 200MG/20MG 10 ML SYRUP PO SCH ×4 (08:46→21:22)
[2018-10-20] MEDS: GABAPENTIN 100 MG CAPSULE. PO SCH ×3 (08:46→21:21)
[2018-10-20] MEDS: TAMSULOSIN 0.4 MG CAP.ER.24H. PO SCH (08:47)
[2018-10-20] MEDS: SENNOSIDES 8.6 MG TABLET PO SCH ×2 (08:47→21:21)
[2018-10-20] MEDS: PANTOPRAZOLE 40 MG TABLET.DR. PO SCH (08:47)
[2018-10-20] MEDS: POTASSIUM CHLORIDE 10 MEQ TABLET.ER. PO SCH (08:47)
[2018-10-20] MEDS: BENZONATATE 100 MG CAPSULE. PO SCH ×3 (08:48→21:21)
[2018-10-20] MEDS: NICOTINE 14MG PATCH. TD SCH (08:49)
[2018-10-20] MEDS: FUROSEMIDE 20 MG TABLET PO SCH (08:53)
[2018-10-20] MEDS: MAG HYDROX/ALUMINUM HYD/SIMETH 30 ML ORAL.SUSP PO PRN ×2 (08:59→18:01)
--- NOTE | 2018-10-20 09:31 | PDOC ---
PULMONARY PROGRESS NOTES Subjective using bipap overnight, sob better, has cough, no pain Vitals Vital Signs Date Time Temp Pulse Resp B/P (MAP) Pulse Ox O2 Delivery O2 Flow Rate FiO2 10/20/18 07:30 98.1 81 22 131/83 (99) 99 Nasal Cannula 2.5 98.1 ROS: No Nausea, No Chest Pain General: Alert, Oriented X4, No acute distress, Moderate Distress HEENT: Other Lungs: Wheezing (IMPROVED) Cardiovascular: S1, S2 Abdomen: Soft, Non-tender Neuro Exam: Alert Extremities: No Edema, Other Skin: Warm Labs Laboratory Tests Test 10/18/18 11:07 10/18/18 16:55 10/18/18 20:23 10/19/18 04:20 Glucose (Fingerstick) 278 mg/dL (70-99) 156 mg/dL (70-99) 283 mg/dL (70-99) Sodium Level 142 mmol/L (136-145) Potassium Level 4.8 mmol/L (3.5-5.1) Chloride Level 101 mmol/L (98-107) Carbon Dioxide Level 43 mmol/L (21-32) Anion Gap (6-14) Blood Urea Nitrogen 21 mg/dL (8-26) Creatinine 0.6 mg/dL (0.7-1.3) Estimated GFR (Cockcroft-Gault) 133.6 Glucose Level 220 mg/dL (70-99) Calcium Level 8.6 mg/dL (8.5-10.1) Vancomycin Level Trough 8.3 mcg/mL (10.0-20.0) Vancomycin Last Dose Date Vancomycin Last Dose Time 1700 Test 10/19/18 07:00 10/19/18 11:30 10/19/18 16:48 10/19/18 18:59 Glucose (Fingerstick) 141 mg/dL (70-99) 333 mg/dL (70-99) 160 mg/dL (70-99) 295 mg/dL (70-99) Test 10/20/18 05:45 10/20/18 07:05 Sodium Level 143 mmol/L (136-145) Potassium Level 4.7 mmol/L (3.5-5.1) Chloride Level 101 mmol/L (98-107) Carbon Dioxide Level 45 mmol/L (21-32) Anion Gap (6-14) Blood Urea Nitrogen 25 mg/dL (8-26) Creatinine 0.6 mg/dL (0.7-1.3) Estimated GFR (Cockcroft-Gault) 133.6 Glucose Level 187 mg/dL (70-99) Calcium Level 8.7 mg/dL (8.5-10.1) Vancomycin Level Trough 13.8 mcg/mL (10.0-20.0) Vancomycin Last Dose Date 10/19/18 Vancomycin Last Dose Time 2200 Glucose (Fingerstick) 150 mg/dL (70-99) Laboratory Tests Test 10/19/18 11:30 10/19/18 16:48 10/19/18 18:59 10/20/18 05:45 Glucose (Fingerstick) 333 mg/dL (70-99) 160 mg/dL (70-99) 295 mg/dL (70-99) Sodium Level 143 mmol/L (136-145) Potassium Level 4.7 mmol/L (3.5-5.1) Chloride Level 101 mmol/L (98-107) Carbon Dioxide Level 45 mmol/L (21-32) Anion Gap (6-14) Blood Urea Nitrogen 25 mg/dL (8-26) Creatinine 0.6 mg/dL (0.7-1.3) Estimated GFR (Cockcroft-Gault) 133.6 Glucose Level 187 mg/dL (70-99) Calcium Level 8.7 mg/dL (8.5-10.1) Vancomycin Level Trough 13.8 mcg/mL (10.0-20.0) Vancomycin Last Dose Date 10/19/18 Vancomycin Last Dose Time 2199 Test 10/20/18 07:05 Glucose (Fingerstick) 150 mg/dL (70-99) Medications Active Scripts Medications Dose Route/Sig Max Daily Dose Days Date Category Amaryl (Glimepiride) 2 Mg Tablet 2 Mg PO DAILY 09/21/18 Rx Lantus Solostar (Insulin Glargine,Hum.rec.anlog) 100 Unit/1 Ml Insuln.pen 20 Units SQ QHS 30 09/21/18 Rx Glucophage (Metformin Hcl) 500 Mg Tablet 500 Mg PO BIDWMEALS 09/21/18 Rx Guaifenesin Dm Syrup (Guaifenesin/Dextromethorphan) 5 Ml Syrup 10 Ml PO PRN Q6HRS PRN 7 09/21/18 Rx Proair Hfa (Albuterol Sulfate) 8.5 Gm Hfa.aer.ad 2.5 Mg NEB PRN Q4HRS PRN 30 09/21/18 Rx Tessalon Perle (Benzonatate) 100 Mg Capsule 100 Mg PO TID PRN 7 09/21/18 Rx Advair 500-50 Diskus (Fluticasone/Salmeterol) 1 Each Disk.w.dev 1 Puff IH BID 08/08/18 Rx Senna (Sennosides) 8.6 Mg Tablet 8.6 Mg PO BID 05/18/18 Reported Maalox Advanced Suspension (Mag Hydrox/Aluminum Hyd/Simeth) 355 Ml Oral.susp 355 Ml PO PRN Q6HRS PRN 05/18/18 Reported Duoneb 0.5-3(2.5) Mg/3 Ml (Albuterol/Ipratropium) 3 Ml Ampul.neb 3 Ml NEB RTQID MDD 1 05/10/18 Rx Protonix (Pantoprazole Sodium) 40 Mg Tablet.dr 40 Mg PO DAILY 11/18/15 Reported Potassium Chloride 10 Meq Capsule.er 10 Meq PO DAILY 11/18/15 Reported Lasix (Furosemide) 20 Mg Tablet 1 Tab PO DAILY 11/18/15 Reported Flomax (Tamsulosin Hcl) 0.4 Mg Cap.er.24h 1 Cap PO DAILY 10/11/15 Reported Metoprolol Tartrate 25 Mg Tablet 12.5 Mg PO BID 10/11/15 Reported Impression . 1. Acute on chronic respiratory failure secondary to acute exacerbation of chronic obstructive pulmonary disease, acute bronchitis 2. Acute exacerbation of chronic obstructive pulmonary disease. 3. Acute bronchitis. 4. Ex-smoker. 5. Congestive heart failure. Plan . 1. Titrate FiO2 to keep O2 saturation 90%. 2. Bronchodilator.with pulmicort 3. Solu-Medrol with taper 4. Continue BiPAP p.r.n. during day, continuously at night. 5. We need to make sure his Trilogy machine is in working condition at home. d/w RN and executive secretary social welfare. Message left for [place] 6. Continue not smoking. 7. lower extremity venous Doppler, neg. discussed w pt/ consider rehab PAULA HAYNES MD Oct 20, 2018 09:31
--- NOTE | 2018-10-20 10:20 | PDOC ---
Infectious Disease Note Subjective: Subjective pt says feels better still has cough and sob ,improving slowly no f/c/n/v/d ROS: ROS Negative otherwise. Vital Signs: Vital Signs Vital Signs Date Time Temp Pulse Resp B/P (MAP) Pulse Ox O2 Delivery O2 Flow Rate FiO2 10/20/18 08:00 Nasal Cannula 2.5 10/20/18 07:30 98.1 81 22 131/83 (99) 99 98.1 Physical Exam: PHYSICAL EXAM GENERAL: Alert, oriented, pleasant male in no acute distress, sitting upright in bed, cooperative and pleasant. HEENT: Normocephalic, atraumatic and anicteric. No thrush. Oral mucosa moist. NECK: Supple, no JVD. LUNGS: Decreased breath sound at bases. HEART: S1, S2. ABDOMEN: Soft, nontender and nondistended. Bowel sounds present. NEUROLOGIC: Alert and oriented x 3, grossly nonfocal. EXTREMITIES: No edema, no cyanosis. DERMATOLOGIC: Warm and dry. No generalized rash. Medications: Inpatient Meds: Current Medications Medications (Trade) Dose Ordered Sig/Elijah Start Time Stop Time Status Last Admin Dose Admin Al Hydroxide/Mg Hydroxide (Mylanta Plus Xs) 30 ml PRN Q6HRS PRN 10/15/18 17:00 10/20/18 08:59 30 ML Albuterol/ Ipratropium (Duoneb) 3 ml RTQID 10/15/18 20:00 10/20/18 07:08 3 ML Benzonatate (Tessalon Perle) 100 mg [id number] 10/15/18 21:00 10/20/18 08:49 100 MG Budesonide (Pulmicort) 0.5 mg RTBID 10/18/18 20:00 10/20/18 07:08 0.5 MG Ceftriaxone Sodium (Rocephin) 1 gm Q24H 10/16/18 16:00 Cancel Dextrose 250 ml PRN Q15MIN PRN 10/15/18 16:45 Dextrose (Dextrose 50%-Water Syringe) 12.5 gm PRN Q15MIN PRN 10/15/18 16:45 Fentanyl Citrate (Fentanyl 2ml Vial) 25 mcg PRN Q2HR PRN 10/15/18 16:45 Furosemide (Lasix) 20 mg DAILY 10/16/18 09:00 10/20/18 08:53 20 MG Gabapentin (Neurontin) 100 mg TID 10/15/18 21:00 10/20/18 08:49 100 MG Glimepiride (Amaryl) 2 mg DAILY 10/16/18 09:00 10/20/18 08:49 2 MG Guaifenesin (Robitussin Dm) 10 ml QID 10/15/18 17:00 10/20/18 08:49 10 ML Insulin Human Lispro (HumaLOG) 0-9 UNITS TIDWMEALS 10/15/18 17:00 10/19/18 17:49 43 UNITS Lactobacillus Rhamnosus (Culturelle) 1 cap BID 10/17/18 21:00 10/20/18 08:49 1 CAP Methylprednisolone Sodium Succinate (SOLU-Medrol 40MG VIAL) 40 mg BID 10/20/18 21:00 Methylprednisolone Sodium Succinate (SOLU-Medrol 125MG VIAL) 125 mg 1X ONCE 10/15/18 15:30 10/15/18 15:35 DC 10/15/18 16:03 125 MG Nicotine (Nicoderm Cq 14mg) 1 patch DAILY 10/16/18 13:00 10/20/18 08:49 1 PATCH Pantoprazole Sodium (Protonix) 40 mg STK-MED ONCE 10/15/18 22:28 10/15/18 22:28 DC Piperacillin Sod/ Tazobactam Sod (Zosyn Per Pharmacy) 1 each PRN DAILY PRN 10/16/18 13:15 Piperacillin Sod/ Tazobactam Sod 3.375 gm/Sodium Chloride 50 ml @ 100 mls/hr Q6H 10/16/18 14:00 10/20/18 05:07 100 MLS/HR Potassium Chloride (Klor-Con) 10 meq DAILY 10/16/18 09:00 10/20/18 08:49 10 MEQ Sennosides (Senna) 8.6 mg BID 10/15/18 21:00 10/20/18 08:49 8.6 MG Sodium Chloride 1,000 ml @ 125 mls/hr Q8H 10/15/18 16:25 10/16/18 09:58 DC 10/16/18 09:00 125 MLS/HR Tamsulosin HCl (Flomax) 0.4 mg DAILY 10/16/18 09:00 10/20/18 08:49 0.4 MG Temazepam (Restoril) 7.5 mg PRN QHS PRN 10/15/18 16:45 Tramadol HCl (Ultram) 50 mg PRN Q6HRS PRN 10/15/18 16:45 Vancomycin HCl (Vanco Per Pharmacy) 1 each PRN DAILY PRN 10/17/18 14:45 10/20/18 06:26 1 EACH Vancomycin HCl (Vancomycin Trough Level) 1 each 1X ONCE 10/20/18 05:30 10/20/18 05:31 DC 10/20/18 06:27 1 EACH Vancomycin HCl 1.5 gm/Sodium Chloride 500 ml @ 250 mls/hr 1X ONCE 10/17/18 15:00 10/17/18 16:59 DC 10/17/18 17:03 250 MLS/HR Vancomycin HCl 1 gm/Sodium Chloride 250 ml @ 250 mls/hr Q8HRS 10/19/18 06:00 10/20/18 06:27 250 MLS/HR Labs: Lab Laboratory Tests Test 10/19/18 11:30 10/19/18 16:48 10/19/18 18:59 10/20/18 05:45 Glucose (Fingerstick) 333 mg/dL (70-99) 160 mg/dL (70-99) 295 mg/dL (70-99) Sodium Level 143 mmol/L (136-145) Potassium Level 4.7 mmol/L (3.5-5.1) Chloride Level 101 mmol/L (98-107) Carbon Dioxide Level 45 mmol/L (21-32) Anion Gap (6-14) Blood Urea Nitrogen 25 mg/dL (8-26) Creatinine 0.6 mg/dL (0.7-1.3) Estimated GFR (Cockcroft-Gault) 133.6 Glucose Level 187 mg/dL (70-99) Calcium Level 8.7 mg/dL (8.5-10.1) Vancomycin Level Trough 13.8 mcg/mL (10.0-20.0) Vancomycin Last Dose Date 10/19/18 Vancomycin Last Dose Time 2200 Test 10/20/18 07:05 Glucose (Fingerstick) 150 mg/dL (70-99) Micro RUN DATE: 10/17/18 PAGE 1 RUN TIME: 1350 [facility] [address] [place] [address] Estuardo Pulliam M.D., Steel Plate Printer PATIENT: YOUNG PENNINGTON ACCT: [id number] LOC: [address] [place] [address] U: [id number] AGE/SX: 68/M ROOM: [facility] RE10/15/[address]: ALBERT MONTEZ MD : 1950 BED: 1 DIS: STATUS: ADM IN TLOC: SPEC #: [id number] RODRIGO: 10/16/18 STATUS: COMP REQ #: [id number] RECD: [id number] SUBM DR: GAIL CASTRO MD SOURCE: BLOOD ENTR: 10/15/18-[address] [facility] [address]: DUSTY RAGSDALE MD [facility]: ORDERED: BCULT Procedure Result BLOOD CULTURE Final GRAM POSITIVE COCCI IN CLUSTERS 2 SETS DRAWN, 1 OF 4 POSITIVE CALLED TO JENNIFER REYES RN IN 6S BY Shilpa ROOT,10/17/18,0815 SPECIMEN SENDING TO [facility] FOR FURTHER WORK UP GRAM VARIABLE RODS IN AEROBIC CULTURE 2 SETS DRAWN, 1 OF 4 POSITIVE CALLED TO CINDY SANTANA RN IN 6S BY Shilpa ROOT,10/17/18,1345 SPECIMEN SENDING TO [facility] FOR FURTHER WORK UP * This is a corrected result. * A prior result that was reported as final has been changed. Objective: Assessment: 1. Bacteremia, present on admission 03/05, 10/15/2018, GPC in clusters in 03/05 ID PENDING gram-variable silvano,bacillus likely contaminant. 2. Acute on chronic respiratory failure. 3. Chronic obstructive pulmonary disease. 4. History of congestive heart failure. 5. Hypertension. Plan: Plan of Care Continue empiric IV vancomycin and Zosyn. Follow up final ID and HERMILO of GPC in clusters in blood culture. Follow up labs,renal functions Discussed with RN. ALLIE GIRALDO MD Oct 20, 2018 10:20
--- NOTE | 2018-10-20 10:29 | NUR ---
NETTIE following pt. Spoke with Dr. Hunt as pt reports his Bipap at home is still not working. NETTIE phoned pt's face sheet to [employer] and left a message for Joao to see if pt is eligible for a new one or if they can fix his current Bipap. Will continue to follow.
[2018-10-20 11:03] VITALS: BP 135/80
--- NOTE | 2018-10-20 13:23 | PDOC ---
[employer] PROGRESS NOTE Chief Complaint Chief Complaint Acute Respiratory Distress COPD Bronchitis Pneumonia Arthroscopy History of Present Illness History of Present Illness 10/20/18 Pt seen and examined at bedside, smiling Pt currently on BiAP, 40& FiO2, Sat 98% 10/19/18 Pt seen/examined at bedside, resting comfortably On O2 NC 2.0L today, had BiPAP treatment again last night, sating 89% Cough has improved 10/18/18 Pt seen/examined at bedside, resting comfortably On O2 NC, had BiPAP treatment last night, sating 98% Still coughing DW with correctional case manager 10/17/18 Resting with NAD On BiPAP with 45% FiO2, sating 91% 10/16/18 Pt seen/examined at bedside On BiPAP with 45% FiO2, sating 86% Vitals/I&O Vitals/I&O: Vital Signs Date Time Temp Pulse Resp B/P (MAP) Pulse Ox O2 Delivery O2 Flow Rate FiO2 10/20/18 11:11 99 BiPAP/CPAP 10/20/18 11:03 97.1 78 20 135/80 (98) 2.5 97.1 I & O 10/19/18 10/19/18 10/20/18 15:00 23:00 07:00 Intake Total 600 ml 250 ml Output Total 800 ml Balance -800 ml 600 ml 250 ml Physical Exam Physical Exam: GENERAL: Alert, oriented, pleasant male in no acute distress, sitting upright in bed, cooperative and pleasant. HEENT: Normocephalic, atraumatic and anicteric. No thrush. Oral mucosa moist. NECK: Supple, no JVD. LUNGS: Decreased breath sound at bases. HEART: S1, S2. ABDOMEN: Soft, nontender and nondistended. Bowel sounds present. NEUROLOGIC: Alert and oriented x 3, grossly nonfocal. EXTREMITIES: No edema, no cyanosis. DERMATOLOGIC: Warm and dry. No generalized rash. General: Alert, Oriented X3, Cooperative, No acute distress, Other (on bipap) Heart: Regular rate, Normal S1, Normal S2 Lungs: Wheezing (IMPROVED), Other (diminished breath sounds ) Abdomen: Normal bowel sounds, Soft, No tenderness Extremities: No clubbing Skin: No rashes, No breakdown, No significant lesion Labs Labs: Laboratory Tests Test 10/19/18 16:48 10/19/18 18:59 10/20/18 05:45 10/20/18 07:05 Glucose (Fingerstick) 160 mg/dL (70-99) 295 mg/dL (70-99) 150 mg/dL (70-99) Sodium Level 143 mmol/L (136-145) Potassium Level 4.7 mmol/L (3.5-5.1) Chloride Level 101 mmol/L (98-107) Carbon Dioxide Level 45 mmol/L (21-32) Anion Gap (6-14) Blood Urea Nitrogen 25 mg/dL (8-26) Creatinine 0.6 mg/dL (0.7-1.3) Estimated GFR (Cockcroft-Gault) 133.6 Glucose Level 187 mg/dL (70-99) Calcium Level 8.7 mg/dL (8.5-10.1) Vancomycin Level Trough 13.8 mcg/mL (10.0-20.0) Vancomycin Last Dose Date 10/19/18 Vancomycin Last Dose Time 2200 Test 10/20/18 11:22 Glucose (Fingerstick) 289 mg/dL (70-99) Review of Systems Review of Systems: denies headache denies vision change Assessment and Plan Assessmemt and Plan Problems Medical Problems: (1) Acute bronchitis Status: Acute (2) Acute respiratory distress Status: Acute (3) CHF (congestive heart failure) Status: Chronic (4) Chronic anemia Status: Acute (5) CO2 retention Status: Acute (6) COPD exacerbation Status: Acute (7) HTN (hypertension) Status: Chronic (8) Hyperglycemia Status: Acute (9) Osteoarthritis Status: Chronic (10) Pneumonia Status: Acute (11) Respiratory failure with hypercapnia Status: Acute Assessment Acute Respiratory Distress COPD Bronchitis Pneumonia Arthroscopy Plan IV steroids BiPAP PRN IV Abx, Zosyn, Vancomycin O2 NC DuoNeb PT/OT DVT prophylaxis Home meds Plan is to discharge to home health when cleared by pulmonary Comment Review of Relevant I have reviewed the following items zaire (where applicable) has been applied. Medications: Current Medications Medications (Trade) Dose Ordered Sig/Elijah Route PRN Reason Start Time Stop Time Status Last Admin Dose Admin Vancomycin HCl (Vancomycin Trough Level) 1 each 1X ONCE MC 10/20/18 05:30 10/20/18 05:31 DC 10/20/18 06:27 ANÍBAL BAUTISTA III DO Oct 20, 2018 13:23
[2018-10-20 15:12] VITALS: BP 143/74
[2018-10-20 19:54] VITALS: BP 133/71
[2018-10-20] MEDS ORDERED: ALBUTEROL SULFATE 2.5 MG/3 ML NEBU. NEB PRN (22:45)
[2018-10-20 23:10] VITALS: BP 122/79
[2018-10-21] MEDS: PIPERACILLIN/TAZOBACTAM 3.375 GM in IV NORMAL SALINE 50ML 50 ML IV SCH ×3 (00:48→12:00)
[2018-10-21 03:32] VITALS: BP 137/77
[2018-10-21 05:41] LABS: BLOOD UREA NITROGEN 23 mg/dL (8-26); CALCIUM 8.8 mg/dL (8.5-10.1); CARBON DIOXIDE 43 mmol/L (21-32); CHLORIDE 97 mmol/L (98-107); CREATININE 0.6 mg/dL (0.7-1.3); GFR 133.6; GLUCOSE 232 mg/dL (70-99); POTASSIUM 5.1 mmol/L (3.5-5.1); SODIUM 138 mmol/L (136-145)
[2018-10-21] MEDS: BUDESONIDE 0.5 MG/2 ML NEBU. NEB SCH (07:06)
[2018-10-21] MEDS: IPRATRPIUM/ALBUTEROL 0.5/2.5MG 3 ML NEBU. NEB SCH ×3 (07:06→15:11)
[2018-10-21 07:30] VITALS: BP 137/60
--- NOTE | 2018-10-21 08:42 | PDOC ---
Infectious Disease Note Subjective: Subjective pt says feels better still has cough and sob ,improving slowly no f/c/n/v/d ROS: ROS Negative otherwise. Vital Signs: Vital Signs Vital Signs Date Time Temp Pulse Resp B/P (MAP) Pulse Ox O2 Delivery O2 Flow Rate FiO2 10/21/18 07:30 98.3 82 20 137/60 (85) 96 BiPAP/CPAP 98.3 10/21/18 07:08 2.0 Physical Exam: PHYSICAL EXAM GENERAL: Alert, oriented, pleasant male in no acute distress, sitting upright in bed, cooperative and pleasant. HEENT: Normocephalic, atraumatic and anicteric. No thrush. Oral mucosa moist. NECK: Supple, no JVD. LUNGS: Decreased breath sound at bases. HEART: S1, S2. ABDOMEN: Soft, nontender and nondistended. Bowel sounds present. NEUROLOGIC: Alert and oriented x 3, grossly nonfocal. EXTREMITIES: No edema, no cyanosis. DERMATOLOGIC: Warm and dry. No generalized rash. Medications: Inpatient Meds: Current Medications Medications (Trade) Dose Ordered Sig/Elijah Start Time Stop Time Status Last Admin Dose Admin Al Hydroxide/Mg Hydroxide (Mylanta Plus Xs) 30 ml PRN Q6HRS PRN 10/15/18 17:00 10/20/18 18:01 30 ML Albuterol Sulfate (Ventolin Neb Soln) 2.5 mg PRN Q4HRS PRN 10/20/18 22:45 10/20/18 22:57 2.5 MG Albuterol/ Ipratropium (Duoneb) 3 ml RTQID 10/15/18 20:00 10/21/18 07:07 3 ML Benzonatate (Tessalon Perle) 100 mg [id number] 10/15/18 21:00 10/20/18 21:29 100 MG Budesonide (Pulmicort) 0.5 mg RTBID 10/18/18 20:00 10/21/18 07:07 0.5 MG Ceftriaxone Sodium (Rocephin) 1 gm Q24H 10/16/18 16:00 Cancel Dextrose 250 ml PRN Q15MIN PRN 10/15/18 16:45 Dextrose (Dextrose 50%-Water Syringe) 12.5 gm PRN Q15MIN PRN 10/15/18 16:45 Fentanyl Citrate (Fentanyl 2ml Vial) 25 mcg PRN Q2HR PRN 10/15/18 16:45 Furosemide (Lasix) 20 mg DAILY 10/16/18 09:00 10/20/18 08:53 20 MG Gabapentin (Neurontin) 100 mg TID 10/15/18 21:00 10/20/18 21:29 100 MG Glimepiride (Amaryl) 2 mg DAILY 10/16/18 09:00 10/20/18 08:49 2 MG Guaifenesin (Robitussin Dm) 10 ml QID 10/15/18 17:00 10/20/18 21:29 10 ML Insulin Human Lispro (HumaLOG) 0-9 UNITS TIDWMEALS 10/15/18 17:00 10/20/18 12:39 7 UNITS Lactobacillus Rhamnosus (Culturelle) 1 cap BID 10/17/18 21:00 10/20/18 21:29 1 CAP Methylprednisolone Sodium Succinate (SOLU-Medrol 40MG VIAL) 40 mg BID 10/20/18 21:00 10/20/18 21:29 40 MG Methylprednisolone Sodium Succinate (SOLU-Medrol 125MG VIAL) 125 mg 1X ONCE 10/15/18 15:30 10/15/18 15:35 DC 10/15/18 16:03 125 MG Nicotine (Nicoderm Cq 14mg) 1 patch DAILY 10/16/18 13:00 10/20/18 08:49 1 PATCH Pantoprazole Sodium (Protonix) 40 mg STK-MED ONCE 10/15/18 22:28 10/15/18 22:28 DC Piperacillin Sod/ Tazobactam Sod (Zosyn Per Pharmacy) 1 each PRN DAILY PRN 10/16/18 13:15 Piperacillin Sod/ Tazobactam Sod 3.375 gm/Sodium Chloride 50 ml @ 100 mls/hr Q6H 10/16/18 14:00 10/21/18 06:26 100 MLS/HR Potassium Chloride (Klor-Con) 10 meq DAILY 10/16/18 09:00 10/20/18 08:49 10 MEQ Sennosides (Senna) 8.6 mg BID 10/15/18 21:00 10/20/18 21:29 8.6 MG Sodium Chloride 1,000 ml @ 125 mls/hr Q8H 10/15/18 16:25 10/16/18 09:58 DC 10/16/18 09:00 125 MLS/HR Tamsulosin HCl (Flomax) 0.4 mg DAILY 10/16/18 09:00 10/20/18 08:49 0.4 MG Temazepam (Restoril) 7.5 mg PRN QHS PRN 10/15/18 16:45 Tramadol HCl (Ultram) 50 mg PRN Q6HRS PRN 10/15/18 16:45 Vancomycin HCl (Vanco Per Pharmacy) 1 each PRN DAILY PRN 10/17/18 14:45 10/20/18 06:26 1 EACH Vancomycin HCl (Vancomycin Trough Level) 1 each 1X ONCE 10/20/18 05:30 10/20/18 05:31 DC 10/20/18 06:27 1 EACH Vancomycin HCl 1.5 gm/Sodium Chloride 500 ml @ 250 mls/hr 1X ONCE 10/17/18 15:00 10/17/18 16:59 DC 10/17/18 17:03 250 MLS/HR Vancomycin HCl 1 gm/Sodium Chloride 250 ml @ 250 mls/hr Q8HRS 10/19/18 06:00 10/20/18 21:29 250 MLS/HR Labs: Lab Laboratory Tests Test 10/20/18 11:22 10/20/18 17:17 10/20/18 20:29 10/21/18 05:00 Glucose (Fingerstick) 289 mg/dL (70-99) 134 mg/dL (70-99) 133 mg/dL (70-99) Sodium Level 138 mmol/L (136-145) Potassium Level 5.1 mmol/L (3.5-5.1) Chloride Level 97 mmol/L (98-107) Carbon Dioxide Level 43 mmol/L (21-32) Anion Gap (6-14) Blood Urea Nitrogen 23 mg/dL (8-26) Creatinine 0.6 mg/dL (0.7-1.3) Estimated GFR (Cockcroft-Gault) 133.6 Glucose Level 232 mg/dL (70-99) Calcium Level 8.8 mg/dL (8.5-10.1) Test 10/21/18 07:37 Glucose (Fingerstick) 178 mg/dL (70-99) Micro RUN DATE: 10/17/18 PAGE 1 RUN TIME: 1350 [facility] [address] [place] [address] Estuardo Pulliam M.D., Milking Machine Mechanic PATIENT: YOUNG PENNINGTON ACCT: [id number] LOC: [address] [place] [address] U: [id number] AGE/SX: 68/M ROOM: [facility] RE10/15/[address]: ALBERT MONTEZ MD : 1950 BED: 1 DIS: STATUS: ADM IN TLOC: SPEC #: [id number] RODRIGO: 10/16/18 STATUS: COMP REQ #: [id number] RECD: [id number] [facility] DR: GAIL CASTRO MD SOURCE: BLOOD ENTR: 10/15/18-153 [facility] DR: DUSTY RAGSDALE MD [facility]: ORDERED: BCULT -------- ---- Procedure Result BLOOD CULTURE Final GRAM POSITIVE COCCI IN CLUSTERS 2 SETS DRAWN, 1 OF 4 POSITIVE CALLED TO JENNIFER REYES RN IN 6S BY Shilpa ROOT,10/17/18,0815 SPECIMEN SENDING TO LAB Command Information FOR FURTHER WORK UP GRAM VARIABLE RODS IN AEROBIC CULTURE 2 SETS DRAWN, 1 OF 4 POSITIVE CALLED TO CINDY SANTANA RN IN 6S BY Shilpa ROOT,10/17/18,1345 SPECIMEN SENDING TO LAB Command Information FOR FURTHER WORK UP * This is a corrected result. * A prior result that was reported as final has been changed. Objective: Assessment: 1. Bacteremia, present on admission 03/05, 10/15/2018, coag neg staph and bacillus likely contaminant. 2. Acute on chronic respiratory failure. 3. Chronic obstructive pulmonary disease. 4. History of congestive heart failure. 5. Hypertension. Plan: Plan of Care DC IV vancomycin Cont Zosyn for deescalte soon Follow up labs,renal functions Discussed with RN. ALLIE GIRALDO MD Oct 21, 2018 08:42
[2018-10-21] MEDS: GLIMEPIRIDE 2 MG TABLET. PO SCH (09:01)
[2018-10-21] MEDS: methylPREDNISolone SOD SUCC PF 40 MG/ML VIAL. IV SCH (09:01)
[2018-10-21] MEDS: FUROSEMIDE 20 MG TABLET PO SCH (09:01)
[2018-10-21] MEDS: MAG HYDROX/ALUMINUM HYD/SIMETH 30 ML ORAL.SUSP PO PRN (09:01)
[2018-10-21] MEDS: guaiFENesin DM 200MG/20MG 10 ML SYRUP PO SCH ×2 (09:01→13:56)
[2018-10-21] MEDS: SENNOSIDES 8.6 MG TABLET PO SCH (09:01)
[2018-10-21] MEDS: NICOTINE 14MG PATCH. TD SCH (09:02)
[2018-10-21] MEDS: BENZONATATE 100 MG CAPSULE. PO SCH ×2 (09:02→13:56)
[2018-10-21] MEDS: POTASSIUM CHLORIDE 10 MEQ TABLET.ER. PO SCH (09:02)
[2018-10-21] MEDS: LACTOBACILLUS RHAMNOSUS GG 1 CAPSULE. PO SCH (09:02)
[2018-10-21] MEDS: PANTOPRAZOLE 40 MG TABLET.DR. PO SCH (09:02)
[2018-10-21] MEDS: TAMSULOSIN 0.4 MG CAP.ER.24H. PO SCH (09:02)
[2018-10-21] MEDS: GABAPENTIN 100 MG CAPSULE. PO SCH ×2 (09:02→13:56)
[2018-10-21] MEDS: INSULIN LISPRO 300 UNITS/3 ML VIAL. SQ SCH ×2 (09:15→12:00)
--- NOTE | 2018-10-21 10:06 | PDOC ---
[employer] PROGRESS NOTE Chief Complaint Chief Complaint Acute Respiratory Distress COPD Bronchitis Pneumonia Arthroscopy History of Present Illness History of Present Illness 10/21/18 Pt seen and examined at bedside On O2 NC 2.0L today sating 96% Had BiPAP PRN 10/20/18 Pt seen and examined at bedside, smiling Pt currently on BiAP, 40& FiO2, Sat 98% 10/19/18 Pt seen/examined at bedside, resting comfortably On O2 NC 2.0L today, had BiPAP treatment again last night, sating 89% Cough has improved 10/18/18 Pt seen/examined at bedside, resting comfortably On O2 NC, had BiPAP treatment last night, sating 98% Still coughing DW with case aide 10/17/18 Resting with NAD On BiPAP with 45% FiO2, sating 91% 10/16/18 Pt seen/examined at bedside On BiPAP with 45% FiO2, sating 86% Vitals/I&O Vitals/I&O: Vital Signs Date Time Temp Pulse Resp B/P (MAP) Pulse Ox O2 Delivery O2 Flow Rate FiO2 10/21/18 07:30 98.3 82 20 137/60 (85) 96 BiPAP/CPAP 98.3 10/21/18 07:08 2.0 I & O 10/20/18 10/20/18 10/21/18 14:59 22:59 06:59 Intake Total 960 ml 500 ml 300 ml Output Total 800 ml 825 ml 750 ml Balance 160 ml -325 ml -450 ml Physical Exam Physical Exam: GENERAL: Alert, oriented, pleasant male in no acute distress, sitting upright in bed, cooperative and pleasant. HEENT: Normocephalic, atraumatic and anicteric. No thrush. Oral mucosa moist. NECK: Supple, no JVD. LUNGS: Decreased breath sound at bases. HEART: S1, S2. ABDOMEN: Soft, nontender and nondistended. Bowel sounds present. NEUROLOGIC: Alert and oriented x 3, grossly nonfocal. EXTREMITIES: No edema, no cyanosis. DERMATOLOGIC: Warm and dry. No generalized rash. General: Alert, Oriented X3, Cooperative, No acute distress, Other (on bipap) Heart: Regular rate, Normal S1, Normal S2 Lungs: Wheezing (IMPROVED), Other (diminished breath sounds ) Abdomen: Normal bowel sounds, Soft, No tenderness Extremities: No clubbing Skin: No rashes, No breakdown, No significant lesion Labs Labs: Laboratory Tests Test 10/20/18 11:22 10/20/18 17:17 10/20/18 20:29 10/21/18 05:00 Glucose (Fingerstick) 289 mg/dL (70-99) 134 mg/dL (70-99) 133 mg/dL (70-99) Sodium Level 138 mmol/L (136-145) Potassium Level 5.1 mmol/L (3.5-5.1) Chloride Level 97 mmol/L (98-107) Carbon Dioxide Level 43 mmol/L (21-32) Anion Gap (6-14) Blood Urea Nitrogen 23 mg/dL (8-26) Creatinine 0.6 mg/dL (0.7-1.3) Estimated GFR (Cockcroft-Gault) 133.6 Glucose Level 232 mg/dL (70-99) Calcium Level 8.8 mg/dL (8.5-10.1) Test 10/21/18 07:37 Glucose (Fingerstick) 178 mg/dL (70-99) Review of Systems Review of Systems: co cough no co chest pain Assessment and Plan Assessmemt and Plan Problems Medical Problems: (1) Acute bronchitis Status: Acute (2) Acute respiratory distress Status: Acute (3) CHF (congestive heart failure) Status: Chronic (4) Chronic anemia Status: Acute (5) CO2 retention Status: Acute (6) COPD exacerbation Status: Acute (7) HTN (hypertension) Status: Chronic (8) Hyperglycemia Status: Acute (9) Osteoarthritis Status: Chronic (10) Pneumonia Status: Acute (11) Respiratory failure with hypercapnia Status: Acute Assessment Acute Respiratory Distress COPD Bronchitis Pneumonia Arthroscopy Plan BiPAP PRN Home meds Abx Steroids O2 NC DuoNeb PT/OT DVT prophylaxis Plan is to discharge to home health when cleared by pulmonary Comment Review of Relevant I have reviewed the following items zaire (where applicable) has been applied. Medications: Current Medications Medications (Trade) Dose Ordered Sig/Elijah Route PRN Reason Start Time Stop Time Status Last Admin Dose Admin Methylprednisolone Sodium Succinate (SOLU-Medrol 40MG VIAL) 40 mg BID IV 10/20/18 21:00 10/21/18 09:15 Albuterol Sulfate (Ventolin Neb Soln) 2.5 mg PRN Q4HRS PRN NEB SHORTNESS OF BREATH 10/20/18 22:45 10/20/18 22:57 ANÍBAL BAUTISTA III DO Oct 21, 2018 10:06
[2018-10-21 11:35] VITALS: BP 110/58
--- NOTE | 2018-10-21 11:58 | NUR ---
SW following pt. SW phoned and faxed LTAC referral to [facility]. Pt acceptance and admission pending. Will continue to follow.
--- NOTE | 2018-10-21 12:28 | PDOC ---
PULMONARY PROGRESS NOTES Subjective using bipap overnight, Vitals Vital Signs Date Time Temp Pulse Resp B/P (MAP) Pulse Ox O2 Delivery O2 Flow Rate FiO2 10/21/18 11:35 98.1 78 22 110/58 (75) 97 BiPAP/CPAP 98.1 10/21/18 11:09 2.0 ROS: No Nausea, No Chest Pain General: Alert, Oriented X4, No acute distress, Moderate Distress HEENT: Other Lungs: Wheezing (IMPROVED), Other (diminished breath sounds ) Cardiovascular: S1, S2 Abdomen: Soft, Non-tender Neuro Exam: Alert Extremities: No Edema, Other Skin: Warm Labs Laboratory Tests Test 10/19/18 16:48 10/19/18 18:59 10/20/18 05:45 10/20/18 07:05 Glucose (Fingerstick) 160 mg/dL (70-99) 295 mg/dL (70-99) 150 mg/dL (70-99) Sodium Level 143 mmol/L (136-145) Potassium Level 4.7 mmol/L (3.5-5.1) Chloride Level 101 mmol/L (98-107) Carbon Dioxide Level 45 mmol/L (21-32) Anion Gap (6-14) Blood Urea Nitrogen 25 mg/dL (8-26) Creatinine 0.6 mg/dL (0.7-1.3) Estimated GFR (Cockcroft-Gault) 133.6 Glucose Level 187 mg/dL (70-99) Calcium Level 8.7 mg/dL (8.5-10.1) Vancomycin Level Trough 13.8 mcg/mL (10.0-20.0) Vancomycin Last Dose Date 10/19/18 Vancomycin Last Dose Time 2200 Test 10/20/18 11:22 10/20/18 17:17 10/20/18 20:29 10/21/18 05:00 Glucose (Fingerstick) 289 mg/dL (70-99) 134 mg/dL (70-99) 133 mg/dL (70-99) Sodium Level 138 mmol/L (136-145) Potassium Level 5.1 mmol/L (3.5-5.1) Chloride Level 97 mmol/L (98-107) Carbon Dioxide Level 43 mmol/L (21-32) Anion Gap (6-14) Blood Urea Nitrogen 23 mg/dL (8-26) Creatinine 0.6 mg/dL (0.7-1.3) Estimated GFR (Cockcroft-Gault) 133.6 Glucose Level 232 mg/dL (70-99) Calcium Level 8.8 mg/dL (8.5-10.1) Test 10/21/18 07:37 10/21/18 11:27 Glucose (Fingerstick) 178 mg/dL (70-99) 142 mg/dL (70-99) Laboratory Tests Test 10/20/18 17:17 10/20/18 20:29 10/21/18 05:00 10/21/18 07:37 Glucose (Fingerstick) 134 mg/dL (70-99) 133 mg/dL (70-99) 178 mg/dL (70-99) Sodium Level 138 mmol/L (136-145) Potassium Level 5.1 mmol/L (3.5-5.1) Chloride Level 97 mmol/L (98-107) Carbon Dioxide Level 43 mmol/L (21-32) Anion Gap (6-14) Blood Urea Nitrogen 23 mg/dL (8-26) Creatinine 0.6 mg/dL (0.7-1.3) Estimated GFR (Cockcroft-Gault) 133.6 Glucose Level 232 mg/dL (70-99) Calcium Level 8.8 mg/dL (8.5-10.1) Test 10/21/18 11:27 Glucose (Fingerstick) 142 mg/dL (70-99) Medications Active Scripts Medications Dose Route/Sig Max Daily Dose Days Date Category Amaryl (Glimepiride) 2 Mg Tablet 2 Mg PO DAILY 09/21/18 Rx Lantus Solostar (Insulin Glargine,Hum.rec.anlog) 100 Unit/1 Ml Insuln.pen 20 Units SQ QHS 30 09/21/18 Rx Glucophage (Metformin Hcl) 500 Mg Tablet 500 Mg PO BIDWMEALS 09/21/18 Rx Guaifenesin Dm Syrup (Guaifenesin/Dextromethorphan) 5 Ml Syrup 10 Ml PO PRN Q6HRS PRN 7 09/21/18 Rx Proair Hfa (Albuterol Sulfate) 8.5 Gm Hfa.aer.ad 2.5 Mg NEB PRN Q4HRS PRN 30 09/21/18 Rx Tessalon Perle (Benzonatate) 100 Mg Capsule 100 Mg PO TID PRN 7 09/21/18 Rx Advair 500-50 Diskus (Fluticasone/Salmeterol) 1 Each Disk.w.dev 1 Puff IH BID 08/08/18 Rx Senna (Sennosides) 8.6 Mg Tablet 8.6 Mg PO BID 05/18/18 Reported Maalox Advanced Suspension (Mag Hydrox/Aluminum Hyd/Simeth) 355 Ml Oral.susp 355 Ml PO PRN Q6HRS PRN 05/18/18 Reported Duoneb 0.5-3(2.5) Mg/3 Ml (Albuterol/Ipratropium) 3 Ml Ampul.neb 3 Ml NEB RTQID MDD 1 05/10/18 Rx Protonix (Pantoprazole Sodium) 40 Mg Tablet.dr 40 Mg PO DAILY 11/18/15 Reported Potassium Chloride 10 Meq Capsule.er 10 Meq PO DAILY 11/18/15 Reported Lasix (Furosemide) 20 Mg Tablet 1 Tab PO DAILY 11/18/15 Reported Flomax (Tamsulosin Hcl) 0.4 Mg Cap.er.24h 1 Cap PO DAILY 10/11/15 Reported Metoprolol Tartrate 25 Mg Tablet 12.5 Mg PO BID 10/11/15 Reported Impression . 1. Acute on chronic respiratory failure secondary to acute exacerbation of chronic obstructive pulmonary disease, acute bronchitis 2. Acute exacerbation of chronic obstructive pulmonary disease. 3. Acute bronchitis. 4. Ex-smoker. 5. Congestive heart failure. Plan . 1. Titrate FiO2 to keep O2 saturation 90%. 2. Bronchodilator.with pulmicort 3. Solu-Medrol with taper 4. Continue BiPAP p.r.n. during day, continuously at night. 5. We need to make sure his Trilogy machine is in working condition at home. d/w RN and outreach and education social worker. Message left for [employer] 6. Continue not smoking. 7. lower extremity venous Doppler, neg. discussed w pt/ community case manager. would benefit from LTAC PAULA Norman MD Oct 21, 2018 12:28
--- NOTE | 2018-10-21 13:23 | NUR ---
SW following pt. Pt has been accepted at [facility] and can go to day. RN to check with ID and Pulmonary. Dr. Cutler notified.
--- NOTE | 2018-10-21 15:12 | SNU/HH DC ---
DISCHARGE ORDERS DISCHARGE INFORMATION: FINAL DIAGNOSIS Problems Medical Problems: (1) Acute bronchitis Status: Acute (2) Acute respiratory distress Status: Acute (3) CHF (congestive heart failure) Status: Chronic (4) Chronic anemia Status: Acute (5) CO2 retention Status: Acute (6) COPD exacerbation Status: Acute (7) HTN (hypertension) Status: Chronic (8) Hyperglycemia Status: Acute (9) Osteoarthritis Status: Chronic (10) Pneumonia Status: Acute (11) Respiratory failure with hypercapnia Status: Acute CONDITION ON DISCHARGE: Stable CODE STATUS: Code Status: Full MCC: SNF STAY <30 DAYS: No HOSPICE: HOSPICE: No HOSPICE EVAL & TREAT: No LTAC: ADMIT TO LTAC: Yes POST DISCHARGE ORDERS: ACTIVITY ORDERS: Activity as tolerated WEIGHT BEARING STATUS: As tolerated DIET AFTER DISCHARGE: Cardiac WOUND/INCISION CARE: No wound care needed CHECKS AFTER DISCHARGE: CHECKS AFTER DISCHARGE: Check blood press - daily, Check blood sugar, ac/hs, Check your Temp as needed, Weigh Yourself Daily TREATMENT/EQUIPMENT ORDERS: ADAPTIVE EQUIPMENT NEEDED: None RESPIRATORY EQUIPMENT NEEDED: Oxygen Physical Therapy For: Evalulation/Treatment Occupational Therapy For: Evaluation/Treatment Speech Language Pathology For: Evaluation/Treatment DISCHARGE MEDICATIONS: Home Meds Active Scripts Glimepiride (AMARYL) 2 Mg Tablet, 2 MG PO DAILY for dm 2, #60 TAB Prov:ALBERT MONTEZ MD 09/21/18 Insulin Glargine,Hum.rec.anlog (LANTUS SOLOSTAR) 100 Unit/1 Ml Insuln.pen, 20 UNITS SQ QHS for dm for 30 Days, EACH Prov:ALBERT MONTEZ MD 09/21/18 Metformin Hcl (GLUCOPHAGE) 500 Mg Tablet, 500 MG PO BIDWMEALS for dm, #60 TAB Prov:ALBERT MONTEZ MD 09/21/18 Guaifenesin/Dextromethorphan (GUAIFENESIN DM SYRUP) 5 Ml Syrup, 10 ML PO PRN Q6HRS PRN for COUGH, 1ST CHOICE for 7 Days, MISC Prov:ALBERT MONTEZ MD 09/21/18 Albuterol Sulfate (Proair Hfa) 8.5 Gm Hfa.aer.ad, 2.5 MG NEB PRN Q4HRS PRN for SHORTNESS OF BREATH for 30 Days, INHALER Prov:ALBERT MONTEZ MD 09/21/18 Benzonatate (TESSALON PERLE) 100 Mg Capsule, 100 MG PO TID PRN for COUGH for 7 Days, #21 CAP Prov:ALBERT MONTEZ MD 09/21/18 Fluticasone/Salmeterol (ADVAIR 500-50 DISKUS) 1 Each Disk.w.dev, 1 PUFF IH BID for copd, #1 INHALER 5 Refills Prov:ALBERT MONTEZ MD 08/08/18 Ipratropium/Albuterol Sulfate (DUONEB 0.5-3(2.5) MG/3 ML) 3 Ml Ampul.neb, 3 ML NEB RTQID for copd MDD 1, #30 EACH Prov:ALBERT MONTEZ MD 05/10/18 Reported Medications Sennosides (SENNA) 8.6 Mg Tablet, 8.6 MG PO BID for constipation, TAB 05/18/18 Mag Hydrox/Aluminum Hyd/Simeth (Maalox Advanced Suspension) 355 Ml Oral.susp, 355 ML PO PRN Q6HRS PRN for HEARTBURN / GAS, MISC 05/18/18 Pantoprazole Sodium (PROTONIX ) 40 Mg Tablet.dr, 40 MG PO DAILY, TAB 1 Refill 11/18/15 Potassium Chloride (POTASSIUM CHLORIDE) 10 Meq Capsule.er, 10 MEQ PO DAILY, TAB.SR 11/18/15 Furosemide (LASIX) 20 Mg Tablet, 1 TAB PO DAILY, #90 TAB 1 Refill 11/18/15 Tamsulosin Hcl (FLOMAX) 0.4 Mg Cap.er.24h, 1 CAP PO DAILY, #30 CAP 11 Refills 10/11/15 Metoprolol Tartrate (METOPROLOL TARTRATE) 25 Mg Tablet, 12.5 MG PO BID, #180 TAB 1 Refill 10/11/15 ANÍBAL BAUTISTA III DO Oct 21, 2018 15:12
[2018-10-21 15:15] VITALS: BP 142/78
--- NOTE | 2018-10-21 16:07 | NUR ---
SW following pt. Orders faxed to [facility] and pt will transport via [facility] at 1630. Pt aware of plans and agreeable. Discussed with RN.
--- NOTE | 2018-10-21 20:33 | DS ---
DATE OF DISCHARGE: 10/21/2018 ADMISSION DIAGNOSIS: Respiratory failure with end-stage chronic obstructive pulmonary disease. DISCHARGE DIAGNOSIS: Respiratory failure with end-stage chronic obstructive pulmonary disease. CONSULTS: 1. Dr. Hunt. 2. Dr. Torres, Infectious Disease. PROCEDURES: None. HOSPITAL COURSE: The patient is a pleasant middle-aged male who has end-stage COPD. He once again presented with respiratory failure. We admitted the patient. He did have some bacteremia as well. We had to consult Infectious Disease and Pulmonary. We gave him IV steroids, breathing treatments, and oxygen. He also received IV vancomycin and Zosyn, although the vancomycin at this point has been stopped. This morning, I saw him and examined him. He is doing a little better, but is still quite ill. He qualifies for long-term acute care. We consulted [facility]. He has been accepted. We plan to discharge to [facility]. DISPOSITION: [facility]. ACTIVITY: As tolerated. DIET: Low sodium. MEDICATIONS: Please see the MRAD. TOTAL TIME: 39 minutes. ANÍBAL BAUTISTA DO DR: JAKE/joshua JOB#: [id number] / [id number]
== END 2018-10-21 16:53 | DRG 189 ==
LOC: ER 15:26 → 6 SOUTH 15:35
PROVIDERS: ADMIT Internal Medicine; ATTEND Internal Medicine
PROC: 5A09357 Assistance with Respiratory Ventilation, Less than 24 Consecutive Hours, Continuous Positive Airway Pressure (ICD-10-PCS; principal; 2018-10-15)
PROC: 5A09357 Assistance with Respiratory Ventilation, Less than 24 Consecutive Hours, Continuous Positive Airway Pressure (ICD-10-PCS; 2018-10-16)
PROC: 5A09357 Assistance with Respiratory Ventilation, Less than 24 Consecutive Hours, Continuous Positive Airway Pressure (ICD-10-PCS; 2018-10-17)
PROC: 5A09357 Assistance with Respiratory Ventilation, Less than 24 Consecutive Hours, Continuous Positive Airway Pressure (ICD-10-PCS; 2018-10-18)
PROC: 5A09357 Assistance with Respiratory Ventilation, Less than 24 Consecutive Hours, Continuous Positive Airway Pressure (ICD-10-PCS; 2018-10-19)
PROC: 5A09357 Assistance with Respiratory Ventilation, Less than 24 Consecutive Hours, Continuous Positive Airway Pressure (ICD-10-PCS; 2018-10-20)
PROC: 5A09357 Assistance with Respiratory Ventilation, Less than 24 Consecutive Hours, Continuous Positive Airway Pressure (ICD-10-PCS; 2018-10-21)
DX: J96.22 Acute and chronic respiratory failure with hypercapnia (principal); J18.9 Pneumonia, unspecified organism; J44.0 Chronic obstructive pulmonary disease with (acute) lower respiratory infection; E87.2 Acidosis; J44.1 Chronic obstructive pulmonary disease with (acute) exacerbation; J96.20 Acute and chronic respiratory failure, unspecified whether with hypoxia or hypercapnia; D64.9 Anemia, unspecified; I11.0 Hypertensive heart disease with heart failure; I50.9 Heart failure, unspecified; J20.9 Acute bronchitis, unspecified; K21.9 Gastro-esophageal reflux disease without esophagitis; M19.90 Unspecified osteoarthritis, unspecified site; R73.9 Hyperglycemia, unspecified; N40.0 Benign prostatic hyperplasia without lower urinary tract symptoms; Z82.49 Family history of ischemic heart disease and other diseases of the circulatory system; Z87.891 Personal history of nicotine dependence; Z99.81 Dependence on supplemental oxygen; Z88.5 Allergy status to narcotic agent; Z79.84 Long term (current) use of oral hypoglycemic drugs; Z79.899 Other long term (current) drug therapy
CPT/HCPCS: 36415; 71045; 80048; 80053; 80202; 82550; 82805; 82962; 83605; 83880; 84484; 85025; 87040; 87077; 87205; 93005; 93970; 94640; 94660; 94760; 96361; 96374; J0696; J1815; J2543; J2920; J2930; J3370; J7030; J7040; J7050; J7613; J7620; J7626; 97116; 97530; 97535; 99291-25; G0378